=== PATIENT | female | born 1995 | race Caucasian/White ===

== ENCOUNTER → 2019-10-11 07:11 | Outpatient (CLI) | payer MEDICAID, SELFPAY ==
[2019-07-24 06:45] VITALS: BMI 46.3
--- NOTE | 2019-10-12 17:02 | PFTCOMP ---
COMPLETE PULMONARY FUNCTION TEST INTERPRETATION Brief HPI: Patient is a 24 year old female, currently under the care of myself, who presents to [facility] for complete pulmonary function tests secondary to diagnosis of asthma. Respiratory therapist reports good effort and reproducible results. Interpretation: Forced expiration spirometry shows a mild large airways obstructive ventilatory defect with an FEV1 of 118% predicted. There is a significant bronchodilator response in FEV1 by strict ATS criteria. Spirograms are of good quality and plateau normally. The respiratory flow volume loop shows a normal pattern. Lung volumes by body plethysmography show an elevated total lung capacity at 6.89 L, 124% predicted. All other lung volumes are increased symmetrically. Diffusion capacity by carbon monoxide is normal at 86% predicted. The airway resistance is normal. No previous pulmonary function tests were available for review. Impression: Fully reversible mild large airways obstructive ventilatory defect, diagnostic of asthma.
== END ==
PROVIDERS: Family Provider Student in an Organized Health Care Education/Training Program; PCP Student in an Organized Health Care Education/Training Program; Referring Provider Internal Medicine Critical Care Medicine; Visit Provider Internal Medicine Critical Care Medicine
DX: J45.50 Severe persistent asthma, uncomplicated (principal)
CPT/HCPCS: 94060; 94726; 94729

== ENCOUNTER → 2020-07-31 15:54 | Outpatient (CLI) | payer MEDICAID, SELFPAY ==
[2020-07-31 11:12] VITALS: BMI 47.4
--- NOTE | 2020-07-31 15:56 | US_ITS ---
STUDY: ULTRASOUND OF THE FEMALE PELVIS - COMPLETE REASON FOR EXAM: Female, 25 years old. Follow-up right ovarian cyst. LMP: 07/25/2020. TECHNIQUE: Transvaginal TECHNICAL QUALITY: Adequate. COMPARISON: None. FINDINGS: The uterus is anteverted and is in a midline position. The uterus measures 6.9 x 3.9 x 3.2 cm. There is a Nabothian cyst of the cervix. The endometrium measures 5 mm in thickness, and is hyperechoic. There is minimal cystic change with echogenic foci in the lower uterine segment of uncertain etiology. There is no demonstrated endometrial mass. There is no demonstrated myometrial mass. I.U.D. - The patient does not have an I.U.D. The right ovary is visualized. The right ovary measures 4.6 x 2.9 x 2.2 cm. There are multiple follicles of the right ovary with a dominant 2.0 x 1.8 x 1.5 cm septated cyst.. There is no visualized right adnexal mass or complex lesion. There is normal arterial and normal venous vascularity. The left ovary is visualized. The left ovary measures 2.5 x 2.2 x 1.4 cm. There are multiple follicles of the left ovary without a dominant cyst. There is no visualized left adnexal mass or complex lesion. There is normal arterial and normal venous vascularity. There is no fluid in the cul-de-sac. The urinary bladder is nondistended.. Polycystic ovary disease: No. US/Transvaginal Non- IMPRESSION: 1. Small septated cyst in the right ovary. 2. Normal left ovary and uterus. Electronically Signed: Lucio Leavitt DO at 16:45 EDT Tel [phone], Service support ,
== END ==
PROVIDERS: PCP Student in an Organized Health Care Education/Training Program; Referring Provider Obstetrics & Gynecology; Visit Provider Obstetrics & Gynecology
DX: N83.201 Unspecified ovarian cyst, right side (principal)
CPT/HCPCS: 76830

== ENCOUNTER → 2021-01-16 | Outpatient (CLI) | payer MEDICAID, SELFPAY ==
[2021-01-16 09:52] VITALS: BMI 46.0
[2021-01-20 16:44] LABS: HPV Reflexed? NOT INDICATED
== END | disposition home or self-care (01) ==
LOC: LABSPEC 12:34
PROVIDERS: PCP Student in an Organized Health Care Education/Training Program; Visit Provider Obstetrics & Gynecology
DX: Z12.4 Encounter for screening for malignant neoplasm of cervix (principal)
CPT/HCPCS: 88175; G0145

== ENCOUNTER 2021-02-09 16:42 | Emergency (ER) | payer MEDICAID, SELFPAY ==
[2021-01-16 09:52] VITALS: BMI 46.0
[2021-02-09 16:43] VITALS: BP 151/97; PULSE 94; RESP 16; TEMP 36.6; O2SAT 99; BMI 47.7
--- NOTE | 2021-02-09 16:54 | CT_ITS ---
INDICATION: Kidney Stone EXAMINATION: CT Abdomen And Pelvis W/O Contrast Injection TECHNIQUE: Helically acquired images were obtained of the abdomen and pelvis without the use of IV contrast. A radiation dose optimization technique was used for this scan. Oral contrast: None. COMPARISON: None FINDINGS: Evaluation of the solid organs and vascular structures is limited without intravenous contrast. Visualized lung bases: Unremarkable Liver: Unremarkable Gallbladder: Surgically absent. Spleen: Unremarkable Pancreas: Unremarkable Adrenal Glands: Unremarkable Kidneys: Unremarkable Vasculature: Unremarkable GI Tract: Unremarkable Lymphadenopathy: None Peritoneum: No ascites. Bladder: Unremarkable Reproductive organs: Unremarkable Bones/Soft tissues: No suspicious osseous or soft tissue lesions CT/Abdomen/Pelvis without Cont IMPRESSION: No acute abnormalities in the abdomen or pelvis. Specifically, no evidence of renal or ureteral stones. Electronically Signed: Ajay Deng MD at 19:18 EDT Tel , Service support ,
--- NOTE | 2021-02-09 16:58 | EX.ED.DYSGE1 ---
HPI History of Present Illness Chief Complaint: Flank Pain Informant: patient Onset/Context/Timing Onset: Yesterday Context: Gradual Onset Timing: Intermittent Current Severity: Moderate Maximum Severity: Moderate Narrative Narrative: The patient is a 26-year-old female medical history significant for GERD, asthma, and recurrent UTI presents to the emergency department flank pain. The patient states that for the past 3 days, she has had a strong odor to her urine. She states over the past 24 hours, she has begun to have pain in her right flank. She was mildly nauseated. She denies any fevers or chills. She denies history of kidney stone. She denies hematuria. She states that she is otherwise been in her normal state of health. She has not been on antibiotics recently. Prior similar symptoms: Yes Recent Illness/Hospitalization: No [facility], [facility] Medical History Allergic rhinitis Cough Dyspnea Environmental allergies GERD (gastroesophageal reflux disease) Leukocytosis Mild intermittent asthma in adult without complication LUCY (obstructive sleep apnea) SOB (shortness of breath) Home Medications albuterol sulfate 90 mcg/actuation aerosol inhaler 1 puff INHALATION Q6H 07/23/19 [History Last Taken Unknown] fluticasone furoate 200 mcg-vilanterol 25 mcg/dose inhalation powder 1 inh INHALATION DAILY #60 ea 03/20/20 [Rx Last Taken Unknown] labetalol 200 mg tablet 200 mg PO BID 01/16/21 [History Last Taken Unknown] levonorgestrel-ethinyl estradiol 0.1 mg-20 mcg tablet 1 tablet PO DAILY #84 tablet 01/16/21 [Rx Last Taken Unknown] ondansetron 4 mg PO Q8H PRN PRN #10 tab 02/09/21 [Rx Last Taken Unknown] Allergy/AdvReac Type Severity Reaction Status Date / Time Penicillins Allergy rash Verified 02/09/21 16:42 Family History Father CVA (cerebral vascular accident) Mother Intrinsic asthma Grandfather Diabetes COPD (chronic obstructive pulmonary disease) Surgical History History of foot surgery History of tonsillectomy S/P cholecystectomy Social History Smoking Status: Never smoker alcohol intake: never substance use type: does not use caffeine: Yes what type of physical activity do you participate in: none seatbelt use: always do you feel safe at home: Yes ROS ROS ED Constitutional Constitutional ED: Denies chills or fever(s) Eyes Eyes: Denies blurry vision or change in vision ENT ENT ED: Denies ear pain or sore throat Cardiovascular Cardiovascular: Denies chest pain or palpitations Respiratory/Chest Respiratory/Chest: Denies cough, dyspnea or dyspnea on exertion Gastrointestinal Gastrointestinal: Reports nausea; Denies abdominal pain or vomiting Genitourinary Genitourinary ED: Reports dysuria and urinary frequency Musculoskeletal Musculoskeletal: Reports back pain and myalgias; Denies arthralgias Integumentary Denies rash Neurologic Neurologic: Denies headache(s) or paresthesias Psychiatric Psychiatric: Denies anxiety or depression Endocrine Endocrinology: Denies polydipsia or polyuria Allergic/Immunologic Allergic/Immunologic ED: Denies urticaria EXAM Physical Exam Const Vital Signs: 02/09/21 16:43 Temperature 97.9 F Temperature Source Oral Pulse Rate 94 Respiratory Rate 16 Blood Pressure 151/97 H Blood Pressure Mean 115 Pulse Ox 99 Oxygen Delivery Method Room Air Positive well nourished and well developed General Appearance ED: well developed HEENT Reports normocephalic, head/scalp atraumatic and moist mucous membranes Eyes PERRL and EOMs intact bilaterally Neck no lymphadenopathy and supple General: Negative for tenderness Chest Wall inspection of chest normal Resp normal respiratory effort and clear to auscultation bilaterally Cardio regular rate, regular rhythm and no murmurs GI normal to inspection, nondistended, normoactive bowel sounds Palpation: Negative for tender, guarding or rebound tenderness present Back/Spine General Back: CVA tenderness Cervical Spine: Negative for cervical spine tenderness Thoracic Spine / Upper Back: Negative for thoracic spinal tenderness Extremity normal to inspection General Extremety ED: Negative for tenderness Neuro oriented x3 and CN's II-XII intact bilaterally Neuro Narrative: No focal deficits appreciated. Sensorium / Orientation: alert Psych mental status grossly normal Skin no rashes or lesions noted, no wounds and skin turgor normal MDM MDM MDM Narrative Medical decision making narrative: The patient presents with right-sided flank pain. She states that she did have strong odor to her urine. She does have a history of kidney infection. She has mild tenderness in the CVA area. IV was established. The patient was given fluids, Toradol, and Zofran. She was feeling improved. Labs are relatively unremarkable. Her urine does not show evidence of infection. She is not . There was some blood and trace ketones. She does have a bicarb of 19. The patient underwent CT imaging. There is no evidence of obstructing stone. There is no enhancement consistent with James. Again, her urine is normal. At this point, I am unclear of the acute etiology of her pain but I do not suspect a dangerous process. Her skin shows no rash. Patient was counseled on oral hydration. At this point, she will be discharged home. Impression 1. Right flank pain Lab Data Attestation: I reviewed the patient's lab results. Labs: Laboratory Results - last 24 hr 02/09/21 02/09/21 02/09/21 17:01 17:01 17:11 WBC 7.5 RBC 5.08 Hgb 14.1 Hct 43.4 MCV 85.4 MCH 27.8 MCHC 32.5 RDW Std Deviation 38.9 RDW Coeff of Juan Diego 12.7 Plt Count 288 MPV 10.3 Immature Gran % (Auto) 0.100 Neut % (Auto) 69.0 Lymph % (Auto) 21.2 Brewster % (Auto) 7.0 Eos % (Auto) 2.0 Baso % (Auto) 0.7 Absolute Neuts (auto) 5.1 Absolute Lymphs (auto) 1.58 Nucleated RBC % 0 Sodium Potassium Chloride Carbon Dioxide Anion Gap BUN Creatinine Estim Creat Clear Calc Est GFR (MDRD) Af Amer Est GFR (MDRD) Non-Af BUN/Creatinine Ratio Glucose Calcium Urine Color Yellow Urine Clarity Clear Urine pH 7.0 Ur Specific Alpine 1.010 Urine Protein 30 H Urine Glucose (UA) Normal Urine Ketones 5 H Urine Occult Blood 150 H Urine Nitrite Negative Urine Bilirubin Negative Urine Urobilinogen Normal Ur Leukocyte Esterase Negative Urine RBC 0-5 SEEN Urine WBC 0 SEEN Ur Squamous Epith Cells 0-5 SEEN Urine Bacteria 0 SEEN Urine Mucus 1+ Urine Test Negative 02/09/21 17:11 WBC RBC Hgb Hct MCV MCH MCHC RDW Std Deviation RDW Coeff of Juan Diego Plt Count MPV Immature Gran % (Auto) Neut % (Auto) Lymph % (Auto) Brewster % (Auto) Eos % (Auto) Baso % (Auto) Absolute Neuts (auto) Absolute Lymphs (auto) Nucleated RBC % Sodium 136 Potassium 3.7 Chloride 109 H Carbon Dioxide 19.0 L Anion Gap 8 BUN 10 Creatinine 0.80 Estim Creat Clear Calc 98.88 Est GFR (MDRD) Af Amer 111 Est GFR (MDRD) Non-Af 92 BUN/Creatinine Ratio 12.6 Glucose 101 Calcium 8.9 Urine Color Urine Clarity Urine pH Ur Specific Alpine Urine Protein Urine Glucose (UA) Urine Ketones Urine Occult Blood Urine Nitrite Urine Bilirubin Urine Urobilinogen Ur Leukocyte Esterase Urine RBC Urine WBC Ur Squamous Epith Cells Urine Bacteria Urine Mucus Urine Test Radiography Diagnostic Testing: Radiology Impression Abdomen/Pelvis CT 02/09/21 16:54 IMPRESSION: No acute abnormalities in the abdomen or pelvis. Specifically, no evidence of renal or ureteral stones. Electronically Signed: Ajay Deng MD at 19:18 EDT Tel , Service support , Discharge Plan Triage Chief Complaint: Flank Pain ED Provider: Desean Rothman Dx/Rx/DC Orders Instructions: ED Flank Pain, Uncertain Cause Prescriptions: New ondansetron [ondansetron] 4 MG tablet 4 mg PO Q8H PRN PRN (Reason: Nausea) Qty: 10 RF: 0 No Action albuterol sulfate [Ventolin HFA] 90 mcg/actuation HFA aerosol inhaler 1 puff INHALATION Q6H RF: 0 labetalol 200 mg tablet 200 mg PO BID RF: 0 levonorgestrel-ethinyl estrad 0.1-20 mg-mcg tablet 1 tablet PO DAILY Qty: 84 RF: 4 Breo Ellipta 200-25 mcg/dose blister with device 1 inh INHALATION DAILY Qty: 60 RF: 6 Primary Care Provider: Amy Chan Referrals: Amy Chan MD [Primary Care Provider] -
[2021-02-09] MEDS: Ondansetron 4 MG/2 ML Vial IV (17:09)
[2021-02-09] MEDS: 0.9% Normal Saline 1,000 ML 250 ML IV (17:09)
[2021-02-09] MEDS: Ketorolac 15 MG/ML Vial IV (17:09)
[2021-02-09 17:17] LABS: Bacteria 0 SEEN /hpf (None Seen); White Blood Cells 0 SEEN /hpf (0-5)
[2021-02-09 17:33] LABS: Absolute Lymphocyte Count 1.58 X10^3/uL (0.83-4.51); Absolute Neutrophil Count 5.1 X10^3/uL (2.0-7.7); Basophil# 0.05 X10^3/uL; Basophil% 0.7 % (0-1); Eosinophil# 0.15 X10^3/uL; Hematocrit 43.4 % (37-47); Hemoglobin 14.1 g/dL (12.0-15.0); Lymphocyte # 1.58 X10^3/ul (0.83-4.51); Lymphocyte % 21.2 % (19-41); Mean Corp Hgb Conc 32.5 g/dL (32-36); Mean Corpuscular Hgb 27.8 pg (27.0-32.0); Mean Corpuscular Volume 85.4 fL (81-99); Mean Platelet Vol. 10.3 fl (6.2-12.0); Monocyte# 0.52 X10^3/uL; NRBC Flagged by Analyzer 0 % (0-5); Neutrophil # 5.14 X10^3/uL (2.7-7.7); Platelet Count 288 K/mm3 (150-450); RBC Distribution Width CV 12.7 % (11.6-14.6); RBC Distribution Width SD 38.9 fl (35.1-43.9); Red Blood Count 5.08 M/mm3 (4.2-5.4); White Blood Count 7.5 K/mm3 (4.4-11.0)
[2021-02-09 17:36] LABS: Color, Urine Yellow (Yellow); Glucose, Dipstick Normal (Normal); Ketone-Dipstick 5 mg/dl (Negative); Leukocyte Esterase-Dipstick Negative /ul (Negative); Nitrite-Dipstick Negative (Negative); Occult Blood-Urine 150 /ul (Negative); Protein-Dipstick 30 mg/dl (Negative); Urine Bilirubin Dipstick Negative (Negative); Urine Clarity Clear (Clear); Urine Urobilinogen Normal (Normal)
[2021-02-09 17:51] LABS: Internal QC Validated? YES +Cl - CLEAR BKGD; Pregnancy, Urine Negative Negative
[2021-02-09 17:56] LABS: Mucous, Urine 1+ /hpf (<or=2+); Red Blood Cells-Urine 0-5 SEEN /hpf (0-5); Squamous Epithelial Cells - UA 0-5 SEEN /hpf (5-10)
[2021-02-09 18:03] LABS: Anion Gap 8 (5-15); BUN 10 mg/dL (7-18); BUN/Creat Ratio 12.6 RATIO (10-20); Calcium,Total 8.9 mg/dL (8.5-10.1); Chloride 109 mmol/L (98-107); EST Glomerular Filtration Rate 92 mL/min (>60); Est Glom Filt Rate - Afr Amer 111 mL/min (>60); Estimated Creatinine Clearance 98.88 ml/min; Glucose 101 mg/dL (74-106); Potassium 3.7 mmol/L (3.5-5.1); Sodium Level 136 mmol/L (136-145)
[2021-02-09 19:35] VITALS: RESP 16
== END 2021-02-09 19:36 | disposition home or self-care (01) ==
LOC: ED 17:14
PROVIDERS: Emergency Provider Emergency Medicine; PCP Student in an Organized Health Care Education/Training Program
DX: R10.9 Unspecified abdominal pain (principal); J45.20 Mild intermittent asthma, uncomplicated; Z79.3 Long term (current) use of hormonal contraceptives; Z79.51 Long term (current) use of inhaled steroids
CPT/HCPCS: 74176; 80048; 81001; 81025; 85025; 96361; 96374; 96375; 99283; J7030; A4216; J2405

== ENCOUNTER 2021-09-07 17:01 | Emergency (ER) | payer MEDICAID, SELFPAY ==
[2021-09-07 17:01] VITALS: BP 164/119; PULSE 102; RESP 17; TEMP 39; O2SAT 100; BMI 46.5
--- NOTE | 2021-09-07 17:08 | RAD_ITS ---
STUDY: X-RAY CHEST REASON FOR EXAM: Female, 26 years old. Cough. Cold symptoms. Chest congestion with body aches and headache and fever. Symptoms began 4 days ago. TECHNIQUE: Single AP portable view of the chest. COMPARISON: None. FINDINGS: The lungs are clear and expanded. There is no demonstrated pleural abnormality. Normal size heart. Normal mediastinum and erica. Normal visualized pulmonary arteries. Normal visualized aortic arch and descending thoracic aorta. Normal visualized thoracic spine. Normal visualized ribs, clavicles, and shoulders. There is no demonstrated abnormality of the visualized soft tissue structures of the upper abdomen. RAD/Chest 1 View IMPRESSION: Normal x-ray examination of the chest. Electronically Signed: Lucio Leavitt DO at 17:18 EST Tel [phone], Service support ,
[2021-09-07 17:38] VITALS: TEMP 37.3
--- NOTE | 2021-09-07 18:18 | EX.ED.DYSGE1 ---
HPI History of Present Illness Chief Complaint: Fever Informant: patient Narrative Narrative: 26-year-old female presents to the emergency room on day 4 of not feeling well. The patient states that she has body aches headache fever malaise rhinorrhea and cough. No change in her chronic diarrhea. She does have a history of asthma. She is not vaccinated [facility] Medical History Allergic rhinitis Environmental allergies GERD (gastroesophageal reflux disease) Leukocytosis LUCY (obstructive sleep apnea) Home Medications labetalol 200 mg tablet 200 mg PO BID 01/16/21 [History Last Taken Unknown] levonorgestrel-ethinyl estradiol 0.1 mg-20 mcg tablet 1 tablet PO DAILY #84 tablet 01/16/21 [Rx Last Taken Unknown] ondansetron 4 mg PO Q8H PRN PRN #10 tab 02/09/21 [Rx Last Taken Unknown] medroxyprogesterone 150 mg/mL intramuscular suspension 150 mg IM [id number] #1 ml 03/23/21 [Rx Last Taken Unknown] albuterol sulfate 2.5 mg INHALATION Q4H PRN #180 ml 05/27/21 [Rx Last Taken Unknown] albuterol sulfate 90 mcg/actuation aerosol inhaler 1 puff INHALATION Q6H #8.5 g 05/27/21 [Rx Last Taken Unknown] fluticasone furoate 200 mcg-vilanterol 25 mcg/dose inhalation powder 1 inh INHALATION DAILY #60 ea 05/27/21 [Rx Last Taken Unknown] metformin 500 mg tablet 500 mg PO DAILY 05/27/21 [History Last Taken Unknown] dexamethasone 6 mg PO DAILY #7 tab 09/07/21 [Rx Last Taken Unknown] ibuprofen 600 mg PO Q6H PRN PRN #20 tablet 09/07/21 [Rx Last Taken Unknown] Allergy/AdvReac Type Severity Reaction Status Date / Time Penicillins Allergy rash Verified 09/07/21 17:06 Family History Father CVA (cerebral vascular accident) Mother Intrinsic asthma Grandfather Diabetes COPD (chronic obstructive pulmonary disease) Surgical History History of foot surgery History of tonsillectomy S/P cholecystectomy Social History Smoking Status: Never smoker alcohol intake: never substance use type: does not use caffeine: Yes what type of physical activity do you participate in: none seatbelt use: always do you feel safe at home: Yes ROS ROS ED Constitutional Constitutional ED: Reports chills, fever(s) and sweats; Denies weight loss Eyes Eyes: Denies change in vision or diplopia ENT ENT ED: Reports rhinorrhea; Denies ear pain or sore throat Cardiovascular Cardiovascular: Denies chest pain, orthopnea, palpitations or racing heartbeat Respiratory/Chest Respiratory/Chest: Reports cough; Denies dyspnea or orthopnea Gastrointestinal Gastrointestinal: Reports diarrhea and nausea; Denies abdominal pain or vomiting Genitourinary Genitourinary ED: Denies dysuria, hematuria or urinary frequency Musculoskeletal Musculoskeletal: Reports myalgias; Denies arthralgias Integumentary Denies abscess or rash Neurologic Neurologic: Reports headache(s); Denies weakness Psychiatric Psychiatric: Denies anxiety, depression, suicidal ideation or suicidal thoughts Endocrine Endocrinology: Denies polydipsia, polyphagia or polyuria Allergic/Immunologic Allergic/Immunologic ED: Denies mouth swelling, tongue swelling or urticaria EXAM Physical Exam Const Vital Signs: 09/07/21 17:01 09/07/21 17:38 Temperature 102.2 F H 99.1 F Temperature Source Temporal Oral Pulse Rate 102 H Respiratory Rate 17 Respiratory Effort Normal Non-Labored Respiratory Pattern Normal Blood Pressure 164/119 H Blood Pressure Mean 134 Pulse Ox 100 Oxygen Delivery Method Room Air Positive well nourished, well developed and obese General Appearance ED: well developed Nutritional Appearance: obese HEENT Reports normocephalic, head/scalp atraumatic, TM's clear and moist mucous membranes HEENT Narrative: Rhinorrhea Negative for trauma Tympanic Membrane ED: Yes TM's clear Eyes PERRL and EOMs intact bilaterally Neck no lymphadenopathy, supple and no JVD Resp normal respiratory effort and clear to auscultation bilaterally Cardio regular rate, regular rhythm and no murmurs GI normal to inspection, nondistended, normoactive bowel sounds and non-tender Palpation: soft Back/Spine no CVA tenderness and normal ROM Extremity normal to inspection General Extremety ED: Negative for edema General Extremity: Negative for edema Neuro oriented x3 and CN's II-XII intact bilaterally Sensorium / Orientation: alert Motor Exam: strength 5/5 throughout Psych Mood & Affect: tearful; Negative for depressed Skin no rashes or lesions noted and no wounds MDM MDM MDM Narrative Medical decision making narrative: My interpretation of the chest x-ray is no acute process. Patient is Covid positive. Because of her history of asthma ago placed her on dexamethasone and she meets qualifications for monoclonal antibody treatment which she is interested in. Radiography Diagnostic Testing: Clinical Impression(s) from Imaging Studies Chest X-Ray 09/07/21 17:08 IMPRESSION: Normal x-ray examination of the chest. Electronically Signed: Lucio Leavitt DO at 17:18 EST Tel [phone], Service support , Discharge Plan Triage Chief Complaint: Fever ED Provider: Tony Thompson Dx/Rx/DC Orders Clinical Impression: COVID-19 Instructions: Coronavirus Disease 2019 (COVID-19): Caring for Yourself or Others Prescriptions: New dexamethasone 6 MG tablet 6 mg PO DAILY Qty: 7 RF: 0 ibuprofen 600 MG tablet 600 mg PO Q6H PRN PRN (Reason: Pain) Qty: 20 RF: 0 No Action labetalol 200 mg tablet 200 mg PO BID RF: 0 levonorgestrel-ethinyl estrad 0.1-20 mg-mcg tablet 1 tablet PO DAILY Qty: 84 RF: 4 medroxyprogesterone [Depo-Provera] 150 mg/mL suspension 150 mg IM [id number] Qty: 1 RF: 4 metformin 500 mg tablet 500 mg PO DAILY RF: 0 Breo Ellipta 200-25 mcg/dose blister with device 1 inh INHALATION DAILY Qty: 60 RF: 11 albuterol sulfate [Ventolin HFA] 90 mcg/actuation HFA aerosol inhaler 1 puff INHALATION Q6H Qty: 8.5 RF: 1 albuterol sulfate 2.5 mg /3 mL (0.083 %) solution for nebulization 2.5 mg inhalation Q4H PRN (Reason: shortness of breath or wheezing) Qty: 180 RF: 1 ondansetron [ondansetron] 4 MG tablet 4 mg PO Q8H PRN PRN (Reason: Nausea) Qty: 10 RF: 0 Other Ambulatory Orders: COVID Outpatient Monoclonal Antibody Referral (Routine) Timeframe: 1 Day Facility: [facility] - Location: [facility] Ordered By: Dr. Tony Thompson Primary Care Provider: Britni Bell Referrals: Britni Bell DO [Primary Care Provider] - As Needed Disposition Disposition: Home, Self Care
[2021-09-07] MEDS: Ibuprofen 600 MG Tablet PO (18:23)
[2021-09-07] MEDS: dexAMETHasone 4 MG Tablet 6 MG PO (18:23)
== END 2021-09-07 18:29 | disposition home or self-care (01) ==
PROVIDERS: Emergency Provider Emergency Medicine; PCP Family Medicine
DX: U07.1 COVID-19 (principal); J45.909 Unspecified asthma, uncomplicated; G47.33 Obstructive sleep apnea (adult) (pediatric); K21.9 Gastro-esophageal reflux disease without esophagitis; Z79.84 Long term (current) use of oral hypoglycemic drugs; Z79.3 Long term (current) use of hormonal contraceptives; Z79.899 Other long term (current) drug therapy
CPT/HCPCS: 71045; 87426; 99283

== ENCOUNTER 2021-09-10 14:54 | Outpatient (CLI) | payer MEDICAID, SELFPAY ==
[2021-09-10] MEDS: 0.9% Saline Lock 10 ML Syringe IV (15:15)
[2021-09-10 15:17] VITALS: BP 137/93; PULSE 91; RESP 16; TEMP 37.3; O2SAT 98; BMI 45.1
[2021-09-10 15:59] VITALS: BP 130/100; PULSE 79; RESP 16; TEMP 36.9; O2SAT 99
[2021-09-10 16:48] VITALS: BP 142/101; PULSE 70; RESP 16; TEMP 37; O2SAT 100
== END 2021-09-10 17:00 | disposition home or self-care (01) ==
LOC: MS3OUT 14:55 → MS3 14:55
PROVIDERS: PCP Family Medicine; Referring Provider Nurse Practitioner Adult Health; Visit Provider Nurse Practitioner Adult Health
DX: Z23 Encounter for immunization (principal); U07.1 COVID-19; J98.4 Other disorders of lung
CPT/HCPCS: J7050; M0245; Q0245; A4216

== ENCOUNTER 2021-11-26 09:42 | Outpatient (CLI) | payer MEDICAID, SELFPAY | END 2021-11-26 23:59 | disposition home or self-care (01) | LOC: LABSPEC 09:43 | PROVIDERS: PCP Family Medicine; Referring Provider Nurse Practitioner Acute Care; Visit Provider Nurse Practitioner Acute Care | DX: J45.50 Severe persistent asthma, uncomplicated (principal) | CPT/HCPCS: 87070; 87205 ==

== ENCOUNTER 2022-03-22 11:24 | Emergency (ER) | payer MEDICAID, SELFPAY ==
[2022-03-22 11:25] VITALS: BP 169/114; PULSE 80; RESP 14; TEMP 36.6; O2SAT 100; BMI 46.7
[2022-03-22 12:13] VITALS: BP 154/117; PULSE 85; RESP 15; O2SAT 98
--- NOTE | 2022-03-22 12:23 | ED.VIS.BACK ---
HPI History of Present Illness Chief Complaint: Back Narrative Narrative: 27-year-old female here for back pain. Patient has significant history of obesity, asthma, GERD. The patient states she has had acute on chronic right hip and back pain. Patient states pain is worse over the last several days. Also pain is constant, severe, rating down right leg. Denies any trauma, falls, recent heavy lifting. Patient denies any bowel or bladder incontinence, urinary retention IV drug use, recent [place] catheterization, recent spinal surgery. Old chart reviewed: No recent ED visits. No recent advanced imaging of the spine [facility] Medical History (Reviewed 11/26/21 @ 09:20 by Gianna Rob OUT OF TOWN COLLECTION CLERK, OUT OF TOWN COLLECTION CLERK-C) Allergic rhinitis COVID-19 affecting childbirth Environmental allergies GERD (gastroesophageal reflux disease) Leukocytosis LUCY (obstructive sleep apnea) Home Medications albuterol sulfate 2.5 mg (3 mL) inhalation Q4H PRN shortness of breath or wheezing #180 mL 05/27/21 [Rx Last Taken Unknown] albuterol sulfate 90 mcg/actuation aerosol inhaler (Ventolin HFA) 1 puff inhalation Q6H #8.5 grams 05/27/21 [Rx Last Taken Unknown] metformin 500 mg tablet 500 mg PO DAILY 05/27/21 [History Last Taken Unknown] ibuprofen 600 mg tablet 600 mg PO Q6H PRN PRN Pain #20 TABLETS 09/07/21 [Rx Last Taken Unknown] fluticasone furoate 200 mcg-vilanterol 25 mcg/dose inhalation powder (Breo Ellipta) 1 inh inhalation DAILY #60 ea 11/26/21 [Rx Last Taken Unknown] levonorgestrel 20 mcg/24 hours (7 yrs) 52 mg intrauterine device (Mirena) 1 insert intrauterine ONCE 11/26/21 [History Last Taken Unknown] Allergy/AdvReac Type Severity Reaction Status Date / Time Penicillins Allergy rash Verified 03/22/22 11:27 Family History (Reviewed 11/26/21 @ 09:20 by Gianna Rob OUT OF TOWN COLLECTION CLERK, OUT OF TOWN COLLECTION CLERK-C) Father CVA (cerebral vascular accident) Mother Intrinsic asthma Grandfather Diabetes COPD (chronic obstructive pulmonary disease) Surgical History History of foot surgery History of tonsillectomy S/P cholecystectomy Social History (Reviewed 11/26/21 @ 09:20 by Gianna Rob OUT OF TOWN COLLECTION CLERK, OUT OF TOWN COLLECTION CLERK-C) Smoking Status: Never smoker alcohol intake: never substance use type: does not use caffeine: Yes what type of physical activity do you participate in: none seatbelt use: always do you feel safe at home: Yes ROS ROS ED Eyes Eyes: Denies other visual disturbances ENT ENT ED: Denies ear pain Cardiovascular Cardiovascular: Denies chest pain Respiratory/Chest Respiratory/Chest: Denies dyspnea Gastrointestinal Gastrointestinal: Denies abdominal pain Genitourinary Genitourinary ED: Denies dysuria Musculoskeletal Musculoskeletal: Reports arthralgias, back pain, joint pain and other Details: Noted right hip pain Integumentary Denies rash Neurologic Neurologic: Denies dizziness, focal weakness, numbness, syncope or weakness Psychiatric Psychiatric: Denies homicidal ideation or suicidal ideation EXAM Physical Exam Const Vital Signs: 03/22/22 11:25 03/22/22 12:13 Temperature 97.9 F Temperature Source Temporal Pulse Rate 80 85 Respiratory Rate 14 15 Blood Pressure 169/114 H 154/117 H Blood Pressure Mean 132 129 Pulse Ox 100 98 Oxygen Delivery Method Room Air Room Air Negative for alert or oriented x3 General Appearance ED: Negative for comfortable Orientation / Consciousness: Negative for awake HEENT Denies normocephalic Face and Sinus: Negative for face symmetric External Ear: Negative for external ears normal Mouth ED: No moist mucous membranes normal Throat: Negative for posterior oropharynx normal Eyes Negative for PERRL or EOMs intact bilaterally Neck No full ROM Carotids: other Other Details: no carotid bruits Chest Wall Negative for inspection of chest normal Resp No normal respiratory effort, No no retractions, No no use of accessory muscles and No clear to auscultation bilaterally Cardio Negative for no murmurs or peripheral pulses 2+ throughout GI soft to palpation, non-tender and non-distended; Negative for no bruits GI Narrative: no pulsatile abdominal masses Negative for no CVA tenderness Back/Spine Back/Spine Narrative: TTP over the lower lumbar spine, right paraspinal musculature. No step-offs or deformities. General Back: Negative for CVA tenderness Cervical Spine: Negative for cervical ROM normal Lumbar Spine / Lower Back: straight leg raise positive - left Extremity Negative for normal to inspection or full ROM Extremity Narrative: No significant tenderness with logrolling of the leg, intact flexion extension, internal/external rotation of the right hip. Neuro Sensory Exam: other Intact sensation all dermatomes of the right and left lower extremity Motor Exam: strength 5/5 throughout Deep Tendon Reflexes: Rt Patellar (L4): 2+, Lt Patellar (L4): 2+, Rt Ankle (S1): 2+ and Lt Ankle (S1): 2+ Deep Tendon Reflexes Back: Rt Patellar (L4): 2+, Lt Patellar (L4): 2+, Rt Ankle (S1): 2+ and Lt Ankle (S1): 2+ Plantar Reflex: Downgoing: bilateral MDM MDM MDM Narrative Medical decision making narrative: 27-year-old female here with acute on chronic back and right hip pain. No recent trauma. No back pain red flags. Have a low suspicion for space-occupying lesion such as epidural abscess, hematoma, mass at this time given the patient is nonfocal neurologic exam and lack of risk factors. Patient's likely some from musculoskeletal etiology. I obtained an image of the right hip to rule out arthritis, bony abnormality. X-ray was unremarkable. Also obtain urinalysis to rule out UTI. Urine was unremarkable for signs of infection. Gave the patient [place], lidocaine patch, ibuprofen with improvement in symptoms. Lab Data Labs: Laboratory Results - last 24 hr 03/22/22 13:40 Urine Color Yellow Urine Clarity Sl. Cloudy Urine pH 7.0 Ur Specific [place] 1.010 Urine Protein Negative Urine Glucose (UA) Normal Urine Ketones Negative Urine Occult Blood 10 H Urine Nitrite Negative Urine Bilirubin Negative Urine Urobilinogen Normal Ur Leukocyte Esterase Negative Urine RBC 0-5 SEEN Urine WBC 0 SEEN Ur Squamous Epith Cells 0-5 SEEN Urine Bacteria 0 SEEN Urine Mucus 0 SEEN Urine Test Negative Radiography Diagnostic Testing: Clinical Impression(s) from Imaging Studies Hip/Pelvis X-Ray 03/22/22 12:52 IMPRESSION: Normal x-ray examination of the pelvis and hip. Electronically Signed: Tim Ward MD at 13:42 EDT , Treatment and Re-Evaluation Narrative: On reevaluation the patient is able to ambulate. Pain was mildly better. Gave anti-inflammatory pain medicine instructions for home-going. Gave orthopedic follow-up. Discharge Plan Triage Chief Complaint: Back ED Provider: Bao Graec Dx/Rx/DC Orders Clinical Impression: Acute exacerbation of chronic low back pain, Acute lumbar radiculopathy, Acute pain of right hip Instructions: Back Exercises: Lower Back Stretch, ED Sciatica, ED RICE Prescriptions: No Action metformin 500 mg tablet 500 mg PO DAILY albuterol sulfate [Ventolin HFA] 90 mcg/actuation HFA aerosol inhaler 1 puff INHALATION Q6H Qty: 8.5 1RF albuterol sulfate 2.5 mg /3 mL (0.083 %) solution for nebulization 2.5 mg inhalation Q4H PRN (Reason: shortness of breath or wheezing) Qty: 180 1RF Mirena 20 mcg/24 hours (7 yrs) 52 mg intrauterine device 1 insert intrauterine ONCE Rx Instructions: as a single dose Breo Ellipta 200-25 mcg/dose blister with device 1 inh INHALATION DAILY Qty: 60 11RF ibuprofen 600 MG tablet 600 mg PO Q6H PRN PRN (Reason: Pain) Qty: 20 0RF Primary Care Provider: Britni Bell Referrals: Britni Bell DO [Primary Care Provider] - Activity Restrictions/Additional Instructions: Please go to your local pharmacy or drugstore and obtain Tylenol, ibuprofen and lidocaine or Salonpas patches for ongoing [place] for at home. Please return if you develop bowel or bladder incontinence, difficulty urinating, numbness weakness or loss sensation in your extremities, difficulty feeling your private parts. These are signs of an acute spinal emergency. Please follow-up with orthopedic surgery at your already scheduled appointment on Tuesday. Disposition Disposition: Home, Self Care
--- NOTE | 2022-03-22 12:52 | RAD_ITS ---
STUDY: X-RAY - PELVIS AND RIGHT HIP REASON FOR EXAM: Female, 27 years old. Injury/Pain TECHNIQUE: 3 views of the pelvis and hip. COMPARISON: None. FINDINGS: There is a non-specific bowel gas pattern. Normal visualized soft tissue structures. Normal bilateral iliac wings, sacroiliac joints and visualized sacrum. Normal bilateral superior and inferior pubic rami. Normal pubic symphysis. Normal bilateral ischial tuberosities. Normal visualized femoral head. Normal acetabulum. Normal hip joint. RAD/HIP, UNI W/ Pelvis 2-3 Views IMPRESSION: Normal x-ray examination of the pelvis and hip. Electronically Signed: Tim Ward MD at 13:42 EDT ,
[2022-03-22] MEDS: Ibuprofen 200 MG Tablet 400 MG PO (13:32)
[2022-03-22] MEDS: HYDROcodone Bitartrate/Apap 5/325 Tablet PO (13:32)
[2022-03-22 13:47] LABS: Bacteria 0 SEEN /hpf (None Seen); Mucous, Urine 0 SEEN /hpf (<or=2+); White Blood Cells 0 SEEN /hpf (0-5)
[2022-03-22 13:58] LABS: Color, Urine Yellow (Yellow); Glucose, Dipstick Normal (Normal); Ketone-Dipstick Negative (Negative); Leukocyte Esterase-Dipstick Negative /ul (Negative); Nitrite-Dipstick Negative (Negative); Occult Blood-Urine 10 /ul (Negative); Protein-Dipstick Negative (Negative); Urine Bilirubin Dipstick Negative (Negative); Urine Clarity Sl. Cloudy (Clear); Urine Urobilinogen Normal (Normal)
[2022-03-22 14:04] LABS: Red Blood Cells-Urine 0-5 SEEN /hpf (0-5); Squamous Epithelial Cells - UA 0-5 SEEN /hpf (5-10)
[2022-03-22 14:05] LABS: Internal QC Validated? YES +Cl - CLEAR BKGD; Pregnancy, Urine Negative Negative
[2022-03-22] MEDS: Lidocaine 5% Patch 1 PATCH TOPICAL (14:35)
== END 2022-03-22 14:38 | disposition home or self-care (01) ==
PROVIDERS: Emergency Provider Emergency Medicine; PCP Family Medicine; Visit Provider Emergency Medicine
DX: M54.50 Low back pain, unspecified (principal); M25.551 Pain in right hip; G89.29 Other chronic pain; M54.16 Radiculopathy, lumbar region; J45.909 Unspecified asthma, uncomplicated; G47.33 Obstructive sleep apnea (adult) (pediatric); K21.9 Gastro-esophageal reflux disease without esophagitis; E66.9 Obesity, unspecified; Z79.899 Other long term (current) drug therapy
CPT/HCPCS: 73502; 81001; 81025; 99284

== ENCOUNTER 2024-07-30 11:21 | Emergency (ER) | payer MEDICAID, SELFPAY ==
[2024-07-30 11:22] VITALS: BP 167/125; PULSE 77; RESP 19; TEMP 36.5; O2SAT 100; BMI 51.6
[2024-07-30 13:56] VITALS: BP 163/113; PULSE 75; RESP 18; O2SAT 97
--- NOTE | 2024-07-30 13:57 | ED.VIS.FEGU ---
HPI HPI - Female History of Present Illness Chief Complaint: Female C/O Detail of Chief Complaint: Abdominal pain Informant: patient Narrative Narrative: Patient presents to the emergency department with complaint of abdominal pain that started yesterday. Patient has an IUD and also started having some vaginal bleeding yesterday. Patient describes urinary frequency but no dysuria. She is noticing blood in the urine. She describes the pain as center of her abdomen radiating to the right side of the abdomen and into her right back. No history of kidney stones. She has had history of UTIs. She denies fevers or chills or sweats. [facility] Medical History Allergic rhinitis COVID-19 affecting childbirth Environmental allergies GERD (gastroesophageal reflux disease) Leukocytosis Non-smoker LUCY (obstructive sleep apnea) Home Medications ?Medication ?Instructions ?Recorded ?Last Taken ?Type levonorgestrel 21 mcg/24 hr (up to 1 insert intrauterine ONCE 11/26/21 Unknown History 8 years) 52 mg intrauterine device (Mirena) albuterol sulfate 2.5 mg/3 mL 2.5 mg (3 mL) inhalation Q4H PRN 12/21/22 Unknown Rx (0.083 %) solution for nebulization shortness of breath or wheezing #180 mL albuterol sulfate 90 mcg/actuation 1 puff inhalation Q6H #8.5 grams 12/21/22 Unknown Rx aerosol inhaler (Ventolin HFA) benzonatate 200 mg capsule 200 mg PO TID PRN cough #90 caps 12/21/22 Unknown Rx fluticasone furoate 200 1 inh inhalation DAILY #60 ea 12/21/22 Unknown Rx mcg-vilanterol 25 mcg/dose inhalation powder (Breo Ellipta) oxycodone-acetaminophen 5 mg-325 1 tab PO Q4H PRN 12/21/22 Unknown History mg tablet (Percocet) Nebulizer machine #1 ea 06/18/24 Unknown Rx hydrocodone-acetaminophen 5-325mg 1 tab PO Q4H PRN PRN Pain 2 days 07/30/24 Unknown Rx 5mg-325mg #10 TABLETS Allergy/AdvReac Type Severity Reaction Status Date / Time Penicillins Allergy rash Verified 07/30/24 11:24 Family History Father CVA (cerebral vascular accident) Mother Intrinsic asthma Grandfather Diabetes COPD (chronic obstructive pulmonary disease) Surgical History History of foot surgery History of tonsillectomy S/P cholecystectomy Social History Smoking Status: Never smoker alcohol intake: never substance use type: does not use caffeine: Yes what type of physical activity do you participate in: none seatbelt use: always do you feel safe at home: Yes ROS ROS ED Review of Systems ROS Unobtainable: other Constitutional Constitutional ED: Reports lethargy; Denies chills, fever(s), sweats or weight loss Eyes Eyes: Denies blurry vision, change in vision or diplopia ENT ENT ED: Denies rhinorrhea or sore throat Cardiovascular Cardiovascular: Reports chest pain and racing heartbeat; Denies orthopnea Respiratory/Chest Respiratory/Chest: Reports dyspnea and dyspnea on exertion; Denies cough, orthopnea or sputum Gastrointestinal Gastrointestinal: Reports abdominal pain and nausea; Denies diarrhea or vomiting Genitourinary Genitourinary ED: Reports hematuria and urinary frequency; Denies dysuria Musculoskeletal Musculoskeletal: Denies arthralgias, back pain, myalgias or neck pain Integumentary Denies abscess, Abrasions or rash Neurologic Neurologic: Denies headache(s) or weakness Psychiatric Psychiatric: Denies anxiety, depression or suicidal thoughts Endocrine Endocrinology: Denies polydipsia, polyphagia or polyuria Hematologic/Lymphatic Hematologic/Lymphatic: Denies easy bleeding, easy bruising or lymphadenopathy Allergic/Immunologic Allergic/Immunologic ED: Denies mouth swelling, tongue swelling or urticaria EXAM Physical Exam Const Vital Signs: 07/30/24 11:22 07/30/24 13:56 Temperature 97.7 F L Temperature Source Oral Pulse Rate 77 75 Respiratory Rate 19 H 18 Blood Pressure 167/125 H 163/113 H Blood Pressure Mean 139 129 Pulse Ox 100 97 Oxygen Delivery Method Room Air Room Air Positive well nourished and well developed General Appearance ED: well developed and NAD HEENT Reports TM's clear and moist mucous membranes normocephalic and atraumatic; Negative for trauma or tenderness Tympanic Membrane ED: Yes TM's clear Eyes PERRL and EOMs intact bilaterally General Eye ED: Negative for pale conjunctiva or scleral icterus Neck no lymphadenopathy, supple and no JVD General: Negative for tenderness Chest Wall inspection of chest normal and palpation of chest normal Chest: Negative for tenderness Resp normal respiratory effort and clear to auscultation bilaterally Effort and Inspection: Negative for respiratory distress or pain with movement Auscultation: Negative for rhonchi, wheezes or diminished lung sounds Cardio regular rate, regular rhythm, S1 normal heart sound, S2 normal heart sound and no murmurs Peripheral Pulses: pulses 2+ throughout GI normal to inspection, nondistended, normoactive bowel sounds, soft to palpation, non-distended and no masses GI Narrative: Patient with mild diffuse tenderness in the suprapubic region as well as the right lower quadrant with some guarding. There is no rebound, rigidity, or peritoneal signs. Mild CVA tenderness on the right. Back/Spine no CVA tenderness and no thoracic nor lumbar tenderness Extremity normal to inspection General Extremety ED: Negative for edema General Extremity: Negative for edema Neuro oriented x3, CN's II-XII intact bilaterally, no sensory deficits noted and gait normal Sensorium / Orientation: awake, alert, oriented to person, oriented to place and oriented to time Motor Exam: strength 5/5 throughout and strength abnormal Psych mental status grossly normal Skin no rashes or lesions noted and no wounds MDM MDM MDM Narrative Medical decision making narrative: Patient presents with right-sided abdomen and flank pain that started about 24 hours ago. Describes continuous discomfort and rates the pain a 7 out of 10. She has had some nausea and vomited 1 time 2 days ago but none since. She has history of some chronic diarrhea. She denies fevers. In the differential would be UTI versus kidney stone or acute appendicitis or other acute process. IV line established. CBC with differential obtained for white count 10.1 with hemoglobin 15 and platelet count of 255. Chemistries unremarkable. hCG was negative. Urinalysis without evidence of infection. She did have 5-10 RBCs. Patient had a CT scan of the abdomen pelvis that showed a right ovarian cyst measuring 4 x 3.7 cm. Appendix was visualized and was normal. No other acute findings. At this point suspect etiology of her pain may be the ovarian cyst. Low suspicion for torsion. Patient also has an IUD. This appears to be in good position. Patient will be given a prescription for a few Percocet for pain. She has a follow-up appointment in August 24 with her [facility] but she can call and see if she can move it up. She tells me she likely wants to have her IUD removed. Patient advised to return if worsening pain, fever, vomiting, or condition should worsen anyway. Shared decision making. Discussed with patient and her mother in the room. We discussed potentially obtaining a pelvic ultrasound to rule out ovarian torsion. She has had symptoms for more than 24 hours and clinically my suspicion is low for torsion. Patient would like to go on have children as she does not have any children. At this time she would prefer to not have the ultrasound to try to get and then follow-up with her [facility]. Patient has history of ovarian cysts. Lab Data Attestation: I reviewed the patient's lab results. Labs: Laboratory Results - last 24 hr 07/30/24 07/30/24 12:04 14:05 WBC 10.1 RBC 5.08 Hgb 15.1 H Hct 42.6 MCV 83.9 MCH 29.7 MCHC 35.4 RDW Std Deviation 39.1 RDW Coeff of [place] 12.7 Plt Count 255 MPV 10.7 Immature Gran % (Auto) 0.200 Neut % (Auto) 70.7 H Lymph % (Auto) 20.7 [place] % (Auto) 5.7 Eos % (Auto) 1.9 Baso % (Auto) 0.8 Absolute Neuts (auto) 7.2 Absolute Lymphs (auto) 2.09 Nucleated RBC % 0 Sodium 138 Potassium 3.1 L Chloride 108 H Carbon Dioxide 24.0 Anion Gap 6 BUN 9 Creatinine 0.68 Estim Creat Clear Calc 178.76 Est GFR (MDRD) Af Amer 130 Est GFR (MDRD) Non-Af 108 BUN/Creatinine Ratio 13.2 Glucose 104 Calcium 8.8 Serum , Qual NEGATIVE Urine Color Yellow Urine Clarity Sl. Cloudy Urine pH 7.0 Ur Specific [place] 1.010 Urine Protein 30 H Urine Glucose (UA) 50 H Urine Ketones Negative Urine Occult Blood 250 H Urine Nitrite Negative Urine Bilirubin Negative Urine Urobilinogen Normal Ur Leukocyte Esterase Negative Urine RBC 5-10 SEEN Urine WBC 0 SEEN Ur Squamous Epith Cells 0-5 SEEN Urine Bacteria 1+ Urine Mucus 1+ Radiography Diagnostic Testing: Clinical Impression(s) from Imaging Studies Abdomen/Pelvis CT 07/30/24 14:42 IMPRESSION: 3.7 cm x 4 cm cyst in the right ovary. IUD is seen within the endometrium. The patient is status post cholecystectomy. Electronically Signed: Familia Lai MD at 15:07 EDT , Discharge Plan Triage Chief Complaint: Female C/O ED Provider: Laureen Rodriges Dx/Rx/DC Orders Clinical Impression: Ovarian cyst Instructions: Ovarian Cysts Prescriptions: New hydrocodone-acetaminophen 5-325 mg tablet 1 tab PO Q4H PRN PRN (Reason: Pain) 2 Days Qty: 10 0RF No Action Mirena 20 mcg/24 hours (7 yrs) 52 mg intrauterine device 1 insert intrauterine ONCE Rx Instructions: as a single dose oxycodone-acetaminophen [Percocet] 5-325 mg tablet 1 tab PO Q4H PRN albuterol sulfate [Ventolin HFA] 90 mcg/actuation HFA aerosol inhaler 1 puff INHALATION Q6H Qty: 8.5 1RF albuterol sulfate 2.5 mg /3 mL (0.083 %) solution for nebulization 2.5 mg inhalation Q4H PRN (Reason: shortness of breath or wheezing) Qty: 180 1RF Breo Ellipta 200-25 mcg/dose blister with device 1 inh INHALATION DAILY Qty: 60 5RF benzonatate 200 mg capsule 200 mg PO TID PRN (Reason: cough) Qty: 90 0RF (DME) Nebulizer machine See Rx Instructions .ROUTE .MEDSUPPLY Qty: 1 0RF Rx Instructions: As directed Primary Care Provider: Tia Parra Referrals: Britni Bell DO [Non-Staff] - 3-5 Days Print Language: [place] Disposition Disposition: Home, Self Care
[2024-07-30] MEDS: Ketorolac 30 MG/ML Syringe IV (14:11)
[2024-07-30 14:12] LABS: White Blood Cells 0 SEEN /hpf (0-5)
[2024-07-30 14:18] LABS: Absolute Lymphocyte Count 2.09 X10^3/uL (0.83-4.51); Absolute Neutrophil Count 7.2 X10^3/uL (2.0-7.7); Basophil# 0.08 X10^3/uL; Basophil% 0.8 % (0-1); Eosinophil# 0.19 X10^3/uL; Eosinophils% 1.9 % (0-5); Hematocrit 42.6 % (37-47); Hemoglobin 15.1 g/dL (12.0-15.0); Lymphocyte # 2.09 X10^3/ul (0.83-4.51); Lymphocyte % 20.7 % (19-41); Mean Corp Hgb Conc 35.4 g/dL (32-36); Mean Corpuscular Hgb 29.7 pg (27.0-32.0); Mean Corpuscular Volume 83.9 fL (81-99); Mean Platelet Vol. 10.7 fl (6.2-12.0); Monocyte# 0.58 X10^3/uL; Monocyte% 5.7 % (0-10); NRBC Flagged by Analyzer 0 % (0-5); Neutrophil # 7.15 X10^3/uL (2.7-7.7); Neutrophil % 70.7 % (47-70); Platelet Count 255 K/mm3 (150-450); RBC Distribution Width CV 12.7 % (11.6-14.6); RBC Distribution Width SD 39.1 fl (35.1-43.9); Red Blood Count 5.08 M/mm3 (4.2-5.4); White Blood Count 10.1 K/mm3 (4.4-11.0)
[2024-07-30 14:20] LABS: Color, Urine Yellow (Yellow); Glucose, Dipstick 50 mg/dl (Normal); Ketone-Dipstick Negative (Negative); Leukocyte Esterase-Dipstick Negative /ul (Negative); Nitrite-Dipstick Negative (Negative); Occult Blood-Urine 250 /ul (Negative); Protein-Dipstick 30 mg/dl (Negative); Urine Bilirubin Dipstick Negative (Negative); Urine Clarity Sl. Cloudy (Clear); Urine Urobilinogen Normal (Normal)
[2024-07-30 14:28] LABS: Mucous, Urine 1+ /hpf (<or=2+); Squamous Epithelial Cells - UA 0-5 SEEN /hpf (5-10)
[2024-07-30 14:29] LABS: Bacteria 1+ /hpf (None Seen); Red Blood Cells-Urine 5-10 SEEN /hpf (0-5)
[2024-07-30 14:30] LABS: Internal QC Validated? YES +Cl - CLEAR BKGD; Pregnancy, Serum, hCG Quali. NEGATIVE Negative
[2024-07-30 14:32] LABS: Anion Gap 6 (5-15); BUN 9 mg/dL (7-18); BUN/Creat Ratio 13.2 RATIO (10-20); Calcium,Total 8.8 mg/dL (8.5-10.1); Chloride 108 mmol/L (98-107); Creatinine, Serum 0.68 mg/dL (0.55-1.02); EST Glomerular Filtration Rate 108 mL/min (>60); Est Glom Filt Rate - Afr Amer 130 mL/min (>60); Estimated Creatinine Clearance 178.76 ml/min; Glucose 104 mg/dL (74-106); Potassium 3.1 mmol/L (3.5-5.1); Sodium Level 138 mmol/L (136-145)
--- NOTE | 2024-07-30 14:42 | CT_ITS ---
STUDY: CT ABDOMEN AND PELVIS WITHOUT CONTRAST REASON FOR EXAM: Female, 29 years old. Abdominal pain. RADIATION DOSAGE (If Supplied By Facility): CTDIvol = ( 24.18 ) mGy, DLP = ( 1480.07 ) mGycm TECHNIQUE: Transaxial images were obtained from the dome of the diaphragm to the symphysis pubis without oral contrast, and without intravenous contrast. Sagittal and coronal images were reconstructed. Individualized dose optimization techniques were used for this CT. COMPARISON: Comparison is made with prior study dated February 09, 2021. FINDINGS: The visualized lung bases are unremarkable. The visualized portions of the heart are within normal limits. Normal liver. There are surgical clips in the gallbladder fossa consistent with a prior cholecystectomy. Normal spleen. Normal pancreas. Normal bilateral adrenal glands. Normal right kidney. Normal left kidney. There is a small hiatal hernia. Normal small intestine. Normal colon. The appendix is visualized and appears normal. Normal abdominal aorta. Normal inferior vena cava. Normal retroperitoneum. Normal urinary bladder. There is a 3.7 cm by 4 cm cyst in the right ovary. IUD is seen within the endometrium. There is a small umbilical hernia containing fat. Normal osseous structures. CT/Abdomen/Pelvis without Cont IMPRESSION: 3.7 cm x 4 cm cyst in the right ovary. IUD is seen within the endometrium. The patient is status post cholecystectomy. Electronically Signed: Familia Lai MD at 15:07 EDT ,
[2024-07-30] MEDS: Morphine 4 MG/ML Syringe IV (15:33)
[2024-07-30] MEDS: Ondansetron 4 MG/2 ML Vial IV (15:33)
[2024-07-30 15:39] VITALS: BP 153/96; PULSE 88; RESP 18; TEMP 36.8; O2SAT 97
== END 2024-07-30 16:07 | disposition home or self-care (01) ==
PROVIDERS: Emergency Provider Emergency Medicine; PCP Nurse Practitioner Family; Visit Provider Emergency Medicine
DX: N83.201 Unspecified ovarian cyst, right side (principal); R11.2 Nausea with vomiting, unspecified; R31.9 Hematuria, unspecified; K52.9 Noninfective gastroenteritis and colitis, unspecified; K21.9 Gastro-esophageal reflux disease without esophagitis; G47.33 Obstructive sleep apnea (adult) (pediatric); Z97.5 Presence of (intrauterine) contraceptive device
CPT/HCPCS: 74176; 80048; 81001; 84703; 85025; 96374; 96375; 99283; A4216; J2405

== ENCOUNTER 2025-02-26 12:35 | Emergency (ER) | payer MEDICAID, SELFPAY ==
[2025-02-26 12:37] VITALS: BP 140/122; RESP 82; TEMP 36.8; O2SAT 100; BMI 53.1
--- NOTE | 2025-02-26 14:01 | EX.ED.DYSGE1 ---
HPI History of Present Illness Chief Complaint: Abd Pain Narrative Narrative: Patient is a 30-year-old female with past medical history of GERD, LUCY, asthma who presents to the emerged part with chief complaint of abdominal pain diarrhea and vomiting. She states that her symptoms started earlier today. Patient denies recent contacts. She rates her pain a 7 out of 10 in the right lower portion of her abdomen. Patient denies any history kidney stones. Patient states that she has had her gallbladder out and is passing gas. PFSH PFS Medical History Non-smoker COVID-19 affecting childbirth GERD (gastroesophageal reflux disease) Leukocytosis Environmental allergies Allergic rhinitis LUCY (obstructive sleep apnea) Home Medications ?Medication ?Instructions ?Recorded ?Last Taken ?Type levonorgestrel (Mirena) 1 insert intrauterine ONCE 11/26/21 Unknown History albuterol sulfate 2.5 mg/3 mL 2.5 mg (3 mL) inhalation Q4H PRN 12/21/22 Unknown Rx (0.083 %) solution for nebulization shortness of breath or wheezing #180 mL albuterol sulfate 90 mcg/actuation 1 puff inhalation Q6H #8.5 grams 12/21/22 Unknown Rx aerosol inhaler (Ventolin HFA) Nebulizer machine #1 ea 06/18/24 Unknown Rx fluticasone furoate 200 1 inh inhalation DAILY #60 ea 11/28/24 Unknown Rx mcg-vilanterol 25 mcg/dose inhalation powder (Breo Ellipta) dicyclomine 20 mg tablet 20 mg PO TID #30 tabs 02/26/25 Unknown Rx duloxetine 60 mg capsule,delayed 60 mg PO DAILY 02/26/25 Unknown History release losartan 50 mg-hydrochlorothiazide 1 tab PO DAILY 02/26/25 Unknown History 12.5 mg tablet ondansetron 4 mg disintegrating 4 mg PO Q6H PRN nausea and 02/26/25 Unknown Rx tablet vomiting #20 tabs Allergy/AdvReac Type Severity Reaction Status Date / Time Penicillins Allergy rash Verified 02/26/25 12:39 Family History Father CVA (cerebral vascular accident) Mother Intrinsic asthma Grandfather Diabetes COPD (chronic obstructive pulmonary disease) Surgical History S/P cholecystectomy History of tonsillectomy History of foot surgery Social History Smoking Status: Never smoker alcohol intake: never substance use type: does not use caffeine: Yes what type of physical activity do you participate in: none seatbelt use: always do you feel safe at home: Yes ROS ROS ED ROS Narrative Constitutional: Complains of fever at home of 100.1 denies lightheadedness or dizziness Cardiovascular: Denies chest pain Respiratory: Denies coughing denies any sputum production Abdomen: Complains of abdominal pain nausea vomiting diarrhea as noted above : Denies urinary symptoms Neurological: Denies any numbness, weakness, tingling Musculoskeletal: complains of some right flank pain Skin: Denies any rashes or lesions EXAM Physical Exam Narrative Exam Narrative: General: Patient lying in bed rest comfortably did not appear to be acute distress Head: Atraumatic, normocephalic Eyes: PERRL bilaterally, EOMI bilaterally, no conjunctival injection noted Neck: Soft, supple, trachea midline Cardiovascular: Regular rate and rhythm Respiratory: Clear to auscultation bilaterally Abdomen: Soft, nondistended, mild tenderness palpation the right lower quadrant no rebound or guarding on exam Extremities: +5/5 strength noted in the bilateral upper and lower extremities, radial pulses +2/4 in the bilateral extremities Neurological: Patient following commands knew that she was at [facility] year is 2024 Skin: Warm, dry, intact no rashes or lesions noted Const Vital Signs: 02/26/25 12:37 02/26/25 14:42 Temperature 98.3 F Temperature Source Oral Pulse Rate 83 Respiratory Rate 82 H 16 Blood Pressure 140/122 H 147/112 H Blood Pressure Mean 128 123 Pulse Ox 100 100 Oxygen Delivery Method Room Air Room Air MDM MDM MDM Narrative Medical decision making narrative: Patient is a 30-year-old female who presented to the emerged part with chief complaint of abdominal pain. On the differential diagnosis includes but not limited to UTI, pyelonephritis, appendicitis, bowel obstruction, viral gastroenteritis. Once workup is obtained reviewed she will be reevaluated. Patient be given IV fluids and Bentyl. Patient's CBC was reviewed showed no evidence leukocytosis white blood count was noted to be 9.4, hemoglobin 16.1, platelet count was noted to be 286. Patient sodium was notably 136, potassium was noted to be 4, creatinine was 0.67. Patient's AST and ALT were 16 and 21 respectively with a normal total bilirubin of 0.32. Patient lipase normal at 33, test negative. Patient urinalysis reviewed showed negative nitrites negative leukocyte esterase no concern for infection. Patient CT abdomen pelvis with IV contrast was reviewed showed status postcholecystectomy. 4 cm x 4.2 cm right ovarian cyst. IUD seen within the uterus. On reevaluation patient is feeling better would like to go home at this point time. Patient be given Bentyl and Zofran. She likely has viral gastroenteritis that is causing her symptoms. I discussed this with her and encouraged her to continue supportive care with hydration and starting with a bland diet and advance as tolerated. She was encouraged to follow-up with her primary care physician outpatient and return with worsening symptoms or concerns. She is agreeable this plan all question concerns answered she was discharged home in stable condition. Patient significant other at bedside is also agreeable this plan. He Lab Data Labs: Laboratory Results - last 24 hr 02/26/25 02/26/25 14:00 14:02 WBC 9.4 RBC 5.52 H Hgb 16.1 H Hct 46.6 MCV 84.4 MCH 29.2 MCHC 34.5 RDW Std Deviation 37.8 RDW Coeff of [place] 12.3 Plt Count 286 MPV 10.2 Immature Gran % (Auto) 0.200 Neut % (Auto) 71.4 H Lymph % (Auto) 18.8 L [place] % (Auto) 5.7 Eos % (Auto) 3.2 Baso % (Auto) 0.7 Absolute Neuts (auto) 6.7 Absolute Lymphs (auto) 1.76 Nucleated RBC % 0 Sodium 136 Potassium 4.0 Chloride 103 Carbon Dioxide 20.6 L Anion Gap 12 BUN 11 Creatinine 0.67 L Estim Creat Clear Calc 183.19 Est GFR (MDRD) Non-Af 120 BUN/Creatinine Ratio 16.1 Glucose 100 H Calcium 9.3 Total Bilirubin 0.32 AST 16 ALT 21 Alkaline Phosphatase 103 Total Protein 7.5 Albumin 4.3 Globulin 3.2 Albumin/Globulin Ratio 1.3 Lipase 33 Serum , Qual NEGATIVE Urine Color Yellow Urine Clarity Clear Urine pH 6.0 Ur Specific [place] 1.020 Urine Protein 15 H Urine Glucose (UA) Normal Urine Ketones Negative Urine Occult Blood 10 H Urine Nitrite Negative Urine Bilirubin Negative Urine Urobilinogen Normal Ur Leukocyte Esterase Negative Urine RBC 0-5 SEEN Urine WBC 0-5 SEEN Ur Squamous Epith Cells 0 SEEN Urine Bacteria 0 SEEN Urine Mucus 0 SEEN Radiography Diagnostic Testing: Clinical Impression(s) from Imaging Studies Abdomen/Pelvis CT 02/26/25 14:56 IMPRESSION: Status post cholecystectomy. 4 cm x 4.2 cm right ovarian cyst. IUD seen within the uterus. OVERALL FINAL ASSESSMENT: . LI-RADS is not meant to be used in patients <18 years or patients with cirrhosis due to congenital hepatic fibrosis or due to vascular disorders, because these patients have a lower chance of developing HCC. Reading Location: [place] [address] Discharge Plan Triage Chief Complaint: Abd Pain Other Complaint: Flank Pain ED Provider: Nino Sánchez Dx/Rx/DC Orders Clinical Impression: Abdominal pain Prescriptions: New dicyclomine 20 mg tablet 20 mg PO TID Qty: 30 0RF ondansetron 4 mg tablet,disintegrating 4 mg PO Q6H PRN (Reason: nausea and vomiting) Qty: 20 0RF No Action Mirena 20 mcg/24 hours (7 yrs) 52 mg intrauterine device 1 insert intrauterine ONCE Rx Instructions: as a single dose albuterol sulfate [Ventolin HFA] 90 mcg/actuation HFA aerosol inhaler 1 puff INHALATION Q6H Qty: 8.5 1RF albuterol sulfate 2.5 mg /3 mL (0.083 %) solution for nebulization 2.5 mg inhalation Q4H PRN (Reason: shortness of breath or wheezing) Qty: 180 1RF losartan-hydrochlorothiazide 50-12.5 mg tablet 1 tab PO DAILY duloxetine 60 mg capsule,delayed release(DR/EC) 60 mg PO DAILY (DME) Nebulizer machine See Rx Instructions .ROUTE .MEDSUPPLY Qty: 1 0RF Rx Instructions: As directed Breo Ellipta 200-25 mcg/dose blister with device 1 inh INHALATION DAILY Qty: 60 0RF Primary Care Provider: Tia Parra Referrals: Tia Parra, STORE ADMINISTRATOR-C [Primary Care Provider] - Activity Restrictions/Additional Instructions: Your blood work here today did not show any acute findings. Your CT of your abdomen did not show any acute findings. Use prescriptions as prescribed and continue supportive care with oral hydration with water, Gatorade, Pedialyte etc. Start with a bland diet and advance as tolerated. Follow-up with your doctor in the outpatient setting. Return for worsening symptoms or any other concerns Print Language: [place] Disposition Disposition: Home, Self Care
[2025-02-26 14:06] LABS: Bacteria 0 SEEN /hpf (None Seen); Mucous, Urine 0 SEEN /hpf (<or=2+); Squamous Epithelial Cells - UA 0 SEEN /hpf (5-10)
[2025-02-26 14:07] LABS: Absolute Lymphocyte Count 1.76 X10^3/uL (0.83-4.51); Absolute Neutrophil Count 6.7 X10^3/uL (2.0-7.7); Basophil# 0.07 X10^3/uL; Basophil% 0.7 % (0-1); Eosinophils% 3.2 % (0-5); Hematocrit 46.6 % (37-47); Hemoglobin 16.1 g/dL (12.0-15.0); Lymphocyte # 1.76 X10^3/ul (0.83-4.51); Lymphocyte % 18.8 % (19-41); Mean Corp Hgb Conc 34.5 g/dL (32-36); Mean Corpuscular Hgb 29.2 pg (27.0-32.0); Mean Corpuscular Volume 84.4 fL (81-99); Mean Platelet Vol. 10.2 fl (6.2-12.0); Monocyte# 0.53 X10^3/uL; Monocyte% 5.7 % (0-10); NRBC Flagged by Analyzer 0 % (0-5); Neutrophil # 6.68 X10^3/uL (2.7-7.7); Neutrophil % 71.4 % (47-70); Platelet Count 286 K/mm3 (150-450); RBC Distribution Width CV 12.3 % (11.6-14.6); RBC Distribution Width SD 37.8 fl (35.1-43.9); Red Blood Count 5.52 M/mm3 (4.2-5.4); White Blood Count 9.4 K/mm3 (4.4-11.0)
[2025-02-26 14:08] LABS: Color, Urine Yellow (Yellow); Glucose, Dipstick Normal (Normal); Ketone-Dipstick Negative (Negative); Leukocyte Esterase-Dipstick Negative /ul (Negative); Nitrite-Dipstick Negative (Negative); Occult Blood-Urine 10 /ul (Negative); Protein-Dipstick 15 mg/dl (Negative); Urine Bilirubin Dipstick Negative (Negative); Urine Clarity Clear (Clear); Urine Urobilinogen Normal (Normal)
[2025-02-26] MEDS: 0.9% Normal Saline (1000mL) 1,000 ML 999 ML IV (14:11)
[2025-02-26] MEDS: Dicyclomine 10 MG Capsule 20 MG PO (14:11)
[2025-02-26 14:19] LABS: Internal QC Validated? YES +Cl - CLEAR BKGD; Pregnancy, Serum, hCG Quali. NEGATIVE Negative
[2025-02-26 14:20] LABS: Record Kit Lot#, Serum Preg. 947241
[2025-02-26 14:40] LABS: ALB/GLOB Ratio 1.3 RATIO (0.9-2.4); AST(SGOT) 16 U/L (<=31); Alanine Aminotransfer ALT/SGPT 21 U/L (<=34); Albumin, Serum 4.3 g/dL (3.5-5.0); Alkaline Phosphatase 103 U/L (35-104); Anion Gap 12 (5-15); BUN 11 mg/dL (4-19); BUN/Creat Ratio 16.1 RATIO (10-20); Calcium,Total 9.3 mg/dL (7.6-11.0); Carbon Dioxide 20.6 mmol/L (21.0-32.0); Chloride 103 mmol/L (98-108); Creatinine, Serum 0.67 mg/dL (0.70-1.20); EST Glomerular Filtration Rate 120 (>60); Estimated Creatinine Clearance 183.19 ml/min (50-250); Globulin 3.2 g/dL (2.2-4.2); Glucose 100 mg/dL (70-99); Lipase 33 U/L (13-75); Protein, Total 7.5 g/dL (5.9-8.4); Sodium Level 136 mmol/L (133-145); Total Bilirubin 0.32 mg/dL (0.00-1.30)
[2025-02-26 14:42] VITALS: BP 147/112; PULSE 83; RESP 16; O2SAT 100
[2025-02-26 14:50] LABS: Red Blood Cells-Urine 0-5 SEEN /hpf (0-5)
[2025-02-26 14:51] LABS: White Blood Cells 0-5 SEEN /hpf (0-5)
--- NOTE | 2025-02-26 14:56 | CT_ITS ---
PROCEDURE: ABDOMEN/PELVIS W IV CONT ONLY 02/26/2025 REASON FOR EXAM: RLQ ABD PAIN Left lower quadrant and right flank pain. TECHNIQUE: Abdomen and pelvis CT with intravenous contrast. Coronal and Sagittal reconstruction series were provided. PATIENT PREPARATION: Per protocol ORAL CONTRAST TYPE: None. CONTRAST: Isovue-300 VOLUME: 100 mL One or more dose reduction techniques were used (e.g., Automated exposure control, adjustment of the mA and/or kV according to patient size, use of iterative reconstruction technique. RADIATION DOSE SUMMARY: CTDlvol: 19 mGy DLP: 1498.81 mGycm COMPARISON: None FINDINGS: Lung bases: Unremarkable Liver: Normal size. No mass. Gallbladder: Surgically absent. Spleen: Normal size. Pancreas: Normal size without evidence of mass surrounding inflammation or ductal dilation. Adrenals: Unremarkable Kidneys: Normal renal sizes. No hydronephrosis. Bladder: Unremarkable Reproductive Organs: There is a 4 cm x 4.2 cm right ovarian cyst. IUD is seen within the uterus. Small follicles are seen in the left ovary. Bowel: Unremarkable. Appendix: The appendix is not identified. There is no inflammatory process identified in the right lower quadrant to suggest appendicitis. Lymph nodes: Unremarkable. Vasculature: The abdominal aorta and IVC are normal. Peritoneum / Retroperitoneum: Unremarkable Bones: Unremarkable. CT/Abdomen/Pelvis W IV Cont ONLY IMPRESSION: Status post cholecystectomy. 4 cm x 4.2 cm right ovarian cyst. IUD seen within the uterus. OVERALL FINAL ASSESSMENT: . LI-RADS is not meant to be used in patients <18 years or patients with cirrhosi s due to congenital hepatic fibrosis or due to vascular disorders, because these patients have a lower chance of developing HC C. Reading Location: [place] [id number]
[2025-02-26 15:56] VITALS: BP 151/94; PULSE 81; RESP 16; TEMP 36.3; O2SAT 100
== END 2025-02-26 16:01 | disposition home or self-care (01) ==
PROVIDERS: Emergency Provider Emergency Medicine; PCP Nurse Practitioner Family; Visit Provider Emergency Medicine
DX: R10.31 Right lower quadrant pain (principal); K21.9 Gastro-esophageal reflux disease without esophagitis; J45.909 Unspecified asthma, uncomplicated; R19.7 Diarrhea, unspecified; R11.10 Vomiting, unspecified; G47.33 Obstructive sleep apnea (adult) (pediatric); Z97.5 Presence of (intrauterine) contraceptive device; Z79.899 Other long term (current) drug therapy
CPT/HCPCS: 74177; 80053; 81001; 83690; 84703; 85025; 96360; 96361; 99284; Q9967; A4216

== ENCOUNTER → 2025-03-22 | Outpatient (CLI) | payer MEDICAID, SELFPAY ==
--- NOTE | 2025-03-22 15:24 | US_ITS ---
EXAM: US Retroperitoneal Limited, Renal CLINICAL INDICATION: RIGHT FLANK PAIN TECHNIQUE: Real-time limited ultrasound of the retroperitoneum with image documentation. COMPARISON: No relevant prior studies available. FINDINGS: RIGHT KIDNEY: Unremarkable. No stones. No hydronephrosis. The right kidney measures 13.0 x 5.5 x 4.9 cm. LEFT KIDNEY: Unremarkable. No stones. No hydronephrosis. The left kidney measures 12.1 x 5.7 x 5.9 cm. BLADDER: Normal-appearing urinary bladder. Prevoid volume 142 cc. Postvoid volume 8 cc. US/Kidney and Bladder IMPRESSION: No acute findings in the retroperitoneum. Reading Location: [id number]
[2025-03-22 17:23] LABS: CRP 9.05 mg/L (0.0-3.0)
[2025-03-27 09:09] LABS: Anti-Centromere B Ab <0.2 AI (0.0-0.9); Anti-Chromatin <0.2 AI (0.0-0.9); Anti-Jo <0.2 AI (0.0-0.9); Anti-Scleroderma-70 AB <0.2 AI (0.0-0.9); Anti-dsDNA Ab <1 IU/mL (0-9); Beef <0.10 kU/L (Class 0); Chocolate <0.10 kU/L (Class 0); Codfish <0.10 kU/L (Class 0); Corn <0.10 kU/L (Class 0); Egg, Whole 0.11 kU/L (Class 0/I); Milk (Cow) 0.18 kU/L (Class 0/I); Mussels <0.10 kU/L (Class 0); Peanut <0.10 kU/L (Class 0); Pork <0.10 kU/L (Class 0); RNP Ab 0.2 AI (0.0-0.9); SJOGREN'S Anti-SS-A test < 0.2 AI (0.0-0.9); SJOGREN'S Anti-SS-B test < 0.2 AI (0.0-0.9); Salmon <0.10 kU/L (Class 0); Shrimp <0.10 kU/L (Class 0); Smith Ab <0.2 AI (0.0-0.9); Soybean <0.10 kU/L (Class 0); Tuna <0.10 kU/L (Class 0); Wheat <0.10 kU/L (Class 0)
[2025-03-27 11:09] LABS: ACCA 4 units (0-90); ALCA 15 units (0-60); AMCA 8 units (0-100); Endomysial Antibody IgA Negative (Negative); Immunoglobulin A 107 mg/dL (87-352); Immunoglobulin E 40 IU/mL (6-495); Immunoglobulin G 958 mg/dL (586-1602); Immunoglobulin M 153 mg/dL (26-217); gASCA 23 units (0-50); t-Transglutaminase IgA <2 U/mL (0-3)
== END | disposition home or self-care (01) ==
PROVIDERS: PCP Nurse Practitioner Family; Referring Provider Nurse Practitioner Family; Visit Provider Nurse Practitioner Family
DX: R10.9 Unspecified abdominal pain (principal); R31.9 Hematuria, unspecified; R11.0 Nausea; K21.9 Gastro-esophageal reflux disease without esophagitis; R19.7 Diarrhea, unspecified
CPT/HCPCS: 36415; 76770; 82784; 82785; 83516; 86003; 86005; 86036; 86140; 86225; 86235; 86255; 86671

== ENCOUNTER → 2025-03-23 | Outpatient (CLI) | payer MEDICAID, SELFPAY ==
--- NOTE | 2025-03-23 10:17 | US_ITS ---
PROCEDURE: ABDOMEN COMPLETE 03/23/2025 REASON FOR EXAM: RIGHT FLANK PAIN TECHNIQUE: ABDOMEN COMPLETE FINDINGS: Liver: Liver echogenicity is within normal limits. No intrahepatic biliary ductal dilatation. Normal hepatopetal flow in the portal vein. Gallbladder: Status post cholecystectomy Common bile duct: 6 mm. Pancreas: Normal as seen. Tail is not seen well Kidneys: The right kidney measures 13.3 cm L left 5.2 cm AP x 4.4 cm T. normal size, cortical thickness.. No calculi. The left kidney measures 12.2 cm 6.1 cm AP x 5.8 cm normal cortical thickness calculi. Spleen: Normal limits. Spleen length 10.9 cm.. Aorta: Normal caliber IVC: Remarkable. Peritoneal Findings: No peritoneal free fluid other perineal abnormality identified. US/Abdomen Complete IMPRESSION: Unremarkable ultrasound abdomen. Status post cholecystectomy. Reading [facility]
--- OUTSIDE RECORDS SUMMARY | 2025-03-23 10:17 | XMS RPT_ITS | CCD ---
Author Organization [facility] Care Team Providers Care Machine Driller Name Role Phone ALESIA WALKER Unavailable Unavailable Petra Morales Primary Care Provider [phone] Dr. Britni Bell Primary Care Provider [phone] Liane MACHINE HAMPER MAKER, MACHINE HAMPER MAKER-C Gianna Attending Provider Linae MACHINE HAMPER MAKER, MACHINE HAMPER MAKER-C Gianna Referring Provider Petra Morales Primary Care Provider [phone] RAYMOND BRAMBILA Attending Unavailable RAYMOND BRAMBILA Referring Unavailable PETRA MORALES Primary Care Unavailabl e Petra Morales Primary Care Provider Tia Núñez CNP Primary Care Provider [phone] Unavailable Primary Care Provider UnavailTia Richardson MD Primary Care Provider YANET CAROLINA Attending Unavailable YANET CAROLINA Referring Unavailable YANET CAROLINA Attending Unavailable YANET CAROLINA Referring Unavailable YANET CAROLINA Admitting Unavailable UNGERER, TIA Referring Unavailable YANET CAROLINA Attending Unavailable UNGERER, TIA Primary Care Unavailable SELF, SELF Referring Unavailable UNGERER, TIA Primary Care Unavailable SELF, SELF Referring Unavailable MIAH CENTENO Attending Unavailable UNGERER, TIA Primary Care Unavailable YANET CAROLINA Attending Unavailable YANET CAROLINA Referring Unavailable SONU GRIFFIN Attending Unavail able SELF, SELF Referring Unavailable UNGERER, TIA Primary Care Unavailable ELENA XIE Attending Unavailable UNGERER, TIA D Primary Care Unavailable SCHMIDT, TIFFANIE Attending Unavailable UNGERER, TIA D Primary Care Unavailable ROXANA, TIFFANIE Referring Unavailable UNGERER, TIA D Primary Care Unavailable SCHMIDT, TIFFANIE Referring Unavailable ARAM JORDAN MD Primary Care Provider VIET MARIA MD Emergency Provider VANESA SOLANO MD Primary Care Provider [phone] MARY VAZQUEZ MD Emergency Provider Ungerer MACHINE HAMPER MAKER-C, Tia Primary Care Provider Dr. Nino Sánchez DO Emergency Provider MARY VAZQUEZ Attending Unavailable VANESA SOLANO Primary Care Unavailable ARAM JORDAN Primary Care Unavailable VIET MARIA Attending Unavailable SYLVIA WHITTAKER Primary Care Unavailable SYLVIA WHITTAKER Attending Unavailable SYLVIA WHITTAKER Referring Unavailable Dr. Nino Sánchez DO Attending Provider Ungerer MACHINE HAMPER MAKER-C, Tia Attending Provider [phone] Ungerer MACHINE HAMPER MAKER-C, Tia Referring Provider LUIS ANTONIO MCDONNELL Attending Unavailable LUIS ANTONIO MCDONNELL Admitting Unavailable LUIS ANTONIO MCDONNELL Primary Care Unavailable UNGERER, TIA MACHINE HAMPER MAKER Consulting Unavailable UNGERER, TIA MACHINE HAMPER MAKER Referring Unavailable KENDRICK VINESOTHY Attending Unavailable KAMILA VINES DO Admitting Unavailable KAMILA VINES DO Primary Care Unavailable PROVIDER, UNKNOWN Consulting Unavailable MIKO VARMA DO Attending Unavailable MIKO VARMA DO Admitting Unavailable UNGERER, TIA MACHINE HAMPER MAKER Consulting Unavailable UNGERER, TIA MACHINE HAMPER MAKER Referring Unavailable MIKO VARMA DO Primary Care Unavailable PROVIDER, UNKNOWN Consulting Unavailable GREG NOEL MD Attending Unavailable GREG NOEL MD Admitting Unavailable UNGERER, TIA MACHINE HAMPER MAKER Consulting Unavailable GREG NOEL MD Primary Care Unavailable PROVIDER, UNKNOWN Consulting Unavailable NEVA ALAMO DO Primary Care Unavailable NEVA ALAMO DO Attending Unavailable NEVA ALAMO DO Admitting Unavailable LUIS ANTONIO MCDONNELL Attending Unavailable LUIS ANTONIO MCDONNELL Admitting Unavailable LUIS ANTONIO MCDONNELL Primary Care Unavailable NEVA ALAMO DO Primary Care Unavailable NEVA ALAMO DO Attending Unavailable NEVA ALAMO DO Admitting Unavailable UNGERER, TIA MACHINE HAMPER MAKER Referring Unavailable UNGERER, TIA MACHINE HAMPER MAKER Consulting Unavailable PROVIDER, UNKNOWN Consulting Unavailable UNGERER, TIA MACHINE HAMPER MAKER Consulting Unavailable OSEAS, RAYMOND T Attending Unavailable OSEAS, RAYMOND T Admitting Unavailable OSEAS, RAYMOND T Primary Care Unavailable PROVIDER, UNKNOWN Consulting Unavailable OSEAS, RAYMOND T Primary Care Unavailable UNGERER, TIA MACHINE HAMPER MAKER Consulting Unavailable OSEAS, RAYMOND T Attending Unavailable OSEAS, RAYMOND T Admitting Unavailable PROVIDER, UNKNOWN Consulting Unavailable UNGERER, TIA MACHINE HAMPER MAKER Attending Unavailable UNGERER, TIA MACHINE HAMPER MAKER Admitting Unavailable UNGERER, TIA MACHINE HAMPER MAKER Primary Care Unavailable UNGERER, TIA MACHINE HAMPER MAKER Consulting Unavailable PROVIDER, UNKNOWN Consulting Unavailable MOI MADRIGAL MD Attending Unavailable MOI MADRIGAL MD Admitting Unavailable MOI MADRIGAL MD Primary Care Unavailable TIA, UNGERER Consulting Unavailable PROVIDER, UNKNOWN Consulting Unavailable UNGERER, TIA MACHINE HAMPER MAKER Referring Unavailable UNGERER, TIA MACHINE HAMPER MAKER Consulting Unavailable CON TORRES Attending Unavailable MELISSA, CON Saldana Admitting Unavailable CON TORRES Primary Care Unavailable PROVIDER, UNKNOWN Consulting Unavailable NEVA ALAMO DO Attending Unavailable DIDUR, NEVA DO Admitting Unavailable UNGERER, TIA MACHINE HAMPER MAKER Referring Unavailable DIDURNEVA DO Primary Care Unavailable UNGERER, TIA MACHINE HAMPER MAKER Consulting Unavailable PROVIDER, UNKNOWN Consulting Unavailable Ungerer, Tia Primary Care Unavailable Ungerer, Tia Attending Unavailable Ungerer, Tia Referring Unavailable Ungerer, Tia Primary Care Unavailable Ungerer, Tia Attending Unavailable Ungerer, Tia Referring Unavailable Ungerer, Tia Primary Care Unavailable Ungerer, Tia Attending Unavailable Ungerer, Tia Referring Unavailable Ungerer, Tia Primary Care Unavailable Ungerer, Tia Attending Unavailable Ungerer, Tia Referring Unavailable Ungerer, Tia Primary Care Unavailable Ungur, Remus Attending Unavailable Ungerer, Tia Primary Care Unavailable Nino Sánchez Attending Unavailable Jocelyn Tracey Attending Provider Allergies Allergy Classification Reported Allergen(s) Allergy Type Date of Onset Reaction(s) Facility (5 sources) Penicillins; Translations: [PENICILLINS] Drug Allergy 1 [facility] (18 sources) Penicillins Drug Allergy 1 [facility] (11 sources) Penicillins Propensity to adverse reactions to drug 1 Hives, Itching, Rash [facility] Work Phone: (4 sources) Penicillins Allergy to substance 5 rash [facility] (2 sources) Penicillins Drug allergy (disorder) 5 [facility] (1 source) Amoxicillin Drug Allergy [facility] (1 source) Penicillins Drug allergy (disorder) [facility] Medications Current Medications Medication Drug Class(es) Dates Sig (Normalized) Sig (Original) 8 hr acetaminophen 650 mg extended release oral tablet (9 sources) Start: 06-28-2023 take 1 tablet by mouth every eight hours acetaminophen 650 MG Tab CR Indications: Right hip impingement syndrome Take 1 tablet by mouth every 8 hours. 60 tablet 1 06/28/2023 Active Start: 06-28-2023 End: 06-28-2023 Acetaminophen (TYLENOL) tabl et 975 mg albuterol 0.83 mg/ml inhalation solution (20 sources) beta2-Adrenergic Agonist Start: 03-15-2025 Albut kelley Sulfate (Ventolin Hfa) 90 mcg/actuation HFA aerosol inhaler Active 2 NMA INHALATION Q4H as needed for shortness of breath or wheezing 8.March 15, 2025 2:27pm Start: 05-27-2021 End: 03-15-2025 take 2.5 mg by inhalation every four hours as needed for wheezing Albuterol Sulfate 2.5 mg /3 mL (0.083 %) solution for nebulization Active 2.5 mg INHALATION Q4H as needed for shortness of breath or wheezing 180 March 15, 2025 2:28pm Start: 07-23-2019 End: 03-15-2025 Albuterol Sulfate (Ventolin Hfa) 90 mcg/actuation HFA aerosol inhaler Discontinued 1 NMA INHALATION EVERY 6 HOURS 8.5 December 21, 2022 8:05am March 15, 2025 2:33pm Start: 07-23-2019 End: 05-27-2021 take 1 puff(s) by inhalation every six hours Albuterol Sulfate (Ventolin Hfa) 90 mcg/actuation HFA aerosol inhaler Active 1 PUFF INHALATION EVERY 6 HOURS 8.5 May 27, 2021 7:57am albuterol 0.63mg /3mL Neb Soltasia ALBUTEROL INHALA TION Inhale as instructed. 0 Active Comment on above: Inhale as instructed . apixaban 2.5 mg oral tablet (8 sources) Factor Xa Inhibitor Start: 3 take 1 tablet by mouth twice daily apixaban 2.5 MG tablet Indications: Right hip impingement syndrome Take 1 tablet by mouth 2 times daily. 42 tablet 0 06/28/2023 Active cephalexin 500 mg oral capsule (2 sources) Cephalosporin Antibacterial Start: take 1 capsule by mouth twice daily Cephalexin (Keflex 500mg) 500 MG Capsule Active 500 MG PO Two Times A Day February 03, 2025 12:00am Start: 02-03-2025 take 1 capsule by mo ut three times daily Cephalexin (Keflex 500mg) 500 MG Capsule Active 500 MG PO Three Times A Day February 03, 2025 12:00am cholestyramine resin 4000 mg powder for oral suspension (1 source) Bile Acid Sequestrant Start: 12-29-2021 End: 01-28-2022 take 1 dose by mouth three times daily at mealtime cholestyramine (QUESTRAN) 4 gram packet Take 1 Packet by mouth three times daily with meals. 90 Packet 0 12/29/2021 01/28/2022 Active Comment on above: Take 1 Packet by gerber th three times daily with meals. colesevelam hydrochloride 625 mg oral tablet (1 source) Bile Acid Sequestrant Start: 03-22-2025 take 3 tablets by mouth twice daily Colesevelam (Welchol) 625 mg tablet Active 1875 mg PO TWICE A DAY 180 March 22, 2025 12:00am April 20, 2025 12:00am 12 hr dextromethorphan polistirex 6 mg/ml extended release suspension (1 source) Uncompetitive J-osajli-Q-aspartat e Receptor Antagonist, Sigma-1 Agonist Start: 03-15-2025 take 1 mL by mouth every twelve hours as needed for cough Dextromethorphan Polistirex (Delsym 12 Hour) 30 mg/5 mL suspension,extended rel 12 hr Active 10 mL PO Q12H as needed for cough 89 March 15, 2025 12:00am dicyclomine hydrochloride 20 mg oral tablet (6 sources) Anticholinergic Start: 02-26-2025 End: 03-08-2025 take 1 tablet by mouth three times daily as needed Dicyclomine 20 mg tablet Active 20 mg PO THREE TIMES A DAY as needed for abdominal cramping March 08, 2025 3:55pm DISABILITY PLACARD (9 sources) Start: 05-27-2023 End: 09-01-2023 DISABILITY PLACARD Disability placard end date 09/01/23 1 Each 0 05/27/2023 09/01/2023 Active DULoxetine 60 mg delayed release oral capsule (20 sources) Serotonin and Norepinephrine Reuptake Inhibitor Start: 02-26-2025 End: 03-08-2025 take 1 capsule by mouth once daily Duloxetine 60 mg capsule,delayed release(DR/EC) Active 60 mg PO DAILY March 08, 2025 3:52pm Start: 03-29-2023 take 1 capsule by mo [facility] once daily DULoxetine [address] Particles capsule DR Take 1 capsule by mouth daily. 0 03/29/2023 Active Comment on above: Take 60 mg by mouth once daily. famotidine 40 mg oral tablet (1 source) Histamine-2 Receptor Antagonist Start: take 1 tablet by mouth at bedtime Famotidine 40 mg tablet Active 40 mg PO AT BEDTIME March 22, 2025 12:00am Fluticasone Furoate-Vilanterol (20 sources) Corticosteroid, beta2-Adrenergic Agonist Start: Fluticasone Furoate-Vilanterol (Breo Ellipta) 200-25 mcg/dose blister with device Active 1 NMA INHALATION DAILY 60 November 28, 2024 1:07pm Start: 12-21-2022 End: 11-28-2024 Fluticasone Furoate-Vilanter ol (Breo Ellipta) 200-25 mcg/dose blister with device Discontinued 1 NMA INHALATION DAILY December 21, 2022 8:05am November 28, 2024 1:07pm Start: 11-30-2022 End: 12-21-2022 Fluticasone Furoate-Vilanter ol (Breo Ellipta) 200-25 mcg/dose blister with device Discontinued 1 NMA INHALATION DAILY 60 November 30, 2022 3:44pm December 21, 2022 8:06am Start: 11-26-2021 End: 11-30-2022 Fluticasone Furoate-Vilanter ol (Breo Ellipta) 200-25 mcg/dose blister with device Discontinued 1 NMA INHALATION DAILY 60 November 26, 2021 10:34am November 30, 2022 3:45pm Start: 11-26-2021 Fluticasone Fu roate-Vilanterol (Breo Ellipta) 200-25 mcg/dose blister with device Active 1 INH INHALATION DAILY 60 November 26, 2021 10:34am Start: 10-02-2021 take 1 puff(s) by mo uth once daily BREO ELLIPTA 200-25 mcg/dose inhaler INHALE 1 PUFF BY MOUTH ONCE DAILY 0 10/02/2021 Active Start: 05-27-2021 End: 11-26-2021 Fluticasone Furoate-Vilanter ol (Breo Ellipta) 200-25 mcg/dose blister with device Discontinued 1 NMA INHALATION DAILY 60 May 27, 2021 7:57am November 26, 2021 10:34am Start: 05-27-2021 End: 11-26-2021 Fluticasone Furoate-Vilanter ol (Breo Ellipta) 200-25 mcg/dose blister with device Discontinued 1 INH INHALATION DAILY 60 May 27, 2021 7:57am November 26, 2021 10:34am Start: 03-20-2020 End: 05-27-2021 Fluticasone Furoate-Vilanter ol (Breo Ellipta) 200-25 mcg/dose blister with device Discontinued 1 NMA INHALATION DAILY 60 March 20, 2020 1:10pm May 27, 2021 7:58am Start: 03-20-2020 End: 05-27-2021 Fluticasone Furoate-Vilanter ol (Breo Ellipta) 200-25 mcg/dose blister with device Discontinued 1 INH INHALATION DAILY 60 March 20, 2020 1:10pm May 27, 2021 7:58am Start: 07-24-2019 End: 03-20-2020 Fluticasone Furoate-Vilanter ol (Breo Ellipta) 200-25 mcg/dose blister with device Discontinued 1 NMA INHALATION DAILY July 24, 2019 12:00am March 20, 2020 1:10pm Start: 07-24-2019 End: 03-20-2020 Fluticasone Furoate-Vilanter ol (Breo Ellipta) 200-25 mcg/dose blister with device Discontinued 1 INH INHALATION DAILY July 24, 2019 12:00am March 20, 2020 1:10pm Comment on above: INHALE 1 PUFF BY GERBER TH ONCE DAILY hydroCHLOROthiazide 12.5 mg / losartan potassium 50 mg oral tablet (17 sources) Thiazide Diuretic, Angiotensin 2 Receptor Fernie Start: 02-26-2025 End: 03-08-2025 Losartan-Hydrochl orothiazide 50-12.5 mg tablet Active 1 {tbl} PO DAILY 90 March 08, 2025 3:53pm Start: 04-27-2023 take 1 tablet by gerber th once daily losartan-hydrochlorothiazide 50-12.5 MG tablet Take 1 tablet by mouth daily. 0 04/27/2023 Active ketorolac tromethamine 10 mg oral tablet (7 sources) Nonsteroidal Anti-inflammatory Drug, Cyclooxygenase Inhibitor Start: 06-29-2023 End: 07-02-2023 take 1 tablet by mouth every six hours as needed for pain ketorolac 10 MG tablet Indications: S/P hip arthroscopy Take 1 tablet by mouth every 6 hours as needed for Moderate Pain or Severe Pain for up to 3 days. Max of 40mg/day. Max of 5 days. Stop all other NSAIDs at this time. 12 tablet 0 06/29/2023 Active levonorgestrel 0.789071 mg/hr intrauterine system (20 sources) Progestin, Progestin-containing Intrauterine Device Start: 11-26-2021 Levonorgestrel (Mirena) 20 mcg/24 hours (7 yrs) 52 mg intrauterine device Active 1 INSERT INTRA-UTER ONCE November 26, 2021 1:00am as a single dose Start: 11-11-2021 End: 11-09-2028 Levonorgestrel (Mirena) 20 m cg/24 hours (7 yrs) 52 mg intrauterine device Active 1 NMA INTRA-UTER ONCE November 26, 2021 1:00am as a single dose Start: 11-11-2021 End: 11-09-2028 Levonorgestrel 20 MCG/DAY 1 Intra Uterine Device by Intrauterine route. 0 11/11/2021 11/09/2028 Active Comment on above: 1 Each by INTRAUTERI NE route as directed. meloxicam 15 mg oral tablet (20 sources) Nonsteroidal Anti-inflammatory Drug Start: take 1 tablet by mouth once daily Meloxicam 15 MG tablet Indications: Right hip impingement syndrome Take 1 tablet by mouth daily. 30 tablet 2 06/28/2023 Active Start: 03-26-2022 End: 10-28-2022 take 1 tablet by mouth once daily at mealtime meloxicam (MOBIC) 15 mg tablet Take 1 tablet by mouth once daily. With food. 30 tablet 1 03/26/2022 10/28/2022 Discontinued Comment on above: Take 1 tablet by gerber th once daily. With food. naproxen 500 mg oral tablet (3 sources) Nonsteroidal Anti-inflammatory Drug Start: 03-14-2025 take 1 tablet by mouth twice daily at mealtime for pain Naproxen 500 mg tablet Active 500 mg PO TWICE A DAY as needed for pain March 14, 2025 12:00am Take with food Start: 02-03-2025 take 1 tablet by gerber th twice daily as needed for pain Naproxen (Naprosyn) 500 MG Tablet Active 500 MG PO Two Times A Day as needed for pain February 03, 2025 12:00am Nebulizer machine (4 sources) Start: 06-18-2024 Nebulizer machine Active 0 .ROUTE .MEDSUPPLY June 18, 2024 12:00am As directed ondansetron 4 mg disintegrating oral tablet (13 sources) Serotonin-3 Receptor Antagonist Start: 02-26-2025 take 1 tablet by mouth every six hours as needed for nausea and vomiting Ondansetron 4 mg tablet,disintegra ting Active 4 mg PO EVERY 6 HOURS as needed for nausea and vomiting February 26, 2025 12:00am Start: 06-28-2023 take 1 tablet by gerber th every eight hours as needed for nausea Ondansetron 4 MG tablet Indications: Right hip impingement syndrome Take 1 tablet by mouth every 8 hours as needed for Nausea / Vomiting. 30 tablet 1 06/28/2023 Active Start: 06-28-2023 End: 06-28-2023 Ondansetron 4mg/2ml (ZOFRAN) injection 4 mg oxyCODONE hydrochloride 5 mg oral tablet (19 sources) Opioid Agonist Start: 07-11-2023 End: 07-16-2023 take 1-2 tablets by mouth every eight hours as needed for pain oxyCODONE 5 MG tablet Indications: Right hip impingement syndrome Take 1-2 tablets by mouth every 8 hours as needed for Moderate Pain, Severe Pain or Pain (breakthrough) for up to 5 days. 30 tablet 0 07/11/2023 07/16/2023 Active Start: 06-28-2023 End: 07-03-2023 take 1-2 tablets by mouth every six hours as needed oxyCODONE 5 MG tablet Indications: Right hip impingement syndrome Take 1-2 tablets by mouth every 6 hours as needed for up to 5 days. 25 tablet 0 06/28/2023 07/03/2023 Active Start: 08-01-2020 End: 08-01-2020 take 1 capsule by mouth every eight hours as needed for pain Oxycodone 5 mg capsule Discontinued 5 mg PO Q8H as needed for pain August 01, 2020 August 01, 2020 1:08pm Start: 08-01-2020 End: 08-08-2020 take 1 capsule by mouth every eight hours as needed for pain Oxycodone 5 MG capsule Discontinued 5 mg PO EVERY 8 HOURS NEEDED as needed for Pain Score 6-10 5 7 August 01, 2020 August 07, 2020 1:00am August 08, 2020 1:03am Start: 08-01-2020 End: 08-08-2020 take 1 capsule by mouth every eight hours as needed for pain Oxycodone 5 MG capsule Discontinued 5 mg PO EVERY 8 HOURS NEEDED as needed for Pain Score 6-10 5 7 August 01, 2020 August 07, 2020 1:00am August 08, 2020 1:03am pantoprazole 40 mg delayed release oral tablet (14 sources) Proton Pump Inhibitor Start: 03-22-2025 Pantoprazole 40 mg tablet,delayed release (DR/EC) Active 40 mg PO TWICE A DAY 60 March 22, 2025 12:00am take 30minutes before eating breakfast and dinner. Start: 03-29-2023 take 1 tablet by gerber once daily pantoprazole DR (PROTONIX) 40 mg tablet Take 1 tablet by mouth once daily. 0 03/29/2023 Active Comment on above: Take 1 tablet by [facility] once daily. phenazopyridine hydrochloride 200 mg oral tablet (1 source) Start: 2024 take 1 tablet by mouth three times daily as needed for pain Phenazopyridine Hcl (Pyridium) 200 MG Tablet Active 200 MG PO Three Times A Day as needed for Moderate Pain (4-6) 6 February 03, 2025 8:55pm prochlorperazine 5 mg oral tablet (1 source) Phenothiazine Start: 2024 take 1 tablet by mouth three times daily as needed for nausea and vomiting Prochlorperazine Maleate (Compazine) 5 mg tablet Active 5 mg PO THREE TIMES A DAY as needed for nausea and vomiting March 18, 2025 12:00am traZODone hydrochloride 50 mg oral tablet (2 sources) Serotonin Reuptake Inhibitor Start: 2024 take 1 tablet by mouth at bedtime Trazodone 50 mg tablet Active 50 mg PO AT BEDTIME 60 March 08, 2025 12:00am Completed/Discontinued Medications Medication Drug Class(es) Dates Sig (Normalized) Sig (Original) acetaminophen 325 mg / HYDROcodone bitartrate 5 mg oral tablet (4 sources) Opioid Agonist Start: 07-30-2024 End: 02-26-2025 Hydrocodone-Acetami nophen 5-325 mg tablet Discontinued 1 {tbl} PO EVERY 4 HOURS NEEDED as needed for Pain 10 July 30, 2024 February 26, 2025 1:55pm acetaminophen 325 mg / oxyCODONE hydrochloride 5 mg oral tablet (17 sources) Opioid Agonist Start: 12-21-2022 oxyCODONE-acetamino phen (PERCOCET) 5-325 mg tablet TAKE ONE TABLET TWICE DAILY NEEDED FOR SEVERE pain 0 12/21/2022 Active Start: 12-21-2022 End: 02-26-2025 Oxycodone-Acetaminophen (Per cocet) 5-325 mg tablet Discontinued 1 {tbl} PO Q4H as needed December 21, 2022 12:00am February 26, 2025 1:55pm Comment on above: TAKE ONE TABLET TWIC E DAILY NEEDED FOR SEVERE pain azithromycin 250 mg oral tablet (6 sources) Macrolide Antimicrobial Start: 11-30-19 End: 11-30-19 take 2-5 tablets by mouth once daily Azithromycin 250 mg tablet Discontinued 0 PO .COMPLEX November 30, 2019 1:00am November 30, 2019 2:50pm take 500 mg today (day 1), then 250 mg for 4 days (days 2-5) PO benzonatate 200 mg oral capsule (4 sources) Non-narcotic Antitussive Start: 12-22-19 End: 02-27-20 take 1 capsule by mouth three times daily as needed for cough Benzonatate 200 mg capsule Discontinued 200 mg PO THREE TIMES A DAY as needed for cough December 21, 2022 12:00am February 26, 2025 1:55pm calcium chloride 0.0014 meq/ml / potassium chloride 0.004 meq/ml / sodium chloride 0.103 meq/ml / sodium lactate 0.028 meq/ml injectable solution (1 source) Start: 06-28-20 End: 06-28-20 Lactated ringers IV solution cetirizine hydrochloride 10 mg oral capsule (5 sources) Histamine-1 Receptor Antagonist Start: 07-24-20 End: 07-31-20 take 1 capsule by mouth once daily Cetirizine (Zyrtec) 10 mg capsule Discontinued 10 mg PO DAILY July 24, 2019 12:00am July 31, 2020 11:12am 50 ml clindamycin 18 mg/ml injection (1 source) Lincosamide Antibacterial Start: 06-28-20 End: 06-28-20 Clindamycin (CLEOCIN) 900 mg in dextrose 50 ml premix IVPB colestipol hydrochloride 1000 mg oral tablet (12 sources) Bile Acid Sequestrant Start: 03-02-20 End: 10-28-19 take 1 tablet by mouth twice daily colestipol (COLESTID) 1 gram tablet Take 1 tablet by mouth twice daily. 60 tablet 0 03/02/2022 10/28/2022 Discontinued Comment on above: Take 1 tablet by gerber th twice daily. Levonorgestrel-Ethiny l Estrad (5 sources) Progestin, Estrogen, Progestin-containing Intrauterine Device Start: 01-17-20 End: 11-26-19 take 1 tablet by mouth once daily Levonorgestrel-Ethin yl Estrad 0.1-20 mg-mcg tablet Discontinued 1 {tbl} PO DAILY January 16, 2021 12:00am November 26, 2021 10:13am Take active pills only Start: 01-16-2021 End: 11-26-2021 take 1 tablet by mouth once daily Levonorgestrel-Ethinyl Estrad Discontinued 1 TABLET PO DAILY 84 January 16, 2021 12:00am November 26, 2021 10:13am Take active pills only Norgestimate-Ethinyl Estradiol (5 sources) Progestin, Estrogen Start: 08-01-2020 End: 01-16-2021 take 1 tablet by mouth once daily Norgestimate-Ethinyl Estradiol (Sprintec (28)) 0.25-35 mg-mcg tablet Discontinued 1 {tbl} PO DAILY 84 August 01, 2020 12:00am January 16, 2021 10:07am Take only active pills. When complete active pills, discard placebo pills and start new pack. Start: 08-01-2020 End: 01-16-2021 take 1 tablet by mouth once daily Norgestimate-Ethinyl Estradiol (Sprintec (28)) 0.25-35 mg-mcg tablet Discontinued 1 TABLET PO DAILY August 01, 2020 12:00am January 16, 2021 10:07am Take only active pills. When complete active pills, discard placebo pills and start new pack. 2 ml fentaNYL 0.05 mg/ml injection (1 source) Opioid Agonist Start: 06-28-2023 End: 06-28-2023 fentaNYL (SUBLIMAZE) injection 25 mcg 120 actuat formoterol fumarate 0.005 mg/actuat / mometasone furoate 0.1 mg/actuat metered dose inhaler (5 sources) Corticosteroid, beta2-Adrenergic Agonist Start: 07-23-2019 End: 07-24-2019 Mometasone-Formoterol (Dulera) 100-5 mcg/actuation HFA aerosol inhaler Discontinued 2 NMA INHALATION TWICE A DAY July 23, 2019 12:00am July 24, 2019 7:07am Start: 07-23-2019 End: 07-24-2019 take 1 puff(s) by inhalation twice daily Mometasone-Formoterol (Dulera) 100-5 mcg/actuation HFA aerosol inhaler Discontinued 2 PUFF INHALATION TWICE A DAY July 23, 2019 12:00am July 24, 2019 7:07am 1 ml haloperidol 5 mg/ml prefilled syringe (1 source) Typical Antipsychotic Start: 06-28-2023 End: 06-28-2023 Haloperidol lactate (HALDOL) injection 1 mg 1 ml hydrALAZINE hydrochloride 20 mg/ml injection (1 source) Arteriolar Vasodilator Start: 06-28-2023 End: 06-28-2023 hydrALAZINE (APRESOLINE) injection 10 mg ibuprofen 800 mg oral tablet (12 sources) Nonsteroidal Anti-inflammatory Drug Start: 10-29-2021 End: 03-26-2022 take 1 tablet by mouth every eight hours as needed ibuprofen (MOTRIN) 800 mg tablet Take 1 tablet by mouth every 8 hours as needed for pain. FOR PAIN. 30 tablet 1 10/29/2021 03/26/2022 Discontinued Start: 09-07-2021 End: 12-21-2022 take 1 tablet by mouth every six hours as needed for pain Ibuprofen 600 MG tablet Discontinued 600 mg PO EVERY 6 HOURS NEEDED as needed for Pain September 07, 2021 7:16pm December 21, 2022 7:42am Start: 07-31-2020 End: 01-16-2021 take 1 tablet by mouth every eight hours as needed for pain Ibuprofen 800 mg tablet Discontinued 800 mg PO Q8H as needed for pain July 31, 2020 12:00am January 16, 2021 9:52am Comment on above: Take 1 tablet by gerber th every 8 hours as needed for pain. FOR PAIN. labetalol hydrochloride 5 mg/ml injectable solution (15 sources) beta-Adrenergic Fernie Start: 06-28-2023 End: 06-28-2023 Labetalol (NORMODYNE) injection 5 mg Start: 01-16-2021 End: 10-28-2022 labetalol (TRANDATE) 200 mg tablet Take by mouth. 0 01/16/2021 10/28/2022 Discontinued Comment on above: Take by mouth. losartan potassium 25 mg oral tablet (14 sources) Angiotensin 2 Receptor Fernie Start : 12-07 End: 10-28 take 1 tablet by mouth once daily losartan (COZAAR) 25 mg tablet Take 1 tablet by mouth once daily. 0 12/07/2021 10/28/2022 Discontinued Comment on above: Take 1 tablet by gerber th once daily. 1 ml medroxyPROGESTERone acetate 150 mg/ml injection (5 sources) Progestin Start : 03-23 End: 11-26 inject 150 mg by intramuscular injection every three months Medroxyprogesterone (Depo-Provera) 150 mg/mL suspension Discontinued 150 mg IM every 3 months 1 March 23, 2021 12:00am November 26, 2021 10:12am 24 hr metFORMIN hydrochloride 500 mg extended release oral tablet (19 sources) Biguanide Start : 12-07 End: 10-28 metFORMIN ER (GLUCOPHAGE XR) 500 mg 24 hr tablet Start: 05-27-2021 End: 12-21-2022 take 1 tablet by mouth once daily Metformin 500 mg tablet Discontinued 500 mg PO DAILY May 27, 2021 12:00am December 21, 2022 7:42am miSOPROStol 0.2 mg oral tablet (14 sources) Prostaglandin E1 Analog Start: 10-29-2021 End: 10-28-2022 miSOPROStol (CYTOTEC) 200 mcg tablet Indications: Menorrhagia with regular cycle , Pelvic pain in female Insert 2 tablets vaginally night prior to procedure and 2 tablets morning of procedure. Each dose should be in vagina for 6-8 hours. 4 tablet 0 10/29/2021 10/28/2022 Discontinued Comment on above: Insert 2 tablets vag inally night prior to procedure and 2 tablets morning of procedure. Each dose should be in vagina for 6-8 hours. naloxone hydrochloride 40 mg/ml nasal spray (10 sources) Opioid Antagonist Start: 06-28-2023 NARCAN 4 mg/ actuation nasal spray use ONE SPRAY into THE nose DIRECTED FOR a one time DOSE. call 911. if no response in TWO MINUTES use a new nasal SPRAY in other nostril. REPEAT UNTIL help arrives 0 06/28/2023 Active Start: 06-28-2023 End: 06-28-2023 naloxone 4 MG/0.1ML 1 spray by Nasal route once for 1 dose. [place]itt into the nose as directed. Call 911. If no response in 2 minutes use a new nasal spray in other nostril. Repeat until help arrives. 1 Each 0 06/28/2023 Active Comment on above: use ONE SPRAY into T HE nose DIRECTED FOR a one time DOSE. call 911. if no response in TWO MINUTES use a new nasal SPRAY in other nostril. REPEAT UNTIL help arrives omeprazole 20 mg delayed release oral capsule (20 sources) Proton Pump Inhibitor Start: 2 End: 3 take 1 capsule by mouth once daily omeprazole (PRILOSEC) 20 mg capsule Take 1 capsule by mouth once daily. 90 capsule 1 03/02/2022 08/09/2023 Discontinued (Other) Start: 10-30-2019 End: 07-31-2020 take 1 capsule by mouth once daily Omeprazole 20 mg capsule,delayed release(DR/EC) Discontinued 20 mg PO DAILY October 30, 2019 1:00am July 31, 2020 11:13am Comment on above: Take 1 capsule by mo [facility] once daily. predniSONE 20 mg oral tablet (6 sources) Start: 11-30-2019 End: 07-31-2020 take 3 tablets by mouth once daily at mealtime Prednisone 20 mg tablet Discontinued 60 mg PO daily November 30, 2019 1:00am July 31, 2020 11:13am administer with food or milk Start: 11-30-2019 End: 07-31-2020 take 60 mg by mouth once daily at mealtime Prednisone Discontinued 60 MG PO daily November 30, 2019 1:00am July 31, 2020 11:13am administer with food or milk take 1 tablet by [facility] once daily predniSONE 5 MG tablet Take 1 tablet by mouth daily. For 5 days 0 Active raNITIdine 150 mg oral tablet (5 sources) Histamine-2 Receptor Antagonist Start: 07-23-2019 End: 10-30-2019 take 1 capsule by mouth once daily Ranitidine Hcl 150 mg capsule Discontinued 150 mg PO DAILY July 23, 2019 12:00am October 30, 2019 10:48am Start: 07-23-2019 End: 10-30-2019 take 150 mg by mouth once daily Ranitidine Hcl Discontinued 150 MG PO DAILY July 23, 2019 12:00am October 30, 2019 10:48am sulfamethoxazole 800 mg / trimethoprim 160 mg oral tablet (5 sources) Dihydrofolate Reductase Inhibitor Antibacterial, Sulfonamide Antimicrobial Start: 11-30-2019 End: 07-31-2020 Sulfamethoxazole-Trimethopri m (Bactrim Ds) 800-160 mg tablet Discontinued 1 {tbl} PO TWICE A DAY November 30, 2019 1:00am July 31, 2020 11:13am Problems Active Problems Problem Classification Problem Date Documented Da te Episodic/Chronic Abdominal pain (20 sources) Generalized abdominal pain; Translations: [Generalized abdominal pain] Onset: 3 Episodic Allergic reactions (6 sources) Environmental allergy; Translations: [Other allergy status, other than to drugs and biological substances] Onset: 4 10-30-2019 Episodic Anxiety disorders (12 sources) Anxiety; Translations: [Anxiety disorder, unspecified] Onset: 3 Chronic Asthma (17 sources) Asthma; Translations: [Unspecified asthma, uncomplicated] Onset: 3 Chronic Complication of device; implant or graft (1 source) Pain; Translations: [Pain due to genitourinary prosthetic devices, implants and grafts, initial encounter] Episodic Diseases of white blood cells (5 sources) Leukocytosis; Translations: [Elevated white blood cell count, unspecified] 10-30-2019 Chronic Esophageal disorders (15 sources) Gastroesophageal reflux disease; Translations: [Gastro-esophageal reflux disease without esophagitis] Onset: 3 Chronic Essential hypertension (10 sources) Essential hypertension; Translations: [Essential (primary) hypertension] Onset: 3 08-09-2023 Chronic Genitourinary symptoms and ill-defined conditions (3 sources) Hematuria, unspecified; Translations: [Blood in urine] Onset: 5 03-15-2025 Episodic Mood disorders (4 sources) Depressive disorder; Translations: [Depression] 03-08-2025 Chronic Nausea and vomiting (2 sources) Nausea; Translations: [Nausea] 03-18-2025 Episodic Noninfectious gastroenteritis (7 sources) Colitis; Translations: [Noninfective gastroenteritis and colitis, unspecified] Onset: 5 Episodic Other endocrine disorders (4 sources) Polycystic ovary syndrome; Translations: [Polycystic ovarian syndrome] 03-08-2025 Chronic Other female genital disorders (2 sources) Vaginal discharge; Translations: [Other specified noninflammatory disorders of vagina] Episodic Other female genital disorders (1 source) History of gynecological disorder; Translations: [Personal history of other diseases of the female genital tract] 08-09-2023 Episodic Other gastrointestinal disorders (2 sources) History of gastroesophageal reflux disease; Translations: [Personal history of other diseases of the digestive system] Onset: 3 08-29-2023 Episodic Other gastrointestinal disorders (2 sources) Diarrhea; Translations: [Diarrhea, unspecified] 03-22-2025 Episodic Other lower respiratory disease (2 sources) Lower respiratory tract infection; Translations: [Unspecified acute lower respiratory infection] 03-15-2025 Episodic Comment on above: s/p hospitalization Other non-traumatic joint disorders (6 sources) Hip pain; Translations: [Pain in right hip] Episodic Other non-traumatic joint disorders (6 sources) Enthesopathy of hip region; Translations: [Other specified joint disorders, right hip] Episodic Other non-traumatic joint disorders (2 sources) Other specified joint disorders, right hip; Translations: [Other specified joint disorders, right hip] Onset: 3 Episodic Other non-traumatic joint disorders (2 sources) Pain in right hip; Translations: [Pain in right hip] Onset: 3 Episodic Other nutritional; endocrine; and metabolic disorders (7 sources) Morbid obesity; Translations: [Morbid (severe) obesity due to excess calories] Onset: 3 08-29-2023 Chronic Other nutritional; endocrine; and metabolic disorders (1 source) Morbid (severe) obesity due to excess calories; Translations: [Morbid obesity] Chronic Other nutritional; endocrine; and metabolic disorders (2 sources) Severe obesity; Translations: [Morbid (severe) obesity due to excess calories] Chronic Other nutritional; endocrine; and metabolic disorders (7 sources) Obesity; Translations: [Obesity, unspecified] Onset: 3 10-28-2022 Chronic Other nutritional; endocrine; and metabolic disorders (11 sources) Body mass index 40+ - severely obese; Translations: [Morbid (severe) obesity due to excess calories] Onset: 3 05-09-2023 Chronic Other screening for suspected conditions (not mental disorders or infectious disease) (1 source) Cancer cervix screening status; Translations: [Encounter for screening for malignant neoplasm of cervix] 08-09-2023 Episodic Other upper respiratory disease (5 sources) Allergic rhinitis; Translations: [Allergic rhinitis, unspecified] 10-30-2019 Chronic Other upper respiratory disease (1 source) Allergic rhinitis, unspecified; Translations: [Allergic rhinitis, cause unspecified] Chronic Ovarian cyst (16 sources) Cyst of ovary; Translations: [Unspecified ovarian cyst, unspecified side] Onset: 5 Episodic Residual codes; unclassified (5 sources) History of operative procedure on foot; Translations: [Other specified postprocedural states] 10-30-2019 Episodic Residual codes; unclassified (6 sources) History of operative procedure on hip; Translations: [Other specified postprocedural states] 06-29-2023 Episodic Residual codes; unclassified (1 source) Acquired absence of other specified parts of digestive tract; Translations: [Acquired absence of other specified parts of digestive tract] Onset: 5 Episodic Spondylosis; intervertebral disc disorders; other back problems (13 sources) Lumbar radiculopathy; Translations: [Radiculopathy, lumbar region] Onset: 5 03-30-2022 Episodic Unclassified (1 source) Unknown / UNK(Unknown) Onset: 8 Unclassified (2 sources) Post Op Visit; Translations: [Post Op Visit] Onset: 3 Unclassified (2 sources) K52.9 - Noninfective gastroenteritis and colitis, unspecified Urinary tract infections (1 source) Urinary tract infectious disease; Translations: [Urinary tract infection, site not specified] 02-03-2025 Episodic Viral infection (5 sources) Disease caused by 2019-nCoV; Translations: [COVID-19] 09-07-2021 Episodic Past or Other Problems Problem Classification Problem Date Documented Date Episodic/Chronic Contraceptive and procreative management (3 sources) Intrauterine contraceptive device in situ; Translations: [Encounter for routine checking of intrauterine contraceptive device] Onset: 07-18-2023 Episodic Malaise and fatigue (1 source) Other fatigue; Translations: [Other fatigue] Onset: 04-13-2024 Episodic Other connective tissue disease (1 source) Plantar fasciitis Onset: 10-07-2017 Episodic Other lower respiratory disease (2 sources) Shortness of breath; Translations: [Shortness of breath] Onset: 06-20-2024 Episodic Pneumonia (except that caused by tuberculosis or sexually transmitted disease) (1 source) Other pneumonia, unspecified organism; Translations: [Other pneumonia, unspecified organism] Onset: 06-17-2024 Episodic Sprains and strains (6 sources) Acetabular labrum tear; Translations: [Other sprain of right hip, initial encounter] Onset: 06-18-2022 Episodic Results Test Name Value Interpretation Reference Range Facility Internal Medicine Office Vis iton 03-15-2025 Internal Medicine Office Visit [facility] [address] [place] [address] [place] [address] OFFICE VISIT Date of Service: 03/15/25 MR#: [id number] Acct: [id number] Name: JESSICA ACUNA Rep #: [id number] : 1995 Provider: JUDD kemp Age/Sex: 30/F Location: [facility] [place] Status: Signed Intake Vital Signs 03/08/25 15:00 03/15/25 13:49 Height 5 ft 6 in 5 ft 6 in Weight: 327 lb 4 oz BMI 52.8 BP 148/88 H 138/82 H Blood Pressure Location Lt brachial Lt brachial Position Sitting Sitting Respiration 16 18 Pulse 102 H 88 Pulse Source Monitor Monitor Temp 97.1 F L 98.2 F Temp Source Temporal Temporal Pulse Oximetry (%) 100 96 Oxygen Delivery Method room air room air Intake Visit Reasons: [facility] FU Chief Complaint: [place] FU Is patient in pain?: No Allergies Penicillins Allergy (Verified 03/15/25 13:51) rash Medications ???Medication ???Instructions ???Recorded ???Confirmed ???Type levonorgestrel (Mirena) 1 insert intrauterine ONCE 2 03/15/25 History Nebulizer machine #1 ea 06/18/24 03/15/25 Rx fluticasone furoate 200 1 inh inhalation DAILY #60 ea 11/0403/08/25 Rx mcg-vilanterol 25 mcg/dose inhalation powder (Breo Ellipta) ondansetron 4 mg disintegrating 4 mg PO Q6H PRN nausea and 5 03/15/25 Rx tablet vomiting #20 tabs dicyclomine 20 mg tablet 20 mg PO TID PRN abdominal 5 03/15/25 Rx cramping #30 tabs duloxetine 60 mg capsule,delayed 60 mg PO DAILY #90 caps 03/08/25 0 03/15/25 Rx release losartan 50 mg-hydrochlorothiazide 1 tab PO DAILY #90 tabs 03/08/25 03/15/25 Rx 12.5 mg tablet trazodone 50 mg tablet 50 mg PO QHS #60 tabs 03/08/25 Rx naproxen 500 mg tablet 500 mg PO BID PRN pain #30 tabs 03/15/25 Rx albuterol sulfate 2.5 mg/3 mL 2.5 mg (3 mL) inhalation Q4H PRN 0 03/15/25 03/15/25 Rx (0.083 %) solution for nebulization shortness of breath or wheezing #180 mL albuterol sulfate 90 mcg/actuation 2 puff inhalation Q4H PRN 03/15/25 Rx aerosol inhaler (Ventolin HFA) shortness of breath or wheezing #8.5 grams dextromethorphan polistirex 30 10 ml PO Q12H PRN cough #89 mL 03/15/25 Rx mg/5 mL oral susp ext.release 12hr (Delsym 12 hour) Nurse's Note: pt has c/o pain in back with urination. PFSH Medical History Depression PCOS (polycystic ovarian syndrome) Hypertension Anxiety Colitis Non-smoker COVID-19 affecting childbirth GERD (gastroesophageal reflux disease) Leukocytosis Environmental allergies Allergic rhinitis LUCY (obstructive sleep apnea) Surgical History S/P cholecystectomy History of tonsillectomy History of foot surgery Family History Father CVA (cerebral vascular accident) Mother Intrinsic asthma Grandfather Diabetes COPD (chronic obstructive pulmonary disease) Social History Smoking Status: Never smoker alcohol intake: never substance use type: does not use caffeine: Yes what type of physical activity do you participate in: none seatbelt use: always do you feel safe at home: Yes HPI HPI Chief Complaint: [place] FU Details: JESSICA ACUNA, is a 30 F who presents to the office today for follow-up after recent hospital stay. Patient was hospitalized for asthma exacerbation at [facility]. Patient states breathing is better today but does still note wheezing. Patient currently taking albuterol nebulizers routine steroid inhaler and azithromycin and prednisone .patient also complains of right lower quadrant and right flank pain. States while she was in the hospital she noticed her urine was dark also having pain which made her nauseated and vomit while she was in the hospital. She states she did not have her urine checked while she was at the hospital has continued to have this pain states pain is intermittent happens at rest or with activity no causative factors no relieving factors noted states when she does have the pain she also feels sweaty and nauseous. Describes it as a stabbing pain rates as a 8 out of 10 on pain scale when pain occurs ROS Const Constitutional: No body ache, chills, excessive sweating, fatigue, fever(s), frequent falls, headache(s), snoring, weight change, sleep problems, abnormal sleep pattern or change in appetite Eyes Eyes: No blurry vision, change in vision, eye pain or Light sensitivity ENT ENT: No abnormal hearing, ear or mastoid pain, tinnitus, nasal congestion, headache(s), neck pain or sore throat Resp Respiratory: Positive for cough, chest congestion, shortness of breath and wheezing; (more content not included)... Normal [facility] - Chemistry and C hemistry - challengeOrdered By: Tia Núñez on 03-15-2025 Bilirubin Ql (U) Negative [facility] Glucose Ql (U) Negative [facility] pH (U) 5.0 [pH] [facility] Specific gravity (U) [Rel density] 1.025 [facility] Urobilinogen (U) [Mass/Vol] Negative [facility] - Hematology and Cell countsOrdered By: Tia Núñez on 03-15-2025 Hemoglobin Ql (U) Trace [facility] - Specimen inform ationOrdered By: Tia Núñez on 03-15-2025 Clarity (U) Clear [facility] Color (U) Yellow [facility] - UrinalysisOrder ed By: Tia Núñez on 03-15-2025 Nitrite Ql (U) Negative [facility] BMP with eGFR DAILYon 2024 AGE 30 years Normal [facility] Comment on above: Performed By: #### 2 [id number] ####[facility],[address] [place] [address]01 Anion gap [Moles/Vol] 10 mmol/L Normal 10 - 20 [facility] Comment on above: Performed By: #### 2 [id number] ####[facility],[address] [place] [address]196 BMP with eGFR DAILY Normal [facility] Comment on above: Result Comment: BASI C METABOLIC PANEL Performed By: #### 2 84630 ####[facility],[address] [place] [address]606 Calcium [Mass/Vol] 8.9 mg/dL Normal 8.5 - 10.1 [facility] Comment on above: Performed By: #### 2 62422 ####[facility],[address] [place] [address] 40315 Chloride [Moles/Vol] 105 mmol/L Normal 98 - 107 [facility] Comment on above: Performed By: #### 2 90605 ####[facility],[address] [place] [address]6938 CO2 [Moles/Vol] 25.1 mmol/L Normal 21.0 - 32.0 [facility] Comment on above: Performed By: #### 2 55662 ####[facility],[address] [place] [address] 10998 Creatinine [Mass/Vol] 0.78 mg/dL Normal 0.55 - 1.02 [facility] Comment on above: Performed By: #### 2 63025 ####[address] [address] GFR/1.73 sq M.predicted among non-blacks MDRD (S/P/Bld) [Vol rate/Area] mL/min/{1.73_m2} Normal 60 - 999 [facility] Comment on above: Performed By: #### 2 [id number] ####[facility],[address] [place] [address] Result Comment: ACCO RDING TO THE NATIONAL KIDNEY DISEASE EDUCATION PROGRAM(NKDE), A NORMAL eGFRIS A VALUE GREATER THAN OR EQUAL TO 60 ML/MIN/1.73 SQ METERS.CHRONIC KIDNEY DISEASE: <60mL/MIN/1.73 SQ METERSKIDNEY FAILURE: <15mL/MIN/1.73 SQ METERSTHIS TEST SHOULD ONLY BE USED FOR PATIENTS 18 YEARS OF AGE AND OLDER. Glucose [Mass/Vol] 138 mg/dL High 74 - 106 [facility] Comment on above: Performed By: #### 2 33004 ####[place] [address] Potassium [Moles/Vol] 4.5 mmol/L Normal 3.5 - 5.1 [facility] Comment on above: Performed By: #### 2 12670 ####[place] [address] Sodium [Moles/Vol] 136 mmol/L Normal 136 - 145 [facility] Comment on above: Performed By: #### 2 07753 ####[place] [address] Urea nitrogen [Mass/Vol] 17 mg/dL Normal 7 - 18 [facility] Comment on above: Performed By: #### 2 86982 ####[place] [id number] CBC + DIFFon 03-13-2025 Baso # 0.00 x10EE3/UL Normal 0.00 - 0.10 [facility] Comment on above: Performed By: #### 2 21886 ####[place] [id number] Basophils/100 WBC (Bld) 0.0 % Normal 0.0 - 2.0 [facility] Comment on above: Performed By: #### 2 60857 ####[address],[place] [address] CBC + DIFF Normal [facility] Comment on above: Result Comment: CBC- COMPLETE BLOOD COUNT Performed By: #### 2 24170 ####[facility],[address] [place] [address]68 EO # 0.11 x10EE3/UL Normal 0.00 - 0.50 [facility] Comment on above: Performed By: #### 2 35788 ####[facility],[address] [place] [address] Eosinophils/100 WBC (Bld) 0.8 % Normal 0.0 - 7.0 [facility] Comment on above: Performed By: #### 2 50577 ####[facility],[address] [place] [address] Erythrocyte distribution width (RBC) [Ratio] 13.5 % Normal 12.0 - 15.6 [facility] Comment on above: Performed By: #### 2 60425 ####[facility],[address] [place] [address] Hematocrit (Bld) [Volume fraction] 42.8 % Normal 34.0 - 46.0 [facility] Comment on above: Performed By: #### 2 53674 ####[facility],[address] [place], [place] [id number] Hemoglobin (Bld) [Mass/Vol] 14.7 g/dL Normal 12.0 - 16.0 [facility] Comment on above: Performed By: #### 2 10673 ####[facility],[address] [place] [address]2673 Lymph # 0.75 x10EE3/UL Low 0.80 - 2.80 [facility] Comment on above: Performed By: #### 2 77334 ####[facility],[address] [place] [address] 19734 Lymphocytes/100 WBC (Bld) 5.1 % Low 20.0 - 45.0 [facility] Comment on above: Performed By: #### 2 14790 ####[facility],[address] [place] [address] MANUAL DIFF N/A Normal [facility] Comment on above: Performed By: #### 2 95848 ####[facility],[address] [place] [address] MCH (RBC) [Entitic mass] 30 pg Normal 27 - 33 [facility] Comment on above: Performed By: #### 2 72535 ####[facility],[address] [place] [address] MCHC 34 X10 3 Normal 32 - 36 [facility] Comment on above: Performed By: #### 2 21700 ####[facility],[address] [place] [address] MCV (RBC) [Entitic vol] 87 fL Normal 80 - 99 [facility] Comment on above: Performed By: #### 2 98135 ####[facility],[address] [place] [address] [place] # 0.26 x10EE3/UL Normal 0.20 - 1.00 [facility] Comment on above: Performed By: #### 2 34078 ####[facility],[address] [place] [address] MONOS % 1.8 % Normal 0.0 - 10.0 [facility] Comment on above: Performed By: #### 2 33936 ####[facility],[address] [place] [address] Morphology Kamlesh (Bld) [Interp] N/A Normal [facility] Comment on above: Performed By: #### 2 86668 ####[facility],[address] [place] [address] Neut # 13.65 x10EE3/UL High 1.50 - 7.10 [facility] Comment on above: Performed By: #### 2 91833 ####[facility],[address] [place] [address]1103 Neutrophils/100 WBC (Bld) 92.4 % High 46.0 - 76.0 [facility] Comment on above: Performed By: #### 2 10196 ####[facility],[address] [place] [address] 11033 PLATELET 215 x10EE3/UL Normal 150 - 450 [facility] Comment on above: Performed By: #### 2 74105 ####[facility],[address] [place] [address] 43926 Platelet mean volume (Bld) [Entitic vol] 9.1 fL Normal 6.6 - 10.5 [facility] Comment on above: Result Comment: AUTO MATED DIFFERENTIAL Performed By: #### 2 [id number] ####[facility],[address] [place] [address] 28713 RBC 4.92 x 10EE6/UL Normal 4.10 - 5.30 [facility] Comment on above: Performed By: #### 2 33750 ####[facility],[address] [place] [address] 60924 WBC 14.8 x 10EE3/UL High 4.5 - 10.8 [facility] Comment on above: Performed By: #### 2 92696 ####[facility],[address] [place] [address] 83224 MAGNESIUM DAILYon 03-13-2025 Magnesium [Mass/Vol] 2.5 mg/dL High 1.8 - 2.4 [facility] Comment on above: Performed By: #### 2 64778 ####[facility],[address] [place] [address] 49065 BMP with eGFRon 03-12-2025 AGE 30 years Normal [facility] Comment on above: Performed By: #### 2 96023 ####[facility],[address] [place] [address] 60215 Anion gap [Moles/Vol] 11 mmol/L Normal 10 - 20 [facility] Comment on above: Performed By: #### 2 04696 ####[facility],[address] [place] [address] 17236 BMP with eGFR Normal [facility] Comment on above: Result Comment: BASI C METABOLIC PANEL Performed By: #### 2 44177 ####[facility],[address] [place] [address] 89841 Calcium [Mass/Vol] 8.8 mg/dL Normal 8.5 - 10.1 [facility] Comment on above: Performed By: #### 2 58171 ####[facility],[address] [place] [address] 69914 Chloride [Moles/Vol] 104 mmol/L Normal 98 - 107 [facility] Comment on above: Performed By: #### 2 41159 ####[facility],[address] [place] [address] 87235 CO2 [Moles/Vol] 24.3 mmol/L Normal 21.0 - 32.0 [facility] Comment on above: Performed By: #### 2 28974 ####[facility],[address] [place] [address] 90658 Creatinine [Mass/Vol] 0.74 mg/dL Normal 0.55 - 1.02 [facility] Comment on above: Performed By: #### 2 87345 ####[facility],[address] [place] [address] 97825 GFR/1.73 sq M.predicted among non-blacks MDRD (S/P/Bld) [Vol rate/Area] mL/min/{1.73_m2} Normal 60 - 999 [facility] Comment on above: Performed By: #### 2 72743 ####[facility],[address] [place] [address] 37073 Result Comment: ACCO RDING TO THE NATIONAL KIDNEY DISEASE EDUCATION PROGRAM(NKDE), A NORMAL eGFRIS A VALUE GREATER THAN OR EQUAL TO 60 ML/MIN/1.73 SQ METERS.CHRONIC KIDNEY DISEASE: <60mL/MIN/1.73 SQ METERSKIDNEY FAILURE: <15mL/MIN/1.73 SQ METERSTHIS TEST SHOULD ONLY BE USED FOR PATIENTS 18 YEARS OF AGE AND OLDER. Glucose [Mass/Vol] 132 mg/dL High 74 - 106 [facility] Comment on above: Performed By: #### 2 57653 ####[facility],[address] [place] [address] Potassium [Moles/Vol] 4.1 mmol/L Normal 3.5 - 5.1 [facility] Comment on above: Performed By: #### 2 53699 ####[place] [address] Sodium [Moles/Vol] 135 mmol/L Low 136 - 145 [facility] Comment on above: Performed By: #### 2 99650 ####[place] [address] Urea nitrogen [Mass/Vol] 14 mg/dL Normal 7 - 18 [facility] Comment on above: Performed By: #### 2 79833 ####[place] [address] CBC + DIFFon 03-12-2025 Baso # 0.02 x10EE3/UL Normal 0.00 - 0.10 [facility] Comment on above: Performed By: #### 2 30355 ####[facility],[address] [place], [place] [id number] Basophils/100 WBC (Bld) 0.1 % Normal 0.0 - 2.0 [facility] Comment on above: Performed By: #### 2 85144 ####[place] [address] CBC + DIFF Normal [facility] Comment on above: Result Comment: CBC- COMPLETE BLOOD COUNT Performed By: #### 2 82015 ####[place] [address] EO # 0.07 x10EE3/UL Normal 0.00 - 0.50 [facility] Comment on above: Performed By: #### 2 49877 ####[facility],[address] [place], [place] [phone] Eosinophils/100 WBC (Bld) 0.4 % Normal 0.0 - 7.0 [facility] Comment on above: Performed By: #### 2 17059 ####[facility],[address] [place] [address] Erythrocyte distribution width (RBC) [Ratio] 13.2 % Normal 12.0 - 15.6 [facility] Comment on above: Performed By: #### 2 78248 ####[facility],[address] [place] [address] Hematocrit (Bld) [Volume fraction] 43.2 % Normal 34.0 - 46.0 [facility] Comment on above: Performed By: #### 2 11227 ####[facility],[address] [place] [address] Hemoglobin (Bld) [Mass/Vol] 15.2 g/dL Normal 12.0 - 16.0 [facility] Comment on above: Performed By: #### 2 18660 ####[facility],[address] [place] [address] 80320 Lymph # 0.64 x10EE3/UL Low 0.80 - 2.80 [facility] Comment on above: Performed By: #### 2 37708 ####[facility],[address] [place] [address] 85380 Lymphocytes/100 WBC (Bld) 4.1 % Low 20.0 - 45.0 [facility] Comment on above: Performed By: #### 2 91627 ####[facility],[address] [place], [place] [id number] MANUAL DIFF N/A Normal [facility] Comment on above: Performed By: #### 2 81982 ####[facility],[address] [place] [address] MCH (RBC) [Entitic mass] 30 pg Normal 27 - 33 [facility] Comment on above: Performed By: #### 2 80360 ####[facility],[address] [place] [address] MCHC 35 X10 3 Normal 32 - 36 [facility] Comment on above: Performed By: #### 2 31627 ####[facility],[address] [place] [address] MCV (RBC) [Entitic vol] 86 fL Normal 80 - 99 [facility] Comment on above: Performed By: #### 2 02367 ####[facility],[address] [place] [address] [place] # 0.51 x10EE3/UL Normal 0.20 - 1.00 [facility] Comment on above: Performed By: #### 2 19490 ####[facility],[address] [place] [address] MONOS % 3.3 % Normal 0.0 - 10.0 [facility] Comment on above: Performed By: #### 2 28342 ####[facility],[address] [place], [place] [id number] Morphology Kamlesh (Bld) [Interp] N/A Normal [facility] Comment on above: Performed By: #### 2 57055 ####[facility],[address] [place] [address] Neut # 14.38 x10EE3/UL High 1.50 - 7.10 [facility] Comment on above: Performed By: #### 2 20644 ####[facility],[address] [place] [address] Neutrophils/100 WBC (Bld) 92.1 % High 46.0 - 76.0 [facility] Comment on above: Performed By: #### 2 83020 ####[facility],[address] [place] [address] 87349 PLATELET 265 x10EE3/UL Normal 150 - 450 [facility] Comment on above: Performed By: #### 2 81010 ####[facility],[address] [place] [address] 42370 Platelet mean volume (Bld) [Entitic vol] 8.6 fL Normal 6.6 - 10.5 [facility] Comment on above: Result Comment: AUTO MATED DIFFERENTIAL Performed By: #### 2 10086 ####[facility],[address] [place] [address] 17379 RBC 5.00 x 10EE6/UL Normal 4.10 - 5.30 [facility] Comment on above: Performed By: #### 2 73199 ####[facility],[address] [place] [address] 25100 WBC 15.6 x 10EE3/UL High 4.5 - 10.8 [facility] Comment on above: Performed By: #### 2 00216 ####[facility],[address] [place] [address] 89357 MAGNESIUM DAILYon 03-12-2025 Magnesium [Mass/Vol] 2.4 mg/dL Normal 1.8 - 2.4 [facility] Comment on above: Performed By: #### 2 21071 ####[facility],[address] [place] [address] 77605 CBC + DIFFon 03-11-2025 Baso # 0.02 x10EE3/UL Normal 0.00 - 0.10 [facility] Comment on above: Performed By: #### 2 94986 ####[facility],[address] [place] [address] 39198 Basophils/100 WBC (Bld) 0.2 % Normal 0.0 - 2.0 [facility] Comment on above: Performed By: #### 2 91298 ####[facility],[address] [place] [address] 12729 CBC + DIFF Normal [facility] Comment on above: Result Comment: CBC- COMPLETE BLOOD COUNT Performed By: #### 2 22489 ####[facility],[address] [place] [address] 38618 EO # 0.35 x10EE3/UL Normal 0.00 - 0.50 [facility] Comment on above: Performed By: #### 2 97648 ####[facility],[address] [place] [address] Eosinophils/100 WBC (Bld) 4.3 % Normal 0.0 - 7.0 [facility] Comment on above: Performed By: #### 2 03051 ####[place] [address] Erythrocyte distribution width (RBC) [Ratio] 12.9 % Normal 12.0 - 15.6 [facility] Comment on above: Performed By: #### 2 96097 ####[facility],[address] [place] [address] Hematocrit (Bld) [Volume fraction] 42.0 % Normal 34.0 - 46.0 [facility] Comment on above: Performed By: #### 2 89038 ####[facility],[address] [place], [place] [phone] Hemoglobin (Bld) [Mass/Vol] 15.0 g/dL Normal 12.0 - 16.0 [facility] Comment on above: Performed By: #### 2 03766 ####[facility],[address] [place] [address] 82353 Lymph # 1.20 x10EE3/UL Normal 0.80 - 2.80 [facility] Comment on above: Performed By: #### 2 44721 ####[facility],[address] [place], [place] [phone] Lymphocytes/100 WBC (Bld) 14.6 % Low 20.0 - 45.0 [facility] Comment on above: Performed By: #### 2 61771 ####[facility],[address] [place] [address] MANUAL DIFF N/A Normal [facility] Comment on above: Performed By: #### 2 57312 ####[facility],[address] [place] [address] MCH (RBC) [Entitic mass] 30 pg Normal 27 - 33 [facility] Comment on above: Performed By: #### 2 00300 ####[facility],[address] [place] [address] MCHC 36 X10 3 Normal 32 - 36 [facility] Comment on above: Performed By: #### 2 91240 ####[facility],[address] [place] [address] MCV (RBC) [Entitic vol] 85 fL Normal 80 - 99 [facility] Comment on above: Performed By: #### 2 42163 ####[facility],[address] [place] [address] [place] # 0.42 x10EE3/UL Normal 0.20 - 1.00 [facility] Comment on above: Performed By: #### 2 55050 ####[facility],[address] [place] [address] MONOS % 5.2 % Normal 0.0 - 10.0 [facility] Comment on above: Performed By: #### 2 22177 ####[facility],[address] [place] [address] Morphology Kamlesh (Bld) [Interp] N/A Normal [facility] Comment on above: Performed By: #### 2 72629 ####[facility],[address] [place] [address] Neut # 6.24 x10EE3/UL Normal 1.50 - 7.10 [facility] Comment on above: Performed By: #### 2 72633 ####[facility],[address],[place] [address] Neutrophils/100 WBC (Bld) 75.8 % Normal 46.0 - 76.0 [facility] Comment on above: Performed By: #### 2 81356 ####[facility],[address] [place] [address] 80785 PLATELET 246 x10EE3/UL Normal 150 - 450 [facility] Comment on above: Performed By: #### 2 47579 ####[facility],[address] [place] [address] 00874 Platelet mean volume (Bld) [Entitic vol] 7.9 fL Normal 6.6 - 10.5 [facility] Comment on above: Result Comment: AUTO MATED DIFFERENTIAL Performed By: #### 2 80190 ####[facility],[address] [place] [address] 06674 RBC 4.93 x 10EE6/UL Normal 4.10 - 5.30 [facility] Comment on above: Performed By: #### 2 58062 ####[facility],[address] [place] [address] 97988 WBC 8.2 x 10EE3/UL Normal 4.5 - 10.8 [facility] Comment on above: Performed By: #### 2 09988 ####[facility],[address] [place] [address] 57658 CHEST 1 VIEWon 03-11-2025 CHEST 1 VIEW Normal [facility] CMP with eGFRon 03-11-2025 AGE 30 years Normal [facility] Comment on above: Performed By: #### 2 06276 ####[facility],[address] [place] [address] 13347 Albumin [Mass/Vol] 3.3 g/dL Low 3.4 - 5.0 [facility] Comment on above: Performed By: #### 2 57609 ####[facility],[address] [place] [address] 50756 Albumin/Globulin [Mass ratio] 0.9 {ratio} Normal 0.9 - 1.6 [facility] Comment on above: Performed By: #### 2 04422 ####[facility],[address] [place] [address] 55108 ALK PHOS 85 U/L Normal 46 - 116 [facility] Comment on above: Performed By: #### 2 66443 ####[facility],[address] [place] [address] 55464 ALT [Catalytic activity/Vol] 26 U/L Normal 16 - 63 [facility] Comment on above: Performed By: #### 2 50497 ####[facility],[address] [place] [address] 79982 Anion gap [Moles/Vol] 15 mmol/L Normal 10 - 20 [facility] Comment on above: Performed By: #### 2 20012 ####[facility],[address] [place] [address] 64028 AST [Catalytic activity/Vol] 13 U/L Normal 13 - 39 [facility] Comment on above: Performed By: #### 2 09547 ####[facility],[address] [place] [address] 53454 B/C RATIO 17 ratio Normal 0 - 30 [facility] Comment on above: Performed By: #### 2 24278 ####[facility],[address] [place] [address] 67224 Bilirubin [Mass/Vol] 0.3 mg/dL Normal 0.2 - 1.0 [facility] Comment on above: Performed By: #### 2 50477 ####[facility],[address] [place] [address] 78581 Calcium [Mass/Vol] 8.5 mg/dL Normal 8.5 - 10.1 [facility] Comment on above: Performed By: #### 2 07441 ####[facility],[address] [place] [address] 02641 Chloride [Moles/Vol] 103 mmol/L Normal 98 - 107 [facility] Comment on above: Performed By: #### 2 75777 ####[facility],[address] [place] [address] 02902 CMP with eGFR Normal [facility] Comment on above: Result Comment: COMP REHENSIVE METABOLIC PANEL Performed By: #### 2 48673 ####[facility],[address] [place] [address] 79267 CO2 [Moles/Vol] 23.2 mmol/L Normal 21.0 - 32.0 [facility] Comment on above: Performed By: #### 2 98742 ####[facility],[address] [place], [place] [address] Creatinine [Mass/Vol] 0.82 mg/dL Normal 0.55 - 1.02 [facility] Comment on above: Performed By: #### 2 07982 ####[facility],[address] [place], [place] [address] GFR/1.73 sq M.predicted among non-blacks MDRD (S/P/Bld) [Vol rate/Area] mL/min/{1.73_m2} Normal 60 - 999 [facility] Comment on above: Performed By: #### 2 17360 ####[facility],[address] [place], [place] [address] Result Comment: ACCO RDING TO THE NATIONAL KIDNEY DISEASE EDUCATION PROGRAM(NKDE), A NORMAL eGFRIS A VALUE GREATER THAN OR EQUAL TO 60 ML/MIN/1.73 SQ METERS.CHRONIC KIDNEY DISEASE: <60mL/MIN/1.73 SQ METERSKIDNEY FAILURE: <15mL/MIN/1.73 SQ METERSTHIS TEST SHOULD ONLY BE USED FOR PATIENTS 18 YEARS OF AGE AND OLDER. Globulin (S) [Mass/Vol] 3.6 g/dL Normal 1.5 - 3.8 [facility] Comment on above: Performed By: #### 2 64749 ####[facility],[address] [place], [place] [phone] Glucose [Mass/Vol] 123 mg/dL High 74 - 106 [facility] Comment on above: Performed By: #### 2 52263 ####[facility],[address] [place] [address] Potassium [Moles/Vol] 3.5 mmol/L Normal 3.5 - 5.1 [facility] Comment on above: Performed By: #### 2 82844 ####[facility],[address] [place] [address] Protein [Mass/Vol] 6.9 g/dL Normal 6.4 - 8.2 [facility] Comment on above: Performed By: #### 2 98916 ####[facility],[address] [place] [address] Sodium [Moles/Vol] 138 mmol/L Normal 136 - 145 [facility] Comment on above: Performed By: #### 2 21898 ####[facility],[address] [place] [address] Urea nitrogen [Mass/Vol] 14 mg/dL Normal 7 - 18 [facility] Comment on above: Performed By: #### 2 99038 ####[facility],[address] [place] [address] CORONAVIRUS (SARS) ANTIGEN T ESTon 03-11-2025 EXTERNAL QC DONE? YES Normal [facility] Comment on above: Performed By: #### 2 89643 ####[facility],[address] [place] [address] INTERNAL CONTROL PASS Normal [facility] Comment on above: Performed By: #### 2 76293 ####[facility],[address] [place] [address] SARS ANTIGEN Negative Normal NORMAL: NEGATIVE [facility] Comment on above: Performed By: #### 2 58587 ####[facility],[address] [place] [address] SEND TO ? NO Normal [facility] Comment on above: Result Comment: SARS -CoV-2THIS TEST IS BEING USED UNDER THE FDA EUA PROCEDURE. THIS ASSAY HAS BEENVALIDATED AT [facility] FOR USE WITH NASAL AND NASOPHARYNGEAL SWABSPECIMENS.INTERPRETIVE DATATEST RESULTS SHOULD ALWAYS BE CONSIDERED IN THE CONTEXT OF CLINICALOBSERVATIONS AND EPIDEMIOLOGICAL DATA IN MAKING FINAL DIAGNOSIS AND PATIENTMANAGEMENT DECISIONS. PATIENT MANAGEMENT SHOULD FOLLOW CURRENT CDC GUIDELINES.THE NELL SARS ANTIGEN MARJAN DOES NOT DIFFERENTIATE BETWEEN SARS-CoV & SARS-CoV-2.A POSITIVE TEST RESULT INDICATES THE PRESENCE OF SARS-CoV-2 NUCLEOCAPSID PROTEINANTIGEN, AND THE PATIENT IS INFECTED WITH THE VIRUS AND PRESUMED TO BECONTAGIOUS.A NEGATIVE TEST RESULT FOR THIS TEST MEANS THAT SARS-CoV-2 NUCLEOCAPSID PROTEINANTIGEN WAS NOT PRESENT IN THE SPECIMEN ABOVE THE LIMIT OF DETECTION. HOWEVER, ANEGATIVE RESULT DOES NOT RULE OUT COVID-19 AND SHOULD NOT BE USED THE [facility]LE[facility] FOR TREATMENT OR PATIENT MANAGEMENT DECISIONS. A NEGATIVE RESULT DOES NOTEXCLUDE THE POSSIBILITY OF COVID-19. NEGATIVE RESULTS, FROM PATIENTS WITHSYMPTOM ONSET BEYOND FIVE DAYS, SHOULD BE TREATED PRESUMPTIVE ANDCONFIRMATION WITH A MOLECULAR ASSAY, IF NECESSARY, FOR PATIENT MANAGEMENT, MAYBE PERFORMED.WHEN DIAGNOSTIC TESTING IS NEGATIVE, THE POSSIBLILTY OF A FALSE NEGATIVE RESULTSHOULD BE CONSIDERED IN THE CONTEXT OF A PATIENT'S RECENT EXPOSURES AND THEPRESENCE OF CLINICAL SIGNS AND SYMPTOMS CONSISTENT WITH COVID-19. THEPOSSIBILITY OF A FALSE NEGATIVE RESULT SHOULD ESPECIALLY BE CONSIDERED IF THEPATIENT'S RECENT EXPOSURES OR CLINICAL PRESENTATION INDICATE THAT COVID-19 ISLIKELY, AND DIAGNOSTIC TESTS FOR OTHER CAUSES OF ILLNESS (e.g., OTHERRESPIRATORY ILLNESS) ARE NEGATIVE. IF COVID-19 IS STILL SUSPECTED BASED ONEXPOSURE HISTORY TOGETHER WITH OTHER CLINICAL FINDINGS, RE-TESTING SHOULD BECONSIDERED BY HEALTHCARE PROVIDERS IN CONSULTATION WITH PUBLIC [facility]. Performed By: #### 2 31338 ####[facility],[address] [place], [place] [id number] ED MED ADMINISTRATION DETAIL on 03-11-2025 ED MED ADMINISTRATION DETAIL Normal [facility] ED NURSES CLINICAL NOTEon ED NURSES CLINICAL NOTE Normal J l [facility] ED ORDER SHEET ([facility]OE ONLY)on 03-11-2025 ED ORDER SHEET (CPOE ONLY) Normal [facility] ED PHYSICIAN CLINICAL REPORT on 03-11-2025 ED PHYSICIAN CLINICAL REPORT Normal [facility] ED SUPER BILLon 03-11-2025 ED SUPER BILL Normal [facility] ED VISIT SUMMARYon ED VISIT SUMMARY Normal [facility] ED VITALS FLOW SHEETon 03-11 ED VITALS FLOW SHEET Normal [facility] VBGon 03-11-2025 vBE -2 mmol/L Normal -2 - 3 [facility] Comment on above: Performed By: #### 2 42823 ####[facility],[address] [place] [address] 53199 vHCO3 23 mmol/L Normal 23 - 28 [facility] Comment on above: Performed By: #### 2 27538 ####[facility],[address] [place] [address] 77199 vpCO2 37 mmHg Low 41 - 51 [facility] Comment on above: Performed By: #### 2 34066 ####[facility],[address] [place] [address] 85752 vpH 7.40 Normal 7.31 - 7.41 [facility] Comment on above: Performed By: #### 2 25741 ####[facility],[address] [place] [address] [place] [address] vpO2 44 mmHg Normal [facility] Comment on above: Performed By: #### 2 33777 ####[facility],[address] [place] [address] [place] [address] vsO2 80 % Normal [facility] Comment on above: Performed By: #### 2 31772 ####[facility],[address] [place] [address] 45752 Internal Medicine Office Vis iton 03-08-2025 Internal Medicine Office Visit [facility] [address] [place] [address] [address] [place], [place] [address] OFFICE VISIT Date of Service: 03/08/25 MR#: [id number] Acct: [id number] Name: JESSICA ACUNA Rep #: [id number] : 1995 Provider: JUDD kemp Age/Sex: 30/F Location: [facility] [place] [facility] Status: Signed Intake Vital Signs 07/30/24 11:22 02/26/25 12:37 03/08/25 15:00 Height 5 ft 6 in 5 ft 6 in 5 ft 6 in Weight: 327 lb 4 oz BMI 52.8 BP 148/88 H Blood Pressure Location Lt brachial Position Sitting Respiration 16 Pulse 102 H Pulse Source Monitor Temp 97.1 F L Temp Source Temporal Pulse Oximetry (%) 100 Oxygen Delivery Method room air 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 Required: No Accompanied by: Self Is patient in pain?: No Allergies Penicillins Allergy (Verified 03/08/25 14:54) rash Medications ???Medication ???Instructions ???Recorded ???Confirmed ???Type levonorgestrel (Mirena) 1 insert intrauterine ONCE 2 03/08/25 History albuterol sulfate 2.5 mg/3 mL 2.5 mg (3 mL) inhalation Q4H PRN 0 12/21/22 03/08/25 Rx (0.083 %) solution for nebulization shortness of breath or wheezing #180 mL albuterol sulfate 90 mcg/actuation 1 puff inhalation Q6H #8.5 grams 12/21/22 03/08/25 Rx aerosol inhaler (Ventolin HFA) Nebulizer machine #1 ea 06/18/24 03/08/25 Rx fluticasone furoate 200 1 inh inhalation DAILY #60 ea 11/0403/08/25 Rx mcg-vilanterol 25 mcg/dose inhalation powder (Breo Ellipta) ondansetron 4 mg disintegrating 4 mg PO Q6H PRN nausea and 5 03/08/25 Rx tablet vomiting #20 tabs dicyclomine 20 mg tablet 20 mg PO TID PRN abdominal 5 03/08/25 Rx cramping #30 tabs duloxetine 60 mg capsule,delayed 60 mg PO DAILY #90 caps 03/08/25 0 03/08/25 Rx release losartan 50 mg-hydrochlorothiazide 1 tab PO DAILY #90 tabs 03/08/25 03/08/25 Rx 12.5 mg tablet trazodone 50 mg tablet 50 mg PO QHS #60 tabs 03/08/2503/27 Rx Patient : No Have you fallen in the past year?: No Nurse's Note: having stomach issues diagnosed with colitis at [facility] had ct scan and seen in er [facility] Medical History (Updated 03/08/25 @ 15:59 by JUDD Bernard) Depression PCOS (polycystic ovarian syndrome) Hypertension Anxiety Colitis Non-smoker COVID-19 affecting childbirth GERD (gastroesophageal reflux disease) Leukocytosis Environmental allergies Allergic rhinitis LUCY (obstructive sleep apnea) Surgical History S/P cholecystectomy History of tonsillectomy History of foot surgery Family History Father CVA (cerebral vascular accident) Mother Intrinsic asthma Grandfather Diabetes COPD (chronic obstructive pulmonary disease) Social History Smoking Status: Never smoker alcohol intake: never substance use type: does not use caffeine: Yes what type of physical activity do you participate in: none seatbelt use: always do you feel safe at home: Yes HPI HPI Chief Complaint: establishing Details: JESSICA ACUNA, is a 30 F who presents to the office today ---- To establish care with a new provider and address acute and chronic concerns. Recently patient was seen at [facility] in [place] with a CT scan that showed colitis patient also has a right ovarian cyst. Patient complains of recurring abdominal pain frequently needing to move her bowels after eating pain is worse on the right lower quadrant patient states she feels a heaviness in the right lower quadrant of her abdomen. She did talk to her [employer] about the ovarian cysts however the [employer] provider would like her to have her bowels examined first to rule out other possible causes of the pain and discomfort and due to the patient's symptoms after eating and needing to have a bowel movement soon after eating frequently. Patient also has a history of anxiety and depression she is currently taking duloxetine and still feels that she is having more anxiety than usual having difficulty sleeping as well as continuing to worry about small things. Patient has a history of hypertension states she does monitor her blood pressure at home and that usually it is in a good range however she does notice when she is anxious or in pain her blood pressure does increase patient also has a history of asthma and sees pulmonology for follow-up. ROS Const Constitutional: Positive for abnormal sleep pattern; No body ache, excessive sweating, fatigue, fever(s), frequent falls, headache(s) (more content not included)... Normal [facility] Abdomen/Pelvis W IV Cont ONL Yon 02-26-2025 Abdomen/Pelvis W IV Cont ONLY [facility] Imaging Services [address] [place] [address] Abdomen/Pelvis W IV Cont ONLY MR#: [id number] Acct: [id number] Name: JESSICA ACUNA Rep #: [id number] : 1995 F 30 From: Familia krueger MD PCP: JUDD Bernard Status: REG ER Study: Abdomen/Pelvis W IV Cont ONLY Date of Exam: Exam# [id number] Ordering Dr: Nino Sánchez DO PROCEDURE: ABDOMEN/PELVIS W IV CONT ONLY 02/26/2025 REASON FOR EXAM: RLQ ABD PAIN Left lower quadrant and right flank pain. TECHNIQUE: Abdomen and pelvis CT with intravenous contrast. Coronal and Sagittal reconstruction series were provided. PATIENT PREPARATION: Per protocol ORAL CONTRAST TYPE: None. CONTRAST: Isovue-300 VOLUME: 100 mL One or more dose reduction techniques were used (e.g., Automated exposure control, adjustment of the mA and/or kV according to patient size, use of iterative reconstruction technique. RADIATION DOSE SUMMARY: CTDlvol: 19 mGy DLP: 1498.81 mGycm COMPARISON: None FINDINGS: Lung bases: Unremarkable Liver: Normal size. No mass. Gallbladder: Surgically absent. Spleen: Normal size. Pancreas: Normal size without evidence of mass surrounding inflammation or ductal dilation. Adrenals: Unremarkable Kidneys: Normal renal sizes. No hydronephrosis. Bladder: Unremarkable Reproductive Organs: There is a 4 cm x 4.2 cm right ovarian cyst. IUD is seen within the uterus. Small follicles are seen in the left ovary. Bowel: Unremarkable. Appendix: The appendix is not identified. There is no inflammatory process identified in the right lower quadrant to suggest appendicitis. Lymph nodes: Unremarkable. Vasculature: The abdominal aorta and IVC are normal. Peritoneum / Retroperitoneum: Unremarkable Bones: Unremarkable. CT/Abdomen/Pelvis W IV Cont ONLY IMPRESSION: Status post cholecystectomy. 4 cm x 4.2 cm right ovarian cyst. IUD seen within the uterus. OVERALL FINAL ASSESSMENT: . LI-RADS is not meant to be used in patients <18 years or patients with cirrhosis due to congenital hepatic fibrosis or due to vascular disorders, because these patients have a lower chance of developing HCC. Reading Location: [place] [address] CC: JUDD Núñez; Dr. Nino Sánchez DO Cooler Servicer: Signed Normal [facility] Absolute lymphocyte countOrd ered By: Nino Sánchez on 02-26-2025 Lymphocytes Auto (Unsp spec) [#/Vol] 1.76 10*3/uL 0.83-4.51 [facility] Absolute neutrophil countOrd ered By: Nino Sánchez on 02-26-2025 Neutrophils (Bld) [#/Vol] 6.7 10*3/uL 2.0-7.7 [facility] Anion gap in Serum or Plasma Ordered By: Nino Sánchez on 02-26-2025 Anion gap [Moles/Vol] 12 mmol/L - [facility] Automated blood erythrocyte countOrdered By: Nino Sánchez on 02-26-2025 RBC (Bld) [#/Vol] 5.52 10*6/uL High 4.2-5.4 [facility] Comment on above: Performed By: #### L 700.6800, L500.4050, L100.0100, L501.2450 #### [facility] [address] [place], [address] Automated blood hematocrit ( percentage)Ordered By: Nino Sánchez on 02-26-2025 Hematocrit (Bld) [Volume fraction] 46.6 % 37-47 [facility] Comment on above: Performed By: #### L 700.6800, L500.4050, L100.0100, L501.2450 #### [facility] [address] [place], [place], [id number] Automated lymphocyte count a s percentage of total leukocytesOrdered By: Nino Sánchez on 02-26-2025 Lymphocytes/100 WBC Auto (Unsp spec) 18.8 % Low 19-41 [facility] BUN/creatinine ratioOrdered By: Nino Sánchez on 02-26-2025 Urea nitrogen/Creatinine [Mass ratio] 16.1 mg/mg 10-20 [facility] Basophil percentageOrdered B y: Nino Sánchez on 02-26-2025 Basophils/100 WBC (Bld) 0.7 % 0-1 [facility] Comment on above: Performed By: #### L 700.6800, L500.4050, L100.0100, L501.2450 #### [facility] [address] [place], [place], [id number] Bilirubin Test strip Ql (U)O rdered By: Nino Sánchez on 02-26-2025 Bilirubin Ql (U) Negative Negative [facility] Bilirubin, totalOrdered By: Nino Sánchez on 02-26-2025 Bilirubin [Mass/Vol] 0.32 mg/dL 0.00-1.30 [facility] Comment on above: Performed By: #### L 700.6800, L500.4050, L100.0100, L501.2450 #### [facility] [address] [place], [address] CBC W/Diff, Automatedon 05-5 Absolute Lymph 1.76 X10 3/uL Normal 0.83-4.51 [facility] Comment on above: Performed By: #### L 700.6800, L500.4050, L100.0100, L501.2450 #### [facility] [address] [place], [address] Absolute Neut 6.7 X10 3/uL Normal 2.0-7.7 [facility] Comment on above: Performed By: #### L 700.6800, L500.4050, L100.0100, L501.2450 #### [facility] [address] [place], [address] IG% 0.200 Normal 0.0-0.9 [facility] Comment on above: Result Comment: IG% - Immature Granulocytes (promyelocytes, myelocytes and metamyelocytes) > 1% indicates that a LEFT SHIFT is Present. Performed By: #### L 700.6800, L500.4050, L100.0100, L501.2450 #### [facility] [address] [place], [address] Lymphocytes/100 WBC (Bld) 18.8 % Low 19-41 [facility] Comment on above: Performed By: #### L 700.6800, L500.4050, L100.0100, L501.2450 #### [facility] [address] [place], [address] Nucleated RBC (Bld) [#/Vol] 0 10*3/uL Normal 0-5 [facility] Comment on above: Performed By: #### L 700.6800, L500.4050, L100.0100, L501.2450 #### [facility] [address] [place], [address] RDW SD 37.8 fl Normal 35.1-43.9 [facility] Comment on above: Performed By: #### L 700.6800, L500.4050, L100.0100, L501.2450 #### [facility] [address] [place], [address] Carbon dioxide, total [Moles /volume] in Central venous bloodOrdered By: Nino Sánchez on 02-26-2025 CO2 [Moles/Vol] 20.6 mmol/L Low 21.0-32.0 [facility] Comment on above: Performed By: #### L 700.6800, L500.4050, L100.0100, L501.2450 #### [facility] [address] [place], [address] Chloride assayOrdered By: James Sánchez on 02-26-2025 Chloride [Moles/Vol] 103 mmol/L 98-108 [facility] Comment on above: Performed By: #### L 700.6800, L500.4050, L100.0100, L501.2450 #### [facility] [address] [place], [address] Comprehensive Metabolic Prof ilon 02-26-2025 ALK PHOS 103 U/L Normal 35-104 [facility] Comment on above: Performed By: #### L 700.6800, L500.4050, L100.0100, L501.2450 #### [facility] [address] [place], [address] BUN/CRE 16.1 RATIO Normal 10-20 [facility] Comment on above: Performed By: #### L 700.6800, L500.4050, L100.0100, L501.2450 #### [facility] [address] [place], [address] ECRCL 183.19 ml/min Normal 50-250 [facility] Comment on above: Performed By: #### L 700.6800, L500.4050, L100.0100, L501.2450 #### [facility] [address] [place], [address] GAP 12 Normal 5-15 [facility] Comment on above: Performed By: #### L 700.6800, L500.4050, L100.0100, L501.2450 #### [facility] [address] [place], [address] Potassium [Moles/Vol] 4.0 mmol/L Normal 3.3-5.1 [facility] Comment on above: Performed By: #### L 700.6800, L500.4050, L100.0100, L501.2450 #### [facility] [address] [place], [address] T PROT 7.5 g/dL Normal 5.9-8.4 [facility] Comment on above: Performed By: #### L 700.6800, L500.4050, L100.0100, L501.2450 #### [facility] [address] [place], [address] Comprehensive Metabolic Prof ilOrdered By: Nino Sánchez on 02-26-2025 AST [Catalytic activity/Vol] 16 U/L <32 [facility] Comment on above: Performed By: #### L 700.6800, L500.4050, L100.0100, L501.2450 #### [facility] [address] [place], [address] Emergency Department Summary on 02-26-2025 Emergency Department Summary [facility] Medical Records Department [address] [place] [address] Emergency Department Summary 02/26/25 MR#: [id number] Acct: [id number] Name: JESSICA ACUNA Rep #: [id number] : 1995 30 From: Nino Sánchez DO PCP: JUDD Bernard Status:REG ER Location: ED HPI History of Present Illness Chief Complaint: Abd Pain Narrative Narrative: Patient is a 30-year-old female with past medical history of GERD, LUCY, asthma who presents to the emerged part with chief complaint of abdominal pain diarrhea and vomiting. She states that her symptoms started earlier today. Patient denies recent contacts. She rates her pain a 7 out of 10 in the right lower portion of her abdomen. Patient denies any history kidney stones. Patient states that she has had her gallbladder out and is passing gas. [facility] Medical History Non-smoker COVID-19 affecting childbirth GERD (gastroesophageal reflux disease) Leukocytosis Environmental allergies Allergic rhinitis LUCY (obstructive sleep apnea) Home Medications ???Medication ???Instructions ???Recorded ???Last Taken ???Type levonorgestrel (Mirena) 1 insert intrauterine ONCE 2 Unknown History albuterol sulfate 2.5 mg/3 mL 2.5 mg (3 mL) inhalation Q4H PRN 0 12/21/22 Unknown Rx (0.083 %) solution for nebulization shortness of breath or wheezing #180 mL albuterol sulfate 90 mcg/actuation 1 puff inhalation Q6H #8.5 grams 12/21/22 Unknown Rx aerosol inhaler (Ventolin HFA) Nebulizer machine #1 ea 06/18/24 Unknown Rx fluticasone furoate 200 1 inh inhalation DAILY #60 ea 11/04 03/27 Unknown Rx mcg-vilanterol 25 mcg/dose inhalation powder (Breo Ellipta) dicyclomine 20 mg tablet 20 mg PO TID #30 tabs 02/26/25 Unk nown Rx duloxetine 60 mg capsule,delayed 60 mg PO DAILY 02/26/25 Unknown Hi story release losartan 50 mg-hydrochlorothiazide 1 tab PO DAILY 02/26/25 Unknown History 12.5 mg tablet ondansetron 4 mg disintegrating 4 mg PO Q6H PRN nausea and 5 Unknown Rx tablet vomiting #20 tabs Allergy/AdvReac Type Severity Reaction Status Date / Time Penicillins Allergy rash Verified 02/26/25 12:39 Family History Father CVA (cerebral vascular accident) Mother Intrinsic asthma Grandfather Diabetes COPD (chronic obstructive pulmonary disease) Surgical History S/P cholecystectomy History of tonsillectomy History of foot surgery Social History Smoking Status: Never smoker alcohol intake: never substance use type: does not use caffeine: Yes what type of physical activity do you participate in: none seatbelt use: always do you feel safe at home: Yes ROS ROS ED ROS Narrative Constitutional: Complains of fever at home of 100.1 denies lightheadedness or dizziness Cardiovascular: Denies chest pain Respiratory: Denies coughing denies any sputum production Abdomen: Complains of abdominal pain nausea vomiting diarrhea as noted above : Denies urinary symptoms Neurological: Denies any numbness, weakness, tingling Musculoskeletal: complains of some right flank pain Skin: Denies any rashes or lesions EXAM Physical Exam Narrative Exam Narrative: General: Patient lying in bed rest comfortably did not appear to be acute distress Head: Atraumatic, normocephalic Eyes: PERRL bilaterally, EOMI bilaterally, no conjunctival injection noted Neck: Soft, supple, trachea midline Cardiovascular: Regular rate and rhythm Respiratory: Clear to auscultation bilaterally Abdomen: Soft, nondistended, mild tenderness palpation the right lower quadrant no rebound or guarding on exam Extremities: +5/5 strength noted in the bilateral upper and lower extremities, radial pulses +2/4 in the bilateral extremities Neurological: Patient following commands knew that she was at [facility] year is 2024 Skin: Warm, dry, intact no rashes or lesions noted Const Vital Signs: 02/26/25 12:37 02/26/25 14:42 Temperature 98.3 F Temperature Source Oral Pulse Rate 83 Respiratory Rate 82 H 16 Blood Pressure 140/122 H 147/112 H Blood Pressure Mean 128 123 Pulse Ox 100 100 Oxygen Delivery Method Room Air Room Air MDM MDM MDM Narrative Medical decision making narrative: Patient is a 30-year-old female who presented to the emerged part with chief complaint of abdominal pain. On the differential diagnosis includes but not limited to UTI, pyelonephritis, appendicitis, bowel obstruction, viral gastroenteritis. Once workup is obtained reviewed she will be reevaluated. Patient be given IV fluids and Bentyl. Pat (more content not included)... Normal [facility] Eosinophil percentageOrdered By: Nino Sánchez on 02-26-2025 Eosinophils/100 WBC (Bld) 3.2 % 0-5 [facility] Comment on above: Performed By: #### L 700.6800, L500.4050, L100.0100, L501.2450 #### [facility] [address] [place], [place], [id number] Erythrocyte distribution wid th ratioOrdered By: Nino Sánchez on 02-26-2025 Erythrocyte distribution width (RBC) [Ratio] 12.3 % 11.6-14.6 [facility] Comment on above: Performed By: #### L 700.6800, L500.4050, L100.0100, L501.2450 #### [facility] [address] [place], [place], [id number] Erythrocyte distribution wid th standard deviationOrdered By: Nino Sánchez on 02-26-2025 Erythrocyte distribution width (RBC) [Ratio] 37.8 fl 35.1-43.9 [facility] Glomerular filtration rate ( GFR) estimation/1.73 sq m using serum, plasma, or whole bOrdered By: Nino Sánchez on 02-26-2025 GFR/1.73 sq M.predicted among non-blacks MDRD (S/P/Bld) [Vol rate/Area] 120 mL/min/{1.73_m2} >60 [facility] Comment on above: mL/min/1.73m2 CKD-EP I Creatinine Equation (2020) Result Comment: mL/m in/1.73m2 CKD-EPI Creatinine Equation (2020) Performed By: #### L 700.6800, L500.4050, L100.0100, L501.2450 #### [facility] [address] [place], [place], [id number] Hemoglobin measurementOrdere d By: Nino Sánchez on 02-26-2025 Hemoglobin (Bld) [Mass/Vol] 16.1 g/dL High 12.0-15.0 [facility] Comment on above: Performed By: #### L 700.6800, L500.4050, L100.0100, L501.2450 #### [facility] [address] [place], [address] Immature granulocytes/100 WB C Auto (Bld)Ordered By: Nino Sánchez on 02-26-2025 Immature granulocytes/100 WBC (Bld) 0.200 % 0.0-0.9 [facility] Comment on above: IG% - Immature Granu locytes (promyelocytes, myelocytes and metamyelocytes) > 1% indicates that a LEFT SHIFT is Present. Ketones Test strip Ql (U)Ord ered By: Nino Sánchez on 02-26-2025 Ketones Ql (U) Negative Negative [facility] Lipase measurementOrdered By : Nino Sánchez on 02-26-2025 Lipase [Catalytic activity/Vol] 33 U/L 13-75 [facility] Comment on above: Please note:LIPASE r evised reference range effective 23. New Lipase methodology. Expected to produce lower values than the previous assay method. NEW Reference Range: 13 - 75 U/L Result Comment: Plea note: LIPASE revised reference range effective 23. New Lipase methodology. Expected to produce lower values than the previous assay method. NEW Reference Range: 13 - 75 U/L Performed By: #### L 700.6800, L500.4050, L100.0100, L501.2450 ####[facility] [address] [place], [address] MCV (mean corpuscular volume ) determinationOrdered By: Nino Sánchez on 02-26-2025 MCV (RBC) [Entitic vol] 84.4 fL 81-99 [facility] Comment on above: Performed By: #### L 700.6800, L500.4050, L100.0100, L501.2450 #### [facility] [address] [place], [address] Mean corpuscular hemoglobin (MCH) determinationOrdered By: Nino Sánchez on 02-26-2025 MCH (RBC) [Entitic mass] 29.2 pg 27.0-32.0 [facility] Comment on above: Performed By: #### L 700.6800, L500.4050, L100.0100, L501.2450 #### [facility] [address] [place], [place], [id number] Mean corpuscular hemoglobin concentration (MCHC) determinationOrdered By: Nino Sánchez on 02-26-2025 MCHC (RBC) [Mass/Vol] 34.5 g/dL 32-36 [facility] Comment on above: Performed By: #### L 700.6800, L500.4050, L100.0100, L501.2450 #### [facility] [address] [facility] [place], [address] Mean platelet volume determi nationOrdered By: Nino Sánchez on 02-26-2025 Platelet mean volume (Bld) [Entitic vol] 10.2 fL 6.2-12.0 [facility] Comment on above: Performed By: #### L 700.6800, L500.4050, L100.0100, L501.2450 #### [facility] [address] [facility] [place], [place], [id number] Microscopic analysis of urin e for red blood cells (RBC)Ordered By: Nino Sánchez on 02-26-2025 Microscopic analysis of urine for red blood cells (RBC) 0-5 SEEN /hpf 0-5 [facility] Monocyte percentageOrdered B y: Nino Sánchez on 02-26-2025 Monocytes/100 WBC (Bld) 5.7 % 0-10 [facility] Comment on above: Performed By: #### L 700.6800, L500.4050, L100.0100, L501.2450 #### [facility] [address] [place], [place], [id number] Mucus LM Ql (Urine sed)Order ed By: Nino Sánchez on 02-26-2025 Mucus Ql (Urine sed) 0 SEEN /hpf [facility] Neutrophil percentageOrdered By: Nino Sánchez on 02-26-2025 Neutrophils/100 WBC (Bld) 71.4 % High 47-70 [facility] Comment on above: Performed By: #### L 700.6800, L500.4050, L100.0100, L501.2450 #### [facility] [address] [place], [address] Nitrite Test strip Ql (U)Ord ered By: Nino Sánchez on 02-26-2025 Nitrite Ql (U) Negative Negative [facility] Nucleated red blood cell per centageOrdered By: Nino Sánchez on 02-26-2025 Nucleated RBC/100 WBC (Bld) [Ratio] 0 % 0-5 [facility] Platelet countOrdered By: James Sánchez on 02-26-2025 Platelets (Bld) [#/Vol] 286 10*3/uL 150-450 [facility] Comment on above: Performed By: #### L 700.6800, L500.4050, L100.0100, L501.2450 #### [facility] [address] [place], [address] Potassium measurement (mass/ volume)Ordered By: Nino Sánchez on 02-26-2025 Potassium (Unsp spec) [Mass/Vol] 4.0 mmol/L 3.3-5.1 [facility] ,Serum,hCG Quali.on 02-26-2025 HCG, SERUM QUAL Negative Normal [facility] Comment on above: Performed By: #### L 700.6800, L500.4050, L100.0100, L501.2450 #### [facility] [address] [place], [address] Protein Test strip Ql (U)Ord ered By: Nino Sánchez on 02-26-2025 Protein Ql (U) 15 mg/dl High Negative [facility] Serum beta-hCG test, qualita tiveOrdered By: Nino Sánchez on 02-26-2025 Beta HCG ( test) Ql Negative [facility] Serum creatinine measurement (mass/volume)Ordered By: Nino Sánchez on 02-26-2025 Creatinine [Mass/Vol] 0.67 mg/dL Low 0.70-1.20 [facility] Comment on above: Performed By: #### L 700.6800, L500.4050, L100.0100, L501.2450 #### [facility] [address] [place], [address] Serum globulin measurementOr dered By: Nino Sánchez on 02-26-2025 Globulin (S) [Mass/Vol] 3.2 g/dL 2.2-4.2 [facility] Comment on above: Performed By: #### L 700.6800, L500.4050, L100.0100, L501.2450 #### [facility] [address] [place], [address] Serum glucose measurement (m ass/volume)Ordered By: Nino Sánchez on 02-26-2025 Glucose [Mass/Vol] 100 mg/dL High 70-99 [facility] Comment on above: Performed By: #### L 700.6800, L500.4050, L100.0100, L501.2450 #### [facility] [address] [place], [address] Serum or plasma alanine lynch otransferase (ALT) measurementOrdered By: Nino Sánchez on 02-26-2025 ALT [Catalytic activity/Vol] 21 U/L <35 [facility] Comment on above: Performed By: #### L 700.6800, L500.4050, L100.0100, L501.2450 #### [facility] [address] [place], [address] Serum or plasma albumin elizabeth urement (mass/volume)Ordered By: Nino Sánchez on 02-26-2025 Albumin [Mass/Vol] 4.3 g/dL 3.5-5.0 [facility] Comment on above: Performed By: #### L 700.6800, L500.4050, L100.0100, L501.2450 #### [facility] [address] [place], [address] Serum or plasma albumin/glob ulin mass ratioOrdered By: Nino Sánchez on 02-26-2025 Albumin/Globulin [Mass ratio] 1.3 {ratio} 0.9-2.4 [facility] Comment on above: Performed By: #### L 700.6800, L500.4050, L100.0100, L501.2450 #### [facility] [address] [place], [address] Serum or plasma alkaline abilio sphatase measurementOrdered By: Nino Sánchez on 02-26-2025 ALP [Catalytic activity/Vol] 103 U/L 35-104 [facility] Serum or plasma calcium elizabeth urement (mass/volume)Ordered By: Nino Sánchez on 02-26-2025 Calcium [Mass/Vol] 9.3 mg/dL 7.6-11.0 [facility] Comment on above: Performed By: #### L 700.6800, L500.4050, L100.0100, L501.2450 #### [facility] [address] [place], [address] Serum or plasma urea nitroge n measurement (mass/volume)Ordered By: Nino Sánchez on 02-26-2025 Urea nitrogen [Mass/Vol] 11 mg/dL 4-19 [facility] Comment on above: Performed By: #### L 700.6800, L500.4050, L100.0100, L501.2450 #### [facility] [address] [place], [address] Sodium levelOrdered By: Abiola Sánchez on 02-26-2025 Sodium [Moles/Vol] 136 mmol/L 133-145 [facility] Comment on above: Performed By: #### L 700.6800, L500.4050, L100.0100, L501.2450 #### [facility] [address] [place], [address] Squamous epithelial cells de tection in urine sediment by light microscopyOrdered By: Nino Sánchez on 02-26-2025 Epithelial cells.squamous LM Ql (Urine sed) 0 SEEN /hpf 5-10 [facility] Total proteinOrdered By: Samuel Sánchez on 02-26-2025 Protein [Mass/Vol] 7.5 g/dL 5.9-8.4 [facility] Urinalysis, Completeon 02-26 WBC 0-5 SEEN Normal 0-5 [facility] Comment on above: Order Comment: MARVIN CTOR TO SPECIFY Performed By: #### L 400.0001 #### [facility] [address] [place], [address] RBC 0-5 SEEN Normal 0-5 [facility] Comment on above: Order Comment: MARVIN CTOR TO SPECIFY Performed By: #### L 400.0001 #### [facility] [address] [place], [address] BACTERIA 0 SEEN Normal None Seen [facility] Comment on above: Order Comment: MARVIN CTOR TO SPECIFY Performed By: #### L 400.0001 #### [facility] [address] [place], [address] EPI,SQUAMOUS 0 SEEN Normal 5-10 [facility] Comment on above: Order Comment: MARVIN CTOR TO SPECIFY Performed By: #### L 400.0001 #### [facility] [address] [place], [address] Mucus Ql (Urine sed) 0 SEEN Normal [facility] Comment on above: Order Comment: MARVIN CTOR TO SPECIFY Performed By: #### L 400.0001 #### [facility] [address] [place], [address] Urine clarityOrdered By: Samuel Sánchez on 02-26-2025 Clarity (U) Clear Clear [facility] Urine color determinationOrd ered By: Nino Sánchez on 02-26-2025 Color (U) Yellow Yellow [facility] Urine glucose detectionOrder ed By: Nion Sánchez on 02-26-2025 Glucose Ql (U) Normal mg/dl Normal [facility] Urine leukocyte esterase det ection by dipstickOrdered By: Nino Sánchez on 02-26-2025 Leukocyte esterase Test strip Ql (U) Negative Negative [facility] Urine pHOrdered By: Nino ralph on 02-26-2025 pH (U) 6.0 [pH] 5.0 - 8.0 [facility] Urine sediment bacteria coun t by microscopy (number/high power field)Ordered By: Nino Sánchez on 02-26-2025 Bacteria LM.HPF (Urine sed) [#/Area] 0 /[HPF] None Seen [facility] Urine specific gravity measu rementOrdered By: Nino Sánchez on 02-26-2025 Specific gravity (U) [Rel density] 1.020 1.002-1.030 [facility] Urine urobilinogen measureme ntOrdered By: Nino Sánchez on 02-26-2025 Urobilinogen Ql (U) Normal mg/dl Normal [facility] White blood cell (WBC) count Ordered By: Nino Sánchez on 02-26-2025 WBC (Bld) [#/Vol] 9.4 10*3/uL 4.4-11.0 [facility] Comment on above: Performed By: #### L 700.6800, L500.4050, L100.0100, L501.2450 #### [facility] [address] [place] [address]. [place], [address] White blood cell countOrdere d By: Nino Sánchez on 02-26-2025 White blood cell count 0-5 SEEN /hpf 0-5 [facility] EMERGENCY DEPARTMENTon 02-23 EMERGENCY DEPARTMENT [address] [address] HEALTH INFORMATION MANAGEMENT EMERGENCY DEPARTMENT : [phone] Signed with [place] Patient: MARI ACUNALEY Lilibeth Acct:[id number] MR UN: [id number] : 1995 Sex: F Loc: ED ADM Date: Room/Bed: DISC Date: 02/03/25 ____ ADDENDUM------ ---- The CT of the abdomen and pelvis without contrast did display evidence of a 3.5 cm right ovarian cyst. Clinical impression 3. Right ovarian cyst patient encouraged to follow up with Gynecology. Patient discharged hemodynamically stable. Patient did receive Toradol 30 mg IV, and one Percocet 5/325 orally prior to discharge. Addendum: Signed Date/Time: 02/03/252109 Co-Signed: Co-signed Date/Time 02/23/25 0849 History of Present Illness - General Source: Patient - History of Present Illness MD Complaint: abdominal pain -: days(s) Location: periumbilical Radiation: none - General Chief Complaint: Abdominal/GI Complaints Stated Complaint: ABD PAIN Time Seen by Provider: 02/03/25 18:13 - History of Present Illness Initial Comments: 30-year-old female with a history of obesity, hypertension, asthma, history of cholecystectomy presented to the ER with complaints of right-sided abdominal pain and periumbilical abdominal pain for last three days. The patient has been taking ibuprofen for pain control, complaints of nausea. She denies any chills, she has chronic diarrhea. She denies any fever. (SIMBA ABRAHAM) - Related Data Allergies Allergy/AdvReac Type Severity Reaction Status Date / Time Penicillins Allergy Unknown Verified 12/13/24 16:51 Review of System - All Others/Exceptions All Other Systems: Reviewed and Negative Except Where Noted in Documentation ED PMH/Social HX/Family HX - Social History Able to Read: No Able to Write: No Smoking Status: Never Smoked Hx Chewing Tobacco Use: No - Clio/Gender ID What is your current Gender Identity? Choose all that Apply: Female Define your Sexual Orientation?: Straight/Heterosexual General Exam - Head Head exam: Present: atraumatic, normocephalic, normal inspection - Eye Eye exam: Present: normal apperance, normal accomodation, EOMI Pupils: Present: PERRL - ENT ENT exam: Present: normal orophraynx, mucous membranes moist, TMs clear w/ good light reflex, normal external ear exam, No Nasal Discharge, Posterior Pharynx Non-erethemetous - Neck Neck exam: Present: full ROM, Supple. Absent: tenderness, meningismus, Posterior Lymphadenopathy, Anterior Lymphadenopathy - Respiratory Respiratory exam: Present: lungs clear and equal bilaterally. Absent: respiratory distress, wheezes, rales, rhonchi, accessory muscle use - Cardiovascular Cardiovascular Exam: Present: regular rate, normal rhythm, normal heart sounds. Absent: murmur, rubs, gallop, clicks - GI/Abdominal GI/Abdominal exam: Present: soft, tenderness ( Right upper quadrant and periumbilical region. No rebound tenderness.) - Extremities Exam Extremities exam: Present: normal inspection, neurovascularly intact, full ROM, normal/equal pulses - Back Exam Back exam: Present: normal inspection, full ROM. Absent: tenderness - Neurological Exam Neurological exam: Present: alert, oriented X3, CN II-XII intact - Psychiatric Psychiatric exam: Present: normal affect, normal mood - Skin Skin Color: Present: Normal, [place] Skin exam: Present: warm, dry - Vital Signs Vital Signs 02/03/25 18:08 Temperature 98.5 F Pulse Rate [ 77 Pulse Ox] Respiratory 16 Rate Blood Pressure 171/94 H [Left Forearm] O2 Sat by Pulse 98 Oximetry(%) Abdominal pain MDM - Lab Data Result diagrams: 02/03/25 18:30 - Lab Data Result diagrams: 02/03/25 18:30 02/03/25 18:15 - Lab Data Lab Results 02/03/25 02/03/25 02/03/25 Range/Units 18:15 18:15 18:30 WBC (3.6-10.8) K/uL RBC (3.83-5.19) M/uL Hgb (11.1-13.7) g/dL Hct (33.4-46.0) % MCV (81.0-99.0) fL MCH (27.0-31.0) pg MCHC (33.0-37.0) g/dL RDW (11.5-14.5) % Plt Count (148-402) K/uL MPV (7.4-10.4) fL Neut % (Auto) (43.0-65.0) % Lymph % (Auto) (17.0-45.5) % [place] % (Auto) (5.5-11.7) % Eos % (Auto) (0.9-2.9) % Baso % (Auto) (0.2-1.0) % Abs Immat Gran (man) (0.00-0.10) K/uL Absolute Neuts (auto) (2.20-4.80) K/uL Absolute Lymphs (auto) (1.30-2.90) K/uL Absolute Monos (auto) (0.30-0.80) K/uL Absolute Eos (auto) (0.00-0.20) K/uL Absolute Basos (auto) (0.00-0.10) K/uL Immature Gran % (0.00-1.00) % Sodium 140 (132-145) mmol/L Potassium 3.6 (3.3-5.1) mmol/L Chloride 106 (94-110) mmol/L Total Carbon Dioxide 28 (21-34) mmol/L (more content not included)... Normal [facility] CBC + DIFFon 02-17-2025 Baso # 0.01 x10EE3/UL Normal 0.00 - 0.10 [facility] Comment on above: Performed By: #### 2 [address]02 ####[place] [address] Basophils/100 WBC (Bld) 0.2 % Normal 0.0 - 2.0 [facility] Comment on above: Performed By: #### 2 96832 ####[place] [address] CBC + DIFF Normal [facility] Comment on above: Result Comment: CBC- COMPLETE BLOOD COUNT Performed By: #### 2 71563 ####[place] [address] EO # 0.34 x10EE3/UL Normal 0.00 - 0.50 [facility] Comment on above: Performed By: #### 2 89429 ####[facility],[address] [place] [address] Eosinophils/100 WBC (Bld) 4.9 % Normal 0.0 - 7.0 [facility] Comment on above: Performed By: #### 2 92892 ####[facility],[address] [place] [address] Erythrocyte distribution width (RBC) [Ratio] 13.2 % Normal 12.0 - 15.6 [facility] Comment on above: Performed By: #### 2 65812 ####[facility],[address] [place] [address] Hematocrit (Bld) [Volume fraction] 42.0 % Normal 34.0 - 46.0 [facility] Comment on above: Performed By: #### 2 57655 ####[facility],[address] [place] [address] Hemoglobin (Bld) [Mass/Vol] 15.0 g/dL Normal 12.0 - 16.0 [facility] Comment on above: Performed By: #### 2 96430 ####[facility],[address] [place] [address]476 Lymph # 1.57 x10EE3/UL Normal 0.80 - 2.80 [facility] Comment on above: Performed By: #### 2 58054 ####[facility],[address] [place] [address]48 Lymphocytes/100 WBC (Bld) 23.0 % Normal 20.0 - 45.0 [facility] Comment on above: Performed By: #### 2 13839 ####[facility],[address] [place] [address]702 MANUAL DIFF N/A Normal [facility] Comment on above: Performed By: #### 2 53135 ####[facility],[address] [place] [address] MCH (RBC) [Entitic mass] 31 pg Normal 27 - 33 [facility] Comment on above: Performed By: #### 2 60450 ####[facility],[address] [place] [address] MCHC 36 X10 3 Normal 32 - 36 [facility] Comment on above: Performed By: #### 2 96414 ####[facility],[address] [place] [address] MCV (RBC) [Entitic vol] 86 fL Normal 80 - 99 [facility] Comment on above: Performed By: #### 2 54166 ####[facility],[address] [place] [address] [place] # 0.25 x10EE3/UL Normal 0.20 - 1.00 [facility] Comment on above: Performed By: #### 2 41887 ####[facility],[address] [place] [address] MONOS % 3.7 % Normal 0.0 - 10.0 [facility] Comment on above: Performed By: #### 2 62281 ####[facility],[address] [place] [address] Morphology Kamlesh (Bld) [Interp] N/A Normal [facility] Comment on above: Performed By: #### 2 61989 ####[facility],[address] [place] [address] Neut # 4.67 x10EE3/UL Normal 1.50 - 7.10 [facility] Comment on above: Performed By: #### 2 94478 ####[facility],[address] [place] [address] Neutrophils/100 WBC (Bld) 68.3 % Normal 46.0 - 76.0 [facility] Comment on above: Performed By: #### 2 58323 ####[facility],[address] [place] [address] PLATELET 260 x10EE3/UL Normal 150 - 450 [facility] Comment on above: Performed By: #### 2 25441 ####[facility],[address] [place] [address] 15742 Platelet mean volume (Bld) [Entitic vol] 8.6 fL Normal 6.6 - 10.5 [facility] Comment on above: Result Comment: AUTO MATED DIFFERENTIAL Performed By: #### 2 81916 ####[facility],[address] [place] [address] 35338 RBC 4.89 x 10EE6/UL Normal 4.10 - 5.30 [facility] Comment on above: Performed By: #### 2 12456 ####[facility],[address] [place] [address] 52735 WBC 6.8 x 10EE3/UL Normal 4.5 - 10.8 [facility] Comment on above: Performed By: #### 2 00187 ####[facility],[address] [place], [place] [address] CMP with eGFRon 02-17-2025 AGE 30 years Normal [facility] Comment on above: Performed By: #### 2 31733 ####[facility],[address] [place] [address]49 Albumin [Mass/Vol] 3.2 g/dL Low 3.4 - 5.0 [facility] Comment on above: Performed By: #### 2 26166 ####[facility],[address] [place] [address]2007 Albumin/Globulin [Mass ratio] 0.9 {ratio} Normal 0.9 - 1.6 [facility] Comment on above: Performed By: #### 2 14488 ####[facility],[address] [place] [address] 87774 ALK PHOS 88 U/L Normal 46 - 116 [facility] Comment on above: Performed By: #### 2 73788 ####[facility],[address] [place] [address] 67079 ALT [Catalytic activity/Vol] 39 U/L Normal 16 - 63 [facility] Comment on above: Performed By: #### 2 13180 ####[facility],[address] [place] [address] 38319 Anion gap [Moles/Vol] 11 mmol/L Normal 10 - 20 [facility] Comment on above: Performed By: #### 2 55209 ####[facility],[address] [place] [address] 00457 AST [Catalytic activity/Vol] 15 U/L Normal 13 - 39 [facility] Comment on above: Performed By: #### 2 49313 ####[facility],[address] [place] [address] 41994 B/C RATIO 16 ratio Normal 0 - 30 [facility] Comment on above: Performed By: #### 2 06535 ####[facility],[address] [place] [address] 63098 Bilirubin [Mass/Vol] 0.3 mg/dL Normal 0.2 - 1.0 [facility] Comment on above: Performed By: #### 2 02145 ####[facility],[address] [place] [address] 03212 Calcium [Mass/Vol] 8.8 mg/dL Normal 8.5 - 10.1 [facility] Comment on above: Performed By: #### 2 74324 ####[facility],[address] [place] [address] 44329 Chloride [Moles/Vol] 105 mmol/L Normal 98 - 107 [facility] Comment on above: Performed By: #### 2 80554 ####[facility],[address] [place] [address] 06646 CMP with eGFR Normal [facility] Comment on above: Result Comment: COMP REHENSIVE METABOLIC PANEL Performed By: #### 2 01488 ####[facility],[address] [place] [address] 88662 CO2 [Moles/Vol] 25.7 mmol/L Normal 21.0 - 32.0 [facility] Comment on above: Performed By: #### 2 54943 ####[facility],[address] [place] [address] 57275 Creatinine [Mass/Vol] 0.75 mg/dL Normal 0.55 - 1.02 [facility] Comment on above: Performed By: #### 2 89809 ####[facility],[address] [place] [address] 77215 GFR/1.73 sq M.predicted among non-blacks MDRD (S/P/Bld) [Vol rate/Area] mL/min/{1.73_m2} Normal 60 - 999 [facility] Comment on above: Performed By: #### 2 83594 ####[facility],[address] [place] [address] 37204 Result Comment: ACCO RDING TO THE NATIONAL KIDNEY DISEASE EDUCATION PROGRAM(NKDE), A NORMAL eGFRIS A VALUE GREATER THAN OR EQUAL TO 60 ML/MIN/1.73 SQ METERS.CHRONIC KIDNEY DISEASE: <60mL/MIN/1.73 SQ METERSKIDNEY FAILURE: <15mL/MIN/1.73 SQ METERSTHIS TEST SHOULD ONLY BE USED FOR PATIENTS 18 YEARS OF AGE AND OLDER. Globulin (S) [Mass/Vol] 3.6 g/dL Normal 1.5 - 3.8 [facility] Comment on above: Performed By: #### 2 49996 ####[facility],[address] [place] [address] 94249 Glucose [Mass/Vol] 100 mg/dL Normal 74 - 106 [facility] Comment on above: Performed By: #### 2 79408 ####[facility],[address] [place] [address] 62442 Potassium [Moles/Vol] 3.4 mmol/L Low 3.5 - 5.1 [facility] Comment on above: Performed By: #### 2 24494 ####[facility],[address] [place], [place] [address] Protein [Mass/Vol] 6.8 g/dL Normal 6.4 - 8.2 [facility] Comment on above: Performed By: #### 2 00359 ####[facility],[address] [place], [place] [address] Sodium [Moles/Vol] 138 mmol/L Normal 136 - 145 [facility] Comment on above: Performed By: #### 2 85505 ####[facility],[address] [place], [place] [address] Urea nitrogen [Mass/Vol] 12 mg/dL Normal - [facility] Comment on above: Performed By: #### 2 53146 ####[facility],[address] [place], [place] [address] CT ABDOMEN/PELVIS Won 2024 CT ABDOMEN/PELVIS W Normal [facility] ED MED ADMINISTRATION DETAIL on 02-17-2025 ED MED ADMINISTRATION DETAIL Normal [facility] ED NURSES CLINICAL NOTEon ED NURSES CLINICAL NOTE Normal [facility] ED ORDER SHEET (CPOE ONLY)on 02-17-2025 ED ORDER SHEET (CPOE ONLY) Normal [facility] ED PHYSICIAN CLINICAL REPORT on 02-17-2025 ED PHYSICIAN CLINICAL REPORT Normal [facility] ED SUPER BILLon 02-17-2025 ED SUPER BILL Normal [facility] ED VISIT SUMMARYon ED VISIT SUMMARY Normal [facility] ED VITALS FLOW SHEETon 02-17 ED VITALS FLOW SHEET Normal [facility] LIPASEon 02-17-2025 Lipase [Catalytic activity/Vol] 39.0 U/L Normal 15.0 - 78.0 [facility] Comment on above: Result Comment: *PLE ASE NOTE THAT RANGES FOR LIPASE HAVE CHANGED OF 09/30/23 DUE TO AN ASSAYUPDATE BY THE [employer] SUPPORT SPECIALIST.THE NEW ASSAY RANGE IS 6-250 U/L, WITH A REFERENCERANGE OF 16-77 U/L. Performed By: #### 2 55960 ####[facility],[address] [place] [address] 25424 URINALYSISon 02-17-2025 Amorphous NONE Normal [facility] Comment on above: Performed By: #### 2 80320 ####[facility],[address] [place] [address] Bacteria NONE Normal [facility] Comment on above: Performed By: #### 2 52639 ####[facility],[address] [place] [address] Bilirubin Ql (U) Negative Normal NORMAL: NEGATIVE [facility] Comment on above: Performed By: #### 2 88544 ####[facility],[address] [place] [address] Casts NONE Normal [facility] Comment on above: Performed By: #### 2 04522 ####[facility],[address] [place], [place] [id number] Clarity (U) clear Normal NORMAL: CLEAR [facility] Comment on above: Performed By: #### 2 84760 ####[facility],[address] [place] [address] 39410 Color (U) p.yel Normal NORMAL: YELLOW [facility] Comment on above: Performed By: #### 2 75555 ####[facility],[address] [place] [address] 87601 Crystals LM Nom (Urine sed) NONE Normal [facility] Comment on above: Performed By: #### 2 21902 ####[facility],[address] [place] [address] 05234 Epi Cells MODERATE Normal [facility] Comment on above: Performed By: #### 2 60666 ####[facility],[address] [place], [place] [id number] Glucose Ql (U) NORM Normal NORMAL: NORMAL [facility] Comment on above: Performed By: #### 2 20183 ####[facility],[address] [place] [address] 06854 Hemoglobin Ql (U) 10 Abnormal NORMAL: NEGATIVE [facility] Comment on above: Performed By: #### 2 70921 ####[facility],[address] [place] [address] 78860 Ketone Negative Normal NORMAL: NEGATIVE [facility] Comment on above: Performed By: #### 2 57747 ####[facility],[address] [place] [address] 10873 Leukocytes Negative Normal NORMAL: NEGATIVE [facility] Comment on above: Performed By: #### 2 99677 ####[facility],[address] [place] [address] Mucous NONE Normal [facility] Comment on above: Performed By: #### 2 81118 ####[facility],[address] [place], [place] [id number] Nitrite Ql (U) Negative Normal NORMAL: NEGATIVE [facility] Comment on above: Performed By: #### 2 92645 ####[facility],[address] [place], [place] [id number] pH (U) 7 [pH] Normal NORMAL: 5.0-8.0 [facility] Comment on above: Performed By: #### 2 42185 ####[facility],[address] [place] [address] 32576 Protein Ql (U) 15 Abnormal NORMAL: NEGATIVE [facility] Comment on above: Performed By: #### 2 29690 ####[facility],[address] [place] [address] 03781 Rbc NONE Normal 0-3/hpf [facility] Comment on above: Performed By: #### 2 78415 ####[facility],[address] [place] [address] 91050 Sp [place] 1.010 Normal NORMAL: 1.010-1.030 [facility] Comment on above: Performed By: #### 2 79145 ####[facility],[address] [place] [address] Specimen Type R Normal [facility] Comment on above: Performed By: #### 2 69150 ####[facility],[address] [place] [address] Urinalysis dipstick W Reflex Microscopic panel (U) SEE BELOW Normal [facility] Comment on above: Result Comment: MICR OSCOPIC Performed By: #### 2 59352 ####[facility],[address] [place] [address] Urobilinog NORM Normal NORMAL: NORMAL [facility] Comment on above: Performed By: #### 2 93044 ####[facility],[address] [place] [address] Wbc NONE Normal 0-5/hpf [facility] Comment on above: Performed By: #### 2 [id number] ####[facility],[address] [place] [address] Yeast NONE Normal [facility] Comment on above: Performed By: #### 2 [id number] ####[facility],[address] [place], [place] [id number] Absolute immature granulocyt e countOrdered By: SIMBA ABRAHAM on 02-03-2025 Immature granulocytes (Bld) [#/Vol] Absolute immature granulocyte count 0.00-1.00 [facility] Absolute lymphocyte countOrd ered By: SIMBA ABRAHAM on 02-03-2025 Lymphocytes Auto (Unsp spec) [#/Vol] Absolute lymphocyte count 1.30-2.90 [facility] Bacteria detection in urine sediment by light microscopyOrdered By: SIMBA ABRAHAM on 02-03-2025 Bacteria LM Ql (Urine sed) Bacteria detection in urine sediment by light microscopy 0 - 1+ [facility] Basic Metabolic Panelon 05-0 Anion gap [Moles/Vol] 9.6 mmol/L Normal 8.0-16.0 [facility] Comment on above: Performed By: #### B MP #### [facility] [address] [place] [address] Calcium [Mass/Vol] 8.9 mg/dL Normal 8.2-10.0 [facility] Comment on above: Performed By: #### B MP #### [address] [place] [address] Chloride [Moles/Vol] 106 mmol/L Normal 94-110 [facility] Comment on above: Performed By: #### B MP #### [address] [place] [address] CO2 [Moles/Vol] 28 mmol/L Normal 21-34 [facility] Comment on above: Performed By: #### B MP #### [address] [place] [address] Creatinine [Mass/Vol] 0.80 mg/dL Normal 0.51-0.95 [facility] Comment on above: Performed By: #### B MP #### [address] [place] [address] EGFR Other Races >60 Normal >60 [facility] Comment on above: Performed By: #### B MP #### [address] [place] [address] GFR/1.73 sq M.predicted among blacks MDRD (S/P/Bld) [Vol rate/Area] mL/min/{1.73_m2} Normal >60 [facility] Comment on above: Result Comment: [employer] paula Kidney Disease less than 60 mL/min/1.73 m2 Kidney Failure less than 15 mL/min/1.73 m2 Average estimated GFR by age: 30-39 years 107 mL/min/1.73 m2 Performed By: #### B MP #### [facility] [address] [place] [address] Glucose [Mass/Vol] 74 mg/dL Normal 65-100 [facility] Comment on above: Performed By: #### B MP #### [facility] [address] [place] [address] Potassium [Moles/Vol] 3.6 mmol/L Normal 3.3-5.1 [facility] Comment on above: Performed By: #### B MP #### [facility] [address] [place] [address] Sodium [Moles/Vol] 140 mmol/L Normal 132-145 [facility] Comment on above: Performed By: #### B MP #### [facility] [address] [place] [address] Urea nitrogen [Mass/Vol] 12.6 mg/dL Normal 3.2-26.9 [facility] Comment on above: Performed By: #### B MP #### [facility] [address] [place] [address] Urea nitrogen/Creatinine [Mass ratio] 16 mg/mg Normal 6-20 [facility] Comment on above: Performed By: #### B MP #### [facility] [address] [place] [address] Basophils Auto (Bld) [#/Vol] Ordered By: SIMBA ABRAHAM on 02-03-2025 Basophils (Bld) [#/Vol] Automated blood basophil count (number/volume) 0.00-0.10 [facility] Blood absolute eosinophil co untOrdered By: SIMBA ABRAHAM on 02-03-2025 Eosinophils (Bld) [#/Vol] Blood absolute eosinophil count High 0.00-0.20 [facility] Blood basophils/100 leukocyt esOrdered By: SIMBA ABRAHAM on 02-03-2025 Basophils/100 WBC (Bld) Blood basophils/ 100 leukocytes 0.2-1.0 [facility] Blood erythrocytes count (nu mber/volume)Ordered By: SIMBA ABRAHAM on 02-03-2025 RBC (Bld) [#/Vol] Blood erythrocyte count 3.83- 5.19 [facility] Blood hematocrit (volume fra ction)Ordered By: SIMBA ABRAHAM on 02-03-2025 Hematocrit (Bld) [Volume fraction] Blood hematocrit (volume fraction) 33.4-46.0 [facility] Blood leukocytes count (numb er/volume)Ordered By: SIMBA ABRAHAM on 02-03-2025 WBC (Bld) [#/Vol] Blood leukocytes cou nt (number/volume) 3.6-10.8 [facility] Blood platelet mean volumeOr dered By: SIMBA ABRAHAM on 02-03-2025 Platelet mean volume (Bld) [Entitic vol] Blood platelet mean volume 7.4-10.4 [facility] CBC w/Auto Differentialon Basophils Abs. # 0.06 K/uL Normal 0.00-0.10 [facility] Comment on above: Performed By: #### U [facility] #### [address] [place] [address] Basophils/100 WBC (Bld) 0.7 % Normal 0.2-1.0 [facility] Comment on above: Performed By: #### U AMR #### [address] [place] [address] Eosinophils (Bld) [#/Vol] 0.40 10*3/uL High 0.00-0.20 [facility] Comment on above: Performed By: #### U AMR #### [address] [place] [address] Eosinophils/100 WBC (Bld) 4.3 % High 0.9-2.9 [facility] Comment on above: Performed By: #### U [facility]RC #### [address] [place] [address] Erythrocyte distribution width (RBC) [Ratio] 12.5 % Normal 11.5-14.5 [facility] Comment on above: Performed By: #### U [facility] #### [address] [address] Hematocrit (Bld) [Volume fraction] 43.2 % Normal 33.4-46.0 [facility] Comment on above: Performed By: #### U [facility] #### [address] [address] Hemoglobin (Bld) [Mass/Vol] 14.7 g/dL High 11.1-13.7 [facility] Comment on above: Performed By: #### U [facility] #### [address] [place] [address] Imm Grans % 0.10 % Normal 0.00-1.00 [facility] Comment on above: Performed By: #### U [facility] #### [address] [place] [address] Imm Grans Absolute # 0.01 K/uL Normal 0.00-0.10 [facility] Comment on above: Performed By: #### U [facility]RC #### [address] [place] [address] Lymphocytes (Bld) [#/Vol] 2.40 10*3/uL Normal 1.30-2.90 [facility] Comment on above: Performed By: #### U [facility] #### [address] [address] Lymphocytes/100 WBC (Bld) 27.7 % Normal 17.0-45.5 [facility] Comment on above: Performed By: #### U [facility] #### [address] [place] [address] MCH (RBC) [Entitic mass] 29.7 pg Normal 27.0-31.0 [facility] Comment on above: Performed By: #### U [facility] #### [address] [place] [address] MCHC (RBC) [Mass/Vol] 34.0 g/dL Normal 33.0-37.0 [facility] Comment on above: Performed By: #### U [facility] #### [address] [address] MCV (RBC) [Entitic vol] 87.3 fL Normal 81.0-99.0 [facility] Comment on above: Performed By: #### U AMRC #### [address] [place] [address] Monocytes (Bld) [#/Vol] 0.70 10*3/uL Normal 0.30-0.80 [facility] Comment on above: Performed By: #### U AMRC #### [address] [place] [address] Monocytes/100 WBC (Bld) 7.6 % Normal 5.5-11.7 [facility] Comment on above: Performed By: #### U AMRC #### [address] [place] [address] Neutrophils Abs. # 5.15 K/uL High 2.20-4.80 [facility] Comment on above: Performed By: #### U [facility] #### [address] [place] [address] Neutrophils/100 WBC (Bld) 59.6 % Normal 43.0-65.0 [facility] Comment on above: Performed By: #### U [facility] #### [address] [place] [address] Platelet mean volume (Bld) [Entitic vol] 10.0 fL Normal 7.4-10.4 [facility] Comment on above: Performed By: #### U [facility] #### [address] [place] [address] Platelets (Bld) [#/Vol] 258 10*3/uL Normal 148-402 [facility] Comment on above: Performed By: #### U [facility] #### [address] [address] RBC (Bld) [#/Vol] 4.95 10*6/uL Normal 3.83-5.19 [facility] Comment on above: Performed By: #### U [facility] #### [address] [place] [address] WBC (Bld) [#/Vol] 8.6 10*3/uL Normal 3.6-10.8 [facility] Comment on above: Performed By: #### U [facility] #### [address] [address] [address] ABD/PELVIS Won 02-03-2025 CT ABD/PELVIS W EXAMINATION: CT OF THE ABDOMEN AND PELVIS WITH CONTRAST 02/03/2025 7:45 pm TECHNIQUE: CT of the abdomen and pelvis was performed with the administration of intravenous contrast. Multiplanar reformatted images are provided for review. Automated exposure control, iterative reconstruction, and/or weight based adjustment of the mA/kV was utilized to reduce the radiation dose to as low as reasonably achievable. COMPARISON: None. HISTORY: ORDERING SYSTEM PROVIDED HISTORY: abdominal pain FINDINGS: The liver has normal size. There is no pattern of portal venous phase contrast enhancement for the liver. The portal venous system is patent. There is no focal lesions in the liver. Patient had previous cholecystectomy. The biliary tree is dilated. The pancreas has uniform size and contrast enhancement. Peripancreatic fat planes preserved. Pancreatic duct system is not dilated. The spleen appear unremarkable. The adrenal glands are not enlarged. Kidneys have preserved size, cortical thickness and parenchymal enhancement. There is no renal calculus obstruction. Aorta and IVC appear unremarkable. There is no midline retro peritoneal adenopathy. The bladder is mild distended, it appears unremarkable. The uterus appears unremarkable, it has a centrally located IUD device. There is normal appearance for the left ovary. There is a follicular cyst of 3.5 cm in the right ovary. There are no acute inflammatory changes in the omental/mesenteric fat planes, there are no signs for pericolonic inflammatory process, colitis or diverticulitis. The appendix seen and has unremarkable appearance. Lower lung bases demonstrate no significant findings. Visualized bone structures appear unremarkable. Mild degenerative changes are seen for the facet joints of the L5-S1 in the lumbar spine on the left side. There is a well corticated old avulsion of the tip of the inferior articular facet L4 in left side L5-S1 facet joint this is now an incidental finding IMPRESSION: No indication for acute intraperitoneal retroperitoneal process in the abdomen or in Normal [facility] 02-03-2025 TERENCE Patient: HORACE ACUNA MRUN [id number] Location: [facility] Aount: [id number] : 1995 Age: 30 Sex F Lab NumbEr [id number] Requested by: SIMBA ABRAHAM Admitdate: 02/03/25 Source: UR Collected: 02/03/25 18:15 Site: Received : 02/03/25 18:56 Culture, Urine FINAL 02/05/25 07:50 02/04/25 Performing Lab: [address] [address] Director: Marcellus Hardwick MD -- AEROBIC CULTURE RESULTS: NO BACTERIAL GROWTH Normal [facility] Comment on above: Performed By: #### U [facility] #### [facility] [address] [place] [address] Calcium measurement (mass fr action)Ordered By: SIMBA ABRAHAM on 02-03-2025 Calcium (Unsp spec) [Mass fraction] Calcium measurement (mass fraction) 8.2-10.0 [facility] Determination of erythrocyte mean corpuscular volume (MCV)Ordered By: SIMBA ABRAHAM on 02-03-2025 MCV (RBC) [Entitic vol] Determination of erythrocyte mean corpuscular volume (MCV) 81.0-99.0 [facility] Eosinophil count as percenta ge of total leukocytesOrdered By: SIMBA ABRAHAM on 02-03-2025 Eosinophils/100 WBC (Unsp spec) Eosinophil count as percentage of total leukocytes High 0.9-2.9 [facility] Erythrocyte distribution wid th standard deviationOrdered By: SIMBA ABRAHAM on 02-03-2025 Erythrocyte distribution width (RBC) [Ratio] Erythrocyte distribution width standard deviation 11.5-14.5 [facility] Glomerular filtration rate ( GFR) estimation/1.73 sq m using serum, plasma, or whole bOrdered By: SIMBA ABRAHAM on 02-03-2025 GFR/1.73 sq M.predicted among blacks CKD-EPI (S/P/Bld) [Vol rate/Area] Glomerular filtration rate (GFR) estimation/1.73 sq m using serum, plasma, or whole b >60 [facility] Comment on above: Chronic Kidney Disea se less than 60 mL/min/1.73 [id number] Failure less than 15 mL/min/1.73 [id number] estimated GFR by age:30-39 years 107 mL/min/1.73 m2 GFR/1.73 sq M.predicted among non-blacks CKD-EPI (S/P/Bld) [Vol rate/Area] Glomerular filtration rate (GFR) estimation/1.73 sq m using serum, plasma, or whole b >60 [facility] HCG Quanton 02-03-2025 HCG Quant <1 Normal [facility] Comment on above: Result Comment: Expe cted values for Quantitative HCG Assay: Years Range Male 19-83 0-2 mIU/mL Non- female 22-87 0-6 mIU/mL Maxium level of 5,000 to 200,000 mIU/mL is reached at 10-12wks. Levels decline slowly to 1,000-50,000 during 3rd trimester.wks. Please note reference range change Effective: 10-18-03 Performed By: #### H CGQ #### [place] [address] Ketones Test strip Ql (U)Ord ered By: SIMBA ABRAHAM on 02-03-2025 Ketones Ql (U) Urine ketones detect ion by test strip Negative [facility] Leukocyte esterase ur dipsti ckOrdered By: SIMBA ABRAHAM on 02-03-2025 Leukocyte esterase Test strip Ql (U) Urine leukocyte esterase detection by dipstick Abnormal Negative [facility] Lymphocytes/100 WBC Auto (Bl d)Ordered By: SIMBA ABRAHAM on 02-03-2025 Lymphocytes/100 WBC (Bld) Automated blood lymphocyte count as percentage of total leukocytes 17.0-45.5 [facility] MCH Auto (RBC) [Entitic mass ]Ordered By: SIMBA ABRAHAM on 02-03-2025 MCH (RBC) [Entitic mass] Automated erythrocyte mean corpuscular hemoglobin (MCH) measurement (mass/erythrocyte 27.0-31.0 [facility] MCHC Auto (RBC) [Mass/Vol]Or dered By: SIMBA ABRAHAM on 02-03-2025 MCHC (RBC) [Mass/Vol] Automated erythroc yte mean corpuscular hemoglobin concentration (MCHC) measurement (m 33.0-37.0 [facility] Monocytes Auto (Bld) [#/Vol] Ordered By: SIMBA ABRAHAM on 02-03-2025 Monocytes (Bld) [#/Vol] Automated blood monocyte count (number/volume) 0.30-0.80 [facility] Monocytes/100 WBC Auto (Bld) Ordered By: SIMBA ABRAHAM on 02-03-2025 Monocytes/100 WBC (Bld) Automated blood monocyte count as percentage of total leukocytes 5.5-11.7 [facility] Mucus LM Ql (Urine sed)Order ed By: SIMBA ABRAHAM on 02-03-2025 Mucus Ql (Urine sed) Mucus detection in urine sediment by light microscopy [facility] Neutrophils Auto (Bld) [#/Vo l]Ordered By: SIMBA ABRAHAM on 02-03-2025 Neutrophils (Bld) [#/Vol] Automated blood neutrophil count (number/volume) High 2.20-4.80 [facility] Neutrophils seg % bldOrdered By: SIMBA ABRAHAM on 02-03-2025 Segmented neutrophils/100 WBC (Bld) Neutrophils seg % bld 43.0-65.0 [facility] Nitrite Test strip Ql (U)Ord ered By: SIMBA ABRAHAM on 02-03-2025 Nitrite Ql (U) Nitrite ur dipstick Negative [facility] Platelets Auto (Bld) [#/Vol] Ordered By: SIMBA ABRAHAM on 02-03-2025 Platelets (Bld) [#/Vol] Automated blood platelet count (number/volume) 148-402 [facility] Potassium (Bld) [Moles/Vol]O rdered By: SIMBA ABRAHAM on 02-03-2025 Potassium [Moles/Vol] Potassium [Moles/v olume] in Blood 3.3-5.1 [facility] Protein ur QLOrdered By: AUDREY ABRAHAM on 02-03-2025 Protein Ql (U) Protein ur QL Abnormal Negative [facility] RBC LM Ql (Urine sed)Ordered By: SIMBA ABRAHAM on 02-03-2025 RBC Ql (U) Erythrocytes detecti on in urine sediment by light microscopy 0 - 2 [facility] RBC Test strip (U) [#/Vol]Or dered By: SIMBA ABRAHAM on 02-03-2025 RBC (U) [#/Vol] Urine erythrocytes c ount by test strip (number/volume) Abnormal Negative [facility] Serum or plasma anion gapOrd ered By: SIMBA ABRAHAM on 02-03-2025 Anion gap [Moles/Vol] Serum or plasma an ion gap 8.0-16.0 [facility] Serum or plasma carbon dioxi de measurement (moles/volume)Ordered By: SIMBA ABRAHAM on 02-03-2025 CO2 [Moles/Vol] Serum or plasma carb on dioxide measurement (moles/volume) 21-34 [facility] Serum or plasma chloride ginger surement (moles/volume)Ordered By: SIMBA ABRAHAM on 02-03-2025 Chloride [Moles/Vol] Serum or plasma chl oride measurement (moles/volume) 94-110 [facility] Serum or plasma creatinine m easurement (mass/volume)Ordered By: SIMBA ABRAHAM on 02-03-2025 Creatinine [Mass/Vol] Serum or plasma creatinine measurement (mass/volume) 0.51-0.95 [facility] Serum or plasma glucose elizabeth urement (mass/volume)Ordered By: SIMBA ABRAHAM on 02-03-2025 Glucose [Mass/Vol] Serum or plasma gluc ose measurement (mass/volume) 65-100 [facility] Serum or plasma human chorio paula gonadotropin (hCG) measurement (units/volume)Ordered By: SIMBA ABRAHAM on 02-03-2025 HCG Qn Serum or plasma silke n chorionic gonadotropin (hCG) measurement (units/volume) [facility] Comment on above: Expected values for Quantitative HCG Assay: Years Range Male 19-83 0-2 mIU/mL Non- female 22-87 0-6 mIU/mLMaxium level of 5,000 to 200,000 mIU/mL is reached at 10-12wks.Levels decline slowly to 1,000-50,000 during 3rd trimester.wks. Please note reference range change Effective: 10-18-03 Serum or plasma sodium measu rement (moles/volume)Ordered By: SIMBA ABRAHAM on 02-03-2025 Sodium [Moles/Vol] Serum or plasma sodi um measurement (moles/volume) 132-145 [facility] Serum or plasma urea nitroge n measurement (mass/volume)Ordered By: SIMBA ABRAHAM on 02-03-2025 Urea nitrogen [Mass/Vol] Serum or plasma urea nitrogen measurement (mass/volume) 3.2-26.9 [facility] Serum or plasma urea nitroge n/creatinine mass ratioOrdered By: SIMBA ABRAHAM on 02-03-2025 Urea nitrogen/Creatinine [Mass ratio] Serum or plasma urea nitrogen/creatinine mass ratio 6-20 [facility] Specific gravity Test strip (U) [Rel density]Ordered By: SIMBA ABRAHAM on 02-03-2025 Specific gravity (U) [Rel density] Specific gravity ur dipstick 1.015-1.025 [facility] UA w/Micrscopic-reflex cultu reon 02-03-2025 Appearance (U) sl.cloudy Normal Clear [facility] Comment on above: Performed By: #### U [facility]RC #### [facility] [address] [place], [place] [id number] Bacteria 3+ /hpf Normal 0 - 1+ [facility] Comment on above: Performed By: #### U [facility] #### [facility] [address] [place], [place] [id number] Bilirubin Ql (U) Negative Normal Negative [facility] Comment on above: Performed By: #### U [facility] #### [facility] [address] [place], [place] [id number] Casts [employer] Normal [facility] Comment on above: Performed By: #### U [facility] #### [facility] [address] [place], [place] [id number] Casts. [employer]ACH[employer] Normal [facility] Comment on above: Performed By: #### U [facility]RC #### [facility] [address] [place], [place] [id number] Color (U) yellow Normal Yellow [facility] Comment on above: Performed By: #### U [facility] #### [facility] [address] [place] [address] Crystals LM Nom (Urine sed) [employer]ACH[employer] Normal [facility] Comment on above: Performed By: #### U [facility]RC #### [facility] [address] [place] [address] Crystals. [employer]ACH[employer] Normal [facility] Comment on above: Performed By: #### U [facility] #### [facility] [address] [place] [address] Epithelial cells LM Ql (Urine sed) 7-15 Normal 0 - 6 [facility] Comment on above: Performed By: #### U [facility] #### [address] [place] [address] Glucose Ql (U) NORMAL Normal Negative [facility] Comment on above: Performed By: #### U [facility] #### [facility] [address] [place] [address] Hemoglobin Ql (U) 150 Abnormal Negative [facility] Comment on above: Performed By: #### U AMRC #### [facility] [address] [place] [address] Ketones Ql (U) Negative Normal Negative [facility] Comment on above: Performed By: #### U [facility]RC #### [facility] [address] [place] [address] Leukocytes Esterase 1+ Abnormal Negative [facility] Comment on above: Performed By: #### U AMRC #### [facility] [address] [place] [address] Mucus Ql (Urine sed) 4+ /lpf Normal [facility] Comment on above: Performed By: #### U AMRC #### [facility] [address] [place] [address] Nitrite Ql (U) Negative Normal Negative [facility] Comment on above: Performed By: #### U [facility] #### [address] [place] [address] pH (U) 6 [pH] Normal [facility] Comment on above: Performed By: #### U [facility] #### [address] [place] [address] Protein Ql (U) 15 Abnormal Negative [facility] Comment on above: Performed By: #### U [facility] #### [address] [address] RBC 2-5 Normal 0 - 2 [facility] Comment on above: Performed By: #### U [facility] #### [address] [place] [address] Specific gravity (U) [Rel density] 1.020 Normal 1.015-1.025 [facility] Comment on above: Performed By: #### U [facility] #### [address] [place] [address] Trichomonas [employer] Normal [facility] Comment on above: Performed By: #### U [facility] #### [address] [place] [address] Urobilinogen NORMAL Normal Normal-1.0 [facility] Comment on above: Performed By: #### U [facility] #### [address] [place] [address] WBC 5-10 Normal 0 - 6 [facility] Comment on above: Performed By: #### U [facility] #### [facility] [address] [place] [address] Yeast [employer] Normal [facility] Comment on above: Performed By: #### U [facility] #### [facility] [address] [place] [address] Other [employer]ACH[employer] Normal [facility] Comment on above: Performed By: #### U [facility] #### [facility] [address] [place] [address] Urine appearance determinati onOrdered By: SIMBA ABRAHAM on 02-03-2025 Appearance (U) Appearance ur Clear [facility] Urine color determinationOrd ered By: SIMBA ABRAHAM on 02-03-2025 Color (U) Color ur Yellow [facility] Urine epithelial cells detec tionOrdered By: SIMBA ABRAHAM on 02-03-2025 Epithelial cells Ql (U) Urine epithelial cells detection 0 - 6 [facility] Urine glucose measurement by test strip (mass/volume)Ordered By: SIMBA ABRAHAM on 02-03-2025 Glucose Test strip (U) [Mass/Vol] Urine glucose measurement by test strip (mass/volume) Negative [facility] Urine leukocytes count (numb er/volume)Ordered By: SIMBA ABRAHAM on 02-03-2025 WBC (U) [#/Vol] Urine leukocytes cou nt (number/volume) 0 - 6 [facility] Urine total bilirubin detect ionOrdered By: SIMBA ABRAHAM on 02-03-2025 Bilirubin Ql (U) Urine total bilirubi n detection Negative [facility] Urine urobilinogen measureme ntOrdered By: SIMBA ABRAHAM on 02-03-2025 Urobilinogen Ql (U) Urine urobilinogen measurement Normal-1.0 [facility] Whole blood hemoglobin measu rement (mass/volume)Ordered By: SIMBA ABRAHAM on 02-03-2025 Hemoglobin (Bld) [Mass/Vol] Whole blood hemoglobin measurement (mass/volume) High 11.1-13.7 [facility] pH Test strip (U)Ordered By: SIMBA ABRAHAM on 02-03-2025 pH (U) Urine pH measurement by dipstick [facility] CBC + DIFFon 01-01-2025 Baso # 0.03 x10EE3/UL Normal 0.00 - 0.10 [facility] Comment on above: Performed By: #### 2 [id number] ####[facility],[address] [place] [address] Basophils/100 WBC (Bld) 0.5 % Normal 0.0 - 2.0 [facility] Comment on above: Performed By: #### 2 [address] ####[place] [address] CBC + DIFF Normal [facility] Comment on above: Result Comment: CBC- COMPLETE BLOOD COUNT Performed By: #### 2 10113 ####[place] [address] EO # 0.39 x10EE3/UL Normal 0.00 - 0.50 [facility] Comment on above: Performed By: #### 2 [address] ####[address] [address] Eosinophils/100 WBC (Bld) 6.4 % Normal 0.0 - 7.0 [facility] Comment on above: Performed By: #### 2 39399 ####[place] [address] Erythrocyte distribution width (RBC) [Ratio] 13.8 % Normal 12.0 - 15.6 [facility] Comment on above: Performed By: #### 2 [address]90 ####[place] [address] Hematocrit (Bld) [Volume fraction] 44.4 % Normal 34.0 - 46.0 [facility] Comment on above: Performed By: #### 2 [address]251 ####[facility],[address] [place] [address] Hemoglobin (Bld) [Mass/Vol] 15.3 g/dL Normal 12.0 - 16.0 [facility] Comment on above: Performed By: #### 2 [address] ####[facility],[address] [place] [address] Lymph # 0.93 x10EE3/UL Normal 0.80 - 2.80 [facility] Comment on above: Performed By: #### 2 34430 ####[facility],[address] [place] [address] Lymphocytes/100 WBC (Bld) 15.3 % Low 20.0 - 45.0 [facility] Comment on above: Performed By: #### 2 12672 ####[facility],[address] [place] [address] MANUAL DIFF N/A Normal [facility] Comment on above: Performed By: #### 2 [address]65[address] ####[facility],[address] [place] [address] MCH (RBC) [Entitic mass] 29 pg Normal 27 - 33 [facility] Comment on above: Performed By: #### 2 [id number] ####[facility],[address] [place] [address] MCHC 34 X10 3 Normal 32 - 36 [facility] Comment on above: Performed By: #### 2 67547 ####[facility],[address] [place], [place] [id number] MCV (RBC) [Entitic vol] 85 fL Normal 80 - 99 [facility] Comment on above: Performed By: #### 2 72411 ####[facility],[address] [place] [address] [place] # 0.43 x10EE3/UL Normal 0.20 - 1.00 [facility] Comment on above: Performed By: #### 2 66674 ####[facility],[address] [place], [place] [address] MONOS % 7.0 % Normal 0.0 - 10.0 [facility] Comment on above: Performed By: #### 2 94386 ####[facility],[address] [place] [address] 49129 Morphology Kamlesh (Bld) [Interp] N/A Normal [facility] Comment on above: Performed By: #### 2 03811 ####[facility],[address] [place] [address] Neut # 4.33 x10EE3/UL Normal 1.50 - 7.10 [facility] Comment on above: Performed By: #### 2 78446 ####[facility],[address] [place] [address] Neutrophils/100 WBC (Bld) 70.9 % Normal 46.0 - 76.0 [facility] Comment on above: Performed By: #### 2 19715 ####[facility],[address] [place], [place] [id number] PLATELET 271 x10EE3/UL Normal 150 - 450 [facility] Comment on above: Performed By: #### 2 95954 ####[facility],[address] [place] [address] Platelet mean volume (Bld) [Entitic vol] 8.5 fL Normal 6.6 - 10.5 [facility] Comment on above: Result Comment: AUTO MATED DIFFERENTIAL Performed By: #### 2 27767 ####[facility],[address] [place], [place] [id number] RBC 5.21 x 10EE6/UL Normal 4.10 - 5.30 [facility] Comment on above: Performed By: #### 2 02045 ####[facility],[address] [place], [place] [id number] WBC 6.1 x 10EE3/UL Normal 4.5 - 10.8 [facility] Comment on above: Performed By: #### 2 05009 ####[facility],[address] [place] [address] 15555 CHEST 1 VIEWon 01-01-2025 CHEST 1 VIEW Normal [facility] CMP with eGFRon 01-01-2025 AGE 29 years Normal [facility] Comment on above: Performed By: #### 2 53808 ####[facility],[address] [place] [address] 58981 Albumin [Mass/Vol] 3.3 g/dL Low 3.4 - 5.0 [facility] Comment on above: Performed By: #### 2 14970 ####[facility],[address] [place] [address] 51261 Albumin/Globulin [Mass ratio] 0.9 {ratio} Normal 0.9 - 1.6 [facility] Comment on above: Performed By: #### 2 52369 ####[facility],[address] [place] [address] 57254 ALK PHOS 138 U/L High 46 - 116 [facility] Comment on above: Performed By: #### 2 87591 ####[facility],[address] [place] [address] 15193 ALT [Catalytic activity/Vol] 80 U/L High 16 - 63 [facility] Comment on above: Performed By: #### 2 30326 ####[facility],[address] [place] [address] 21911 Anion gap [Moles/Vol] 12 mmol/L Normal 10 - 20 [facility] Comment on above: Performed By: #### 2 30103 ####[facility],[address] [place] [address] 46938 AST [Catalytic activity/Vol] 31 U/L Normal 13 - 39 [facility] Comment on above: Performed By: #### 2 61452 ####[facility],[address] [place] [address] 41265 B/C RATIO 15 ratio Normal 0 - 30 [facility] Comment on above: Performed By: #### 2 84761 ####[facility],[address] [place] [address] 84876 Bilirubin [Mass/Vol] 0.4 mg/dL Normal 0.2 - 1.0 [facility] Comment on above: Performed By: #### 2 97636 ####[facility],[address] [place] [address] 11380 Calcium [Mass/Vol] 8.7 mg/dL Normal 8.5 - 10.1 [facility] Comment on above: Performed By: #### 2 78778 ####[facility],[address] [place] [address] 64525 Chloride [Moles/Vol] 105 mmol/L Normal 98 - 107 [facility] Comment on above: Performed By: #### 2 83738 ####[facility],[address] [place] [address] 67810 CMP with eGFR Normal [facility] Comment on above: Result Comment: COMP REHENSIVE METABOLIC PANEL Performed By: #### 2 26805 ####[facility],[address] [place] [address] 95736 CO2 [Moles/Vol] 24.6 mmol/L Normal 21.0 - 32.0 [facility] Comment on above: Performed By: #### 2 06979 ####[facility],[address] [place] [address] 60482 Creatinine [Mass/Vol] 0.72 mg/dL Normal 0.55 - 1.02 [facility] Comment on above: Performed By: #### 2 65702 ####[facility],[address] [place] [address] 97649 GFR/1.73 sq M.predicted among non-blacks MDRD (S/P/Bld) [Vol rate/Area] mL/min/{1.73_m2} Normal 60 - 999 [facility] Comment on above: Performed By: #### 2 11275 ####[place] [id number] Result Comment: ACCO RDING TO THE NATIONAL KIDNEY DISEASE EDUCATION PROGRAM(NKDE), A NORMAL eGFRIS A VALUE GREATER THAN OR EQUAL TO 60 ML/MIN/1.73 SQ METERS.CHRONIC KIDNEY DISEASE: <60mL/MIN/1.73 SQ METERSKIDNEY FAILURE: <15mL/MIN/1.73 SQ METERSTHIS TEST SHOULD ONLY BE USED FOR PATIENTS 18 YEARS OF AGE AND OLDER. Globulin (S) [Mass/Vol] 3.7 g/dL Normal 1.5 - 3.8 [facility] Comment on above: Performed By: #### 2 46981 ####[place] [address] Glucose [Mass/Vol] 122 mg/dL High 74 - 106 [facility] Comment on above: Performed By: #### 2 63808 ####[place] [id number] Potassium [Moles/Vol] 3.4 mmol/L Low 3.5 - 5.1 [facility] Comment on above: Performed By: #### 2 94876 ####[address] [address] Protein [Mass/Vol] 7.0 g/dL Normal 6.4 - 8.2 [facility] Comment on above: Performed By: #### 2 86868 ####[address] [address] Sodium [Moles/Vol] 138 mmol/L Normal 136 - 145 [facility] Comment on above: Performed By: #### 2 81344 ####[address] [address] Urea nitrogen [Mass/Vol] 11 mg/dL Normal 7 - 18 [facility] Comment on above: Performed By: #### 2 12275 ####[address] [address] CORONAVIRUS (SARS) ANTIGEN T ESTon 01-01-2025 EXTERNAL QC DONE? YES Normal [facility] Comment on above: Performed By: #### 2 89065 ####[facility],[address] [place] [address] INTERNAL CONTROL PASS Normal [facility] Comment on above: Performed By: #### 2 31142 ####[facility],[address] [place] [address] 14626 SARS ANTIGEN Negative Normal NORMAL: NEGATIVE [facility] Comment on above: Performed By: #### 2 52670 ####[facility],[address] [place] [address] 54056 SEND TO ? NO Normal [facility] Comment on above: Result Comment: SARS -CoV-2THIS TEST IS BEING USED UNDER THE FDA EUA PROCEDURE. THIS ASSAY HAS BEENVALIDATED AT [facility] FOR USE WITH NASAL AND NASOPHARYNGEAL SWABSPECIMENS.INTERPRETIVE DATATEST RESULTS SHOULD ALWAYS BE CONSIDERED IN THE CONTEXT OF CLINICALOBSERVATIONS AND EPIDEMIOLOGICAL DATA IN MAKING FINAL DIAGNOSIS AND PATIENTMANAGEMENT DECISIONS. PATIENT MANAGEMENT SHOULD FOLLOW CURRENT CDC GUIDELINES.THE NELL SARS ANTIGEN MARJAN DOES NOT DIFFERENTIATE BETWEEN SARS-CoV & SARS-CoV-2.A POSITIVE TEST RESULT INDICATES THE PRESENCE OF SARS-CoV-2 NUCLEOCAPSID PROTEINANTIGEN, AND THE PATIENT IS INFECTED WITH THE VIRUS AND PRESUMED TO BECONTAGIOUS.A NEGATIVE TEST RESULT FOR THIS TEST MEANS THAT SARS-CoV-2 NUCLEOCAPSID PROTEINANTIGEN WAS NOT PRESENT IN THE SPECIMEN ABOVE THE LIMIT OF DETECTION. HOWEVER, ANEGATIVE RESULT DOES NOT RULE OUT COVID-19 AND SHOULD NOT BE USED THE [facility]LE[place] FOR TREATMENT OR PATIENT MANAGEMENT DECISIONS. A NEGATIVE RESULT DOES NOTEXCLUDE THE POSSIBILITY OF COVID-19. NEGATIVE RESULTS, FROM PATIENTS WITHSYMPTOM ONSET BEYOND FIVE DAYS, SHOULD BE TREATED PRESUMPTIVE ANDCONFIRMATION WITH A MOLECULAR ASSAY, IF NECESSARY, FOR PATIENT MANAGEMENT, MAYBE PERFORMED.WHEN DIAGNOSTIC TESTING IS NEGATIVE, THE POSSIBLILTY OF A FALSE NEGATIVE RESULTSHOULD BE CONSIDERED IN THE CONTEXT OF A PATIENT'S RECENT EXPOSURES AND THEPRESENCE OF CLINICAL SIGNS AND SYMPTOMS CONSISTENT WITH COVID-19. THEPOSSIBILITY OF A FALSE NEGATIVE RESULT SHOULD ESPECIALLY BE CONSIDERED IF THEPATIENT'S RECENT EXPOSURES OR CLINICAL PRESENTATION INDICATE THAT COVID-19 ISLIKELY, AND DIAGNOSTIC TESTS FOR OTHER CAUSES OF ILLNESS (e.g., OTHERRESPIRATORY ILLNESS) ARE NEGATIVE. IF COVID-19 IS STILL SUSPECTED BASED ONEXPOSURE HISTORY TOGETHER WITH OTHER CLINICAL FINDINGS, RE-TESTING SHOULD BECONSIDERED BY HEALTHCARE PROVIDERS IN CONSULTATION WITH [facility]. Performed By: #### 2 82044 ####[facility],[address] [place] [address] CT CHEST (PE PROTOCOL)on CT CHEST (PE PROTOCOL) Normal [facility] D-DIMER, QUANTITATIVEon 04-0 D-DIMER QUANT 253 ng/ml High 0 - 230 [facility] Comment on above: Performed By: #### 2 62697 ####[facility],[address] [place] [address] D-DIMER, QUANTITATIVE Normal [facility] Comment on above: Result Comment: TREMAYNE T D-DIMER Performed By: #### 2 59008 ####[facility],[address] [place] [address] ED MED ADMINISTRATION DETAIL on 01-01-2025 ED MED ADMINISTRATION DETAIL Normal [facility] ED NURSES CLINICAL NOTEon ED NURSES CLINICAL NOTE Normal [facility] ED ORDER SHEET (CPOE ONLY)on 01-01-2025 ED ORDER SHEET (CPOE ONLY) Normal [facility] ED PHYSICIAN CLINICAL REPORT on 01-01-2025 ED PHYSICIAN CLINICAL REPORT Normal [facility] ED PHYSICIAN DISCHARGE REPOR Ton 01-01-2025 ED PHYSICIAN DISCHARGE REPORT Normal [facility] ED SUPER BILLon 01-01-2025 ED SUPER BILL Normal [facility] ED VISIT SUMMARYon ED VISIT SUMMARY Normal [facility] ED VITALS FLOW SHEETon 01-01 ED VITALS FLOW SHEET Normal [facility] INFLUENZA VIRUS RAPID A/Bon 01-01-2025 INFLUENZA VIRUS RAPID A/B Normal [facility] Comment on above: Performed By: #### 2 23316 ####[facility],[address] [place] [address] NT-proBNPon 01-01-2025 Natriuretic peptide B (Bld) [Mass/Vol] 86 pg/mL Normal 0 - 125 [facility] Comment on above: Performed By: #### 2 01695 ####[facility],[address] [place] [address] SERUM QUALon 01-01 EXTERNAL QC DONE? YES Normal [facility] Comment on above: Performed By: #### 2 66114 ####[facility],[address] [place] [address] INTERNAL QC PASS Normal [facility] Comment on above: Performed By: #### 2 85884 ####[facility],[address] [place] [address] SER Negative Normal NEGATIVE [facility] Comment on above: Performed By: #### 2 22446 ####[facility],[address] [place], [place] [id number] TROPONINon 01-01-2025 HS TROPONIN 14.2 pg/mL Normal 0.0 - 51.4 [facility] Comment on above: Performed By: #### 2 83475 ####[facility],[address] [place] [address] HS TROPONIN 13.8 pg/mL Normal 0.0 - 51.4 [facility] Comment on above: Performed By: #### 2 49180 ####[facility],[address] [place] [address] ED MED ADMINISTRATION DETAIL on 12-31-2024 ED MED ADMINISTRATION DETAIL Normal [facility] ED NURSES CLINICAL NOTEon ED NURSES CLINICAL NOTE Normal [facility] ED ORDER SHEET (CPOE ONLY)on 12-31-2024 ED ORDER SHEET (CPOE ONLY) Normal [facility] ED PHYSICIAN CLINICAL REPORT on 12-31-2024 ED PHYSICIAN CLINICAL REPORT Normal [facility] ED PHYSICIAN DISCHARGE REPOR Ton 12-31-2024 ED PHYSICIAN DISCHARGE REPORT Normal [facility] ED SUPER BILLon 12-31-2024 ED SUPER BILL Normal [facility] ED VISIT SUMMARYon ED VISIT SUMMARY Normal [facility] ED VITALS FLOW SHEETon 12-31 ED VITALS FLOW SHEET Normal [facility] CBC + DIFFon 12-20-2024 Baso # 0.03 x10EE3/UL Normal 0.00 - 0.10 [facility] Comment on above: Performed By: #### 2 74148 ####[facility],[address] [place] [address] Basophils/100 WBC (Bld) 0.3 % Normal 0.0 - 2.0 [facility] Comment on above: Performed By: #### 2 87217 ####[facility],[address] [place] [address] CBC + DIFF Normal [facility] Comment on above: Result Comment: CBC- COMPLETE BLOOD COUNT Performed By: #### 2 00736 ####[facility],[address] [place] [address] EO # 0.42 x10EE3/UL Normal 0.00 - 0.50 [facility] Comment on above: Performed By: #### 2 78463 ####[facility],[address] [place] [address] Eosinophils/100 WBC (Bld) 3.7 % Normal 0.0 - 7.0 [facility] Comment on above: Performed By: #### 2 14176 ####[facility],[address] [place] [address] Erythrocyte distribution width (RBC) [Ratio] 13.4 % Normal 12.0 - 15.6 [facility] Comment on above: Performed By: #### 2 99120 ####[facility],[address] [place] [address] Hematocrit (Bld) [Volume fraction] 41.7 % Normal 34.0 - 46.0 [facility] Comment on above: Performed By: #### 2 21188 ####[facility],[address] [place] [address] Hemoglobin (Bld) [Mass/Vol] 14.5 g/dL Normal 12.0 - 16.0 [facility] Comment on above: Performed By: #### 2 91354 ####[facility],[address] [place] [address] Lymph # 3.09 x10EE3/UL High 0.80 - 2.80 [facility] Comment on above: Performed By: #### 2 27541 ####[facility],[address] [place] [address] Lymphocytes/100 WBC (Bld) 27.3 % Normal 20.0 - 45.0 [facility] Comment on above: Performed By: #### 2 84707 ####[facility],[address] [place] [address] MANUAL DIFF N/A Normal [facility] Comment on above: Performed By: #### 2 98802 ####[facility],[address] [place] [address] MCH (RBC) [Entitic mass] 30 pg Normal 27 - 33 [facility] Comment on above: Performed By: #### 2 81175 ####[facility],[address] [place], [place] [id number] MCHC 35 X10 3 Normal 32 - 36 [facility] Comment on above: Performed By: #### 2 97204 ####[facility],[address] [place] [address] MCV (RBC) [Entitic vol] 86 fL Normal 80 - 99 [facility] Comment on above: Performed By: #### 2 23426 ####[facility],[address] [place], [place] [id number] [place] # 0.63 x10EE3/UL Normal 0.20 - 1.00 [facility] Comment on above: Performed By: #### 2 99768 ####[facility],[address] [place] [address]130 MONOS % 5.6 % Normal 0.0 - 10.0 [facility] Comment on above: Performed By: #### 2 79578 ####[facility],[address] [place] [address] Morphology Kamlesh (Bld) [Interp] N/A Normal [facility] Comment on above: Performed By: #### 2 56504 ####[facility],[address] [place] [address] Neut # 7.13 x10EE3/UL High 1.50 - 7.10 [facility] Comment on above: Performed By: #### 2 05849 ####[facility],[address] [place] [address] Neutrophils/100 WBC (Bld) 63.1 % Normal 46.0 - 76.0 [facility] Comment on above: Performed By: #### 2 77173 ####[facility],[address] [place] [address] PLATELET 350 x10EE3/UL Normal 150 - 450 [facility] Comment on above: Performed By: #### 2 10713 ####[facility],[address] [place] [address] Platelet mean volume (Bld) [Entitic vol] 8.0 fL Normal 6.6 - 10.5 [facility] Comment on above: Result Comment: AUTO MATED DIFFERENTIAL Performed By: #### 2 41180 ####[facility],[address] [place], [place] [id number] RBC 4.86 x 10EE6/UL Normal 4.10 - 5.30 [facility] Comment on above: Performed By: #### 2 89748 ####[facility],[address] [place] [address] 47821 WBC 11.3 x 10EE3/UL High 4.5 - 10.8 [facility] Comment on above: Performed By: #### 2 84072 ####[facility],[address] [place] [address] 96500 CHEST 2 VIEWSon 12-20-2024 CHEST 2 VIEWS Normal [facility] CMP with eGFRon 12-20-2024 AGE 29 years Normal [facility] Comment on above: Performed By: #### 2 62952 ####[facility],[address] [place] [address] 48869 Albumin [Mass/Vol] 3.5 g/dL Normal 3.4 - 5.0 [facility] Comment on above: Performed By: #### 2 94223 ####[facility],[address] [place] [address] 49461 Albumin/Globulin [Mass ratio] 0.9 {ratio} Normal 0.9 - 1.6 [facility] Comment on above: Performed By: #### 2 84901 ####[facility],[address] [place] [address] 97256 ALK PHOS 122 U/L High 46 - 116 [facility] Comment on above: Performed By: #### 2 29997 ####[facility],[address] [place] [address] 92126 ALT [Catalytic activity/Vol] 47 U/L Normal 16 - 63 [facility] Comment on above: Performed By: #### 2 66189 ####[facility],[address] [place] [address] 60966 Anion gap [Moles/Vol] 9 mmol/L Low 10 - 20 [facility] Comment on above: Performed By: #### 2 25073 ####[facility],[address] [place] [address] 04663 AST [Catalytic activity/Vol] 16 U/L Normal 13 - 39 [facility] Comment on above: Performed By: #### 2 75680 ####[facility],[address] [place] [address] 36060 B/C RATIO 16 ratio Normal 0 - 30 [facility] Comment on above: Performed By: #### 2 46040 ####[facility],[address] [place] [address] 48910 Bilirubin [Mass/Vol] 0.1 mg/dL Low 0.2 - 1.0 [facility] Comment on above: Performed By: #### 2 93722 ####[facility],[address] [place] [address] 25460 Calcium [Mass/Vol] 8.7 mg/dL Normal 8.5 - 10.1 [facility] Comment on above: Performed By: #### 2 78217 ####[facility],[address] [place] [address] 33504 Chloride [Moles/Vol] 104 mmol/L Normal 98 - 107 [facility] Comment on above: Performed By: #### 2 26319 ####[facility],[address] [place] [address] 14506 CMP with eGFR Normal [facility] Comment on above: Result Comment: COMP REHENSIVE METABOLIC PANEL Performed By: #### 2 73858 ####[facility],[address] [place] [address] 69611 CO2 [Moles/Vol] 29.6 mmol/L Normal 21.0 - 32.0 [facility] Comment on above: Performed By: #### 2 54454 ####[facility],[address] [place] [address] 65774 Creatinine [Mass/Vol] 0.86 mg/dL Normal 0.55 - 1.02 [facility] Comment on above: Performed By: #### 2 47314 ####[facility],[address] [place] [address] 14956 GFR/1.73 sq M.predicted among non-blacks MDRD (S/P/Bld) [Vol rate/Area] mL/min/{1.73_m2} Normal 60 - 999 [facility] Comment on above: Performed By: #### 2 41887 ####[facility],[address] [place] [address] Result Comment: ACCO RDING TO THE NATIONAL KIDNEY DISEASE EDUCATION PROGRAM(NKDE), A NORMAL eGFRIS A VALUE GREATER THAN OR EQUAL TO 60 ML/MIN/1.73 SQ METERS.CHRONIC KIDNEY DISEASE: <60mL/MIN/1.73 SQ METERSKIDNEY FAILURE: <15mL/MIN/1.73 SQ METERSTHIS TEST SHOULD ONLY BE USED FOR PATIENTS 18 YEARS OF AGE AND OLDER. Globulin (S) [Mass/Vol] 3.7 g/dL Normal 1.5 - 3.8 [facility] Comment on above: Performed By: #### 2 29032 ####[place] [address] Glucose [Mass/Vol] 92 mg/dL Normal 74 - 106 [facility] Comment on above: Performed By: #### 2 50300 ####[address] [address] Potassium [Moles/Vol] 3.3 mmol/L Low 3.5 - 5.1 [facility] Comment on above: Performed By: #### 2 88243 ####[address] [address] Protein [Mass/Vol] 7.2 g/dL Normal 6.4 - 8.2 [facility] Comment on above: Performed By: #### 2 93086 ####[address] [address] Sodium [Moles/Vol] 139 mmol/L Normal 136 - 145 [facility] Comment on above: Performed By: #### 2 88553 ####[address] [address] Urea nitrogen [Mass/Vol] 14 mg/dL Normal 7 - 18 [facility] Comment on above: Performed By: #### 2 68608 ####[facility],[address] [place] [address] CORONAVIRUS (SARS) ANTIGEN T ESTon 12-20-2024 EXTERNAL QC DONE? YES Normal [facility] Comment on above: Performed By: #### 2 06499 ####[facility],[address] [place] [address] INTERNAL CONTROL PASS Normal [facility] Comment on above: Performed By: #### 2 54442 ####[facility],[address] [place] [address] SARS ANTIGEN Negative Normal NORMAL: NEGATIVE [facility] Comment on above: Performed By: #### 2 47485 ####[facility],[address] [place] [address] SEND TO ? NO Normal [facility] Comment on above: Result Comment: SARS -CoV-2THIS TEST IS BEING USED UNDER THE FDA EUA PROCEDURE. THIS ASSAY HAS BEENVALIDATED AT [facility] FOR USE WITH NASAL AND NASOPHARYNGEAL SWABSPECIMENS.INTERPRETIVE DATATEST RESULTS SHOULD ALWAYS BE CONSIDERED IN THE CONTEXT OF CLINICALOBSERVATIONS AND EPIDEMIOLOGICAL DATA IN MAKING FINAL DIAGNOSIS AND PATIENTMANAGEMENT DECISIONS. PATIENT MANAGEMENT SHOULD FOLLOW CURRENT CDC GUIDELINES.THE NELL SARS ANTIGEN MARJAN DOES NOT DIFFERENTIATE BETWEEN SARS-CoV & SARS-CoV-2.A POSITIVE TEST RESULT INDICATES THE PRESENCE OF SARS-CoV-2 NUCLEOCAPSID PROTEINANTIGEN, AND THE PATIENT IS INFECTED WITH THE VIRUS AND PRESUMED TO BECONTAGIOUS.A NEGATIVE TEST RESULT FOR THIS TEST MEANS THAT SARS-CoV-2 NUCLEOCAPSID PROTEINANTIGEN WAS NOT PRESENT IN THE SPECIMEN ABOVE THE LIMIT OF DETECTION. HOWEVER, ANEGATIVE RESULT DOES NOT RULE OUT COVID-19 AND SHOULD NOT BE USED THE SOLEBASIS FOR TREATMENT OR PATIENT MANAGEMENT DECISIONS. A NEGATIVE RESULT DOES NOTEXCLUDE THE POSSIBILITY OF COVID-19. NEGATIVE RESULTS, FROM PATIENTS WITHSYMPTOM ONSET BEYOND FIVE DAYS, SHOULD BE TREATED PRESUMPTIVE ANDCONFIRMATION WITH A MOLECULAR ASSAY, IF NECESSARY, FOR PATIENT MANAGEMENT, MAYBE PERFORMED.WHEN DIAGNOSTIC TESTING IS NEGATIVE, THE POSSIBLILTY OF A FALSE NEGATIVE RESULTSHOULD BE CONSIDERED IN THE CONTEXT OF A PATIENT'S RECENT EXPOSURES AND THEPRESENCE OF CLINICAL SIGNS AND SYMPTOMS CONSISTENT WITH COVID-19. THEPOSSIBILITY OF A FALSE NEGATIVE RESULT SHOULD ESPECIALLY BE CONSIDERED IF THEPATIENT'S RECENT EXPOSURES OR CLINICAL PRESENTATION INDICATE THAT COVID-19 ISLIKELY, AND DIAGNOSTIC TESTS FOR OTHER CAUSES OF ILLNESS (e.g., OTHERRESPIRATORY ILLNESS) ARE NEGATIVE. IF COVID-19 IS STILL SUSPECTED BASED ONEXPOSURE HISTORY TOGETHER WITH OTHER CLINICAL FINDINGS, RE-TESTING SHOULD BECONSIDERED BY HEALTHCARE PROVIDERS IN CONSULTATION WITH [facility]. Performed By: #### 2 [id number] ####[facility],[address] [place], [place] [id number] CT ABDOMEN/PELVIS WOon 12-20 CT ABDOMEN/PELVIS WO Normal [facility] D-DIMER, QUANTITATIVEon 12-02 D-DIMER QUANT <200 Normal 0 - 230 [facility] Comment on above: Performed By: #### 2 [id number] ####[address] [address] D-DIMER, QUANTITATIVE Normal [facility] Comment on above: Result Comment: TREMAYNE T D-DIMER Performed By: #### 2 46770 ####[address] [address] INFLUENZA VIRUS RAPID A/Bon 12-20-2024 INFLUENZA VIRUS RAPID A/B Normal [facility] Comment on above: Performed By: #### 2 51049 ####[address] [address] LIPASEon 12-20-2024 Lipase [Catalytic activity/Vol] 48.0 U/L Normal 15.0 - 78.0 [facility] Comment on above: Result Comment: *PLE ASE NOTE THAT RANGES FOR LIPASE HAVE CHANGED OF 09/30/23 DUE TO AN ASSAYUPDATE BY THE [employer] SUPPORT SPECIALIST.THE NEW ASSAY RANGE IS 6-250 U/L, WITH A REFERENCERANGE OF 16-77 U/L. Performed By: #### 2 [id number] ####[facility],[address] [place] [address] URINEon 12-20-2024 Beta HCG ( test) Ql (U) Negative Normal NEGATIVE [facility] Comment on above: Performed By: #### 2 54381 ####[facility],[address] [place] [address] EXTERNAL QC DONE? YES Normal [facility] Comment on above: Result Comment: Very dilute urine specimens, as indicated by a low specific gravity, may notcontain signs and displays sales representative levels of hCG. If is still suspected, a firstmorning urine specimen should be collected 48 hours later and tested. Performed By: #### 2 29580 ####[facility],[address] [place] [address] INTERNAL QC PASS Normal [facility] Comment on above: Performed By: #### 2 57747 ####[facility],[address] [place] [address] TROPONINon 12-20-2024 HS TROPONIN 15.0 pg/mL Normal 0.0 - 51.4 [facility] Comment on above: Performed By: #### 2 27923 ####[facility],[address] [place] [address] URINALYSISon 12-20-2024 Amorphous 1+ Normal [facility] Comment on above: Performed By: #### 2 02431 ####[facility],[address] [place] [address] Bacteria TRACE Normal [facility] Comment on above: Performed By: #### 2 78987 ####[facility],[address] [place] [address] Bilirubin Ql (U) Negative Normal NORMAL: NEGATIVE [facility] Comment on above: Performed By: #### 2 40829 ####[facility],[address] [place] [address] Casts NONE Normal [facility] Comment on above: Performed By: #### 2 75379 ####[facility],[address] [place] [address] Clarity (U) sl.cloudy Normal NORMAL: CLEAR [facility] Comment on above: Performed By: #### 2 22254 ####[facility],[address] [place] [address] Color (U) yellow Normal NORMAL: YELLOW [facility] Comment on above: Performed By: #### 2 94458 ####[facility],[address] [place] [address] Crystals LM Nom (Urine sed) NONE Normal [facility] Comment on above: Performed By: #### 2 15593 ####[facility],[address] [place] [address] Epi Cells MODERATE Normal [facility] Comment on above: Performed By: #### 2 72763 ####[facility],[address] [place] [address] Glucose Ql (U) NORM Normal NORMAL: NORMAL [facility] Comment on above: Performed By: #### 2 09278 ####[facility],[address] [place] [address] Hemoglobin Ql (U) 150 Abnormal NORMAL: NEGATIVE [facility] Comment on above: Performed By: #### 2 18594 ####[facility],[address] [place] [address] Ketone Negative Normal NORMAL: NEGATIVE [facility] Comment on above: Performed By: #### 2 75590 ####[facility],[address] [place] [address] Leukocytes Negative Normal NORMAL: NEGATIVE [facility] Comment on above: Performed By: #### 2 23301 ####[facility],[address] [place] [address] Mucous 3+ Normal [facility] Comment on above: Performed By: #### 2 41109 ####[facility],[address] [place] [address] Nitrite Ql (U) Negative Normal NORMAL: NEGATIVE [facility] Comment on above: Performed By: #### 2 48889 ####[facility],[address] [place] [address] pH (U) 6 [pH] Normal NORMAL: 5.0-8.0 [facility] Comment on above: Performed By: #### 2 08619 ####[facility],[address] [place] [address] Protein Ql (U) 30 Abnormal NORMAL: NEGATIVE [facility] Comment on above: Performed By: #### 2 04963 ####[facility],[address] [place] [address] Rbc 0-5 Normal 0-3/hpf [facility] Comment on above: Performed By: #### 2 99414 ####[facility],[address] [place] [address] Sp [place] 1.020 Normal NORMAL: 1.010-1.030 [facility] Comment on above: Performed By: #### 2 53420 ####[facility],[address] [place] [address] Specimen Type R Normal [facility] Comment on above: Performed By: #### 2 64237 ####[facility],[address] [place] [address] Urinalysis dipstick W Reflex Microscopic panel (U) SEE BELOW Normal [facility] Comment on above: Result Comment: MICR OSCOPIC Performed By: #### 2 76076 ####[facility],[address] [place] [address] Urobilinog NORM Normal NORMAL: NORMAL [facility] Comment on above: Performed By: #### 2 19832 ####[facility],[address] [place] [address] Wbc 1-5 Normal 0-5/hpf [facility] Comment on above: Performed By: #### 2 01847 ####[facility],[address] [place] [address] Yeast NONE Normal [facility] Comment on above: Performed By: #### 2 81867 ####[facility],[address] [place] [address] EMERGENCY DEPARTMENTon 12-14 [place] [address] HEALTH INFORMATION MANAGEMENT EMERGENCY DEPARTMENT : [id number] Signed Patient: JESSICA ACUNA Acct:[id number] MRUN : [id number] : 1995 Sex: F Loc: ED ADM Date: Room/Bed: DISC Date: 12/13/24 ____ History of Present Illness - General Symptom onset: 12/13 HPI: 29-year-old female with left flank and lower abdominal pain that started today. reports she was having some urinary frequency for the last few days. Has prior history of kidney infections. Denies any fever or chills. Denies any travelling history/sick contacts/recent use of antibiotics/Covid exposure. No cough/congestion/fever/c hills/rash. No blood in stool/vomitus or urine. NO LOC/Dizziness/Syncope. No headache/neck pain/dyspnea/chest pain. No speech or vision problems. No numbness/tingling or paresthesia. No unilateral weakness in face or extremities Mode of Transport: Ambulatory - General Chief Complaint: Abdominal/GI Complaints Stated Complaint: ABD PAIN BACK PAIN Time Seen by Provider: 12/13/24 16:14 - Related Data Allergies Allergy/AdvReac Type Severity Reaction Status Date / Time Penicillins Allergy Unknown Verified 12/13/24 16:51 Review of System - Constitutional Constitutional: Present: see HPI, Well developed, Well nourished, Non-toxic. Absent: diaphoresis, fever, Lethargic - Nose,Throat,Mouth Nose (ROS): Present: no symptoms reported. Absent: pain Throat: Present: no symptoms reported. Absent: pain, swelling, discharge Mouth: Present: no symptoms reported. Absent: pain, swelling - Respiratory Respiratory: Present: no symptoms reported. Absent: cough, short of breath, wheezing - CV Cardiology: Present: no symptoms reported. Absent: chest pain, edema - GI Gastrointestinal/Abdomin al: Present: see HPI, abdominal pain. Absent: diarrhea, nausea, vomiting - Genitourinary Symptoms: Present: see HPI, burning, frequency, flank pain (left). Absent: dysuria, pain, vaginal bleeding - Neuro Neurological: Present: no symptoms reported. Absent: headache, weakness, saddle anesthesia - Muskuloskeletal Musculoskeletal: Present: no symptoms reported. Absent: back pain, joint pain, joint swelling, neck pain - Integumentary Skin: Absent: lesions, rash - Allergic/Immunologic Immunological/Allergic: Present: no symptoms reported - Hematologic Hematologic/Lymphatic: Absent: easy bleeding, easy bruising, swollen glands - Endocrine Endocrine: Present: no symptoms reported - Psychiatric Psychiatric: Present: Normal Affect, Normal Mood. Absent: Depressed - All Others/Exceptions All Other Systems: Reviewed and Negative Except Where Noted in Documentation ED PMH/Social HX/Family HX - Social History Able to Read: No Able to Write: No Smoking Status: Never Smoked Hx Chewing Tobacco Use: No Alcohol Use: Never Any recreational drug use reported?: No Feels Threatened In Home Environment: No Feels Threatened In a Relationship: No - Clio/Gender ID What is your current Gender Identity? Choose all that Apply: Female Define your Sexual Orientation?: Straight/Heterosexual General Exam - General Limitations: Complains of: no limitations Constitutional: Present: see HPI, Well developed, Well nourished, well hydrated, Non-toxic. Absent: diaphoresis, fever, Lethargic - Head Head exam: Present: atraumatic, normocephalic, normal inspection - Eye Eye exam: Present: normal apperance, normal accomodation, EOMI Pupils: Present: PERRL - ENT ENT exam: Present: normal orophraynx, mucous membranes moist, TMs clear w/ good light reflex, normal external ear exam, No Nasal Discharge, Posterior Pharynx Non-erethemetous - Expanded ENT Exam Ear exam: Present: normal external inspection Mouth exam: Present: normal external inspection Teeth exam: Present: normal inspection Throat exam: normal inspection - Neck Neck exam: Present: full ROM, Supple. Absent: tenderness, meningismus, Posterior Lymphadenopathy, Anterior Lymphadenopathy, anterior neck swelling - Respiratory Respiratory exam: Present: lungs clear and equal bilaterally. Absent: respiratory distress, wheezes, rales, rhonchi, stridor, accessory muscle use, Nasal Flaring - Cardiovascular Cardiovascular Exam: Present: regular rate, normal rhythm, normal heart sounds. Absent: murmur, rubs, gallop, clicks - GI/Abdominal GI/Abdominal exam: Present: soft, non tender, normal bowel sounds, tenderness. Absent: guarding, rebound, rigid, mass, bruit, pulsatile mass, hernia - Extremities Exam Extremities exam: Present: normal inspection, neurovascularly intact, full ROM, normal muscle strength, normal/equal pulses. Absent: calf tenderness, pedal edema, tenderness (more content not included)... Normal [facility] Absolute immature granulocyt e countOrdered By: VIET MARIA on 12-13-2024 Immature granulocytes (Bld) [#/Vol] Absolute immature granulocyte count 0.00-1.00 [facility] Absolute lymphocyte countOrd ered By: VIET MARIA on 12-13-2024 Lymphocytes Auto (Unsp spec) [#/Vol] Absolute lymphocyte count 1.30-2.90 [facility] Bacteria detection in urine sediment by light microscopyOrdered By: VIET MARIA on 12-13-2024 Bacteria LM Ql (Urine sed) Bacteria detection in urine sediment by light microscopy 0 - 1+ [facility] Basophils Auto (Bld) [#/Vol] Ordered By: VIET MARIA on 12-13-2024 Basophils (Bld) [#/Vol] Automated blood basophil count (number/volume) 0.00-0.10 [facility] Blood absolute eosinophil co untOrdered By: VIET MARIA on 12-13-2024 Eosinophils (Bld) [#/Vol] Blood absolute eosinophil count High 0.00-0.20 [facility] Blood basophils/100 leukocyt esOrdered By: VIET MARIA on 12-13-2024 Basophils/100 WBC (Bld) Blood basophils/ 100 leukocytes 0.2-1.0 [facility] Blood erythrocytes count (nu mber/volume)Ordered By: VIET MARIA on 12-13-2024 RBC (Bld) [#/Vol] Blood erythrocyte count High 3.83- 5.19 [facility] Blood hematocrit (volume fra ction)Ordered By: VIET MARIA on 12-13-2024 Hematocrit (Bld) [Volume fraction] Blood hematocrit (volume fraction) 33.4-46.0 [facility] Blood leukocytes count (numb er/volume)Ordered By: VIET MARIA on 12-13-2024 WBC (Bld) [#/Vol] Blood leukocytes cou nt (number/volume) 3.6-10.8 [facility] Blood platelet mean volumeOr dered By: VIET MARIA on 12-13-2024 Platelet mean volume (Bld) [Entitic vol] Blood platelet mean volume 7.4-10.4 [facility] CBC w/Auto Differentialon Basophils Abs. # 0.06 K/uL Normal 0.00-0.10 [facility] Comment on above: Performed By: #### C BCS #### [place] [id number] [phone]) Basophils/100 WBC (Bld) 0.6 % Normal 0.2-1.0 [facility] Comment on above: Performed By: #### C BCS #### [address] [id number] [phone] Eosinophils (Bld) [#/Vol] 0.30 10*3/uL High 0.00-0.20 [facility] Comment on above: Performed By: #### C BCS #### [place] [address] Eosinophils/100 WBC (Bld) 2.6 % Normal 0.9-2.9 [facility] Comment on above: Performed By: #### C BCS #### [address] [address] Erythrocyte distribution width (RBC) [Ratio] 12.8 % Normal 11.5-14.5 [facility] Comment on above: Performed By: #### C BCS #### [address] [address] Hematocrit (Bld) [Volume fraction] 45.4 % Normal 33.4-46.0 [facility] Comment on above: Performed By: #### C BCS #### [place] [address] Hemoglobin (Bld) [Mass/Vol] 15.4 g/dL High 11.1-13.7 [facility] Comment on above: Performed By: #### C BCS #### [address] [address] Imm Grans % 0.10 % Normal 0.00-1.00 [facility] Comment on above: Performed By: #### C BCS #### [address] [address] Imm Grans Absolute # 0.01 K/uL Normal 0.00-0.10 [facility] Comment on above: Performed By: #### C BCS #### [address] [address] Lymphocytes (Bld) [#/Vol] 2.60 10*3/uL Normal 1.30-2.90 [facility] Comment on above: Performed By: #### C BCS #### [place] [address] [place] [address] Lymphocytes/100 WBC (Bld) 24.4 % Normal 17.0-45.5 [facility] Comment on above: Performed By: #### C BCS #### [place] [address] [place] [address] MCH (RBC) [Entitic mass] 29.6 pg Normal 27.0-31.0 [facility] Comment on above: Performed By: #### C BCS #### [place] [address] [place] [address] MCHC (RBC) [Mass/Vol] 33.9 g/dL Normal 33.0-37.0 [facility] Comment on above: Performed By: #### C BCS #### [address] [address] MCV (RBC) [Entitic vol] 87.3 fL Normal 81.0-99.0 [facility] Comment on above: Performed By: #### C BCS #### [place] [address] [place] [address] Monocytes (Bld) [#/Vol] 0.70 10*3/uL Normal 0.30-0.80 [facility] Comment on above: Performed By: #### C BCS #### [place] [address] [place] [address] Monocytes/100 WBC (Bld) 6.4 % Normal 5.5-11.7 [facility] Comment on above: Performed By: #### C BCS #### [place] [address] [place] [address] Neutrophils Abs. # 7.12 K/uL High 2.20-4.80 [facility] Comment on above: Performed By: #### C BCS #### [place] [address] [place] [address] Neutrophils/100 WBC (Bld) 65.9 % High 43.0-65.0 [facility] Comment on above: Performed By: #### C BCS #### [place] [address] [place] [address] Platelet mean volume (Bld) [Entitic vol] 10.2 fL Normal 7.4-10.4 [facility] Comment on above: Performed By: #### C BCS #### [place] [address] [place] [address] Platelets (Bld) [#/Vol] 278 10*3/uL Normal 148-402 [facility] Comment on above: Performed By: #### C BCS #### [place] [address] [place] [address] RBC (Bld) [#/Vol] 5.20 10*6/uL High 3.83-5.19 [facility] Comment on above: Performed By: #### C BCS #### [place] [address] [place] [address] WBC (Bld) [#/Vol] 10.8 10*3/uL Normal 3.6-10.8 [facility] Comment on above: Performed By: #### C BCS #### [place] [address] [place] [address] CT ABD/PELVIS W/Oon 12-14-[address] ABD/PELVIS W/O EXAMINATION: CT OF THE ABDOMEN AND PELVIS WITHOUT CONTRAST 12/13/2024 5:38 pm TECHNIQUE: CT of the abdomen and pelvis was performed without the administration of intravenous contrast. Multiplanar reformatted images are provided for review. Automated exposure control, iterative reconstruction, and/or weight based adjustment of the mA/kV was utilized to reduce the radiation dose to as low as reasonably achievable. COMPARISON: None. HISTORY: ORDERING SYSTEM PROVIDED HISTORY: Left flank / lower abdominal pain FINDINGS: Lower Chest: Visualized portion of the lower chest demonstrates no acute abnormality. Organs: Liver and spleen appear normal in size without focal lesion. Clips are noted in the gallbladder fossa. Normal appearance of the pancreas. Normal adrenal glands and kidneys. No evidence of nephrolithiasis. No evidence of ureteral obstruction. GI/Bowel: There is no evidence of bowel obstruction. No evidence of abnormal bowel wall thickening or distension. Normal appendix. Normal TI. Prominent but nonenlarged lymph nodes in the central small bowel mesentery is a nonspecific finding. No suspicious mesenteric mass or bulky adenopathy. The transverse and left colon are decompressed. No abnormal fecal retention or inflammatory change. Pelvis: No free pelvic fluid. Urinary bladder appears normal. There is an IUD within the uterus with appropriate orientation. There is a simple appearing physiologic cyst involving the right ovary measuring up to 3.5 cm. No follow-up imaging is recommended. No free pelvic fluid. No pelvic or inguinal adenopathy. Peritoneum/Retroperitone um: No retroperitoneal mass or adenopathy. Aorta is nonaneurysmal. Bones/Soft Tissues: No acute abnormality of the visualized osseous structures. IMPRESSION: 1. No acute intra-abdominal or pelvic process. 2. No evidence of nephrolithiasis or ureteral obstruction. 3. Normal appendix. 4. IUD within the uterus with appropriate orientation. 5. Simple appearing physiologic cyst involving the right ovary measuring up to 3.5 cm. No follow-up imaging recommended. Normal [facility] Calcium measurement (mass fr action)Ordered By: VIET MARIA on 12-13-2024 Calcium (Unsp spec) [Mass fraction] Calcium measurement (mass fraction) 8.2-10.0 [facility] Comprehensive Metabolic Pane ronen 12-13-2024 Albumin [Mass/Vol] 3.5 g/dL Normal 3.4-5.0 [facility] Comment on above: Performed By: #### C MP #### [place] [address] [place] [address] Albumin/Globulin [Mass ratio] 0.9 {ratio} Low 1.1-2.5 [facility] Comment on above: Performed By: #### C MP #### [facility] [address] [place] [address] ALP [Catalytic activity/Vol] 110 U/L Normal 54-112 [facility] Comment on above: Performed By: #### C MP #### [place] [address] [place] [address] ALT [Catalytic activity/Vol] 36 U/L Normal 13-66 [facility] Comment on above: Performed By: #### C MP #### [place] [address] [place] [address] Anion gap [Moles/Vol] 9.6 mmol/L Normal 8.0-16.0 [facility] Comment on above: Performed By: #### C MP #### [place] [address] [place] [address] AST [Catalytic activity/Vol] 15 U/L Normal 3-39 [facility] Comment on above: Performed By: #### C MP #### [place] [address] [place] [address] Bilirubin [Mass/Vol] 0.30 mg/dL Normal 0.00-0.99 [facility] Comment on above: Performed By: #### C MP #### [place] [address] [place] [address] Calcium [Mass/Vol] 8.9 mg/dL Normal 8.2-10.0 [facility] Comment on above: Performed By: #### C MP #### [facility] [address] [place] [address] Chloride [Moles/Vol] 99 mmol/L Normal 94-110 [facility] Comment on above: Performed By: #### C MP #### [facility] [address] [place] [address] CO2 [Moles/Vol] 31 mmol/L Normal 21-34 [facility] Comment on above: Performed By: #### C MP #### [facility] [address] [place] [address] Creatinine [Mass/Vol] 0.85 mg/dL Normal 0.51-0.95 [facility] Comment on above: Performed By: #### C MP #### [facility] [address] [place] [address] EGFR Other Races >60 Normal >60 [facility] Comment on above: Performed By: #### C MP #### [facility] [address] [place] [address] GFR/1.73 sq M.predicted among blacks MDRD (S/P/Bld) [Vol rate/Area] mL/min/{1.73_m2} Normal >60 [facility] Comment on above: Result Comment: [employer] paula Kidney Disease less than 60 mL/min/1.73 m2 Kidney Failure less than 15 mL/min/1.73 m2 Average estimated GFR by age: 30-39 years 107 mL/min/1.73 m2 Performed By: #### C MP #### [facility] [address] [place] [address] Globulin (S) [Mass/Vol] 3.9 g/dL Normal 1.5-4.5 [facility] Comment on above: Performed By: #### C MP #### [facility] [address] [place] [address] Glucose [Mass/Vol] 89 mg/dL Normal 65-100 [facility] Comment on above: Performed By: #### C MP #### [facility] [address] [place] [address] Potassium [Moles/Vol] 3.6 mmol/L Normal 3.3-5.1 [facility] Comment on above: Performed By: #### C MP #### [facility] [address] [place] [address] Protein [Mass/Vol] 7.4 g/dL Normal 6.1-8.2 [facility] Comment on above: Performed By: #### C MP #### [place] [address] [place] [address] Sodium [Moles/Vol] 136 mmol/L Normal 132-145 [facility] Comment on above: Performed By: #### C MP #### [address] [address] Urea nitrogen [Mass/Vol] 16.3 mg/dL Normal 3.2-26.9 [facility] Comment on above: Performed By: #### C MP #### [place] [address] [place] [address] Urea nitrogen/Creatinine [Mass ratio] 19 mg/mg Normal 6-20 [facility] Comment on above: Performed By: #### C MP #### [address] [address] Determination of erythrocyte mean corpuscular volume (MCV)Ordered By: VIET MARIA on 12-13-2024 MCV (RBC) [Entitic vol] Determination of erythrocyte mean corpuscular volume (MCV) 81.0-99.0 [facility] Eosinophil count as percenta ge of total leukocytesOrdered By: VIET MARIA on 12-13-2024 Eosinophils/100 WBC (Unsp spec) Eosinophil count as percentage of total leukocytes 0.9-2.9 [facility] Erythrocyte distribution wid th standard deviationOrdered By: VIET MARIA on 12-13-2024 Erythrocyte distribution width (RBC) [Entitic vol] Erythrocyte distribution width standard deviation 11.5-14.5 [facility] Glomerular filtration rate ( GFR) estimation/1.73 sq m using serum, plasma, or whole bOrdered By: VIET MARIA on 12-13-2024 GFR/1.73 sq M.predicted among blacks CKD-EPI (S/P/Bld) [Vol rate/Area] Glomerular filtration rate (GFR) estimation/1.73 sq m using serum, plasma, or whole b >60 [facility] Comment on above: Chronic Kidney Disea se less than 60 mL/min/1.73 [id number] Failure less than 15 mL/min/1.73 [id number] estimated GFR by age:30-39 years 107 mL/min/1.73 m2 GFR/1.73 sq M.predicted among non-blacks CKD-EPI (S/P/Bld) [Vol rate/Area] Glomerular filtration rate (GFR) estimation/1.73 sq m using serum, plasma, or whole b >60 [facility] HCG Quanton 12-13-2024 HCG Quant 1 mIU/mL Normal [facility] Comment on above: Result Comment: Expe cted values for Quantitative HCG Assay: Years Range Male 19-83 0-2 mIU/mL Non- female 22-87 0-6 mIU/mL Maxium level of 5,000 to 200,000 mIU/mL is reached at 10-12wks. Levels decline slowly to 1,000-50,000 during 3rd trimester.wks. Please note reference range change Effective: 10-18-03 Performed By: #### H CGQ #### [facility] [address] [place] [address] High Sensitivity TNIon 12-13 Abs Change hsTnI 2 ng/L Normal [facility] Comment on above: Performed By: #### H STNI #### [facility] [address] [place] [address] Delta % hsTnI 15 % Normal [facility] Comment on above: Performed By: #### H STNI #### [facility] [address], [place] [id number] High Sensitivity TNI 13 ng/L Normal 0-51 [facility] Comment on above: Result Comment: Inte rpretation comment: High-sensitivity troponin I (hsTnI) assay can reliably detect low troponin concentrations relative to conventional troponin assays. It is the preferred marker of myocardial necrosis as recommended by the Fourth [place] Definition of Myocardial Infarction Guidelines. The diagnosis of acute myocardial infarction (AMI) is made based on a rise or fall of troponin with at least one measurement exceeding the laboratory's upper limit of normal (indicating myocardial injury), in the context of reasonable suspicion for coronary ischemia (e.g. typical symptoms, changes on ECG, evidence for loss of myocardial infarction or demonstration of obstructive coronary artery disease). Note: Although abnormal hsTnI values reflect injury to myocardial cells, an elevated hsTnI does not indicate the cause of injury (i.e. ischemia versus non-ischemic disease). In some cases, myocardial injury is chronic and relatively stable such that hsTnI values remain elevated but do not change substantially over hours to days (examples include chronic kidney disease, heart failure or advanced patient age). When determining whether there has been a significant rise or fall of troponin on serial sampling, absolute change in troponin concentration has greater diagnostic accuracy for AMI then relative change criteria. A change of >7 ng/L over a 2-hour interval or a change of >10 ng/L over a 3-hour interval is suggested as a significant change. If the initial hsTnI is below or at the 99th percentile upper reference limit, a 50% change from the baseline is considered significant. If the initial hsTnI is above the 99th percentile upper reference limit, a 20% change from the baseline value is considered significant. Performed By: #### H STNI #### [facility] [address] [place] [address] High Sensitivity TNI 15 ng/L Normal 0-51 [facility] Comment on above: Result Comment: Inte rpretation comment: High-sensitivity troponin I (hsTnI) assay can reliably detect low troponin concentrations relative to conventional troponin assays. It is the preferred marker of myocardial necrosis as recommended by the Fourth [place] Definition of Myocardial Infarction Guidelines. The diagnosis of acute myocardial infarction (AMI) is made based on a rise or fall of troponin with at least one measurement exceeding the laboratory's upper limit of normal (indicating myocardial injury), in the context of reasonable suspicion for coronary ischemia (e.g. typical symptoms, changes on ECG, evidence for loss of myocardial infarction or demonstration of obstructive coronary artery disease). Note: Although abnormal hsTnI values reflect injury to myocardial cells, an elevated hsTnI does not indicate the cause of injury (i.e. ischemia versus non-ischemic disease). In some cases, myocardial injury is chronic and relatively stable such that hsTnI values remain elevated but do not change substantially over hours to days (examples include chronic kidney disease, heart failure or advanced patient age). When determining whether there has been a significant rise or fall of troponin on serial sampling, absolute change in troponin concentration has greater diagnostic accuracy for AMI then relative change criteria. A change of >7 ng/L over a 2-hour interval or a change of >10 ng/L over a 3-hour interval is suggested as a significant change. If the initial hsTnI is below or at the 99th percentile upper reference limit, a 50% change from the baseline is considered significant. If the initial hsTnI is above the 99th percentile upper reference limit, a 20% change from the baseline value is considered significant. Performed By: #### H STNI #### [place] [address] Interpretation of serum or p lasma cardiac troponin I measurement by high sensitivityOrdered By: VIET MARIA on 12-13-2024 Troponin I.cardiac High sensitivity method Ql [Interp] Interpretation of serum or plasma cardiac troponin I measurement by high sensitivity 0-51 [facility] Comment on above: Interpretation comme nt:High-sensitivity troponin I (hsTnI) assay can reliably detect low troponinconcentrations relative to conventional troponin assays. It is thepreferred marker of myocardial necrosis as recommended by the Fourth[place] Definition of Myocardial Infarction Guidelines.The diagnosis of acute myocardial infarction (AMI) is made based on a riseor fall of troponin with at least one measurement exceeding the laboratory'supper limit of normal (indicating myocardial injury), in the context ofreasonable suspicion for coronary ischemia (e.g. typical symptoms, changeson ECG, evidence for loss of myocardial infarction or demonstration ofobstructive coronary artery disease).Note: Although abnormal hsTnI values reflect injury to myocardial cells, anelevated hsTnI does not indicate the cause of injury (i.e. ischemia versusnon-ischemic disease).In some cases, myocardial injury is chronic and relatively stable such thathsTnI values remain elevated but do not change substantially over hours todays (examples include chronic kidney disease, heart failure or advancedpatient age).When determining whether there has been a significant rise or fall oftroponin on serial sampling, absolute change in troponin concentration hasgreater diagnostic accuracy for AMI then relative change criteria. A changeof >7 ng/L over a 2-hour interval or a change of >10 ng/L over a 3-hourinterval is suggested as a significant change. If the initial hsTnI isbelow or at the 99th percentile upper reference limit, a 50% change from thebaseline is considered significant. If the initial hsTnI is above the 99thpercentile upper reference limit, a 20% change from the baseline value isconsidered significant. Ketones Test strip Ql (U)Ord ered By: VIET MARIA on 12-13-2024 Ketones Ql (U) Urine ketones detect ion by test strip Negative [facility] Leukocyte esterase ur dipsti ckOrdered By: VIET MARIA on 12-13-2024 Leukocyte esterase Test strip Ql (U) Urine leukocyte esterase detection by dipstick Negative [facility] Lipaseon 12-13-2024 Lipase [Catalytic activity/Vol] 55 U/L Low 65-230 [facility] Comment on above: Performed By: #### L IPAS #### [id number] [place] [address] Lipase ser/plasOrdered By: Subha MARIA on 12-13-2024 Lipase [Catalytic activity/Vol] Lipase ser/plas Low 65-230 [facility] Lymphocytes/100 WBC Auto (Bl d)Ordered By: VIET MARIA on 12-13-2024 Lymphocytes/100 WBC (Bld) Automated blood lymphocyte count as percentage of total leukocytes 17.0-45.5 [facility] MCH Auto (RBC) [Entitic mass ]Ordered By: VIET MARIA on 12-13-2024 MCH (RBC) [Entitic mass] Automated erythrocyte mean corpuscular hemoglobin (MCH) measurement (mass/erythrocyte 27.0-31.0 [facility] MCHC Auto (RBC) [Mass/Vol]Or dered By: VIET MARIA on 12-13-2024 MCHC (RBC) [Mass/Vol] Automated erythroc yte mean corpuscular hemoglobin concentration (MCHC) measurement (m 33.0-37.0 [facility] Monocytes Auto (Bld) [#/Vol] Ordered By: VIET MARIA on 12-13-2024 Monocytes (Bld) [#/Vol] Automated blood monocyte count (number/volume) 0.30-0.80 [facility] Monocytes/100 WBC Auto (Bld) Ordered By: VIET MARIA on 12-13-2024 Monocytes/100 WBC (Bld) Automated blood monocyte count as percentage of total leukocytes 5.5-11.7 [facility] Neutrophils Auto (Bld) [#/Vo l]Ordered By: VIET MARIA on 12-13-2024 Neutrophils (Bld) [#/Vol] Automated blood neutrophil count (number/volume) High 2.20-4.80 [facility] Neutrophils seg % bldOrdered By: VIET MARIA on 12-13-2024 Segmented neutrophils/100 WBC (Bld) Neutrophils seg % bld High 43.0-65.0 [facility] Nitrite Test strip Ql (U)Ord ered By: VIET MARIA on 12-13-2024 Nitrite Ql (U) Nitrite ur dipstick Negative [facility] Platelets Auto (Bld) [#/Vol] Ordered By: VIET MARIA on 12-13-2024 Platelets (Bld) [#/Vol] Automated blood platelet count (number/volume) 148-402 [facility] Potassium (Bld) [Moles/Vol]O rdered By: VIET MARIA on 12-13-2024 Potassium [Moles/Vol] Potassium [Moles/v olume] in Blood 3.3-5.1 [facility] Protein total ser/plasOrdere d By: VIET MARIA on 12-13-2024 Protein [Mass/Vol] Blood total protein measurement 6.1-8.2 [facility] Protein ur QLOrdered By: OKSANA MARIA on 12-13-2024 Protein Ql (U) Protein ur QL Abnormal Negative [facility] RBC LM Ql (Urine sed)Ordered By: VIET MARIA on 12-13-2024 RBC Ql (U) Erythrocytes detecti on in urine sediment by light microscopy 0 - 2 [facility] RBC Test strip (U) [#/Vol]Or dered By: VIET MARIA on 12-13-2024 RBC (U) [#/Vol] Urine erythrocytes c ount by test strip (number/volume) Abnormal Negative [facility] Serum globulin measurement ( mass/volume)Ordered By: VIET MARIA on 12-13-2024 Globulin (S) [Mass/Vol] Serum globulin measurement (mass/volume) 1.5-4.5 [facility] Serum or plasma alanine lynch otransferase (ALT) measurementOrdered By: VIET MARIA on 12-13-2024 ALT [Catalytic activity/Vol] ALT (SGPT) ser/plas 13-66 [facility] Serum or plasma albumin elizabeth urement by bromocresol purple (BCP) dye binding method (mOrdered By: VIET MARIA on 12-13-2024 Albumin BCP dye [Mass/Vol] Serum or plasma albumin measurement by bromocresol purple (BCP) dye binding method (m 3.4-5.0 [facility] Serum or plasma albumin/glob ulin mass ratioOrdered By: VIET MARIA on 12-13-2024 Albumin/Globulin [Mass ratio] Serum or plasma albumin/globulin mass ratio Low 1.1-2.5 [facility] Serum or plasma alkaline abilio sphatase measurement (enzymatic activity/volume)Ordered By: VIET MARIA on 12-13-2024 ALP [Catalytic activity/Vol] Serum or plasma alkaline phosphatase measurement (enzymatic activity/volume) 54-112 [facility] Serum or plasma anion gapOrd ered By: VIET MARIA on 12-13-2024 Anion gap [Moles/Vol] Serum or plasma an ion gap 8.0-16.0 [facility] Serum or plasma aspartate am inotransferase measurement with P-5'-P (enzymatic activitOrdered By: VIET MARIA on 12-13-2024 AST With P-5'-P [Catalytic activity/Vol] Serum or plasma aspartate aminotransferase measurement with P-5'-P (enzymatic activit 3-39 [facility] Serum or plasma bilirubin me asurement (mass/volume)Ordered By: VIET MARIA on 12-13-2024 Bilirubin [Mass/Vol] Serum or plasma bilirubin measurement (mass/volume) 0.00-0.99 [facility] Serum or plasma carbon dioxi de measurement (moles/volume)Ordered By: VIET MARIA on 12-13-2024 CO2 [Moles/Vol] Serum or plasma carb on dioxide measurement (moles/volume) 21-34 [facility] Serum or plasma chloride ginger surement (moles/volume)Ordered By: VIET MARIA on 12-13-2024 Chloride [Moles/Vol] Serum or plasma chl oride measurement (moles/volume) 94-110 [facility] Serum or plasma creatinine m easurement (mass/volume)Ordered By: VIET MARIA on 12-13-2024 Creatinine [Mass/Vol] Serum or plasma creatinine measurement (mass/volume) 0.51-0.95 [facility] Serum or plasma glucose elizabeth urement (mass/volume)Ordered By: VIET MARIA on 12-13-2024 Glucose [Mass/Vol] Serum or plasma gluc ose measurement (mass/volume) 65-100 [facility] Serum or plasma human chorio paula gonadotropin (hCG) measurement (units/volume)Ordered By: VIET MARIA on 12-13-2024 HCG Qn Serum or plasma silke n chorionic gonadotropin (hCG) measurement (units/volume) [facility] Comment on above: Expected values for Quantitative HCG Assay: Years Range Male 19-83 0-2 mIU/mL Non- female 22-87 0-6 mIU/mLMaxium level of 5,000 to 200,000 mIU/mL is reached at 10-12wks.Levels decline slowly to 1,000-50,000 during 3rd trimester.wks. Please note reference range change Effective: 10-18-03 Serum or plasma sodium measu rement (moles/volume)Ordered By: VIET MARIA on 12-13-2024 Sodium [Moles/Vol] Serum or plasma sodi um measurement (moles/volume) 132-145 [facility] Serum or plasma urea nitroge n measurement (mass/volume)Ordered By: VIET MARIA on 12-13-2024 Urea nitrogen [Mass/Vol] Serum or plasma urea nitrogen measurement (mass/volume) 3.2-26.9 [facility] Serum or plasma urea nitroge n/creatinine mass ratioOrdered By: VIET MARIA on 12-13-2024 Urea nitrogen/Creatinine [Mass ratio] Serum or plasma urea nitrogen/creatinine mass ratio 6-20 [facility] Specific gravity Test strip (U) [Rel density]Ordered By: VIET MARIA on 12-13-2024 Specific gravity (U) [Rel density] Specific gravity ur dipstick 1.015-1.025 [facility] Troponin I measurement by nh ghly sensitive enzyme immunoassayOrdered By: VIET MARIA on 12-13-2024 Troponin I.cardiac High sensitivity method [Mass/Vol] Troponin I measurement by highly sensitive enzyme immunoassay [facility] UA w/Micrscopic-reflex cultu reon 12-13-2024 Appearance (U) CLEAR Normal Clear [facility] Comment on above: Performed By: #### U AMRC #### [facility] [address] [place] [address] Bacteria 1+ /hpf Normal 0 - 1+ [facility] Comment on above: Performed By: #### U AMRC #### [facility] [address] [place] [address] Bilirubin Ql (U) Negative Normal Negative [facility] Comment on above: Performed By: #### U AMRC #### [facility] [address] [place] [address] Casts [employer] [facility] Comment on above: Performed By: #### U AMRC #### [facility] [address] [place] [address] Casts. [employer] Normal [facility] Comment on above: Performed By: #### U AMRC #### [facility] [address] [place] [address] Color (U) leif Normal Yellow [facility] Comment on above: Performed By: #### U AMRC #### [facility] [address] [place] [address] Crystals LM Nom (Urine sed) [employer] Normal [facility] Comment on above: Performed By: #### U AMRC #### [facility] [address] [place] [address] Crystals. [employer] Normal [facility] Comment on above: Performed By: #### U AMRC #### [facility] [address] [place] [address] Epithelial cells LM Ql (Urine sed) >15 Normal 0 - 6 [facility] Comment on above: Performed By: #### U AMRC #### [facility] [address] [place] [address] Glucose Ql (U) NORMAL Normal Negative [facility] Comment on above: Performed By: #### U AMRC #### [facility] [address] [place] [address] Hemoglobin Ql (U) 10 Abnormal Negative [facility] Comment on above: Performed By: #### U AMRC #### [facility] [address] [place] [address] Ketones Ql (U) Negative Normal Negative [facility] Comment on above: Performed By: #### U AMRC #### [facility] [address] [place] [address] Leukocytes Esterase Negative Normal Negative [facility] Comment on above: Performed By: #### U AMRC #### [facility] [address] [place] [address] Mucus Ql (Urine sed) [employer] Normal [facility] Comment on above: Performed By: #### U AMRC #### [facility] [address] [place] [address] Nitrite Ql (U) Negative Normal Negative [facility] Comment on above: Performed By: #### U AMRC #### [facility] [address] [place] [address] pH (U) 5 [pH] Normal [facility] Comment on above: Performed By: #### U AMRC #### [facility] [address] [place] [address] Protein Ql (U) 15 Abnormal Negative [facility] Comment on above: Performed By: #### U AMRC #### [facility] [address] [place] [address] RBC None Seen Normal 0 - 2 [facility] Comment on above: Performed By: #### U AMRC #### [facility] [address] [place] [address] Specific gravity (U) [Rel density] 1.020 Normal 1.015-1.025 [facility] Comment on above: Performed By: #### U AMRC #### [facility] [address] [place] [address] Trichomonas [employer] Normal [facility] Comment on above: Performed By: #### U AMRC #### [id number] [place] [address] Urobilinogen NORMAL Normal Normal-1.0 [facility] Comment on above: Performed By: #### U AMRC #### [facility] [address] [place] [address] WBC 0-2 Normal 0 - 6 [facility] Comment on above: Performed By: #### U AMRC #### [facility] [address] [place] [address] Yeast [employer] Normal [facility] Comment on above: Performed By: #### U AMRC #### [facility] [address] [place] [address] Other [employer]ACH[employer] Normal [facility] Comment on above: Performed By: #### U AMRC #### [facility] [address] [place] [address] Urine appearance determinati onOrdered By: VIET MARIA on 12-13-2024 Appearance (U) Appearance ur Clear [facility] Urine color determinationOrd ered By: VIET MARIA on 12-13-2024 Color (U) Color ur Yellow [facility] Urine epithelial cells detec tionOrdered By: VIET MARIA on 12-13-2024 Epithelial cells Ql (U) Urine epithelial cells detection 0 - 6 [facility] Urine glucose measurement by test strip (mass/volume)Ordered By: VIET MARIA on 12-13-2024 Glucose Test strip (U) [Mass/Vol] Urine glucose measurement by test strip (mass/volume) Negative [facility] Urine leukocytes count (numb er/volume)Ordered By: VIET MARIA on 12-13-2024 WBC (U) [#/Vol] Urine leukocytes cou nt (number/volume) 0 - 6 [facility] Urine total bilirubin detect ionOrdered By: VIET MARIA on 12-13-2024 Bilirubin Ql (U) Urine total bilirubi n detection Negative [facility] Urine urobilinogen measureme ntOrdered By: VIET MARIA on 12-13-2024 Urobilinogen Ql (U) Urine urobilinogen measurement Normal-1.0 [facility] Whole blood hemoglobin measu rement (mass/volume)Ordered By: VIET MARIA on 12-13-2024 Hemoglobin (Bld) [Mass/Vol] Whole blood hemoglobin measurement (mass/volume) High 11.1-13.7 [facility] pH Test strip (U)Ordered By: VIET MARIA on 12-13-2024 pH (U) Urine pH measurement by dipstick [facility] ED MED ADMINISTRATION DETAIL on 12-01-2024 ED MED ADMINISTRATION DETAIL Normal [facility] ED NURSES CLINICAL NOTEon ED NURSES CLINICAL NOTE Normal [facility] ED ORDER SHEET (CPOE ONLY)on 12-01-2024 ED ORDER SHEET (CPOE ONLY) Normal [facility] ED PHYSICIAN CLINICAL REPORT on 12-01-2024 ED PHYSICIAN CLINICAL REPORT Normal [facility] ED PHYSICIAN DISCHARGE REPOR Ton 12-01-2024 ED PHYSICIAN DISCHARGE REPORT Normal [facility] ED SUPER BILLon 12-01-2024 ED SUPER BILL Normal [facility] ED VISIT SUMMARYon 5 ED VISIT SUMMARY Normal [facility] ED VITALS FLOW SHEETon 12-01 ED VITALS FLOW SHEET Normal [facility] ED MED ADMINISTRATION DETAIL on 11-28-2024 ED MED ADMINISTRATION DETAIL Normal [facility] ED NURSES CLINICAL NOTEon ED NURSES CLINICAL NOTE Normal [facility] ED ORDER SHEET (CPOE ONLY)on 11-28-2024 ED ORDER SHEET (CPOE ONLY) Normal [facility] ED PHYSICIAN CLINICAL REPORT on 11-28-2024 ED PHYSICIAN CLINICAL REPORT Normal [facility] ED PHYSICIAN DISCHARGE REPOR Ton 11-28-2024 ED PHYSICIAN DISCHARGE REPORT Normal [facility] ED SUPER BILLon 11-28-2024 ED SUPER BILL Normal [facility] ED VISIT SUMMARYon ED VISIT SUMMARY Normal [facility] ED VITALS FLOW SHEETon 11-28 ED VITALS FLOW SHEET Normal [facility] BMP with eGFRon 11-27-2024 AGE 29 years Normal [facility] Comment on above: Performed By: #### 2 [id number] ####[facility],[address] [place] [address] Anion gap [Moles/Vol] 12 mmol/L Normal 10 - 20 [facility] Comment on above: Performed By: #### 2 [id number] ####[facility],[address] [place] [address] BMP with eGFR Normal [facility] Comment on above: Result Comment: BASI C METABOLIC PANEL Performed By: #### 2 [id number] ####[facility],[address] [place], [place] [id number] Calcium [Mass/Vol] 8.0 mg/dL Low 8.5 - 10.1 [facility] Comment on above: Performed By: #### 2 [id number] ####[facility],[address] [place] [address] Chloride [Moles/Vol] 102 mmol/L Normal 98 - 107 [facility] Comment on above: Performed By: #### 2 [id number] ####[facility],[address] [place], [place] [id number] CO2 [Moles/Vol] 27.4 mmol/L Normal 21.0 - 32.0 [facility] Comment on above: Performed By: #### 2 30508 ####[facility],[address] [place] [address] Creatinine [Mass/Vol] 0.78 mg/dL Normal 0.55 - 1.02 [facility] Comment on above: Performed By: #### 2 78908 ####[facility],[address] [place] [address] GFR/1.73 sq M.predicted among non-blacks MDRD (S/P/Bld) [Vol rate/Area] mL/min/{1.73_m2} Normal 60 - 999 [facility] Comment on above: Performed By: #### 2 [id number] ####[facility],[address] [place] [address] Result Comment: ACCO RDING TO THE NATIONAL KIDNEY DISEASE EDUCATION PROGRAM(NKDE), A NORMAL eGFRIS A VALUE GREATER THAN OR EQUAL TO 60 ML/MIN/1.73 SQ METERS.CHRONIC KIDNEY DISEASE: <60mL/MIN/1.73 SQ METERSKIDNEY FAILURE: <15mL/MIN/1.73 SQ METERSTHIS TEST SHOULD ONLY BE USED FOR PATIENTS 18 YEARS OF AGE AND OLDER. Glucose [Mass/Vol] 117 mg/dL High 74 - 106 [facility] Comment on above: Performed By: #### 2 [id number] ####[facility],[address] [place], [place] [id number] Potassium [Moles/Vol] 2.9 mmol/L Critically low 3.5 - 5.1 [facility] Comment on above: Result Comment: { CA LLED TO JOSEPH BHAT BY TR @ 0585{ READ BACK BY JOSEPH BHAT RA @ 0594 Performed By: #### 2 [id number] ####[facility],[address] [place] [address] Sodium [Moles/Vol] 138 mmol/L Normal 136 - 145 [facility] Comment on above: Performed By: #### 2 [id number] ####[facility],[address] [place] [address] Urea nitrogen [Mass/Vol] 13 mg/dL Normal 7 - 18 [facility] Comment on above: Performed By: #### 2 [id number] ####[facility],[address] [place] [address] CBC + DIFFon 11-27-2024 Baso # 0.04 [id number]/UL Normal 0.00 - 0.10 [facility] Comment on above: Performed By: #### 2 90119 ####[facility],[address] [place] [address] Basophils/100 WBC (Bld) 0.4 % Normal 0.0 - 2.0 [facility] Comment on above: Performed By: #### 2 34761 ####[address] [address] CBC + DIFF Normal [facility] Comment on above: Result Comment: CBC- COMPLETE BLOOD COUNT Performed By: #### 2 00941 ####[facility],[address] [place] [address] 74765 EO # 0.64 x10EE3/UL High 0.00 - 0.50 [facility] Comment on above: Performed By: #### 2 73870 ####[address] [address] Eosinophils/100 WBC (Bld) 6.3 % Normal 0.0 - 7.0 [facility] Comment on above: Performed By: #### 2 25118 ####[facility],[address] [place], [place] [id number] Erythrocyte distribution width (RBC) [Ratio] 13.2 % Normal 12.0 - 15.6 [facility] Comment on above: Performed By: #### 2 53708 ####[facility],[address] [place] [address] 76503 Hematocrit (Bld) [Volume fraction] 44.2 % Normal 34.0 - 46.0 [facility] Comment on above: Performed By: #### 2 24328 ####[facility],[address] [place] [address] Hemoglobin (Bld) [Mass/Vol] 15.5 g/dL Normal 12.0 - 16.0 [facility] Comment on above: Performed By: #### 2 86036 ####[facility],[address] [place] [address] Lymph # 2.50 x10EE3/UL Normal 0.80 - 2.80 [facility] Comment on above: Performed By: #### 2 14594 ####[facility],[address] [place] [address] 75954 Lymphocytes/100 WBC (Bld) 24.5 % Normal 20.0 - 45.0 [facility] Comment on above: Performed By: #### 2 30772 ####[facility],[address] [place] [address] 73618 MANUAL DIFF N/A Normal [facility] Comment on above: Performed By: #### 2 56333 ####[facility],[address] [place] [address] 40481 MCH (RBC) [Entitic mass] 31 pg Normal 27 - 33 [facility] Comment on above: Performed By: #### 2 21521 ####[facility],[address] [place] [address] 47276 MCHC 35 X10 3 Normal 32 - 36 [facility] Comment on above: Performed By: #### 2 61218 ####[facility],[address] [place] [address] 02980 MCV (RBC) [Entitic vol] 87 fL Normal 80 - 99 [facility] Comment on above: Performed By: #### 2 59369 ####[facility],[address] [place] [address] 08937 [place] # 0.64 x10EE3/UL Normal 0.20 - 1.00 [facility] Comment on above: Performed By: #### 2 37584 ####[facility],[address] [place] [address] 35730 MONOS % 6.3 % Normal 0.0 - 10.0 [facility] Comment on above: Performed By: #### 2 95950 ####[facility],[address] [place] [address] 11741 Morphology Kamlesh (Bld) [Interp] N/A Normal [facility] Comment on above: Performed By: #### 2 14988 ####[facility],[address] [place] [address] 96204 Neut # 6.40 x10EE3/UL Normal 1.50 - 7.10 [facility] Comment on above: Performed By: #### 2 58035 ####[facility],[address] [place] [address] 76249 Neutrophils/100 WBC (Bld) 62.6 % Normal 46.0 - 76.0 [facility] Comment on above: Performed By: #### 2 28882 ####[facility],[address] [place] [address] 01941 PLATELET 272 x10EE3/UL Normal 150 - 450 [facility] Comment on above: Performed By: #### 2 45785 ####[facility],[address] [place] [address] 08005 Platelet mean volume (Bld) [Entitic vol] 7.6 fL Normal 6.6 - 10.5 [facility] Comment on above: Result Comment: AUTO MATED DIFFERENTIAL Performed By: #### 2 93893 ####[facility],[address] [place] [address] 26802 RBC 5.06 x 10EE6/UL Normal 4.10 - 5.30 [facility] Comment on above: Performed By: #### 2 69637 ####[facility],[address] [place] [address] 68775 WBC 10.2 x 10EE3/UL Normal 4.5 - 10.8 [facility] Comment on above: Performed By: #### 2 28463 ####[facility],[address] [place] [address] CHEST 1 VIEWon 11-27-2024 CHEST 1 VIEW Normal [facility] D-DIMER, QUANTITATIVEon 11-04 D-DIMER QUANT <200 Normal 0 - 230 [facility] Comment on above: Performed By: #### 2 08630 ####[facility],[address] [place] [address] D-DIMER, QUANTITATIVE Normal [facility] Comment on above: Result Comment: TREMAYNE T D-DIMER Performed By: #### 2 36523 ####[facility],[address] [place], [place] [id number] TROPONINon 11-27-2024 HS TROPONIN 30.2 pg/mL Normal 0.0 - 51.4 [facility] Comment on above: Performed By: #### 2 92103 ####[facility],[address] [place], [place] [id number] ED MED ADMINISTRATION DETAIL on 11-20-2024 ED MED ADMINISTRATION DETAIL Normal [facility] ED NURSES CLINICAL NOTEon ED NURSES CLINICAL NOTE Normal [facility] ED ORDER SHEET (CP[facility] ONLY)on 11-20-2024 ED ORDER SHEET (CPOE ONLY) Normal [facility] ED PHYSICIAN CLINICAL REPORT on 11-20-2024 ED PHYSICIAN CLINICAL REPORT Normal [facility] ED PHYSICIAN DISCHARGE REPOR Ton 11-20-2024 ED PHYSICIAN DISCHARGE REPORT Normal [facility] ED SUPER BILLon 11-20-2024 ED SUPER BILL Normal [facility] ED VISIT SUMMARYon ED VISIT SUMMARY Normal [facility] ED VITALS FLOW SHEETon 11-20 ED VITALS FLOW SHEET Normal [facility] TROPONINon 11-20-2024 HS TROPONIN 19.1 pg/mL Normal 0.0 - 51.4 [facility] Comment on above: Performed By: #### 2 12348 ####[facility],[address] [place] [address] 72182 BMP with eGFRon 11-19-2024 AGE 29 years Normal [facility] Comment on above: Performed By: #### 2 33506 ####[facility],[address] [place] [address] 56557 Anion gap [Moles/Vol] 16 mmol/L Normal 10 - 20 [facility] Comment on above: Performed By: #### 2 10473 ####[facility],[address] [place] [address] 84326 BMP with eGFR Normal [facility] Comment on above: Result Comment: BASI C METABOLIC PANEL Performed By: #### 2 52749 ####[facility],[address] [place] [address] 09969 Calcium [Mass/Vol] 8.2 mg/dL Low 8.5 - 10.1 [facility] Comment on above: Performed By: #### 2 78420 ####[facility],[address] [place] [address] 60257 Chloride [Moles/Vol] 103 mmol/L Normal 98 - 107 [facility] Comment on above: Performed By: #### 2 35261 ####[facility],[address] [place] [address] 53979 CO2 [Moles/Vol] 26.4 mmol/L Normal 21.0 - 32.0 [facility] Comment on above: Performed By: #### 2 12605 ####[facility],[address] [place] [address] 37065 Creatinine [Mass/Vol] 1.01 mg/dL Normal 0.55 - 1.02 [facility] Comment on above: Performed By: #### 2 93194 ####[facility],[address] [place] [address] 50218 GFR/1.73 sq M.predicted among non-blacks MDRD (S/P/Bld) [Vol rate/Area] mL/min/{1.73_m2} Normal 60 - 999 [facility] Comment on above: Performed By: #### 2 56753 ####[facility],[address] [place], [place] [address] Result Comment: ACCO RDING TO THE NATIONAL KIDNEY DISEASE EDUCATION PROGRAM(NKDE), A NORMAL eGFRIS A VALUE GREATER THAN OR EQUAL TO 60 ML/MIN/1.73 SQ METERS.CHRONIC KIDNEY DISEASE: <60mL/MIN/1.73 SQ METERSKIDNEY FAILURE: <15mL/MIN/1.73 SQ METERSTHIS TEST SHOULD ONLY BE USED FOR PATIENTS 18 YEARS OF AGE AND OLDER. Glucose [Mass/Vol] 111 mg/dL High 74 - 106 [facility] Comment on above: Performed By: #### 2 99179 ####[facility],[address] [place] [address] 89772 Potassium [Moles/Vol] 3.2 mmol/L Low 3.5 - 5.1 [facility] Comment on above: Performed By: #### 2 48751 ####[facility],[address] [place] [address] 81201 Sodium [Moles/Vol] 142 mmol/L Normal 136 - 145 [facility] Comment on above: Performed By: #### 2 20484 ####[facility],[address] [place] [address] 03158 Urea nitrogen [Mass/Vol] 14 mg/dL Normal 7 - 18 [facility] Comment on above: Performed By: #### 2 51063 ####[facility],[address] [place] [address] 30597 CBC + DIFFon 11-19-2024 Baso # 0.03 x10EE3/UL Normal 0.00 - 0.10 [facility] Comment on above: Performed By: #### 2 14242 ####[facility],[address] [place] [address] 60935 Basophils/100 WBC (Bld) 0.2 % Normal 0.0 - 2.0 [facility] Comment on above: Performed By: #### 2 26721 ####[facility],[address] [place] [address] 40625 CBC + DIFF Normal [facility] Comment on above: Result Comment: CBC- COMPLETE BLOOD COUNT Performed By: #### 2 29899 ####[facility],[address] [place] [address] 05724 EO # 1.23 x10EE3/UL High 0.00 - 0.50 [facility] Comment on above: Performed By: #### 2 20044 ####[facility],[address] [place] [address] 28696 Eosinophils/100 WBC (Bld) 8.8 % High 0.0 - 7.0 [facility] Comment on above: Performed By: #### 2 00313 ####[facility],[address] [place] [address] 42135 Erythrocyte distribution width (RBC) [Ratio] 14.0 % Normal 12.0 - 15.6 [facility] Comment on above: Performed By: #### 2 65610 ####[facility],[address] [place] [address] 97995 Hematocrit (Bld) [Volume fraction] 46.6 % High 34.0 - 46.0 [facility] Comment on above: Performed By: #### 2 15129 ####[facility],[address] [place] [address] 62097 Hemoglobin (Bld) [Mass/Vol] 16.1 g/dL High 12.0 - 16.0 [facility] Comment on above: Performed By: #### 2 65355 ####[facility],[address] [place] [address] Lymph # 3.53 x10EE3/UL High 0.80 - 2.80 [facility] Comment on above: Performed By: #### 2 01849 ####[facility],[address] [place] [address] Lymphocytes/100 WBC (Bld) 25.2 % Normal 20.0 - 45.0 [facility] Comment on above: Performed By: #### 2 47249 ####[facility],[address] [place] [address] MANUAL DIFF N/A Normal [facility] Comment on above: Performed By: #### 2 32428 ####[facility],[address] [place] [address] MCH (RBC) [Entitic mass] 30 pg Normal 27 - 33 [facility] Comment on above: Performed By: #### 2 41823 ####[place] [address] MCHC 35 X10 3 Normal 32 - 36 [facility] Comment on above: Performed By: #### 2 31862 ####[facility],[address] [place] [address] MCV (RBC) [Entitic vol] 87 fL Normal 80 - 99 [facility] Comment on above: Performed By: #### 2 29849 ####[facility],[address] [place] [address] [place] # 0.60 x10EE3/UL Normal 0.20 - 1.00 [facility] Comment on above: Performed By: #### 2 79007 ####[place] [address] MONOS % 4.3 % Normal 0.0 - 10.0 [facility] Comment on above: Performed By: #### 2 80209 ####[facility],[address] [place] [address] 80829 Morphology Kamlesh (Bld) [Interp] N/A Normal [facility] Comment on above: Performed By: #### 2 15435 ####[facility],[address] [place] [address] 18262 Neut # 8.60 x10EE3/UL High 1.50 - 7.10 [facility] Comment on above: Performed By: #### 2 04411 ####[place] [address] Neutrophils/100 WBC (Bld) 61.4 % Normal 46.0 - 76.0 [facility] Comment on above: Performed By: #### 2 72881 ####[place] [address] PLATELET 330 x10EE3/UL Normal 150 - 450 [facility] Comment on above: Performed By: #### 2 29660 ####[place] [address] Platelet mean volume (Bld) [Entitic vol] 7.7 fL Normal 6.6 - 10.5 [facility] Comment on above: Result Comment: AUTO MATED DIFFERENTIAL Performed By: #### 2 40317 ####[address] [address] RBC 5.36 x 10EE6/UL High 4.10 - 5.30 [facility] Comment on above: Performed By: #### 2 01131 ####[address] [address] WBC 14.0 x 10EE3/UL High 4.5 - 10.8 [facility] Comment on above: Performed By: #### 2 35327 ####[facility],[address] [place], [place] [id number] CHEST 1 VIEWon 11-19-2024 CHEST 1 VIEW Normal [facility] TROPONINon 11-19-2024 HS TROPONIN 21.9 pg/mL Normal 0.0 - 51.4 [facility] Comment on above: Performed By: #### 2 52553 ####[facility],[address] [place] [address] 48055 CBC + DIFFon 11-06-2024 Baso # 0.02 x10EE3/UL Normal 0.00 - 0.10 [facility] Comment on above: Performed By: #### 2 13695 ####[facility],[address] [place] [address] 44656 Basophils/100 WBC (Bld) 0.2 % Normal 0.0 - 2.0 [facility] Comment on above: Performed By: #### 2 83599 ####[facility],[address] [place] [address] CBC + DIFF Normal [facility] Comment on above: Result Comment: CBC- COMPLETE BLOOD COUNT Performed By: #### 2 07854 ####[facility],[address] [place] [address] 10115 EO # 0.26 x10EE3/UL Normal 0.00 - 0.50 [facility] Comment on above: Performed By: #### 2 00689 ####[facility],[address] [place] [address] 34670 Eosinophils/100 WBC (Bld) 2.8 % Normal 0.0 - 7.0 [facility] Comment on above: Performed By: #### 2 31895 ####[facility],[address] [place] [address] 36346 Erythrocyte distribution width (RBC) [Ratio] 13.8 % Normal 12.0 - 15.6 [facility] Comment on above: Performed By: #### 2 03437 ####[facility],[address] [place] [address] 74612 Hematocrit (Bld) [Volume fraction] 45.2 % Normal 34.0 - 46.0 [facility] Comment on above: Performed By: #### 2 91676 ####[facility],[address] [place] [address] Hemoglobin (Bld) [Mass/Vol] 15.6 g/dL Normal 12.0 - 16.0 [facility] Comment on above: Performed By: #### 2 09013 ####[facility],[address] [place] [address] Lymph # 1.79 x10EE3/UL Normal 0.80 - 2.80 [facility] Comment on above: Performed By: #### 2 65549 ####[facility],[address] [place] [address] Lymphocytes/100 WBC (Bld) 19.1 % Low 20.0 - 45.0 [facility] Comment on above: Performed By: #### 2 12705 ####[facility],[address] [place] [address] MANUAL DIFF N/A Normal [facility] Comment on above: Performed By: #### 2 28897 ####[facility],[address] [place] [address] MCH (RBC) [Entitic mass] 30 pg Normal 27 - 33 [facility] Comment on above: Performed By: #### 2 34404 ####[facility],[address] [place] [address] MCHC 34 X10 3 Normal 32 - 36 [facility] Comment on above: Performed By: #### 2 74508 ####[facility],[address] [place], [place] [address] MCV (RBC) [Entitic vol] 86 fL Normal 80 - 99 [facility] Comment on above: Performed By: #### 2 50313 ####[facility],[address] [place] [address] [place] # 0.43 x10EE3/UL Normal 0.20 - 1.00 [facility] Comment on above: Performed By: #### 2 36224 ####[facility],[address] [place] [address] 00314 MONOS % 4.6 % Normal 0.0 - 10.0 [facility] Comment on above: Performed By: #### 2 94927 ####[facility],[address] [place] [address] Morphology Kamlesh (Bld) [Interp] N/A Normal [facility] Comment on above: Performed By: #### 2 06025 ####[facility],[address] [place] [address] Neut # 6.87 x10EE3/UL Normal 1.50 - 7.10 [facility] Comment on above: Performed By: #### 2 76688 ####[place] [address] Neutrophils/100 WBC (Bld) 73.4 % Normal 46.0 - 76.0 [facility] Comment on above: Performed By: #### 2 55358 ####[place] [address] PLATELET 288 x10EE3/UL Normal 150 - 450 [facility] Comment on above: Performed By: #### 2 27398 ####[facility],[address] [place] [address] Platelet mean volume (Bld) [Entitic vol] 8.0 fL Normal 6.6 - 10.5 [facility] Comment on above: Result Comment: AUTO MATED DIFFERENTIAL Performed By: #### 2 22447 ####[place] [id number] RBC 5.26 x 10EE6/UL Normal 4.10 - 5.30 [facility] Comment on above: Performed By: #### 2 85148 ####[facility],[address],[place] [address] WBC 9.4 x 10EE3/UL Normal 4.5 - 10.8 [facility] Comment on above: Performed By: #### 2 36195 ####[facility],[address] [place] [address] 69391 CHEST 2 VIEWSon 11-06-2024 CHEST 2 VIEWS Normal [facility] CMP with eGFRon 11-06-2024 AGE 29 years Normal [facility] Comment on above: Performed By: #### 2 31423 ####[facility],[address] [place] [address] 92159 Albumin [Mass/Vol] 3.5 g/dL Normal 3.4 - 5.0 [facility] Comment on above: Performed By: #### 2 19815 ####[facility],[address] [place] [address] 29127 Albumin/Globulin [Mass ratio] 0.9 {ratio} Normal 0.9 - 1.6 [facility] Comment on above: Performed By: #### 2 89264 ####[facility],[address] [place] [address] 27813 ALK PHOS 95 U/L Normal 46 - 116 [facility] Comment on above: Performed By: #### 2 07945 ####[facility],[address] [place] [address] 38756 ALT [Catalytic activity/Vol] 37 U/L Normal 16 - 63 [facility] Comment on above: Performed By: #### 2 07911 ####[facility],[address] [place] [address] 33736 Anion gap [Moles/Vol] 12 mmol/L Normal 10 - 20 [facility] Comment on above: Performed By: #### 2 08233 ####[facility],[address] [place] [address] 83040 AST [Catalytic activity/Vol] 19 U/L Normal 13 - 39 [facility] Comment on above: Performed By: #### 2 10556 ####[facility],[address] [place] [address] 40612 B/C RATIO 15 ratio Normal 0 - 30 [facility] Comment on above: Performed By: #### 2 24796 ####[facility],[address] [place] [address] 81744 Bilirubin [Mass/Vol] 0.3 mg/dL Normal 0.2 - 1.0 [facility] Comment on above: Performed By: #### 2 77299 ####[facility],[address] [place] [address] 21775 Calcium [Mass/Vol] 8.9 mg/dL Normal 8.5 - 10.1 [facility] Comment on above: Performed By: #### 2 35764 ####[facility],[address] [place] [address] 56121 Chloride [Moles/Vol] 103 mmol/L Normal 98 - 107 [facility] Comment on above: Performed By: #### 2 11849 ####[facility],[address] [place] [address] 93227 CMP with eGFR Normal [facility] Comment on above: Result Comment: COMP REHENSIVE METABOLIC PANEL Performed By: #### 2 74407 ####[facility],[address] [place] [address] 56054 CO2 [Moles/Vol] 27.0 mmol/L Normal 21.0 - 32.0 [facility] Comment on above: Performed By: #### 2 33506 ####[facility],[address] [place] [address] 27536 Creatinine [Mass/Vol] 0.62 mg/dL Normal 0.55 - 1.02 [facility] Comment on above: Performed By: #### 2 69571 ####[facility],[address] [place] [address] 24818 GFR/1.73 sq M.predicted among non-blacks MDRD (S/P/Bld) [Vol rate/Area] mL/min/{1.73_m2} Normal 60 - 999 [facility] Comment on above: Performed By: #### 2 92532 ####[facility],[address] [place] [address] 93804 Result Comment: ACCO RDING TO THE NATIONAL KIDNEY DISEASE EDUCATION PROGRAM(NKDE), A NORMAL eGFRIS A VALUE GREATER THAN OR EQUAL TO 60 ML/MIN/1.73 SQ METERS.CHRONIC KIDNEY DISEASE: <60mL/MIN/1.73 SQ METERSKIDNEY FAILURE: <15mL/MIN/1.73 SQ METERSTHIS TEST SHOULD ONLY BE USED FOR PATIENTS 18 YEARS OF AGE AND OLDER. Globulin (S) [Mass/Vol] 3.7 g/dL Normal 1.5 - 3.8 [facility] Comment on above: Performed By: #### 2 06466 ####[address] [address] Glucose [Mass/Vol] 112 mg/dL High 74 - 106 [facility] Comment on above: Performed By: #### 2 52109 ####[address] [address] Potassium [Moles/Vol] 3.4 mmol/L Low 3.5 - 5.1 [facility] Comment on above: Performed By: #### 2 62186 ####[facility],[address] [place] [address] 27716 Protein [Mass/Vol] 7.2 g/dL Normal 6.4 - 8.2 [facility] Comment on above: Performed By: #### 2 23603 ####[address] [address] Sodium [Moles/Vol] 139 mmol/L Normal 136 - 145 [facility] Comment on above: Performed By: #### 2 79896 ####[address] [address] Urea nitrogen [Mass/Vol] 9 mg/dL Normal 7 - 18 [facility] Comment on above: Performed By: #### 2 39922 ####[facility],[address] [place] [address] 83282 CORONAVIRUS (SARS) ANTIGEN T ESTon 11-06-2024 EXTERNAL QC DONE? YES Normal [facility] Comment on above: Performed By: #### 2 79467 ####[facility],[address] [place] [address] 97733 INTERNAL CONTROL PASS Normal [facility] Comment on above: Performed By: #### 2 82375 ####[facility],[address] [place] [address] 44333 SARS ANTIGEN Negative Normal NORMAL: NEGATIVE [facility] Comment on above: Performed By: #### 2 67156 ####[facility],[address] [place] [address] 14213 SEND TO ? YES Normal [facility] Comment on above: Result Comment: SARS -CoV-2THIS TEST IS BEING USED UNDER THE FDA EUA PROCEDURE. THIS ASSAY HAS BEENVALIDATED AT [facility] FOR USE WITH NASAL AND NASOPHARYNGEAL SWABSPECIMENS.INTERPRETIVE DATATEST RESULTS SHOULD ALWAYS BE CONSIDERED IN THE CONTEXT OF CLINICALOBSERVATIONS AND EPIDEMIOLOGICAL DATA IN MAKING FINAL DIAGNOSIS AND PATIENTMANAGEMENT DECISIONS. PATIENT MANAGEMENT SHOULD FOLLOW CURRENT CDC GUIDELINES.THE NELL SARS ANTIGEN MARJAN DOES NOT DIFFERENTIATE BETWEEN SARS-CoV & SARS-CoV-2.A POSITIVE TEST RESULT INDICATES THE PRESENCE OF SARS-CoV-2 NUCLEOCAPSID PROTEINANTIGEN, AND THE PATIENT IS INFECTED WITH THE VIRUS AND PRESUMED TO BECONTAGIOUS.A NEGATIVE TEST RESULT FOR THIS TEST MEANS THAT SARS-CoV-2 NUCLEOCAPSID PROTEINANTIGEN WAS NOT PRESENT IN THE SPECIMEN ABOVE THE LIMIT OF DETECTION. HOWEVER, ANEGATIVE RESULT DOES NOT RULE OUT COVID-19 AND SHOULD NOT BE USED THE SOLEBASIS FOR TREATMENT OR PATIENT MANAGEMENT DECISIONS. A NEGATIVE RESULT DOES NOTEXCLUDE THE POSSIBILITY OF COVID-19. NEGATIVE RESULTS, FROM PATIENTS WITHSYMPTOM ONSET BEYOND FIVE DAYS, SHOULD BE TREATED PRESUMPTIVE ANDCONFIRMATION WITH A MOLECULAR ASSAY, IF NECESSARY, FOR PATIENT MANAGEMENT, MAYBE PERFORMED.WHEN DIAGNOSTIC TESTING IS NEGATIVE, THE POSSIBLILTY OF A FALSE NEGATIVE RESULTSHOULD BE CONSIDERED IN THE CONTEXT OF A PATIENT'S RECENT EXPOSURES AND THEPRESENCE OF CLINICAL SIGNS AND SYMPTOMS CONSISTENT WITH COVID-19. THEPOSSIBILITY OF A FALSE NEGATIVE RESULT SHOULD ESPECIALLY BE CONSIDERED IF THEPATIENT'S RECENT EXPOSURES OR CLINICAL PRESENTATION INDICATE THAT COVID-19 ISLIKELY, AND DIAGNOSTIC TESTS FOR OTHER CAUSES OF ILLNESS (e.g., OTHERRESPIRATORY ILLNESS) ARE NEGATIVE. IF COVID-19 IS STILL SUSPECTED BASED ONEXPOSURE HISTORY TOGETHER WITH OTHER CLINICAL FINDINGS, RE-TESTING SHOULD BECONSIDERED BY HEALTHCARE PROVIDERS IN CONSULTATION WITH [facility]. Performed By: #### 2 [id number] ####[facility],[address] [place], [place] [id number] CT CHEST (PE PROTOCOL)on CT CHEST (PE PROTOCOL) Normal [facility] INFLUENZA VIRUS RAPID A/Bon 11-06-2024 INFLUENZA VIRUS RAPID A/B Normal [facility] Comment on above: Performed By: #### 2 26015 ####[facility],[address] [place] [address]13 LACTATEon 11-06-2024 Lactate [Moles/Vol] 1.1 mmol/L Normal 0.4 - 2.0 [facility] Comment on above: Performed By: #### 2 36767 ####[facility],[address] [place] [address]69 Abdomen/Pelvis without Conto n 07-30-2024 Abdomen/Pelvis without Cont 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 Abdominal pain. RADIATION DOSAGE (If Supplied By Facility): CTDIvol = ( 24.18 ) mGy, DLP = ( 1480.07 ) mGycm TECHNIQUE: Transaxial images were obtained from the dome of the diaphragm to the symphysis pubis without oral contrast, and without intravenous contrast. Sagittal and coronal images were reconstructed. Individualized dose optimization techniques were used for this CT. COMPARISON: Comparison is made with prior study dated February 09, 2021. FINDINGS: The visualized lung bases are unremarkable. The visualized portions of the heart are within normal limits. Normal liver. There are surgical clips in the gallbladder fossa consistent with a prior cholecystectomy. Normal spleen. Normal pancreas. Normal bilateral adrenal glands. Normal right kidney. Normal left kidney. There is a small hiatal hernia. Normal small intestine. Normal colon. The appendix is visualized and appears normal. Normal abdominal aorta. Normal inferior vena cava. Normal retroperitoneum. Normal urinary bladder. There is a 3.7 cm by 4 cm cyst in the right ovary. IUD is seen within the endometrium. There is a small umbilical hernia containing fat. Normal osseous structures. CT/Abdomen/Pelvis without Cont IMPRESSION: 3.7 cm x 4 cm cyst in the right ovary. IUD is seen within the endometrium. The patient is status post cholecystectomy. Electronically Signed: Familia Lai MD at 15:07 EDT , CC: JUDD SPEAR. Tia Núñez; Dr. Laureen Rodriges DO Cooler Servicer: Signed Normal [facility] Basic Metabolic Profile (BMP )on 07-30-2024 BUN/CRE 13.2 RATIO Normal 10-20 [facility] Comment on above: Performed By: #### L 100.0100, L700.6800, L500.2500 ####[facility] [address] [place], [address] CA,Total 8.8 mg/dL Normal 8.5-10.1 [facility] Comment on above: Performed By: #### L 100.0100, L700.6800, L500.2500 ####[facility] [address] [place], [address] Chloride [Moles/Vol] 108 mmol/L High 98-107 [facility] Comment on above: Performed By: #### L 100.0100, L700.6800, L500.2500 ####[facility] [address] [place], [address] CO2 [Moles/Vol] 24.0 mmol/L Normal 21.0-32.0 [facility] Comment on above: Performed By: #### L 100.0100, L700.6800, L500.2500 ####[facility] [address] [place], [address] Creatinine [Mass/Vol] 0.68 mg/dL Normal 0.55-1.02 [facility] Comment on above: Result Comment: The validity of the calculated GFR GFRAA in patients over 70 years has not been determined. Clinical correlation is essential. Performed By: #### L 100.0100, L700.6800, L500.2500 ####[facility] [address] [place], [address] ECRCL 178.76 ml/min Normal [facility] Comment on above: Performed By: #### L 100.0100, L700.6800, L500.2500 ####[facility] [address] [place], [address] EST GFR - AA 130 mL/min Normal >60 [facility] Comment on above: Result Comment: Afri can Filipino GFR Calc Performed By: #### L 100.0100, L700.6800, L500.2500 ####[facility] [address] [place], [address] GAP 6 Normal 5-15 [facility] Comment on above: Performed By: #### L 100.0100, L700.6800, L500.2500 ####[facility] [address] [place], [address] GFR/1.73 sq M.predicted among non-blacks MDRD (S/P/Bld) [Vol rate/Area] 108 mL/min/{1.73_m2} Normal >60 [facility] Comment on above: Result Comment: Non- GFR Calc Performed By: #### L 100.0100, L700.6800, L500.2500 ####[facility] [address] [place], [address] Glucose [Mass/Vol] 104 mg/dL Normal 74-106 [facility] Comment on above: Result Comment: Fast ing Glucose result from 100 to 125 mg/dL suggests IMPAIRED HOMEOSTASIS per A.D.A. criteria. Performed By: #### L 100.0100, L700.6800, L500.2500 ####[facility] [address] [place], [address] Potassium [Moles/Vol] 3.1 mmol/L Low 3.5-5.1 [facility] Comment on above: Performed By: #### L 100.0100, L700.6800, L500.2500 ####[facility] [address] [place], [address] Sodium [Moles/Vol] 138 mmol/L Normal 136-145 [facility] Comment on above: Performed By: #### L 100.0100, L700.6800, L500.2500 ####[facility] [address] [place], [address] Urea nitrogen [Mass/Vol] 9 mg/dL Normal 7-18 [facility] Comment on above: Performed By: #### L 100.0100, L700.6800, L500.2500 ####[facility] [address] [place], [address] CBC W/Diff, Automatedon 10-2 Absolute Lymph 2.09 X10 3/uL Normal 0.83-4.51 [facility] Comment on above: Performed By: #### L 100.0100, L700.6800, L500.2500 ####[facility] [address] [place], [address] Absolute Neut 7.2 X10 3/uL Normal 2.0-7.7 [facility] Comment on above: Performed By: #### L 100.0100, L700.6800, L500.2500 ####[facility] [address] [place], [address] Basophils/100 WBC (Bld) 0.8 % Normal 0-1 [facility] Comment on above: Performed By: #### L 100.0100, L700.6800, L500.2500 ####[facility] [address] [place], [address] Eosinophils/100 WBC (Bld) 1.9 % Normal 0-5 [facility] Comment on above: Performed By: #### L 100.0100, L700.6800, L500.2500 ####[facility] [address] [place], [address] Erythrocyte distribution width (RBC) [Ratio] 12.7 % Normal 11.6-14.6 [facility] Comment on above: Performed By: #### L 100.0100, L700.6800, L500.2500 ####[facility] [address] [place], [address] Hematocrit (Bld) [Volume fraction] 42.6 % Normal 37-47 [facility] Comment on above: Performed By: #### L 100.0100, L700.6800, L500.2500 ####[facility] [address] [place], [address] Hemoglobin (Bld) [Mass/Vol] 15.1 g/dL High 12.0-15.0 [facility] Comment on above: Performed By: #### L 100.0100, L700.6800, L500.2500 ####[facility] [address] [place], [address] IG% 0.200 Normal 0.0-0.9 [facility] Comment on above: Result Comment: IG% - Immature Granulocytes (promyelocytes, myelocytes and metamyelocytes) > 1% indicates that a LEFT SHIFT is Present. Performed By: #### L 100.0100, L700.6800, L500.2500 ####[facility] [address] [place], [address] Lymphocytes/100 WBC (Bld) 20.7 % Normal 19-41 [facility] Comment on above: Performed By: #### L 100.0100, L700.6800, L500.2500 ####[facility] [address] [place], [address] MCH (RBC) [Entitic mass] 29.7 pg Normal 27.0-32.0 [facility] Comment on above: Performed By: #### L 100.0100, L700.6800, L500.2500 ####[facility] [address] [place], [address] MCHC (RBC) [Mass/Vol] 35.4 g/dL Normal 32-36 [facility] Comment on above: Performed By: #### L 100.0100, L700.6800, L500.2500 ####[facility] [address] [place], [address] MCV (RBC) [Entitic vol] 83.9 fL Normal 81-99 [facility] Comment on above: Performed By: #### L 100.0100, L700.6800, L500.2500 ####[facility] [address] [place], [address] Monocytes/100 WBC (Bld) 5.7 % Normal 0-[address] [facility] Comment on above: Performed By: #### L 100.0100, L700.6800, L500.2500 ####[facility] [address] [place], [address] Neutrophils/100 WBC (Bld) 70.7 % High 47-70 [facility] Comment on above: Performed By: #### L 100.0100, L700.6800, L500.2500 ####[facility] [address] [place], [address] Nucleated RBC (Bld) [#/Vol] 0 10*3/uL Normal 0-5 [facility] Comment on above: Performed By: #### L 100.0100, L700.6800, L500.2500 ####[facility] [address] [place], [address] Platelet mean volume (Bld) [Entitic vol] 10.7 fL Normal 6.2-12.0 [facility] Comment on above: Performed By: #### L 100.0100, L700.6800, L500.2500 ####[facility] [address] [place], [address] Platelets (Bld) [#/Vol] 255 10*3/uL Normal 150-450 [facility] Comment on above: Performed By: #### L 100.0100, L700.6800, L500.2500 ####[facility] [address] [place], [address] RBC (Bld) [#/Vol] 5.08 10*6/uL Normal 4.2-5.4 [facility] Comment on above: Performed By: #### L 100.0100, L700.6800, L500.2500 ####[facility] [address] [place], [address] RDW SD 39.1 fl Normal 35.1-43.9 [facility] Comment on above: Performed By: #### L 100.0100, L700.6800, L500.2500 ####[facility] [address] [place], [address] WBC (Bld) [#/Vol] 10.1 10*3/uL Normal 4.4-11.0 [facility] Comment on above: Performed By: #### L 100.0100, L700.6800, L500.2500 ####[facility] [address] [place], [address] Emergency Department Summary on 07-30-2024 Emergency Department Summary [facility] Medical Records Department [address] [place] [address] Emergency Department Summary 07/30/24 MR#: [id number] Acct: [id number] Name: JESSICA ACUNA Rep #: [id number] : 1995 29 From: Laureen Rodriges DO PCP: JUDD Parham Status:DEP ER Location: ED HPI HPI - Female History of Present Illness Chief Complaint: Female C/O Detail of Chief Complaint: Abdominal pain Informant: patient Narrative Narrative: Patient presents to the emergency department with complaint of abdominal pain that started yesterday. Patient has an IUD and also started having some vaginal bleeding yesterday. Patient describes urinary frequency but no dysuria. She is noticing blood in the urine. She describes the pain as center of her abdomen radiating to the right side of the abdomen and into her right back. No history of kidney stones. She has had history of UTIs. She denies fevers or chills or sweats. [facility] Medical History Allergic rhinitis COVID-19 affecting childbirth Environmental allergies GERD (gastroesophageal reflux disease) Leukocytosis Non-smoker LUCY (obstructive sleep apnea) Home Medications ???Medication ???Instructions ???Recorded ???Last Taken ???Type levonorgestrel 21 mcg/24 hr (up to 1 insert intrauterine ONCE 11/26/21 Unknown History 8 years) 52 mg intrauterine device (Mirena) albuterol sulfate 2.5 mg/3 mL 2.5 mg (3 mL) inhalation Q4H PRN 12/21/22 Unknown Rx (0.083 %) solution for nebulization shortness of breath or wheezing #180 mL albuterol sulfate 90 mcg/actuation 1 puff inhalation Q6H #8.5 grams 12/21/22 Unknown Rx aerosol inhaler (Ventolin HFA) benzonatate 200 mg capsule 200 mg PO TID PRN cough #90 caps 12/21/22 Unknown Rx fluticasone furoate 200 1 inh inhalation DAILY #60 ea 12/21/22 Unknown Rx mcg-vilanterol 25 mcg/dose inhalation powder (Breo Ellipta) oxycodone-acetaminophen 5 mg-325 1 tab PO Q4H PRN 12/21/22 Unknown History mg tablet (Percocet) Nebulizer machine #1 ea 06/18/24 Unknown Rx hydrocodone-acetaminophe n 5-325mg 1 tab PO Q4H PRN PRN Pain 2 days 07/30/24 Unknown Rx 5mg-325mg #10 TABLETS Allergy/AdvReac Type Severity Reaction Status Date / Time Penicillins Allergy rash Verified 07/30/24 11:24 Family History Father CVA (cerebral vascular accident) Mother Intrinsic asthma Grandfather Diabetes COPD (chronic obstructive pulmonary disease) Surgical History History of foot surgery History of tonsillectomy S/P cholecystectomy Social History Smoking Status: Never smoker alcohol intake: never substance use type: does not use caffeine: Yes what type of physical activity do you participate in: none seatbelt use: always do you feel safe at home: Yes ROS ROS ED Review of Systems ROS Unobtainable: other Constitutional Constitutional ED: Reports lethargy; Denies chills, fever(s), sweats or weight loss Eyes Eyes: Denies blurry vision, change in vision or diplopia ENT ENT ED: Denies rhinorrhea or sore throat Cardiovascular Cardiovascular: Reports chest pain and racing heartbeat; Denies orthopnea Respiratory/Chest Respiratory/Chest: Reports dyspnea and dyspnea on exertion; Denies cough, orthopnea or sputum Gastrointestinal Gastrointestinal: Reports abdominal pain and nausea; Denies diarrhea or vomiting Genitourinary Genitourinary ED: Reports hematuria and urinary frequency; Denies dysuria Musculoskeletal Musculoskeletal: Denies arthralgias, back pain, myalgias or neck pain Integumentary Denies abscess, Abrasions or rash Neurologic Neurologic: Denies headache(s) or weakness Psychiatric Psychiatric: Denies anxiety, depression or suicidal thoughts Endocrine Endocrinology: Denies polydipsia, polyphagia or polyuria Hematologic/Lymphatic Hematologic/Lymphatic: Denies easy bleeding, easy bruising or lymphadenopathy Allergic/Immunologic Allergic/Immunologic ED: Denies mouth swelling, tongue swelling or urticaria EXAM Physical Exam Const Vital Signs: 07/30/24 11:22 07/30/24 13:56 Temperature 97.7 F L Temperature Source Oral Pulse Rate 77 75 Respiratory Rate 19 H 18 Blood Pressure 167/125 H 163/113 H Blood Pressure Mean 139 129 Pulse Ox 100 97 Oxygen Delivery Method Room Air Room Air Positive well nourished and well developed General Appearance ED: well developed and NAD HEENT Reports TM's clear and moist mucous membranes normocephalic and atraumatic; Negative for trauma or tenderness Tympanic Membrane ED: Yes TM's clear Eyes PERRL and EOMs intact b (more content not included)... Normal [facility] ,Serum,hCG Quali.on 07-30-2024 HCG, SERUM QUAL Negative Normal [facility] Comment on above: Performed By: #### L 100.0100, L700.6800, L500.2500 ####[facility] [address] [place], [address] Urinalysis, Completeon 07-30 BACTERIA 1+ /hpf Normal None Seen [facility] Comment on above: Order Comment: CLEAN CATCH Performed By: #### L 400.0001 #### [facility] [address] [place], [address] RBC 5-10 SEEN Normal 0-5 [facility] Comment on above: Order Comment: CLEAN CATCH Performed By: #### L 400.0001 #### [facility] [address] [place], [address] EPI,SQUAMOUS 0-5 SEEN Normal 5-10 [facility] Comment on above: Order Comment: CLEAN CATCH Performed By: #### L 400.0001 #### [facility] [address] [place], [address] Mucus Ql (Urine sed) 1+ /hpf Normal [facility] Comment on above: Order Comment: CLEAN CATCH Performed By: #### L 400.0001 #### [facility] [address] [place], [address] WBC 0 SEEN Normal 0-5 [facility] Comment on above: Order Comment: CLEAN CATCH Performed By: #### L 400.0001 #### [facility] [address] [place], [address] T4-FREE (FREE THYROXINE)on 0 06-28-2024 Free T4 [Mass/Vol] 0.87 ng/dL Normal 0.76 - 1.46 [facility] Comment on above: Result Comment: P otential of falsely elevated results when biotin concentrations are > 10ng/mL. Performed By: #### 2 35999 ####[facility],[address] [place] [address] TSHon 06-28-2024 TSH Qn 0.86 m[IU]/L Normal 0.35 - 3.74 [facility] Comment on above: Performed By: #### 2 54926 ####[facility],[address] [place] [address] CBC + DIFFon 06-17-2024 Baso # 0.03 x10EE3/UL Normal 0.00 - 0.10 [facility] Comment on above: Performed By: #### 2 29586 ####[facility],[address] [place] [address] Basophils/100 WBC (Bld) 0.4 % Normal 0.0 - 2.0 [facility] Comment on above: Performed By: #### 2 36460 ####[facility],[address] [place] [address] CBC + DIFF Normal [facility] Comment on above: Result Comment: CBC- COMPLETE BLOOD COUNT Performed By: #### 2 40932 ####[facility],[address] [place] [address] EO # 0.33 x10EE3/UL Normal 0.00 - 0.50 [facility] Comment on above: Performed By: #### 2 93245 ####[facility],[address] [place], [place] [address] Eosinophils/100 WBC (Bld) 4.1 % Normal 0.0 - 7.0 [facility] Comment on above: Performed By: #### 2 44386 ####[facility],[address] [place], [place] [address] Erythrocyte distribution width (RBC) [Ratio] 12.9 % Normal 12.0 - 15.6 [facility] Comment on above: Performed By: #### 2 78711 ####[facility],[address] [place], [place] [address] Hematocrit (Bld) [Volume fraction] 41.1 % Normal 34.0 - 46.0 [facility] Comment on above: Performed By: #### 2 14232 ####[facility],[address] [place], [place] [address] Hemoglobin (Bld) [Mass/Vol] 14.6 g/dL Normal 12.0 - 16.0 [facility] Comment on above: Performed By: #### 2 79970 ####[facility],[address] [place] [address] Lymph # 1.82 x10EE3/UL Normal 0.80 - 2.80 [facility] Comment on above: Performed By: #### 2 50913 ####[facility],[address] [place] [address] Lymphocytes/100 WBC (Bld) 22.5 % Normal 20.0 - 45.0 [facility] Comment on above: Performed By: #### 2 16562 ####[facility],[address] [place] [address] MANUAL DIFF N/A Normal [facility] Comment on above: Performed By: #### 2 09137 ####[facility],[address] [place] [address] MCH (RBC) [Entitic mass] 30 pg Normal 27 - 33 [facility] Comment on above: Performed By: #### 2 60351 ####[facility],[address] [place] [address] MCHC 35 X10 3 Normal 32 - 36 [facility] Comment on above: Performed By: #### 2 91366 ####[facility],[address] [place] [address]89 MCV (RBC) [Entitic vol] 84 fL Normal 80 - 99 [facility] Comment on above: Performed By: #### 2 16554 ####[facility],[address] [place] [address] [place] # 0.40 x10EE3/UL Normal 0.20 - 1.00 [facility] Comment on above: Performed By: #### 2 63120 ####[facility],[address] [place] [address] MONOS % 5.0 % Normal 0.0 - 10.0 [facility] Comment on above: Performed By: #### 2 53096 ####[facility],[address] [place] [address] 35583 Morphology Kamlesh (Bld) [Interp] N/A Normal [facility] Comment on above: Performed By: #### 2 79418 ####[facility],[address] [place] [address]235 Neut # 5.51 x10EE3/UL Normal 1.50 - 7.10 [facility] Comment on above: Performed By: #### 2 26624 ####[facility],[address] [place] [address] Neutrophils/100 WBC (Bld) 68.1 % Normal 46.0 - 76.0 [facility] Comment on above: Performed By: #### 2 77982 ####[facility],[address] [place] [address]64 PLATELET 257 x10EE3/UL Normal 150 - 450 [facility] Comment on above: Performed By: #### 2 79937 ####[facility],[address] [place] [address]102 Platelet mean volume (Bld) [Entitic vol] 7.9 fL Normal 6.6 - 10.5 [facility] Comment on above: Result Comment: AUTO MATED DIFFERENTIAL Performed By: #### 2 19530 ####[facility],[address] [place] [address] RBC 4.88 x 10EE6/UL Normal 4.10 - 5.30 [facility] Comment on above: Performed By: #### 2 52706 ####[facility],[address] [place] [address]151 WBC 8.1 x 10EE3/UL Normal 4.5 - 10.8 [facility] Comment on above: Performed By: #### 2 79173 ####[facility],[address] [place] [address]0005 CHEST 2 VIEWSon 06-17-2024 CHEST 2 VIEWS Normal [facility] [facility] CMP with eGFRon 06-17-2024 AGE 29 years Normal [facility] Comment on above: Performed By: #### 2 37828 ####[facility],[address] [place] [address] 45441 Albumin [Mass/Vol] 3.0 g/dL Low 3.4 - 5.0 [facility] Comment on above: Performed By: #### 2 49651 ####[facility],[address] [place] [address] 17511 Albumin/Globulin [Mass ratio] 0.8 {ratio} Low 0.9 - 1.6 [facility] Comment on above: Performed By: #### 2 09314 ####[facility],[address] [place] [address] 29381 ALK PHOS 85 U/L Normal 46 - 116 [facility] Comment on above: Performed By: #### 2 97547 ####[facility],[address] [place] [address] 71418 ALT [Catalytic activity/Vol] 24 U/L Normal 16 - 63 [facility] Comment on above: Performed By: #### 2 23645 ####[facility],[address] [place] [address] 64721 Anion gap [Moles/Vol] 12 mmol/L Normal 10 - 20 [facility] Comment on above: Performed By: #### 2 91122 ####[facility],[address] [place] [address] 23844 AST [Catalytic activity/Vol] 11 U/L Low 13 - 39 [facility] Comment on above: Performed By: #### 2 95268 ####[facility],[address] [place] [address] 42183 B/C RATIO 17 ratio Normal 0 - 30 [facility] Comment on above: Performed By: #### 2 58023 ####[facility],[address] [place] [address] 80205 Bilirubin [Mass/Vol] 0.2 mg/dL Normal 0.2 - 1.0 [facility] Comment on above: Performed By: #### 2 94107 ####[facility],[address] [place], [place] [id number] Calcium [Mass/Vol] 8.1 mg/dL Low 8.5 - 10.1 [facility] Comment on above: Performed By: #### 2 52431 ####[place] [address] Chloride [Moles/Vol] 103 mmol/L Normal 98 - 107 [facility] Comment on above: Performed By: #### 2 47101 ####[place] [address] CMP with eGFR Normal [facility] Comment on above: Result Comment: COMP REHENSIVE METABOLIC PANEL Performed By: #### 2 37471 ####[address] [address] CO2 [Moles/Vol] 24.8 mmol/L Normal 21.0 - 32.0 [facility] Comment on above: Performed By: #### 2 78137 ####[place] [id number] Creatinine [Mass/Vol] 0.78 mg/dL Normal 0.55 - 1.02 [facility] Comment on above: Performed By: #### 2 82204 ####[address] [address] GFR/1.73 sq M.predicted among non-blacks MDRD (S/P/Bld) [Vol rate/Area] mL/min/{1.73_m2} Normal 60 - 999 [facility] Comment on above: Performed By: #### 2 71157 ####[facility],[address] [place] [address] 02175 Result Comment: ACCO RDING TO THE NATIONAL KIDNEY DISEASE EDUCATION PROGRAM(NKDE), A NORMAL eGFRIS A VALUE GREATER THAN OR EQUAL TO 60 ML/MIN/1.73 SQ METERS.CHRONIC KIDNEY DISEASE: <60mL/MIN/1.73 SQ METERSKIDNEY FAILURE: <15mL/MIN/1.73 SQ METERSTHIS TEST SHOULD ONLY BE USED FOR PATIENTS 18 YEARS OF AGE AND OLDER. Globulin (S) [Mass/Vol] 3.8 g/dL Normal 1.5 - 3.8 [facility] Comment on above: Performed By: #### 2 81253 ####[facility],[address] [place] [address] 68003 Glucose [Mass/Vol] 107 mg/dL High 74 - 106 [facility] Comment on above: Performed By: #### 2 03039 ####[facility],[address] [place] [address] 04691 Potassium [Moles/Vol] 3.2 mmol/L Low 3.5 - 5.1 [facility] Comment on above: Performed By: #### 2 68655 ####[facility],[address] [place] [address] 56066 Protein [Mass/Vol] 6.8 g/dL Normal 6.4 - 8.2 [facility] Comment on above: Performed By: #### 2 30373 ####[facility],[address] [place] [address] 63407 Sodium [Moles/Vol] 137 mmol/L Normal 136 - 145 [facility] Comment on above: Performed By: #### 2 52195 ####[facility],[address] [place] [address] 79257 Urea nitrogen [Mass/Vol] 13 mg/dL Normal 7 - 18 [facility] Comment on above: Performed By: #### 2 08061 ####[facility],[address] [place] [address] 57039 C-REACTIVE PROTEINon 024 CRP 2.01 mg/dl High 0.00 - 0.90 [facility] Comment on above: Performed By: #### 2 14895 ####[facility],[address] [place] [address] 33149 CBC + DIFFon 05-16-2024 Baso # 0.02 x10EE3/UL Normal 0.00 - 0.10 [facility] Comment on above: Performed By: #### 2 52072 ####[facility],[address] [place] [address] 09729 Basophils/100 WBC (Bld) 0.3 % Normal 0.0 - 2.0 [facility] Comment on above: Performed By: #### 2 79361 ####[facility],[address] [place] [address] CBC + DIFF Normal [facility] Comment on above: Result Comment: CBC- COMPLETE BLOOD COUNT Performed By: #### 2 05691 ####[facility],[address] [place] [address] 52285 EO # 0.19 x10EE3/UL Normal 0.00 - 0.50 [facility] Comment on above: Performed By: #### 2 20534 ####[facility],[address] [place] [address] 95638 Eosinophils/100 WBC (Bld) 2.9 % Normal 0.0 - 7.0 [facility] Comment on above: Performed By: #### 2 25962 ####[address] [address] Erythrocyte distribution width (RBC) [Ratio] 13.2 % Normal 12.0 - 15.6 [facility] Comment on above: Performed By: #### 2 47457 ####[address] [address] Hematocrit (Bld) [Volume fraction] 43.0 % Normal 34.0 - 46.0 [facility] Comment on above: Performed By: #### 2 88159 ####[facility],[address] [place] [address] Hemoglobin (Bld) [Mass/Vol] 15.0 g/dL Normal 12.0 - 16.0 [facility] Comment on above: Performed By: #### 2 45456 ####[facility],[address] [place] [address] Lymph # 1.04 x10EE3/UL Normal 0.80 - 2.80 [facility] Comment on above: Performed By: #### 2 60245 ####[place] [address] Lymphocytes/100 WBC (Bld) 16.0 % Low 20.0 - 45.0 [facility] Comment on above: Performed By: #### 2 25859 ####[facility],[address] [place] [address] MANUAL DIFF N/A Normal [facility] Comment on above: Performed By: #### 2 46263 ####[facility],[address] [place] [address] MCH (RBC) [Entitic mass] 30 pg Normal 27 - 33 [facility] Comment on above: Performed By: #### 2 06232 ####[place] [address] MCHC 35 X10 3 Normal 32 - 36 [facility] Comment on above: Performed By: #### 2 05488 ####[facility],[address] [place] [address] MCV (RBC) [Entitic vol] 85 fL Normal 80 - 99 [facility] Comment on above: Performed By: #### 2 08960 ####[place] [address] [place] # 0.27 x10EE3/UL Normal 0.20 - 1.00 [facility] Comment on above: Performed By: #### 2 02970 ####[facility],[address] [place] [address] 95474 MONOS % 4.1 % Normal 0.0 - 10.0 [facility] Comment on above: Performed By: #### 2 48308 ####[facility],[address] [place] [address] 23874 Morphology Kamlesh (Bld) [Interp] N/A Normal [facility] Comment on above: Performed By: #### 2 17086 ####[facility],[address] [place] [address] 80978 Neut # 5.00 x10EE3/UL Normal 1.50 - 7.10 [facility] Comment on above: Performed By: #### 2 21499 ####[facility],[address] [place] [address] 60055 Neutrophils/100 WBC (Bld) 76.7 % High 46.0 - 76.0 [facility] Comment on above: Performed By: #### 2 19015 ####[facility],[address] [place] [address] 61320 PLATELET 241 x10EE3/UL Normal 150 - 450 [facility] Comment on above: Performed By: #### 2 57234 ####[facility],[address] [place] [address] 99231 Platelet mean volume (Bld) [Entitic vol] 8.0 fL Normal 6.6 - 10.5 [facility] Comment on above: Result Comment: AUTO MATED DIFFERENTIAL Performed By: #### 2 26160 ####[address] [address] RBC 5.06 x 10EE6/UL Normal 4.10 - 5.30 [facility] Comment on above: Performed By: #### 2 61292 ####[facility],[address] [place], [place] [address] WBC 6.5 x 10EE3/UL Normal 4.5 - 10.8 [facility] Comment on above: Performed By: #### 2 49172 ####[facility],[address] [place] [address] 54188 CHEST 1 VIEWon 05-16-2024 CHEST 1 VIEW Normal [facility] CMP with eGFRon 05-16-2024 AGE 29 years Normal [facility] Comment on above: Performed By: #### 2 98947 ####[facility],[address] [place] [address] 82239 Albumin [Mass/Vol] 3.2 g/dL Low 3.4 - 5.0 [facility] Comment on above: Performed By: #### 2 32341 ####[facility],[address] [place] [address] 90925 Albumin/Globulin [Mass ratio] 0.9 {ratio} Normal 0.9 - 1.6 [facility] Comment on above: Performed By: #### 2 08564 ####[facility],[address] [place] [address] 45025 ALK PHOS 113 U/L Normal 46 - 116 [facility] Comment on above: Performed By: #### 2 69952 ####[facility],[address] [place] [address] 14380 ALT [Catalytic activity/Vol] 83 U/L High 16 - 63 [facility] Comment on above: Performed By: #### 2 60279 ####[facility],[address] [place] [address] 78491 Anion gap [Moles/Vol] 12 mmol/L Normal 10 - 20 [facility] Comment on above: Performed By: #### 2 04756 ####[facility],[address] [place] [address] 97992 AST [Catalytic activity/Vol] 37 U/L Normal 13 - 39 [facility] Comment on above: Performed By: #### 2 46077 ####[facility],[address] [place] [address] 77827 B/C RATIO 8 ratio Normal 0 - 30 [facility] Comment on above: Performed By: #### 2 95053 ####[facility],[address] [place] [address] 01309 Bilirubin [Mass/Vol] 0.4 mg/dL Normal 0.2 - 1.0 [facility] Comment on above: Performed By: #### 2 17067 ####[facility],[address] [place] [address] 69961 Calcium [Mass/Vol] 8.7 mg/dL Normal 8.5 - 10.1 [facility] Comment on above: Performed By: #### 2 47508 ####[facility],[address] [place] [address] 83714 Chloride [Moles/Vol] 102 mmol/L Normal 98 - 107 [facility] Comment on above: Performed By: #### 2 56129 ####[facility],[address] [place] [address] 59022 CMP with eGFR Normal [facility] Comment on above: Result Comment: COMP REHENSIVE METABOLIC PANEL Performed By: #### 2 85726 ####[facility],[address] [place] [address] 67588 CO2 [Moles/Vol] 25.9 mmol/L Normal 21.0 - 32.0 [facility] Comment on above: Performed By: #### 2 52460 ####[facility],[address] [place] [address] 48901 Creatinine [Mass/Vol] 0.76 mg/dL Normal 0.55 - 1.02 [facility] Comment on above: Performed By: #### 2 46087 ####[facility],[address] [place] [address] 90325 GFR/1.73 sq M.predicted among non-blacks MDRD (S/P/Bld) [Vol rate/Area] mL/min/{1.73_m2} Normal 60 - 999 [facility] Comment on above: Performed By: #### 2 59404 ####[facility],[address] [place] [address] 52650 Result Comment: ACCO RDING TO THE NATIONAL KIDNEY DISEASE EDUCATION PROGRAM(NKDE), A NORMAL eGFRIS A VALUE GREATER THAN OR EQUAL TO 60 ML/MIN/1.73 SQ METERS.CHRONIC KIDNEY DISEASE: <60mL/MIN/1.73 SQ METERSKIDNEY FAILURE: <15mL/MIN/1.73 SQ METERSTHIS TEST SHOULD ONLY BE USED FOR PATIENTS 18 YEARS OF AGE AND OLDER. Globulin (S) [Mass/Vol] 3.7 g/dL Normal 1.5 - 3.8 [facility] Comment on above: Performed By: #### 2 59650 ####[address] [address] Glucose [Mass/Vol] 130 mg/dL High 74 - 106 [facility] Comment on above: Performed By: #### 2 56135 ####[address] [address] Potassium [Moles/Vol] 3.1 mmol/L Low 3.5 - 5.1 [facility] Comment on above: Performed By: #### 2 25117 ####[facility],[address] [place] [address] 33912 Protein [Mass/Vol] 6.9 g/dL Normal 6.4 - 8.2 [facility] Comment on above: Performed By: #### 2 23069 ####[address] [address] Sodium [Moles/Vol] 137 mmol/L Normal 136 - 145 [facility] Comment on above: Performed By: #### 2 27965 ####[facility],[address] [place] [address] 75189 Urea nitrogen [Mass/Vol] 6 mg/dL Low 7 - 18 [facility] Comment on above: Performed By: #### 2 73851 ####[facility],[address] [place] [address] 51169 CORONAVIRUS (SARS) ANTIGEN T ESTon 05-16-2024 EXTERNAL QC DONE? YES Normal [facility] Comment on above: Performed By: #### 2 53636 ####[facility],[address] [place] [address] 78774 INTERNAL CONTROL PASS Normal [facility] Comment on above: Performed By: #### 2 79996 ####[facility],[address] [place] [address] 38952 SARS ANTIGEN Negative Normal NORMAL: NEGATIVE [facility] Comment on above: Performed By: #### 2 28410 ####[facility],[address] [place] [address] 01096 SEND TO ? YES Normal [facility] Comment on above: Result Comment: SARS -CoV-2THIS TEST IS BEING USED UNDER THE FDA EUA PROCEDURE. THIS ASSAY HAS BEENVALIDATED AT [facility] FOR USE WITH NASAL AND NASOPHARYNGEAL SWABSPECIMENS.INTERPRETIVE DATATEST RESULTS SHOULD ALWAYS BE CONSIDERED IN THE CONTEXT OF CLINICALOBSERVATIONS AND EPIDEMIOLOGICAL DATA IN MAKING FINAL DIAGNOSIS AND PATIENTMANAGEMENT DECISIONS. PATIENT MANAGEMENT SHOULD FOLLOW CURRENT CDC GUIDELINES.THE NELL SARS ANTIGEN MARJAN DOES NOT DIFFERENTIATE BETWEEN SARS-CoV & SARS-CoV-2.A POSITIVE TEST RESULT INDICATES THE PRESENCE OF SARS-CoV-2 NUCLEOCAPSID PROTEINANTIGEN, AND THE PATIENT IS INFECTED WITH THE VIRUS AND PRESUMED TO BECONTAGIOUS.A NEGATIVE TEST RESULT FOR THIS TEST MEANS THAT SARS-CoV-2 NUCLEOCAPSID PROTEINANTIGEN WAS NOT PRESENT IN THE SPECIMEN ABOVE THE LIMIT OF DETECTION. HOWEVER, ANEGATIVE RESULT DOES NOT RULE OUT COVID-19 AND SHOULD NOT BE USED THE SOLEBASIS FOR TREATMENT OR PATIENT MANAGEMENT DECISIONS. A NEGATIVE RESULT DOES NOTEXCLUDE THE POSSIBILITY OF COVID-19. NEGATIVE RESULTS, FROM PATIENTS WITHSYMPTOM ONSET BEYOND FIVE DAYS, SHOULD BE TREATED PRESUMPTIVE ANDCONFIRMATION WITH A MOLECULAR ASSAY, IF NECESSARY, FOR PATIENT MANAGEMENT, MAYBE PERFORMED.WHEN DIAGNOSTIC TESTING IS NEGATIVE, THE POSSIBLILTY OF A FALSE NEGATIVE RESULTSHOULD BE CONSIDERED IN THE CONTEXT OF A PATIENT'S RECENT EXPOSURES AND THEPRESENCE OF CLINICAL SIGNS AND SYMPTOMS CONSISTENT WITH COVID-19. THEPOSSIBILITY OF A FALSE NEGATIVE RESULT SHOULD ESPECIALLY BE CONSIDERED IF THEPATIENT'S RECENT EXPOSURES OR CLINICAL PRESENTATION INDICATE THAT COVID-19 ISLIKELY, AND DIAGNOSTIC TESTS FOR OTHER CAUSES OF ILLNESS (e.g., OTHERRESPIRATORY ILLNESS) ARE NEGATIVE. IF COVID-19 IS STILL SUSPECTED BASED ONEXPOSURE HISTORY TOGETHER WITH OTHER CLINICAL FINDINGS, RE-TESTING SHOULD BECONSIDERED BY HEALTHCARE PROVIDERS IN CONSULTATION WITH [facility]. Performed By: #### 2 47750 ####[place] [address] CT ABDOMEN/PELVIS Won 2023 CT ABDOMEN/PELVIS W Normal [facility] INFLUENZA VIRUS RAPID A/Bon 05-16-2024 INFLUENZA VIRUS RAPID A/B Normal [facility] Comment on above: Performed By: #### 2 80413 ####[place] [address] LIPASEon 05-16-2024 Lipase [Catalytic activity/Vol] 33.0 U/L Normal 15.0 - 78.0 [facility] Comment on above: Result Comment: *PLE ASE NOTE THAT RANGES FOR LIPASE HAVE CHANGED OF 09/30/23 DUE TO AN ASSAYUPDATE BY THE [employer] SUPPORT SPECIALIST.THE NEW ASSAY RANGE IS 6-250 U/L, WITH A REFERENCERANGE OF 16-77 U/L. Performed By: #### 2 28001 ####[place] [address] SERUM QUALon 05-16 EXTERNAL QC DONE? YES Normal [facility] Comment on above: Performed By: #### 2 74330 ####[place] [address] INTERNAL QC PASS Normal [facility] Comment on above: Performed By: #### 2 60663 ####[place] [address] SER Negative Normal NEGATIVE [facility] Comment on above: Performed By: #### 2 63716 ####[facility],[address] [place] [address] 28342 URINALYSISon 05-16-2024 Amorphous NONE Normal [facility] Comment on above: Performed By: #### 2 87864 ####[facility],[address] [place] [address] 19738 Bacteria TRACE Normal [facility] Comment on above: Performed By: #### 2 56088 ####[facility],[address] [place] [address] 27593 Bilirubin Ql (U) Negative Normal NORMAL: NEGATIVE [facility] Comment on above: Performed By: #### 2 63200 ####[facility],[address] [place], [place] [id number] Casts NONE Normal [facility] Comment on above: Performed By: #### 2 06372 ####[facility],[address] [place], [place] [address] Clarity (U) sl.cloudy Normal NORMAL: CLEAR [facility] Comment on above: Performed By: #### 2 70357 ####[facility],[address] [place] [address] 58598 Color (U) yellow Normal NORMAL: YELLOW [facility] Comment on above: Performed By: #### 2 29341 ####[facility],[address] [place] [address] 10610 Crystals LM Nom (Urine sed) NONE Normal [facility] Comment on above: Performed By: #### 2 66164 ####[facility],[address] [place] [address] 08820 Epi Cells MODERATE Normal [facility] Comment on above: Performed By: #### 2 57460 ####[facility],[address] [place] [address] 04018 Glucose Ql (U) NORM Normal NORMAL: NORMAL [facility] Comment on above: Performed By: #### 2 53245 ####[facility],[address] [place] [address] 58977 Hemoglobin Ql (U) 25 Abnormal NORMAL: NEGATIVE [facility] Comment on above: Performed By: #### 2 21813 ####[facility],[address] [place] [address] 33825 Ketone 50 Abnormal NORMAL: NEGATIVE [facility] Comment on above: Performed By: #### 2 70153 ####[facility],[address] [place] [address] 67657 Leukocytes 25 Abnormal NORMAL: NEGATIVE [facility] Comment on above: Performed By: #### 2 25666 ####[facility],[address] [place] [address] 83830 Mucous NONE Normal [facility] Comment on above: Performed By: #### 2 05965 ####[facility],[address] [place] [address] 71515 Nitrite Ql (U) Negative Normal NORMAL: NEGATIVE [facility] Comment on above: Performed By: #### 2 51892 ####[facility],[address] [place] [address] 59701 pH (U) 8 [pH] Normal NORMAL: 5.0-8.0 [facility] Comment on above: Performed By: #### 2 50080 ####[facility],[address] [place] [address] 33900 Protein Ql (U) 15 Abnormal NORMAL: NEGATIVE [facility] Comment on above: Performed By: #### 2 67713 ####[facility],[address] [place] [address] 89272 Rbc 0-5 Normal 0-3/hpf [facility] Comment on above: Performed By: #### 2 97569 ####[facility],[address] [place] [address] 09524 Sp [place] 1.015 Normal NORMAL: 1.010-1.030 [facility] Comment on above: Performed By: #### 2 03152 ####[facility],[address] [place] [address] Specimen Type Clean catch Normal [facility] Comment on above: Performed By: #### 2 52510 ####[facility],[address] [place] [address] Urinalysis dipstick W Reflex Microscopic panel (U) SEE BELOW Normal [facility] Comment on above: Result Comment: MICR OSCOPIC Performed By: #### 2 96313 ####[facility],[address] [place] [address] Urobilinog NORM Normal NORMAL: NORMAL [facility] Comment on above: Performed By: #### 2 86744 ####[facility],[address] [place] [address] Wbc 1-5 Normal 0-5/hpf [facility] Comment on above: Performed By: #### 2 23729 ####[facility],[address] [place] [address] Yeast NONE Normal [facility] Comment on above: Performed By: #### 2 41410 ####[facility],[address] [place], [place] [id number] LYME EARLY (SIGNS/SYMP <=30 DAYS) [CCL]on 04-16-2024 REFLEX LYMEWB? NO Normal [facility] Comment on above: Performed By: #### 2 60285 ####[facility],[address] [place] [address] Lyme IgG IgM Ab Negative Normal Negative [facility] Comment on above: Result Comment: Rece nt infection with B. burgdorferi sensu lato cannot be excluded ifthe specimen collected within four weeks after the onset of signs andsymptoms or within six weeks after a known tick exposure. Clinical andepidemiological correlation is required.[facility] [place], [place] [address]OinpblJohnson Quinteros III, M.D.[id number] Performed By: #### 2 21937 ####[facility],[address] [place] [address] 52758 B. burgdorferi IgG and IgM p fredy (S)on 04-13-2024 B. burgdorferi IgG+IgM Qn (S) Negative Normal Negative [facility] Comment on above: Order Comment: Speci men Type: BLOOD SPECIMEN Ordering Facility: [facility] Address: [address] [place], [place] [id number] Result Comment: Rece nt infection with B. burgdorferi sensu lato cannot be excluded if the specimen collected within four weeks after the onset of signs and symptoms or within six weeks after a known tick exposure. Clinical and epidemiological correlation is required. Performed By: #### 3 4942-3 #### [facility] CLIA [id number] ALLEN [place] [address] [place] CBC + DIFFon 04-13-2024 Baso # 0.03 x10EE3/UL Normal 0.00 - 0.10 [facility] Comment on above: Performed By: #### 2 64919 ####[facility],[address] [place] [address] 98562 Basophils/100 WBC (Bld) 0.4 % Normal 0.0 - 2.0 J [facility] Comment on above: Performed By: #### 2 16288 ####[facility],[address] [place] [address] 94599 CBC + DIFF Normal [facility] Comment on above: Result Comment: CBC- COMPLETE BLOOD COUNT Performed By: #### 2 73501 ####[facility],[address] [place] [address] 29116 EO # 0.29 x10EE3/UL Normal 0.00 - 0.50 [facility] Comment on above: Performed By: #### 2 57475 ####[facility],[address] [place] [address] 83612 Eosinophils/100 WBC (Bld) 4.1 % Normal 0.0 - 7.0 [facility] Comment on above: Performed By: #### 2 26029 ####[facility],[address] [place] [address] Erythrocyte distribution width (RBC) [Ratio] 13.3 % Normal 12.0 - 15.6 [facility] Comment on above: Performed By: #### 2 28535 ####[facility],[address] [place] [address] Hematocrit (Bld) [Volume fraction] 40.3 % Normal 34.0 - 46.0 [facility] Comment on above: Performed By: #### 2 22992 ####[facility],[address] [place] [address] Hemoglobin (Bld) [Mass/Vol] 13.6 g/dL Normal 12.0 - 16.0 [facility] Comment on above: Performed By: #### 2 08529 ####[facility],[address] [place] [address] Lymph # 1.64 x10EE3/UL Normal 0.80 - 2.80 [facility] Comment on above: Performed By: #### 2 38864 ####[facility],[address] [place] [address] Lymphocytes/100 WBC (Bld) 23.3 % Normal 20.0 - 45.0 [facility] Comment on above: Performed By: #### 2 52296 ####[facility],[address] [place], [place] [id number] MANUAL DIFF N/A Normal [facility] Comment on above: Performed By: #### 2 67196 ####[facility],[address] [place], [place] [id number] MCH (RBC) [Entitic mass] 29 pg Normal 27 - 33 [facility] Comment on above: Performed By: #### 2 44184 ####[facility],[address] [place] [address] MCHC 34 X10 3 Normal 32 - 36 [facility] Comment on above: Performed By: #### 2 12663 ####[facility],[address] [place] [address] MCV (RBC) [Entitic vol] 86 fL Normal 80 - 99 J [facility] Comment on above: Performed By: #### 2 19990 ####[facility],[address] [place] [address] [place] # 0.48 x10EE3/UL Normal 0.20 - 1.00 [facility] Comment on above: Performed By: #### 2 48547 ####[facility],[address] [place] [address] MONOS % 6.8 % Normal 0.0 - 10.0 [facility] Comment on above: Performed By: #### 2 09762 ####[facility],[address] [place] [address] Morphology Kamlesh (Bld) [Interp] N/A Normal [facility] Comment on above: Performed By: #### 2 05479 ####[facility],[address] [place] [address] Neut # 4.60 x10EE3/UL Normal 1.50 - 7.10 [facility] Comment on above: Performed By: #### 2 33501 ####[facility],[address] [place] [address] Neutrophils/100 WBC (Bld) 65.4 % Normal 46.0 - 76.0 [facility] Comment on above: Performed By: #### 2 21997 ####[place] [address] PLATELET 261 x10EE3/UL Normal 150 - 450 [facility] Comment on above: Performed By: #### 2 40840 ####[facility],[address] [place] [address] Platelet mean volume (Bld) [Entitic vol] 8.9 fL Normal 6.6 - 10.5 [facility] Comment on above: Result Comment: AUTO MATED DIFFERENTIAL Performed By: #### 2 27274 ####[facility],[address] [place] [address] 55518 RBC 4.70 x 10EE6/UL Normal 4.10 - 5.30 [facility] Comment on above: Performed By: #### 2 96010 ####[facility],[address] [place] [address] 93403 WBC 7.0 x 10EE3/UL Normal 4.5 - 10.8 [facility] Comment on above: Performed By: #### 2 48557 ####[facility],[address] [place] [address] 36763 CMP with eGFRon 04-13-2024 AGE 29 years Normal [facility] Comment on above: Performed By: #### 2 66048 ####[facility],[address] [place] [address] 33487 Albumin [Mass/Vol] 3.1 g/dL Low 3.4 - 5.0 [facility] Comment on above: Performed By: #### 2 26160 ####[facility],[address] [place] [address] 36680 Albumin/Globulin [Mass ratio] 0.9 {ratio} Normal 0.9 - 1.6 [facility] Comment on above: Performed By: #### 2 27799 ####[facility],[address] [place] [address] 68102 ALK PHOS 96 U/L Normal 46 - 116 [facility] Comment on above: Performed By: #### 2 42243 ####[facility],[address] [place] [address] 26140 ALT [Catalytic activity/Vol] 57 U/L Normal 16 - 63 [facility] Comment on above: Performed By: #### 2 27800 ####[facility],[address] [place] [address] 03117 Anion gap [Moles/Vol] 11 mmol/L Normal 10 - 20 [facility] Comment on above: Performed By: #### 2 80245 ####[facility],[address] [place] [address] 43730 AST [Catalytic activity/Vol] 19 U/L Normal 13 - 39 [facility] Comment on above: Performed By: #### 2 92481 ####[facility],[address] [place] [address] 06120 B/C RATIO 19 ratio Normal 0 - 30 [facility] Comment on above: Performed By: #### 2 44190 ####[facility],[address] [place] [address] 12369 Bilirubin [Mass/Vol] 0.2 mg/dL Normal 0.2 - 1.0 [facility] Comment on above: Performed By: #### 2 72547 ####[facility],[address] [place] [address] 14878 Calcium [Mass/Vol] 8.5 mg/dL Normal 8.5 - 10.1 [facility] Comment on above: Performed By: #### 2 12103 ####[facility],[address] [place] [address] 12904 Chloride [Moles/Vol] 103 mmol/L Normal 98 - 107 [facility] Comment on above: Performed By: #### 2 87336 ####[facility],[address] [place] [address] 91640 CMP with eGFR Normal [facility] Comment on above: Result Comment: COMP REHENSIVE METABOLIC PANEL Performed By: #### 2 30115 ####[facility],[address] [place] [address] 09407 CO2 [Moles/Vol] 26.9 mmol/L Normal 21.0 - 32.0 [facility] Comment on above: Performed By: #### 2 04732 ####[facility],[address] [place] [address] 39603 Creatinine [Mass/Vol] 0.68 mg/dL Normal 0.55 - 1.02 [facility] Comment on above: Performed By: #### 2 73418 ####[facility],[address] [place] [address] 98539 GFR/1.73 sq M.predicted among non-blacks MDRD (S/P/Bld) [Vol rate/Area] mL/min/{1.73_m2} Normal 60 - 999 [facility] Comment on above: Performed By: #### 2 70633 ####[facility],[address] [place], [place] [address] Result Comment: ACCO RDING TO THE NATIONAL KIDNEY DISEASE EDUCATION PROGRAM(NKDE), A NORMAL eGFRIS A VALUE GREATER THAN OR EQUAL TO 60 ML/MIN/1.73 SQ METERS.CHRONIC KIDNEY DISEASE: <60mL/MIN/1.73 SQ METERSKIDNEY FAILURE: <15mL/MIN/1.73 SQ METERSTHIS TEST SHOULD ONLY BE USED FOR PATIENTS 18 YEARS OF AGE AND OLDER. Globulin (S) [Mass/Vol] 3.5 g/dL Normal 1.5 - 3.8 [facility] Comment on above: Performed By: #### 2 78945 ####[facility],[address] [place] [address] 60547 Glucose [Mass/Vol] 97 mg/dL Normal 74 - 106 [facility] Comment on above: Performed By: #### 2 98660 ####[facility],[address] [place] [address] 61283 Potassium [Moles/Vol] 3.1 mmol/L Low 3.5 - 5.1 [facility] Comment on above: Performed By: #### 2 12876 ####[facility],[address] [place] [address] 28746 Protein [Mass/Vol] 6.6 g/dL Normal 6.4 - 8.2 [facility] Comment on above: Performed By: #### 2 82368 ####[facility],[address] [place] [address] 19913 Sodium [Moles/Vol] 138 mmol/L Normal 136 - 145 [facility] Comment on above: Performed By: #### 2 62892 ####[facility],[address] [place] [address] 85370 Urea nitrogen [Mass/Vol] 13 mg/dL Normal 7 - 18 [facility] Comment on above: Performed By: #### 2 81711 ####[facility],[address] [place] [address] 84380 FERRITINon 04-13-2024 Ferritin [Mass/Vol] 52 ng/mL Normal 8 - 388 [facility] Comment on above: Performed By: #### 2 36149 ####[facility],[address] [place] [address] 67216 T4-FREE (FREE THYROXINE)on 0 04-13-2024 Free T4 [Mass/Vol] 0.89 ng/dL Normal 0.76 - 1.46 [facility] Comment on above: Result Comment: P otential of falsely elevated results when biotin concentrations are > 10ng/mL. Performed By: #### 2 30796 ####[facility],[address] [place] [address] 03742 TSHon 04-13-2024 TSH Qn 0.43 m[IU]/L Normal 0.35 - 3.74 [facility] Comment on above: Performed By: #### 2 76568 ####[facility],[address] [place] [address] 54008 VITAMIN D, 25 HYDROXYon 04-02 VitD 16.20 ng/mL Low 30.00 - 100 [facility] Comment on above: Result Comment: 25-O HD3 indicates both endogenous production and supplementation. 25-OHD2 is anindicator of exogenous sources, such as diet or supplementation. Therapy isbased on measurement of Total 25-OHD, with levels <20 ng/mL indicative ofVitamin D deficiency, while levels between 20 ng/mL and 30 ng/mL suggestinsufficiency. Optimal levels are >=30ng/mL.Vitamin D, 25-OH D3 Not EstablishedVitamin D, 25-OH D2 Not Established Performed By: #### 2 80610 ####[facility],[address] [place] [address] 01703 BLOOD TB SCREEN, INCUBATEDon 08-31-2023 M. tuberculosis tuberculin stim IFN-g Ql (Bld) Negative Normal [facility] Comment on above: Order Comment: Tonya tan Type: BLOOD SPECIMEN Ordering Facility: [facility] Address: [address] [place] [address] Performed By: #### I NTPGP #### [facility] CLIA [id number] [address] [place] [address] [place] MITOGEN MINUS NIL >9.97 Normal >=0.50 [facility] Comment on above: Order Comment: Tonya tan Type: BLOOD SPECIMEN Ordering Facility: [facility] Address: [address] [place] [address] Performed By: #### I NTPGP #### [facility] CLIA [id number] [address] [place] [address] [place] TB GAMMA INTERPRETATION Infection with M . tuberculosis complex is unlikely. If latent tuberculosis infection is highly suspected, a negative result does not rule out the infection. Specimens from immunocompromised patients and those <5 years of age may show false negative results. In case of a contact investigation, please repeat 8-12 weeks after a known exposure. Normal [facility] Comment on above: Order Comment: Tonya tan Type: BLOOD SPECIMEN Ordering Facility: [facility] Address: [address] [place] [address] Performed By: #### I NTPGP #### [facility] CLIA [id number] [address] [place] [address] [place] [address] [facility] TB NIL 0.03 IU/mL Normal <=8.00 [facility] Comment on above: Order Comment: Tonya tan Type: BLOOD SPECIMEN Ordering Facility: [facility] Address: [address] [place] [address] Performed By: #### I NTPGP #### [facility] CLIA [id number] [address] [place] [address] [place] TB1 AG MINUS NIL 0.00 IU/mL Normal <0.35 [facility] Comment on above: Order Comment: Speci men Type: BLOOD SPECIMEN Ordering Facility: [facility] Address: [address] [place] [address] Performed By: #### I NTPGP #### [facility] CLIA [id number] [address] [place] [address] [place] TB2 AG MINUS NIL 0.00 IU/mL Normal <0.35 [facility] Comment on above: Order Comment: Speci men Type: BLOOD SPECIMEN Ordering Facility: [facility] Address: [address] [place] [address] Performed By: #### I NTPGP #### [facility] CLIA [id number] [address] [place] [address] [place] HBV surface Ab Ql (S)on 08-04 HBV surface Ab Qn (S) <8.00 Normal [facility] Comment on above: Order Comment: Speci men Type: BLOOD SPECIMEN Ordering Facility: [facility] Address: [address] [place] [address] Result Comment: <8 m IU/mL: No serological evidence of immunity to Hepatitis B Virus. >/= 8 to <12 mIU/mL: No serological evidence of immunity to Hepatitis B Virus. >/= 12 mIU/mL: Consistent with serological evidence of immunity to Hepatitis B Virus. Performed By: #### M [facility], [address]-5 #### [facility] CLIA [id number] [address] [place] [address] [place] HBV surface Ab Ser Qlon 08-04 HBV surface Ab Ql (S) Negative Normal [facility] Comment on above: Order Comment: Specchandana dominick Type: BLOOD SPECIMEN Ordering Facility: [facility] Address: [address] [place] [address] Result Comment: No s erological evidence of immunity to Hepatitis B Virus. Performed By: #### M UMPSG, 88818-3 #### [facility] CLIA [id number] [address] [place] [address] [place] MUMPS IGG ABon 08-31-2023 MuV IgG Ql (S) Positive Normal Positive [facility] Comment on above: Order Comment: Specchandana tan Type: BLOOD SPECIMEN Ordering Facility: [facility] Address: [address] [place] [address] Result Comment: The result suggests recent or past exposure to Mumps virus or Mumps vaccination. The current test does not detect neutralizing antibodies. Positive result may also be seen due to presence of passively-transferred antibodies. Please correlate with patient's history. Performed By: #### M UMPSG, 39682-4 #### [facility] CLIA [id number] [address] [place] [address] [place] RUBELLA IGG ABon 08-31-2023 RUBELLA IGG AB, QUAL Positive Normal Positive [facility] Comment on above: Order Comment: Tonya dominick Type: BLOOD SPECIMEN Ordering Facility: [facility] Address: [address] [place] [address] Result Comment: The result suggests recent or past exposure to Rubella virus or history of Rubella vaccination. Positive result may also be seen due to presence of passively-transferred antibodies. Please correlate with patient's history. Performed By: #### R UBIGG #### [facility] CLIA [id number] [address] [place] [address] [place] RUBEOLA (MEASLES)IGGon 08-31 MEASLES IGG AB, QUAL Positive Normal Positive [facility] Comment on above: Order Comment: Tonya tan Type: BLOOD SPECIMEN Ordering Facility: [facility] Address: [address], [place] [address] Result Comment: The result suggests recent or past exposure to Measles virus or Measles vaccination. The current test does not detect neutralizing antibodies. Positive result may also be seen due to presence of passively-transferred antibodies. Please correlate with patient's history. Performed By: #### M EASLG #### [facility] CLIA [id number] [address] [place] CNOVon 08-09-2023 CNOV Office Visit (OBGYWM ) -------- JESSICA ACUNA ([id number]) 1995 F Date Time Provider Department 08/09/23 11:00 AM TIFFANIE SCHMIDT OBVIANEY During your visit today, we recorded the following information about you: Blood pressure Weight Height 128/98 143.3 kg 1.676 m Tiffanie Schmidt, GLASS TUBE BENDER.WOOD INSPECTOR 08/09/2023 11:46 AM Signed Supervisor Shipping Room offered: Patient declines. Accompanied by mother. Jessica is a 28 year old who presents for an annual gynecologic exam with complaints, recurrent ovarian cyst pain . 06/15/2023 CT pre-op hip surgery with incidental finding of prominent right ovarian follicles. She was told to follow-up with gynecology. Vaginal discharge - noticed after wiping. Menses: no menses IUD. Thick clear mucous, sometimes dark brown like old blood. Denies odor, irritation or itching. Contraception: MIrena IUD 11/11/2021 HPV vaccine: No Last Pap: normal unsure of year HPV: N/A History of abnormal pap: No Last mammogram: never Sexually active: Yes History of STDS: None Patient concerns for STD exposure: No. Time with current partner: 3 years History of ovarian cyst: Yes, Pain with intercourse: No Postcoital bleeding: No OB History T0 L0 SAB0 IAB0 Ectopic0 Multiple0 Live Births0 Staff Nurse Midwife History LMP: 09/26/2021, IUD Age at Menarche: Age at First : Age at Menopause: Staff Nurse Midwife History Comments: Sexual Activity: Yes; Male Contraception: I.U.D. PAST MEDICAL HISTORY Diagnosis Date Acid reflux Asthma Environmental allergies receives weekly allergy shots Essential hypertension PAST SURGICAL HISTORY Procedure Laterality Date L'SCOPE CHOLECYSTECTOMY 2020 PAST SURGICAL HISTORY OF Right 2019 release plantar fasciitis PAST SURGICAL HISTORY OF Left 2021 release plantar fasciitis TONSILLECTOMY HX 10/03/2006 FAMILY HISTORY Problem Relation Age of Onset Arthritis Mother Diabetes Mother Hypertension Mother Colon Cancer Father 60 Hypertension Father Hypertension Brother Hypertension Brother Colon Polyps Maternal Grandmother other (atrial fib) Maternal Grandmother Heart Failure Maternal Grandfather SOCIAL HISTORY Social History Tobacco Use Smoking status: Never Smokeless tobacco: Never Vaping Use Vaping Use: Never used Substance Use Topics Alcohol use: Not Currently Drug use: Never REVIEW OF SYSTEMS Abdomen: No abdominal pain, nausea, vomiting, diarrhea, or constipation. No bloating, early satiety, indigestion, or increased flatulence. Bladder: No dysuria, gross hematuria, urinary frequency, urinary urgency, or incontinence. Breast: No breast lumps, nipple d/c, overlying skin changes, redness or skin retraction. Allergies and current medication updated:Yes EXAM: BP 128/98 Ht 5' 6 (1.68m) Wt 316 lb (143.3kg) LMP 09/26/2021 BMI 51.03 kg/(m2). History of hypertension but does not take prescribed medication. GENERAL: pleasant, female in no apparent distress HEENT: Normocephalic, atraumatic, mucus membranes moist, and no lesions NECK: Supple, full range of motion, no adenopathy, and thyroid normal DERMATOLOGY: Normal, without lesions, non-icteric, and hirsutism to chin BREAST: soft, non-tender, symmetric, no dominant mass, normal nipple-areolar complex, no lymphadenopathy, and no nipple discharge CHEST: Normal inspiratory effort ABDOMEN: soft and non-tender PELVIC: external genitalia normal, normal Bartholin's glands, urethra, Lecompte's glands, no vulvar lesions, no cervical lesions, good vaginal support, physiologic discharge present, normal appearing perineal body and perianal region, IUD strings visible BIMANUAL: uterus normal size, shape and consistency, no adnexal masses, and non-tender RECTOVAGINAL: deferred. NEURO: alert and oriented x3,exam grossly non-focal EXTREMITIES: normal ASSESSMENT/PLAN: 1) Health maintenance: Pap done with reflex HPV. Nutrition, exercise and routine health maintenance exams reviewed. History of ovarian cysts - CT 06/2023 prominent follicles. Reviewed ovarian cysts and that Mirena IUD can make cysts more prominent. 2. Class 3 severe obesity with serious comorbidity and body mass index (BMI) of 50.0 to 59.9 in adult, unspecified obesity type (HCC) - ICD9: 278.01, V85.43, ICD10: E66.01, Z68.43 Weight increasing Lengthy discussion regarding weight with pt permission. She is interested in metabolic surgery - consult placed. - [facility] 3) Contraception: IUD. Contraceptive options reviewed and information provided. 4) STD screening: Declined STD check. 5) Follow up one year or sooner as needed MARCELLA Beach Amy, APRN.CNP 08/09/2023 11:11 AM Signed See PCP - Elevated BP Cymbalta - bupropion will help you control cravings but your BP has to be well-controlled. Fluoxetine and sertraline can be weight variable in some people. (more content not included)... Normal [facility] PAP TESTon 08-09-2023 ADEQUACY Satisfactory for interpretation Normal [facility] Comment on above: Order Comment: Speci men Type: FLUID SPECIMEN Ordering Facility: [facility] Address: [address] [place] [address] Performed By: #### L [id number] #### [facility] CLIA [id number] [address] [place], [place] [address] [place] [address] [place] CASE REPORT Normal [facility] Comment on above: Order Comment: Speci men Type: FLUID SPECIMEN Ordering Facility: [facility] Address: [address] [place] [address] Result Comment: Yuriye cologic Cytology Report Case: [id number] Authorizing Provider: Tiffanie Schmidt APRN.CNP Collected: 08/09/2023 11:53 AM Ordering Location: OB/Gynecology Received: 08/09/2023 12:53 PM First Screen: Halima Flores, CT, ASCP Specimen: Pap Test, ThinPrep, Cervix Performed By: #### L [id number] #### [facility] CLIA [id number] [address] [place] [id number] [place] CLINICAL HISTORY, CYTOLOGY, ASSEMBLY MECHANIC Routine Exam Normal [facility] Comment on above: Order Comment: Speci men Type: FLUID SPECIMEN Ordering Facility: [facility] Address: [address] [place] [address] Performed By: #### L [id number] #### [facility] CLIA [id number] [address] [place] [id number] [place] FINAL PERFORMING LAB Normal [facility] Comment on above: Order Comment: Speci men Type: FLUID SPECIMEN Ordering Facility: [facility] Address: [address] [place] [address] Result Comment: Tech nical component, grinder lap screening performed at [facility], [address] [place], [place] [id number] CLIA# [id number] Diagnostic interpretation performed at [facility], [address] [facility] [place] [address] CLIA# [id number] Stereotyper Helper: Johnson Quinteros M.D. Performed By: #### L [id number] #### [facility] CLIA [id number] [address] [place] [id number] [place] HPV REFLEX HPV if Atypical Normal [facility] Comment on above: Order Comment: Speci men Type: FLUID SPECIMEN Ordering Facility: [facility] Address: [address] [place] [address] Performed By: #### L [id number] #### [facility] CLIA [id number] [address] [place] [id number] [place] INTERPRETATION, CYTOLOGY, ASSEMBLY MECHANIC Normal [facility] Comment on above: Order Comment: Speci men Type: FLUID SPECIMEN Ordering Facility: [facility] Address: [address] [place] [address] Result Comment: Nega tive for intraepithelial lesion or malignancy. Performed By: #### L [id number] #### [facility] CLIA [id number] [address] [place] [address] [place] LMP 09/26/2021 Normal [facility] Comment on above: Order Comment: Speci men Type: FLUID SPECIMEN Ordering Facility: [facility] Address: [address] [place] [address] Performed By: #### L [id number] #### [facility] CLIA [id number] [facility] [place] [address] [place] PAP DISCLAIMER COMMENT The Pap Smear is a screening test for cervical cancer. False negative results occur with all screening tests, emphasizing the need for rescreening at recommended intervals, and clinical correlation. Normal [facility] Comment on above: Order Comment: Speci men Type: FLUID SPECIMEN Ordering Facility: [facility] Address: [address] [place] [address] Performed By: #### L [id number] #### [facility] CLIA [id number] [address] [place] [address] [place] PAP ORTHOPEDIC CAST SPECIALIST COMMENT This specimen has be en analyzed by the ThinPrep Imaging System, an automated imaging and review system, which assists the laboratory in evaluating cells on ThinPrep Pap tests. Following automated imaging, selected anderson from every slide are reviewed by a grinder lap. Normal [facility] Comment on above: Order Comment: Speci men Type: FLUID SPECIMEN Ordering Facility: [facility] Address: [address] [place] [address] Performed By: #### L [id number] #### [facility] CLIA [id number] [address] [place] [address] [place] US FEMALE PELVIS TRANSVAGon 07-18-2023 US FEMALE PELVIS TRANSVAG * * *Final Report* * * DATE OF EXAM: Jul 18 2023 10:42AM WRU 1060 - US FEMALE PELVIS TRANSVAG / PROCEDURE REASON: multiple diagnoses * * * * Physician Interpretation * * * * EXAMINATION: TRANSVAGINAL AND LIMITED TRANSABDOMINAL FEMALE PELVIC ULTRASOUND CLINICAL HISTORY: Left lower quadrant pain. IUD. Abnormal bleeding TECHNIQUE: Sonography of the pelvis was performed by transvaginal and transabdominal (limited) techniques. Images were obtained and stored in a permanent archive. MQ: [id number] COMPARISON: 11/02/2021 RESULT: Exam limited due to patient inability to optimally empty her urinary bladder. Also limited by patient build Uterus: -Size: 6.9 x 3.5 x 3.7 cm -Orientation: Anteverted -Endometrial echo complex: Evaluation of the endometrium was suboptimal. No endometrial abnormality. The endometrial echo complex measured 0.8 cm. Partially visualized IUD in the endometrium -Cervix: Nabothian cysts present, otherwise unremarkable. -Adenomyosis assessment: There are no sonographic findings of adenomyosis. -Fibroids: There are no fibroids. Right Ovary: 3.9 x 3.8 x 3.8 cm. Simple 3.6 cm cyst within it Left Ovary: 2.7 x 1.9 x 2.1 cm. Simple 1.6 cm cyst within it Free Fluid: No abnormal free fluid is present. IMPRESSION: Suboptimal visualization as described above. Partially visualized IUD. Simple follicular cysts bilaterally Cooler Servicer: ROBERTS CHAPELTheresa Transcribe Date/Time: Jul 18 2023 3:31P Dictated by : HUEY LAWLER MD This examination was interpreted and the report reviewed and electronically signed by: HUEY LAWLER MD on Jul 18 2023 3:35PM EST [id number] Normal [facility] HCG ( test) Ql (U)O rdered By: Mary Kate Brody on 06-28-2023 Beta HCG ( test) Ql Negative Negative [facility] Interpretation and review of laboratory results Normal [facility] HCG QUALITATIVE, URINEon Beta HCG ( test) Ql (U) Negative Normal Negative [facility] Comment on above: Performed By: #### U HCG #### U [facility] (DEFAULT) [address] [place] [address] [place] Unspecified body region d uring surgeryOrdered By: Unassigned Pacs on 06-28-2023 [facility] Work Phone: [place] Unspecified body region d uring surgeryon 06-28-2023 Radiology Study observation (narrative) [facility] CT HIP RIGHT WITHOUT CONTRAS T WITH 3D FOR SURGICAL PLANNINGon 06-16-2023 CT HIP RIGHT WITHOUT CONTRAST WITH 3D FOR SURGICAL PLANNING EXAM: CT HIP RIGHT WITHOUT CONTRAST WITH 3D FOR SURGICAL PLANNING, 06/15/2023 09:23 AM COMPARISON: Right hip radiographs May 09, 2023 CLINICAL INDICATIONS: preop planning; RELEVANT CLINICAL HISTORY: M25.851:Right hip impingement syndrome Please follow low dose hip protocol, 3d reconstructions with acetabular and femoral version measurements.; TECHNIQUE: Contiguous 0.625 x 0.3125 mm transaxial images were performed through the hip joint. The images were then reconstructed in the coronal, sagittal, and axial planes at 1.25-2.5 mm intervals. TECHNIQUE IV CONTRAST: No intravenous contrast was administered. TECHNIQUE 3D IMAGES: Multiplanar 3-dimensional reconstructed images of the hip were also obtained at an independent workstation. FINDINGS: Soft Tissue: No focal soft tissue swelling. No pathologically enlarged lymph nodes within the [id number]. Intrauterine device is in place within the pelvis. Prominent right ovarian follicles. Bone: No acute osseous abnormality. Sacroiliac joints and symphysis pubis appear anatomically aligned. Mild facet arthrosis of the lower lumbar spine. Hip: Femoral head is seated in the acetabulum. Minimal osteophytosis along the lateral margin of the acetabulum. Fibrocystic changes are evident at the femoral head/neck junction anteriorly. The alpha angle measures 52 degrees. Femoral version measures +15.5 degrees. Acetabular version on standardized axial images at 12:00, 1:00, and 3:00 measures 12 degrees, 24 degrees, 29 degrees. 3D reconstruction was performed on an independent workstation based on specific patient condition and were reviewed and approved by Júnior Castillo MD. The post-processed images contributed with the following findings: Precise assessment of osseous anatomy for purposes of preoperative planning. IMPRESSION: No acute abnormality or significant cam lesion. Femoral and acetabular version measurements given above. Normal [facility] 06-14-2023 MERRY Telephone (OBGYWM) -------- JESSICA ACUNA ([id number]) 1995 F Date Time Provider Department 06/14/23 TIFFANIE SCHMIDT OBJAZWSuki During your visit today, we recorded the following information about you: Danna Rosado RN 06/14/2023 3:04 PM Signed Patient states she went to the bathroom and when she wiped she could feel her IUD strings. Having spotting and left sided pelvic pain. Pain rate of 7 out of 10. Patient does not live in [place] and plans to go to local ER. She has hip surgery coming up on 06/28/23. If this IUD needs removed, patient is wanting to replace it before her surgery. Patient to call the office with an update. Lluvia Garcia RN, LPN 06/14/2023 4:04 PM Signed . Tiffanie Schmidt APRN.LAURIE 06/15/2023 5:32 PM Signed Please call pt for patient update. Tiffanie Schmidt APRN.Danna Muse RN 06/16/2023 8:26 AM Signed Left message for patient to call office. Myla Engel RN, RN 06/17/2023 3:28 PM Signed In care everywhere it shows patient went to [facility] on 06/14/23, but can only see lab results. Requested records from [place]. Myla Sawyer RN, RN 06/17/2023 3:55 PM Signed Records received from [place] and spoke to patient. She did not have IUD removed in ER. Physician only did pelvic exam and she did not have u/s done. She is still having LLQ pain constantly. Movement seems to make it worse. Rates 8/10 on pain scale when she is on her feet all day at work. She has oxycodone from her doctor who is doing her hip surgery, so she takes that at bedtime anyway and she is at least able to sleep. Concerned with pain because her hip surgery is on 06/28/23. ER records to to review. Tiffanie Gonzalez RN, APRN.CNP 06/17/2023 4:09 PM Signed ED note reviewed. IUD strings were visualized extruding from cervical os. Pelvic ultrasound ordered for pain and IUD localization. MARCELLA Beach Jennifer RN 06/17/2023 4:41 PM Signed Soonest appointment is 06/27 in Radiology. Scheduled. Tiffanie Klein RN, APRN.CNP 06/17/2023 4:48 PM Signed Noted. Tiffanie Schmidt APRN.CNP Allergies As of Date: 06/14/2023 Noted Allergy Reaction PENICILLINS 02/22/2011 4 - Hives Date Reviewed: 10/28/2022 Reviewed by: Kelly Leal PA-C - Fully Assessed Reason for Visit: Pelvic Pain [282] Primary Visit Diagnosis:LLQ pain [R10.32] Other Visit Diagnosis:IUD (intrauterine device) in place [Z97.5] Order(s):US FEMALE PELVIS TRANSVAG [[id number]] Order #: [id number] FUTURE Prescriptions as of 06/17/2023 - DULoxetine (CYMBALTA) 60 mg capsule Take 60 mg by mouth once daily. - ALBUTEROL INHALATION Inhale as instructed. - omeprazole (PRILOSEC) 20 mg capsule Take 1 capsule by mouth once daily. - levonorgestrel (MIRENA) 20 mcg/24 hours (7 yrs) 52 mg IUD 1 Each by INTRAUTERINE route as directed. - BREO ELLIPTA 200-25 mcg/dose inhaler INHALE 1 PUFF BY MOUTH ONCE DAILY Problem List As Of Date 06/14/2023 Noted Resolved Obesity [E66.9] 10/28/2022 Asthma [J45.909] 10/28/2022 Anxiety [F41.9] 10/28/2022 GERD (gastroesophageal reflux disease) [K21.9] 10/28/2022 Encounter Status:Closed by DANNA ROSADO RN on 06/17/23 Normal [facility] XR HIP RIGHT 4 VIEWSon 05-09 XR HIP RIGHT 4 VIEWS EXAM: XR HIP RIGHT 4 VIEWS VIEWS, 05/09/2023 13:03 PM COMPARISON: No prior studies available for comparison. CLINICAL INDICATIONS: R hip pain RELEVANT CLINICAL HISTORY: M25.551:Right hip pain AP Pelvis (Standing)/ AP and 45 degree Soliman View Right side and False profile view (all views with 30 MM calibration marker. Please place close to affected hip at the level of the bone but without obscuring bone detail); FINDINGS: 5 images obtained. Soft Tissue: There is no obvious soft tissue swelling. Intrauterine device in place. Bone: No acute osseous abnormality is identified. Hip: The hip joint is anatomically aligned. IMPRESSION: No specific osseous abnormality in the right hip. Normal [facility] Basic metabolic 2000 panelon 10-28-2022 Anion gap [Moles/Vol] 10 mmol/L 9 - 18 mmol/L [facility] Calcium [Mass/Vol] 9.0 mg/dL 8.5 - 10. 2 mg/dL [facility] Chloride [Moles/Vol] 103 mmol/L 97 - 10 5 mmol/L [facility] CO2 [Moles/Vol] 23 mmol/L 22 - 30 mmol/L [facility] Creatinine [Mass/Vol] 0.87 mg/dL 0.58 - 0.96 mg/dL [facility] Estimated Glomerular Filtration Rate 93 mL/min/1.73m >=60 mL/min/1.73 m [facility] Glucose [Mass/Vol] 108 mg/dL High 74 - 99 mg/dL [facility] Potassium [Moles/Vol] 3.8 mmol/L 3.7 - 5.1 mmol/L [facility] Sodium [Moles/Vol] 136 mmol/L 136 - 144 mmol/L [facility] Urea nitrogen [Mass/Vol] 15 mg/dL 7 - 21 mg/dL [facility] CBC W Auto Differential pane l (Bld)on 10-28-2022 Basophils (Bld) [#/Vol] 0.10 10*3/uL <0.11 k/uL [facility] Basophils/100 WBC (Bld) 1.0 % C [facility] Differential cell count method Nom (Bld) Auto [facility] Eosinophils (Bld) [#/Vol] 0.30 10*3/uL <0.46 k/uL [facility] Eosinophils/100 WBC (Bld) 3.1 % [facility] Erythrocyte distribution width (RBC) [Ratio] 12.7 % 11.5 - 15.0 % [facility] Hematocrit (Bld) [Volume fraction] 42.9 % 36.0 - 46.0 % [facility] Hemoglobin (Bld) [Mass/Vol] 15.1 g/dL 11.5 - 15.5 g/dL [facility] Immature granulocytes (Bld) [#/Vol] 0.03 10*3/uL <0.10 k/uL [facility] Immature granulocytes/100 WBC (Bld) 0.3 % [facility] Lymphocytes (Bld) [#/Vol] 2.03 10*3/uL 1.00 - 4.00 k/uL [facility] Lymphocytes/100 WBC (Bld) 21.1 % [facility] MCH (RBC) [Entitic mass] 29.2 pg 26.0 - 34.0 pg [facility] MCHC (RBC) [Mass/Vol] 35.2 g/dL 30.5 - 36.0 g/dL [facility] MCV (RBC) [Entitic vol] 82.8 fL 80.0 - 100.0 fL [facility] Monocytes (Bld) [#/Vol] 0.60 10*3/uL <0.87 k/uL [facility] Monocytes/100 WBC (Bld) 6.2 % C [facility] Neutrophils (Bld) [#/Vol] 6.57 10*3/uL 1.45 - 7.50 k/uL [facility] Neutrophils/100 WBC (Bld) 68.3 % [facility] Nucleated RBC (Bld) [#/Vol] <0.01 k/uL [facility] Nucleated RBC/100 WBC (Bld) [Ratio] 0.0 /100 WBC [facility] Platelet mean volume (Bld) [Entitic vol] 10.3 fL 9.0 - 12.7 fL [facility] Platelets (Bld) [#/Vol] 272 10*3/uL 150 - 400 k/uL [facility] RBC (Bld) [#/Vol] 5.18 10*6/uL 3.90 - 5.2 0 m/uL [facility] WBC (Bld) [#/Vol] 9.63 10*3/uL 3.70 - 11.00 k/uL [facility] CNPNon 07-05-2022 CNPN Telephone (AGSPINE3) -------- JESSICA ACUNA ([id number]) 1995 F Date Time Provider Department 07/05/22 MARKOS OVERTON AGSPINE3 During your visit today, we recorded the following information about you: Angélica London 07/05/2022 3:08 PM Signed ----- Message from Daylin Ramos sent at 07/05/2022 2:30 PM EDT ----- Regarding: Spine/Violeta Overton)/Ref erral Question Subject Line Format: Medicine / [Provider Name] / [Issue] Patient has been identified by name and Date of (Y/N): Y Patient: Jessica Acuna Date of : 1995 Provider for this encounter: Markos Overton MD Reason for the call/escalation: Patient [facility] Stated PCP has referred patient to Dr. Fatoumata Overton. Patient would like to know if the [facility] is the correct place where she should be scheduling or if she needs to go to the [facility]. Was Patient Referred to [facility]/Seek Emergency Treatment (Y/N): N Did Patient Agree (Y/N): na Was An Attempt Made To Transfer The Patient To The Office (Y/N): N Were You Able To Reach Someone At The Office (Y/N): na If Yes - Patient Was Transferred To (Caregivers Name): na If No - Which [facility] Leadership Machine Driller Did You Speak With Regarding This Patient: na Was an appointment scheduled (Y/N): N Reason patient was requesting visit (RFV/signs and symptoms/diagnosis) : Referral Question Person calling if other than patient: Patient Return call to if other than patient: na Best contact number: [phone] Thank you, Daylin Ramos July 05, 2022 2:30 PM Angélica Vega 07/05/2022 3:09 PM Signed Patient would like to schedule with Dr Overton in [place] Business Area Director [facility] [address] [place] [address] P: [phone] F: [phone] [email or web address] Allergies As of Date: 07/05/2022 Noted Allergy Reaction PENICILLINS 02/22/2011 4 - Hives Date Reviewed: 06/18/2022 Reviewed by: Becka Tena Ma - Fully Assessed Reason for Visit: New Patient [172] Prescriptions as of 07/05/2022 - meloxicam (MOBIC) 15 mg tablet Take 1 tablet by mouth once daily. With food. - colestipol (COLESTID) 1 gram tablet Take 1 tablet by mouth twice daily. - omeprazole (PRILOSEC) 20 mg capsule Take 1 capsule by mouth once daily. - losartan (COZAAR) 25 mg tablet Take 1 tablet by mouth once daily. - labetalol (TRANDATE) 200 mg tablet Take by mouth. - metFORMIN ER (GLUCOPHAGE XR) 500 mg 24 hr tablet - levonorgestrel (MIRENA) 20 mcg/24 hours (7 yrs) 52 mg IUD 1 Each by INTRAUTERINE route as directed. - BREO ELLIPTA 200-25 mcg/dose inhaler INHALE 1 PUFF BY MOUTH ONCE DAILY - miSOPROStol (CYTOTEC) 200 mcg tablet Insert 2 tablets vaginally night prior to procedure and 2 tablets morning of procedure. Each dose should be in vagina for 6-8 hours. Problem List As Of Date: 07/05/2022 (None) Encounter Status:Closed by ANGÉLICA VEGA on 07/05/22 [facility] CNChristelle 06-18-2022 CNOV Office Visit (ORFWHP ) -------- JESSICA ACUNA ([id number]) 1995 F Date Time Provider Department 06/18/22 3:00 PM RAYMOND BRAMBILA ORFWHP During your visit today, we recorded the following information about you: Raymond Brambila MD 06/18/2022 3:29 PM Signed NEW ENCOUNTER This patient is being seen at the request of PCM and the progress note from this visit will be communicated via shared medical record Chief Complaint: right Hip pain PAIN INTAKE: PAIN EVALUATION No data found in the last 1 encounters. History: Patient is a 27 year old female presenting for evaluation of right hip pain. She denies an acute injury event.. Date of injury/duration of pain: years, worse the last 6 months Location: Groin Intensity: Moderate Quality: Aching Job Related: No Symptoms with the following activities: Increased activity and work The following things help the symptoms: Rest, IBU, heat, PT, stretching RIGHT Hip MRI 06/03/2022: IMPRESSION: Tearing of the anterior and superolateral right acetabular labrum. 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 With food. (Patient not taking: No sig reported) colestipol (COLESTID) 1 gram tablet Take 1 tablet by mouth twice daily. omeprazole (PRILOSEC) 20 mg capsule Take 1 capsule by mouth once daily. losartan (COZAAR) 25 mg tablet Take 1 tablet by mouth once daily. labetalol (TRANDATE) 200 mg tablet Take by mouth. (Patient not taking: No sig reported) metFORMIN ER (GLUCOPHAGE XR) 500 mg 24 hr tablet (Patient not taking: Reported on 06/04/2022) levonorgestrel (MIRENA) 20 mcg/24 hours (7 yrs) 52 mg IUD 1 Each by INTRAUTERINE route as directed. BREO ELLIPTA 200-25 mcg/dose inhaler INHALE 1 PUFF BY MOUTH ONCE DAILY miSOPROStol (CYTOTEC) 200 mcg tablet Insert 2 tablets vaginally night prior to procedure and 2 tablets morning of procedure. Each dose should be in vagina for 6-8 hours. (Patient not taking: No sig reported) Allergies: ALLERGIES Allergen Reactions Penicillins Hives REVIEW OF SYSTEMS: Patient reports no change in past medical AND surgical history, medications, allergies, social history, family history and review of systems Allergies, medications, past surgical history and past medical history were reviewed per this encounter. Physical Examination: Region: Hip General Appearance: Appears healthy, well-nourished, no deformities. BMI 51 Neck/Spine/Station/Gait: Normal gait Left Exam: AROM: 0-1 100/15/65 PROM: Normal Point Tenderness location: none Swelling/Effusion: none Stability: normal Muscle Strength: normal Sensation:normal Reflexes:normal Skin: normal Pulses: normal Special Tests: XIOMY ER is to level 1 Right Exam: AROM: 0 to 90/0/45 PROM: Same as active Point Tenderness location:none Swelling/Effusion: none Stability: normal Muscle Strength: normal Sensation:normal Reflexes:normal Skin: normal Pulses: normal Special Tests: Positive FADIR, XIOMY ER is to level 2 Images have been personally reviewed by me and discussed with patient. Abnormal, anterior superior labrum tear Last MRI Hip/Pelvis - Impression Only MRI HIP WO IVCON RT Exam End: 06/03/2022 9:32 AM (Final result) Impression: IMPRESSION: Tearing of the anterior and superolateral right acetabular labrum. Cooler Servicer: ALEX Transcribe Date/Time: Jun 03 2022 9:50A ... Assessment and Plan: Right hip anterior labrum tear Discussed options including continued physical therapy and cortisone injection. Discussed the prevalence of asymptomatic labrum tears in the general population. Patient is very tearful and frustrated with progress. Interested in surgery. I discussed hip arthroscopy with labrum repair. I discussed the risk, benefits, postoperative debilitation, convalescence and appropriate outcome expectations. More specifically I discussed risk factors associated with potential poor outcome for persistent pain after hip surgery. These are BMI, mental health, and preoperative pain score. She has at least 2 out of these 3. I reiterated the importance of this point and made sure that she understands that surgery can have complications and risk for less than satisfactory outcome. She verbalized understanding of this discussion. Specifically for her we will need a [place] table and this will need to be done at the hospital. We will need Darinel AND Rowdy extended (more content not included)... Normal [facility] MRI HIP WO IVCON RTon 2021 [facility] Basophil percentageon 2021 Basophil percentage 0 SEEN /hpf 0-5 [facility] Work Phone: Bilirubin Test strip Ql (U)o n 03-22-2022 Bilirubin Ql (U) Negative Negative [facility] Work Phone: Ketones Test strip Ql (U)on 03-22-2022 Ketones Ql (U) Negative Negative [facility] Work Phone: Laboratory - Chemistry and C hemistry - challengeon 03-22-2022 HCG ( test) Ql (U) Negative [facility] Work Phone: Comment on above: Very dilute urine sp ecimens, as indicated by a low specificgravity, may not contain signs and displays sales representative levels of hCG. If is still suspected, a first morning urinespecimen should be collected 48 hours later and tested. Mucus LM Ql (Urine sed)on Mucus Ql (Urine sed) 0 SEEN /hpf [facility] Work Phone: Nitrite Test strip Ql (U)on 03-22-2022 Nitrite Ql (U) Negative Negative [facility] Work Phone: Protein Test strip Ql (U)on 03-22-2022 Protein Ql (U) Negative Negative [facility] Work Phone: Squamous epithelial cells de tection in urine sediment by light microscopyon 03-22-2022 Epithelial cells.squamous LM Ql (Urine sed) 0-5 SEEN /hpf 5-10 [facility] Work Phone: Urine blood detectionon - RBC Ql (U) 10 /ul Negative [facility] Work Phone: RBC Ql (U) 0-5 SEEN /hpf 0-5 [facility] Work Phone: Urine clarityon 03-22-2022 Clarity (U) Sl. Cloudy Clear [facility] Work Phone: Urine color determinationon 03-22-2022 Color (U) Yellow Yellow [facility] Work Phone: Urine glucose detectionon Glucose Ql (U) Normal mg/dl Normal [facility] Work Phone: [phone] Urine leukocyte esterase det ection by dipstickon 03-22-2022 Leukocyte esterase Test strip Ql (U) Negative Negative [facility] Work Phone: Urine pHon 03-22-2022 pH (U) 7.0 [pH] 5.0 - 8.0 [facility] Work Phone: Urine sediment bacteria coun t by microscopy (number/high power field)on 03-22-2022 Bacteria LM.HPF (Urine sed) [#/Area] 0 /[HPF] None Seen [facility] Work Phone: Urine specific gravity measu rementon 03-22-2022 Specific gravity (U) [Rel density] 1.010 1.002-1.030 [facility] Work Phone: Urobilinogen Auto test strip Ql (U)on 03-22-2022 Urobilinogen Ql (U) Normal mg/dl Normal [facility] Work Phone: B TestoSHBG,fem,chilon 04-15 Sex Hormon Bind Glb 69 nmol/L Normal 30-135 [facility] Comment on above: Performed By: #### P ROL #### [facility] Routine Lab [address] [place], [place] [address] #### [id number] #### [facility] Chemistry [address] [place], [place] [address] Testos Bioavail 9.4 ng/dL Normal 2.2-20.6 [facility] Reference Lab Comment on above: Performed By: #### P ROL #### [facility] Routine Lab [address] [place] [phone] #### [id number] #### [facility] Chemistry [address] [place] [phone] Testosterone [Mass/Vol] 34 ng/dL Normal 9-55 [facility] Reference Lab Comment on above: Performed By: #### P ROL #### [facility] Routine Lab [address] [place] [phone] #### 125VTD #### [facility] Chemistry [address] [place] [phone] Testosterone Free 3.6 pg/mL Normal 0.8-7.4 [facility] Reference Lab Comment on above: Performed By: #### P ROL #### [facility] Routine Lab [address] [place] [phone] #### 125VTD #### [facility] Chemistry [address] [place] [phone] VitD, 1,25 Dihydroxyon 04-14 1,25 Dihydroxy VitD2 <4.0 Normal [facility] Reference Lab Comment on above: Performed By: #### P ROL #### [facility] Routine Lab [address] [place] [phone] #### 125VTD #### [facility] Chemistry [address] [place] [phone] 1,25 Dihydroxy VitD3 60.9 pg/mL Normal [facility] Reference Lab Comment on above: Performed By: #### P ROL #### [facility] Routine Lab [address] [place] [phone] #### 125VTD #### [facility] Chemistry [address] [place] [phone] Vit D,1,25 DiOH High 15.0-60.0 [facility] Reference Lab Comment on above: Result Comment: 60.9 This test was developed and its performance characteristics determined by [facility]'s [facility] [place] ([facility]). It has not been cleared or approved by the FDA. [facility] is regulated under CLIA as qualified to perform high complexity testing. This test is used for clinical purposes. It should not be regarded as investigational or for research. Performed By: #### P ROL #### [facility] Routine Lab [address] [phone] #### 125VTD #### [facility] Chemistry [address] [place] [phone] HydroxyProgesteroneon 2020 HydroxyProgesterone 16.70 ng/dL Normal <=206.00 [facility] Reference Lab Comment on above: Performed By: #### P ROL #### [facility] Routine Lab [address] [place] [phone] #### 125VTD #### [facility] Chemistry [address] [place] [phone] Androstenedioneon 04-10-2021 Androstenedione 1.6 ng/mL Normal 0.3-3.3 [facility] Reference Lab Comment on above: Performed By: #### A NDROS #### [facility] Immuno Assay [address] [place] [address] DHEA-Son 04-09-2021 DHEA-S 242.4 ug/dL Normal 98.8-340.0 [facility] Reference Lab Comment on above: Performed By: #### D HEAS #### [facility] Routine Lab [address] [place] [phone] Hemoglobin A1con 04-09-2021 Glucose [Mass/Vol] 111 mg/dL Normal [facility] Reference Lab Comment on above: Performed By: #### H BA1C #### [facility] Routine Lab [address] [place] [phone] HbA1c (Bld) [Mass fraction] 5.5 % Normal 4.3-5.6 [facility] Reference Lab Comment on above: Performed By: #### H BA1C #### [facility] Routine Lab [address] [address] Prolactinon 04-09-2021 Prolactin 16.0 ng/mL Normal 4.5-26.8 [facility] Reference Lab Comment on above: Performed By: #### P ROL #### [facility] Routine Lab [address] [address] #### 125VTD #### [facility] Chemistry [address] [id number] Final Surgical Pathology Rep [facility] 11-07-2020 Final Surgical Pathology Report . Pathology Reports Accession: Collected Date/Time: Received Date/Time: Pathologist: [id number] 11/05/2020 12:05 EST 11/06/2020 09:08 TONY SHEA MD Final Surgical Pathology Report DIAGNOSIS: GALLBLADDER, CHOLECYSTECTOMY SPECIMEN: MILD CHRONIC CHOLECYSTITIS. COMMENT: JP - [id number] CLINICAL INFORMATION: BILIARY DYSKINESIA SPECIMEN: A GALLBLADDER GROSS DESCRIPTION: A. Received in formalin, labeled with the patients name, Case #[id number], and gallbladder Dimensions-6.3 x 3 x 1.6 cm Cystic duct/pericystic duct lymph node-patent, no lymph node Serosal msgxell-tedpmxu-tafahm, smooth with a hepatic bed defect measuring 1.5 x 1.2 cm Luminal contents-green liquid bile and no calculi Mucosal surface-hector -green, velvety with yellow specks throughout Wall thickness-0.3 cm RS- 1 Dictated by NIKKY DEAN MICROSCOPIC DESCRIPTION: Slides reviewed. Electronically Signed by Pathology Report verified by [facility] Electronically signed by TONY HOWARD Sign out Date: 11/07/2020 15:22 Performing Lab: [facility], [address] [place] [address] ([place]) Comment on above: Performed By: #### S PFR #### [address] [place] [address] BHCG (URINE)on 10-07-2017 HCG.beta subunit ( test) Ql (U) Negative Normal NEGATIVE [facility] Comment on above: Result Comment: Seru m Test is more Sensitive than a UrinePregnancy Test. Please Note Threshold Values: SERUM - 10mlU/mL URINE - 20mlU/mL Performed By: #### L 200.4105 ####ML - [facility] [id number] [place] [address] OPERATIVE NOon 10-07-2017 OPERATIVE NO HNO ID: [id number]: Alesia Ross: (none)Author Type: PhysicianType: Operative ReportFiled: 08/03/2018 1:29 PMNote Text:[place], [place] [address]FDCFDS INFORMATION MANAGEMENTOPERATIVE REPORTPatient: SOHAIL ACUNA AND REW W D.P.M.[id number] FStatus: [facility] AMBDATE OF [id number]/07/2017HISTORY OF PRESENT ILLNESSA 22-year-old female had been a patient in the office as well as seenmultiple podiatrists for chronic plantar fasciitis. The right foot isworse than the left. I have reviewed and obtained signed consent for aninstep plantar fasciotomy of the right foot. The patient had anessentially normal CBC recently drawn, and I had her get x-rays [facility] preoperatively which showed that there is just aplantar heel spur. The patient understands there is no guarantees tooutcome for the procedure. I have discussed risks and benefits. Thepatient wishes to proceed.PREOPERATIVE DIAGNOSISPlantar fasciitis of the right foot.POSTOPERATIVE DIAGNOSISPlantar fasciitis of the right foot.PROCEDURE PERFORMEDInstep plantar fasciotomy of the right foot.SURGEONDr. Alesia Garcia D.P.M., postgraduate year 1.ANESTHESIAIV General with local.HEMOSTASISRight ankle tourniquet.ESTIMATED BLOOD LOSSMinimal.COMPLICATION SNone.SPECIMENNone.DESCR IPTION OF OPERATIONUnder mild sedation the patient was brought to the operating room, placedon the operating table in supine position. Right ankle tourniquet wasplaced. The right foot after the patient was given IV general anestheticwas locally anesthetized with a total of 10 mL of 1% lidocaine plainabout the operative site. The right foot was then scrubbed, prepped anddraped in the usual aseptic manner. Esmarch was used to exsanguinate theright foot. Tourniquet was inflated to 250 mm of pressure. Attention wasdirected to the plantar medial instep where a transverse linear incisionwas made with relaxed skin tension lines just distal to the calcaneal fatpad and the medial one half of the foot. Incision was deepened throughsubcutaneous tissue using sharp and blunt dissection down to the level ofthe plantar fascial ligament. The ligament was identified and was sharplycut with a 15 blade. This was cut jail across. It was quite thick.Once we released the ligament there was bright red muscle belly notedunderneath the ligament. The surgical site was flushed with copiousamounts of saline once we had adequate release. A 4-0 Vicryl suture wasused for the subcutaneous tissue for closure and 4-0 Prolene was used in ahorizontal mattress fashion to reapproximate the skin edges. The patienttolerated the procedure and anesthesia well and was transported from theOR to recovery with vital signs stable and vascular status intact to [facility] lower extremity. The patient will be discharged per anesthesia andgiven home going instructions. 10/20/17 0638 STACIA WALKER D.P.M.cc: SHADI WHITLOCK III, M.D.; ALESIA WALKER D.P.M. << Signature on File>> Reported By: ALESIA WALKER D.P.M. Signed By: ALESIA WALKER D.P.M.Tests performed at:[address] [phone] [facility] OPERATIVE REPORTon 8 OPERATIVE REPORT [place], [place] [address]FLOVCJ INFORMATION MANAGEMENTOPERATIVE REPORTPatient: SOHAIL ACUNA AND REW W D.P.M.[id number] FStatus: [facility] AMBDATE OF [id number]/07/2017HISTORY OF PRESENT ILLNESSA 22-year-old female had been a patient in the office as well as seen multiple podiatristsfor chronic plantar fasciitis. The right foot is worse than the left. I have reviewed andobtained signed consent for an instep plantar fasciotomy of the right foot. The patienthad an essentially normal CBC recently drawn, and [facility] there is just a plantar heel spur. The patientunderstands there is no guarantees to outcome for the procedure. I have discussed risksand benefits. The patient wishes to proceed.PREOPERATIVE DIAGNOSISPlantar fasciitis of the right foot.POSTOPERATIVE DIAGNOSISPlantar fasciitis of the right foot.PROCEDURE PERFORMEDInstep plantar fasciotomy of the right foot.SURGEONDr. Alesia Garcia D.P.M., postgraduate year 1.ANESTHESIAIV General with local.HEMOSTASISRight ankle tourniquet.ESTIMATED BLOOD LOSSMinimal.COMPLICATION SNone.SPECIMENNone.DESCR IPTION OF OPERATIONUnder mild sedation the patient was brought to the operating room, placed on the operatingtable in supine position. Right ankle tourniquet was placed. The right foot after thepatient was given IV general anesthetic was locally anesthetized with a total of 10 mL of1% lidocaine plain about the operative site. The right foot was then scrubbed, prepped anddraped in the usual aseptic manner. Esmarch was used to exsanguinate the right foot.Tourniquet was inflated to 250 mm of pressure. Attention was directed to the plantarmedial instep where a transverse linear incision was made with relaxed skin tension linesjust distal to the calcaneal fat pad and the medial one half of the foot. Incision wasdeepened through subcutaneous tissue using sharp and blunt dissection down to the level ofthe plantar fascial ligament. The ligament was identified and was sharply cut with a 15blade. This was cut jail across. It was quite thick. Once we released the ligamentthere was bright red muscle belly noted underneath the ligament. The surgical site wasflushed with copious amounts of saline once we had adequate release. A 4-0 Vicryl suturewas used for the subcutaneous tissue for closure and 4-0 Prolene was used in a horizontalmattress fashion to reapproximate the skin edges. The patient tolerated the procedure andanesthesia well and was transported from the OR to recovery with vital signs stable andvascular status intact to the right lower extremity. The patient will be discharged peranesthesia and given home going instructions. 10/20/17 0638 STACIA WALKER D.P.M.cc: SHADI WHITLOCK III, M.D.; ALESIA WALKER D.P.M. << Signature on File>> Reported By: ALESIA WALKER D.P.M. Signed By: ALESIA WALKER D.P.M.Tests performed at:[address] [phone] Normal [facility] HISTORY PHYSICALon HISTORY PHYSICAL HNO ID: [id number]: Alesia WalkerService: (none)Author Type: PhysicianType: HANDPFiled: 08/03/2018 1:22 PMNote Text:[place], [place] [address]VXJOBV INFORMATION MANAGEMENTSURGICAL HISTORY AND PHYSICALPatient: SOHAIL SNELL ANDR EW W D.P.M.[id number] FStatus: PRE SDC AMBDATE OF [id number]/05/2018HISTO RY OF PRESENT ILLNESSThis 22 year-old female had presented to the office back in July 2015with plantar fasciitis bilaterally. The patient over the past severalyears has been treated by myself and other podiatrists for the plantarfasciitis. She has had custom made orthotics, stretching, icing,antiinflammatory medications as well as steroid injections. Theseattempts to treat her pain have failed. The patient wishes to forego anyfurther conservative treatment at this time and would like to proceedwith surgery for the plantar fasciitis, particularly on the right foot.This foot is worse than the left foot. I have discussed with the patientan instep plantar fasciotomy procedure to release the plantar fascialigament to the right foot. The patient understands and would like toproceed.PAST MEDICAL HISTORYPast medical history is remarkable for foot problems, asthma, irritablebowel syndrome, chronic bronchitis.MEDICATIONSCu rrent medications consist of Sprintec 28, this is 0.25/35 mg/mcg daily,Symbicort 160-4.5 mcg per inhaled two puffs twice daily.ALLERGIESAmoxicill in which caused hives, and pollens which are seasonal allergiesfor her.PAST SURGICAL HISTORYShe had tonsillectomy previously.FAMILY HISTORYRemarkable for CVA which her grandpa has had, diabetes her grandpa had.Her grandpa had hypertension, hypercholesterolemia and previous [place].Mother has asthma. Mother and grandma have arthritis.SOCIAL HISTORYThe patient is single. 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 Thepatient denies tobacco, alcohol, illicit drug use. Has three caffeinatedbeverages per day.REVIEW OF SYSTEMSThe patient is in general good health. She complains of chronic cough,shortness of breath, wheezing at times with respiratory system. She alsocomplains of occasional heartburn with gastrointestinal system.Complains of cold intolerance with endocrine system. Denies any othercomplaints.PHYSICAL EXAMINATIONVital signs: Most recent vitals are from 05/11/2017. She had a pulse of99, blood pressure is 131/86. She is 225 pounds, 68 inches tall with aBMI of 34.21 kg/m2. General: Patient is alert and oriented x3.Vascular: DP, PT pulses are palpable to the lower extremitiesbilaterally. Capillary fill time is less than 3 seconds to digits onethrough five bilaterally. There is no edema noted.Derm: Skin turgor is good, within normal limits. She has no rashes orsuspicious lesions noted to bilateral lower extremities. Skin color isnormal. Skin moisture is normal bilaterally. Skin temperature is warmto warm from tibial tuberosity to distal toes bilaterally. Texture isnormal, thickness is normal and hair growth is present.Neurologically, epicritic sensations are intact bilaterally. No clonusnoted. Patient has negative Babinski exam.Musculoskeletal system: The patient has no pain with palpation of thetibia/fibula. No pain with palpation of the ankle joint bilaterally.Her muscle strengths are 5/5 for the gastrocnemius, tibialis anterior,tibialis posterior and peroneal muscle groups bilaterally. The patienthas normal subtalar joint range of motion b/l. The patient has painat the plantar fascial insertion. This is described as moderate, sharp,stabbing pain. Her pain is with palpation of the medial plantar fascialinsertion bilaterally. Again, the right foot is worse than the left.There is also pain with palpation on the medial band of the plantarfascia ligament bilaterally, and mild pain with lateral compression of the right calcaneus was noted. There is no erythema, edema or increasedwarmth noted. The toes are unremarkable. The patient has fairly higharch foot type bilaterally. The patient had been ambulating with weightmore to the outside of the foot to offload the plantar fascia ligament.In reviewing back through the chart, [place] Pt. has recently [facility] showing plantarspur without any fractures, bony tumors, or lytic lesions.ASSESSMENT1. Plantar fasciitis, right greater than left, causing pain.PLAN1. I will review and obtain signed consent for the procedure of the rightfoot the day of surygerfor right foot plantar instep fasciotomy.procedure.2. The patient understands there is no guarantee as to outcome.3. Discussed risks of surgery including, but not limited to, infection,over lengthening of the ligament, under lengthening of the ligament,painful scar formation, numbness along the incision line, swelling, painand complications from anesthesia. The patient understands, wishes toproceed.4. Patient is to be n.p.o. midnight before surgery.5. For preoperative clearance she is going to see her family doctor and Ihave ordered just a CBC. She has not had any pulmonary issues lately soNo chest x-ray ordered. Pt. to get the CBC at [facility].6. All questions of the patient have been answered satisfactorily. Sheunderstands the risks and benefits of the procedure.7. Patient was dispensed pre and postoperative instructions. She is tocleanse her foot with Hibiclens the night before surgery and the morningof surgery to reduce the risk of postoperative infection.8. I have ordered IV general with local for anesthesia. However, thiswill be given at the discretion of the anesthesiologist.9. We will be awaiting the results of the CBC prior toproceeding with surgery, however, at this time she is scheduled for aninstep plantar fasciotomy of the right foot at [facility] on10/07/2017. ALESIA WALKER D.P.M.cc: SHADI WHITLOCK III, M.D.; ALESIA WALKER D.P.M. << Signature on File>> Reported By: ALESIA WALKER D.P.M. Signed By: ALESIA WALKER D.P.M.Tests performed at:[address] [phone] Normal [facility] SURGICAL HISTORY AND PHYSICA Ronen 10-05-2017 SURGICAL HISTORY AND PHYSICAL [place], [place] [address]JBAZRO INFORMATION MANAGEMENTSURGICAL HISTORY AND PHYSICALPatient: SOHAIL SNELL ANDR EW W D.P.M.[id number] FStatus: PRE SDC AMBDATE OF [id number]/05/2018HISTO RY OF PRESENT ILLNESSThis 22 year-old female had presented to the office back in July 2015 with plantarfasciitis bilaterally. The patient over the past several years has been treated by myselfand other podiatrists for the plantar fasciitis. She has had custom made orthotics,stretching, icing, antiinflammatory medications as well as steroid injections. Theseattempts to treat her pain have failed. The patient wishes to forego any furtherconservative treatment at this time and would like to proceed with surgery for the plantarfasciitis, particularly on the right foot. This foot is worse than the left foot. I havediscussed with the patient an instep plantar fasciotomy procedure to release the plantarfascia ligament to the right foot. The patient understands and would like to proceed.PAST MEDICAL HISTORYPast medical history is remarkable for foot problems, asthma, irritable bowel syndrome,chronic bronchitis.MEDICATIONSCu rrent medications consist of Sprintec 28, this is 0.25/35 mg/mcg daily, Symbicort 160-4.5mcg per inhaled two puffs twice daily.ALLERGIESAmoxicill in which caused hives, and pollens which are seasonal allergies for her.PAST SURGICAL HISTORYShe had tonsillectomy previously.FAMILY HISTORYRemarkable for CVA which her grandpa has had, diabetes her grandpa had. Her grandpa hadhypertension, hypercholesterolemia and previous [place]. Mother has asthma. Mother and grandmahave arthritis.SOCIAL HISTORYThe patient is single. 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 The patient deniestobacco, alcohol, illicit drug use. Has three caffeinated beverages per day.REVIEW OF SYSTEMSThe patient is in general good health. She complains of chronic cough, shortness ofbreath, wheezing at times with respiratory system. She also complains of occasionalheartburn with gastrointestinal system. Complains of cold intolerance with endocrinesystem. Denies any other complaints.PHYSICAL EXAMINATIONVital signs: Most recent vitals are from 05/11/2017. She had a pulse of 99, bloodpressure is 131/86. She is 225 pounds, 68 inches tall with a BMI of 34.21 kg/m2. General:Patient is alert and oriented x3.Vascular: DP, PT pulses are palpable to the lower extremities bilaterally. Capillary filltime is less than 3 seconds to digits one through five bilaterally. There is no edemanoted.Derm: Skin turgor is good, within normal limits. She has no rashes or suspicious lesionsnoted to bilateral lower extremities. Skin color is normal. Skin moisture is normalbilaterally. Skin temperature is warm to warm from tibial tuberosity to distal toesbilaterally. Texture is normal, thickness is normal and hair growth is present.Neurologically, epicritic sensations are intact bilaterally. No clonus noted. Patient hasnegative Babinski exam.Musculoskeletal system: The patient has no pain with palpation of the tibia/fibula. Nopain with palpation of the ankle joint bilaterally. Her muscle strengths are 5/5 for thegastrocnemius, tibialis anterior, tibialis posterior and peroneal muscle groupsbilaterally. The patient has normal subtalar joint range of motion b/l. The patient haspainat the plantar fascial insertion. This is described as moderate, sharp, stabbing pain.Her pain is with palpation of the medial plantar fascial insertion bilaterally. Again, theright foot is worse than the left. There is also pain with palpation on the medial band ofthe plantar fascia ligament bilaterally, and mild pain with lateral compression of theright calcaneus was noted. There is no erythema, edema or increased warmth noted. Thetoes are unremarkable. The patient has fairly high arch foot type bilaterally. Thepatient had been ambulating with weight more to the outside of the foot to offload theplantar fascia ligament.In reviewing back through the chart, because the patient is a [place] patient I do [place]have x-rays out in [place]. Pt. has recently had x-rays at [facility] showingplantarspur without any fractures, bony tumors, or lytic lesions.ASSESSMENT1. Plantar fasciitis, right greater than left, causing pain.PLAN1. I will review and obtain signed consent for the procedure of the right foot the day ofsurygerfor right foot plantar instep fasciotomy.procedure.2. The patient understands there is no guarantee as to outcome.3. Discussed risks of surgery including, but not limited to, infection, over lengtheningof the ligament, under lengthening of the ligament, painful scar formation, numbness alongthe incision line, swelling, pain and complications from anesthesia. The patientunderstands, wishes to proceed.4. Patient is to be n.p.o. midnight before surgery.5. For preoperative clearance she is going to see her family doctor and I have orderedjust a CBC. She has not had any pulmonary issues lately so No chest x-ray ordered. Pt. toget the CBC at [facility].6. All questions of the patient have been answered satisfactorily. She understands therisks and benefits of the procedure.7. Patient was dispensed pre and postoperative instructions. She is to cleanse her footwith Hibiclens the night before surgery and the morning of surgery to reduce the risk ofpostoperative infection.8. I have ordered IV general with local for anesthesia. However, this will be given atthe discretion of the anesthesiologist.9. We will be awaiting the results of the CBC prior toproceeding with surgery, however, at this time she is scheduled for aninstep plantar fasciotomy of the right foot at [facility] on 10/07/2017. ALESIA WALKER D.P.M.cc: WHITLOCKSHADI CAIN III, M.D.; ALESIA WALKER D.P.M. << Signature on File>> Reported By: ALESIA WALKER D.P.M. Signed By: ALESIA WALKER D.P.M.Tests performed at:[address] [phone] Normal [facility] Bronchoalveolar lavage cultu re with Gram stain Respiratory microbial culture or Staphylococcus aureus isolated. [facility] Work Phone: Gram stain for investigation of transfusion reaction Microscopic observation Gram stain Nom (Unsp spec) [facility] Work Phone: Vital Signs Date Time Vital Sign Value Performing Clinician Facility 03-15-2025 13:49-0400 Body height 167.64 cm Tia Ungerer [employer] Work Phone: [facility] 03-15-2025 13:49-0400 Body temperature 98.2 [degF] Tia Ungerer MACHINE HAMPER MAKER-C Work Phone: [facility] 03-15-2025 13:49-0400 Diastolic blood pressure 82 mm[Hg] Tia Ungerer MACHINE HAMPER MAKER-C Work Phone: [facility] 03-15-2025 13:49-0400 Heart rate 88 /min Tia Ungerer MACHINE HAMPER MAKER-C Work Phone: [facility] 03-15-2025 13:49-0400 Respiratory rate 18 /min Tia Ungerer MACHINE HAMPER MAKER-C Work Phone: [facility] 03-15-2025 13:49-0400 SaO2% (BldA) [Mass fraction] 96 % Tia Ungerer MACHINE HAMPER MAKER-C Work Phone: [facility] 03-15-2025 13:49-0400 Systolic blood pressure 138 mm[Hg] Tia Ungerer MACHINE HAMPER MAKER-C Work Phone: [facility] 03-08-2025 15:00-0400 Body height 167.64 cm Tia Ungerer MACHINE HAMPER MAKER-C Work Phone: [facility] 03-08-2025 15:00-0400 Body mass index (BMI) [Ratio] 52.8 kg/m2 Tia Ungerer MACHINE HAMPER MAKER-C Work Phone: [facility] 03-08-2025 15:00-0400 Body temperature 97.1 [degF] Tia Ungerer MACHINE HAMPER MAKER-C Work Phone: [facility] 03-08-2025 15:00-0400 Body weight 148.43 kg Tia Ungerer MACHINE HAMPER MAKER-C Work Phone: [facility] 03-08-2025 15:00-0400 Diastolic blood pressure 88 mm[Hg] Tia Ungerer MACHINE HAMPER MAKER-C Work Phone: [facility] 03-08-2025 15:00-0400 Heart rate 102 /min Tia Ungerer MACHINE HAMPER MAKER-C Work Phone: [facility] 03-08-2025 15:00-0400 Respiratory rate 16 /min Tia Ungerer MACHINE HAMPER MAKER-C Work Phone: [facility] 03-08-2025 15:00-0400 SaO2% (BldA) [Mass fraction] 100 % Tia Ungerer MACHINE HAMPER MAKER-C Work Phone: [facility] 03-08-2025 15:00-0400 Systolic blood pressure 148 mm[Hg] Tia Ungerer MACHINE HAMPER MAKER-C Work Phone: [facility] 02-26-2025 15:56-0400 Body temperature 97.4 [degF] Tia Ungerer MACHINE HAMPER MAKER-C Work Phone: [facility] 02-26-2025 15:56-0400 Diastolic blood pressure 94 mm[Hg] Tia Ungerer MACHINE HAMPER MAKER-C Work Phone: [facility] 02-26-2025 15:56-0400 Heart rate 81 /min Tia Ungerer MACHINE HAMPER MAKER-C Work Phone: [facility] 02-26-2025 15:56-0400 Respiratory rate 16 /min Tia Osorioerer MACHINE HAMPER MAKER-C Work Phone: [facility] 02-26-2025 15:56-0400 SaO2% (BldA) [Mass fraction] 100 % Tia Ungerer MACHINE HAMPER MAKER-C Work Phone: [facility] 02-26-2025 15:56-0400 Systolic blood pressure 151 mm[Hg] Tia Osorioerer MACHINE HAMPER MAKER-C Work Phone: [facility] 02-26-2025 12:37-0400 Body height 167.64 cm Tia Joerer MACHINE HAMPER MAKER-C Work Phone: [facility] 02-26-2025 12:37-0400 Body mass index (BMI) [Ratio] 53.1 kg/m2 Tia Osorioerer MACHINE HAMPER MAKER-C Work Phone: [facility] 02-26-2025 12:37-0400 Body weight 149.5 kg Tia Osorioerer MACHINE HAMPER MAKER-C Work Phone: [facility] 02-03-2025 18:08-0400 Body temperature 98.5 [degF] VANESA SOLANO MD Work Phone: [facility] 02-03-2025 18:08-0400 Body weight 147.42 kg VANESA SOLANO MD Work Phone: [facility] 02-03-2025 18:08-0400 Diastolic blood pressure 94 mm[Hg] VANESA SOLANO MD Work Phone: [facility] 02-03-2025 18:08-0400 Heart rate 77 /min VANESA SOLANO MD Work Phone: [facility] 02-03-2025 18:08-0400 Respiratory rate 16 /min VANESA SOLANO MD Work Phone: [facility] 02-03-2025 18:08-0400 SaO2% (BldA) [Mass fraction] 98 % VANESA SOLANO MD Work Phone: [facility] 02-03-2025 18:08-0400 Systolic blood pressure 171 mm[Hg] VANESA SOLANO MD Work Phone: [facility] 12-13-2024 20:00-0400 Heart rate 98 /min ARAM JORDAN MD Work Phone: [facility] 12-13-2024 20:00-0400 SaO2% (BldA) [Mass fraction] 97 % ARAM JORDAN MD Work Phone: [facility] 12-13-2024 19:56-0400 Diastolic blood pressure 87 mm[Hg] ARAM JORDAN MD Work Phone: [facility] 12-13-2024 19:56-0400 Systolic blood pressure 135 mm[Hg] ARAM JORDAN MD Work Phone: [facility] 12-13-2024 16:16-0400 Body temperature 98.9 [degF] ARAM JORDAN MD Work Phone: [facility] 12-13-2024 16:16-0400 Body weight 144.24 kg ARAM JORDAN MD Work Phone: [facility] 12-13-2024 16:16-0400 Respiratory rate 16 /min ARAM JORDAN MD Work Phone: [facility] 08-29-2023 15:35-0500 Body height 167.6 cm Elena Xie MD Work Phone: [facility] 08-29-2023 15:35-0500 Body weight 143.34 kg Elena Xie MD Work Phone: [facility] 08-09-2023 10:27-0500 Body height 167.6 cm Tiffanie Schmidt APRN.CNP Work Phone: [facility] 08-09-2023 10:27-0500 Body weight 143.34 kg Tiffanie Schmidt APRN.WOOD INSPECTOR Work Phone: [facility] 08-09-2023 10:27-0500 Diastolic blood pressure 98 mm[Hg] Tiffanie Schmidt APRN.WOOD INSPECTOR Work Phone: [facility] 08-09-2023 10:27-0500 Systolic blood pressure 128 mm[Hg] Tiffanie Schmidt APRN.WOOD INSPECTOR Work Phone: [facility] 06-28-2023 12:30-0400 Body temperature 97.81 [degF] Yanet Carolina MD Work Phone: [facility] 06-28-2023 12:30-0400 Diastolic blood pressure 60 mm[Hg] Yanet Carolina MD Work Phone: [facility] 06-28-2023 12:30-0400 Heart rate 97 /min Yanet Carolina MD Work Phone: [facility] 06-28-2023 12:30-0400 Respiratory rate 15 /min Yanet Carolina MD Work Phone: [facility] 06-28-2023 12:30-0400 SaO2% (BldA) [Mass fraction] 97 % Yanet Carolina MD Work Phone: [facility] 06-28-2023 12:30-0400 Systolic blood pressure 135 mm[Hg] Yanet Carolina MD Work Phone: [facility] 06-28-2023 07:14-0400 Body height 167.6 cm Yanet Carolina MD Work Phone: [facility] 06-28-2023 07:14-0400 Body mass index (BMI) [Ratio] 50.36 kg/m2 Yanet Carolina MD Work Phone: [facility] 06-28-2023 07:14-0400 Body weight 141.52 kg Yanet Carolina MD Work Phone: 8(325)271-625860 [place] [address] 05-27-2023 11:32-0400 Body height 171.5 cm Miah Gamas PAC Work Phone: 3(813)513-919300 [place] [address] 05-27-2023 11:32-0400 Body mass index (BMI) [Ratio] 48.39 kg/m2 Miah Octoshapes PAC Work Phone: 9(243)169-384900 [place] [address] 05-27-2023 11:32-0400 Body weight 142.25 kg Miah Octoshapes PAC Work Phone: 1(440)624-214300 [place] [address] 05-27-2023 11:32-0400 Diastolic blood pressure 107 mm[Hg] Miah Octoshapes PAC Work Phone: 5(920)[phone] [place] [address] Comment on above: forgot BP meds/had caffine 05-27-2023 11:32-0400 Heart rate 75 /min Miah Octoshapes PAC Work Phone: 0(912)032-543100 [place] [address] 05-27-2023 11:32-0400 SaO2% (BldA) [Mass fraction] 98 % Miah Octoshapes PAC Work Phone: 4(418)[phone] [place] [address] 05-27-2023 11:32-0400 Systolic blood pressure 143 mm[Hg] Miah Octoshapes PAC Work Phone: 3(509)795-568200 [place] [address] Comment on above: forgot BP meds/had caffine 05-09-2023 13:13-0400 Body height 167.6 cm Yanet Carolina MD Work Phone: 4(353)[phone] [place] [address] 05-09-2023 13:13-0400 Body mass index (BMI) [Ratio] 47.29 kg/m2 Yanet Carolina MD Work Phone: 4(122)066-500000 [place] [address] 05-09-2023 13:13-0400 Body weight 132.9 kg Yanet Carolina MD Work Phone: 5(465)495-60[address] [place] [address] 10-28-2022 11:15-0500 Body height 167.6 cm [facility] 10-28-2022 11:15-0500 Body weight 136.08 kg [facility] 03-22-2022 12:13-0400 Diastolic blood pressure 117 mm[Hg] Dr. Britni Bell Work Phone: [facility] Work Phone: 03-22-2022 12:13-0400 Heart rate 85 /min Dr. Britni Bell Work Phone: [facility] Work Phone: 03-22-2022 12:13-0400 Respiratory rate 15 /min Dr. Britni Bell Work Phone: [facility] Work Phone: 03-22-2022 12:13-0400 SaO2% (BldA) [Mass fraction] 98 % Dr. Britni Bell Work Phone: [facility] Work Phone: 03-22-2022 12:13-0400 Systolic blood pressure 154 mm[Hg] Dr. Britni Bell Work Phone: [facility] Work Phone: 03-22-2022 11:25-0400 Body height 167.[address] Britni Bell Work Phone: [facility] Work Phone: 03-22-2022 11:25-0400 Body mass index (BMI) [Ratio] 46.7 kg/m2 Dr. Britni Bell Work Phone: [facility] Work Phone: 03-22-2022 11:25-0400 Body temperature 97.9 [degF] Dr. Britni Bell Work Phone: [facility] Work Phone: 03-22-2022 11:25-0400 Body weight 131.[address] Britni Bell Work Phone: [facility] Work Phone: 12-29-2021 14:01-0400 Body height 165.1 cm Helen Ferrer GLASS TUBE BENDER.WOOD INSPECTOR Work Phone: [facility] 12-29-2021 14:01-0400 Body weight 139.25 kg Helen Ferrer GLASS TUBE BENDER.WOOD INSPECTOR Work Phone: [facility] 12-29-2021 14:01-0400 Diastolic blood pressure 84 mm[Hg] Helen Ferrer GLASS TUBE BENDER.WOOD INSPECTOR Work Phone: [facility] 12-29-2021 14:01-0400 Heart rate 94 /min Helen Ferrer GLASS TUBE BENDER.WOOD INSPECTOR Work Phone: [facility] 12-29-2021 14:01-0400 SaO2% (BldA) [Mass fraction] 98 % Helen Ferrer GLASS TUBE BENDER.WOOD INSPECTOR Work Phone: [facility] 12-29-2021 14:01-0400 Systolic blood pressure 128 mm[Hg] Helen Ferrer GLASS TUBE BENDER.WOOD INSPECTOR Work Phone: [facility] 11-26-2021 09:05-0500 Body mass index (BMI) [Ratio] 48.9 kg/m2 Dr. Britni Bell Work Phone: [facility] Work Phone: 11-26-2021 09:05-0500 Body temperature 101.3 [degF] Dr. Britni Bell Work Phone: [facility] Work Phone: 11-26-2021 09:05-0500 Body weight 137.[address] Britni Bell Work Phone: [facility] Work Phone: 11-26-2021 09:05-0500 Diastolic blood pressure 92 mm[Hg] Dr. Britni Bell Work Phone: [facility] Work Phone: 11-26-2021 09:05-0500 Heart rate 73 /min Dr. Britni Bell Work Phone: [facility] Work Phone: 11-26-2021 09:05-0500 Respiratory rate 16 /min Dr. Britni Bell Work Phone: [facility] Work Phone: 11-26-2021 09:05-0500 SaO2% (BldA) [Mass fraction] 98 % Dr. Britni Bell Work Phone: [facility] Work Phone: 11-26-2021 09:05-0500 Systolic blood pressure 132 mm[Hg] Dr. Britni Bell Work Phone: [facility] Work Phone: Encounters Encounter Date Encounter Type Care Provider Facility Start: 03-23-2025 ambulatory Tia Joerer Facilit y:[facility] Start: 03-22-2025 End: 03-22-2025 ambulatory Tia Ungerer Facility:[facility] Start: 03-22-2025 End: 03-22-2025 Patient encounter procedure Jocelyn Gunn MACHINE HAMPER MAKER-C -[facility] Work Phone: Start: 03-15-2025 End: 03-15-2025 Patient encounter procedure Tia Núñez MACHINE HAMPER MAKER-C -[facility] Work Phone: Start: 03-15-2025 End: 03-15-2025 ambulatory Tia Joerer MACHINE HAMPER MAKER-C Work Phone: [facility] Work Phone: Start: 03-11-2025 ambulatory TIA HEREDIAR [facility] Start: 03-11-2025 End: 03-13-2025 ambulatory MOI SKY [facility] Start: 03-08-2025 End: 03-08-2025 Patient encounter procedure Tia Núñez MACHINE HAMPER MAKER-C -[facility] Work Phone: Start: 03-08-2025 End: 03-08-2025 ambulatory Tia Fidel MACHINE HAMPER MAKER-C Work Phone: [facility] Work Phone: Start: 02-26-2025 End: 02-26-2025 Emergency department patient visit Tia Núñez MACHINE HAMPER MAKER-C Work Phone: -Emergency Department Work Phone: Start: 02-17-2025 End: 02-17-2025 Emergency department patient visit LUIS ANTONIO [facility] Start: 02-15-2025 End: 02-15-2025 ambulatory SYLVIA WHITTAKER Facility: Start: 02-03-2025 End: 02-03-2025 ambulatory MARY VAZQUEZ Facility: Start: 02-03-2025 End: 02-03-2025 Emergency department patient visit VANESA SOLANO MD Work Phone: [place] [facility] Start: 01-01-2025 End: 01-01-2025 [facility] Start: 12-20-2024 End: 12-20-2024 Emergency department patient visit LUIS ANTONIO [facility] Start: 12-13-2024 End: 12-13-2024 Emergency department patient visit ARAM JORDAN MD Work Phone: [facility] Start: 11-27-2024 End: 11-27-2024 [facility] Start: 11-19-2024 End: 11-20-2024 Emergency department patient visit MIKO PERERA [facility] Start: 11-06-2024 End: 11-06-2024 Emergency department patient [facility] Start: 07-30-2024 End: 07-30-2024 Emergency department patient visit Tia Núñez Facility:[facility] Start: 06-28-2024 End: 06-28-2024 ambulatory RAYMOND FAROOQ [facility] Start: 06-20-2024 End: 06-20-2024 Emergency department patient visit [facility] Start: 06-17-2024 End: 06-17-2024 Emergency department patient visit TIA SPEAR [facility] Start: 05-16-2024 End: 05-16-2024 Emergency department patient visit NEVA [facility] Start: 04-13-2024 End: 04-13-2024 ambulatory TIA SPEAR [facility] Start: 08-29-2023 End: 08-29-2023 ambulatory Elena Xie MD Work Phone: General Surgery Comment on above: Morbid obesity (HCC) (Primary Dx); Primary hypertension; History of gastroesophageal reflux (GERD) Start: 08-29-2023 End: 08-29-2023 Telemedicine consultation with patient Elena Xie MD Work Phone: [facility] Start: 08-09-2023 End: 08-09-2023 ambulatory TIFFANIE SCHMIDT Facility:[facility] Start: 08-09-2023 End: 08-09-2023 Patient encounter procedure Tiffanie Schmidt APRN.WOOD INSPECTOR Work Phone: OB/Gynecology Comment on above: Encounter for gyneco logical examination (general) (routine) without abnormal findings (Primary Dx); History of ovarian cyst; Class 3 severe obesity with serious comorbidity and body mass index (BMI) of 50.0 to 59.9 in adult, unspecified obesity type (HCC); Screening for cervical cancer; Essential hypertension Start: 08-09-2023 End: 08-09-2023 Patient encounter status Tiffanie Schmidt APRN.WOOD INSPECTOR Work Phone: [facility] Work Phone: Start: 07-18-2023 End: 07-18-2023 ambulatory TIA NÚÑEZ Facility:[facility] Start: 07-13-2023 ambulatory SONU GRIFFIN Facility:[facility] Start: 07-13-2023 End: 07-13-2023 Postop follow up visit related to original px Sonu Bingham Cecilekathyrene PAC Work Phone: [facility] Comment on above: Right hip impingemen t syndrome (Primary Dx); S/P hip arthroscopy Start: 06-30-2023 Telephone encounter Yanet dozier MD Work Phone: [facility] Comment on above: Surgical Follow-up ( /) Start: 06-29-2023 Telephone encounter Yanet dozier MD Work Phone: Central Scheduling Comment on above: Advice Only Start: 06-28-2023 End: 06-28-2023 ambulatory YANET CAROLINA Facility:[facility] Start: 06-28-2023 End: 06-28-2023 Subsequent hospital visit by physician Yanet Carolina MD Work Phone: [facility] Comment on above: Right hip impingemen t syndrome Start: 06-15-2023 ambulatory TIA UNGERER Facilit y:[facility] Start: 06-15-2023 End: 06-15-2023 Subsequent hospital visit by physician Yanet Carolina MD Work Phone: [facility] Comment on above: Arrived Start: 06-14-2023 Telephone encounter Tiffanie saldana APRN.WOOD INSPECTOR Work Phone: OB/Gynecology Comment on above: Pelvic Pain Start: 05-27-2023 ambulatory TIA UNGERER Facilit y:[facility] Start: 05-27-2023 End: 05-27-2023 Patient encounter procedure Miah Centeno PAC Work Phone: [facility] Comment on above: Right hip impingemen t syndrome (Primary Dx) Start: 05-16-2023 ambulatory TIA UNGERER Facilit y:[facility] Start: 05-16-2023 Encounter for other preprocedural examination TIA UNGERER Facility:[facility] Start: 05-09-2023 ambulatory TIA UNGERER Facilit y:[facility] Start: 05-09-2023 End: 08-07-2023 Office outpatient new 45 minutes Yanet Carolina MD Work Phone: [facility] Comment on above: Right hip impingemen t syndrome (Primary Dx) Start: 03-31-2023 ambulatory YANET CAROLINA Facility:[facility] Start: 12-01-2022 Telephone encounter Tony manzano RN Work Phone: [facility] Comment on above: Preparations For Surinder arely Chief Deputy - O ther Start: 11-03-2022 Telephone encounter Tony manzano RN Work Phone: [facility] Comment on above: Chief Deputy - O ther; Schedule Surgery Start: 10-28-2022 End: 10-28-2022 Admission to [facility] Start: 10-28-2022 End: 10-28-2022 [facility]est[facility] Comment on above: Pre-op evaluation (P rimary Dx); Class 3 severe obesity with body mass index (BMI) of 45.0 to 49.9 in adult, unspecified obesity type, unspecified whether serious comorbidity present (HCC); Asthma, unspecified asthma severity, unspecified whether complicated, unspecified whether persistent; Anxiety; Gastroesophageal reflux disease, unspecified whether esophagitis present Start: 10-28-2022 End: 10-28-2022 Preprocedural examination done [facility] Pre Anesthesia Start: 10-18-2022 ambulatory Raymond bailey MD Work Phone: [facility] Comment on above: Paperwork Start: 10-14-2022 ambulatory Tony johnston RN Work Phone: Orthopaedics Start: 10-14-2022 Telephone encounter Tony manzano RN Work Phone: Orthopaedics Comment on above: Chief Deputy - O ther; Schedule Surgery; Preparations For Surgery Start: 07-05-2022 Telephone encounter Markos Overton MD Work Phone: [facility] Comment on above: New Patient Start: 06-25-2022 Orders Only Salbador Demarco O Work Phone: [facility] Comment on above: Acetabular labrum te ar, right, subsequent encounter (Primary Dx) Start: 06-23-2022 Telephone encounter Tony Ron RN [facility] Comment on above: Chief Deputy - O ther; Schedule Surgery Start: 06-18-2022 End: 06-18-2022 ambulatory RAYMOND BRAMBILA Facility:[facility] Start: 06-18-2022 End: 06-18-2022 Patient encounter procedure Raymond Brambila MD Work Phone: [facility] Comment on above: Tear of right acetab ular labrum, initial encounter (Primary Dx) Start: 06-04-2022 End: 06-04-2022 Patient encounter procedure Tiffanie Schmidt APRN.CNP Work Phone: OB/Gynecology Comment on above: IUD check up (Primar y Dx); Vaginal discharge Start: 06-04-2022 Telephone encounter Salbador rosas DO Work Phone: Orthopaedics Comment on above: Results Start: 06-03-2022 End: 06-03-2022 Subsequent hospital visit by physician Mri [facility] (I-Stat/1.5t) Work Phone: Radiology Comment on above: Pain in hip [M25.559 ] Start: 04-15-2022 End: 04-15-2022 ambulatory Tiffanie Schmidt APRN.CNP Work Phone: OB/Gynecology Comment on above: Cyst of right ovary (Primary Dx); Pain due to intrauterine contraceptive device (IUD), initial encounter (HCC); Vaginal discharge Start: 04-15-2022 End: 04-15-2022 Telemedicine consultation with patient Tiffanie Schmidt APRN.CNP Work Phone: [facility] Start: 03-26-2022 End: 03-26-2022 Patient encounter procedure Salbador Cohen DO Work Phone: [facility] [place] Comment on above: Hip impingement synd viry, right (Primary Dx) Start: 03-22-2022 End: 03-22-2022 Emergency department patient visit Dr. Britni Bell Work Phone: [facility]-Emergency Department Start: 12-29-2021 End: 12-29-2021 Patient encounter procedure Helen Ferrer APRN.CNP Work Phone: Gastroenterology Comment on above: Generalized abdomina l pain Start: 11-26-2021 End: 11-26-[address] Britni Bell Work Phone: [facility]-Laboratory, Specimen Start: 10-07-2017 End: 10-07-2017 Ambulatory ALESIA WALKER Facility:[facility] Procedures Date Procedure Procedure Detail Performing Clinician Start: 02-26-2025 Computed tomography of abdomen and pelvis with intravenous contrast Tia Glori Energyrojelio MACHINE HAMPER MAKER-C Work Phone: Start: 02-26-2025 Urnls dip stick/tabl et reagent auto microscopy Tia Glori Energyerer MACHINE HAMPER MAKER-C Work Phone: Start: 02-26-2025 Estimated creatinine clearance We Tributegavinr MACHINE HAMPER MAKER-C Work Phone: Start: 02-17-2025 Urinalysis LUIS ANTONIO REEVES Comment on above: Result Comment: URIN ALYSIS Performed By: [id number] ####[facility],[address] [place] [address] Start: 02-03-2025 Computed tomography of abdomen and pelvis with contrast VANESA SOLANO MD Work Phone: Start: 12-20-2024 Urinalysis LUIS ANTONIO REEVES Comment on above: Result Comment: URIN ALYSIS Performed By: [id number] ####[facility],[address] [place] [address] Start: 12-13-2024 CT of abdomen and pe lvis without contrast ARAM JORDAN MD Work Phone: Start: 05-16-2024 Urinalysis LUIS ANTONIO REEVES Comment on above: Result Comment: URIN ALYSIS Performed By: [id number] ####[facility],[address] [place] [address] Start: 06-28-2023 US Unspecified body region during surgery Raymond Archer MD Work Phone: Start: 06-28-2023 Urine test visual color cmprsn meths Miah J Valus PAC Work Phone: Start: 06-03-2022 Mri any jt lower ext rem w/o contrast matrl Salbador Cohen DO Work Phone: Start: 03-22-2022 Plain x-ray of pelvi s and lower extremity Dr. Britni Bell Work Phone: History of tonsillectomy History of tonsillectomy Dr. Britni Bell Work Phone: Investigation of transfusion reaction Dr. Britni Bell Work Phone: Respiratory microbia l culture Dr. Britni Bell Work Phone: Plan of Treatment Date Care Activity Detail Author Start: 08-09-2026 Pap Testing Pap Testing [facility] Start: 03-08-[address] [facility] Work Phone: Start: 02-26-2025 [facility] Start: 02-03-2025 Urine culture [facility] Start: 12-13-2024 Troponin I.cardiac panel - Serum or Plasma by High sensitivity method [facility] Start: 08-08-2023 End: 08-08-2023 Patient encounter procedure 08/08/2023 1:45 PM EST Office Visit [facility] [address] [place] [address] Yanet Carolina MD [address] [place] [address] [facility] Start: 07-13-2023 End: 07-13-2023 Patient encounter procedure [facility] Start: 06-28-2023 End: 06-28-2023 Admission to same day surgery center 06/28/2023 9:10 AM EDT - 06/28/2023 12:00 PM EDT [facility] [address] [place] [address] Yanet Carolina MD [address] [place] [phone] ARTHROSCOPY HIP W/ FEMOROPLASTY [facility] Comment on above: ARTHROSCOPY HIP W/ FEMOROPLASTY Start: 06-28-2023 End: 06-28-2023 Arthroscopy hip w/femoroplasty [facility] Start: 06-28-2023 End: 06-28-2023 Arthroscopy hip w/labral repair [facility] Start: 06-28-2023 Subsequent hospital visit by physician 06/28/2023 7:15 AM EDT Hospital Encounter [facility] [address] [place] [phone] Yanet Carolina MD [address] [place] [id number] Right hip impingement syndrome [facility] Comment on above: Right hip impingement syndrome Start: 06-15-2023 End: 06-15-2023 Patient encounter procedure 06/15/2023 9:00 AM EDT Appointment [facility] [address] [place] [address] Yanet Carolina MD [address] [place] [id number] [facility] Start: 06-03-2023 Influenza vaccination INFLUENZA VACCINE (#1) [facility] Start: 05-09-2023 End: 05-09-2024 CT Hip - right WO contrast CT HIP RIGHT WITHOUT CONTRAST WITH 3D FOR SURGICAL PLANNING Imaging Routine Right hip impingement syndrome Expected: 05/09/2023, Expires: 05/09/2024 [facility] Comment on above: Expected: 05/09/2023, Expires: Start: 10-03-2022 DEPRESSION ASSESSMENT DEPRESSION ASSESSMENT [facility] Start: 06-03-2022 Influenza vaccination [facility] Start: 10-03-2021 DEPRESSION ASSESSMENT DEPRESSION ASSESSMENT [facility] Start: 2015 PAP TESTING PAP TESTING [facility] Start: 2015 Screening for malignant neoplasm of cervix CERVICAL CANCER SCREENING DISCUSSION [facility] Start: 2013 Third diphtheria, tetanus and acellular pertussis (DTaP) vaccination TDAP (ADULT) [facility] Start: 2013 Urine microalbumin profile [facility] Start: 01-07-2012 ANNUAL PCP TEAM CHRONIC DISEASE VISIT ANNUAL PCP TEAM CHRONIC DISEASE VISIT [facility] Start: 01-07-2012 BP Controlled (<130/80) BP Controlled (<130/80) [facility] Start: 01-07-2012 HEPATITIS C SCREENING HEPATITIS C SCREENING [facility] Start: 01-07-2012 HIV SCREENING HIV SCREENING [facility] Start: 01-07-2012 SPIROMETRY SPIROMETRY [facility] Start: 2009 HIV screening HIV SCREENING DISCUSSION [facility] Start: 2006 Adult depression screening assessment DEPRESSION SCREENING [facility] Start: 01-07-2000 PNEUMOCOCCAL (1 - PCV) PNEUMOCOCCAL (1 - PCV) [facility] Start: 01-07-2000 Pneumococcal vaccination Pneumococcal Vaccine (1 - PCV) [facility] Start: 1999 COVID-19 VACCINE (#1) COVID-19 VACCINE (#1) [facility] Start: 1999 COVID-19 VACCINE (1) COVID-19 VACCINE (1) [facility] Start: 1994 COVID-19 VACCINE (#1) COVID-19 VACCINE (#1) [facility] Start: 1994 HEPATITIS B (1 of 3 - 3-dose series) HEPATITIS B (1 of 3 - 3-dose series) [facility] Start: 1994 Hepatitis B Vaccine (1 of 3 - 3-dose series) Hepatitis B Vaccine (1 of 3 - 3-dose series) [facility] Start: 1994 Hepatitis C screening HEPATITIS C VIRUS SCREENING [facility] Start: 1994 Tetanus vaccination TETANUS [facility] Arthroscopy hip w/femoroplasty ARTHROSCOPY HIP W/ FEMOROPLASTY Right hip impingement syndrome [facility] Arthroscopy hip w/labral repair ARTHROSCOPY HIP W/ LABRAL REPAIR Right hip impingement syndrome [facility] C reactive protein [Mass/volume] in Serum or Plasma [facility] Celiac disease screen [facility] CT Abdomen [facility] End: 06-15-2023 CT Hip - right WO contrast [facility] Comment on above: 1 Occurrences starting 06/15/2023 until 06/15/2023 Elastase.pancreatic [Presence] in Stool [facility] Immunoglobulin measurement [facility] Microscopic observat ion [Identifier] in Vaginal fluid by Gram stain BACT/PIA VAG GRAM STAIN Microbiology Routine Vaginal discharge 06/04/2022 2:47 PM EDT [facility] Work Phone: PAP TEST PAP TEST Lab [facility] giovanna Encounter for gynecological examination (general) (routine) without abnormal findings Screening for cervical cancer 08/09/2023 11:53 AM EST [facility] Work Phone: Patient Education [facility] Work Phone: Patient referral [facility] Work Phone: Protein measurement [facility] End: 06-28-2023 RF Greater than 1 hour [facility] Comment on above: One Time for 1 Occurrences starting 06/04 until 06/28/2023 US Kidney - bilatera l and Urinary bladder [facility] End: 07-16-2024 Us transvaginal US FEMALE PELVIS TRANSVAG Radiology Routine LLQ pain IUD (intrauterine device) in place 1 Occurrences starting 06/17/2023 until 07/16/2024 [facility] Work Phone: Comment on above: 1 Occurrences starting 06/17/2023 until 07/16/2024 End: 07-18-2023 XR HIP GENERAL 3V PELV/AP/LAT RIGHT XR HIP GENERAL 3V PELV/AP/LAT RIGHT Radiology Routine Tear of right acetabular labrum, initial encounter 1 Occurrences starting 06/18/2022 until 07/18/2023 [facility] Work Phone: Comment on above: 1 Occurrences starting 06/18/2022 until 07/18/2023 [facility] Payers Date Payer Category Payer Self-pay [id number] 2023 Unknown [employer] OUR [id number] 2023-Present [address] [place] [address] [id number] 2022 Unknown [id number] 2015 Medicaid [employer] [id number] 2015-Present [phone] [address] [place] [address] Medicaid [id number]. [id number] 2015 Medicaid [id number]. 1.13.159.2.7.3. [id number] 2015 Unknown [id number] 1994 Unknown [id number] 2.1.494345.3.579.2.594 1994 Unknown [id number] 2.1.805164.3.579.2.594 1994 Unknown [id number] 2.840.1.051432.3.579.2.594 1994 Unknown [id number] 2.0.1.948932.3.579.2.594 1994 Unknown [id number] 20.1.261299.3.579.2.594 1994 Unknown [id number] 2840.1.004105.3.579.2.594 1994 Unknown [id number] 2.16.840.1.315392.3.579.2.594 1994 Unknown [id number] 2.16.840.1.270577.3.579.2.594 1994 Unknown [id number] 2.16.840.1.685382.3.579.2.651 1994 Unknown [id number] 2.16.840.1.825683.3.579.2.651 1994 Unknown [id number] 2.16.840.1.788574.3.579.2.651 1994 Unknown [id number] 2.16.840.1.193901.3.579.2.651 1994 Unknown [id number] 2.16840.1.028446.3.579.2.651 1994 Unknown [id number] 2.16840.1.424038.3.579.2.651 1994 Unknown [id number] 2.16.840.1.774220.3.579.2.651 1994 Unknown [id number] 2.16.840.1.968742.3.579.2.651 1994 Unknown [id number] 2.16.840.1.785575.3.579.2.651 1994 Unknown [id number] 2.16840.1.701613.3.579.2.651 1994 Unknown [id number] 2.16.840.1.119840.3.579.2.651 Medicaid SELF PAY INSURANCE [id number] Unknown [id number] Unknown [id number] 2.16.840.1.490674.3.579.2.528 Unknown [id number] 2.16840.1.068225.3.579.2.528 Unknown [id number] 2.16.840.1.618991.3.579.2.528 Unknown [id number] 2.16.840.1.264574.3.579.2.462 Unknown [id number] 2.16.840.1.381566.3.579.2.462 Unknown [id number] 2.16.840.1.844470.3.579.2.462 Unknown [id number] 2.16.840.1.804154.3.579.2.462 Unknown [id number] 2.16.840.1.754169.3.579.2.462 Unknown [id number] 2.16.840.1.354833.3.579.2.462 Social History Date Type Detail Facility Start: 05-25-2011 End: 03-22-2025 Tobacco smoking status NHIS Never smoked tobacco [facility] Work Phone: Start: 12-29-2021 End: 06-18-2022 Alcohol intake Lifetime non-drinker (finding) [facility] Start: 10-29-2021 History SDOH Alcohol Frequency 1 [facility] Start: 1995 Sex Assigned At Not on file [facility] Start: 12-13-2021 End: 06-18-2022 Exposure to SARS-CoV-2 (event) Not sure [facility] Start: 03-22-2022 Tobacco smoking stat us MOIS Unknown if ever smoked [facility] Work Phone: Start: 02-09-2021 Non-smoker [facility] Start: 1995 Sex Assigned At Female C [facility] Start: 05-25-2011 End: 06-18-2022 Tobacco use and exposure Smokeless tobacco non-user [facility] Start: 10-28-2022 End: 08-09-2023 Alcohol intake Ex-drinker (finding) [facility] Start: 05-27-2023 End: 08-09-2023 Gender identity Not on file [facility] Start: 05-27-2023 End: 08-09-2023 History of Social function [facility] National Score (1-10 0), lower number is lower risk 86 [facility] Start: 12-13-2024 Never Never [facility] Start: 12-13-2024 No No [facility] Start: 12-13-2024 End: 02-03-2025 Sex Female (finding) [facility] Sexual Orientation Heterosexual (finding) [facility] Work Phone: Medical Equipment Procedure Code Equipment Code Equipment Origin al Text Equipment Identifier Dates Suture [place] 1.4mm Buckle Wire Inserter [place] - [id number] Start: 06-28-2023 Mental Status Date Assessment Result Facility 02-03-2025 Cognitive function Level Of Cons ciousness Awake;Alert;Appropriate;Follow s Commands [facility] Work Phone: 12-13-2024 Cognitive function Level Of Cons ciousness Awake;Alert;Appropriate;Follow s Commands [facility] Work Phone: Clinical Notes 12-29-2021 to 03-08-2025 Note Date & Type Note Facility 03-08-2025 Evaluation note Diagnosis Onset Date Resolution Anxiety acute March 08, 2025 2:45pm Colitis acute March 08, 2025 2:45pm Depression acute March 08, 2025 2:45pm Ovarian cyst acute March 08 2:45pm PCOS (polycystic ovarian syndrome) acute March 08, 2025 2:45pm Asthma chronic March 08, 2025 2:45pm Hypertension chronic March 08 2:45pm [facility] Work Phone: 1(957) 792-237406-06-2025 Evaluation note* Diagnosis Onset Date Resolution Status Admit Date Anxiety acute March 08, 2025 2:45pm Colitis acute March 08, 2025 2:45pm Depression acute March 08, 2025 2:45pm Ovarian cyst acute March 08 2:45pm PCOS (polycystic ovarian syndrome) acute March 08, 2025 2 :45pm Asthma chronic March 08, 2025 2:45pm Hypertension chronic March 08 2:45pm Acute right flank pain acute Ju ne 2024 1:44pm Hematuria acute March 15 1:44pm Lower respiratory infection acute March 15, 2025 1:44pm Abdominal pain acute March 22, 2025 2:34pm Diarrhea acute March 22 2:34pm Nausea acute March 22 2:34pm GERD (gastroesophageal reflu x disease) chronic March 22, 2025 2:34pm [facility] Work Phone: 1(787) 739-248105-27-2025 Discharge summary [facility] Medical Records Department [address] [place] [address] Emergency Department Summary 02/26/25 MR#: [id number] Acct: [id number] Name: JESSICA ACUNA Rep #:[id number] : 1995 30 From: Nino Sánchez DO PCP: JUDD Bernard Status:REG ER Location: ED HPI History of Present Illness Chief Complaint: Abd Pain Narrative Narrative: Patient is a 30-year-old female with past medical history of GERD, LUCY, asthma who presents to the emerged part with chief complaint of abdominal pain diarrheaand vomiting. She states that her symptoms started earlier today. Patient denies recent contacts. She rates her pain a 7 out of 10 in the right lower portion of her abdomen. Patient denies any history kidney stones. Patient states that she has had her gallbladder out and is passing gas. [facility] Medical History Non-smoker COVID-19 affecting childbirth GERD (gastroesophageal reflux disease) Leukocytosis Environmental allergies Allergic rhinitis LUCY (obstructive sleep apnea) Home Medications ?Medication ?Instructions ?Recorded ?Last Taken ?Type levonorgestrel (Mirena) 1 insert intrauterine ONCE 0 11/26/21 Unknown History albuterol sulfate 2.5 mg/3 mL 2.5 mg (3 mL) inhalation Q4H PRN 12/21/22 Unknown Rx (0.083 %) solution for nebulization shortness of breat h or wheezing #180 mL albuterol sulfate 90 mcg/actuation 1 puff inhalation Q 6H #8.5 grams 12/21/22 Unknown Rx aerosol inhaler (Ventolin HFA) Nebulizer machine #1 ea 06/18/24 Unknown Rx fluticasone furoate 200 1 inh inhalation DAILY #60 e a 11/28/24 Unknown Rx mcg-vilanterol 25 mcg/dose inhalation powder (Breo Ellipta) dicyclomine 20 mg tablet 20 mg PO TID #30 tabs Unknown Rx duloxetine 60 mg capsule,delayed 60 mg PO DAILY Unknown History release losartan 50 mg-hydrochlorothiazide 1 tab PO DAILY 02/01 04/26 Unknown History 12.5 mg tablet ondansetron 4 mg disintegrating 4 mg PO Q6H PRN nausea and 02/26/25 Unknown Rx tablet vomiting #20 tabs Allergy/AdvReac Type Severity Reaction Status Date / Time Penicillins Allergy rash Verified 02/26/25 12:39 Family History Father CVA (cerebral vascular accident) Mother Intrinsic asthma Grandfather Diabetes COPD (chronic obstructive pulmonary disease) Surgical History S/P cholecystectomy History of tonsillectomy History of foot surgery Social History Smoking Status: Never smoker alcohol intake: never substance use type: does not use caffeine: Yes what type of physical activity do you participate in: none seatbelt use: always do you feel safe at home: Yes ROS ROS ED ROS Narrative Constitutional: Complains of fever at home of 100.1 denies lightheadedness or dizziness Cardiovascular: Denies chest pain Respiratory: Denies coughing denies any sputum production Abdomen: Complains of abdominal pain nausea vomiting diarrhea as noted above : Denies urinary symptoms Neurological: Denies any numbness, weakness, tingling Musculoskeletal: complains of some right flank pain Skin: Denies any rashes or lesions EXAM Physical Exam Narrative Exam Narrative: General: Patient lying in bed rest comfortably did not appear to be acute distress Head: Atraumatic, normocephalic Eyes: PERRL bilaterally, EOMI bilaterally, no conjunctival injection noted Neck: Soft, supple, trachea midline Cardiovascular: Regular rate and rhythm Respiratory: Clear to auscultation bilaterally Abdomen: Soft, nondistended, mild tenderness palpation the right lower quadrant no rebound or guarding on exam Extremities: +5/5 strength noted in the bilateral upper and lower extremities, radial pulses +2/4 in the bilateral extremities Neurological: Patient following commands knew that she was at [facility] year is 2024 Skin: Warm, dry, intact no rashes or lesions noted Const Vital Signs: 02/26/25 12:37 02/26/25 14:42 Temperature 98.3 F Temperature Source Oral Pulse Rate 83 Respiratory Rate 82 H 16 Blood Pressure 140/122 H 147/112 H Blood Pressure Mean 128 123 Pulse Ox 100 100 Oxygen Delivery Method Room Air Room Air MDM MDM MDM Narrative Medical decision making narrative: Patient is a 30-year-old female who presented to the emerged part with chief complaint of abdominalpain. On the differential diagnosis includes but not limited to UTI, pyelonephritis, appendicitis, bowel obstruction, viral gastroenteritis. Once workup is obtained reviewed she will be reevaluated. P atient be given IV fluids and Bentyl. Patient's CBC was reviewed showed no evidence leukocytosis white blood count wasnoted to be 9.4, hemoglobin 16.1, platelet count was noted to be 286. Patient sodium was notably 136, potassium was noted to be 4, creatinine was 0.67. Patient's AST and ALT were 16 and 21 respectively with a normal total bilirubin of 0.32. Patient lipase normal at 33, test negative. Patient urinalysis reviewed showed negative nitrites negative leukocyte esterase no concern for infection. Patient CT abdomen pelvis with IV contrast was reviewed showed status postcholecystectomy. 4 cm x 4.2 cm right ovarian cyst. IUD seen within the uterus. On reevaluation patient is feeling better would like to go home at this point time. Patient be given Bentyl and Zofran. She likely has viral gastroenteritisthat is causing her symptoms. I discussed this with her and encouraged her to continue supportive care with hydration and starting with a blanddiet and advance as tolerated. She was encouraged to follow-up with her primary care physician outpatient and return with worsening symptoms or concerns. She is agreeable this plan all question concerns answered she was discharged home in stable condition. Patient significant other at bedside is als o agreeable this plan. He Lab Data Labs: Laboratory Results - last 24 hr 02/26/25 02/26/25 14:00 14:02 WBC 9.4 RBC 5.52 H Hgb 16.1 H Hct 46.6 MCV 84.4 MCH 29.2 MCHC 34.5 RDW Std Deviation 37.8 RDW Coeff of [place] 12.3 Plt Count 286 MPV 10.2 Immature Gran % (Auto) 0.200 Neut % (Auto) 71.4 H Lymph % (Auto) 18.8 L [place] % (Auto) 5.7 Eos % (Auto) 3.2 Baso % (Auto) 0.7 Absolute Neuts (auto) 6.7 Absolute Lymphs (auto) 1.76 Nucleated RBC % 0 Sodium 136 Potassium 4.0 Chloride 103 Carbon Dioxide 20.6 L Anion Gap 12 BUN 11 Creatinine 0.67 L Estim Creat Clear Calc 183.19 Est GFR (MDRD) Non-Af 120 BUN/Creatinine Ratio 16.1 Glucose 100 H Calcium 9.3 Total Bilirubin 0.32 AST 16 ALT 21 Alkaline Phosphatase 103 Total Protein 7.5 Albumin 4.3 Globulin 3.2 Albumin/Globulin Ratio 1.3 Lipase 33 Serum , Qual NEGATIVE Urine Color Yellow Urine Clarity Clear Urine pH 6.0 Ur Specific [place] 1.020 Urine Protein 15 H Urine Glucose (UA) Normal Urine Ketones Negative Urine Occult Blood 10 H Urine Nitrite Negative Urine Bilirubin Negative Urine Urobilinogen Normal Ur Leukocyte Esterase Negative Urine RBC 0-5 SEEN Urine WBC 0-5 SEEN Ur Squamous Epith Cells 0 SEEN Urine Bacteria 0 SEEN Urine Mucus 0 SEEN Radiography Diagnostic Testing: Clinical Impression(s) from Imaging Studies Abdomen/Pelvis CT 02/26/25 14:56 IMPRESSION: Status post cholecystectomy. 4 cm x 4.2 cm right ovarian cyst. IUD seen within the uterus. OVERALL FINAL ASSESSMENT: . LI-RADS is not meant to be used in patients <18 years or patients with cirrhosisdue to congenital hepatic fibrosis or due to vascular disorders, because these patients have a lower chance of developing HCC. Reading Location: [facility] Discharge Plan Triage Chief Complaint: Abd Pain Other Complaint: Flank Pain ED Provider: Nino Sánchez Dx/Rx/DC Orders Clinical Impression: Abdominal pain Prescriptions: New dicyclomine 20 mg tablet 20 mg PO TID Qty: 30 0RF ondansetron 4 mg tablet,disintegrating 4 mg PO Q6H PRN (Reason: nausea and vomiting) Qty: 20 0RF No Action Mirena 20 mcg/24 hours (7 yrs) 52 mg intrauterine device 1 insert intrauterine ONCE Rx Instructions: as a single dose albuterol sulfate [Ventolin HFA] 90 mcg/actuation HFA aerosol inhaler 1 puff INHALATION Q6H Qty: 8.5 1RF albuterol sulfate 2.5 mg /3 mL (0.083 %) solution for nebulization 2.5 mg inhalation Q4H PRN (Reason: shortness of breath or wheezing) Qty: 180 1RF losartan-hydrochlorothiazide 50-12.5 mg tablet 1 tab PO DAILY duloxetine 60 mg capsule,delayed release(DR/EC) 60 mg PO DAILY (DME) Nebulizer machine See Rx Instructions .ROUTE .MEDSUPPLY Qty: 1 0RF Rx Instructions: As directed Breo Ellipta 200-25 mcg/dose blister with device 1 inh INHALATION DAILY Qty: 60 0RF Primary Care Provider: Tia Núñez Referrals: Tia Núñez, JUDD [Primary Care Provider] - Activity Restrictions/Additional Instructions: Your blood work here today did not show any acute findings. Your CT of your abdomen did not show any acute findings. Use prescriptions as prescribed and continue supportive care with oral hydration with water, Gatorade, Pedialyte etc. Start with a bland diet and advance as tolerated. Follow-up withyour doctor in the outpatient setting. Return for worsening symptoms or any other concerns Print Language: Jordanian Disposition Disposition: Home, Self Care What to do if you have Problems For any increased pain, shortness of breath, bleeding, nausea or vomiting, chestpain, or any unexpected problems, contact your Primary Care Provider. Call [facility] ([phone]) or report tothe closest Emergency Room. Call 911 if necessary. 02/26/25 [id number] Cosigner Signature (if applicable): CC: JUDD Núñez ~ Signed [facility]05-27-2025 Radiology Diagnostic study note [facility] Imaging Services [address] [place] [address] Abdomen/Pelvis W IV Cont ONLY MR#: [id number] Acct: [id number] Name: JESSICA ACUNA Rep #: [id number] : 1995 F 30 From: Charlie Lai MD PCP: JUDD Bernard Status: REG ER Study:Abdomen/Pelvis W IV Cont ONLY Date of E xam: 02/26/25 Exam# [id number] Ordering Dr: Hung Sánchez DO PROCEDURE: ABDOMEN/PELVIS W IV CONT ONLY 02/26/2025 REASON FOR EXAM: RLQ ABD PAIN Left lower quadrant and right flank pain. TECHNIQUE: Abdomen and pelvis CT with intravenous contrast. Coronal and Sagittal reconstruction series were provided. PATIENT PREPARATION: Per protocol ORAL CONTRAST TYPE: None. CONTRAST: Isovue-300 VOLUME: 100 mL One or more dose reduction techniques were used (e.g., Automated exposure control, adjustment of the mA and/or kV according to patient size, use of iterative reconstruction technique. RADIATION DOSE SUMMARY: CTDlvol: 19 mGy DLP: 1498.81 mGycm COMPARISON: None FINDINGS: Lung bases: Unremarkable Liver: Normal size. No mass. Gallbladder: Surgically absent. Spleen: Normal size. Pancreas: Normal size without evidence of mass surrounding inflammation or ductal dilation. Adrenals: Unremarkable Kidneys: Normal renal sizes. No hydronephrosis. Bladder: Unremarkable Reproductive Organs: There is a 4 cm x 4.2 cm right ovarian cyst. IUD is seen within the uterus. Small follicles are seen in the left ovary. Bowel: Unremarkable. Appendix: The appendix is not identified. There is no inflammatory process identified in the right lower quadrant to suggest appendicitis. Lymph nodes: Unremarkable. Vasculature: The abdominal aorta and IVC are normal. Peritoneum / Retroperitoneum: Unremarkable Bones: Unremarkable. CT/Abdomen/Pelvis W IV Cont ONLY IMPRESSION: Status post cholecystectomy. 4 cm x 4.2 cm right ovarian cyst. IUD seen within the uterus. OVERALL FINAL ASSESSMENT: . LI-RADS is not meant to be used in patients <18 years or patients with cirrhosisdue to congenital hepatic fibrosis or due to vascular disorders, because these patients have a lower chance of developing HCC. Reading Location: [facility] CC: MACHINE HAMPER MAKERJose Núñez; Dr. Nino Sánchez DO ~ Cooler Servicer: Signed [facility]05-27-2025 Discharge summary Author Nino Sánchez [facility] Note Date/Time February 26, 2025 3:43p m [facility] Medical Records Department [address] [place] [address] Emergency Department Summary 02/26/25 MR#: [id number] Acct: [id number] Name: JESSICA ACUNA Rep #:[id number] : 1995 30 From: Nino Sánchez DO PCP: Tia Núñez MACHINE HAMPER MAKER-C Status:REG ER Location: ED HPI History of Present Illness Chief Complaint: Abd Pain Narrative Narrative: Patient is a 30-year-old female with past medical history of GERD, LUCY, asthma who presents to the emerged part with chief complaint of abdominal pain diarrheaand vomiting. She states that her symptoms started earlier today. Patient denies recent contacts. She rates her pain a 7 out of 10 in the right lower portion of her abdomen. Patient denies any history kidney stones. Patient states that she has had her gallbladder out and is passing gas. [facility] Medical History Non-smoker COVID-19 affecting childbirth GERD (gastroesophageal reflux disease) Leukocytosis Environmental allergies Allergic rhinitis LUCY (obstructive sleep apnea) Home Medications ?Medication ?Instructions ?Recorded ?Last Taken ?Type levonorgestrel (Mirena) 1 insert intrauterine ONCE 0 11/26/21 Unknown History albuterol sulfate 2.5 mg/3 mL 2.5 mg (3 mL) inhalation Q4H PRN 12/21/22 Unknown Rx (0.083 %) solution for nebulization shortness of breat h or wheezing #180 mL albuterol sulfate 90 mcg/actuation 1 puff inhalation Q 6H #8.5 grams 12/21/22 Unknown Rx aerosol inhaler (Ventolin HFA) Nebulizer machine #1 ea 06/18/24 Unknown Rx fluticasone furoate 200 1 inh inhalation DAILY #60 e a 11/28/24 Unknown Rx mcg-vilanterol 25 mcg/dose inhalation powder (Breo Ellipta) dicyclomine 20 mg tablet 20 mg PO TID #30 tabs Unknown Rx duloxetine 60 mg capsule,delayed 60 mg PO DAILY Unknown History release losartan 50 mg-hydrochlorothiazide 1 tab PO DAILY 02/01 04/26 Unknown History 12.5 mg tablet ondansetron 4 mg disintegrating 4 mg PO Q6H PRN nausea and 02/26/25 Unknown Rx tablet vomiting #20 tabs Allergy/AdvReac Type Severity Reaction Status Date / Time Penicillins Allergy rash Verified 02/26/25 12:39 Family History Father CVA (cerebral vascular accident) Mother Intrinsic asthma Grandfather Diabetes COPD (chronic obstructive pulmonary disease) Surgical History S/P cholecystectomy History of tonsillectomy History of foot surgery Social History Smoking Status: Never smoker alcohol intake: never substance use type: does not use caffeine: Yes what type of physical activity do you participate in: none seatbelt use: always do you feel safe at home: Yes ROS ROS ED ROS Narrative Constitutional: Complains of fever at home of 100.1 denies lightheadedness or dizziness Cardiovascular: Denies chest pain Respiratory: Denies coughing denies any sputum production Abdomen: Complains of abdominal pain nausea vomiting diarrhea as noted above : Denies urinary symptoms Neurological: Denies any numbness, weakness, tingling Musculoskeletal: complains of some right flank pain Skin: Denies any rashes or lesions EXAM Physical Exam Narrative Exam Narrative: General: Patient lying in bed rest comfortably did not appear to be acute distress Head: Atraumatic, normocephalic Eyes: PERRL bilaterally, EOMI bilaterally, no conjunctival injection noted Neck: Soft, supple, trachea midline Cardiovascular: Regular rate and rhythm Respiratory: Clear to auscultation bilaterally Abdomen: Soft, nondistended, mild tenderness palpation the right lower quadrant no rebound or guarding on exam Extremities: +5/5 strength noted in the bilateral upper and lower extremities, radial pulses +2/4 in the bilateral extremities Neurological: Patient following commands knew that she was at [facility] year is 2024 Skin: Warm, dry, intact no rashes or lesions noted Const Vital Signs: 02/26/25 12:37 02/26/25 14:42 Temperature 98.3 F Temperature Source Oral Pulse Rate 83 Respiratory Rate 82 H 16 Blood Pressure 140/122 H 147/112 H Blood Pressure Mean 128 123 Pulse Ox 100 100 Oxygen Delivery Method Room Air Room Air MDM MDM MDM Narrative Medical decision making narrative: Patient is a 30-year-old female who presented to the emerged part with chief complaint of abdominal pain. On the differential diagnosis includes but not limited to UTI, pyelonephritis, appendicitis, bowel obstruction, viral gastroenteritis. Once workup is obtained reviewed she will be reevaluated. Patient be given IV fluids and Bentyl. Patient's CBC was reviewed showed no evidence leukocytosis white blood count wasnoted to be 9.4, hemoglobin 16.1, platelet count was noted to be 286. Patient sodium was notably 136, potassium was noted to be 4, creatinine was 0.67. Patient's AST and ALT were 16 and 21 respectively with a normal total bilirubin of 0.32. Patient lipase normal at 33, test negative. Patient urinalysis reviewed showed negative nitrites negative leukocyte esterase no concern for infection. Patient CT abdomen pelvis with IV contrast was reviewed showed status postcholecystectomy. 4 cm x 4.2 cm right ovarian cyst. IUD seen within the uterus. On reevaluation patient is feeling better would like to go home at this point time. Patient be given Bentyl and Zofran. She likely has viral gastroenteritisthat is causing her symptoms. I discussed this with her and encouraged her to continue supportive care with hydration and starting with a bland diet and advance as tolerated. She was encouraged to follow-up with her primary care physician outpatient and return with worsening symptoms or concerns. She is agreeable this plan all question concerns answered she was discharged home in stable condition. Patient significant other at bedside is also agreeable this plan. He Lab Data Labs: Laboratory Results - last 24 hr 02/26/25 02/26/25 14:00 14:02 WBC 9.4 RBC 5.52 H Hgb 16.1 H Hct 46.6 MCV 84.4 MCH 29.2 MCHC 34.5 RDW Std Deviation 37.8 RDW Coeff of Juan Diego 12.3 Plt Count 286 MPV 10.2 Immature Gran % (Auto) 0.200 Neut % (Auto) 71.4 H Lymph % (Auto) 18.8 L [place] % (Auto) 5.7 Eos % (Auto) 3.2 Baso % (Auto) 0.7 Absolute Neuts (auto) 6.7 Absolute Lymphs (auto) 1.76 Nucleated RBC % 0 Sodium 136 Potassium 4.0 Chloride 103 Carbon Dioxide 20.6 L Anion Gap 12 BUN 11 Creatinine 0.67 L Estim Creat Clear Calc 183.19 Est GFR (MDRD) Non-Af 120 BUN/Creatinine Ratio 16.1 Glucose 100 H Calcium 9.3 Total Bilirubin 0.32 AST 16 ALT 21 Alkaline Phosphatase 103 Total Protein 7.5 Albumin 4.3 Globulin 3.2 Albumin/Globulin Ratio 1.3 Lipase 33 Serum , Qual NEGATIVE Urine Color Yellow Urine Clarity Clear Urine pH 6.0 Ur Specific [place] 1.020 Urine Protein 15 H Urine Glucose (UA) Normal Urine Ketones Negative Urine Occult Blood 10 H Urine Nitrite Negative Urine Bilirubin Negative Urine Urobilinogen Normal Ur Leukocyte Esterase Negative Urine RBC 0-5 SEEN Urine WBC 0-5 SEEN Ur Squamous Epith Cells 0 SEEN Urine Bacteria 0 SEEN Urine Mucus 0 SEEN Radiography Diagnostic Testing: Clinical Impression(s) from Imaging Studies Abdomen/Pelvis CT 02/26/25 14:56 IMPRESSION: Status post cholecystectomy. 4 cm x 4.2 cm right ovarian cyst. IUD seen within the uterus. OVERALL FINAL ASSESSMENT: . LI-RADS is not meant to be used in patients <18 years or patients with cirrhosisdue to congenital hepatic fibrosis or due to vascular disorders, because these patients have a lower chance of developing HCC. Reading Location: [place] [address] Discharge Plan Triage Chief Complaint: Abd Pain Other Complaint: Flank Pain ED Provider: Nino Sánchez Dx/Rx/DC Orders Clinical Impression: Abdominal pain Prescriptions: New dicyclomine 20 mg tablet 20 mg PO TID Qty: 30 0RF ondansetron 4 mg tablet,disintegrating 4 mg PO Q6H PRN (Reason: nausea and vomiting) Qty: 20 0RF No Action Mirena 20 mcg/24 hours (7 yrs) 52 mg intrauterine device 1 insert intrauterine ONCE Rx Instructions: as a single dose albuterol sulfate [Ventolin HFA] 90 mcg/actuation HFA aerosol inhaler 1 puff INHALATION Q6H Qty: 8.5 1RF albuterol sulfate 2.5 mg /3 mL (0.083 %) solution for nebulization 2.5 mg inhalation Q4H PRN (Reason: shortness of breath or wheezing) Qty: 180 1RF losartan-hydrochlorothiazide 50-12.5 mg tablet 1 tab PO DAILY duloxetine 60 mg capsule,delayed release(DR/EC) 60 mg PO DAILY (DME) Nebulizer machine See Rx Instructions .ROUTE .MEDSUPPLY Qty: 1 0RF Rx Instructions: As directed Breo Ellipta 200-25 mcg/dose blister with device 1 inh INHALATION DAILY Qty: 60 0RF Primary Care Provider: Tia Núñez Referrals: Tia Núñez NP-C [Primary Care Provider] - Activity Restrictions/Additional Instructions: Your blood work here today did not show any acute findings. Your CT of your abdomen did not show any acute findings. Use prescriptions as prescribed and continue supportive care with oral hydration with water, Gatorade, Pedialyte etc. Start with a bland diet and advance as tolerated. Follow-up with your doctor in the outpatient setting. Return for worsening symptoms or any other concerns Print Language: Jordanian Disposition Disposition: Home, Self Care What to do if you have Problems For any increased pain, shortness of breath, bleeding, nausea or vomiting, chestpain, or any unexpected problems, contact your Primary Care Provider. Call [facility] ([phone]) or report to the closest Emergency Room. Call 911 if necessary. 02/26/25 [id number] <Electronically signed by Nino Sánchez DO> Kyleigh Signature (if applicable): CC: JUDD Núñez ~ Signed [facility] Work Phone: [phone] Radiology Diagnostic study note [facility] [address] [place] [address] CT SCAN REPORT : [id number], Signed. Patient: JESSICA ACUNA : 1995 MR#: [id number] Acct:[id number] - EXAMINATION: CT OF THE ABDOMEN AND PELVIS WITH CONTRAST 02/03/2025 7:45 pm TECHNIQUE: CT of the abdomen and pelvis was performed with the administration of intravenous contrast. Multiplanar reformatted images are provided for review. Automated exposure control, iterative reconstruction, and/or weight based adjustment of the mA/kV was utilized to reduce the radiation dose to as low as reasonably achievable. COMPARISON: None. HISTORY: ORDERING SYSTEM PROVIDED HISTORY: abdominal pain FINDINGS: The liver has normal size. There is no pattern of portal venous phase contrast enhancement for the liver. The portal venous system is patent. There is no focal lesions in the liver. Patient had previous cholecystectomy. The biliary tree is dilated. The pancreas has uniform size and contrast enhancement. Peripancreatic fat planes preserved. Pancreatic duct system is not dilated. The spleen appear unremarkable. The adrenal glands are not enlarged. Kidneys have preserved size, cortical thickness and parenchymal enhancement. There is no renal calculus obstruction. Aorta and IVC appear unremarkable. There is no midline retro peritoneal adenopathy. The bladder is mild distended, it appears unremarkable. The uterus appears unremarkable, it has a centrally located IUD device. There is normal appearance for the left ovary. There is a follicular cyst of 3.5 cm in the right ovary. There are no acute inflammatory changes in the omental/mesenteric fat planes, there are no signs for pericolonic inflammatory process, colitis or diverticulitis. The appendix seen and has unremarkable appearance. Lower lung bases demonstrate no significant findings. Visualized bone structures appear unremarkable. Mild degenerative changes are seen for the facet joints of the L5-S1 in the lumbar spine on the left side. There is a well corticated old avulsion of the tip of the inferior articular facet L4 in left side L5-S1 facet joint this is now an incidental finding CT/CT ABD/PELVIS W IMPRESSION: No indication for acute intraperitoneal retroperitoneal process in the abdomen or in All CT scans at this facility use dose modulation, iterative reconstruction, and/or weight based dosing when appropriate to reduce radiation dose to as low as reasonably achievable. Electronically Signed by: LAZARO GIFFORD MD Signed date/time: 02/03/252021 CC: ISMBA ABRAHAM MD; VANESA SOLANO MD [facility]03-13-2025 Discharge summary Author VIET MARIA [facility] Note Date/Time December 13, 2024 8:2 8pm [facility] [address] [place] [id number] HEALTH INFORMATION MANAGEMENT EMERGENCY DEPARTMENT : [id number] Signed Patient: JESSICA ACUNA Acct:[id number] MRUN: [id number] : 1995 Sex: F Loc: ED AD M Date: 12/13/24 Room/Bed: DISC Date: 12/13 History of Present Illness <NBA CAMPOS - Last Filed: 12/13/24 20:17> - General Symptom onset: 12/13 HPI: 29-year-old female with left flank and lower abdominal pain that started today. reports she was having some urinary frequency for the last few days. Has prior history of kidney infections. Denies any fever or chills. Denies anytravelling history/sick contacts/recent use of antibiotics/Covid exposure. No cough/congestion/fever/chills/rash. No blood in stool/vomitus or urine. NO LOC/Dizziness/Syncope. No headache/neck pain/dyspnea/chest pain. No speech or vision problems. No numbness/tingling or paresthesia. No unilateral weakness in face or extremities Mode of Transport: Ambulatory <VIET MARIA - Last Filed: 12/14/24 15:22> - General Chief Complaint: Abdominal/GI Complaints Stated Complaint: ABD PAIN BACK PAIN Time Seen by Provider: 12/13/24 16:14 - Related Data Allergies Allergy/AdvReac Type Severity Reaction Status Date / Time Penicillins Allergy Unknown Verified 12/13/24 16:51 Review of System - Constitutional Constitutional: Present: see HPI, Well developed, Well nourished, Non-toxic. Absent: diaphoresis, fever, Lethargic - Nose,Throat,Mouth Nose (ROS): Present: no symptoms reported. Absent: pain Throat: Present: no symptoms reported. Absent: pain, swelling, discharge Mouth: Present: no symptoms reported. Absent: pain, swelling - Respiratory Respiratory: Present: no symptoms reported. Absent: cough, short of breath, wheezing - CV Cardiology: Present: no symptoms reported. Absent: chest pain, edema - GI Gastrointestinal/Abdominal: Present: see HPI, abdominal pain. Absent: diarrhea,nausea, vomiting - Genitourinary Symptoms: Present: see HPI, burning, frequency, flank pain (left). Absent: dysuria, pain, vaginal bleeding - Neuro Neurological: Present: no symptoms reported. Absent: headache, weakness, saddleanesthesia - Muskuloskeletal Musculoskeletal: Present: no symptoms reported. Absent: back pain, joint pain, joint swelling, neck pain - Integumentary Skin: Absent: lesions, rash - Allergic/Immunologic Immunological/Allergic: Present: no symptoms reported - Hematologic Hematologic/Lymphatic: Absent: easy bleeding, easy bruising, swollen glands - Endocrine Endocrine: Present: no symptoms reported - Psychiatric Psychiatric: Present: Normal Affect, Normal Mood. Absent: Depressed - All Others/Exceptions All Other Systems: Reviewed and Negative Except Where Noted in Documentation <VIET AMRIA M - Last Filed: 12/14/24 15:22> ED PMH/Social HX/Family HX - Social History Able to Read: No Able to Write: No Smoking Status: Never Smoked Hx Chewing Tobacco Use: No Alcohol Use: Never Any recreational drug use reported?: No Feels Threatened In Home Environment: No Feels Threatened In a Relationship: No - Clio/Gender ID What is your current Gender Identity? Choose all that Apply: Female Define your Sexual Orientation?: Straight/Heterosexual <VIET MARIA - Last Filed: 12/14/24 15:22> General Exam - General Limitations: Complains of: no limitations Constitutional: Present: see HPI, Well developed, Well nourished, well hydrated,Non-toxic. Absent: diaphoresis, fever, Lethargic - Head Head exam: Present: atraumatic, normocephalic, normal inspection - Eye Eye exam: Present: normal apperance, normal accomodation, EOMI Pupils: Present: PERRL - ENT ENT exam: Present: normal orophraynx, mucous membranes moist, TMs clear w/ good light reflex, normal external ear exam, No Nasal Discharge, Posterior Pharynx Non-erethemetous - Expanded ENT Exam Ear exam: Present: normal external inspection Mouth exam: Present: normal external inspection Teeth exam: Present: normal inspection Throat exam: normal inspection - Neck Neck exam: Present: full ROM, Supple. Absent: tenderness, meningismus, Posterior Lymphadenopathy, Anterior Lymphadenopathy, anterior neck swelling - Respiratory Respiratory exam: Present: lungs clear and equal bilaterally. Absent: respiratory distress, wheezes, rales, rhonchi, stridor, accessory muscle use, Nasal Flaring - Cardiovascular Cardiovascular Exam: Present: regular rate, normal rhythm, normal heart sounds. Absent: murmur, rubs, gallop, clicks - GI/Abdominal GI/Abdominal exam: Present: soft, non tender, normal bowel sounds, tenderness. Absent: guarding, rebound, rigid, mass, bruit, pulsatile mass, hernia - Extremities Exam Extremities exam: Present: normal inspection, neurovascularly intact, full ROM, normal muscle strength, normal/equal pulses. Absent: calf tenderness, pedal edema, tenderness - Back Exam Back exam: Present: normal inspection, full ROM, CVA tenderness (L). Absent: tenderness, CVA tenderness (R), vertebral tenderness, cervical tenderness, thoracic tenderness, lumbar tenderness - Neurological Exam Neurological exam: Present: alert, oriented X3, CN II-XII intact, normal gait. Absent: motor sensory deficit - Expanded Neurological Exam Patient oriented to: Present: person, place, time Speech: Present: fluid speech - Psychiatric Psychiatric exam: Present: normal affect, normal mood - Skin Skin Color: Present: Normal, [place] Skin exam: Present: warm, dry - Expanded Skin Exam Type of lesion: Absent: rash <VIET MARIA M - Last Filed: 12/14/24 15:22> - Vital Signs Vital Signs 12/13/24 12/13/24 12/13/24 16:12 16:16 19:15 Temperature 98.9 F 98.9 F Pulse Rate 91 Pulse Rate [VS 89 88 Machine] Respiratory 16 16 Rate Blood Pressure Blood Pressure 156/105 H 156/108 H [Left Arm] O2 Sat by Pulse 98 98 99 Oximetry(%) 12/13/24 12/13/24 12/13/24 19:30 19:56 20:00 Temperature Pulse Rate 89 98 98 Pulse Rate [VS Machine] Respiratory Rate Blood Pressure 135/87 Blood Pressure [Left Arm] O2 Sat by Pulse 97 95 97 Oximetry(%) Abdominal pain MDM - Lab Data Result diagrams: 12/13/24 16:24 12/13/24 16:24 <NBA CAMPOS - Last Filed: 12/13/24 20:17> - Lab Data Result diagrams: 12/13/24 16:24 12/13/24 16:24 - Radiology Data Radiology Report: Radiology report reviewed,negative per Radiologist - Differential Diagnosis Differential DX Abdominal pain: Considered: AAA, Appendicitis, Constipation, Gastroenteritis, hepatitis, Inflammatory bowel disease, Intussusception, Ischemic bowel, Neoplasm, PUD, Renal/ureteral calculi, Gonadal torsion, Diverticulitis, UTI, Volvulus, AMI, Pancreatitis, Perforated peptic ulcer, Perforated viscus, Early appendicitis, Bowel obstruction, Cholecystitis <VIET MARIA - Last Filed: 12/14/24 15:22> - Lab Data Lab Results 12/13/24 12/13/24 12/13/24 Range/Units 16:15 16:24 16:24 WBC 10.8 (3.6-10.8) K/uL RBC 5.20 H (3.83-5.19) M/uL Hgb 15.4 H (11.1-13.7) g/dL Hct 45.4 (33.4-46.0) % MCV 87.3 (81.0-99.0) fL MCH 29.6 (27.0-31.0) pg MCHC 33.9 (33.0-37.0) g/dL RDW 12.8 (11.5-14.5) % Plt Count 278 (148-402) K/uL MPV 10.2 (7.4-10.4) fL Neut % (Auto) 65.9 H (43.0-65.0) % Lymph % (Auto) 24.4 (17.0-45.5) % [place] % (Auto) 6.4 (5.5-11.7) % Eos % (Auto) 2.6 (0.9-2.9) % Baso % (Auto) 0.6 (0.2-1.0) % Abs Immat Gran (man) 0.01 (0.00-0.10) K/uL Absolute Neuts (auto) 7.12 H (2.20-4.80) K/uL Absolute Lymphs (auto) 2.60 (1.30-2.90) K/uL Absolute Monos (auto) 0.70 (0.30-0.80) K/uL Absolute Eos (auto) 0.30 H (0.00-0.20) K/uL Absolute Basos (auto) 0.06 (0.00-0.10) K/uL Immature Gran % 0.10 (0.00-1.00) % Sodium 136 (132-145) mmol/L Potassium 3.6 (3.3-5.1) mmol/L Chloride 99 (94-110) mmol/L Total Carbon Dioxide 31 (21-34) mmol/L Anion Gap 9.6 (8.0-16.0) mmol/L BUN 16.3 (3.2-26.9) mg/dL Creatinine 0.85 (0.51-0.95) mg/dL Est GFR (MDRD) Af Amer > 60 (>60) Est GFR (MDRD) Non-Af > 60 (>60) BUN/Creatinine Ratio 19 (6-20) Glucose 89 (65-100) mg/dL Calcium 8.9 (8.2-10.0) mg/dL Total Bilirubin 0.30 (0.00-0.99) mg/dL AST 15 (3-39) U/L ALT 36 (13-66) U/L Alkaline Phosphatase 110 (54-112) U/L Troponin I High Sens 15 (0-51) ng/L Troponin I Hi Sens Del % Troponin I Hi Sens Abs Chng ng/L Total Protein 7.4 (6.1-8.2) g/dL Albumin 3.5 (3.4-5.0) g/dL Globulin 3.9 (1.5-4.5) g/dL Albumin/Globulin Ratio 0.9 L (1.1-2.5) Lipase 55 L (65-230) U/L Beta HCG, Quant 1 mIU/mL Urine Color leif (Yellow) Urine Appearance Clear (Clear) Urine pH 5 Ur Specific [place] 1.020 (1.015-1.025) Urine Protein 15 A (Negative) Urine Ketones Negative (Negative) Urine Blood 10 A (Negative) Urine Nitrite Negative (Negative) Urine Bilirubin Negative (Negative) Urine Urobilinogen Normal (Normal-1.0) mg/dL Ur Leukocyte Esterase Negative (Negative) Urine RBC None seen (0 - 2) /hpf Urine WBC 0-2 (0 - 6) /hpf Ur Epithelial Cells >15 (0 - 6) /lpf Urine Bacteria 1+ (0 - 1+) /hpf Urine Glucose Normal (Negative) 12/13/24 Range/Units 18:26 WBC (3.6-10.8) K/uL RBC (3.83-5.19) M/uL Hgb (11.1-13.7) g/dL Hct (33.4-46.0) % MCV (81.0-99.0) fL MCH (27.0-31.0) pg MCHC (33.0-37.0) g/dL RDW (11.5-14.5) % Plt Count (148-402) K/uL MPV (7.4-10.4) fL Neut % (Auto) (43.0-65.0) % Lymph % (Auto) (17.0-45.5) % [place] % (Auto) (5.5-11.7) % Eos % (Auto) (0.9-2.9) % Baso % (Auto) (0.2-1.0) % Abs Immat Gran (man) (0.00-0.10) K/uL Absolute Neuts (auto) (2.20-4.80) K/uL Absolute Lymphs (auto) (1.30-2.90) K/uL Absolute Monos (auto) (0.30-0.80) K/uL Absolute Eos (auto) (0.00-0.20) K/uL Absolute Basos (auto) (0.00-0.10) K/uL Immature Gran % (0.00-1.00) % Sodium (132-145) mmol/L Potassium (3.3-5.1) mmol/L Chloride (94-110) mmol/L Total Carbon Dioxide (21-34) mmol/L Anion Gap (8.0-16.0) mmol/L BUN (3.2-26.9) mg/dL Creatinine (0.51-0.95) mg/dL Est GFR (MDRD) Af Amer (>60) Est GFR (MDRD) Non-Af (>60) BUN/Creatinine Ratio (6-20) Glucose (65-100) mg/dL Calcium (8.2-10.0) mg/dL Total Bilirubin (0.00-0.99) mg/dL AST (3-39) U/L ALT (13-66) U/L Alkaline Phosphatase (54-112) U/L Troponin I High Sens 13 (0-51) ng/L Troponin I Hi Sens Del 15 % Troponin I Hi Sens Abs Chng 2 ng/L Total Protein (6.1-8.2) g/dL Albumin (3.4-5.0) g/dL Globulin (1.5-4.5) g/dL Albumin/Globulin Ratio (1.1-2.5) Lipase (65-230) U/L Beta HCG, Quant mIU/mL Urine Color (Yellow) Urine Appearance (Clear) Urine pH Ur Specific [place] (1.015-1.025) Urine Protein (Negative) Urine Ketones (Negative) Urine Blood (Negative) Urine Nitrite (Negative) Urine Bilirubin (Negative) Urine Urobilinogen (Normal-1.0) mg/dL Ur Leukocyte Esterase (Negative) Urine RBC (0 - 2) /hpf Urine WBC (0 - 6) /hpf Ur Epithelial Cells (0 - 6) /lpf Urine Bacteria (0 - 1+) /hpf Urine Glucose (Negative) Orders: Medications Discontinued Medications Hydromorphone HCl (Hydromorphone Hcl 1 Mg/Ml Injection) 0.5 mg IVP ONE ONE Stop: 12/13/24 20:14 Last Admin: 12/13/24 20:18 Dose: 0.5 mg Documented by: [email or web address] Ketorolac Tromethamine (Ketorolac Tromethamine 30 Mg/Ml Injection) 30 mg IVP STAT STA Stop: 12/13/24 18:19 Last Admin: 12/13/24 18:42 Dose: 30 mg Documented by: [email or web address] Morphine Sulfate (Morphine Sulfate 4 Mg/Ml Injection) 4 mg IVP STAT STA Stop: 12/13/24 16:40 Last Admin: 12/13/24 16:54 Dose: 4 mg Documented by: [email or web address] Ondansetron HCl (Ondansetron Hcl/Pf 4 Mg/2 Ml Injection) 4 mg IVP STAT STA Stop: 12/13/24 16:40 Last Admin: 12/13/24 16:52 Dose: 4 mg Documented by: [email or web address] - Radiology Data IMPRESSIONS Abdomen/Pelvis CT 12/13/24 17:15 IMPRESSION: 1. No acute intra-abdominal or pelvic process. 2. No evidence of nephrolithiasis or ureteral obstruction. 3. Normal appendix. 4. IUD within the uterus with appropriate orientation. 5. Simple appearing physiologic cyst involving the right ovary measuring up to 3.5 cm. No follow-up imaging recommended. - Medical Decision Making this patient was seen evaluated and treated by Dr. Perez, please refer to complete history and physical examination workup plan and treatment as well as disposition. He signed out with a CT scan of the abdomen and pelvis without contrast for me. CT showed no acute intra-abdominal pelvic abnormality he was ovarian cyst radiologist recommended no need for follow up. I reviewed her labsand urinalysis she was complaining of pain again her urinalysis negative for UTIlabs were unremarkable. She was given Dilaudid 0.5 mg IV and discharged home with a close follow up with her primary care physician. The exact cause of the abdominal pain and flank pain is undetermined CT negative labs were unremarkableurinalysis negative. She does not have ovarian cyst 3.5 cm right adnexal area. No follow up additional testing was as recommended by radiologist as described above. Patient was being discharged home with close follow up with primary carephysician (NBA CAMPOS) ED Course: [ we will check labs. Patient will be given IV Zofran, IV morphine, we will check urinalysis, CT abdomen pelvis for further evaluation of patient's symptoms and patient to be re-evaluated once all her test results are back ] [ Patient does not smoke Prior external records reviewed: Outpatient records The patient has received a medical screening examination: within reasonable clinical confidence has been stabilized in the ED. Imaging and EKG: Interpretation by radiology and independently interpreted by me. [ cba and electrolytes unremarkble, ua shows 10 blood and 15 [address] Ct abd pelvis pending Presenting clinical condition necessitates admission or observation consideration: [ No ] Independent Hx provided by: [ Patient/RN ] Med Rx considered but ultimately not given: [ Steroids/Antibiotics/Lasix ] Dx tests considered but ultimately not ordered: [ xray kub Although not an exhaustive list of Differential Diagnosis (though considered), patient?s HPI, PE, and other findings are not suggestive of: [ see chart ] Condition: Stable Disposition: 7 pm case signed out to Dr. Campos to f/up on pending tests and for patient reevaluation/appropriate disposition THIS DOCUMENT HAS BEEN CREATED USING VOICE RECOGNITION SOFTWARE AND MAY CONTAIN GRAMMATICAL, SYNTAX, AND TYPOGRAPHICAL ERRORS. (VIET MARIA) ED Discharge Summary <NBA CAMPOS - Last Filed: 12/13/24 20:17> <VIET MARIA - Last Filed: 12/14/24 15:22> - Discharge Data Clinical Impression: Abdominal pain, Flank pain, Right ovarian cyst Condition: Good Disposition: 01 HOME / SELF CARE Referrals: ARAM JORDAN MD [Primary Care Provider] - Additional Instructions: As discussed exact cause of your abdominal pain and flank pain is undetermined urine showed no definitive evidence of infection if she was taking antibiotics may mask infection and may not show up infection if he was taking antibiotics. CT scan showed no evidence of kidney stone or any obstruction of the urinary tract or any inflammation of the kidney. It was noncontrast study. Which is limited for evaluation kidneys. however there was no evidence of UTI on urinalysis. You do have ovarian cyst that could be causing abdominal pain. You need to follow up with your primary care physician for re-evaluation and to ensure complete resolution if any problems concerns return to ER. Time Seen by Provider: 12/13/24 16:14 Electronically Generated By:VIET MARIA MD Generated Date/Time: 12/13/24 1702 Electronically Signed By: <Electronically signed by VIET MARIA MD> 12/14/24 1522 <Electronically signed by NBA CAMPOS MD> 12/13/242 Co Signed Electronically By: Co Signed Date/Time: CC: ARAM JORDAN MD [facility] Work Phone: 1(125) 796-524903-13-[address] [address] HEALTH INFORMATION MANAGEMENT EMERGENCY DEPARTMENT : [id number] Signed Patient: JESSICA ACUNA Acct:[id number] MRUN: [id number] : 1995 Sex: F Loc: ED AD M Date: 12/13/24 Room/Bed: DISC Date: 12/13 History of Present Illness - General Symptom onset: 12/13 HPI: 29-year-old female with left flank and lower abdominal pain that started today. reports she was having some urinary frequency for the last few days. Has prior history of kidney infections. Denies any fever or chills. Denies anytravelling history/sick contacts/recent use of antibiotics/Covid exposure. No cough/congestion/fever/chills/rash. No blood in stool/vomitus or urine. NO LOC/Dizziness/Syncope. No headache/neck pain/dyspnea/chest pain. No speech or vision problems. No numbness/tingling or paresthesia. No unilateral weakness in face or extremities Mode of Transport: Ambulatory - General Chief Complaint: Abdominal/GI Complaints Stated Complaint: ABD PAIN BACK PAIN Time Seen by Provider: 12/13/24 16:14 - Related Data Allergies Allergy/AdvReac Type Severity Reaction Status Date / Time Penicillins Allergy Unknown Verified 12/13/24 16:51 Review of System - Constitutional Constitutional: Present: see HPI, Well developed, Well nourished, Non-toxic. Absent: diaphoresis, fever, Lethargic - Nose,Throat,Mouth Nose (ROS): Present: no symptoms reported. Absent: pain Throat: Present: no symptoms reported. Absent: pain, swelling, discharge Mouth: Present: no symptoms reported. Absent: pain, swelling - Respiratory Respiratory: Present: no symptoms reported. Absent: cough, short of breath, wheezing - CV Cardiology: Present: no symptoms reported. Absent: chest pain, edema - GI Gastrointestinal/Abdominal: Present: see HPI, abdominal pain. Absent: diarrhea,nausea, vomiting - Genitourinary Symptoms: Present: see HPI, burning, frequency, flank pain (left). Absent: dysuria, pain, vaginal bleeding - Neuro Neurological: Present: no symptoms reported. Absent: headache, weakness, saddleanesthesia - Muskuloskeletal Musculoskeletal: Present: no symptoms reported. Absent: back pain, joint pain, joint swelling, neckpain - Integumentary Skin: Absent: lesions, rash - Allergic/Immunologic Immunological/Allergic: Present: no symptoms reported - Hematologic Hematologic/Lymphatic: Absent: easy bleeding, easy bruising, swollen glands - Endocrine Endocrine: Present: no symptoms reported - Psychiatric Psychiatric: Present: Normal Affect, Normal Mood. Absent: Depressed - All Others/Exceptions All Other Systems: Reviewed and Negative Except Where Noted in Documentation ED PMH/Social HX/Family HX - Social History Able to Read: No Able to Write: No Smoking Status: Never Smoked Hx Chewing Tobacco Use: No Alcohol Use: Never Any recreational drug use reported?: No Feels Threatened In Home Environment: No Feels Threatened In a Relationship: No - Clio/Gender ID What is your current Gender Identity? Choose all that Apply: Female Define your Sexual Orientation?: Straight/Heterosexual General Exam - General Limitations: Complains of: no limitations Constitutional: Present: see HPI, Well developed, Well nourished, well hydrated,Non-toxic. Absent: diaphoresis, fever, Lethargic - Head Head exam: Present: atraumatic, normocephalic, normal inspection - Eye Eye exam: Present: normal apperance, normal accomodation, EOMI Pupils: Present: PERRL - ENT ENT exam: Present: normal orophraynx, mucous membranes moist, TMs clear w/ good light reflex, normal external ear exam, No Nasal Discharge, Posterior Pharynx Non-erethemetous - Expanded ENT Exam Ear exam: Present: normal external inspection Mouth exam: Present: normal external inspection Teeth exam: Present: normal inspection Throat exam: normal inspection - Neck Neck exam: Present: full ROM, Supple. Absent: tenderness, meningismus, Posterior Lymphadenopathy, Anterior Lymphadenopathy, anterior neck swelling - Respiratory Respiratory exam: Present: lungs clear and equal bilaterally. Absent: respiratory distress, wheezes, rales, rhonchi, stridor, accessory muscle use, Nasal Flaring - Cardiovascular Cardiovascular Exam: Present: regular rate, normal rhythm, normal heart sounds. Absent: murmur, rubs, gallop, clicks - GI/Abdominal GI/Abdominal exam: Present: soft, non tender, normal bowel sounds, tenderness. Absent: guarding, rebound, rigid, mass, bruit, pulsatile mass, hernia - Extremities Exam Extremities exam: Present: normal inspection, neurovascularly intact, full ROM, normal muscle strength, normal/equal pulses. Absent: calf tenderness, pedal edema, tenderness - Back Exam Back exam: Present: normal inspection, full ROM, CVA tenderness (L). Absent: tenderness, CVA tenderness (R), vertebral tenderness, cervical tenderness, thoracic tenderness, lumbar tenderness - Neurological Exam Neurological exam: Present: alert, oriented X3, CN II-XII intact, normal gait. Absent: motor sensory deficit - Expanded Neurological Exam Patient oriented to: Present: person, place, time Speech: Present: fluid speech - Psychiatric Psychiatric exam: Present: normal affect, normal mood - Skin Skin Color: Present: Normal, [place] Skin exam: Present: warm, dry - Expanded Skin Exam Type of lesion: Absent: rash - Vital Signs Vital Signs 12/13/24 12/13/24 12/13/24 16:12 16:16 19:15 Temperature 98.9 F 98.9 F Pulse Rate 91 Pulse Rate [VS 89 88 Machine] Respiratory 16 16 Rate Blood Pressure Blood Pressure 156/105 H 156/108 H [Left Arm] O2 Sat by Pulse 98 98 99 Oximetry(%) 12/13/24 12/13/24 12/13/24 19:30 19:56 20:00 Temperature Pulse Rate 89 98 98 Pulse Rate [VS Machine] Respiratory Rate Blood Pressure 135/87 Blood Pressure [Left Arm] O2 Sat by Pulse 97 95 97 Oximetry(%) Abdominal pain MDM - Lab Data Result diagrams: 12/13/24 16:24 12/13/24 16:24 - Lab Data Result diagrams: 12/13/24 16:24 12/13/24 16:24 - Radiology Data Radiology Report: Radiology report reviewed,negative per Radiologist - Differential Diagnosis Differential DX Abdominal pain: Considered: AAA, Appendicitis, Constipation, Gastroenteritis, hepatitis, Inflammatory bowel disease, Intussusception, Ischemic bowel, Neoplasm, PUD, Renal/ureteral calculi, Gonadal torsion, Diverticulitis, UTI, Volvulus, AMI, Pancreatitis, Perforated peptic ulcer, Per forated viscus, Early appendicitis, Bowel obstruction, Cholecystitis - Lab Data Lab Results 12/13/24 12/13/24 12/13/24 Range/Units 16:15 16:24 16:24 WBC 10.8 (3.6-10.8) K/uL RBC 5.20 H (3.83-5.19) M/uL Hgb 15.4 H (11.1-13.7) g/dL Hct 45.4 (33.4-46.0) % MCV 87.3 (81.0-99.0) fL MCH 29.6 (27.0-31.0) pg MCHC 33.9 (33.0-37.0) g/dL RDW 12.8 (11.5-14.5) % Plt Count 278 (148-402) K/uL MPV 10.2 (7.4-10.4) fL Neut % (Auto) 65.9 H (43.0-65.0) % Lymph % (Auto) 24.4 (17.0-45.5) % [place] % (Auto) 6.4 (5.5-11.7) % Eos % (Auto) 2.6 (0.9-2.9) % Baso % (Auto) 0.6 (0.2-1.0) % Abs Immat Gran (man) 0.01 (0.00-0.10) K/uL Absolute Neuts (auto) 7.12 H (2.20-4.80) K/uL Absolute Lymphs (auto) 2.60 (1.30-2.90) K/uL Absolute Monos (auto) 0.70 (0.30-0.80) K/uL Absolute Eos (auto) 0.30 H (0.00-0.20) K/uL Absolute Basos (auto) 0.06 (0.00-0.10) K/uL Immature Gran % 0.10 (0.00-1.00) % Sodium 136 (132-145) mmol/L Potassium 3.6 (3.3-5.1) mmol/L Chloride 99 (94-110) mmol/L Total Carbon Dioxide 31 (21-34) mmol/L Anion Gap 9.6 (8.0-16.0) mmol/L BUN 16.3 (3.2-26.9) mg/dL Creatinine 0.85 (0.51-0.95) mg/dL Est GFR (MDRD) Af Amer > 60 (>60) Est GFR (MDRD) Non-Af > 60 (>60) BUN/Creatinine Ratio 19 (6-20) Glucose 89 (65-100) mg/dL Calcium 8.9 (8.2-10.0) mg/dL Total Bilirubin 0.30 (0.00-0.99) mg/dL AST 15 (3-39) U/L ALT 36 (13-66) U/L Alkaline Phosphatase 110 (54-112) U/L Troponin I High Sens 15 (0-51) ng/L Troponin I Hi Sens Del % Troponin I Hi Sens Abs Chng ng/L Total Protein 7.4 (6.1-8.2) g/dL Albumin 3.5 (3.4-5.0) g/dL Globulin 3.9 (1.5-4.5) g/dL Albumin/Globulin Ratio 0.9 L (1.1-2.5) Lipase 55 L (65-230) U/L Beta HCG, Quant 1 mIU/mL Urine Color leif (Yellow) Urine Appearance Clear (Clear) Urine pH 5 Ur Specific [place] 1.020 (1.015-1.025) Urine Protein 15 A (Negative) Urine Ketones Negative (Negative) Urine Blood 10 A (Negative) Urine Nitrite Negative (Negative) Urine Bilirubin Negative (Negative) Urine Urobilinogen Normal (Normal-1.0) mg/dL Ur Leukocyte Esterase Negative (Negative) Urine RBC None seen (0 - 2) /hpf Urine WBC 0-2 (0 - 6) /hpf Ur Epithelial Cells >15 (0 - 6) /lpf Urine Bacteria 1+ (0 - 1+) /hpf Urine Glucose Normal (Negative) 12/13/24 Range/Units 18:26 WBC (3.6-10.8) K/uL RBC (3.83-5.19) M/uL Hgb (11.1-13.7) g/dL Hct (33.4-46.0) % MCV (81.0-99.0) fL MCH (27.0-31.0) pg MCHC (33.0-37.0) g/dL RDW (11.5-14.5) % Plt Count (148-402) K/uL MPV (7.4-10.4) fL Neut % (Auto) (43.0-65.0) % Lymph % (Auto) (17.0-45.5) % [place] % (Auto) (5.5-11.7) % Eos % (Auto) (0.9-2.9) % Baso % (Auto) (0.2-1.0) % Abs Immat Gran (man) (0.00-0.10) K/uL Absolute Neuts (auto) (2.20-4.80) K/uL Absolute Lymphs (auto) (1.30-2.90) K/uL Absolute Monos (auto) (0.30-0.80) K/uL Absolute Eos (auto) (0.00-0.20) K/uL Absolute Basos (auto) (0.00-0.10) K/uL Immature Gran % (0.00-1.00) % Sodium (132-145) mmol/L Potassium (3.3-5.1) mmol/L Chloride (94-110) mmol/L Total Carbon Dioxide (21-34) mmol/L Anion Gap (8.0-16.0) mmol/L BUN (3.2-26.9) mg/dL Creatinine (0.51-0.95) mg/dL Est GFR (MDRD) Af Amer (>60) Est GFR (MDRD) Non-Af (>60) BUN/Creatinine Ratio (6-20) Glucose (65-100) mg/dL Calcium (8.2-10.0) mg/dL Total Bilirubin (0.00-0.99) mg/dL AST (3-39) U/L ALT (13-66) U/L Alkaline Phosphatase (54-112) U/L Troponin I High Sens 13 (0-51) ng/L Troponin I Hi Sens Del 15 % Troponin I Hi Sens Abs Chng 2 ng/L Total Protein (6.1-8.2) g/dL Albumin (3.4-5.0) g/dL Globulin (1.5-4.5) g/dL Albumin/Globulin Ratio (1.1-2.5) Lipase (65-230) U/L Beta HCG, Quant mIU/mL Urine Color (Yellow) Urine Appearance (Clear) Urine pH Ur Specific [place] (1.015-1.025) Urine Protein (Negative) Urine Ketones (Negative) Urine Blood (Negative) Urine Nitrite (Negative) Urine Bilirubin (Negative) Urine Urobilinogen (Normal-1.0) mg/dL Ur Leukocyte Esterase (Negative) Urine RBC (0 - 2) /hpf Urine WBC (0 - 6) /hpf Ur Epithelial Cells (0 - 6) /lpf Urine Bacteria (0 - 1+) /hpf Urine Glucose (Negative) Orders: Medications Discontinued Medications Hydromorphone HCl (Hydromorphone Hcl 1 Mg/Ml Injection) 0.5 mg IVP ONE ONE Stop: 12/13/24 20:14 Last Admin: 12/13/24 20:18 Dose: 0.5 mg Documented by: [email or web address] Ketorolac Tromethamine (Ketorolac Tromethamine 30 Mg/Ml Injection) 30 mg IVP STAT STA Stop: 12/13/24 18:19 Last Admin: 12/13/24 18:42 Dose: 30 mg Documented by: [email or web address] Morphine Sulfate (Morphine Sulfate 4 Mg/Ml Injection) 4 mg IVP STAT STA Stop: 12/13/24 16:40 Last Admin: 12/13/24 16:54 Dose: 4 mg Documented by: [email or web address] Ondansetron HCl (Ondansetron Hcl/Pf 4 Mg/2 Ml Injection) 4 mg IVP STAT STA Stop: 12/13/24 16:40 Last Admin: 12/13/24 16:52 Dose: 4 mg Documented by: [email or web address] - Radiology Data IMPRESSIONS Abdomen/Pelvis CT 12/13/24 17:15 IMPRESSION: 1. No acute intra-abdominal or pelvic process. 2. No evidence of nephrolithiasis or ureteral obstruction. 3. Normal appendix. 4. IUD within the uterus with appropriate orientation. 5. Simple appearing physiologic cyst involving the right ovary measuring up to 3.5 cm. No follow-up imaging recommended. - Medical Decision Making this patient was seen evaluated and treated by Dr. Perez, please refer to complete history and physical examination workup plan and treatment as well as disposition. He signed out with a CT scan ofthe abdomen and pelvis without contrast for me. CT showed no acute intra-abdominal pelvic abnormality he was ovarian cyst radiologist recommended no need for follow up. I reviewed her labsand urinalysis she was complaining of pain again her urinalysis negative for UTIlabs were unremarkable. She wasgiven Dilaudid 0.5 mg IV and discharged home with a close follow up with her primary care physician. The exact cause of the abdominal pain and flank pain is undetermined CT negative labs were unremark ableurinalysis negative. She does not have ovarian cyst 3.5 cm right adnexal area. No follow up additional testing was as recommended by radiologist as described above. Patient was being discharged home with close follow up with primary carephysician (NBA CAMPOS) ED Course: [ we will check labs. Patient will be given IV Zofran, IV morphine, we will check urinalysis, CT abdomen pelvis for further evaluation of patient's symptoms and patient to be re-evaluated once all her test results are back ] [ Patient does not smoke Prior external records reviewed: Outpatient records The patient has received a medical screening examination: within reasonable clinical confidence hasbeen stabilized in the ED. Imaging and EKG: Interpretation by radiology and independently interpreted by me. [ cba and electrolytes unremarkble, ua shows 10 blood and 15 proteins.] Ct abd pelvis pending Presenting clinical condition necessitates admission or observation consideration: [ No ] Independent Hx provided by: [ Patient/RN ] Med Rx considered but ultimately not given: [ Steroids/Antibiotics/Lasix ] Dx tests considered but ultimately not ordered: [ xray kub Although not an exhaustive list of Differential Diagnosis (though considered), patient?s HPI, PE, and other findings are not suggestive of: [ see chart ] Condition: Stable Disposition: 7 pm case signed out to Dr. Campos to f/up on pending tests and for patient reevaluation/appropriate disposition THIS DOCUMENT HAS BEEN CREATED USING VOICE RECOGNITION SOFTWARE AND MAY CONTAIN GRAMMATICAL, SYNTAX, AND TYPOGRAPHICAL ERRORS. (VIET MARIA) ED Discharge Summary - Discharge Data Clinical Impression: Abdominal pain, Flank pain, Right ovarian cyst Condition: Good Disposition: 01 HOME / SELF CARE Referrals: ARAM JORDAN MD [Primary Care Provider] - Additional Instructions: As discussed exact cause of your abdominal pain and flank pain is undetermined urine showed no definitive evidence of infection if she was taking antibiotics may mask infection and may not show up infection if he was taking antibiotics. CT scan showed no evidence of kidney stone or any obstruction of the urinary tract or any inflammation of the kidney. It was noncontrast study. Which is limited for evaluation kidneys. however there was no evidence of UTI on urinalysis. You do have ovarian cyst that could be causing abdominal pain. You need to follow up with your primary care physician for re-evaluation and to ensure complete resolution if any problems concerns return to ER. Time Seen by Provider: 12/13/24 16:14 Electronically Generated By:VIET MARIA MD Generated Date/Time: 12/13/24 1702 Electronically Signed By: 12/14/24 1522 12/13/242021 Co Signed Electronically By: Co Signed Date/Time: CC: ARAM JORDAN MD [facility]03-13-2025 Radiology Diagnostic study note [facility] RADIOLOGY [facility] [place] [address] [address] SCAN REPORT : [id number], Signed. Patient: JESSICA ACUNA : 1995 MR#: [id number] Acct:[id number] - EXAMINATION: CT OF THE ABDOMEN AND PELVIS WITHOUT CONTRAST 12/13/2024 5:38 pm TECHNIQUE: CT of the abdomen and pelvis was performed without the administration of intravenous contrast. Multiplanar reformatted images are provided for review. Automated exposure control, iterative reconstruction, and/or weight based adjustment of the mA/kV was utilized to reduce the radiation dose to as low as reasonably achievable. COMPARISON: None. HISTORY: ORDERING SYSTEM PROVIDED HISTORY: Left flank / lower abdominal pain FINDINGS: Lower Chest: Visualized portion of the lower chest demonstrates no acute abnormality. Organs: Liver and spleen appear normal in size without focal lesion. Clips are noted in the gallbladder fossa. Normal appearance of the pancreas. Normal adrenal glands and kidneys. No evidence of nephrolithiasis. No evidence of ureteral obstruction. GI/Bowel: There is no evidence of bowel obstruction. No evidence of abnormal bowel wall thickening or distension. Normal appendix. Normal TI. Prominent but nonenlarged lymph nodes in the central small bowel mesentery is a nonspecific finding. No suspicious mesenteric mass or bulky adenopathy. The transverse and left colon are decompressed. No abnormal fecal retention or inflammatory change. Pelvis: No free pelvic fluid. Urinary bladder appears normal. There is an IUD within the uterus with appropriate orientation. There is a simple appearing physiologic cyst involving the right ovary measuring up to 3.5 cm. No follow-up imaging is recommended. No free pelvic fluid. No pelvic or inguinal adenopathy. Peritoneum/Retroperitoneum: No retroperitoneal mass or adenopathy. Aorta is nonaneurysmal. Bones/Soft Tissues: No acute abnormality of the visualized osseous structures. CT/CT ABD/PELVIS W/O IMPRESSION: 1. No acute intra-abdominal or pelvic process. 2. No evidence of nephrolithiasis or ureteral obstruction. 3. Normal appendix. 4. IUD within the uterus with appropriate orientation. 5. Simple appearing physiologic cyst involving the right ovary measuring up to 3.5 cm. No follow-up imaging recommended. All CT scans at this facility use dose modulation, iterative reconstruction, and/or weight based dosing when appropriate to reduce radiation dose to as low as reasonably achievable. Electronically Signed by: YANET SIMMS MD Signed date/time: 12/13/24 0591 CC: VIET MARIA MD; ARAM JORDAN MD [facility] Work Phone: 1(739) 181-484711-27-2023 NoteHNO ID: [id number] Author: Elena Xie MD Service: ? Author Type: Physician Type: Progress Notes Filed: 08/29/2023 4:47 PM Note Text: BARIATRIC SURGERY NEW PATIENT CONSULTATION HISTORY AND PHYSICAL Date: August 29, 2023 Time: 4:44 PM Name: Jessica Acuna This visit was performed virtually. I have communicated my name and active licensure. The patient?s identity and physical location were verified at the time of this visit. Either the patient or their legal signs and displays sales representative has been informed of the risks and benefits of -- and alternatives to -- treatment through a remote evaluation and consents to proceed with the evaluation remotely. BMI Surgical Pathway Visit type: Bariatric Surgeon Visit This is a 28 year old female with morbid obesity (Body mass index is 51 kg/m?.) who presents to clinic for consideration of bariatric surgery. GERD, on PPI PRN PAST MEDICAL HISTORY: PAST MEDICAL HISTORY Diagnosis Date Acid reflux Asthma Environmental allergies receives weekly allergy shots Essential hypertension Obesity PAST SURGICAL HISTORY: PAST SURGICAL HISTORY Procedure Laterality Date L'SCOPE CHOLECYSTECTOMY 2020 PAST SURGICAL HISTORY OF Right 2019 release plantar fasciitis PAST SURGICAL HISTORY OF Left 2021 release plantar fasciitis PAST SURGICAL HISTORY OF Right 06/28/2023 Laproscopic labrum repair and impingement repair TONSILLECTOMY HX 10/03/2006 FAMILY HISTORY: FAMILY HISTORY Problem Relation Age of Onset Arthritis Mother Diabetes Mother Hypertension Mother Colon Cancer Father 60 Hypertension Father Hypertension Brother Hypertension Brother Colon Polyps Maternal Grandmother other (atrial fib) Maternal Grandmother Heart Failure Maternal Grandfather SOCIAL HISTORY: Social History Tobacco Use Smoking status: Never Smokeless tobacco: Never Vaping Use Vaping Use: Never used Substance Use Topics Alcohol use: Not Currently Drug use: Never MEDICATIONS: Prior to Admission Medications: pantoprazole DR (PROTONIX) 40 mg tablet Take 1 tablet by mouth once daily. oxyCODONE-acetaminophen (PERCOCET) 5-325 mg tablet TAKE ONE TABLET TWICE DAILY NEEDED FOR SEVERE pain NARCAN 4 mg/actuation nasal spray use ONE SPRAY into THE nose DIRECTED FOR a one time DOSE. call 911. if no response in TWO MINUTES use a new nasal SPRAY in other nostril. REPEAT UNTIL help arrives DULoxetine (CYMBALTA) 60 mg capsule Take 60 mg by mouth once daily. ALBUTEROL INHALATION Inhale as instructed. levonorgestrel (MIRENA) 20 mcg/24 hours (7 yrs) 52 mg IUD 1 Each by INTRAUTERINE route as directed. BREO ELLIPTA 200-25 mcg/dose inhaler INHALE 1 PUFF BY MOUTH ONCE DAILY ALLERGIES: ALLERGIES Allergen Reactions Penicillins Hives REVIEW OF SYSTEMS: GENERAL: Negative for malaise, significant weight loss and fever NECK: Negative for lumps, goiter, pain and significant neck swelling RESPIRATORY: Negative for cough, wheezing or shortness of breath. CARDIOVASCULAR: Negative for chest pain, leg swelling or palpitations. GI: Negative for abdominal discomfort, blood in stools or black stools or change in bowel habits : No history of dysuria, frequency or incontinence MUSCULOSKELETAL: Negative for joint pain or swelling, back pain or muscle pain. SKIN: Negative for lesions, rash, and itching. PSYCH: Negative for sleep disturbance, mood disorder and recent psychosocial stressors. ENDOCRINE: Negative for cold or heat intolerance, polyuria, polydipsia and goiter. PHYSICAL EXAM: Patient reported Ht 167.6 cm (5' 6) Wt (!) 143.3 kg (316 lb) LMP 09/26/2021 BMI 51.00 kg/m? General - Normal, healthy, cooperative, in no acute distress Able to interact verbally by video conference Psych - Orientation: normal to time place, person and situation Mood/Affect: Normal Head/Neuro - Normal size and shape, Facial appearance normal Pulmonary - respiratory effort normal Cardiovascular - patient describes extremities normal, warm, no cyanosis,no clubbing, and no edema Abdominal - Visible protrusions or hernias: No Skin - abnormal lesions not visualized Motor - patient seen sitting with normal appearing strength and coordination Assessment IMPRESSION: Jessica Acuna is a 28 year old female with the following diagnosis and co-morbidities: Body mass index is 51 kg/m?. Diagnosis noted as above, no additional diagnosis at this time. This patient does meet the criteria for a surgical weight loss procedure according to NIH guidelines. PLAN: The plan of treatment for Jessica Acuna is to continue with the consultations and tests ordered today in hopes of qualifying for pre-operative clearance for bariatric surgery. I have reviewed with this patient needed nutritional changes, post-operative recovery, and the potential for excess skin following surgery and subsequent weight loss. Risks of nicotine before and after bariat (more content not included)...[facility]11-27-2023 History of Present illness Narrative* Elena Xie MD - 08/29/2023 4:44 PM EST BARIATRIC SURGERY NEW PATIENT CONSULTATION HISTORY AND PHYSICAL Date: August 29, 2023 Time: 4:44 PM Name: Jessica Acuna This visit was performed virtually. I have communicated my name and active licensure. The patient sidentity and physical location were verified at the time of this visit. Either the patient or theirlegal signs and displays sales representative has been informed of the risks and benefits of -- and alternatives to -- treatment through a remote evaluation and consents to proceed with the evaluation remotely. BMI Surgical Pathway Visit type: Bariatric Surgeon Visit This is a 28 year old female with morbid obesity (Body mass index is 51 kg/m .) who presents to clinic for consideration of bariatric surgery. GERD, on PPI PRN PAST MEDICAL HISTORY: PAST MEDICAL HISTORY Diagnosis Date Acid reflux Asthma Environmental allergies receives weekly allergy shots Essential hypertension Obesity PAST SURGICAL HISTORY: PAST SURGICAL HISTORY Procedure Laterality Date L'SCOPE CHOLECYSTECTOMY 2020 PAST SURGICAL HISTORY OF Right 2018 release plantar fasciitis PAST SURGICAL HISTORY OF Left 2021 release plantar fasciitis PAST SURGICAL HISTORY OF Right 06/28/2023 Laproscopic labrum repair and impingement repair TONSILLECTOMY HX 10/03/2006 FAMILY HISTORY: FAMILY HISTORY Problem Relation Age of Onset Arthritis Mother Diabetes Mother Hypertension Mother Colon Cancer Father 60 Hypertension Father Hypertension Brother Hypertension Brother Colon Polyps Maternal Grandmother other (atrial fib) Maternal Grandmother Heart Failure Maternal Grandfather SOCIAL HISTORY: Social History Tobacco Use Smoking status: Never Smokeless tobacco: Never Vaping Use Vaping Use: Never used Substance Use Topics Alcohol use: Not Currently Drug use: Never MEDICATIONS: Prior to Admission Medications: pantoprazole DR (PROTONIX) 40 mg tablet Take 1 tablet by mouth once daily. oxyCODONE-acetaminophen (PERCOCET) 5-325 mg tablet TAKE ONE TABLET TWICE DAILY NEEDED FOR SEVEREpain NARCAN 4 mg/actuation nasal spray use ONE SPRAY into THE nose DIRECTED FOR a one time DOSE. [id number]. if no response in TWO MINUTES use a new nasal SPRAY in other nostril. REPEAT UNTIL help arrives DULoxetine (CYMBALTA) 60 mg capsule Take 60 mg by mouth once daily. ALBUTEROL INHALATION Inhale as instructed. levonorgestrel (MIRENA) 20 mcg/24 hours (7 yrs) 52 mg IUD 1 Each by INTRAUTERINE route as directed. BREO ELLIPTA 200-25 mcg/dose inhaler INHALE 1 PUFF BY MOUTH ONCE DAILY ALLERGIES: ALLERGIES Allergen Reactions Penicillins Hives REVIEW OF SYSTEMS: GENERAL: Negative for malaise, significant weight loss and fever NECK: Negative for lumps, goiter, pain and significant neck swelling RESPIRATORY: Negative for cough, wheezing or shortness of breath. CARDIOVASCULAR: Negative for chest pain, leg swelling or palpitations. GI: Negative for abdominal discomfort, blood in stools or black stools or change in bowel habits : No history of dysuria, frequency or incontinence MUSCULOSKELETAL: Negative for joint pain or swelling, back pain or muscle pain. SKIN: Negative for lesions, rash, and itching. PSYCH: Negative for sleep disturbance, mood disorder and recent psychosocial stressors. ENDOCRINE: Negative for cold or heat intolerance, polyuria, polydipsia and goiter. PHYSICAL EXAM: Patient reported Ht 167.6 cm (5' 6) Wt (!) 143.3 kg (316 lb) LMP 09/26/2021 BMI 51.00 kg/m General - Normal, healthy, cooperative, in no acute distress Able to interact verbally by video conference Psych - Orientation: normal to time place, person and situation Mood/Affect: Normal Head/Neuro - Normal size and shape, Facial appearance normal Pulmonary - respiratory effort normal Cardiovascular - patient describes extremities normal, warm, no cyanosis,no clubbing, and no edema Abdominal - Visible protrusions or hernias: No Skin - abnormal lesions not visualized Motor - patient seen sitting with normal appearing strength and coordination Assessment IMPRESSION: Jessica Acuna is a 28 year old female with the following diagnosis and co-morbidities: Body mass index is 51 kg/m . Diagnosis noted as above, no additional diagnosis at this time. This patient does meet the criteria for a surgical weight loss procedure according to NIH guidelines. PLAN: The plan of treatment for Jessica Acuna is to continue with the consultations and tests ordered today in hopes of qualifying for pre-operative clearance for bariatric surgery. I have reviewed with this patient needed nutritional changes, post-operative recovery, and the potential for excess skin following surgery and subsequent weight loss. Risks of nicotine before and after bariatric surgery and risks of postoperative adverse events (post-operative and beyond) were alsodiscussed with patient. Furthermore, information regarding probable and potential postoperative complications, dietary and medical postoperative limitations, and potential cosmetic sequelae has been given to patient. Health risks associated with obesity, alternatives to surgery, alternative forms of surgery, pre-surgical strategies to reduce risks, potential psychological adjustment issues, post-s urgical commitment (aftercare program) were also explained. All questions were answered. Patient understood the risks and benefits and agreed to proceed with surgery. Patient is interested in: Faheem-En-Y Gastric Bypass I spent a total of 60 minutes on the date of the service which included preparing to see the patient, [id number] patient care, completing clinical documentation, obtaining and/or reviewing separately obtained history, and counseling and educating the patient/family/caregiver. Elena Xie MD Advanced Laparoscopic and Bariatric Surgery documented in this encounter[facility]11-[facility] Instructions* Patient Instructions* Tiffanie Schmidt APRN.LAURIE - 08/09/2023 11:11 AM EST See PCP - Elevated BP Cymbalta - bupropion will help you control cravings but your BP has to be well- controlled. Fluoxetine and sertraline can be weight variable in some people. documented in this encounterGreen Cross Hospital11-07-2023 NoteHNO ID: [id number] Author: Tiffanie Schmidt APRN.CNP Service: ? Author Type: Nurse Practitioner Type: Progress Notes Filed: 08/09/2023 11:46 AM Note Text: Supervisor Shipping Room offered: Patient declines. Accompanied by mother. Jessica is a 28 year old who presents for an annual gynecologic exam with complaints, recurrent ovarian cyst pain . 06/15/2023 CT pre-op hip surgery with incidental finding of prominent right ovarian follicles. She was told to follow-up with gynecology. Vaginal discharge - noticed after wiping. Menses: no menses IUD. Thick clear mucous, sometimes dark brown like old blood. Denies odor, irritation or itching. Contraception: MIrena IUD 11/11/2021 HPV vaccine: No Last Pap: normal unsure of year HPV: N/A History of abnormal pap: No Last mammogram: never Sexually active: Yes History of STDS: None Patient concerns for STD exposure: No. Time with current partner: 3 years History of ovarian cyst: Yes, Pain with intercourse: No Postcoital bleeding: No OB History T0 L0 SAB0 IAB0 Ectopic0 Multiple0 Live Births0 Staff Nurse Midwife History LMP: 09/26/2021, IUD Age at Menarche: Age at First : Age at Menopause: Staff Nurse Midwife History Comments: Sexual Activity: Yes; Male Contraception: I.U.D. PAST MEDICAL HISTORY Diagnosis Date Acid reflux Asthma Environmental allergies receives weekly allergy shots Essential hypertension PAST SURGICAL HISTORY Procedure Laterality Date L'SCOPE CHOLECYSTECTOMY 2020 PAST SURGICAL HISTORY OF Right 2019 release plantar fasciitis PAST SURGICAL HISTORY OF Left 2021 release plantar fasciitis TONSILLECTOMY HX 10/03/2006 FAMILY HISTORY Problem Relation Age of Onset Arthritis Mother Diabetes Mother Hypertension Mother Colon Cancer Father 60 Hypertension Father Hypertension Brother Hypertension Brother Colon Polyps Maternal Grandmother other (atrial fib) Maternal Grandmother Heart Failure Maternal Grandfather SOCIAL HISTORY Social History Tobacco Use Smoking status: Never Smokeless tobacco: Never Vaping Use Vaping Use: Never used Substance Use Topics Alcohol use: Not Currently Drug use: Never REVIEW OF SYSTEMS Abdomen: No abdominal pain, nausea, vomiting, diarrhea, or constipation. No bloating, early satiety, indigestion, or increased flatulence. Bladder: No dysuria, gross hematuria, urinary frequency, urinary urgency, or incontinence. Breast: No breast lumps, nipple d/c, overlying skin changes, redness or skin retraction. Allergies and current medication updated:Yes EXAM: BP 128/98 Ht 5' 6 (1.68m) Wt 316 lb (143.3kg) LMP 09/26/2021 BMI 51.03 kg/(m2). History of hypertension but does not take prescribed medication. GENERAL: pleasant, female in no apparent distress HEENT: Normocephalic, atraumatic, mucus membranes moist, and no lesions NECK: Supple, full range of motion, no adenopathy, and thyroid normal DERMATOLOGY: Normal, without lesions, non-icteric, and hirsutism to chin BREAST: soft, non-tender, symmetric, no dominant mass, normal nipple-areolar complex, no lymphadenopathy, and no nipple discharge CHEST: Normal inspiratory effort ABDOMEN: soft and non-tender PELVIC: external genitalia normal, normal Bartholin's glands, urethra, Lecompte's glands, no vulvar lesions, no cervical lesions, good vaginal support, physiologic discharge present, normal appearing perineal body and perianal region, IUD strings visible BIMANUAL: uterus normal size, shape and consistency, no adnexal masses, and non-tender RECTOVAGINAL: deferred. NEURO: alert and oriented x3,exam grossly non-focal EXTREMITIES: normal ASSESSMENT/PLAN: 1) Health maintenance: Pap done with reflex HPV. Nutrition, exercise and routine health maintenance exams reviewed. History of ovarian cysts - CT 06/2023 prominent follicles. Reviewed ovarian cysts and that Mirena IUD can make cysts more prominent. 2. Class 3 severe obesity with serious comorbidity and body mass index (BMI) of 50.0 to 59.9 in adult, unspecified obesity type (HCC) - ICD9: 278.01, V85.43, ICD10: E66.01, Z68.43 Weight increasing Lengthy discussion regarding weight with pt permission. She is interested in metabolic surgery - consult placed. - [facility] 3) Contraception: IUD. Contraceptive options reviewed and information provided. 4) STD screening: Declined STD check. 5) Follow up one year or sooner as needed Tiffanie Schmidt APRN.[facility]11-07-2023 History of Present illness Narrative* Tiffanie Schmidt APRN.WOOD INSPECTOR - 08/09/2023 10:18 AM EST Supervisor Shipping Room offered: Patient declines. Accompanied by mother. Jessica is a 28 year old who presents for an annual gynecologic exam with complaints, recurrent ovarian cyst pain . 06/15/2023 CT pre-op hip surgery with incidental finding of prominent right ovarian follicles. She was told to follow-up with gynecology. Vaginal discharge - noticed after wiping. Menses: no menses IUD. Thick clear mucous, sometimes dark brown like old blood. Denies odor, irritation or itching. Contraception: MIrena IUD 11/11/2021 HPV vaccine: No Last Pap: normal unsure of year HPV: N/A History of abnormal pap: No Last mammogram: never Sexually active: Yes History of STDS: None Patient concerns for STD exposure: No. Time with current partner: 3 years History of ovarian cyst: Yes, Pain with intercourse: No Postcoital bleeding: No OB History T0 L0 SAB0 IAB0 Ectopic0 Multiple0 Live Births0 Staff Nurse Midwife History LMP: 09/26/2021, IUD Age at Menarche: Age at First : Age at Menopause: Staff Nurse Midwife History Comments: Sexual Activity: Yes; Male Contraception: I.U.D. PAST MEDICAL HISTORY Diagnosis Date Acid reflux Asthma Environmental allergies receives weekly allergy shots Essential hypertension PAST SURGICAL HISTORY Procedure Laterality Date L'SCOPE CHOLECYSTECTOMY 2020 PAST SURGICAL HISTORY OF Right 2018 release plantar fasciitis PAST SURGICAL HISTORY OF Left 2021 release plantar fasciitis TONSILLECTOMY HX 10/03/2006 FAMILY HISTORY Problem Relation Age of Onset Arthritis Mother Diabetes Mother Hypertension Mother Colon Cancer Father 60 Hypertension Father Hypertension Brother Hypertension Brother Colon Polyps Maternal Grandmother other (atrial fib) Maternal Grandmother Heart Failure Maternal Grandfather SOCIAL HISTORY Social History Tobacco Use Smoking status: Never Smokeless tobacco: Never Vaping Use Vaping Use: Never used Substance Use Topics Alcohol use: Not Currently Drug use: Never REVIEW OF SYSTEMS Abdomen: No abdominal pain, nausea, vomiting, diarrhea, or constipation. No bloating, early satiety, indigestion, or increased flatulence. Bladder: No dysuria, gross hematuria, urinary frequency, urinary urgency, or incontinence. Breast: No breast lumps, nipple d/c, overlying skin changes, redness or skin retraction. Allergies and current medication updated:Yes EXAM: BP 128/98 Ht 5' 6 (1.68m) Wt 316 lb (143.3kg) LMP 09/26/2021 BMI 51.03 kg/(m^2). History of hypertension but does not take prescribed medication. GENERAL: pleasant, female in no apparent distress HEENT: Normocephalic, atraumatic, mucus membranes moist, and no lesions NECK: Supple, full range of motion, no adenopathy, and thyroid normal DERMATOLOGY: Normal, without lesions, non-icteric, and hirsutism to chin BREAST: soft, non-tender, symmetric, no dominant mass, normal nipple-areolar complex, no lymphadenopathy, and no nipple discharge CHEST: Normal inspiratory effort ABDOMEN: soft and non-tender PELVIC: external genitalia normal, normal Bartholin's glands, urethra, Lecompte's glands, no vulvar lesions, no cervical lesions, good vaginal support, physiologic discharge present, normal appearing perineal body and perianal region, IUD strings visible BIMANUAL: uterus normal size, shape and consistency, no adnexal masses, and non-tender RECTOVAGINAL: deferred. NEURO: alert and oriented x3,exam grossly non-focal EXTREMITIES: normal ASSESSMENT/PLAN: 1) Health maintenance: Pap done with reflex HPV. Nutrition, exercise and routine health maintenance exams reviewed. History of ovarian cysts - CT 06/2023 prominent follicles. Reviewed ovarian cysts and that Mirena IUD can make cysts more prominent. 2. Class 3 severe obesity with serious comorbidity and body mass index (BMI) of 50.0 to 59.9 in adult, unspecified obesity type (HCC) - ICD9: 278.01, V85.43, ICD10: E66.01, Z68.43 Weight increasing Lengthy discussion regarding weight with pt permission. She is interested in metabolic surgery - consult placed. - [facility] 3) Contraception: IUD. Contraceptive options reviewed and information provided. 4) STD screening: Declined STD check. 5) Follow up one year or sooner as needed Tiffanie Schmidt APRN.WOOD INSPECTOR documented in this encounterGreen [facility]10-16-2023 NoteHNO ID: [id number] Author: Tia Silver RDMS Service: ? Author Type: Emotionally Impaired Teacher Type: Progress Notes Filed: 07/18/2023 1:35 PM Note Text: Radiology Service Progress Note PATIENT NAME: Jessica Acuna DATE OF SERVICE: July 18, 2023 TIME: 1:35 PM PATIENT IDENTITY VERIFICATION COMPLETED USING TWO (2) IDENTIFIERS: Name and Date of confirmed by patient verbally. FALL SCREENING: Has the patient had 2 falls in the last year or 1 fall with injury or currently using an Ambulatory Assistive Device (Walker, Cane, Wheelchair, Crutches, etc.)? No PATIENT GENDER DATA: Female. status: : No status: NO. PATIENT RELEVANT IMPLANT DATA REVIEWED: Not Applicable RADIOLOGY DEPARTMENT: Ultrasound PERIPHERAL IV DATA: Not applicable SIGNED BY: Tia Silver RDMS RVT July 18, 2023 1:35 [facility]10-11-2023 History of Present illness Narrative* Sonu Griffin, PAC - 07/13/2023 11:00 AM EDT Chief Complaint Patient presents with Right Hip - Post Op Visit 2w 1d PO R hip scope w/ labral repair (DOS: 06/28/23). Pt states that she feels pretty good. Her moms dog jumped on her leg a week ago and was sore for a couple days, but feels okay now. PT 1x/wk. No new injuries to the area. Had a touch of pneumonia and is on an antibiotic and prednisone. CC: S/P right hip arthroscopy Subjective: Pt presents for 2 week follow up of right hip arthroscopy. Pt states she is doing well.They are taking oxycodone, apap for pain medication at this time. she continues eliquis and Meloxicam as prescribed. she reports using crutches for ambulation. Pt has started Physical therapy and is doing well. They deny any fever, chills, chest pain, shortness of breath, change in bowel or bladderhabits. Objective: Pt is alert and oriented x 3. she is well nourished, well developed in no apparent distress. she has three small incisions on the lateral aspect of the right hip. The incisions are healingnicely. There is no evidence of erythema or edema around the incisions. There is no drainage from the incisions. Pt is ambulating around the room using crutches. They have no calf tenderness in she lower extremities, Negative Homans sign. Images: No images were taken at this visit. He/She will have XOA at his/her six week follow up appointment. Assessment/Plan: S/P right hip arthroscopy 2 weeks. she will continue PT per the labral repair protocol. Cautioned careful activity progression to protect the healing hip. Continue ice and compression. Continue Eliquis for 3 weeks post operatively and Meloxicam for 6 weeks post operatively with GI precautions. Continues with acetaminophen as prescribed. Jessica Acuna had sutures removed today. Iinstructed pt on not submerging the incisions in water until they are 4 weeks post op. Pt should also not use any lotions or creams until that point. she should continue to monitor the incisions for signs of infection such as increasing redness, swelling or drainage around the incision, increasing pain, fever, chills, loss of function of the leg or worse. Should any of these symptoms begin pt is instructed to call the office. Reviewed signs of blood clots including CP, SOB and calf pain and to contact us or seek medical attention should these symptoms occur. Pt voices understanding and agreement with the above plan. Continued weaning of narcotics discussed. We will see Jessica Acuna back for she six week follow up. As always, the pt may call the office with any further questions or concerns. Sonu Griffin PA-C documented in this encounterOSMer[facility]09-28[facility] Telephone encounter Note* Telephone Encounter - Kendra Pfeiffer LPN - 06/30/2023 3:43 PM EDT Pia pt. She has been using oxycodone and Toradol but only using one of these medications every 5 hours, alternating. Discussed alternating each medication every 3 hours. At 430 she is due for he next dose. She will use Toradol at that time. At 730 she will dose with Oxycodone. She will continue rotating these medications every 3 hours through the night to give her better coverage with the pain control. Also discussed increasing the times that she is icing each day. Discussed using ice for 20 minutes at a time. Pt verbalized understanding and is pleased with this plan. She will contact us tomorrow if this regimen is not helpful. [facility]09-28-2023 Miscellaneous Notes* Telephone Encounter - Kendra Pfeiffer LPN - 06/30/2023 3:43 PM EDT Pia pt. She has been using oxycodone and Toradol but only using one of these medications every 5 hours, alternating. Discussed alternating each medication every 3 hours. At 430 she is due for he next dose. She will use Toradol at that time. At 730 she will dose with Oxycodone. She will continue rotating these medications every 3 hours through the night to give her better coverage with the pain control. Also discussed increasing the times that she is icing each day. Discussed using ice for 20 minutes at a time. Pt verbalized understanding and is pleased with this plan. She will contact us tomorrow if this regimen is not helpful. * Telephone Encounter - Chelsie Tena - 06/30/2023 11:52 AM EDT Patient had hip surgery on 06/[address] Yanet Carolina. Patient has been on the same pain medicine for a couple years and she says it is not working. Patient says she cannot sleep due to pain and throbbing. Please call her to advise at [phone]. * Telephone Encounter - Yanet Carolina MD - 06/30/2023 11:44 AM EDT Called patient for postop checkup, no one was available so I left a generic voice mail for them to call the office back when convenient, if they have any questions or concerns. Yanet Carolina MD documented in this encounterWVUMedicine [facility]09-28-2023 Telephone encounter Note* Telephone Encounter - Chelsie Tena - 06/30/2023 11:52 AM EDT Patient had hip surgery on 06/[address] Yanet Carolina. Patient has been on the same pain medicine for a couple years and she says it is not working. Patient says she cannot sleep due to pain and throbbing. Please call her to advise at [phone]. [facility]09-28-2023 Telephone encounter Note* Telephone Encounter - Yanet Carolina MD - 06/30/2023 11:44 AM EDT Called patient for postop checkup, no one was available so I left a generic voice mail for them to call the office back when convenient, if they have any questions or concerns. Yanet Carolina MD [facility]09-27-2023 Note* Addendum Note - Sonu Griffin [facility] - 06/29/2023 11:14 AM EDTAddended by: SONU GRIFFIN on: 06/29/2023 11:14 AM Modules accepted: Orders, Level of Service [facility]09-27-2023 Note* Addendum Note - Sonu Griffin [facility] - 06/29/2023 11:14 AM EDTAddended by: SONU GRIFFIN on: 06/29/2023 11:14 AM Modules accepted: Orders, Level of Service [facility]09-27-2023 Note* Addendum Note - Sonu Griffin [facility] - 06/29/2023 11:14 AM EDTAddended by: SONU GRIFFIN on: 06/29/2023 11:14 AM Modules accepted: Orders, Level of Service [facility]09-27-2023 Note* Addendum Note - Sonu Griffin [facility] - 06/29/2023 11:14 AM EDTAddended by: SONU GRIFFIN on: 06/29/2023 11:14 AM Modules accepted: Orders, Level of Service [facility]09-27-2023 Note* Addendum Note - Sonu Griffin [facility] - 06/29/2023 11:14 AM EDTAddended by: SONU GRIFFIN on: 06/29/2023 11:14 AM Modules accepted: Orders, Level of Service [facility]09-27-2023 Miscellaneous Notes* Addendum Note - NELLA Thorpe - 06/29/2023 11:14 AM EDTAddended by: SONU GRIFFIN on: 06/29/2023 11:14 AM Modules accepted: Orders, Level of Service * Telephone Encounter - NELLA Thorpe - 06/29/2023 11:12 AM EDT Discussed pain control being an issue. Advised stopping mobic, using toradol for 3 days as prescribed with food and water. Continued APAP as prescribed and continued use of oxycodone 1-2 tabs every 4-6 hours as needed. RICE. All questions answered and script sent to pharmacy Sonu Griffin PA-C * Telephone Encounter - Mattie Dias - 06/29/2023 10:26 AM EDT Patient of Dr. Carolina is calling in regards to being in a lot pain from her surgery yesterday. Patient is wanting a nurse to give her a call back. She said the pain medication she is currently taking isn't helping and would like some advise on what she should do. Please advise. [facility] this [facility]OS[facility] Telephone encounter Note* Telephone Encounter - NELLA Thorpe - 06/29/2023 11:12 AM EDT Discussed pain control being an issue. Advised stopping mobic, using toradol for 3 days as prescribed with food and water. Continued APAP as prescribed and continued use of oxycodone 1-2 tabs every 4-6 hours as needed. RICE. All questions answered and script sent to pharmacy Sonu Griffin PA-C [facility]09-27-2023 Telephone encounter Note* Telephone Encounter - Mattie Dias - 06/29/2023 10:26 AM EDT Patient of Dr. Carolina is calling in regards to being in a lot pain from her surgery yesterday. Patient is wanting a nurse to give her a call back. She said the pain medication she is currently taking isn't helping and would like some advise on what she should do. Please advise. [facility]09-26-2023 Miscellaneous Notes* Nursing Notes - Júnior Dickinson RN - 06/28/2023 12:35 PM EDT AVS reviewed with pt and family. Questions answered. * Nursing Notes - Júnior Dickinson RN - 06/28/2023 11:30 AM EDT Oral and nasal airway removed. Pt alert follows commands. * Op Note - Yanet Carolina MD - 06/28/2023 11:05 AM EDT OP NOTE - RIGHT HIP ARTHROSCOPY Preop Diagnosis: 1. Right hip Femoroacetabular impingement, cam 2. Right hip Labral tear Postop Diagnosis: 1. Right hip Femoroacetabular impingement, cam anterior lateral neck 2. Right hip chondrolabral delamination and delaminating tear of labral base Procedure: 1. Right hip Arthroscopic osteoplasty femoral neck 43120 2. Right hip Arthroscopic labral repair 19213 3. Right hip Arthroscopic capsular closure 4. Right hip Flouroscopy [id number] Surgeon: Yanet Carolina MD Javascript Engineer: NELLA Brady served as first cook, the assistance was necessary to perform safe manipulation of the operative extremity and positioning of the leg for anchor insertion. No qualified residents were available to assist with the procedure. Anesthesia: GETA Surgical Indication: The patient is an active 28-year-old female, with right hip pain increasing over the past 4 years or more. The patient had findings on history, exam, and imaging consistent with femoroacetabular impingment, anterior lateral cam area noted on preop 3d CT scan -- with possible labral pathology - as noted on preop MRI and no advanced degenerative changes noted. The patient's symptoms were not controlled with conservative measures including trials of PT / rehab modalities, restand activity modification, and medications. The patient was limited in their ability to be physically active due to the hip pain. The patient was therefore interested in and deemed to be an appropriate candidate for operative intervention with hip arthroscopy. After discussing the pros and cons of treatment options and risks and benefits of surgical intervention with the patient, the patient elected to proceed with surgery with the understanding of the risks of infection, stiff joint, injury tonerve or blood vessel, numbness over operative foot or groin or thigh, blood clot, heart/lung or anesthesia complications, and continued hip pain or future hip arthritis. Findings: anterior lateral neck cam lesion, reduced offset consistent with OLIVIA, reduced offset along anterior lateral neck, with a high grade delaminating type labral tear from 12 to 2 on the clock with adjacent 0.5 x 2 cm chondral softening and fraying ICRS 1 to 2 - no significant chondral damage on remainder femoral head or remainder of acetabulum, no loose body, there was notable anterior superior hip joint and supra-labral synovitis and labral bruising / erythema and mild synovitis in acetabular fossa. The ligamentum teres was intact. EBL: Minimal Postop Plan: Discharge home today. Partial WB RLE, for first 2 weeks. Begin passive ROM starting tonight and formal outpatient physical therapy per protocol in next 5 days. Follow the standard labralrepair protocol. Follow-up in clinic in 2 weeks for wound check and in 6 weeks with x-rays. Special Considerations: Flouroscopy was necessary for the procedure to confirm portal positions as well as to confirm the adequacy of the osteoplasty. Procedure: The operative site was marked in preop holding by the attending surgeon with the full participation of the patient. The patient was taken to the operating room. On entering the OR a sign in was held with the anesthesia, nursing and surgical teams all present and participating and confirming the operative site and plan. The patient underwent a GETA by the [facility] Anesthesia service. The patient was placed supine on a Tena and Nephew traction table and both feet were placed in well-paddedtraction boots. A [employer] Guardian Postless system was utilized. A traction check was performed to confirm adequate traction for the procedure using a fluoroscopic unit. Traction was then released. The surgical leg was prepped and draped in standard sterile fashion. Antibiotics consisting of clindamycin 900 mg IV - were given within 60 minutes of incision. A surgical timeout was performed prior to incision - and nursing, anesthesia and surgical teams were all present and all parties agreed on the planned operative site and procedure. The hip was distracted approximately one centimeter. Using fluoroscopic guidance, the hip capsule, TFL, and portal sites were injected with 15 mg Toradol, 10 mg morphine and 30 ml of 0.5% Ropivacainefor postop pain control. The bony landmarks including greater trochanter and ASIS were palpated easily. Standard anterolateral and mid-anterior hip arthroscopic portals were made using a spinal needle, nitinol wire and arthroscopic hip cannulas. Flouroscopy was used throughout the process to confirm appropriate and safe portal placement. 5.0 mm hip cannulas were placed in both portals. The camerawas moved from the AL portal to MA portal. We used a switching stick and slotted cannula to introduce an arthroscopic grayling blade knife into the AL portal. An interportal capsulotomy was then created with the arthroscopic knife. We then switched the camera to the AL portal and with a identical technique brought the arthroscopic knife into the MA portal and completed the interportal cut. A diagnostic scope was then performed using a probe to gently probe all chondrolabral surfaces. Findings were as noted above. We carefully probed the labrum and it displaced into the joint at the 12 to 2 on the clock consistent with a medium to higher grade labral delamination of the labral base in this area. The labral tissue overall looked healthy to attempt repair. Shaver and cautery were used to perfor m a limited synovectomy focusing on inflamed, hypertrophic areas of synovium above the labrum on the rim to improve visualization. Shaver was used to clean up frayed portions of labrum. The bone at the anchor insertion site was then freshened with bone sivlana. We used the DALA portal to drill holes for the anchors at the 1230 and 130 clock positions respectively. An arthroscopic cannula was placed in the mid anterior portal to aid in suture management. Each drill hole was probed with a nitinol wire to confirm that no perforation of the extra- articular cortex occurred - prior to insertion of theanchor. The labrum was sutured with 1230 and 130 on the clock with 2 Pivot Nanotack 1.4 mm hip suture anchors (passed under the labral tissue and pulled back over the labrum with Pivot Nanopass suture passing device) to recreate an labral-cartilage seal on the femoral head. After placing the anchors and passing and tying the suture with an arthroscopic sliding knot (SMC) locked with 2 half hitches, we then probed the labrum and it was now found to be solidly attached to the rim and did not displace into the joint. Traction was released. Total traction time was for the entire case less than 40minutes. After release of traction, the labrum sat anatomically on the femoral head and created a suction seal. At this point, the hip was taken off of traction, and the femoral head reduced into the acetabulum.The anterior head/neck junction and femoral neck was identified. We visualized the lateral vessels which appeared fully intact and the medial ligament of Weibrecht (with flexion and external rotation). We next created an accessory distal anterolateral portal -- about 2 cm distal and slightly anterior to the AL portal. From the DALA and MA portals we used an arthroscopic knife and electrocautery to create a longitudinal capsulotomy approximately 2 cm down the femoral neck at the mid anterior aspect - connecting with the prior interportal cut, creating a T shaped capsulotomy which when combined with internal and external rotation and flexion, allowed for excellent visualization of the femoral neck from medial to lateral positions. Using a Merlene Slingshot device, a traction suture was placed in the medial leaflet of the capsular cut to allow traction to be applied to the medial capsuleand thereby improve visualization for the osteoplasty. The CAM lesion was exposed and an osteoplasty of the femoral neck was performed from the anterior lateral portion of the neck, stopping short ofascending vessels in the lateral retinacular fold. Flouroscopy was used to confirm adequate bony debridement, with particular attention paid to the Soliman lateral view. Soliman views were made prior to resection and were compared with views after resection to ensure that the cam was adequately resected. Finally, the T-shaped capsulotomy was repaired with 5 # 2 Vicryl simple stitches that were passed through medial/lateral and proximal / distal limbs of the capsulotomy with a [employer] Slingshot device. The slingshot device was first passed through one leaflet of capsule and then punctured through the opposing leaflet to retrieve the suture and pull it through. #2 Vicryl suture through both leaflets of capsule. Each suture was tied with sliding (SMC) arthroscopic knot and cut with suture cutter. The suture passing was performed 5 times (2 sutures in medial/lateral and 3 in the proximal / distallimbs of the capsulotomy) to ensure tight, anatomic capsule closure. The wounds were closed with inverted 2-0 Vicryl and simple nylon sutures. Final sponge and needle counts were correct. A dressing consisting of 4x4, ABD, tegaderm were applied. A cryocuff will be used postop. Sign out was held. Patient was extubated and taken to PACU in stable condition. Yanet Carolina MD * Brief Op Note - Yanet Carolina MD - 06/28/2023 11:04 AM EDT Jessica Samira ([id number]) PRE OPERATIVE DIAGNOSIS Right hip impingement syndrome [M25.851] POST OPERATIVE DIAGNOSIS Post-Op Diagnosis Codes: * Right hip impingement syndrome [M25.851] PROCEDURE PERFORMED Procedure(s) (LRB): Right hip arthroscopy (Right) ARTHROSCOPY HIP W/ LABRAL REPAIR (Right) PRIMARY CLOSURE Yes INTRAOPERATIVE FINDINGS cam lesion, labral tear SURGEON Surgeon(s) and Role: * Yanet Carolina MD - Primary ANESTHESIOLOGIST Anesthesiologist: Raymond Archer MD DENTAL SECRETARY: Crissy Moraes APRN-DENTAL SECRETARY SURGICAL STAFF Pickling Solution Maker: Barbara Aguirre; Rosalia Hagen RN Physician Javascript Engineer: Sonu Griffin, PAC Scrub Person: Raul Riley Press Worker Helper: Donnie Lan COMPLICATIONS None ESTIMATED BLOOD LOSS Minimal SPECIMENS No specimen sent * No specimens in log * Yanet Carolina MD June 28, 2023 11:04 AM [facility]* Nursing Notes - Júnior Dickinson RN - 06/28/2023 12:35 PM EDT AVS reviewed with pt and family. Questions answered. [facility]09-26-2023 Nurse Note* Nursing Notes - Júnior Dickinson RN - 06/28/2023 11:30 AM EDT Oral and nasal airway removed. Pt alert follows commands. [facility]09-26-2023 Hospital Discharge instructions* Discharge Instructions* NELLA Thorpe - 06/28/2023 11:25 AM EDT Images from the original note were not included. Home Care After Ambulatory Surgery The following instructions will help you care for yourself, or be cared for upon your return home today. These are guidelines for your care right after surgery only. Diet: Advance as tolerated. Activity: Please follow weight bearing directions from the hospital. You should remain partial weight bearingwith crutches until seen at your first follow up visit in the office. Wound Care and Hygiene: Please keep your incisions clean and dry. You may change your dressing daily or more frequently if needed beginning tomorrow. Please do not use any alcohol, lotions or creams on the incisions including neosporin. Once your incisions have stopped draining you do not need to keep them covered. You may shower the day after surgery. You may shower without them covered but do not use soaps directly onthe incisions until after your sutures have been removed at your two week follow up appointment. Please do not submerge your incisions in water including in a bathtub, swimming pool or hot tub. Anesthesia Precautions & Expectations: After anesthesia, rest for [address], drink alcoholic beverages or make any important decisions during this time. General anesthesia may cause a sore throat, jaw discomfort or muscle aches. These symptoms can last for one or two days. What to Expect after surgery: Mild to moderate discomfort Call your Doctor for: Signs of infection such as fever, chills, increasing pain, green or yellow discharge from your wound, foul smell from your wound, increasing redness or swelling around the incisions, loss of functionof your leg or worse. Signs of blood clot such as calf pain that does not go away, shortness of breath or chest pain. Your first and second follow up appointments with Dr. Carolina should already be scheduled. If not, please call the office. Other Instructions: Medications: (All of your medications were sent electronically to your pharmacy) Local anesthetics were put into your incision after surgery. It is not uncommon for patients to encounter more pain on the first or second day after surgery. This is the time when swelling peaks. Taking pain medications before bedtime will assist in sleeping. It is important not to drink or drive while taking narcotic pain medication. You should resume your normal medications (excluding Oral Contraceptives, Estrogen or Testosterone products) the day after surgery. Please take the following medications regardless of your pain level: Anti-Inflammatory: Meloxicam 15mg, Please take 1 tablet of Mobic daily for 6 weeks unless it causes upset stomach. If you are unable to take Mobic due to stomach upset, please call the office and we can prescribe a different anti-inflammatory medication. If you are taking Mobic, please do not take any additional NSAIDS such as Ibuprofen (Advil) or Naproxen (Aleve). DVT Prophylaxis: This medication is used to minimize the risk of blood clots. Eliquis 2.5 mg 1 tablet by mouth 2 times daily Take 1st dose on the evening of surgery If you are asked to pay a large sum of money and are unable to purchase this medication, please contact our office as we may be able to provide an alternative or help obtain this medication. Pain Medication: Acetaminophen 650 mg. Please take 1 tablet every 6-8 hours to aid in alleviation of pain. Please take these medications as needed: Pain Medication: Please do not drink alcohol, drive a car or operate machinery while taking narcotic pain medications. Oxycodone 5 mg 1-2 tablets by mouth every 6 hours as needed for moderate to severe pain If you should develop constipation you may use Senokot, two tablets twice daily until you have a bowel movement. If you are still unable to have a bowel movement while taking Senokot, please call ouroffice. Physical Therapy: You should begin Physical therapy 3-5 days after surgery. Other: You should be doing your pendulum exercises lying down at home regularly to avoid a stiff hip. You have been given an iceman to apply to your hip for added swelling benefits. Please apply this to your hip regularly, twenty minutes on twenty minutes off, throughout the day. You should have a barrier, such as compression shorts, between your skin and the iceman. This unit is yours to keep. You have been given an [employer]KO Bandage to apply to the hip. This will help decrease swelling after surgery. Sexual Activity: Many people have concerns about having sex after having hip surgery and wanting to protect the hip.Men are often able to return to sexual activity 2 weeks after surgery and women about 4 weeks aftersurgery, but it will depend on your surgery and symptoms. These timelines are approximate, so it isimportant for you to talk to your doctor and/or physical therapist to be sure when it is safe for you. If you have any questions or concerns please do not hesitate to call our office at [phone]. Hip Arthroscopy Your Rehabilitation after surgery is just as important as the surgery itself! It is helpful to havean understanding of major precautions and goals of your rehab before going into surgery. Knowing what to expect during your post-operative rehabilitation will best prepare you for success. Precautions/Things to avoid: Do NOT sit for greater than 2 hours at a time; lean back so you do not feel a pinch Do NOT extend your hip behind you more than you would when you are walking. Do NOT twist or pivot on the surgery leg Do NOT lift your surgical leg without assistance Do NOT lift or carry more than 10 pounds How to safely walk with crutches and put weight on your operative leg: Crutch Fitting: Walking/Weight-bearing: Stair Negotiation: Use BOTH crutches to support your weight when standing/walking. Amount of weight allowed on leg: Dr. Carolina: You should remain partial weight bearing on your surgical leg at all times. Dr. Brady: You should remain partial weight bearing on your surgical leg at all times. Walk with a FLAT foot on your surgical leg instead of putting weight only on your toes or keeping foot elevated off the ground Up with the Good, Down with the Bad Your crutches will always move with your surgical leg. General Rehabilitation Timeframe: This progression can vary greatly from patient to patient and criteria to begin these activities isbased on pain level, strength, range of motion, and quality of movement - NOT time from surgery. Beginning an activity before you have been cleared to do so by your surgeon or physical therapist may lead to increased pain and prolonged rehabilitation. Exercises to begin prior to formal Physical therapy: Perform each exercise 2-3x per day Ankle Pumps: Move your foot up and down as if pushing down or letting up on a gas pedal in a car. Quad Sets: Lie on your back with your legs straight and toes pointed toward the ceiling. Tighten your thigh muscles and push your knee down to the bed. Hold for 3 seconds and release. Glute sets: Squeeze your buttocks together. Hold for 3 seconds and release Short Arc Quad: Place a large can or rolled towel under your knee. Straighten your knee and leg. Hold 3 seconds. Passive Circumduction: You need to have someone help you with this exercise. Lie on your back. Do not lift the leg yourself but have someone lift your leg slightly. Rotate it clockwise for 2 minutes. Then rotate it counter clockwise for 2 minutes. Next, have your helper raisethe leg to 30 degrees and repeat the motions. Go clockwise for 2 minutes and then counter clockwisefor another 2 minutes. VIDEO available online: [email or web address] Ice/compression: Use ice packs or cold compresses. Apply ice or compress to the area for 20 to 30 minutes. Take ice/compress off the area 20 to 30 minutes before using it again. documented in this [facility]09-26-2023 Surgery Postoperative evaluation and management note* Op Note - Yanet Carolina MD - 06/28/2023 11:05 AM EDT OP NOTE - RIGHT HIP ARTHROSCOPY Preop Diagnosis: 1. Right hip Femoroacetabular impingement, cam 2. Right hip Labral tear Postop Diagnosis: 1. Right hip Femoroacetabular impingement, cam anterior lateral neck 2. Right hip chondrolabral delamination and delaminating tear of labral base Procedure: 1. Right hip Arthroscopic osteoplasty femoral neck 69656 2. Right hip Arthroscopic labral repair 32819 3. Right hip Arthroscopic capsular closure 4. Right hip Flouroscopy 40449 Surgeon: Yanet Carolina MD Javascript Engineer: NELLA Brady served as first cook, the assistance was necessary to perform safe manipulation of the operative extremity and positioning of the leg for anchor insertion. No qualified residents were available to assist with the procedure. Anesthesia: GETA Surgical Indication: The patient is an active 28-year-old female, with right hip pain increasing over the past 4 years or more. The patient had findings on history, exam, and imaging consistent with femoroacetabular impingment, anterior lateral cam area noted on preop 3d CT scan -- with possible labral pathology - as noted on preop MRI and no advanced degenerative changes noted. The patient's symptoms were not controlled with conservative measures including trials of PT / rehab modalities, restand activity modification, and medications. The patient was limited in their ability to be physically active due to the hip pain. The patient was therefore interested in and deemed to be an appropriate candidate for operative intervention with hip arthroscopy. After discussing the pros and cons of treatment options and risks and benefits of surgical intervention with the patient, the patient elected to proceed with surgery with the understanding of the risks of infection, stiff joint, injury tonerve or blood vessel, numbness over operative foot or groin or thigh, blood clot, heart/lung or anesthesia complications, and continued hip pain or future hip arthritis. Findings: anterior lateral neck cam lesion, reduced offset consistent with OLIVIA, reduced offset along anterior lateral neck, with a high grade delaminating type labral tear from 12 to 2 on the clock with adjacent 0.5 x 2 cm chondral softening and fraying ICRS 1 to 2 - no significant chondral damage on remainder femoral head or remainder of acetabulum, no loose body, there was notable anterior superior hip joint and supra-labral synovitis and labral bruising / erythema and mild synovitis in acetabular fossa. The ligamentum teres was intact. EBL: Minimal Postop Plan: Discharge home today. Partial WB RLE, for first 2 weeks. Begin passive ROM starting tonight and formal outpatient physical therapy per protocol in next 5 days. Follow the standard labralrepair protocol. Follow-up in clinic in 2 weeks for wound check and in 6 weeks with x-rays. Special Considerations: Flouroscopy was necessary for the procedure to confirm portal positions as well as to confirm the adequacy of the osteoplasty. Procedure: The operative site was marked in preop holding by the attending surgeon with the full participation of the patient. The patient was taken to the operating room. On entering the OR a sign in was held with the anesthesia, nursing and surgical teams all present and participating and confirming the operative site and plan. The patient underwent a GETA by the [facility] Anesthesia service. The patient was placed supine on a Tena and Nephew traction table and both feet were placed in well-paddedtraction boots. A [employer] Postless system was utilized. A traction check was performed to confirm adequate traction for the procedure using a fluoroscopic unit. Traction was then released. The surgical leg was prepped and draped in standard sterile fashion. Antibiotics consisting of clindamycin 900 mg IV - were given within 60 minutes of incision. A surgical timeout was performed prior to incision - and nursing, anesthesia and surgical teams were all present and all parties agreed on the planned operative site and procedure. The hip was distracted approximately one centimeter. Using fluoroscopic guidance, the hip capsule, TFL, and portal sites were injected with 15 mg Toradol, 10 mg morphine and 30 ml of 0.5% Ropivacainefor postop pain control. The bony landmarks including greater trochanter and ASIS were palpated easily. Standard anterolateral and mid-anterior hip arthroscopic portals were made using a spinal needle, nitinol wire and arthroscopic hip cannulas. Flouroscopy was used throughout the process to confirm appropriate and safe portal placement. 5.0 mm hip cannulas were placed in both portals. The camerawas moved from the AL portal to MA portal. We used a switching stick and slotted cannula to introduce an arthroscopic grayling blade knife into the AL portal. An interportal capsulotomy was then created with the arthroscopic knife. We then switched the camera to the AL portal and with a identical technique brought the arthroscopic knife into the MA portal and completed the interportal cut. A diagnostic scope was then performed using a probe to gently probe all chondrolabral surfaces. Findings were as noted above. We carefully probed the labrum and it displaced into the joint at the 12 to 2 on the clock consistent with a medium to higher grade labral delamination of the labral base in this area. The labral tissue overall looked healthy to attempt repair. Shaver and cautery were used to perfor m a limited synovectomy focusing on inflamed, hypertrophic areas of synovium above the labrum on the rim to improve visualization. Shaver was used to clean up frayed portions of labrum. The bone at the anchor insertion site was then freshened with bone silvana. We used the DALA portal to drill holes for the anchors at the 1230 and 130 clock positions respectively. An arthroscopic cannula was placed in the mid anterior portal to aid in suture management. Each drill hole was probed with a nitinol wire to confirm that no perforation of the extra- articular cortex occurred - prior to insertion of theanchor. The labrum was sutured with 1230 and 130 on the clock with 2 Pivot Nanotack 1.4 mm hip suture anchors (passed under the labral tissue and pulled back over the labrum with Pivot Nanopass suture passing device) to recreate an labral-cartilage seal on the femoral head. After placing the anchors and passing and tying the suture with an arthroscopic sliding knot (SMC) locked with 2 half hitches, we then probed the labrum and it was now found to be solidly attached to the rim and did not displace into the joint. Traction was released. Total traction time was for the entire case less than 40minutes. After release of traction, the labrum sat anatomically on the femoral head and created a suction seal. At this point, the hip was taken off of traction, and the femoral head reduced into the acetabulum.The anterior head/neck junction and femoral neck was identified. We visualized the lateral vessels which appeared fully intact and the medial ligament of Weibrecht (with flexion and external rotation). We next created an accessory distal anterolateral portal -- about 2 cm distal and slightly anterior to the AL portal. From the DALA and MA portals we used an arthroscopic knife and electrocautery to create a longitudinal capsulotomy approximately 2 cm down the femoral neck at the mid anterior aspect - connecting with the prior interportal cut, creating a T shaped capsulotomy which when combined with internal and external rotation and flexion, allowed for excellent visualization of the femoral neck from medial to lateral positions. Using a [employer] Slingshot device, a traction suture was placed in the medial leaflet of the capsular cut to allow traction to be applied to the medial capsuleand thereby improve visualization for the osteoplasty. The CAM lesion was exposed and an osteoplasty of the femoral neck was performed from the anterior lateral portion of the neck, stopping short ofascending vessels in the lateral retinacular fold. Flouroscopy was used to confirm adequate bony debridement, with particular attention paid to the Soliman lateral view. Soliman views were made prior to resection and were compared with views after resection to ensure that the cam was adequately resected. Finally, the T-shaped capsulotomy was repaired with 5 # 2 Vicryl simple stitches that were passed through medial/lateral and proximal / distal limbs of the capsulotomy with a [employer] Slingshot device. The slingshot device was first passed through one leaflet of capsule and then punctured through the opposing leaflet to retrieve the suture and pull it through. #2 Vicryl suture through both leaflets of capsule. Each suture was tied with sliding (SMC) arthroscopic knot and cut with suture cutter. The suture passing was performed 5 times (2 sutures in medial/lateral and 3 in the proximal / distallimbs of the capsulotomy) to ensure tight, anatomic capsule closure. The wounds were closed with inverted 2-0 Vicryl and simple nylon sutures. Final sponge and needle counts were correct. A dressing consisting of 4x4, ABD, tegaderm were applied. A cryocuff will be used postop. Sign out was held. Patient was extubated and taken to PACU in stable condition. Yanet Carolina MD [facility]09-26-2023 Surgery Postoperative evaluation and management note* Brief Op Note - Yanet Carolina MD - 06/28/2023 11:04 AM EDT Jessica Acuna ([id number]) PRE OPERATIVE DIAGNOSIS Right hip impingement syndrome [M25.851] POST OPERATIVE DIAGNOSIS Post-Op Diagnosis Codes: * Right hip impingement syndrome [M25.851] PROCEDURE PERFORMED Procedure(s) (LRB): Right hip arthroscopy (Right) ARTHROSCOPY HIP W/ LABRAL REPAIR (Right) PRIMARY CLOSURE Yes INTRAOPERATIVE FINDINGS cam lesion, labral tear SURGEON Surgeon(s) and Role: * Yanet Carolina MD - Primary ANESTHESIOLOGIST Anesthesiologist: Raymond Archer MD DENTAL SECRETARY: Crissy Moraes APRN-DENTAL SECRETARY SURGICAL STAFF Pickling Solution Maker: Barbara Aguirre; Rosalia Hagen RN Physician Javascript Engineer: Sonu Griffin, PAC Scrub Person: Raul Riley Press Worker Helper: Donnie Lan COMPLICATIONS None ESTIMATED BLOOD LOSS Minimal SPECIMENS No specimen sent * No specimens in log * Yanet Carolina MD June 28, 2023 11:04 AM [facility]09-26-2023 Nurse Surgical operation note* Barbara Aguirre - 06/28/2023 11:00 AM EDT ISBAR given to MACHINE I CUTTER All questions answered [facility]09-26-2023 Nurse Note* Barbara Aguirre - 06/28/2023 11:00 AM EDT ISBAR given to MACHINE I CUTTER All questions answered * Lluvia Sam RN - 06/28/2023 9:03 AM EDT OR team at bedside, report given to JOSEPH Jimenez * Lluvia Sam RN - 06/28/2023 8:[address] Archer at bedside, timeout completed for block to the right hip * Lluvia Sam RN - 06/28/2023 8:54 AM EDT Patient placed on 2 liters per nasal cannula for block procedure [facility] Surgical operation note* Lluvia Sam RN - 06/28/2023 9:03 AM EDT OR team at bedside, report given to JOSEPH Jimenez [facility]09-26-2023 Nurse Surgical operation note* Lluvia Sam RN - 06/28/2023 8:[address] Archer at bedside, timeout completed for block to the right hip [facility]09-26-2023 Nurse Surgical operation note* Lluvia Sam RN - 06/28/2023 8:54 AM EDT Patient placed on 2 liters per nasal cannula for block procedure [facility]09-26-2023 Surgery Preoperative evaluation and management note* OR PreOp - NELLA Thorpe - 06/28/2023 8:49 AM EDT In compliance with the laws of the [facility], the following conditions have been met for extending the dose or duration of opioid pain medication for the treatment of acute pain. Diagnosis: 1. Right Hip OLIVIA (M25.851) 2. Pain following surgery or procedure (ICD10 G89.18) 7 day limit exceeded due to pain that is expected to persist longer than 7 days. Pathology of pain: Surgery 30 MED average exceeded due to: Major Orthopedic Surgery - S/P Right/ Left Hip Arthroscopy Reason for exceeding the 30 MED average: Pain after orthopedic surgery not acceptably controlled bynon-opioid medication. This is the lowest dose need for his medical condition. Patient will be on multi-modal pain control post op including NSAIDs and muscle relaxants. The patient's account was reviewed on the [place] Automated Rx Reporting System: OARRS. Their controlled substance medication history was found to be aligned with health and medication history. Patient has had no adverse outcomes with this medication. Sonu Griffin PA-C [facility]09-26-2023 Attending History and physical note* NELLA Thorpe - 06/28/2023 8:49 AM EDT I have examined the patient and reviewed the H&P, and there are no changes since the last H&P was completed. Sonu Griffin PA-C Source Note - Yanet Carolina MD - 06/28/2023 8:46 AM EDT HPI: Jessica Acuna is a 28 y.o. y.o. female who presents for pre-operative H&P and surgical consent for Right hip scope 06/28 No past medical history on file. Patient denies CAD, WA, stents, CHF, arrhythmias, chest pain/palpitations with exertion, exercise intolerance. Can climb 2 flights of stairs without dizziness/ LOC, SOB, CP/palpitations. Denies any previous evaluation by PCP or Cardiology for cardiac conditions. Denies asthma, COPD, LUCY. Denies cancer history. Denies stoke/TIA or previous seizure. Denies DM or thyroid disorders. Denies CKD or dialysis. Denies any bleeding disorders or hx of anemia No past surgical history on file. Medications: Patient currently has no medications in their medication list. Allergies: Patient has no allergy information on record. Social History: Patient reports that he has never smoked. He has never used smokeless tobacco. No history on file for alcohol use and drug use. Review of systems: Constitutional: Negative for fever and chills. Skin: Negative for rash and skin lesions. HENT: Negative for hearing loss. Eyes: Negative for blurred vision. Cardiovascular: Negative for chest pain, or palpitations. Respiratory: Is not experiencing shortness of breath, dyspnea, or wheezing. Gastrointestinal: Negative for nausea and vomiting. Neurological: Negative for dizziness, tingling, sensory change and headaches. Physical Exam General: Pt is seated comfortably in the examination room. Alert and oriented to time and place. Inno acute distress. Gait: Limp no Hip ROM: Right Hip ROM: IR = 20 ER = 45 Extension = 10 Flexion = 110 SARAH = 15 cm Adduction = 25 Abduction = 45 Left Hip ROM: IR = 30 ER = 55 Extension = 10 Flexion = 110 SARAH = 20 cm Adduction = 25 Abduction = 55 Right Hip PAIN: Flexion no Flexion/IR yes Britton yes Psoas no Dial no Posterior Impingement no Trochanter no Piriformis no Hernia pain no Adductor no CMS Intact yes Left Hip PAIN: Flexion no Flexion/IR no Britton no Psoas no Dial no Posterior Impingement no Trochanter no Piriformis pain no Hernia pain no Adductor no CMS intact yes X-rays: ap pelvis, ap / lat / FP right hip, [facility] 05-09-23 Joint Space intact yes Tonnis Grade: 1 Pincer no CAM No protuberant cam, some reduced offset CEA 32 Alpha angle 53 MRI: right hip [facility] 06-03-22 images and report reviewed AVN no Other abnormality no Labral Tear yes Articular damage no IMPRESSION: RIGHT hip pain, FAIS / labral tear / cam Plan: consent Right hip scope 06/28/23 Miah Centeno PA-C I have seen and examined patient today and no changes have occurred, agree with above note. In addition reviewed incidental finding of right ovarian cyst on CT of hip. She reports that she has been known to have ovarian cysts and we recommended routine fu with obygn for this. Yanet Carolina MD [facility]09-26-2023 History and physical note* NELLA Thorpe - 06/28/2023 8:49 AM EDT I have examined the patient and reviewed the H&P, and there are no changes since the last H&P was completed. Sonu Griffin PA-C Source Note - Yanet Carolina MD - 06/28/2023 8:46 AM EDT HPI: Jessica Acuna is a 28 y.o. y.o. female who presents for pre-operative H&P and surgical consent for Right hip scope 06/28 No past medical history on file. Patient denies CAD, WA, stents, CHF, arrhythmias, chest pain/palpitations with exertion, exercise intolerance. Can climb 2 flights of stairs without dizziness/ LOC, SOB, CP/palpitations. Denies any previous evaluation by PCP or Cardiology for cardiac conditions. Denies asthma, COPD, LUCY. Denies cancer history. Denies stoke/TIA or previous seizure. Denies DM or thyroid disorders. Denies CKD or dialysis. Denies any bleeding disorders or hx of anemia No past surgical history on file. Medications: Patient currently has no medications in their medication list. Allergies: Patient has no allergy information on record. Social History: Patient reports that he has never smoked. He has never used smokeless tobacco. No history on file for alcohol use and drug use. Review of systems: Constitutional: Negative for fever and chills. Skin: Negative for rash and skin lesions. HENT: Negative for hearing loss. Eyes: Negative for blurred vision. Cardiovascular: Negative for chest pain, or palpitations. Respiratory: Is not experiencing shortness of breath, dyspnea, or wheezing. Gastrointestinal: Negative for nausea and vomiting. Neurological: Negative for dizziness, tingling, sensory change and headaches. Physical Exam General: Pt is seated comfortably in the examination room. Alert and oriented to time and place. Inno acute distress. Gait: Limp no Hip ROM: Right Hip ROM: IR = 20 ER = 45 Extension = 10 Flexion = 110 SARAH = 15 cm Adduction = 25 Abduction = 45 Left Hip ROM: IR = 30 ER = 55 Extension = 10 Flexion = 110 SARAH = 20 cm Adduction = 25 Abduction = 55 Right Hip PAIN: Flexion no Flexion/IR yes Britton yes Psoas no Dial no Posterior Impingement no Trochanter no Piriformis no Hernia pain no Adductor no CMS Intact yes Left Hip PAIN: Flexion no Flexion/IR no Britton no Psoas no Dial no Posterior Impingement no Trochanter no Piriformis pain no Hernia pain no Adductor no CMS intact yes X-rays: ap pelvis, ap / lat / FP right hip, [facility] 05-09-23 Joint Space intact yes Tonnis Grade: 1 Pincer no CAM No protuberant cam, some reduced offset CEA 32 Alpha angle 53 MRI: right hip [facility] 06-03-22 images and report reviewed AVN no Other abnormality no Labral Tear yes Articular damage no IMPRESSION: RIGHT hip pain, FAIS / labral tear / cam Plan: consent Right hip scope 06/28/23 Miah Centeno PA-C I have seen and examined patient today and no changes have occurred, agree with above note. In addition reviewed incidental finding of right ovarian cyst on CT of hip. She reports that she has been known to have ovarian cysts and we recommended routine fu with obygn for this. Yanet Carolina MD * Yanet Carolina MD - 06/28/2023 8:46 AM EDT HPI: Jessica Acuna is a 28 y.o. y.o. female who presents for pre-operative H&P and surgical consent for Right hip scope 06/28 No past medical history on file. Patient denies CAD, WA, stents, CHF, arrhythmias, chest pain/palpitations with exertion, exercise intolerance. Can climb 2 flights of stairs without dizziness/ LOC, SOB, CP/palpitations. Denies any previous evaluation by PCP or Cardiology for cardiac conditions. Denies asthma, COPD, LUCY. Denies cancer history. Denies stoke/TIA or previous seizure. Denies DM or thyroid disorders. Denies CKD or dialysis. Denies any bleeding disorders or hx of anemia No past surgical history on file. Medications: Patient currently has no medications in their medication list. Allergies: Patient has no allergy information on record. Social History: Patient reports that he has never smoked. He has never used smokeless tobacco. No history on file for alcohol use and drug use. Review of systems: Constitutional: Negative for fever and chills. Skin: Negative for rash and skin lesions. HENT: Negative for hearing loss. Eyes: Negative for blurred vision. Cardiovascular: Negative for chest pain, or palpitations. Respiratory: Is not experiencing shortness of breath, dyspnea, or wheezing. Gastrointestinal: Negative for nausea and vomiting. Neurological: Negative for dizziness, tingling, sensory change and headaches. Physical Exam General: Pt is seated comfortably in the examination room. Alert and oriented to time and place. Inno acute distress. Gait: Limp no Hip ROM: Right Hip ROM: IR = 20 ER = 45 Extension = 10 Flexion = 110 SARAH = 15 cm Adduction = 25 Abduction = 45 Left Hip ROM: IR = 30 ER = 55 Extension = 10 Flexion = 110 SARAH = 20 cm Adduction = 25 Abduction = 55 Right Hip PAIN: Flexion no Flexion/IR yes Britton yes Psoas no Dial no Posterior Impingement no Trochanter no Piriformis no Hernia pain no Adductor no CMS Intact yes Left Hip PAIN: Flexion no Flexion/IR no Britton no Psoas no Dial no Posterior Impingement no Trochanter no Piriformis pain no Hernia pain no Adductor no CMS intact yes X-rays: ap pelvis, ap / lat / FP right hip, [facility] 05-09-23 Joint Space intact yes Tonnis Grade: 1 Pincer no CAM No protuberant cam, some reduced offset CEA 32 Alpha angle 53 MRI: right hip [facility] 06-03-22 images and report reviewed AVN no Other abnormality no Labral Tear yes Articular damage no IMPRESSION: RIGHT hip pain, FAIS / labral tear / cam Plan: consent Right hip scope 06/28/23 Miah Centeno PA-C I have seen and examined patient today and no changes have occurred, agree with above note. In addition reviewed incidental finding of right ovarian cyst on CT of hip. She reports that she has been known to have ovarian cysts and we recommended routine fu with obygn for this. Yanet Carolina MD [facility] operation note* OR PreOp - NELLA Thorpe - 06/28/2023 8:49 AM EDT In compliance with the laws of the [facility], the following conditions have been met for extending the dose or duration of opioid pain medication for the treatment of acute pain. Diagnosis: 1. Right Hip OLIVIA (M25.851) 2. Pain following surgery or procedure (ICD10 G89.18) 7 day limit exceeded due to pain that is expected to persist longer than 7 days. Pathology of pain: Surgery 30 MED average exceeded due to: Major Orthopedic Surgery - S/P Right/ Left Hip Arthroscopy Reason for exceeding the 30 MED average: Pain after orthopedic surgery not acceptably controlled bynon-opioid medication. This is the lowest dose need for his medical condition. Patient will be on multi-modal pain control post op including NSAIDs and muscle relaxants. The patient's account was reviewed on the [place] [employer] Rx Reporting System: [employer]. Their controlled substance medication history was found to be aligned with health and medication history. Patient has had no adverse outcomes with this medication. Sonu Griffin PA-C [facility] History and physical note* Yanet Carolina MD - 06/28/2023 8:46 AM EDT HPI: Jessica Acuna is a 28 y.o. y.o. female who presents for pre-operative H&P and surgical consent for Right hip scope 06/28 No past medical history on file. Patient denies CAD, WA, stents, CHF, arrhythmias, chest pain/palpitations with exertion, exercise intolerance. Can climb 2 flights of stairs without dizziness/ LOC, SOB, CP/palpitations. Denies any previous evaluation by PCP or Cardiology for cardiac conditions. Denies asthma, COPD, LUCY. Denies cancer history. Denies stoke/TIA or previous seizure. Denies DM or thyroid disorders. Denies CKD or dialysis. Denies any bleeding disorders or hx of anemia No past surgical history on file. Medications: Patient currently has no medications in their medication list. Allergies: Patient has no allergy information on record. Social History: Patient reports that he has never smoked. He has never used smokeless tobacco. No history on file for alcohol use and drug use. Review of systems: Constitutional: Negative for fever and chills. Skin: Negative for rash and skin lesions. HENT: Negative for hearing loss. Eyes: Negative for blurred vision. Cardiovascular: Negative for chest pain, or palpitations. Respiratory: Is not experiencing shortness of breath, dyspnea, or wheezing. Gastrointestinal: Negative for nausea and vomiting. Neurological: Negative for dizziness, tingling, sensory change and headaches. Physical Exam General: Pt is seated comfortably in the examination room. Alert and oriented to time and place. Inno acute distress. Gait: Limp no Hip ROM: Right Hip ROM: IR = 20 ER = 45 Extension = 10 Flexion = 110 SARAH = 15 cm Adduction = 25 Abduction = 45 Left Hip ROM: IR = 30 ER = 55 Extension = 10 Flexion = 110 SARAH = 20 cm Adduction = 25 Abduction = 55 Right Hip PAIN: Flexion no Flexion/IR yes Britton yes Psoas no Dial no Posterior Impingement no Trochanter no Piriformis no Hernia pain no Adductor no CMS Intact yes Left Hip PAIN: Flexion no Flexion/IR no Britton no Psoas no Dial no Posterior Impingement no Trochanter no Piriformis pain no Hernia pain no Adductor no CMS intact yes X-rays: ap pelvis, ap / lat / FP right hip, [facility] 05-09-23 Joint Space intact yes Tonnis Grade: 1 Pincer no CAM No protuberant cam, some reduced offset CEA 32 Alpha angle 53 MRI: right hip [facility] 06-03-22 images and report reviewed AVN no Other abnormality no Labral Tear yes Articular damage no IMPRESSION: RIGHT hip pain, FAIS / labral tear / cam Plan: consent Right hip scope 06/28/23 Miah Centeno PA-C I have seen and examined patient today and no changes have occurred, agree with above note. In addition reviewed incidental finding of right ovarian cyst on CT of hip. She reports that she has been known to have ovarian cysts and we recommended routine fu with obygn for this. Yanet Carolina [facility] Miscellaneous Notes* Telephone Encounter - Tiffanie Schmidt APRN.CNP - 06/17/2023 4:48 PM EDT Noted. Tiffanie Schmidt APRN.CNP * Telephone Encounter - Danna Rosado RN - 06/17/2023 4:33 PM EDT Soonest appointment is 06/27 in Radiology. Scheduled. Danna Rosado RN * Telephone Encounter - Tiffanie Schmidt APRN.LAURIE - 06/17/2023 4:06 PM EDT ED note reviewed. IUD strings were visualized extruding from cervical os. Pelvic ultrasound orderedfor pain and IUD localization. Tiffanie Schmidt APRN.WOOD INSPECTOR * Telephone Encounter - Myla Rich RN - 06/17/2023 3:51 PM EDT Records received from [place] and spoke to patient. She did not have IUD removed in ER. Physician only did pelvic exam and she did not have u/s done. She is still having LLQ pain constantly. Movement seems to make it worse. Rates 8/10 on pain scale when she is on her feet all day at work. She has oxycodone from her doctor who is doing her hip surgery, so she takes that at bedtime anyway and she is at least able to sleep. Concerned with pain because her hip surgery is on 06/28/23. ER records to to review. Myla Rich RN * Telephone Encounter - Myla Rich RN - 06/17/2023 3:26 PM EDT In care everywhere it shows patient went to [facility], but can only see lab results. Requested records from [place]. Myla Rich RN * Telephone Encounter - Danna Rosado RN - 06/16/2023 8:26 AM EDT Left message for patient to call office. Danna Rosado RN * Telephone Encounter - Tiffanie Schmidt APRN.CNP - 06/15/2023 5:31 PM EDT Please call pt for patient update. Tiffanie Schmidt APRN.CNP * Telephone Encounter - Lluvia Trujillo LPN - 06/14/2023 4:03 PM EDT . * Telephone Encounter - Danna Rosado RN - 06/14/2023 3:02 PM EDT Patient states she went to the bathroom and when she wiped she could feel her IUD strings. Having spotting and left sided pelvic pain. Pain rate of 7 out of 10. Patient does not live in [place] and plans to go to local ER. She has hip surgery coming up on 06/28/23. If this IUD needs removed, patientis wanting to replace it before her surgery. Patient to call the office with an update. Danna Rosado RN [facility] History and physical note * Miah Centeno, PAC - 05/27/2023 12:00 PM EDT Chief Complaint Patient presents with Right Hip - Pre-operative Evaluation Pre-op R hip scope (DOS: 06/28/23). Pt states that pain is worse at night and when driving. HPI: Jessica Acuna is a 28 y.o. y.o. female who presents for pre-operative H&P and surgical consent for Right hip scope 06/28 No past medical history on file. Patient denies CAD, WA, stents, CHF, arrhythmias, chest pain/palpitations with exertion, exercise intolerance. Can climb 2 flights of stairs without dizziness/ LOC, SOB, CP/palpitations. Denies any previous evaluation by PCP or Cardiology for cardiac conditions. Denies asthma, COPD, LUCY. Denies cancer history. Denies stoke/TIA or previous seizure. Denies DM or thyroid disorders. Denies CKD or dialysis. Denies any bleeding disorders or hx of anemia No past surgical history on file. Medications: Patient currently has no medications in their medication list. Allergies: Patient has no allergy information on record. Social History: Patient reports that he has never smoked. He has never used smokeless tobacco. No history on file for alcohol use and drug use. Review of systems: Constitutional: Negative for fever and chills. Skin: Negative for rash and skin lesions. HENT: Negative for hearing loss. Eyes: Negative for blurred vision. Cardiovascular: Negative for chest pain, or palpitations. Respiratory: Is not experiencing shortness of breath, dyspnea, or wheezing. Gastrointestinal: Negative for nausea and vomiting. Neurological: Negative for dizziness, tingling, sensory change and headaches. Physical Exam General: Pt is seated comfortably in the examination room. Alert and oriented to time and place. Inno acute distress. Gait: Limp no Hip ROM: Right Hip ROM: IR = 20 ER = 45 Extension = 10 Flexion = 110 SARAH = 15 cm Adduction = 25 Abduction = 45 Left Hip ROM: IR = 30 ER = 55 Extension = 10 Flexion = 110 SARAH = 20 cm Adduction = 25 Abduction = 55 Right Hip PAIN: Flexion no Flexion/IR yes Britton yes Psoas no Dial no Posterior Impingement no Trochanter no Piriformis no Hernia pain no Adductor no CMS Intact yes Left Hip PAIN: Flexion no Flexion/IR no Britton no Psoas no Dial no Posterior Impingement no Trochanter no Piriformis pain no Hernia pain no Adductor no CMS intact yes X-rays: ap pelvis, ap / lat / FP right hip, [facility] 05-09-23 Joint Space intact yes Tonnis Grade: 1 Pincer no CAM No protuberant cam, some reduced offset CEA 32 Alpha angle 53 MRI: right hip [facility] 06-03-22 images and report reviewed AVN no Other abnormality no Labral Tear yes Articular damage no IMPRESSION: RIGHT hip pain, FAIS / labral tear / cam Plan: consent Right hip scope 06/28/23 Miah Centeno PA-C [facility]08-25-2023 History and physical note* NELLA Leblanc - 05/27/2023 12:00 PM EDT Chief Complaint Patient presents with Right Hip - Pre-operative Evaluation Pre-op R hip scope (DOS: 06/28/23). Pt states that pain is worse at night and when driving. HPI: Jessica Acuna is a 28 y.o. y.o. female who presents for pre-operative H&P and surgical consent for Right hip scope 06/28 No past medical history on file. Patient denies CAD, WA, stents, CHF, arrhythmias, chest pain/palpitations with exertion, exercise intolerance. Can climb 2 flights of stairs without dizziness/ LOC, SOB, CP/palpitations. Denies any previous evaluation by PCP or Cardiology for cardiac conditions. Denies asthma, COPD, LUCY. Denies cancer history. Denies stoke/TIA or previous seizure. Denies DM or thyroid disorders. Denies CKD or dialysis. Denies any bleeding disorders or hx of anemia No past surgical history on file. Medications: Patient currently has no medications in their medication list. Allergies: Patient has no allergy information on record. Social History: Patient reports that he has never smoked. He has never used smokeless tobacco. No history on file for alcohol use and drug use. Review of systems: Constitutional: Negative for fever and chills. Skin: Negative for rash and skin lesions. HENT: Negative for hearing loss. Eyes: Negative for blurred vision. Cardiovascular: Negative for chest pain, or palpitations. Respiratory: Is not experiencing shortness of breath, dyspnea, or wheezing. Gastrointestinal: Negative for nausea and vomiting. Neurological: Negative for dizziness, tingling, sensory change and headaches. Physical Exam General: Pt is seated comfortably in the examination room. Alert and oriented to time and place. Inno acute distress. Gait: Limp no Hip ROM: Right Hip ROM: IR = 20 ER = 45 Extension = 10 Flexion = 110 SARAH = 15 cm Adduction = 25 Abduction = 45 Left Hip ROM: IR = 30 ER = 55 Extension = 10 Flexion = 110 SARAH = 20 cm Adduction = 25 Abduction = 55 Right Hip PAIN: Flexion no Flexion/IR yes Britton yes Psoas no Dial no Posterior Impingement no Trochanter no Piriformis no Hernia pain no Adductor no CMS Intact yes Left Hip PAIN: Flexion no Flexion/IR no Britton no Psoas no Dial no Posterior Impingement no Trochanter no Piriformis pain no Hernia pain no Adductor no CMS intact yes X-rays: ap pelvis, ap / lat / FP right hip, [facility] 05-09-23 Joint Space intact yes Tonnis Grade: 1 Pincer no CAM No protuberant cam, some reduced offset CEA 32 Alpha angle 53 MRI: right hip [facility] 06-03-22 images and report reviewed AVN no Other abnormality no Labral Tear yes Articular damage no IMPRESSION: RIGHT hip pain, FAIS / labral tear / cam Plan: consent Right hip scope 06/28/23 Miah Centeno PA-C documented in this [facility]08-25-2023 History of Present illness Narrative* NELLA Leblanc - 05/27/2023 12:00 PM EDT Chief Complaint Patient presents with Right Hip - Pre-operative Evaluation Pre-op R hip scope (DOS: 06/28/23). Pt states that pain is worse at night and when driving. There were no vitals filed for this visit. CC: Preoperative assessment and consent for consent Right hip scope 06/28/23 Do you have a clotting problem? no Have you ever had a blood clot in your legs or lungs? no Do you have an immediate family member who has ever had a blood clot in the legs or lungs? Yes Dad. Do you have a heart arrhythmia called atrial fibrillation or AFib? no Do you smoke or use other products with nicotine? no Are you using estrogen control pills? no Are you using estrogen pills due to menopause? no Have you ever been diagnosed with cancer? no Have you ever had a stroke?no Do you have problems with swelling in the legs or varicose veins?no Do you have a bleeding problem that has been diagnosed by your doctor? no Have you ever had bleeding that occurred in your stomach, bowels or brain? no Do you drink more than 2 alcoholic drinks per week? no Has a doctor ever had a difficult time controlling your bleeding in the past? no Do you currently take any of the following medications? Coumadin no Plavix no Aspirin no Heparin no Xarelto no Pradaxa no Eliquis no Lovenox no Are you allergic to any of the following medications? Coumadin no Plavix no Aspirin no Heparin no Xarelto no Pradaxa no Eliquis no Lovenox no After discussing the pros and cons of treatment options and risks and benefits of surgical intervention, The Pt has elected to proceed with surgery at this time. They understand there's no guarantee of results with surgery and there are always risks of infection, stiff joint, injury to nerve, muscle or blood vessel, blood clot, anesthesia complications, loss of life, numbness over operative foot/groin/thigh, pudendal nerve palsy with possible numbness over the genitals and/or sexual dysfunction, continued hip pain, future arthritis, etc. The procedure and recovery were discussed and all questions answered. The Pt understands that this is an elective procedure and should they have any further questions they may give me a call. Assessment/Plan: Preoperative assessment and consent for Right hip scope 06/28. Okay for Darlene. Eliquis will be used post operatively. Pt has no known personal cardiac history. He/She will follow the instruction of the [facility] nurses for efren-operative medication management. Pt signed a copy of the controlled substance agreement while in the office today. Pt was verbally notified that we will only provide pain medication for 6 weeks post operatively. After 6 weeks, if pt still needs pain medication, they will be required to contact their PCP or pain management physician. OARRS report was verified. A prescription for physical therapy and a disability placard were provided at today's visit. H&P completed in the office today. As always, the pt may call the office with any further questions or concerns. [facility] HIP PRESERVATION POST OP PAIN PLAN Meloxicam 15 mg tab, 1 tab every day, up to 30 days, #30 Oxycodone 5 mg tab, 1-2 tabs PO q6 hrs PRN 2nd-line breakthrough pain, QUALITY:20 Acetaminophen 650 mg tab, 1 tab PO q8 hrs, up to 14 days, #56 Anti-nausea Eliquis BMI 48.39 Darlene Horne morning of Miah Centeno PA-C [facility] History of Present illness Narrative* Yanet Carolina MD - 05/09/2023 1:15 PM EDT CHIEF COMPLAINT Chief Complaint Patient presents with Right Hip - Pain 28 y.o. female c/o R hip pain. NKI. Pain located: anterior hip, groin, some lateral hip. Duration: 3-4 yrs. Pain 6/10, described as sharp/dull/achy/throbbing. Aggravated with prolonged sitting/standing/walking, stairs up>down, in/out of car, laying on R side (+) n/t-B/L legs into feet R>L, mechanical sx-clicking, popping, locking. Pain relief with nothing. Phx of [place] in 2021, no inj. Tx: Percocet 5-325 mg 1 tab 2x/day for pain PRN, stretching, HEP HISTORY OF PRESENT ILLNESS Jessica is a pleasant 28 y.o. female who presents today for evaluation of right hip. She is complaining of pain. The symptoms have been present for 4 year(s). The problem was a(n) insidious onset. Thepatient did not have a specific injury. There is numbness/tingling in the lower extremities. The pain is right hip anterior / lateral constant, moderate, severe. The patient describes the painas aching, sharp / stabbing, throbbing and locking / clicking / popping. The patient has had physical therapy. The patient has not had injections in the hip. The patient has not had prior hip surgery. The following worsen the problem: Stairs / in/out of car, walking / laying on hip. The following improve the problem: rest. 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 PHYSICAL EXAMINATION: Well developed, well nourished patient in no acute distress. Alert and oriented times three, affect appropriate. Gait: Limp no Hip ROM: Right Hip ROM: IR = 20 ER = 45 Extension = 10 Flexion = 110 SARAH = 15 cm Adduction = 25 Abduction = 45 Left Hip ROM: IR = 30 ER = 55 Extension = 10 Flexion = 110 SARAH = 20 cm Adduction = 25 Abduction = 55 Right Hip PAIN: Flexion no Flexion/IR yes Britton yes Psoas no Dial no Posterior Impingement no Trochanter no Piriformis no Hernia pain no Adductor no CMS Intact yes Left Hip PAIN: Flexion no Flexion/IR no Britton no Psoas no Dial no Posterior Impingement no Trochanter no Piriformis pain no Hernia pain no Adductor no CMS intact yes Imaging independently reviewed and interpreted by myself: X-rays: ap pelvis, ap / lat / FP right hip, [facility] 05-09-23 Joint Space intact yes Tonnis Grade: 1 Pincer no CAM No protuberant cam, some reduced offset CEA 32 Alpha angle 53 MRI: right hip [facility] 06-03-22 images and report reviewed AVN no Other abnormality no Labral Tear yes Articular damage no IMPRESSION: RIGHT hip pain, FAIS / labral tear / cam PLAN: We reviewed with Jessica today, her diagnosis. The diagnosis and treatment options were discussed with her in detail today. Jessica is interested in surgical treatment at this time and I do think she is a good candidate for surgery with good potential for rehab and recovery of function. We discussed the outcomes of hip scope surgery as reported in the literature and that hip arthroscopy provides a good chance to improve pain and functional level but not likely provide a completely normal feeling hip. We discussed time off of school or work and time need for rehab and time frame for recovery -- including up to 9 to 12 months for return to some higher level sports activities. After discussing the pros and cons of treatment options and risks and benefits of surgical intervention, Jessica has elected to proceed with surgery at this time - with a RIGHT hip arthroscopy with trimming of bone osteoplasty and treatment or cartilage and labrum (repair or debridement) as needed. The patient understands there's no guarantee of results with hip arthroscopic surgery there are described complications that can occur including risk of infection, arthrofibrosis or stiff joint, injury to nerve or blood vessel, blood clot, anesthesia complications, bleeding, numbness over operative foot, groin, or thigh (from lateral femoral cutaneous nerve injury) which can be permanent, pudendalnerve injury with groin numbness from traction, future hip arthritis, or continued hip pain. The procedure and recovery were discussed in detail and all questions answered. The patient understands that this is an elective procedure and if further questions arise, to contact my office. Needs east, 3d CT and preop consent visit. If there are any questions prior to this, the patient was instructed to contact the office. Yanet Carolina MD Orthopaedic Surgery Hip Preservation documented [facility] this [facility] Miscellaneous Notes* Telephone Encounter - Tony Ron RN - 12/01/2022 1:44 PM EST Pt Id By Name & . Pt consented to conversing via phone. Spoke with pt for 5 mins. Informed pt - [facility], pt's BMI > 40 (48.42), unable to submit Surgery Case Request. I stated pt's most recent documented Ht/ Wt, pt confirmed that it was correct. Pt acknowledged surg case can not proceed. Encouraged pt to continue PT, HEP, Dietary consultation, and Pt to f/up PRN / when BMI < 40. All Qs answered. Very Respectfully, Edison Ron RN, D.M. Raymond Brambila M.D. Ariadne Blanco PA-C Sports Medicine Surgeon and Orthopedic Surgeon Appt: [phone] / [id number] [place], [place] [address] documented in this encounterGreen [facility]01-26-2023 History and physical note * Kelly Leal PA-C - 10/28/2022 11:00 AM EST PREANESTHESIA CONSULT CLINIC TELEHEALTH VISIT Patient has been identified by name and date of : Yes This is a virtual visit using [employer] video visit. It require patient-provider interaction for the medical decision making as documented below. Reason for contact: [facility] visit Accompanied by: Self Scheduled Surgery: Procedure: ARTHROSCOPY HIP SURGICAL W/ ACETABULOPLASTY TENA AND NEPHEW Subjective CHIEF COMPLAINT: Patient presents with: Pre-Op Visit HPI: This is a 27 year old female with right hip pain for a couple years. No known injury or trauma. Pain worse after on feet all day. Some relief with ice. Pain radiates down leg. MRI showed Tearing of the anterior and superolateral right acetabular labrum ACTIVE PROBLEM LIST Obesity Asthma Anxiety Gerd (Gastroesophageal Reflux Disease) PAST MEDICAL HISTORY Diagnosis Date Environmental allergies receives weekly allergy shots PAST SURGICAL HISTORY Procedure Laterality Date L'SCOPE CHOLECYSTECTOMY 2020 PAST SURGICAL HISTORY OF Right 2018 release plantar fasciitis PAST SURGICAL HISTORY OF Left 2021 release plantar fasciitis TONSILLECTOMY HX 10/03/2006 FAMILY HISTORY Problem Relation Age of Onset None Mother Colon Cancer Father Hypertension Father None Brother None Brother Colon Polyps Maternal Grandmother Social History Tobacco Use Smoking status: Never Smokeless tobacco: Never Vaping Use Vaping Use: Never used Substance Use Topics Alcohol use: Not Currently Drug use: Never ALLERGIES Allergen Reactions Penicillins Hives MEDICATIONS: Current Outpatient Medications Medication Sig DULoxetine (CYMBALTA) 60 mg capsule Take 60 mg by mouth once daily. ALBUTEROL INHALATION Inhale as instructed. omeprazole (PRILOSEC) 20 mg capsule Take 1 capsule by mouth once daily. levonorgestrel (MIRENA) 20 mcg/24 hours (7 yrs) 52 mg IUD 1 Each by INTRAUTERINE route as directed. BREO ELLIPTA 200-25 mcg/dose inhaler INHALE 1 PUFF BY MOUTH ONCE DAILY No current facility-administered medications for this visit. COVID VACCINATION STATUS: Not vaccinated, prior infection Positive 1.5 years ago and 6 months ago REVIEW OF SYSTEMS: Pain Assessment: General: No weight loss, malaise or fevers. Neuro: No history of TIA's, stroke, SALES AGENT TRADING STAMPS tumor, impaired sensorium, hemiplegia, paraplegia or quadraplegia. No neurological symptoms or problems. Respiratory: Positive for Asthma, Negative for Current cough, Dyspnea, Home O2, Pneumonia within 6 weeks (date), Tobacco Use, URI < 2 weeks, Wheezing Cardiovascular: No history of HTN requiring medication, no history of angina, CHF, WA, cardiac surgery or stents. Denies rest pain, gangrene or revascularization/amputation for PVD. No history of cardiovascular symptoms or problems. 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 : Denies, No LMP recorded. (Menstrual status: IUD). Endocrine: No history of diabetes. Has not taken steroids within the past 30 days. No history of endocrinological symptoms or problems. +PCOS Hematology: No history of bleeding or clotting disorder. Pt is not taking anti- coagulation or platelet medications. No history of hematological symptoms or problems. Oncology: No history of CA metastasis, chemo within 30 days, or radiotherapy within 90 days. Has not lost 10% of body wt in 6 months. No history of oncological symptoms or problems. Psych: Anxiety Musculoskeletal: See HPI Skin: Negative for lesions, rash and itching. Objective PHYSICAL EXAM: Ht 5' 6[pt reported[ (1.68m) Wt 300 lb (136.1kg) BMI 48.44 kg/(m^2). VIDEO EXAM: (if completed, performed via video enabled technology) GENERAL: alert and appropriate, in no distress, well-hydrated, well nourished, and happy, smiling, interactive SKIN: no rash noted HEAD: normocephalic, no abnormality or lesion noted EYES: no injection NOSE: external nose normal without rhinorrhea NECK: full ROM, no cervical LNs noted when palpated by pt RESPIRATORY: breathing non-labored and no grunting/flaring/retractions HEART: carotid HR palpated by patient, described as regular rhythm ABDOMEN: soft and non-tender when palpated by pt NEUROLOGIC: no obvious deficit Diagnostic tests reviewed for today's visit: Lab Value Units Date High Low HB No results within date range. HCT No results within date range. WBC No results within date range. PLT No results within date range. NA No results within date range. K No results within date range. GLUC No results within date range. BUN No results within date range. CREAT No results within date range. PTSEC No results within date range. INR No results within date range. APTT No results within date range. ALT No results within date range. AST No results within date range. TBILI No results within date range. TSH No results within date range. Lab Value Units Date High Low HCGQT No results within date range. UHCG No results within date range. HCG, BODY* No results within date range. Lab Value Units Date High Low ABORHD No results within date range. ABSCREEN No results within date range. No results found for: HBA1C Most recent labs Impression/Recommendations ASSESSMENT: Obesity Assessment: Body mass index is 48.42 kg/m . Asthma Assessment: stable on breo and albuterol PRN (has not used in months). No SOB currently Anxiety Assessment: stable on Cymbalta GERD (gastroesophageal reflux disease) Assessment: stable on omeprazole METS: Climb a flight of stairs or walk up a hill (5.50 METs) Patient denies any chest pain or undue shortness of breath with the above physical activity. ASA Class: 3 ANESTHESIA FINDINGS: Intubation History: No history of difficult intubation Significant Anesthesia Considerations: Difficult IV/Vein Access: if use hand usually no issues. Airway Exam: General: Morbid obesity Mallampati Score is CLASS II ULBT: Class I - Lower incisors can bite the upper lip above the asad line Neck: Short and thick neck Mouth: Normal tongue size and Mouth opening greater than 2 finger breaths Dentition: Intact Airway History: No abnormal airway history STOP BANG Score: Criteria: BMI > 35 Neck circumference > 15.75 inches Score = 2 PLAN: This patient is optimally prepared for surgery. Pending labs CONSULTS: Patient does not require consults for optimization at this time. The Following Tests/Procedures Have Been Initiated: Labs not indicated per [facility] protocol Planned Anesthetic: Per anesthesia choice Instructions Given to Patient: Patient given verbal instructions and voices comprehension and compliance. Copy sent electronically via My Chart, email, or mobile device. This is a virtual visit. It required patient-provider interaction for the medical decision making as documented above. SIGNATURE: Kelly Leal PA-C PATIENT NAME: Jessica Acuna DATE: October 28, 2022 TIME: 11:22 AM PAGER/CONTACT #: documented in this encounterGreen [facility]01-23-2023 Instructions* Patient Instructions* Kelly Lael PA-C - 10/25/2022 2:05 PM EST PATIENT PREOPERATIVE INSTRUCTIONS Raymond Brambila MD has scheduled you for your procedure at this surgery center: [facility]: [phone] --[id number] [facility] [place] [place] [address]. Please enter through the entrance closest to [facility]. Please read below carefully for your personalized instructions. Dietary Restrictions: - No solid food after midnight. - You may have 12 ounces of clear liquids (water, clear juices such as apple juice or gatorade, carbonated beverages, clear tea, black coffee, jello) until 2 hours before scheduled arrival at facility. Medications: Unless instructed differently below, stay on all of your medications until your surgery. Approved medications to take the morning of surgery with a sip of water: prilosec (omeprazole), breo inhaler, albuterol inhaler if needed, cymbalta (duloxetine) If you start any new medications after today's visit, please contact the surgeon's office. Blood Thinning Medications: - Stop NSAIDS (Ibuprofen, Advil, Aleve, Motrin, Celebrex, Mobic, etc.) 7 days before surgery, as directed by your surgeon. - Stop Aspirin 7 days before surgery, as directed by your surgeon. - Stop Vitamin E, ALL multi-vitamins, herbals and dietary supplements 7 days before surgery. - You may take Tylenol (Acetaminophen) or any of your pain medications that do not contain aspirin or NSAIDS as needed. Important Reminders: - Candy, mints, and tobacco products are NOT permitted the morning of surgery. - Hearing aids, dentures and glasses may be worn the morning of surgery. - NO jewelry, body piercings, makeup, hairpins or contacts are to be worn the day of surgery. If you develop symptoms such as a fever, cold, or flu, or have other changes to your health within TWO DAYS of scheduled surgery or the morning of surgery, please contact the surgery center above. Personal Belongings: -Please have photo ID and insurance cards. -If you do not have a copy of advance directives on file with us, please bring a copy with you on the day of surgery. - Leave ALL valuables and money at home or with family members. For Outpatient Procedures: - YOU MUST HAVE A RESPONSIBLE ENZYME CHEMIST TAKE YOU HOME. A HEMSTITCHING MACHINE OPERATOR OR CLIPPER MACHINE OPERATOR CANNOT BE MADE A RESPONSIBLE ENZYME CHEMIST. - We recommend that a responsible person stays with you overnight to take care of you. - You cannot stay in a hotel alone after outpatient surgery. You will not be permitted to have yoursurgery, if you do not have someone to take care of you. Arrival Time for Surgery: - The Surgery Center or hospital where you are having surgery will call the afternoon before surgery (or Tuesday for Tuesday surgery) with a scheduled arrival time. - If you have not heard by 4 pm, please contact the surgery center above. Please be aware that emergency situations arise, which may delay or change your surgical time. If this happens, we will notify you as soon as possible and regret any inconvenience. If you already have an Advance Directive, please fax a copy to [phone] or email to for it to be added to your chart. If you do not have an Advance Directive, you can find the appropriate form and more information at [email or web address]. We recommend that youcomplete the Advance Directive form found on the website and bring it with you the day of your surgery. It can be witnessed and scanned into your chart that day. Marychuy Leal PA-C [phone] documented in this encounterGreen Cross Hospital01-12-2023 Miscellaneous Notes* Telephone Encounter - Tony Ron RN - 10/14/2022 9:31 AM EST Pt Id By Name & . Pt consented to conversing via phone. Pt agreed to surgery date with Dr. Raymond Brambila on Oct 28 at [facility]. Pt confirmed surgery will be for Right hip Scope. Surgery checklist and perioperative planning HX OF VTE Venous thromboembolism: No FHX family history OF VTE : No Currently on anticoagulation: No Patient confirmed home assistance post op: Yes Crutches / Walker : YES Pt confirmed - will bring on Day of Surgery PT location for post op: Pt to sched outside [facility] HX OF MRSA: No HX OF ANEMIA: No HX OF DM: No A1C: n/a ALLERGY TO ASPIRIN: no ALLERGY TO NSAIDS: no ALLERGY TO PCN: YES ALLERGY TO METAL: No CHG wipes or CHG soap - patient received these today with instructions. Surgery booklet with information to contact [facility] if they do not hear from them in 14 days prior to surgery. The patient was offered a surgery/procedure at a [facility] facility. The surgeon/proceduralist and patient have discussed in detail the risk of exposure to and/or potential harm posed by the COVID-19 virus with having a surgery/procedure at this time versus the risk of delaying the surgery/pr ocedure. It is not possible to know either the risk of delaying the surgery or procedure or chance of getting an infection with perfect accuracy, but a joint decision was made between the patient andthe surgeon to proceed at this time with the scheduled surgery/procedure as indicated on the consent form. As a result of the September 2021 [facility] decision to cancel non- essential surgeries at [facility] facilities, unless special criteria are met, I have reviewed the clinical record for this patient and have determined that the scheduled procedure meets the criteria to go forward and should be scheduled because of the presence of severe symptoms and/or risk of rapid disease progression. Spoke with pt for 15 mins. documented in this encounterGreen Cross Hospital10-03-2022 Miscellaneous Notes* Telephone Encounter - Angélica Vega - 07/05/2022 3:09 PM EDT Patient would like to schedule with Dr Overton in [place] Business Area Director [facility] [address] [place] [address] P: [phone] F: [phone] [email or web address] * Telephone Encounter - Angélica Vega - 07/05/2022 3:08 PM EDT ----- Message from Daylin Ramos sent at 07/05/2022 2:30 PM EDT ----- Regarding: Spine/Violeta Overton)/Referral Question Subject Line Format: Medicine / [Provider Name] / [Issue] Patient has been identified by name and Date of (Y/N): Y Patient: Jessica Acuna Date of : 1995 Provider for this encounter: Markos Overton MD Reason for the call/escalation: Patient has [facility]. Stated PCP has referred patient to Dr. Fatoumata Overton. Patient would like to know if the [facility] is the correct place where she should be scheduling or if she needs to go to the [facility] Was Patient Referred to [facility]/Seek Emergency Treatment (Y/N): N Did Patient Agree (Y/N): na Was An Attempt Made To Transfer The Patient To The Office (Y/N): N Were You Able To Reach Someone At The Office (Y/N): na If Yes - Patient Was Transferred To (Caregivers Name): na If No - Which [facility] Leadership Machine Driller Did You Speak With Regarding This Patient: na Was an appointment scheduled (Y/N): N Reason patient was requesting visit (RFV/signs and symptoms/diagnosis) : Referral Question Person calling if other than patient: Patient Return call to if other than patient: na Best contact number: [phone] Thank you, Daylin Ramos July 05, 2022 2:30 PM documented in this encounterGreen Cross Hospital09-16-2022 NoteHNO ID: [id number] Author: Raymond Brambila MD Service: ? Author Type: Physician Type: Progress Notes Filed: 06/18/2022 3:29 PM Note Text: NEW ENCOUNTER This patient is being seen at the request of PCM and the progress note from this visit will be communicated via shared medical record Chief Complaint: right Hip pain PAIN INTAKE: PAIN EVALUATION No data found in the last 1 encounters. History: Patient is a 27 year old female presenting for evaluation of right hip pain. She denies an acute injury event.. Date of injury/duration of pain: years, worse the last 6 months Location: Groin Intensity: Moderate Quality: Aching Job Related: No Symptoms with the following activities: Increased activity and work The following things help the symptoms: Rest, IBU, heat, PT, stretching RIGHT Hip MRI 06/03/2022: IMPRESSION: Tearing of the anterior and superolateral right acetabular labrum. 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 With food. (Patient not taking: No sig reported) colestipol (COLESTID) 1 gram tablet Take 1 tablet by mouth twice daily. omeprazole (PRILOSEC) 20 mg capsule Take 1 capsule by mouth once daily. losartan (COZAAR) 25 mg tablet Take 1 tablet by mouth once daily. labetalol (TRANDATE) 200 mg tablet Take by mouth. (Patient not taking: No sig reported) metFORMIN ER (GLUCOPHAGE XR) 500 mg 24 hr tablet (Patient not taking: Reported on 06/04/2022) levonorgestrel (MIRENA) 20 mcg/24 hours (7 yrs) 52 mg IUD 1 Each by INTRAUTERINE route as directed. BREO ELLIPTA 200-25 mcg/dose inhaler INHALE 1 PUFF BY MOUTH ONCE DAILY miSOPROStol (CYTOTEC) 200 mcg tablet Insert 2 tablets vaginally night prior to procedure and 2 tablets morning of procedure. Each dose should be in vagina for 6-8 hours. (Patient not taking: No sig reported) Allergies: ALLERGIES Allergen Reactions Penicillins Hives REVIEW OF SYSTEMS: Patient reports no change in past medical AND surgical history, medications, allergies, social history, family history and review of systems Allergies, medications, past surgical history and past medical history were reviewed per this encounter. Physical Examination: Region: Hip General Appearance: Appears healthy, well-nourished, no deformities. BMI 51 Neck/Spine/Station/Gait: Normal gait Left Exam: AROM: 0-1 100/15/65 PROM: Normal Point Tenderness location: none Swelling/Effusion: none Stability: normal Muscle Strength: normal Sensation:normal Reflexes:normal Skin: normal Pulses: normal Special Tests: XIOMY ER is to level 1 Right Exam: AROM: 0 to 90/0/45 PROM: Same as active Point Tenderness location:none Swelling/Effusion: none Stability: normal Muscle Strength: normal Sensation:normal Reflexes:normal Skin: normal Pulses: normal Special Tests: Positive XIOMY SCHULTZ ER is to level 2 Images have been personally reviewed by me and discussed with patient. Abnormal, anterior superior labrum tear Last MRI Hip/Pelvis - Impression Only MRI HIP WO IVCON RT Exam End: 06/03/2022 9:32 AM (Final result) Impression: IMPRESSION: Tearing of the anterior and superolateral right acetabular labrum. Cooler Servicer: ALEX Transcribe Date/Time: Jun 03 2022 9:50A ... Assessment and Plan: Right hip anterior labrum tear Discussed options including continued physical therapy and cortisone injection. Discussed the prevalence of asymptomatic labrum tears in the general population. Patient is very tearful and frustrated with progress. Interested in surgery. I discussed hip arthroscopy with labrum repair. I discussed the risk, benefits, postoperative debilitation, convalescence and appropriate outcome expectations. More specifically I discussed risk factors associated with potential poor outcome for persistent pain after hip surgery. These are BMI, mental health, and preoperative pain score. She has at least 2 out of these 3. I reiterated the importance of this point and made sure that she understands that surgery can have complications and risk for less than satisfactory outcome. She verbalized understanding of this discussion. Specifically for her we will need a Wausa table and this will need to be done at the hospital. We will need Tena AND Nephew extended cannulas and instruments. We will also need the Arthrex standard arthroscopy instruments. We will potentially need an extended camera to go with all of these instruments. We will need m (more content not included)...[id number] History of Present illness Narrative* Raymond Brambila MD - 06/18/2022 3:00 PM EDT NEW ENCOUNTER This patient is being seen at the request of PCM and the progress note from this visit will be communicated via shared medical record Chief Complaint: right Hip pain PAIN INTAKE: PAIN EVALUATION No data found in the last 1 encounters. History: Patient is a 27 year old female presenting for evaluation of right hip pain. She denies anacute injury event.. Date of injury/duration of pain: years, worse the last 6 months Location: Groin Intensity: Moderate Quality: Aching Job Related: No Symptoms with the following activities: Increased activity and work The following things help the symptoms: Rest, IBU, heat, PT, stretching RIGHT Hip MRI 06/03/2022: IMPRESSION: Tearing of the anterior and superolateral right acetabular labrum. 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 With food. (Patient not taking: No sig reported) colestipol (COLESTID) 1 gram tablet Take 1 tablet by mouth twice daily. omeprazole (PRILOSEC) 20 mg capsule Take 1 capsule by mouth once daily. losartan (COZAAR) 25 mg tablet Take 1 tablet by mouth once daily. labetalol (TRANDATE) 200 mg tablet Take by mouth. (Patient not taking: No sig reported) metFORMIN ER (GLUCOPHAGE XR) 500 mg 24 hr tablet (Patient not taking: Reported on 06/04/2022) levonorgestrel (MIRENA) 20 mcg/24 hours (7 yrs) 52 mg IUD 1 Each by INTRAUTERINE route as directed. BREO ELLIPTA 200-25 mcg/dose inhaler INHALE 1 PUFF BY MOUTH ONCE DAILY miSOPROStol (CYTOTEC) 200 mcg tablet Insert 2 tablets vaginally night prior to procedure and 2 tablets morning of procedure. Each dose should be in vagina for 6-8 hours. (Patient not taking: No sig reported) Allergies: ALLERGIES Allergen Reactions Penicillins Hives REVIEW OF SYSTEMS: Patient reports no change in past medical & surgical history, medications, allergies, social history, family history and review of systems Allergies, medications, past surgical history and past medical history were reviewed per this encounter. Physical Examination: Region: Hip General Appearance: Appears healthy, well-nourished, no deformities. BMI 51 Neck/Spine/Station/Gait: Normal gait Left Exam: AROM: 0-1 100/15/65 PROM: Normal Point Tenderness location: none Swelling/Effusion: none Stability: normal Muscle Strength: normal Sensation:normal Reflexes:normal Skin: normal Pulses: normal Special Tests: XIOMY ER is to level 1 Right Exam: AROM: 0 to 90/0/45 PROM: Same as active Point Tenderness location:none Swelling/Effusion: none Stability: normal Muscle Strength: normal Sensation:normal Reflexes:normal Skin: normal Pulses: normal Special Tests: Positive FADIR, XIOMY ER is to level 2 Images have been personally reviewed by me and discussed with patient. Abnormal, anterior superior labrum tear Last MRI Hip/Pelvis - Impression Only MRI HIP WO IVCON RT Exam End: 06/03/2022 9:32 AM (Final result) Impression: IMPRESSION: Tearing of the anterior and superolateral right acetabular labrum. Cooler Servicer: ALEX Transcribe Date/Time: Jun 03 2022 9:50A ... Assessment and Plan: Right hip anterior labrum tear Discussed options including continued physical therapy and cortisone injection. Discussed the prevalence of asymptomatic labrum tears in the general population. Patient is very tearful and frustratedwith progress. Interested in surgery. I discussed hip arthroscopy with labrum repair. I discussed the risk, benefits, postoperative debilitation, convalescence and appropriate outcome expectations. More specifically I discussed risk factors associated with potential poor outcome for persistent painafter hip surgery. These are BMI, mental health, and preoperative pain score. She has at least 2 out of these 3. I reiterated the importance of this point and made sure that she understands that surgery can have complications and risk for less than satisfactory outcome. She verbalized understandingof this discussion. Specifically for her we will need a Wausa table and this will need to be done at the hospital. We will need Tena & Nephew extended cannulas and instruments. We will also need the Arthrex standardarthroscopy instruments. We will potentially need an extended camera to go with all of these instruments. We will need multiple treatment cannulas on standby. No hip brace will be needed for this as it is unlikely to provide satisfactory support. She will need preoperative Soliman and false profile x-rays which I have ordered. Surgery should be booked for 2-1/2 hours given the difficulties there will be with positioning and hip access. Would also give consideration to preoperative TXA to help with visualization within the hip joint. Arthrex knotless FiberTak anchor Arthrex hip arthroscopy scope and cannula set Arthrex hip arthroscopy instrumentation Wausa Table or Tena and Nephew Hip arthroscopy Advanced Supine Hip positioning system with secure heel boots Post (pink pad pending) Large C-arm Supine Closure: 2-0 Vicryl, 3-0 Prolene, Xeroform, 4x4, ABDs, MediPore Tape. Knee High RYANNE PT within 3-7 days Corina protocol (if outside hospital will supply copy) Follow-up: 2 weeks, 6 weeks, 3 months. (XR at 6 weeks) Raymond Brambila MD Sports Medicine/Orthopaedic Surgery documented in this encounterGreen Cross Hospital09-02-2022 Miscellaneous Notes* Telephone Encounter - Tiffanie Patel Ma - 06/04/2022 4:02 PM EDT Patient has been notified of message from Dr. Cohen. She verbalized understanding. Gave her the names of all the physicians listed below. Patient transferred to scheduling to set up appointment. * Telephone Encounter - Tiffanie Patel Ma - 06/04/2022 4:00 PM EDT ----- Message from Salbador Cohen V, DO sent at 06/04/2022 10:19 AM EDT ----- MRI of hips shows a tear of the labrum. Since patient has done PT, medication management with no improvement, I recommend surgical consultation. Dr. Jaskaran Brambila, Dr. Jocelyn Martini ([facility]) or Dr. Will Arriaga. thank you DD documented in this encounterGreen Cross Hospital09-02-2022 History of Present illness Narrative* Tiffanie Schmidt APRN.WOOD INSPECTOR - 06/04/2022 1:48 PM EDT Jessica Acuna presents today for IUD check. She had a Mirena placed on 11/11/2021. She has had some cramping and sharp pains last weekend. Cramping usually occurs with spotting. Unable to feel strings. Recent antibiotic. Has been under a lot of stress - grandmother 2 weeks ago. MRI of right hip yesterday - will need to have surgery. REVIEW OF SYSTEMS: No fever or chills. PHYSICAL EXAMINATION: LMP 09/26/2021 ABDOMEN:soft, non-tender, no masses, no hepatosplenomegaly, and no lymphadenopathy EXTERNAL GENITALIA: Normal genitalia and Bartholins, Urethra, Sken'e normal CERVIX: smooth, no lesions, IUD strings visualized, and + pale yellow vaginal discharge . IMPRESSION/PLAN: IUD correctly positioned. Discharge - BVC. Discussed cramping and spotting probably menstrual symptoms and reassured. Jessica would like to leave IUD in place for now. Follow up for annual exam or sooner if needed. Tiffanie Schmidt CNP I spent a total of 20 minutes on the date of the service which included preparing to see the patient, [id number] patient care, completing clinical documentation, obtaining and/or reviewing separately obtained history, performing a medically appropriate examination, counseling and educating the pat ient/family/caregiver, and ordering medications, tests, or procedures. documented in this encounterGreen Cross Hospital09-01-2022 History of Present illness Narrative* RT Rom(R) - 06/03/2022 8:40 AM EDT Radiology Service Progress Note PATIENT NAME: Jessica Acuna DATE OF SERVICE: June 03, 2022 TIME: 8:59 AM PATIENT IDENTITY VERIFICATION COMPLETED USING TWO (2) IDENTIFIERS: Name and Date of confirmedby patient verbally. FALL SCREENING: Has the patient had 2 falls in the last year or 1 fall with injury or currently using an Ambulatory Assistive Device (Walker, Cane, Wheelchair, Crutches, etc.)? No PATIENT GENDER DATA: Female. status: : No status: NO. PATIENT RELEVANT IMPLANT DATA REVIEWED: Yes RADIOLOGY DEPARTMENT: MR; Exam(s) Completed: Lower MSK: Hip, right PERIPHERAL IV DATA: Not applicable SIGNED BY: RT Rom(R) June 03, 2022 8:59 AM documented in this encounterGreen Cross Hospital07-14-2022 History of Present illness Narrative* Tiffanie Schmidt APRN.WOOD INSPECTOR - 04/15/2022 9:07 AM EDT Virtual Visit: This is a virtual visit using [employer] video visit. It required patient-provider interaction for themedical decision making as documented below. HPI: Has been having cramping and pain in uterus. Mirena IUD inserted 11/11/2021. Monthly menses lasting 3-4 days light bleeding, which is a big improvement but thinks cramping is a litle more with theIUD. Feels more emotional with the IUD also. Noticed increased vaginal discharge last week. No vaginal itching or odor. Has right hip impingement and is starting therapy. Not sure if hip problems are related to her uterine pain. 04/13/2022 UTERUS: Size is 7.8 x 4.6 x 4.7 cm with unremarkable appearance. The endometrium is thin. There is an IUD in the endometrial canal ADNEXAE: There is a cyst in the right ovary measuring 1.2 x 1.6 x 1.7 cm. The right ovary measures 3.0 x 2.6 x 2.6 cm. The left ovary measures 1 point 8 by 1.6 x 2.4 cm. CUL-DE-SAC: Normal. No fluid or mass. US 01/22/2022 ADNEXAE: There is an anechoic structure, consistent with a cyst in the right ovary measuring 2.5 x 2.2 x 2.3 cm. There is a thin internal septation. There is flow in the surrounding ovarian parenchyma. The right ovary measures 2.8 x 2.5 x 2.9 cm. The left ovary measures 1.0 x 1.2 x 2.1 cm. . ASSESSMENT/PLAN: 1. Cyst of right ovary - ICD9: 620.2, ICD10: N83.201 (primary diagnosis) - small right ovarian cyst on US 04/13/2020 - has decreased in size from 2.5 cm to 1.7 cm. - Reassured 2. Pain due to intrauterine contraceptive device (IUD), initial encounter (HCC) - ICD9: 996.76, 338.18, ICD10: T83.84XA - Increased uterine cramping and feels emotional -Improvement in HMB 3. Vaginal discharge - ICD9: 623.5, ICD10: N89.8 - Increased amount Recommend OV for further evaluation. Pt to schedule. Tiffanie Schmidt APRN.CNP Signature: Tiffanie Schmidt APRN.CNP Date: April 15, 2022 Time: 9:08 AM I spent a total of 20 minutes on the date of the service which included preparing to see the patient, [id number] patient care, completing clinical documentation, obtaining and/or reviewing separately obtained history, performing a medically appropriate examination and counseling and educating the patient/family/caregiver. documented in this encounterGreen Cross Hospital06-24-2022 Instructions* Patient Instructions* Salbador Cohen V, DO - 03/26/2022 3:32 PM EDT Thank you for choosing the [facility] for your acute care needs. [facility] treats minor infections, rashes and injuries. It is our mission for our patients to be healthy. A primary care relationship with the physician allows for continuity of care, counseling, and maintenance of preventive health care needs. [facility] does not replace the relationship or need for a primary care physician. For information about establishing with a primary care physician or booking an appointment, please call [phone] or speak with any Patient Telephone Switchboard Operator. Hours: Tuesday through Tuesday 7:30 am to 7:00 pm. Tuesday and Tuesday: 8:00 am to 2:30 pm. documented in this encounterGreen Cross Hospital06-24-2022 History of Present illness Narrative* Salbador Cohen V, DO - 03/26/2022 3:28 PM EDT [facility] [id number] Ms. Acuna is a 27 year old female that presents today complaining of hip problems on the right side for the last several years. She claims that there is no specific incident that brought on this pain. The pain is described as chronic and intermittent located in the groin. Patient states that her pain level is a number 7 on a scale of 1-10. She describes the pain as sharp/pinching with certain movements. She states that the pain affects her everyday function. 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 ALLERGIES: Penicillins MEDICATIONS: Current Outpatient Medications Medication Sig colestipol (COLESTID) 1 gram tablet Take 1 tablet by mouth twice daily. omeprazole (PRILOSEC) 20 mg capsule Take 1 capsule by mouth once daily. losartan (COZAAR) 25 mg tablet Take 1 tablet by mouth once daily. metFORMIN ER (GLUCOPHAGE XR) 500 mg 24 hr tablet levonorgestrel (MIRENA) 20 mcg/24 hours (7 yrs) 52 mg IUD 1 Each by INTRAUTERINE route as directed. BREO ELLIPTA 200-25 mcg/dose inhaler INHALE 1 PUFF BY MOUTH ONCE DAILY meloxicam (MOBIC) 15 mg tablet Take 1 tablet by mouth once daily. With food. labetalol (TRANDATE) 200 mg tablet Take by mouth. (Patient not taking: Reported on 12/29/2021 ) miSOPROStol (CYTOTEC) 200 mcg tablet Insert 2 tablets vaginally night prior to procedure and 2 tablets morning of procedure. Each dose should be in vagina for 6-8 hours. (Patient not taking: Reportedon 12/29/2021 ) No current facility-administered medications for this visit. MEDICAL HISTORY: PAST MEDICAL HISTORY Diagnosis Date Environmental allergies receives weekly allergy shots SURGICAL HISTORY: PAST SURGICAL HISTORY Procedure Laterality Date L'SCOPE CHOLECYSTECTOMY 2020 PAST SURGICAL HISTORY OF Right 2019 release plantar fasciitis PAST SURGICAL HISTORY OF Left 2021 release plantar fasciitis TONSILLECTOMY HX 10/03/2006 FAMILY HISTORY: FAMILY HISTORY Problem Relation Age of Onset None Mother Colon Cancer Father Hypertension Father None Brother None Brother Colon Polyps Maternal Grandmother SOCIAL HISTORY: Social History Tobacco Use Smoking status: Never Smoker Smokeless tobacco: Never Used Vaping Use Vaping Use: Never used Substance Use Topics Alcohol use: Never Drug use: Never PHYSICAL ASSESSMENT: The Pt walks with a normal gait B/l LE have valgus, recurvatum alignment The Left hip reveals no hip flexion contracture, 0-100 degrees of flexion, Internal Rotation to 20 degrees in flexion and external rotation to 45 degrees in flexion. Abduction to 45 degrees and adduction to 20 degrees. There is no pain with palpation over the ischial tuberosity or the greater trochanter. The Right hip reveals no hip flexion contracture, 0-100 degrees of flexion, Internal Rotation to 10degrees with positive impingement sign. and external rotation to 45 degrees in flexion. Abduction to 45 degrees and adduction to 20 degrees. There is no pain with palpation over the ischial tuberosity or the greater trochanter. EHL 5/5 DF 5/5 PF 5/5 RADIOGRAPH: Mild vacuum phenomenon noted in the right SI joint, hip images without acute abnormality ASSESSMENT: Right anterior hip pain, symptoms and exam findings indicate hip impingement syndrome PLAN: Recommend meloxicam as ordered Physical therapy to evaluate and treat with order written. Recheck in 4 to 6 weeks Salbador Cohen DO * Tiffanie Patel Ma - 03/26/2022 3:09 PM EDT AMB ROOMING INTAKE FLOWSHEET DATA Risk Screening Do you have concerns about personal safety or safety in the home?: No Pain Pain Level: 7 Pain Location: Hip-Right Description: Throbbing Duration Amount of Time: (years) Frequency: Continuous Intervention/Comfort measure: Medication, Heat documented in this encounterGreen Cross Hospital03-29-2022 Instructions* Patient Instructions* Helen Ferrer APRN.CNP - 12/29/2021 2:41 PM EDT F/u in 2 months this can be VV. documented in this encounterGreen Cross Hospital03-29-2022 History of Present illness Narrative* Helen Ferrer APRN.CNP - 12/29/2021 1:53 PM EDT CHIEF COMPLAINT: Patient presents with: Diarrhea: after each meal with 2-3 times on toilet Abdominal Pain: right lower quad with cramping GERD: with heartburn omprazole 20 mg as needed This consult was requested by Tiffanie Schmidt APRN.CNP for an opinion regarding diarrhea and abdominal pain with GERD symptoms. My final recommendations will be communicated to the requesting health care provider by way of the shared medical record for internal providers or letter via the [employer] for external providers. Jessica Acuna is a 26 year old female who presents for abdominal pain. Patient reports family history of father diagnosed colon cancer at the age of 59 years. HPI: Patient reports she has a history of diarrhea over many years over the last 2 years she started having RUQ pain - she reports right after eating she will have watery BM. She reports at time mucus. Denies black or blood in stool. She reports after eating will get RUQ sharp pain and will need to have a BM and the pain will be relieved after a BM. She will also have intermittent quick stabbing pains in her RUQ. Patient reports gall bladder was taken out 2020 in [place]. Patient reports she takes omeprazole as needed and she will take this if she eats spicy foods. Patient states couple times a week 2-3 times. PAtient reports coughing at night. Patient denies taking NSAIDs Record Review: [facility] / Outside records reviewed. ndication menorrhagia Impression Normal appearing anteverted uterus that measures 62 mm x 28 mm x 37 mm. The central endometrium complex measures 7.3 mm in combined thickness. No abnormal blood flow to suggest a polyp or focal endometrial pathology is observed within the endometrial complex. The contour of the endometrial cavity was normal on 3-D imaging. Both ovaries are visualized and appear normal. No adnexal masses were observed. There is no free fluid visualized in the peritoneal cavity. PAST MEDICAL HISTORY Diagnosis Date Environmental allergies receives weekly allergy shots PAST SURGICAL HISTORY Procedure Laterality Date TONSILLECTOMY HX 2006 Allergies: ALLERGIES Allergen Reactions Penicillins Hives Medications: metFORMIN ER (GLUCOPHAGE XR) 500 mg 24 hr tablet levonorgestrel (MIRENA) 20 mcg/24 hours (7 yrs) 52 mg IUD 1 Each by INTRAUTERINE route as directed. BREO ELLIPTA 200-25 mcg/dose inhaler INHALE 1 PUFF BY MOUTH ONCE DAILY ibuprofen (MOTRIN) 800 mg tablet Take 1 tablet by mouth every 8 hours as needed for pain. FOR PAIN. losartan (COZAAR) 25 mg tablet Take 1 tablet by mouth once daily. cholestyramine (QUESTRAN) 4 gram packet Take 1 Packet by mouth three times daily with meals. labetalol (TRANDATE) 200 mg tablet Take by mouth. miSOPROStol (CYTOTEC) 200 mcg tablet Insert 2 tablets vaginally night prior to procedure and 2 tablets morning of procedure. Each dose should be in vagina for 6-8 hours. FAMILY HISTORY Problem Relation Age of Onset None Mother Colon Cancer Father Hypertension Father None Brother None Brother Colon Polyps Maternal Grandmother Employer And Job Title: None on file Years Of Education Completed: Not specified Marital Status: Single Social History Tobacco Use Smoking status: Never Smoker Smokeless tobacco: Never Used Vaping Use Vaping Use: Never used Substance Use Topics Alcohol use: Never Drug use: Never Review of Systems: Review of Systems Gastrointestinal: Positive for abdominal pain and diarrhea. All other systems reviewed and are negative. Are you taking any blood thinners? No Physical Examination: BP 128/84 Pulse 94 Ht 5' 5 (1.65m) Wt 307 lb (139.3kg) SpO2 98% LMP 09/26/2021 BMI 51.09 kg/(m^2). Physical Exam Constitutional: Appearance: Normal appearance. She is normal weight. HENT: Head: Normocephalic and atraumatic. Eyes: Extraocular Movements: Extraocular movements intact. Pupils: Pupils are equal, round, and reactive to light. Cardiovascular: Rate and Rhythm: Normal rate and regular rhythm. Pulses: Normal pulses. Heart sounds: Normal heart sounds. Pulmonary: Effort: Pulmonary effort is normal. Breath sounds: Normal breath sounds. Abdominal: General: Abdomen is flat. Bowel sounds are normal. Palpations: Abdomen is soft. Tenderness: There is abdominal tenderness in the right upper quadrant and epigastric area. Musculoskeletal: General: Normal range of motion. Cervical back: Normal range of motion and neck supple. Skin: General: Skin is warm and dry. Neurological: General: No focal deficit present. Mental Status: She is alert and oriented to person, place, and time. Psychiatric: Mood and Affect: Mood normal. Behavior: Behavior normal. ASSESSMENT: Generalized abdominal pain PLAN: Assessment/Plan (R10.84) Generalized abdominal pain 1. Generalized abdominal pain -Patient reports symptoms occurred after her gallbladder was taken out in 2020. Symptoms of intermittent right upper quadrant pain after eating, diarrhea. She reports the pain as sharp shooting pain that last a few seconds and then goes away. She also has noticed if she has right upper quadrant pain after bowel movement this will be relieved. Recommend starting cholestyramine, follow-up in 2 months this can be done VV. Consider colonoscopy due to family history of colon cancer - CONSULT TO GASTROENTEROLOGY Follow up in office 3 months/PRN. Recommended to please call office/go to ER if fever, chills, chest pain, SOB, diarrhea, nausea, emesis, worsening abdominal pain, dehydration occurs I spent 30 minutes in the visit, with more than 50% of the total [id number] time of the visit in counseling / coordination of care. I have confirmed and edited as necessary, the PFSH and ROS obtained by others. Helen Ferrer APRN.LAURIE January 04, 2022 1:14 PM [facility] Diagnosis Generalized abdominal pain Abdominal pain, generalized documented in this encounter [facility] note* Diagnosis Onset Date Resolution Status Allergic rhinitis acute Asthma chronic Morbid obesity due to excess calories [facility] Work Phone: Evaluation note* Diagnosis Hip impingement syndrome, right- Primary documented in this encounter [facility]* Diagnosis Cyst of right ovary- Primary Other and unspecified ovarian cyst Pain due to intrauterine contraceptive device (IUD), initial encounter ([facility]) Vaginal discharge Leukorrhea, not specified as infective documented in this encounter [facility] note* Diagnosis Pain in hip Pain in joint, pelvic region and thigh [facility] [place]* Diagnosis IUD check up- Primary Surveillance of previously prescribed intrauterine contraceptive device Vaginal discharge Leukorrhea, not specified as infective documented in this encounter [facility] note* Diagnosis Tear of right acetabular labrum, initial encounter- Primary documented in this encounter [facility] note* Diagnosis Acetabular labrum tear, right, subsequent encounter- Primary documented in this encounter [facility] note* Diagnosis Tear of right acetabular labrum, initial encounter- Primary documented in this encounter [facility] note* Diagnosis Pre-op evaluation- Primary Preoperative examination, unspecified Class 3 severe obesity with body mass index (BMI) of 45.0 to 49.9 in adult, unspecified obesity type, unspecified whether serious comorbidity present (HCC) Asthma, unspecified asthma severity, unspecified whether complicated, unspecified whether persistent Anxiety Anxiety state, unspecified Gastroesophageal reflux disease, unspecified whether esophagitis present Tear of right acetabular labrum, initial encounter documented in this encounter [facility] [place] [facility]* Diagnosis Right hip impingement syndrome- Primary [facility] [place] [facility] Diagnosis Right hip impingement syndrome- Primary Right hip impingement syndrome [facility] [place] [facility] Diagnosis Right hip impingement syndrome Right hip impingement syndrome [facility] [place] [facility]* Diagnosis LLQ pain- Primary Abdominal pain, left lower quadrant IUD (intrauterine device) in place Presence of intrauterine contraceptive device documented in this encounter [facility]* Diagnosis Right hip impingement syndrome [facility] [place] [facility]* Diagnosis S/P hip arthroscopy- Primary documented [facility] this [facility] [place] [facility]* Diagnosis Right hip impingement syndrome- Primary S/P hip arthroscopy [facility] Diagnosis Encounter for gynecological examination (general) (routine) without abnormal findings- Primary History of ovarian cyst Personal history of other genital system and obstetric disorders Class 3 severe obesity with serious comorbidity and body mass index (BMI) of 50.0 to 59.9 in adult, unspecified obesity type (HCC) Screening for cervical cancer Screening for malignant neoplasm of the cervix Essential hypertension Unspecified essential hypertension documented in this encounter [facility] note* Diagnosis Morbid obesity (HCC)- Primary Morbid obesity Primary hypertension Unspecified essential hypertension History of gastroesophageal reflux (GERD) Personal history of other diseases of digestive system documented in this encounter [facility] noteNo assessment information [facility]CoK[facility] Work Phone: Hospital Discharge instructions Additional Instructions As discussed exact cause of your abdominal pain and flank pain is undetermined urine showed no definitive evidence of infection if she was taking antibiotics may mask infection and may not show up infection if he was taking antibiotics. CT scan showed no evidence of kidney stone or any obstruction of the urinary tract or any inflammation of the kidney. It was noncontrast study. Which is limited for evaluation kidneys. however there was no evidence of UTI on urinalysis. You do have ovarian cyst that could be causing abdominal pain. You need to follow up with your primary care physician for re- evaluation and to ensure complete resolution if any problems concerns return to ER.[facility] Work Phone: Hospital Discharge instructions Additional Instructions Your blood work here today did not show any acute findings. Your CT of your abdomen did not show any acute findings. Use prescriptions as prescribed and continue supportive care with oral hydration with water, Gatorade, Pedialyte etc. Start with a bland diet and advance as tolerated. Follow-up with your doctor in the outpatient setting. Return for worsening symptoms or any other [facility]WCrystal [facility] Work Phone: Reason for referral (narrative)* Diagnostic Procedure Only (Routine) - Pending Review Specialty Diagnoses / Procedures Referred By Dayana shearer Referred To Contact XR IMAGING Diagnoses Tear of right acetabular labrum, initial encounter Procedures XR HIP GENERAL 3V PELV/AP/LAT RIGHT RADEX HIP UNILATERAL WITH PELVIS 2-[place] [address] [place] [address] Xr Imaging Referral ID Status Reason Start Date Expiration Date Visits Requested Visits Authorized [id number] Pending Review Auto-Generat ed Referral 06/18/2022 07/18/2023 1 1 [facility] for referral (narrative)* Diagnostic Procedure Only (Routine) - Authorized Specialty Diagnoses / Procedures Referred By Contac t Referred To Contact US IMAGING Diagnoses LLQ pain IUD (intrauterine device) in place Procedures US FEMALE PELVIS TRANSVAG US TRANSVAGINAL Tiffanie Schmidt APRN.WOOD INSPECTOR [address] [place] [address] [place] [address] Referral ID Status Reason Start Date Expiration Date Visits Requested Visits Authorized [id number] Authorized Auto-Generat ed Referral 06/17/2023 07/16/2024 1 [facility]No reason for referral information availableWCrystal Clinic [facility] Work Phone: Summary Purpose Family History Relationship Condition Age at Onset Recorded Date/T bryan father Cerebrovascular accident (CVA) Unknown mother Intrinsic asthma Unknown grandfather Diabetes mellitus Unknown Chronic obstructive pulmonary disease Unk nown Advance Directives Advance Directive Response Recorded Date/ Time Living Will No March 22, 2022 12:08pm Power of Team Manager No March 22 12:08pm Advance Directive Response Recorded Date/ Time Do you have a Healthcare Power of Team Manager? 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 [facility] March 08, 2025 2:45pm [facility] FU March 15, 2025 1:44 pm COLITIS DIARRHEA BLOOD IN STOOL March 2:34pm Reason for Visit Admit Date Anxiety March 08, 2025 2:45p m Colitis March 08, 2025 2:45p m Depression March 08, 2025 2:45p m Ovarian cyst March 08, 2025 2:45p m PCOS (polycystic ovarian syndrome) March 08, 2025 2:45pm Asthma March 08, 2025 2:45p m Hypertension March 08, 2025 2:45p m Acute right flank pain March 15, 2025 1 :44pm Hematuria March 15, 2025 1:44 pm Lower respiratory infection March 15, 2 025 1:44pm Abdominal pain March 22, 2025 2:34 pm Diarrhea March 22, 2025 2:34 pm Nausea March 22, 2025 2:34 pm GERD (gastroesophageal reflux disease) J une 2024 2:34pm Reason for Referral Specialty Diagnoses / Procedures Referred By Dayana shearer Referred To Contact [facility] Diagnoses Hip impingement syndrome, right Procedures CONSULT TO PHYSICAL THERAPY PHYSICAL THERAPY EVALUATION HIGH COMPLEX 45 MINS Salbador Cohen V, DO [address] [place] [address] [facility] [address] [place] [address] Referral ID Status Reason Start Date Expiration Date Visits Requested Visits Authorized [id number] Pending Review Auto-Generat ed Referral 03/26/2022 03/26/2023 1 1 Specialty Diagnoses / Procedures Referred By Dayana shearer Referred To Contact MR IMAGING Diagnoses Pain in hip Procedures MRI HIP WO IVCON RT MRI ANY JT LOWER EXTREM W/O CONTRAST MATRL Salbador Cohen V, DO [address] [place] [address] Mr Imaging Referral ID Status Reason Start Date Expiration Date V isits Requested Visits Authorized [id number] Closed Auto-Generate d Referral 05/14/2022 07/16/2022 1 1 Specialty Diagnoses / Procedures Referred By Dayana shearer Referred To Contact [facility] Diagnoses Acetabular labrum tear, right, subsequent encounter Procedures CONSULT TO [facility] ([facility]) OFFICE/OUTPATIENT [facility] MDM 60-74 MINUTES Salbador Cohen V, DO [address] [place] [address] Referral ID Status Reason Start Date Expiration Date Visits Requested Visits Authorized [id number] Pending Review PCP Requested Referral 06/25/2022 06/25/2023 1 1 Specialty Diagnoses / Procedures Referred By Dayana t Referred To Contact [facility] Diagnoses Tear of right acetabular labrum, initial encounter Procedures CONSULT TO PHYSICAL THERAPY PHYSICAL THERAPY EVALUATION HIGH COMPLEX [address] [place] [address] [place] [address] [facility] [address] [place] [address] Referral ID Status Reason Start Date Expiration Date Visits Requested Visits Authorized [id number] Pending Review Auto-Generat ed Referral 10/14/2022 10/14/2023 1 1 Specialty Diagnoses / Procedures Referred By Dayana t Referred To Contact Diagnoses Right hip impingement syndrome Procedures CT HIP RIGHT WITHOUT CONTRAST WITH 3D FOR SURGICAL PLANNING ID CT SCAN,LOWER EXTREMITY,W/O CONTRAST Yanet Carolina MD [address] [place] [address] Referral ID Status Reason Start Date Expiration Date V isits Requested Visits Authorized [id number] New Request 05/09/2023 06/02/2024 1 1 Specialty Diagnoses / Procedures Referred By Dayana t Referred To Contact [facility] Diagnoses Right hip impingement syndrome Miah Centeno, NELLA [address] [place] [address] Referral ID Status Reason Start Date Expiration Date V isits Requested Visits Authorized [id number] New Request 05/27/2023 06/20/2024 1 1 Scheduling Instructions [facility] [address] Room: [address] [place] [address] [phone] FAX [facility] [address] [facility] [address] [place] [address] FAX [facility] [address] [place], [place] [address] FAX [facility] [place] [address] [place], [place] [address] FAX [facility] [address] [facility], [address] [place] [address] FAX Outpatient Rehabilitation [facility] [place] [address], [address] [place] [address] [phone] FAX [facility] [address] [place] [address] [phone] FAX Continued on next page [facility] [place] [address] [facility], [place] [address] [phone] FAX [facility] [address] [place] [address] [phone] FAX Outpatient Rehabilitation Outpatient Care [address] [place] [address] [phone] FAX [facility] at [address] [address] [phone] FAX Outpatient Care [address] [address] FAX [facility], Room [address] [place] [address] FAX Referral ID Status Reason Start Date Expiration Date Visits Re quested Visits Authorized [id number] Closed 05/09/2023 06/02/2024 1 1 Specialty Diagnoses / Procedures Referred By Dayana t Referred To Contact Procedures US IMAGING OR Raymond Archer MD [address] [place] [address] Referral ID Status Reason Start Date Expiration Date V isits Requested Visits Authorized [id number] New Request 06/28/2023 07/22/2024 1 1 Specialty Diagnoses / Procedures Referred By Dayana shearer Referred To Contact Diagnoses Class 3 severe obesity with serious comorbidity and body mass index (BMI) of 50.0 to 59.9 in adult, unspecified obesity type (HCC) Procedures CONSULT [facility] OFFICE/OUTPATIENT NEW HIGH MDM 60-74 MINUTES Tiffanie Schmidt, GLASS TUBE BENDER.WOOD INSPECTOR [address] [place] [address] Referral ID Status Reason Start Date Expiration Date Visits Requested Visits Authorized [id number] Authorized PCP Requested Referral 08/09/2023 08/08/2024 1 1 Additional Source Comments INFORMATION SOURCE (unrecogn ized section and content) DATE CREATED AUTHOR 03/28/2018 [facility] DATE CREATED AUTHOR AUTHOR'S ORGANIZ ATION 09/10/2018 [facility] DATE CREATED AUTHOR AUTHOR'S ORGANIZ ATION 11/08/2020 [facility] DATE CREATED AUTHOR AUTHOR'S ORGANIZ ATION 04/16/2021 [facility] DATE CREATED AUTHOR AUTHOR'S ORGANIZ ATION 07/03/2022 [facility] DATE CREATED AUTHOR AUTHOR'S ORGANIZ ATION 07/07/2022 [facility] DATE CREATED AUTHOR AUTHOR'S ORGANIZ ATION 07/15/2023 [facility] DATE CREATED AUTHOR AUTHOR'S ORGANIZ ATION 04/20/2024 [facility] DATE CREATED AUTHOR AUTHOR'S ORGANIZ ATION 03/01/2025 [facility] DATE CREATED AUTHOR AUTHOR'S ORGANIZ ATION 03/19/2025 [facility] DATE CREATED AUTHOR AUTHOR'S ORGANIZ ATION 03/20/2025 [facility] Source Comments (unrecognize d section and content) In the event this informatio n is protected by the Federal Confidentiality of Alcohol and Drug Abuse Patient Records regulations: The Federal rules restrict any use of the information to criminally investigate or prosecute any alcohol or drug abuse patient.[facility] Hospital[facility] the event this information is protected by the Federal Confidentiality of Alcohol and Drug Abuse Patient Records regulations: The Federal rules restrict any use of the information to criminally investigate or prosecute any alcohol or drug abuse patient.[facility] Hospital[facility] the event this information is protected by the Federal Confidentiality of Alcohol and Drug Abuse Patient Records regulations: The Federal rules restrict any use of the information to criminally investigate or prosecute any alcohol or drug abuse patient.[facility] Hospital[facility] the event this information is protected by the Federal Confidentiality of Alcohol and Drug Abuse Patient Records regulations: The Federal rules restrict any use of the information to criminally investigate or prosecute any alcohol or drug abuse patient.[facility] Hospital[facility] the event this information is protected by the Federal Confidentiality of Alcohol and Drug Abuse Patient Records regulations: The Federal rules restrict any use of the information to criminally investigate or prosecute any alcohol or drug abuse patient.[facility] Hospital[facility] the event this information is protected by the Federal Confidentiality of Alcohol and Drug Abuse Patient Records regulations: The Federal rules restrict any use of the information to criminally investigate or prosecute any alcohol or drug abuse patient.[facility] Hospital[facility] the event this information is protected by the Federal Confidentiality of Alcohol and Drug Abuse Patient Records regulations: The Federal rules restrict any use of the information to criminally investigate or prosecute any alcohol or drug abuse patient.[facility] Hospital[facility] the event this information is protected by the Federal Confidentiality of Alcohol and Drug Abuse Patient Records regulations: The Federal rules restrict any use of the information to criminally investigate or prosecute any alcohol or drug abuse patient.[facility] Hospital[facility] the event this information is protected by the Federal Confidentiality of Alcohol and Drug Abuse Patient Records regulations: The Federal rules restrict any use of the information to criminally investigate or prosecute any alcohol or drug abuse patient.[facility] Hospital[facility] the event this information is protected by the Federal Confidentiality of Alcohol and Drug Abuse Patient Records regulations: The Federal rules restrict any use of the information to criminally investigate or prosecute any alcohol or drug abuse patient.[facility] Hospital[facility] the event this information is protected by the Federal Confidentiality of Alcohol and Drug Abuse Patient Records regulations: The Federal rules restrict any use of the information to criminally investigate or prosecute any alcohol or drug abuse patient.[facility] HospitalIn the event this information is protected by the Federal Confidentiality of Alcohol and Drug Abuse Patient Records regulations: The Federal rules restrict any use of the information to criminally investigate or prosecute any alcohol or drug abuse patient.[facility] the event this information is protected by the Federal Confidentiality of Alcohol and Drug Abuse Patient Records regulations: The Federal rules restrict any use of the information to criminally investigate or prosecute any alcohol or drug abuse patient.[facility] HospitalIn the event this information is protected by the Federal Confidentiality of Alcohol and Drug Abuse Patient Records regulations: The Federal rules restrict any use of the information to criminally investigate or prosecute any alcohol or drug abuse patient.[facility] Hospital[facility] the event this information is protected by the Federal Confidentiality of Alcohol and Drug Abuse Patient Records regulations: The Federal rules restrict any use of the information to criminally investigate or prosecute any alcohol or drug abuse patient.[facility] HospitalIn the event this information is protected by the Federal Confidentiality of Alcohol and Drug Abuse Patient Records regulations: The Federal rules restrict any use of the information to criminally investigate or prosecute any alcohol or drug abuse patient.[facility] HospitalIn the event this information is protected by the Federal Confidentiality of Alcohol and Drug Abuse Patient Records regulations: The Federal rules restrict any use of the information to criminally investigate or prosecute any alcohol or drug abuse patient.[facility] HospitalIn the event this information is protected by the Federal Confidentiality of Alcohol and Drug Abuse Patient Records regulations: The Federal rules restrict any use of the information to criminally investigate or prosecute any alcohol or drug abuse patient.[facility] HospitalIn the event this information is protected by the Federal Confidentiality of Alcohol and Drug Abuse Patient Records regulations: The Federal rules restrict any use of the information to criminally investigate or prosecute any alcohol or drug abuse patient.[facility] HospitalIn the event this information is protected by the Federal Confidentiality of Alcohol and Drug Abuse Patient Records regulations: The Federal rules restrict any use of the information to criminally investigate or prosecute any alcohol or drug abuse patient.[facility] Reason for Visit (unrecogniz ed section and content) Reason Comments Diarrhea after each meal with 2-3 times on toilet Abdominal Pain right lower quad wit h cramping GERD with heartburn ompra zole 20 mg as needed Specialty Diagnoses / Procedures Referred By Dayana shearer Referred To Contact Gastroenterology Diagnoses Generalized abdominal pain Procedures CONSULT TO GASTROENTEROLOGY OFFICE/OUTPATIENT NEW HIGH MDM 60-74 MINUTES Tiffanie Schmidt, FABIAN.WOOD INSPECTOR [address] [place] [address] Referral ID Status Reason Start Date Expiration Date V isits Requested Visits Authorized [id number] Closed PCP Requested Referral 11/13/2021 11/13/2022 1 1 Reason Comments New Patient Right hip pain Reason Comments Ovarian Cyst Specialty Diagnoses / Procedures Referred By Dayana shearer Referred To Contact MR IMAGING Diagnoses Pain in hip Procedures MRI HIP WO IVCON RT MRI ANY JT LOWER EXTREM W/O CONTRAST MATRL Salbador Cohen V, DO [address] [place] [address] Mr Imaging Referral ID Status Reason Start Date Expiration Date V isits Requested Visits Authorized [id number] Closed Auto-Generate d Referral 05/14/2022 07/16/2022 1 1 Reason Comments Results Reason Comments Pain Reason Comments 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 female c/o R hip pain. NKI. Pain located: anterior hip, groin, some lateral hip. Duration: 3-4 yrs. Pain 6/10, described as sharp/dull/achy/throbbing. Aggravated with prolonged sitting/standing/walking, stairs up>down, in/out of car, laying on R side (+) n/t-B/L legs into feet R>L, mechanical sx-clicking, popping, locking. Pain relief with nothing. [place], [place] inj. Tx: Percocet 5-325 mg 1 tab 2x/day for pain PRN, stretching, HEP Specialty Diagnoses / Procedures Referred By Dayana t Referred To Contact Orthopaedics Diagnoses Tear of right acetabular labrum, initial encounter Tia Núñez MD [address] [place] [address] [facility] [address] [place] [address] Referral ID Status Reason Start Date Expiration Date V isits Requested Visits Authorized [id number] New Request 03/31/2023 04/24/2024 1 1 Reason Comments Pre-operative Evaluation Pre-op R hip sc ope (DOS: 06/28/23). Pt states that pain is worse at night and when driving. Specialty Diagnoses / Procedures Referred By Dayana t Referred To Contact Diagnoses Right hip impingement syndrome Procedures CT HIP RIGHT WITHOUT CONTRAST WITH 3D FOR SURGICAL PLANNING ID CT SCAN,LOWER EXTREMITY,W/O CONTRAST Yanet Carolina MD [address] [place] [address] Referral ID Status Reason Start Date Expiration Date Visits Re quested Visits Authorized [id number] Closed 05/09/2023 06/02/2024 1 1 Reason Comments Pelvic Pain Specialty Diagnoses / Procedures Referred By Dayana shearer Referred To Contact Diagnoses Right hip impingement syndrome Right hip impingement syndrome [M25.851] Procedures ID ARTHROSCOPY HIP W/FEMOROPLASTY ID ARTHROSCOPY HIP W/LABRAL REPAIR ARTHROSCOPY HIP W/ FEMOROPLASTY ARTHROSCOPY HIP W/ LABRAL REPAIR Yanet Carolina MD [address] [place] [address] [facility] [address] [place] [address] Referral ID Status Reason Start Date Expiration Date Visits Re quested Visits Authorized [id number] 1 1 Reason Onset Date Comments Advice Only 06/29/2023 Reason Onset Date Comments Surgical Follow-up 06/30/2023 Reason Comments Post Op Visit 2w 1d PO R hip scope w/ labral repair (DOS: 06/28/23). Pt states that she feels pretty good. Her moms dog jumped on her leg a week ago and was sore for a couple days, but feels okay now. PT 1x/wk. No new injuries to the area. Had a touch of pneumonia and is on an antibiotic and prednisone. 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 Reason Comments Obesity Care Teams (unrecognized sec tion and content) Machine Driller Relationship Specialty Start Date End Date Petra Morales [address] [facility] [address] [place] [address] PCP - General Pediatrics 01/28/11 Machine Driller Relationship Specialty Start Date End Date Petra Morales [address] [facility] [address] [place] [address] PCP - General Pediatrics 01/28/11 Machine Driller Relationship Specialty Start Date End Date Petra Morales [address] [facility] [address] [place] [address] PCP - General Pediatrics 01/28/11 Machine Driller Relationship Specialty Start Date End Date Petra Morales [address] [facility] [address] [place] [address] PCP - General Pediatrics 01/28/11 Machine Driller Relationship Specialty Start Date End Date Petra Morales [address] [facility] [address] [place] [address] PCP - General Pediatrics 01/28/11 Machine Driller Relationship Specialty Start Date End Date Petra Morales [address] [facility] [address] [place] [address] PCP - General Pediatrics 01/28/11 Machine Driller Relationship Specialty Start Date End Date Petra Morales [address] [facility] [address] [place] [address] PCP - General Pediatrics 01/28/11 Machine Driller Relationship Specialty Start Date End Date Petra Morales Perla [address] [facility] [address] [place] [address] PCP - General Pediatrics 01/28/11 Machine Driller Relationship Specialty Start Date End Date Petra Morales Perla [address] [facility] [address] [place] [address] PCP - General Pediatrics 01/28/11 Machine Driller Relationship Specialty Start Date End Date Petra Morales Perla [address] [facility] [address] [place] [address] PCP - General Pediatrics 01/28/11 Machine Driller Relationship Specialty Start Date End Date Petra Morales Perla [address] [facility] [address] [place] [address] PCP - General Pediatrics 01/28/11 Machine Driller Relationship Specialty Start Date End Date Tia Núñez, WOOD INSPECTOR [address] [place] [address] PCP - General Family Medicine 10/28/22 Machine Driller Relationship Specialty Start Date End Date Tia Núñez, WOOD INSPECTOR [address] [place] [address] PCP - General Family Medicine 10/28/22 Machine Driller Relationship Specialty Start Date End Date Tia Núñez, WOOD INSPECTOR [address] [place] [address] PCP - General Family Medicine 10/28/22 Machine Driller Relationship Specialty Start Date End Date Tia Núñez, WOOD INSPECTOR [address] [place] [address] PCP - General Family Medicine 10/28/22 Machine Driller Relationship Specialty Start Date End Date Tia Núñez MD [address] [place] [phone] PCP - General Nurse Practitioner - [facility] 05/16/23 Machine Driller Relationship Specialty Start Date End Date Tia Núñez MD [address] [place] [phone] PCP - General Nurse Practitioner - [facility] 05/16/23 Machine Driller Relationship Specialty Start Date End Date Tia Núñez, WOOD INSPECTOR [address] [place] [address] PCP - General Family Medicine 10/28/22 Machine Driller Relationship Specialty Start Date End Date Tia Núñez MD [address] [place] [address] PCP - General Nurse Practitioner - [facility] 05/16/23 Machine Driller Relationship Specialty Start Date End Date Tia Núñez MD [address] [place] [address] PCP - General Nurse Practitioner - [facility] 05/16/23 Machine Driller Relationship Specialty Start Date End Date Tia Núñez MD [address] [place] [address] PCP - General Nurse Practitioner - [facility] 05/16/23 Machine Driller Relationship Specialty Start Date End Date Tia Núñez MD [address] [place] [phone] PCP - General Nurse Practitioner - [facility] 05/16/23 Machine Driller Relationship Specialty Start Date End Date Tia Núñez WOOD INSPECTOR [address] [place] [address] PCP - General Family Medicine 10/28/22 Machine Driller Relationship Specialty Start Date End Date JoTia serratoLAURIE [address] [place] [address] PCP - General Family Medicine 10/28/22 Team Status: Active Member Role Status Dates ARAM JORDAN MD Primary Care Provider Active Start: December 13, 2024 VIET MARIA MD Emergency Provider Active Start: December 13, 2024 DOMO MASTERS next of kin Active JESSICA ACUNA Guarantor Active Team Status: Active Member Role Status Dates VANESA SOLANO MD Primary Care Provider Active Start: February 03, 2025 MARY VAZQUEZ MD Emergency Provider Active Star t: February 03, 2025 DOMO SHIELDSS next of kin Active Lilibeth RESENDEZ Guarantor Active Team Status: Active Member Role Status Dates Tia Núñez , MACHINE HAMPER MAKER-C Primary Care Provider Active Team Status: Inactive Member Role Status Dates Tia Núñez , MACHINE HAMPER MAKER-C Primary Care Provider Active Start: February 26, 2025 End: February 26, 2025 Dr. Nino Sánchez DO Emergency Provider Active Start: February 26, 2025 End: February 26, 2025 Team Status: Inactive Member Role Status Dates Tia Núñez , MACHINE HAMPER MAKER-C Primary Care Provider Active Start: February 26, 2025 End: February 26, 2025 Dr. Nino Sánchez DO Attending Provider Active Start: February 26, 2025 End: February 26, 2025 Dr. Nino Sánchez DO Emergency Provider Active Start: February 26, 2025 End: February 26, 2025 Team Status: Inactive Member Role Status Dates Tia Núñez , MACHINE HAMPER MAKER-C Primary Care Provider Active Start: March 08, 2025 End: March 08, 2025 Tia Núñez , MACHINE HAMPER MAKER-C Attending Provider Active Start: March 08, 2025 End: March 08, 2025 Tia Núñez , MACHINE HAMPER MAKER-C Referring Provider Active Start: March 08, 2025 End: March 08, 2025 Team Status: Inactive Member Role Status Dates Tia Núñez , MACHINE HAMPER MAKER-C Primary Care Provider Active Start: March 15, 2025 End: March 15, 2025 JUDD Bernard Attending Provider Active Start: March 15, 2025 End: March 15, 2025 JUDD Bernard Referring Provider Active Start: March 15, 2025 End: March 15, 2025 Team Status: Inactive Member Role Status Dates JUDD Stack Attending Provider Active S tart: March 22, 2025 End: March 22, 2025 JUDD Bernard Primary Care Provider Active Start: March 22, 2025 End: March 22, 2025 JUDD Bernard Referring Provider Active Start: March 22, 2025 End: March 22, 2025 Goals (unrecognized section and content) Goals may be documented in a n alternate sectionGoals may be documented in an alternate sectionGoals may be documented in an alternate sectionGoals may be documented in an alternate sectionGoals may be documented in an alternate sectionGoals may be documented in an alternate sectionGoals may be documented in an alternate sectionGoals may be documented in an alternate section Scheduled Active and Recently Administ ered Medications (unrecognized section and content) Medication Order 06/26/2023 06/27/2023 06/28/2023 Acetaminophen (TYLENOL) tablet 975 mg (COMPLETED) 975 mg, Oral, ONCE, 1 dose, On Tue06/28/23 at 0800, Pre-op/Pre-Proc 0751 (Given - Provid er: Lluvia Sam RN) Continuous Medication Order 06/26/2023 06/27/2023 06/28/2023 Lactated ringers IV solution Intravenous, at 50 mL/hr, CONTINUOUS, Starting on Tue06/28/23 at 0700, Until Tue06/28/23 at 1445, Pre-op/Pre-Proc 0725 ($$New Bag$$ - Provider: Lluvia Sam RN)1019 (Paused - Provider: JEANIE Greco - Comment: Switch to gravity)1020 ($$New Bag$$ - Provider: JEANIE Greco)1126 (Anesthesia Volume Adjustment - Provider: JEANIE Greco)1230 (Stopped - Provider: Júnior Dickinson RN) PRN Medication Order 06/26/2023 06/27/2023 06/28/2023 Clindamycin (CLEOCIN) 900 mg in dextrose 50 ml premix IVPB 900 mg, Intravenous, Administer over 30 Minutes, ADMINISTER DIRECTED, Starting on Tue06/28/23 at 0648, Until Tue06/28/23 at 1445, ., Pre-op/Pre-Proc 0920 (Given - Provid er: Crissy Moraes APRN-DENTAL SECRETARY) EPINEPHrine PF (ADRENALIN) 1 MG/ML injection (CANCELED) NEEDED, Starting on Tue06/28/23 at 1059, Until Tue06/28/23 at 1119, Intra-op/Intra-Proc 1059 (Given - Provid er: Yanet Carolina MD - Comment: 1mg epi mixed with 5000ml Lactated Ringer irrigation) fentaNYL (SUBLIMAZE) injection 25 mcg 25 mcg, Intravenous, Administer over 2 Minutes, EVERY 5 MINUTES NEEDED, Starting on Tue06/28/23 at 1107, Until Tue06/28/23 at 1445, pain, Recovery Haloperidol lactate (HALDOL) injection 1 mg (COMPLETED) 1 mg, Intravenous, ONCE NEEDED, 1 dose, Starting on Tue06/28/23 at 1107, Until Tue06/28/23 at 2359, Refractory Nausea/vomiting, Use if patient still experiencing nausea/vomiting after 1st and 2nd line medications. Do not administer within 6 hours of intra-operative dose., Recovery 1135 (Given - Provid er: Júnior Dickinson RN) hydrALAZINE (APRESOLINE) injection 10 mg 10 mg, Intravenous, EVERY 30 MINUTES NEEDED, Starting on Tue06/28/23 at 1107, Until Tue06/28/23 at 1445, SBP > 180 SECOND line HTN, use if HR < 60., Administer over 2 minutes. Use if HR < 60. May give a total of 20 mg while in PACU. Notify MD if BP still uncontrolled after 2 mg and no other antihypertensive agents are ordered., Recovery Ketorolac (TORADOL) injection (CANCELED) NEEDED, Starting on Tue06/28/23 at 1058, Until Tue06/28/23 at 1119, Intra-op/Intra-Proc 1058 (Given - Provid er: Yanet Carolina MD - Comment: in local) Labetalol (NORMODYNE) injection 5 mg 5 mg, Intravenous, EVERY 15 MINUTES NEEDED, Starting on Tue06/28/23 at 1107, Until Tue06/28/23 at 1445, SBP > 180 FIRST line HTN. Hold if HR < 60 and give SECOND line agent., May give a total of 20 mg while in PACU. If blood pressure uncontrolled after 20mg of labetalol administered, use second line agent or notify MD. For vials: labetalol should be treated as a SINGLE USE VIAL. Discard remaining contents after one use., Recovery Morphine injection (CANCELED) NEEDED, Starting on Tue06/28/23 at 1058, Until Tue06/28/23 at 1119, Intra-op/Intra-Proc 1058 (Given - Provid er: Yanet Carolina MD - Comment: in local) Ondansetron 4mg/2ml (ZOFRAN) injection 4 mg 4 mg, Intravenous, ONCE NEEDED, 1 dose, Starting on Tue06/28/23 at 1107, Until Tue06/28/23 at 1445, Nausea / Vomiting, FIRST line antiemetic, Do not administer within 6 hours of intra-operative dose., Recovery oxyCODONE (ROXICODONE) tablet 5 mg 5 mg, Oral, EVERY 4 HOURS NEEDED, Starting on Tue06/28/23 at 1107, Until 06/28/23 at 1445, Moderate Pain, Recovery 1159 (Given - Provid er: Júnior Dickinson RN) ROPivacaine (NAROPIN) 0.5% injection (CANCELED) NEEDED, Starting on Tue06/28/23 at 1058, Until Tue06/28/23 at 1119, Intra-op/Intra-Proc 1058 (Given - Provid er: Yanet Carolina MD) FOR RECORDS PERTAINING TO PATIENTS WHO ARE OR HAVE BEEN ENROLLED IN A CHEMICAL DEPENDENCY/SUBSTANCEABUSE PROGRAM, SOME INFORMATION MAY BE OMITTED. This clinical summary was aggregated from multiple sources. Caution should be exercised in using it in the provision of clinical care. This summary normalizes information from multiple sources, and as a consequence, information in this document may materially change the coding, format and clinical context of patient data. In addition, data may be omitted in some cases. CLINICAL DECISIONS SHOULD BE BASED ON THE PRIMARY CLINICAL RECORDS. [facility] [employer] [facility]. provides no warranty or guarantee of the accuracy or completeness of information in this document.
== END | disposition home or self-care (01) ==
LOC: US 10:13
PROVIDERS: PCP Nurse Practitioner Family; Referring Provider Nurse Practitioner Family; Visit Provider Nurse Practitioner Family
DX: R10.9 Unspecified abdominal pain (principal); K59.1 Functional diarrhea
CPT/HCPCS: 76700; 82653; 83993

== ENCOUNTER 2025-05-20 05:09 | Day surgery (SDC) | payer MEDICAID, SELFPAY ==
[2025-05-20] VITALS (8 sets, daily range): BP systolic 113–141; BP diastolic 71–101; PULSE 68–87; RESP 12–16; TEMP 36.4–36.7; O2SAT 99–100; BMI 52.9
--- OUTSIDE RECORDS SUMMARY | 2025-05-20 05:12 | XMS RPT_ITS | CCD ---
Author Organization [facility] Inform ion Partnership [facility] Care Team Providers Care Business Division Chair Name Role Phone ALESIA WALKER Unavailable Unavailable Petra Morales Primary Care Provider Dr. Britni Bell Primary Care Provider [phone] Liane LEARNING SUPPORT TEACHER, LEARNING SUPPORT TEACHER-C Gianna Attending Provider Liane LEARNING SUPPORT TEACHER, LEARNING SUPPORT TEACHER-C Gianna Referring Provider Petra Morales Primary Care Provider RAYMOND BRAMBILA Attending Unavailable RAYMOND BRAMBILA Referring Unavailable PETRA MORALES Primary Care Unavailhui e Petra Morales Primary Care Provider Tia Núñez CNP Primary Care Provider [phone] Unavailable Primary Care Provider UnavailTia Richardson MD [...] Unavailable UNGERER, TIA D Primary Care Unavailable TIFFANIE SCHMIDT Attending Unavailable UNGERER, TIA D Primary Care Unavailable SCHMIDT, TIFFANIE Referring Unavailable UNGERER, TIA D Primary Care Unavailable SCHMIDT, TIFFANIE Referring Unavailable ARAM JORDAN MD Primary Care Provider VIET MARIA MD Emergency Provider VANESA SOLANO MD Primary Care Provider MARY VAZQUEZ MD Emergency Provider [phone] Ungerer LEARNING SUPPORT TEACHER-C, Tia Primary Care Provider Dr. Nino Sánchez DO Emergency Provider MARY VAZQUEZ Attending Unavailable VANESA SOLANO Primary Care Unavailable ARAM JORDAN Primary Care Unavailable VIET MARIA Attending Unavailable REMEDIOS, SYLVIA Primary Care Unavailable SYLVIA WHITTAKER Attending Unavailable SYLVIA WHITTAKER Referring Unavailable Dr. Nino Sánchez DO Attending Provider Ungerer LEARNING SUPPORT TEACHER-C, Tia Attending Provider Ungerer LEARNING SUPPORT TEACHER-C, Tia Referring Provider Luis A LEARNING SUPPORT TEACHER-CJocelyn Attending Provider [phone] LUIS ANTONIO MCDONNELL Admitting Unavailable LEMLUIS ANTONIO VALENTIN Primary Care Unavailable LUIS ANTONIO MCDONNELL Attending Unavailable TIA, UNGERER Referring Unavailable LEMLUIS ANTONIO VALENTIN Admitting Unavailable LEMLUIS ANTONIO VALENTIN Primary Care Unavailable LUIS ANTONIO MCDONNELL Attending Unavailable TIA, UNGERER Consulting Unavailable PROVIDER, UNKNOWN Consulting Unavailable NEVA ALAMO DO Primary Care Unavailable NEVA ALAMO DO Attending Unavailable NEVA ALAMO DO Admitting Unavailable UNGERER, TIA LEARNING SUPPORT TEACHER Referring Unavailable UNGERER, TIA LEARNING SUPPORT TEACHER Consulting Unavailable PROVIDER, UNKNOWN Consulting Unavailable JOERER, TAI LEARNING SUPPORT TEACHER Referring Unavailable CON TORRES Attending Unavailable CON TORRES Admitting Unavailable CON TORRES Primary Care Unavailable UNGERER, TIA LEARNING SUPPORT TEACHER Consulting Unavailable PROVIDER, UNKNOWN Consulting Unavailable YANR, TIA LEARNING SUPPORT TEACHER Consulting Unavailable NEVA ALAMO DO Attending Unavailable NEVA ALAMO DO Admitting Unavailable UNGERER, TIA LEARNING SUPPORT TEACHER Referring Unavailable NEVA ALAMO DO Primary Care Unavailable PROVIDER, UNKNOWN Consulting Unavailable NEVA ALAMO DO Primary Care Unavailable NEVA ALAMO DO Attending Unavailable NEVA ALAMO DO Admitting Unavailable LUIS ANTONIO MCDONNELL Primary Care Unavailable LUIS ANTONIO MCDONNELL Attending Unavailable LEMLUIS ANTONIO VALENTIN D Admitting Unavailable UNGERER, TIA LEARNING SUPPORT TEACHER Consulting Unavailable OSEAS, RAYMOND T Attending Unavailable OSEAS, RAYMOND T Admitting Unavailable OSEAS, RAYMOND T Primary Care Unavailable PROVIDER, UNKNOWN Consulting Unavailable OSEAS, RAYMOND T Primary Care Unavailable UNGERER, TIA LEARNING SUPPORT TEACHER Consulting Unavailable OSEAS, RAYMOND T Attending Unavailable OSEAS, RAYMOND T Admitting Unavailable PROVIDER, UNKNOWN Consulting Unavailable UNGERER, TIA LEARNING SUPPORT TEACHER Attending Unavailable UNGERER, TIA LEARNING SUPPORT TEACHER Admitting Unavailable UNGERER, TIA LEARNING SUPPORT TEACHER Primary Care Unavailable UNGERER, TIA LEARNING SUPPORT TEACHER Consulting Unavailable PROVIDER, UNKNOWN Consulting Unavailable TIA, YANR Consulting Unavailable MOI MADRIGAL MD Attending Unavailable MOI MADRIGAL MD Admitting Unavailable MOI MADRIGAL MD Primary Care Unavailable PROVIDER, UNKNOWN Consulting Unavailable MIKO VARMA DO Attending Unavailable MIKO VARMA DO Admitting Unavailable UNGERER, TIA LEARNING SUPPORT TEACHER Consulting Unavailable UNGERER, TIA LEARNING SUPPORT TEACHER Referring Unavailable MIKO VARMA DO Primary Care Unavailable PROVIDER, UNKNOWN Consulting Unavailable UNGERER, TIA LEARNING SUPPORT TEACHER Consulting Unavailable UNGERER, TIA LEARNING SUPPORT TEACHER Referring Unavailable KAMILA VINES DO Attending Unavailable KAMILA VINES DO Admitting Unavailable KAMILA VINES DO Primary Care Unavailable PROVIDER, UNKNOWN Consulting Unavailable GREG NOEL MD Attending Unavailable GREG NOEL MD Admitting Unavailable UNGERER, TIA LEARNING SUPPORT TEACHER Consulting Unavailable GREG NOEL MD Primary Care Unavailable PROVIDER, UNKNOWN Consulting Unavailable Jocelyn Tracey Other Provider UNGERER MAST MAKER-INSEAM LEVELER, TIA Primary Care Physician UNGERER MAST MAKER-INSEAM LEVELER, TIA Primary Care STEPHANIE Stewart DO Attending Unavailable Ungerer, Tia Primary Care Unavailable Jocelyn Gunn Attending Unavailable UngererTia Referring Unavailable Ungerer, Tia Referring Unavailable Ungerer, Tia Primary Care Unavailable Ungerer, Tia Attending Unavailable Ungerer, Ita Referring Unavailable Jocelyn Gunn Attending Unavailable Ungerer, Tia Attending Unavailable Ungerer, Tia Referring Unavailable Ungerer, Tia Primary Care Unavailable Ungerer, Tia Attending Unavailable Ungerer, Tia Referring Unavailable Ungerer, Tia Primary Care Unavailable Ungur, Remus Attending Unavailable Ungerer, Tia Primary Care Unavailable Ungerer, Tia Primary Care Unavailable Sánchez, Nino Attending Unavailable Ungerer, Tia Primary Care Unavailable Friend, Carlos Attending Unavailable Ungerer, Tia Referring Unavailable Ungerer, Tia Referring Unavailable Ungerer, Tia Attending Unavailable Ungerer, Tia Primary Care Unavailable Gunn, Jocelyn Consulting Unavailable Ungerer, Tia Referring Unavailable Ungerer, Tia Primary Care Unavailable Ungerer, Tia Attending Unavailable Gunn, Jocelyn Consulting Unavailable Allergies Allergy Classification Reported Allergen(s) Allergy Type Date of Onset Reaction(s) Facility (5 sources) Penicillins; Translations: [PENICILLINS] Drug Allergy 1 [facility] (18 sources) Penicillins Drug Allergy 1 [facility] (12 sources) Penicillins; Translations: [penicillins] Propensity to adverse reactions to drug 1 Hives, Itching, Rash [facility] Work Phone: (7 sources) Penicillins Allergy to substance 5 [facility] (2 sources) Penicillins Drug allergy (disorder) 5 [facility] (1 source) Amoxicillin Drug Allergy [facility] (1 source) Penicillins Drug allergy (disorder) [facility] (1 source) Amoxicillin; Translations: [amoxicillin] Drug Allergy [facility] Medications Current Medications Medication Drug Class(es) Dates [...] 06-28-2023 Acetaminophen (TYLENOL) tabl et 975 mg acetaminophen 325 mg / HYDROcodone bitartrate 5 mg oral tablet (8 sources) Opioid Agonist Start: 04-22-2025 End: 04-23-2025 Finley 325- 5 mg oral tablet Dose = 1 tab(s), Oral, q6h, PRN for pain, May take 1-2 tablets / dose, X 1 day(s), # 2 tab(s), 0 Refill(s), Acute bilateral back pain, 136.4 Start Date: 04/22/25 Stop Date: 04/23/25 Status: Ordered Quantity: 2.0 Unit: tab(s) Repeat number: 1 Indications: Dorsalgia, unspecified; Start: 07-30-2024 End: 02-26-2025 Hydrocodone-Acetaminophen 5- 325 mg tablet Discontinued 1 {tbl} PO EVERY 4 HOURS NEEDED as needed for Pain 10 2 0 July 30, 2024 February 26, 2025 1:55pm Cyst of ovary Unspecified ovarian cyst, unspecified side albuterol 0.83 mg/ml inhalation solution (20 sources) beta2-Adrenergic Agonist Start: 03-15-2025 Albut kelley Sulfate (Ventolin Hfa) 90 mcg/actuation HFA aerosol inhaler Active 2 NMA INHALATION Q4H as needed for shortness of breath or wheezing 8.5 5 March 15, 2025 2:27pm Asthma Severe persistent asthma, uncomplicated Start: 05-27-2021 End: 03-15-2025 take 2.5 mg by inhalation every four hours as needed for wheezing Albuterol Sulfate 2.5 mg /3 mL (0.083 %) solution for nebulization Discontinued 2.5 mg INHALATION Q4H as needed for shortness of breath or wheezing 180 1 December 21, 2022 8:05am March 15, 2025 2:33pm Asthma Severe persistent asthma, uncomplicated Start: 07-23-2019 End: 03-15-2025 Albuterol Sulfate (Ventolin Hfa) 90 mcg/actuation HFA aerosol inhaler Discontinued 1 NMA INHALATION EVERY 6 HOURS 8.5 1 December 21, 2022 8:05am March 15, 2025 2:33pm Asthma Severe persistent asthma, uncomplicated Start: 07-23-2019 End: 05-27-2021 take 1 puff(s) by inhalation every six hours Albuterol Sulfate (Ventolin Hfa) 90 mcg/actuation HFA aerosol inhaler Active 1 PUFF INHALATION EVERY 6 HOURS 8.5 May 27, 2021 7:57am albuterol 0.63mg /3mL Nebu Soln ALBUTEROL INHALA TION Inhale as instructed. 0 Active Comment on above: Inhale as instructed . apixaban 2.5 mg oral tablet (8 sources) Factor Xa Inhibitor Start: 06-28-20 23 take 1 tablet by mouth twice daily apixaban 2.5 MG tablet Indications: Right hip impingement syndrome Take 1 tablet by mouth 2 times daily. 42 tablet 0 06/28/2023 Active azithromycin 250 mg oral tablet (10 sources) Macrolide Antimicrobial Start: 05-13-20 25 Azithromycin (Zithromax) 250 mg tablet Active 0 PO .COMPLEX 6 0 May 13, 2025 12:00am For 250 mg dose pack: take 500 mg today (day 1), then 250 mg for 4 days (days 2-5) PO Start: 11-30-2019 End: 11-30-2019 take 2-5 tablets by mouth once daily Azithromycin 250 mg tablet Discontinued 0 PO .COMPLEX November 30, 2019 1:00am November 30, 2019 2:50pm take 500 mg today (day 1), then 250 mg for 4 days (days 2-5) PO cephalexin 500 mg oral capsule (2 sources) Cephalosporin Antibacterial Start: 02-03-2025 take 1 capsule by mouth twice daily Cephalexin (Keflex 500mg) 500 MG Capsule Active 500 MG PO Two Times A Day February 03, 2025 12:00am Start: 02-03-2025 take 1 capsule by mo [facility] three times daily Cephalexin (Keflex 500mg) 500 [...] Comment on above: [facility] with [facility]. 12 hr dextromethorphan polistirex 6 mg/ml extended release suspension (4 sources) Uncompetitive P-lpcrdu-A-asparta te Receptor Antagonist, Sigma-1 Agonist Start: 03-15-2025 take 1 mL by mouth every twelve hours as needed for cough Dextromethorphan Polistirex (Delsym 12 Hour) 30 mg/5 mL suspension,extended rel 12 hr Active 10 mL PO Q12H as needed for cough 89 0 March 15, 2025 12:00am Lower respiratory tract infection Unspecified acute lower respiratory infection DISABILITY PLACARD (9 sources) Start: 05-27-2023 End: 09-01-2023 DISABILITY PLACARD Disability placard end date 09/01/23 1 Each 0 05/27/2023 09/01/2023 Active DULoxetine 60 mg delayed release oral capsule (20 sources) Serotonin and Norepinephrine Reuptake Inhibitor Start: 02-26-2025 End: 03-08-2025 take 1 capsule by mouth once daily Duloxetine 60 mg capsule,delayed release(DR/EC) Active 60 mg PO DAILY 90 1 March 08, 2025 3:52pm Anxiety Anxiety disorder, unspecified Start: 03-29-2023 take 1 capsule by mo [facility] once daily DULoxetine [address] Particles capsule DR Take 1 capsule by mouth daily. 0 03/29/2023 Active Comment on above: Take 60 mg by mouth once daily. famotidine 40 mg oral tablet (4 sources) Histamine-2 Receptor Antagonist Start: 03-22-20 take 1 tablet by mouth at bedtime Famotidine 40 mg tablet Active 40 mg PO AT BEDTIME 30 3 March 22, 2025 12:00am fluticasone / salmeterol (1 source) Corticosteroid, beta2-Adrenergic Agonist Start: 12-17-19 take 1 dose by inhalation twice daily Advair Diskus 100 mcg-50 mcg inhalation powder Dose = 1 puff(s), Inhalation, BID, # 28 EA, 4 Refill(s) Start Date: 12/16/14 Status: Ordered Quantity: 28.0 Unit: EA Repeat number: 5 Fluticasone Furoate-Vilanterol (20 sources) Corticosteroid, beta2-Adrenergic Agonist Start: 11-28-19 Fluticasone Furoate-Vilanterol (Breo Ellipta) 200-25 mcg/dose blister with device Active 1 NMA INHALATION DAILY 60 0 November 28, 2024 1:07pm Asthma Severe persistent asthma, uncomplicated Start: 11-28-2024 Fluticasone Fu roate-Vilanterol (Breo Ellipta) 200-25 mcg/dose blister with device Active 1 NMA INHALATION DAILY 60 November 28, 2024 1:07pm Start: 12-21-2022 End: 11-28-2024 Fluticasone Furoate-Vilanter ol (Breo Ellipta) 200-25 mcg/dose blister with device Discontinued 1 NMA INHALATION DAILY 60 5 December 21, 2022 8:05am November 28, 2024 1:07pm Asthma Severe persistent asthma, uncomplicated Start: 12-21-2022 End: 11-28-2024 Fluticasone Furoate-Vilanter ol (Breo Ellipta) 200-25 mcg/dose blister with device Discontinued 1 NMA INHALATION DAILY 60 December 21, 2022 8:05am November 28, 2024 1:07pm Start: 11-30-2022 End: 12-21-2022 Fluticasone Furoate-Vilanter ol (Breo Ellipta) 200-25 mcg/dose blister with device Discontinued 1 NMA INHALATION DAILY 60 1 November 30, 2022 3:44pm December 21, 2022 8:06am Asthma Severe persistent asthma, uncomplicated Start: 11-30-2022 End: 12-21-2022 Fluticasone Furoate-Vilanter ol (Breo Ellipta) 200-25 mcg/dose blister with device Discontinued 1 NMA INHALATION DAILY 60 November 30, 2022 3:44pm December 21, 2022 8:06am Start: 11-26-2021 End: 11-30-2022 Fluticasone Furoate-Vilanter ol (Breo Ellipta) 200-25 mcg/dose blister with device Discontinued 1 NMA INHALATION DAILY 60 11 November 26, 2021 10:34am November 30, 2022 3:45pm Asthma Severe persistent asthma, uncomplicated Start: 11-26-2021 End: 11-30-2022 Fluticasone Furoate-Vilanter ol [...] device Discontinued 1 NMA INHALATION DAILY 60 11 May 27, 2021 7:57am November 26, 2021 [...] device Discontinued 1 NMA INHALATION DAILY 60 6 March 20, 2020 1:10pm May 27, 2021 [...] / losartan potassium 50 mg oral tablet (20 sources) Thiazide Diuretic, Angiotensin 2 Receptor Fernie Start: 02-26-2025 End: 03-08-2025 Losartan-Hydrochloroth iazide 50-12.5 mg tablet Active 1 {tbl} PO DAILY 90 1 March 08, 2025 3:53pm Hypertension Essential (primary) hypertension Start: 04-27-2023 take 1 tablet by gerber [...] time. 12 tablet 0 06/29/2023 Active levonorgestrel 0.379411 mg/hr intrauterine system (20 sources) Progestin, Progestin-containing [...] tablet (20 sources) Nonsteroidal Anti-inflammatory Drug Start: 3 take 1 tablet by mouth once daily [...] With food. naproxen 500 mg oral tablet (6 sources) Nonsteroidal Anti-inflammatory Drug Start: take 1 tablet by mouth twice daily at mealtime for pain Naproxen 500 mg tablet Active 500 mg PO TWICE A DAY as needed for pain March 14, 2025 12:00am Back pain Dorsalgia, unspecified Take with food Start: 02-03-2025 take 1 tablet by gerber th twice daily as needed for pain Naproxen (Naprosyn) 500 MG Tablet Active 500 MG PO Two Times A Day as needed for pain February 03, 2025 12:00am Nebulizer machine (7 sources) Start: 06-18-2024 Nebulizer mach ine Active 0 .ROUTE .MEDSUPPLY 1 June 18, 2024 12:00am Asthma Severe persistent asthma, uncomplicated As directed Start: 06-18-2024 Nebulizer mach ine Active 0 .ROUTE .MEDSUPPLY June 18, 2024 12:00am As directed ondansetron 4 mg disintegrating oral tablet (16 sources) Serotonin-3 Receptor Antagonist Start: 02-26-2025 take 1 tablet by mouth every six hours as needed for nausea and vomiting Ondansetron 4 mg tablet,disintegrating Active 4 mg PO EVERY 6 HOURS as needed for nausea and vomiting 20 0 February 26, 2025 12:00am Start: 06-28-2023 take 1 tablet by gerber th every eight hours as needed for nausea Ondansetron 4 MG tablet Indications: Right hip impingement syndrome Take 1 tablet by mouth every 8 hours as needed for Nausea / Vomiting. 30 tablet 1 06/28/2023 Active Start: 06-28-2023 End: 06-28-2023 Ondansetron 4mg/2ml (ZOFRAN) injection 4 mg oxyCODONE hydrochloride 5 mg oral tablet (20 sources) Opioid Agonist Start: 07-11-2023 End: 07-16-2023 [...] mg PO Q8H as needed for pain 5 0 August 01, 2020 August 01, 2020 1:08pm Start: 08-01-2020 End: 08-08-2020 take 1 capsule by mouth every eight hours as needed for pain Oxycodone 5 MG capsule Discontinued 5 mg PO EVERY 8 HOURS NEEDED as needed for Pain Score 6-10 5 7 0 August 01, 2020 August 07, 2020 1:00am August 08, 2020 1:03am Ruptured ovarian cyst Unspecified ovarian cyst, unspecified side Start: 08-01-2020 End: 08-08-2020 take 1 capsule by mouth every eight hours as needed for pain Oxycodone 5 MG capsule Discontinued 5 mg PO EVERY 8 HOURS NEEDED as needed for Pain Score 6-10 5 7 0 August 01, 2020 August 07, 2020 1:00am August 08, 2020 1:03am Ruptured ovarian cyst Unspecified ovarian cyst, unspecified side pantoprazole 40 mg delayed release oral tablet (17 sources) Proton Pump Inhibitor Start: 03-22-2025 Pantoprazole 40 mg tablet,delayed release (DR/EC) Active 40 mg PO TWICE A DAY 60 March 22, 2025 12:00am take 30minutes before eating breakfast and dinner. Start: 03-29-2023 take 1 tablet by gerber th once daily pantoprazole DR (PROTONIX) 40 mg tablet Take 1 tablet by mouth once daily. 0 03/29/2023 Active Comment on above: Take 1 tablet by gerber th once daily. phenazopyridine hydrochloride 200 mg oral tablet (1 source) Start: 02-04-20 take 1 tablet by mouth three times daily as needed for pain Phenazopyridine Hcl (Pyridium) 200 MG Tablet Active 200 MG PO Three Times A Day as needed for Moderate Pain (4-6) 6 February 03, 2025 8:55pm predniSONE 20 mg oral tablet (11 sources) Start: 05-13-20 25 take 2 tablets by mouth once daily Prednisone 20 mg tablet Active 40 mg PO daily 10 5 0 May 13, 2025 12:00am May 17, 2025 12:00am Start: 11-30-2019 End: 07-31-2020 take 3 tablets by mouth once daily at mealtime Prednisone 20 mg tablet Discontinued 60 mg PO daily 15 November 30, 2019 1:00am July 31, 2020 11:13am administer with food or milk Start: 11-30-2019 End: 07-31-2020 take 60 mg by mouth once daily at mealtime Prednisone Discontinued 60 MG PO daily November 30, 2019 1:00am July 31, 2020 11:13am administer with food or milk Start: 12-17-2014 take 2 tablets by mo [facility] once daily, then take 1 tablet by mouth once daily, then take 0.5 tablet by mouth once daily predniSONE 20 mg oral tablet See Instructions, 2 tab(s) Oral qDay for 3 days. Then Take 1 tablet qDay for 3 days. Then take 1/2 tablet qDay for 4 days., # 11 tab(s), 0 Refill(s) Start Date: 12/17/14 Status: Ordered Quantity: 11.0 Unit: tab(s) Repeat number: 1 take 1 tablet by gerber th once daily predniSONE 5 MG tablet Take 1 tablet by mouth daily. For 5 days 0 Active prochlorperazine 5 mg oral tablet (4 sources) Phenothiazine Start: 03-18-2025 take 1 tablet by mouth three times daily as needed for nausea and vomiting Prochlorperazine Maleate (Compazine) 5 mg tablet Active 5 mg PO THREE TIMES A DAY as needed for nausea and vomiting 14 0 March 18, 2025 12:00am Nausea Nausea traZODone hydrochloride 50 mg oral tablet (5 sources) Serotonin Reuptake Inhibitor Start: 03-08-2025 take 1 tablet by mouth at bedtime Trazodone 50 mg tablet Active 50 mg PO AT BEDTIME 60 March 08, 2025 12:00am Depression Depression, unspecified Completed/Discontinued Medications Medication Drug Class(es) Dates Sig (Normalized) Sig (Original) acetaminophen 325 mg / oxyCODONE hydrochloride 5 mg oral tablet (20 sources) Opioid Agonist Start: 12-21-2022 oxyCODONE-acetamin ophen (PERCOCET) 5-325 mg tablet TAKE ONE TABLET TWICE DAILY NEEDED FOR SEVERE pain 0 12/21/2022 Active Start: 12-21-2022 End: 02-26-2025 Oxycodone-Acetaminophen (Per cocet) 5-325 mg tablet Discontinued 1 {tbl} PO Q4H as needed 0 December 21, 2022 12:00am February 26, 2025 1:55pm Comment on above: TAKE ONE TABLET TWIC E DAILY NEEDED FOR SEVERE pain benzonatate 200 mg oral capsule (7 sources) Non-narcotic Antitussive Start: End: take 1 capsule by mouth three times daily as needed for cough Benzonatate 200 mg capsule Discontinued 200 mg PO THREE TIMES A DAY as needed for cough 90 0 December 21, 2022 12:00am February 26, 2025 1:55pm Asthma Severe persistent asthma, uncomplicated calcium chloride 0.0014 meq/ml / potassium chloride 0.004 meq/ml / sodium chloride 0.103 meq/ml / sodium lactate 0.028 meq/ml injectable solution (1 source) Start: End: Lactated ringers IV solution cetirizine hydrochloride 10 mg oral capsule (8 sources) Histamine-1 Receptor Antagonist Start: End: take 1 capsule by mouth once daily Cetirizine (Zyrtec) 10 mg capsule Discontinued 10 mg PO DAILY 30 July 24, 2019 12:00am July 31, 2020 11:12am 50 ml clindamycin 18 mg/ml injection (1 source) Lincosamide Antibacterial Start: End: Clindamycin (CLEOCIN) 900 mg in dextrose 50 ml premix IVPB colesevelam hydrochloride 625 mg oral tablet (4 sources) Bile Acid Sequestrant Start: End: take 3 tablets by mouth twice daily Colesevelam (Welchol) 625 mg tablet Discontinued 1875 mg PO TWICE A DAY 180 30 March 22, 2025 12:00am April 20, 2025 12:00am April 21, 2025 12:08am colestipol hydrochloride 1000 mg oral tablet (12 sources) Bile Acid Sequestrant Start: End: take 1 tablet by mouth twice daily colestipol (COLESTID) 1 gram tablet Take 1 tablet by mouth twice daily. 60 tablet 0 03/02/2022 10/28/2022 Discontinued Comment on above: Take 1 tablet by gerber twice daily. dicyclomine hydrochloride 20 mg oral tablet (12 sources) Anticholinergic Start: End: take 1 tablet by mouth three times daily as needed Dicyclomine 20 mg tablet Discontinued 20 mg PO THREE TIMES A DAY as needed for abdominal cramping 30 March 08, 2025 3:55pm May 13, 2025 10:55am Colitis Noninfective gastroenteritis and colitis, unspecified Levonorgestrel-Ethin yl Estrad (8 sources) Progestin, Estrogen, Progestin-containing Intrauterine Device Start: End: take 1 tablet by mouth once daily Levonorgestrel-Ethinyl Estrad 0.1-20 mg-mcg tablet Discontinued 1 {tbl} PO DAILY 84 4 January 16, 2021 12:00am November 26, 2021 10:13am Take active pills only Start: 01-16-2021 End: 11-26-2021 take 1 tablet by mouth once daily Levonorgestrel-Ethinyl Estrad 0.1-20 mg-mcg tablet Discontinued 1 {tbl} PO DAILY 84 January 16, 2021 12:00am November 26, 2021 10:13am Take active pills only Start: 01-16-2021 End: 11-26-2021 take 1 tablet by mouth once daily Levonorgestrel-Ethinyl Estrad Discontinued 1 TABLET PO DAILY January 16, 2021 12:00am November 26, 2021 10:13am Take active pills only Norgestimate-Ethinyl Estradiol (9 sources) Progestin, Estrogen Start: 08-01-2020 End: 01-16-2021 [...] mg-mcg tablet Discontinued 1 {tbl} PO DAILY August 01, 2020 12:00am January [...] placebo pills and start new pack. Start: 12-14-2014 take 1 tablet by gerber th once daily Sprintec 0.25 mg-35 mcg oral tablet Dose = 1 tab(s), Oral, Daily, # 28 tab(s), 0 Refill(s) Start Date: 12/14/14 Status: Ordered Quantity: 28.0 Unit: tab(s) Repeat number: 1 2 ml fentaNYL 0.05 mg/ml injection (1 source) Opioid Agonist Start: 06-28-2023 End: 06-28-2023 fentaNYL (SUBLIMAZE) injection 25 mcg 120 actuat formoterol fumarate 0.005 mg/actuat / mometasone furoate 0.1 mg/actuat metered dose inhaler (8 sources) Corticosteroid, beta2-Adrenergic Agonist Start: 07-23-2019 End: [...] 10 mg ibuprofen 800 mg oral tablet (18 sources) Nonsteroidal Anti-inflammatory Drug Start: 10-29-2021 End: [...] 6 HOURS NEEDED as needed for Pain 20 0 September 07, 2021 7:16pm December 21, 2022 7:42am Start: 07-31-2020 End: 01-16-2021 take 1 tablet by mouth every eight hours as needed for pain Ibuprofen 800 mg tablet Discontinued 800 mg PO Q8H as needed for pain 30 July 31, 2020 12:00am January 16, 2021 [...] on above: Take 1 tablet by gerber once daily. 1 ml medroxyPROGESTERone acetate 150 mg/ml injection (8 sources) Progestin Start : 03-23 End: 11-26 inject 150 mg by intramuscular injection every three months Medroxyprogesterone (Depo-Provera) 150 mg/mL suspension Discontinued 150 mg IM every 3 months 10 06March 23, 2021 12:00am November 26, 2021 10:12am 24 hr metFORMIN hydrochloride 500 mg extended release oral tablet (20 sources) Biguanide Start : 12-07 End: 10-28 [...] by Nasal route once for 1 dose. [place] into the nose as directed. Call 911. [...] capsule,delayed release(DR/EC) Discontinued 20 mg PO DAILY 30 October 30, 2019 1:00am July 31, 2020 11:13am Comment on above: Take 1 capsule by [facility] once daily. raNITIdine 150 mg oral tablet (8 sources) Histamine-2 Receptor Antagonist Start: 9 End: 0 take 1 capsule by mouth once daily Ranitidine Hcl 150 mg capsule Discontinued 150 mg PO DAILY July 23, 2019 12:00am October 30, 2019 10:48am Start: 07-23-2019 End: 10-30-2019 take 150 mg by mouth once daily Ranitidine Hcl Discontinued 150 MG PO DAILY July 23, 2019 12:00am October 30, 2019 10:48am sulfamethoxazole 800 mg / trimethoprim 160 mg oral tablet (8 sources) Dihydrofolate Reductase Inhibitor Antibacterial, Sulfonamide Antimicrobial Start: 11-30-2019 End: 07-31-2020 Sulfamethoxazole-Trimethopri m (Bactrim Ds) 800-160 mg tablet Discontinued 1 {tbl} PO TWICE A DAY 20 November 30, 2019 1:00am July 31, 2020 11:13am Problems Active Problems Problem Classification Problem Date Documented Da te Episodic/Chronic Abdominal pain (20 sources) Generalized abdominal pain; Translations: [Generalized abdominal pain] Onset: 3 Episodic Allergic reactions (9 sources) Environmental allergy; Translations: [Other allergy status, other than to drugs and biological substances] Onset: 4 10-30-2019 Episodic Anxiety disorders (18 sources) Anxiety; Translations: [Anxiety disorder, unspecified] Onset: 3 Chronic Asthma (20 sources) Asthma; Translations: [Unspecified asthma, uncomplicated] Onset: 5 Chronic Complication of device; implant or graft (1 source) Pain; Translations: [Pain due to genitourinary prosthetic devices, implants and grafts, initial encounter] Episodic Diseases of white blood cells (8 sources) Leukocytosis; Translations: [Elevated white blood cell count, unspecified] 10-30-2019 Chronic Esophageal disorders (20 sources) Gastroesophageal reflux disease; Translations: [Gastro-esophageal reflux disease without esophagitis] Onset: 3 Chronic Essential hypertension (16 sources) Essential hypertension; Translations: [Essential (primary) hypertension] Onset: 3 08-09-2023 Chronic Genitourinary symptoms and ill-defined conditions (8 sources) Blood in urine; Translations: [Hematuria, unspecified] 03-15-2025 Episodic Mood disorders (10 sources) Depressive disorder; Translations: [Depression] 03-08-2025 Chronic Nausea and vomiting (9 sources) Nausea; Translations: [Nausea] Onset: 5 03-18-2025 Episodic Noninfectious gastroenteritis (16 sources) Colitis; Translations: [Noninfective gastroenteritis and colitis, unspecified] Onset: 5 Episodic Other endocrine disorders (10 sources) Polycystic ovary syndrome; Translations: [Polycystic ovarian [...] Onset: 3 08-29-2023 Episodic Other gastrointestinal disorders (8 sources) Diarrhea; Translations: [Diarrhea, unspecified] 03-22-2025 Episodic Other gastrointestinal disorders (1 source) Diarrhea, unspecified; Translations: [Diarrhea, unspecified] Onset: 5 Episodic Other lower respiratory disease (8 sources) Lower respiratory tract infection; Translations: [Unspecified acute lower respiratory infection] 03-15-2025 Episodic Comment on above: s/p hospitalization Other non-traumatic joint disorders (9 sources) Hip pain; Translations: [Pain in right [...] Episodic Other nutritional; endocrine; and metabolic disorders (10 sources) Morbid obesity; Translations: [Morbid (severe) obesity [...] cervix] 08-09-2023 Episodic Other upper respiratory disease (8 sources) Allergic rhinitis; Translations: [Allergic rhinitis, unspecified] 10-30-2019 Chronic Other upper respiratory disease (1 source) Allergic rhinitis, unspecified; Translations: [Allergic rhinitis, cause unspecified] Chronic Other upper respiratory infections (1 source) Chronic sinusitis, unspecified; Translations: [Chronic sinusitis, unspecified] Onset: 5 Chronic Ovarian cyst (20 sources) Cyst of ovary; Translations: [Unspecified ovarian cyst, unspecified side] Onset: 5 Episodic Residual codes; unclassified (8 sources) History of operative procedure on foot; [...] Spondylosis; intervertebral disc disorders; other back problems (20 sources) Lumbar radiculopathy; Translations: [Radiculopathy, lumbar region] Onset: 5 03-30-2022 Episodic Unclassified (1 source) Unknown / UNK(Unknown) Onset: 8 Unclassified (2 sources) Post Op Visit; Translations: [Post Op Visit] Onset: 3 Unclassified (7 sources) K52.9 - Noninfective gastroenteritis and colitis, unspecified Unclassified (1 source) Eye glasses, device (physical object) 12-14-2014 Urinary tract infections (1 source) Urinary tract infectious disease; Translations: [Urinary tract infection, site not specified] 02-03-2025 Episodic Viral infection (8 sources) Disease caused by 2019-nCoV; Translations: [COVID-19] [...] Reference Range Facility Internal Medicine Office Vis keith 05-13-2025 Internal Medicine Office Visit [facility] [address] [place] [address] OFFICE VISIT Date of Service: 05/13/25 MR#: [id number] Acct: [id number] Name: JESSICA ACUNA Rep #: [id number] : 1995 Provider: JUDD kemp Age/Sex: 30/F Location: [facility] Status: Signed Intake Vital Signs 03/15/25 13:49 05/13/25 10:56 Height 5 ft 6 in 5 ft 6 in Weight: 327 lb BMI 52.7 BP 130/80 H Blood Pressure Location Lt brachial Position Sitting Respiration 16 Pulse 103 H Pulse Source Monitor Temp 98.0 F Temp Source Temporal Pulse Oximetry (%) 99 Oxygen Delivery Method room air Intake Visit Reasons: Not feeling well. Headache. Wheezing Chief Complaint: wheezing, cough, sinus congestion Creative Engagement Director Required: No Accompanied by: Self Is patient in pain?: Yes Allergies Penicillins Allergy (Verified 05/13/25 10:51) rash Medications ???Medication ???Instructions ???Recorded ???Confirmed ???Type levonorgestrel (Mirena) 1 insert intrauterine ONCE 2 05/13/25 History Nebulizer machine #1 ea 06/18/24 05/13/25 Rx fluticasone furoate 200 1 inh inhalation DAILY #60 ea 11/0405/13/25 Rx mcg-vilanterol 25 mcg/dose inhalation powder (Breo Ellipta) ondansetron 4 mg disintegrating 4 mg PO Q6H PRN nausea and 5 05/13/25 Rx tablet vomiting #20 tabs duloxetine 60 mg capsule,delayed 60 mg PO DAILY #90 caps 03/08/25 0 05/13/25 Rx release losartan 50 mg-hydrochlorothiazide 1 tab PO DAILY #90 tabs 03/08/25 05/13/25 Rx 12.5 mg tablet trazodone 50 mg tablet 50 mg PO QHS #60 tabs 03/08/2508/27 Rx naproxen 500 mg tablet 500 mg PO BID PRN pain #30 tabs 05/13/25 Rx albuterol sulfate 2.5 mg/3 mL 2.5 mg (3 mL) inhalation Q4H PRN 0 03/15/25 05/13/25 Rx (0.083 %) solution for nebulization shortness of breath or wheezing #180 mL albuterol sulfate 90 mcg/actuation 2 puff inhalation Q4H PRN 05/13/25 Rx aerosol inhaler (Ventolin HFA) shortness of breath or wheezing #8.5 grams dextromethorphan polistirex 30 10 ml PO Q12H PRN cough #89 mL 05/13/25 Rx mg/5 mL oral susp ext.release 12hr (Delsym 12 hour) prochlorperazine maleate 5 mg 5 mg PO TID PRN nausea and 5 05/13/25 Rx tablet (Compazine) vomiting #14 tabs famotidine 40 mg tablet 40 mg PO QHS #30 tabs 03/22/2508/27 Rx pantoprazole 40 mg tablet,delayed 40 mg PO BID #60 tabs 03/22/25 Rx release azithromycin 250 mg tablet See Rx Instructions PO .COMPLEX #6 08/11/25 08/11/25 Rx (Zithromax) tabs prednisone 20 mg tablet 40 mg (2 x 20 mg) PO QDAY 5 days 0 05/13/25 05/13/25 Rx #10 tabs PFSH Medical History Depression PCOS (polycystic ovarian [...] at home: Yes HPI HPI Chief Complaint: wheezing, cough, sinus congestion Details: JESSICA ACUNA, is a 30 F who presents to the office today for cough sinus pressure sore throat and headache. Onset: Symptoms began approximately 1 week ago, initially mild but have gradually worsened. Location: Symptoms are primarily respiratory, with the cough originating from the chest and wheezing, along with sinus pain pressure. Duration: Symptoms have been continuous for 1 week. Character/Quality: The cough is productive of yellow to green sputum, accompanied by a sensation of tightness in the chest and wheezing. Also sinus pressure Severity: Severity rated at 6/10, impacting sleep and daily activities. Modifying Factors: Symptoms slightly improve with rest and xbzo-[id number]-[id number] cough syrup, but worsen with physical exertion. Associated Symptoms: Sinus headaches and mild fatigue, no fever or chills. Context: History of allergies and asthma does get weekly allergy shots. No known exposure to infections. Risk Factors: History of asthma, allergies, smoker. Impact on Daily Life: Difficulty performing routine tasks and reduced exercise tolerance. (more content not included)... Normal [facility] LABORATORYOrdered By: Jonathon greer on 04-22-2025 Appearance (U) Slightly Cloudy *ABN* (04/22/25 4:26 PM) Invalid Interpretation Code Clear AO Auto Urine SS Bilirubin Ql (U) Negative (04/22/25 4:26 PM) Normal Negative AO Auto Urine SS Color (U) Yellow (04/22/25 4:26 PM) Normal AO Auto Urine SS Glucose Test strip (U) [Mass/Vol] Negative Normal Negative AO Auto Urine SS HCG ( test) Ql Negative (04/22/25 4:26 PM) Normal AO Manual Urine SS Hemoglobin Auto test strip (U) [Mass/Vol] Negative (04/22/25 4:26 PM) Normal Negative AO Auto Urine SS Ketones Ql (U) Negative Normal Negative AO Auto Urine SS test (u) int Not detected Invalid Interpretation Code AO Manual Urine SS UA Leuk Est Negative (04/22/25 4:26 PM) Normal Negative AO Auto Urine SS UA Nitrite Negative (04/22/25 4:26 PM) Normal Negative AO Auto Urine SS UA pH 6.0 (04/22/25 4:26 PM) Normal 5.0 - 8.0 AO Auto Urine SS UA Protein Trace mg/dL Normal Negative AO Auto Urine SS UA Spec Grav 1.025 (04/22/25 4:26 PM) Normal 1.015-1.025 AO Auto Urine SS UA Specimen Type Clean Catch (04/22/25 4:26 PM) Normal AO Auto Urine SS UA Urobilinogen 0.2 E.U./dL Normal 0.2-1.0 AO Auto Urine SS LABORATORYOrdered By: Carlos Pfeiffer on 04-22-2025 Bacteria LM.HPF (Urine sed) [#/Area] 1 /[HPF] Invalid Interpretation Code Negative AO Auto Urine SS UA Mucous 2+ /HPF Normal AO Auto Urine SS UA RBC Negative Normal 0-2 AO Auto Urine SS UA Squam Epithelial 3-5 /HPF Normal 0-20 AO Au to Urine SS WBC LM.HPF (Urine sed) [#/Area] 0-2 /HPF Normal 0-5 AO Auto Urine SS PREGUon 04-22-2025 HCG ( test) Ql (U) Negative Normal [facility] Comment on above: Performed By: #### U AMIC, UA, PREGU #### [address] [address] test (u) int Not detected Invalid Interpretation Code [facility] Comment on above: Performed By: #### U AMIC, UA, PREGU #### [place] [address] UAon 04-22-2025 Color (U) Yellow Normal [facility] Comment on above: Performed By: #### U AMIC, UA, PREGU #### [place] [address] Glucose (U) [Mass/Vol] Negative Normal Negative [facility] Comment on above: Performed By: #### U AMIC, UA, PREGU #### [place] [address] Ketones Ql (U) Negative Normal Negative [facility] Comment on above: Performed By: #### U AMIC, UA, PREGU #### [place] [address] UA Appear Slightly Cloudy Abnormal Clear [facility] Comment on above: Performed By: #### U AMIC, UA, PREGU #### [address] [address] UA Blood Negative Normal Negative [facility] Comment on above: Performed By: #### U AMIC, UA, PREGU #### [address] [address] UA Leuk Est Negative Normal Negative [facility] Comment on above: Performed By: #### U AMIC, UA, PREGU #### [place] [address] UA Nitrite Negative Normal Negative [facility] Comment on above: Performed By: #### U AMIC, UA, PREGU #### [place] [address] UA pH 6.0 Normal 5.0 - 8.0 [facility] Comment on above: Performed By: #### U AMIC, UA, PREGU #### [place] [address] UA Protein Trace Normal Negative [facility] Comment on above: Performed By: #### U AMIC, UA, PREGU #### [address] [address] UA Spec Grav 1.025 Normal 1.015-1.025 [facility] Comment on above: Performed By: #### U AMIC, UA, PREGU #### [address] [address] UA Urobilinogen 0.2 E.U./dL Normal 0.2-1.0 [facility] Comment on above: Performed By: #### U AMIC, UA, PREGU #### [place] [address] Urobilinogen (U) [Mass/Vol] Negative Normal Negative [facility] Comment on above: Performed By: #### U AMIC, UA, PREGU #### [place] [address] UA Specimen Type Clean Catch Normal [facility] Comment on above: Performed By: #### U AMIC, UA, PREGU #### [address] [address] UAMICon 04-22-2025 UA Bacteria 1+ /hpf Abnormal Negative [facility] Comment on above: Performed By: #### U AMIC, UA, PREGU #### [place] [address] UA Mucous 2+ /hpf Normal [facility] Comment on above: Performed By: #### U AMIC, UA, PREGU #### [address] [address] UA RBC Negative Normal 0-2 [facility] Comment on above: Performed By: #### U AMIC, UA, PREGU #### [place] [address] UA Squam Epithelial 3-5 Normal 0-20 [facility] Comment on above: Performed By: #### U AMIC, UA, PREGU #### [address], [place] [address] UA WBC 0-2 Normal 0-5 [facility] Comment on above: Performed By: #### U AMIC, UA, PREGU #### [place] [address] [place], [place] [address] Calprotectin, Stoolon [address] Normal [facility] Comment on above: Result Comment: TEST RESULTS LIMITS Calprotectin, Fecal 11 ug/g 0-120 Concentration Interpretation Follow-Up < 5 - 50 ug/g Normal None >50 -120 ug/g Borderline Re-evaluate in 4-6 weeks >120 ug/g Abnormal Repeat as clinically indicated TESTING PERFORMED AT [facility]. ORIGINAL REPORT ON FILE IN LAB CONTAINS ADDITIONAL TEST SITE INFORMATION. Performed By: #### L 7000.0750, L7000.0700 ####[facility] [address] [place], [address] L7000.0750on 03-30-2025 P ELASTASE,FECA > 800 Normal [facility] Comment on above: Result Comment: PEMA RE PANCREATIC INSUFFICIENCY <100 MODERATE PANCREATIC INSUFFICIENCY 100-200 NORMAL >200 Performed By: #### L 7000.0750, L7000.0700 ####[facility] [address] [place], [address] IVN Comprehensive Panelon ANTI-DNA (DS)AB <1 Normal 0-9 [facility] Comment on above: Result Comment: Nega tive <5 Equivocal 5 - 9 Positive >9 Performed By: #### L 3410.2400, L2100.0000, L3200.1100, L5500.0550, L501.6710, L3100.5440 #### [facility] [address] [place], [place], [id number] ANTI-SS-A < 0.2 Normal 0.0-0.9 [facility] Comment on above: Performed By: #### L 3410.2400, L2100.0000, L3200.1100, L5500.0550, L501.6710, L3100.5440 #### [facility] [address] [place], [address] ANTI-SS-B < 0.2 Normal 0.0-0.9 [facility] Comment on above: Performed By: #### L 3410.2400, L2100.0000, L3200.1100, L5500.0550, L501.6710, L3100.5440 #### [facility] [address] [place], [place], [id number] Celiac Disease Profileon ENDOMYSIAL IGA Negative Normal Negative [facility] Comment on above: Performed By: #### L 3410.2400, L2100.0000, L3200.1100, L5500.0550, L501.6710, L3100.5440 ####[facility] [address] [place], [place], [id number] tTG IGA <2 Normal 0-3 [facility] Comment on above: Result Comment: Nega tive 0 - 3 Weak Positive 4 - 10 Positive >10 Tissue Transglutaminase (tTG) has been identified as the endomysial antigen. Studies have demonstr- ated that endomysial IgA antibodies have over 99% specificity for gluten sensitive enteropathy. Performed By: #### L 3410.2400, L2100.0000, L3200.1100, L5500.0550, L501.6710, L3100.5440 ####[facility] [address] [place], [address] ED MED ADMINISTRATION DETAIL on 03-27-2025 ED MED ADMINISTRATION DETAIL Normal [facility] ED NURSES CLINICAL NOTEon ED NURSES CLINICAL NOTE Normal [facility] ED ORDER SHEET (CPOE ONLY)on 03-27-2025 ED ORDER SHEET (CPOE ONLY) Normal [facility] ED PHYSICIAN CLINICAL REPORT on 03-27-2025 ED PHYSICIAN CLINICAL REPORT Normal [facility] ED SUPER BILLon 03-27-2025 ED SUPER BILL Normal [facility] ED VISIT SUMMARYon ED VISIT SUMMARY Normal [facility] ED VITALS FLOW SHEETon 03-27 ED VITALS FLOW SHEET Normal [facility] Immunoglobulins G/A/M/Floyd IMMUNOGLOB A QN 107 mg/dL Normal 87-352 [facility] Comment on above: Order Comment: N Performed By: #### L 3410.2400, L2100.0000, L3200.1100, L5500.0550, L501.6710, L3100.5440 ####[facility] [address] [place], [place], [id number] IMMUNOGLOB E QN 40 IU/mL Normal 6-495 [facility] Comment on above: Order Comment: N Result Comment: Perf ormed at: [facility] [address] [id number] Director Of Content Marketing: Fritz Sol PhD, Phone: [phone] Performed at: [facility] [id number] Director Of Content Marketing: Meng Lu MD, Phone: [phone] Performed By: #### L 3410.2400, L2100.0000, L3200.1100, L5500.0550, L501.6710, L3100.5440 ####[facility] [address] [place], [place], [id number] IMMUNOGLOB G QN 958 mg/dL Normal 586-1602 [facility] Comment on above: Order Comment: N Performed By: #### L 3410.2400, L2100.0000, L3200.1100, L5500.0550, L501.6710, L3100.5440 ####[facility] [address] [place], [address] IMMUNOGLOB M QN 153 mg/dL Normal 26-217 [facility] Comment on above: Order Comment: N Performed By: #### L 3410.2400, L2100.0000, L3200.1100, L5500.0550, L501.6710, L3100.5440 ####[facility] [address] [place], [address] L2100.0000on 03-27-2025 ACCA 4 units Normal 0-90 [facility] Comment on above: Result Comment: Nega tive: <80 Equivocal: 80-90 Positive: >90 Performed By: #### L 3410.2400, L2100.0000, L3200.1100, L5500.0550, L501.6710, L3100.5440 #### [facility] [address] [place], [address] ALCA 15 units Normal 0-60 [facility] Comment on above: Result Comment: Nega tive:<55 Equivocal: 55-60 Positive: >60 Performed By: #### L 3410.2400, L2100.0000, L3200.1100, L5500.0550, L501.6710, L3100.5440 #### [facility] [address] [place], [address] AMCA 8 units Normal 0-100 [facility] Comment on above: Result Comment: Nega tive: <90 Equivocal: 90-100 Positive: >100 This test was developed and its performance characteristics determined by [employer]. It has not been cleared or approved by the Food and Drug Administration. The FDA has determined that such clearance or approval is not necessary. Performed By: #### L 3410.2400, L2100.0000, L3200.1100, L5500.0550, L501.6710, L3100.5440 #### [facility] [address] [place], [address] Atypical pANCA Negative Normal Negative [facility] Comment on above: Performed By: #### L 3410.2400, L2100.0000, L3200.1100, L5500.0550, L501.6710, L3100.5440 #### [facility] [address] [place], [address] COMMENT Comment Normal . [facility] Comment on above: Result Comment: Ilsa carlos a is not suggestive of Inflammatory Bowel Disease Performed By: #### L 3410.2400, L2100.0000, L3200.1100, L5500.0550, L501.6710, L3100.5440 #### [facility] [address] [place], [address] Penny 23 units Normal 0-50 [facility] Comment on above: Result Comment: Nega tive: <45 Equivocal: 45-50 Positive: >50 Performed By: #### L 3410.2400, L2100.0000, L3200.1100, L5500.0550, L501.6710, L3100.5440 #### [facility] [address] [place], [address] L5500.0550on 03-27-2025 BEEF <0.10 Normal Class 0 [facility] Comment on above: Performed By: #### L 3410.2400, L2100.0000, L3200.1100, L5500.0550, L501.6710, L3100.5440 #### [facility] [address] [place], [address] CHOCOLATE <0.10 Normal Class 0 [facility] Comment on above: Performed By: #### L 3410.2400, L2100.0000, L3200.1100, L5500.0550, L501.6710, L3100.5440 #### [facility] [address] [place], [address] CODFISH <0.10 Normal Class 0 [facility] Comment on above: Performed By: #### L 3410.2400, L2100.0000, L3200.1100, L5500.0550, L501.6710, L3100.5440 #### [facility] [address] [place], [place], [id number] COMMENT Comment Normal . [facility] Comment on above: Result Comment: Jono gonzalez of Specific IgE Class Description of Class ----- < 0.10 0 Negative 0.10 - 0.31 0/I Equivocal/Low 0.32 - 0.55 I Low 0.56 - 1.40 II Moderate 1.41 - 3.90 III High 3.91 - 19.00 IV Very High 19.01 - 100.00 V Very High >100.00 Very High Performed By: #### L 3410.2400, L2100.0000, L3200.1100, L5500.0550, L501.6710, L3100.5440 #### [facility] [address] [place], [place], [id number] CORN <0.10 Normal Class 0 [facility] Comment on above: Performed By: #### L 3410.2400, L2100.0000, L3200.1100, L5500.0550, L501.6710, L3100.5440 #### [facility] [address] [place], [place], [id number] EGG, WHOLE 0.11 kU/L Abnormal Class 0/I [facility] Comment on above: Result Comment: Perf ormed at: [facility] [address] [id number] Director Of Content Marketing: Fritz Sol PhD, Phone: [phone] Performed at: [facility] [address] [id number] Director Of Content Marketing: Meng Lu MD, Phone: [phone] Performed By: #### L 3410.2400, L2100.0000, L3200.1100, L5500.0550, L501.6710, L3100.5440 #### [facility] [address] [place], [address] MILK (COW) 0.18 kU/L Abnormal Class 0/I [facility] Comment on above: Performed By: #### L 3410.2400, L2100.0000, L3200.1100, L5500.0550, L501.6710, L3100.5440 #### [facility] [address] [place], [address] MUSSELS <0.10 Normal Class 0 [facility] Comment on above: Performed By: #### L 3410.2400, L2100.0000, L3200.1100, L5500.0550, L501.6710, L3100.5440 #### [facility] [address] [place], [address] PEANUT <0.10 Normal Class 0 [facility] Comment on above: Performed By: #### L 3410.2400, L2100.0000, L3200.1100, L5500.0550, L501.6710, L3100.5440 #### [facility] [address] [place], [address] PORK <0.10 Normal Class 0 [facility] Comment on above: Performed By: #### L 3410.2400, L2100.0000, L3200.1100, L5500.0550, L501.6710, L3100.5440 #### [facility] [address] [place], [address] SALMON <0.10 Normal Class 0 [facility] Comment on above: Performed By: #### L 3410.2400, L2100.0000, L3200.1100, L5500.0550, L501.6710, L3100.5440 #### [facility] [address] [place], [address] SHRIMP <0.10 Normal Class 0 [facility] Comment on above: Performed By: #### L 3410.2400, L2100.0000, L3200.1100, L5500.0550, L501.6710, L3100.5440 #### [facility] [address] [place], [address] SOYBEAN <0.10 Normal Class 0 [facility] Comment on above: Performed By: #### L 3410.2400, L2100.0000, L3200.1100, L5500.0550, L501.6710, L3100.5440 #### [facility] [address] [place], [address] TUNA <0.10 Normal Class 0 [facility] Comment on above: Performed By: #### L 3410.2400, L2100.0000, L3200.1100, L5500.0550, L501.6710, L3100.5440 #### [facility] [address] [place], [address] WHEAT <0.10 Normal Class 0 [facility] Comment on above: Performed By: #### L 3410.2400, L2100.0000, L3200.1100, L5500.0550, L501.6710, L3100.5440 #### [facility] [address] [place], [address] Abdomen Completeon 5 Abdomen Complete [facility] Services [address] [place] [address] Abdomen Complete MR#: [id number] Acct: [id number] Name: JESSICA ACUNA Rep #: [id number] : 1995 F 30 From: Lior Morgan DO PCP: JUDD Bernard Status: REG CLI Study: Abdomen Complete Date of Exam: 03/23/25 Exam# [id number] Ordering Dr: Tia Núñez PROCEDURE: ABDOMEN COMPLETE 03/23/2025 REASON FOR EXAM: RIGHT FLANK PAIN TECHNIQUE: ABDOMEN COMPLETE FINDINGS: Liver: Liver echogenicity is within normal limits. No intrahepatic biliary ductal dilatation. Normal hepatopetal flow in the portal vein. Gallbladder: Status post cholecystectomy Common bile duct: 6 mm. Pancreas: Normal as seen. Tail is not seen well Kidneys: The right kidney measures 13.3 cm L left 5.2 cm AP x 4.4 cm T. normal size, cortical thickness.. No calculi. The left kidney measures 12.2 cm 6.1 cm AP x 5.8 cm normal cortical thickness calculi. Spleen: Normal limits. Spleen length 10.9 cm.. Aorta: Normal caliber IVC: Remarkable. Peritoneal Findings: No peritoneal free fluid other perineal abnormality identified. US/Abdomen Complete IMPRESSION: Unremarkable ultrasound abdomen. Status post cholecystectomy. Reading [facility] CC: JUDD Núñez Resident Engineer: Signed Normal [facility] Stool pancreatic elastase me asurement (mass/mass)Ordered By: Jocelyn Gunn on 03-23-2025 Elastase.pancreatic (Stl) [Mass/Mass] > 800 [facility] Comment on above: SEVERE PANCREATIC IN SUFFICIENCY <100MODERATE PANCREATIC INSUFFICIENCY 100-200NORMAL >200 Atypical P-ANCA titerOrdered By: Jocelyn Gunn on 03-22-2025 Neutrophil cytoplasmic Ab.perinuclear.atypical IF (S) [Titer] Negative Negative [facility] CRPon 03-22-2025 C-REACTIVE PROT 9.05 mg/L High 0.0-3.0 [facility] Comment on above: Performed By: #### L 3410.2400, L2100.0000, L3200.1100, L5500.0550, L501.6710, L3100.5440 #### [facility] [address] [place], [address] Chitobioside IgA antibody as sayOrdered By: Jocelyn Gunn on 03-22-2025 Chitobioside IgA IA Qn 4 units 0-90 [facility] Comment on above: Negative: <80 Equivo margot: 80-90 Positive: >90 Gastroenterology Visit Repor ton 03-22-2025 Gastroenterology Visit Report [facility] Gastroenterology [address] [place] [address] OFFICE VISIT Date of Service: 03/22/25 MR#: [id number] Acct: [id number] Name: JESSICA ACUNA Rep #: [id number] : 1995 Provider: JUDD styles Age/Sex: 30/F Location: [facility] Status: Signed Intake Vital Signs 03/15/25 13:49 Height 5 ft 6 in BP 138/82 H Blood Pressure Location Lt brachial Position Sitting Respiration 18 Pulse 88 Pulse Source Monitor Temp 98.2 F Temp Source Temporal Pulse Oximetry (%) 96 Oxygen Delivery Method room air Intake Visit Reasons: COLITIS DIARRHEA BLOOD IN STOOL Allergies Penicillins Allergy (Verified 03/22/25 14:38) rash Medications ???Medication ???Instructions ???Recorded ???Confirmed ???Type levonorgestrel (Mirena) 1 insert intrauterine ONCE 2 03/22/25 History Nebulizer machine #1 ea 06/18/24 03/22/25 Rx fluticasone furoate 200 1 inh inhalation DAILY #60 ea 11/0403/22/25 Rx mcg-vilanterol 25 mcg/dose inhalation powder (Breo Ellipta) ondansetron 4 mg disintegrating 4 mg PO Q6H PRN nausea and 5 03/22/25 Rx tablet vomiting #20 tabs dicyclomine 20 mg tablet 20 mg PO TID PRN abdominal 5 03/22/25 Rx cramping #30 tabs duloxetine 60 mg capsule,delayed 60 mg PO DAILY #90 caps 03/08/25 0 03/22/25 Rx release losartan 50 mg-hydrochlorothiazide 1 tab PO DAILY #90 tabs 03/08/25 03/22/25 Rx 12.5 mg tablet trazodone 50 mg tablet 50 mg PO QHS #60 tabs 03/08/25 Rx naproxen 500 mg tablet 500 mg PO BID PRN pain #30 tabs 03/22/25 Rx albuterol sulfate 2.5 mg/3 mL 2.5 mg (3 mL) inhalation Q4H PRN 0 03/15/25 03/22/25 Rx (0.083 %) solution for nebulization shortness of breath or wheezing #180 mL albuterol sulfate 90 mcg/actuation 2 puff inhalation Q4H PRN 03/22/25 Rx aerosol inhaler (Ventolin HFA) shortness of breath or wheezing #8.5 grams dextromethorphan polistirex 30 10 ml PO Q12H PRN cough #89 mL 03/22/25 Rx mg/5 mL oral susp ext.release 12hr (Delsym 12 hour) prochlorperazine maleate 5 mg 5 mg PO TID PRN nausea and 5 03/22/25 Rx tablet (Compazine) vomiting #14 tabs colesevelam 625 mg tablet (WelChol) 1,875 mg (3 x 625 mg) PO BID 1 03/22/25 03/22/25 Rx month #180 tabs famotidine 40 mg tablet 40 mg PO QHS #30 tabs 03/22/25 Rx pantoprazole 40 mg tablet,delayed 40 mg PO BID #60 tabs 03/22/25 Rx release PFSH Medical History Depression PCOS (polycystic ovarian [...] feel safe at home: Yes HPI HPI Details: JESSICA ACUNA, is a 30 F who presents to the office today for establishment with [facility] regarding frequent loose stools with urgency, heartburn, and abdominal pain. She reports daily heartburn that can get so severe it causes her to become nauseous. She states that eating may help the heartburn briefly, but then it returns. She has urgent diarrhea within 15minutes of eating. She has had her gallbladder removed due to poor ejection fraction about 5 years ago. She had been on an orange powder, that was horrible and a pill that was to help with the diarrhea but she stopped due to job and insurance changes. She had been scheduled for bidirectional endoscopies as well until she changed jobs. She denies recent stool testing. She is taking pantoprazole 40mg daily and PRN ondansetron. She reports seeing blood while wiping after BM but not in toilet water, and has excess belching. She states that her stools can be mucus-looking to watery. She states that her dad and a first cousin are dealing with colon cancer right now. She denies difficulty chewing and swallowing, constipation, and melena. 5.18.25 CT abd/pelvis w/IV con Pomerene: gallbladder absent, mucosal thickening vs under filling of the colon, nonspecific colitis cannot be excluded, 3.7 right adnexal cyst, trace free f (more content not included)... Normal [facility] IgEOrdered By: Jocelyn Gunn on 03-22-2025 IgE 40 IU/mL 6-495 [facility] Comment on above: Performed at: - [address] [id number] Director: Fritz Sol PhD, Phone: [phone] at: - [facility] [address] [id number] Director: Meng Lu MD, Phone: [phone] Kidney and Bladderon 025 Kidney and Bladder [facility] Imaging Services [address] [place] [address] Kidney and Bladder MR#: [id number] Acct: [id number] Name: JESSICA ACUNA ENRIQUE MOISE Rep #: [id number] : 1995 F 30 From: Jonathon Martínez MD PCP: JUDD Bernard Status: REG CLI Study: Kidney and Bladder Date of Exam: 03/22/25 Exam# [id number] Ordering Dr: Tia Núñez EXAM: US Retroperitoneal Limited, Renal CLINICAL INDICATION: RIGHT FLANK PAIN TECHNIQUE: Real-time limited ultrasound of the retroperitoneum with image documentation. COMPARISON: No relevant prior studies available. FINDINGS: RIGHT KIDNEY: Unremarkable. No stones. No hydronephrosis. The right kidney measures 13.0 x 5.5 x 4.9 cm. LEFT KIDNEY: Unremarkable. No stones. No hydronephrosis. The left kidney measures 12.1 x 5.7 x 5.9 cm. BLADDER: Normal-appearing urinary bladder. Prevoid volume 142 cc. Postvoid volume 8 cc. US/Kidney and Bladder IMPRESSION: No acute findings in the retroperitoneum. Reading Location: [facility] CC: LEARNING SUPPORT TEACHER-Kaley Núñez Resident Engineer: Signed Normal [facility] - Miscellaneous t estsOrdered By: Jocelyn Gunn on 03-22-2025 Laboratory comment Kamlesh (Report) Comment . [facility] Comment on above: Pattern is not sugge stive of Inflammatory Bowel Disease Service comment (Unsp spec) [Interp] Comment . [facility] Comment on above: Levels of Specific I gE Class Description of Class ----- < 0.10 0 Negative 0.10 - 0.31 0/I Equivocal/Low 0.32 - 0.55 I Low 0.56 - 1.40 II Moderate 1.41 - 3.90 III High 3.91 - 19.00 IV Very High 19.01 - 100.00 V Very High >100.00 Very High Laminaribioside carbohydrate IgG antibody assayOrdered By: Jocelyn Gunn on 03-22-2025 Laminaribioside IgG IA Qn 15 units 0-60 [facility] Comment on above: Negative:<55 Equivoc al: 55-60 Positive: >60 Serum DNA double strand anti body assay (units/volume)Ordered By: Jocelyn Gunn on 03-22-2025 DNA double strand Ab Qn (S) [IU]/mL 0-9 [facility] Comment on above: Negative <5 Equivoca l 5 - 9 Positive >9 Serum Scl-70 antibody assay (units/volume)Ordered By: Jocelyn Gunn on 03-22-2025 SCL-70 extractable nuclear Ab Qn (S) <0.2 AI 0.0-0.9 [facility] Comment on above: Previous reported re sult: TNP AIEdited by: BREANNA on 03/27/25:0909 AMENDED REPORT 03/27/25 09 ANTISCLER previously reported as: Test not performed Serum beef IgE antibody assa y (units/volume)Ordered By: Jocelyn Gunn on 03-22-2025 Beef IgE Qn (S) <0.10 kU/L Class 0 [facility] Serum codfish IgE antibody a ssay (units/volume)Ordered By: Jocelyn Gunn on 03-22-2025 Codfish IgE Qn (S) <0.10 kU/L Class [address] [facility] Serum corn IgE antibody assa y (units/volume)Ordered By: Jocelyn Gunn on 03-22-2025 [place] IgE Qn (S) <0.10 kU/L Class 0 [facility] Serum cow milk IgE antibody assay (units/volume)Ordered By: Jocelyn Gunn on 03-22-2025 Cow milk IgE Qn (S) 0.18 kU/L High Class 0/I [facility] Serum or plasma C reactive p rotein measurement (mass/volume)Ordered By: Jocelyn Gunn on 03-22-2025 CRP [Mass/Vol] 9.05 mg/L High 0.0-3.0 [facility] Serum or plasma IgA measurem ent (mass/volume)Ordered By: Jocelyn Gunn on 03-22-2025 IgA [Mass/Vol] 107 mg/dL 87-352 [facility] Serum or plasma IgG measurem ent (mass/volume)Ordered By: Jocelyn Gunn on 03-22-2025 IgG [Mass/Vol] 958 mg/dL [phone] [facility] Serum or plasma mannobioside IgG antibody assay by immunoassay (units/volume)Ordered By: Jocelyn Gunn on 03-22-2025 Mannobioside IgG IA Qn 8 units 0-100 [facility] Comment on above: Negative: <90 Equivo margot: 90-100 Positive: >100 This test was developed and its performance characteristics determined by [employer]. It has not been cleared or approved by the Food and Drug Administration. The FDA has determined that such clearance or approval is not necessary. Serum peanut IgE antibody as say (units/volume)Ordered By: Jocelyn Gunn on 03-22-2025 Peanut IgE Qn (S) <0.10 kU/L Class 0 [facility] Serum pork IgE antibody assa y (units/volume)Ordered By: Jocelyn Gunn on 03-22-2025 Pork IgE Qn (S) <0.10 kU/L Class 0 [facility] Serum salmon IgE antibody as say (units/volume)Ordered By: Jocelyn Gunn on 03-22-2025 [place] IgE Qn (S) <0.10 kU/L Class 0 [facility] Serum soybean IgE antibody a ssay (units/volume)Ordered By: Jocelyn Gunn on 03-22-2025 Soybean IgE Qn (S) <0.10 kU/L Class [address] [facility] Serum tissue transglutaminas e (tTG) IgA antibody assay (units/volume)Ordered By: Jocelyn Gunn on 03-22-2025 tTG IgA Qn (S) <2 U/mL 0-3 [facility] Comment on above: Negative 0 - 3 Weak Positive 4 - 10 Positive >10 Tissue Transglutaminase (tTG) has been identified as the endomysial antigen. Studies have demonstr- ated that endomysial IgA antibodies have over 99% specificity for gluten sensitive enteropathy. Serum tuna IgE antibody assa y (units/volume)Ordered By: Jocelyn Gunn on 03-22-2025 Tuna IgE Qn (S) <0.10 kU/L Class 0 [facility] Serum wheat IgE antibody ass ay (units/volume)Ordered By: Jocelyn Gunn on 03-22-2025 Wheat IgE Qn (S) <0.10 kU/L Class 0 [facility] Serum whole egg IgE antibody assay (units/volume)Ordered By: Jocelyn Gunn on 03-22-2025 Whole Egg IgE Qn (S) 0.11 kU/L High Class 0/I [facility] Comment on above: Performed at: - [facility] [id number] [place], [place] [id number] Director: Fritz Sol PhD, Phone: [phone] at: [facility] Lab[address] [id number] Director: Meng Lu MD, Phone: [phone] Internal Medicine Office Vis ito 03-15-2025 Internal Medicine Office Visit [place] [facility] [place] [address] [place] [address] OFFICE VISIT Date of Service: 03/15/25 MR#: [id number] Acct: [id number] Name: JESSICA ACUNA Rep #: [id number] : 1995 Provider: JUDD kemp Age/Sex: 30/F Location: [facility] Status: Signed Intake Vital Signs 03/08/25 15:00 [...] room air room air Intake Visit Reasons: [facility] FU Chief Complaint: [place] FU Is patient [...] has c/o pain in back with urination. [facility] Medical History Depression PCOS (polycystic ovarian syndrome) [...] Patient was hospitalized for asthma exacerbation at [facility]. Patient states breathing is better today but [...] and wheezing; (more content not included)... Normal [facility] - Chemistry and C hemistry - challengeOrdered By: Tia Núñez on 03-15-2025 Bilirubin Ql (U) Negative [facility] Glucose Ql (U) Negative [facility] pH (U) 5.0 [pH] [facility] Specific gravity (U) [Rel density] 1.025 [facility] Urobilinogen (U) [Mass/Vol] Negative [facility] - Hematology and Cell countsOrdered By: Tia Núñez on 03-15-2025 Hemoglobin Ql (U) Trace [facility] - Specimen inform ationOrdered By: Tia Núñez on 03-15-2025 Clarity (U) Clear [facility] Color (U) Yellow [facility] - UrinalysisOrder ed By: Tia Núñez on 03-15-2025 Nitrite Ql (U) Negative [facility] BMP with eGFR DAILYon 2024 AGE 30 years Normal [facility] Comment on above: Performed By: #### 2 12656 ####[facility],[address] [place] [address] Anion gap [Moles/Vol] 10 mmol/L Normal 10 - 20 [facility] Comment on above: Performed By: #### 2 55926 ####[facility],[address] [place] [address] BMP with eGFR DAILY Normal [facility] Comment on above: Result Comment: BASI C METABOLIC PANEL Performed By: #### 2 82383 ####[facility],[address] [place] [address] Calcium [Mass/Vol] 8.9 mg/dL Normal 8.5 - 10.1 [facility] Comment on above: Performed By: #### 2 71813 ####[facility],[address] [place] [address]22 Chloride [Moles/Vol] 105 mmol/L Normal 98 - 107 [facility] Comment on above: Performed By: #### 2 34380 ####[facility],[address] [place] [address] 94188 CO2 [Moles/Vol] 25.1 mmol/L Normal 21.0 - 32.0 [facility] Comment on above: Performed By: #### 2 69939 ####[facility],[address] [place] [address]262 Creatinine [Mass/Vol] 0.78 mg/dL Normal 0.55 - 1.02 [facility] Comment on above: Performed By: #### 2 92798 ####[facility],[address] [place] [address]4424 GFR/1.73 sq M.predicted among non-blacks MDRD (S/P/Bld) [Vol rate/Area] mL/min/{1.73_m2} Normal 60 - 999 [facility] Comment on above: Performed By: #### 2 04081 ####[facility],[address] [place] [address]678 Result Comment: ACCO RDING TO THE NATIONAL KIDNEY DISEASE EDUCATION PROGRAM(NKDE), A NORMAL eGFRIS A VALUE GREATER THAN OR EQUAL TO 60 ML/MIN/1.73 SQ METERS.CHRONIC KIDNEY DISEASE: <60mL/MIN/1.73 SQ METERSKIDNEY FAILURE: <15mL/MIN/1.73 SQ METERSTHIS TEST SHOULD ONLY BE USED FOR PATIENTS 18 YEARS OF AGE AND OLDER. Glucose [Mass/Vol] 138 mg/dL High 74 - 106 [facility] Comment on above: Performed By: #### 2 59922 ####[facility],[address] [place] [address]773 Potassium [Moles/Vol] 4.5 mmol/L Normal 3.5 - 5.1 [facility] Comment on above: Performed By: #### 2 97871 ####[facility],[address] [place] [address] 13951 Sodium [Moles/Vol] 136 mmol/L Normal 136 - 145 [facility] Comment on above: Performed By: #### 2 46823 ####[facility],[address] [place] [address]9766 Urea nitrogen [Mass/Vol] 17 mg/dL Normal 7 - 18 [facility] Comment on above: Performed By: #### 2 51896 ####[facility],[address] [place] [address] 55543 CBC + DIFFon 03-13-2025 Baso # 0.00 x10EE3/UL Normal 0.00 - 0.10 [facility] Comment on above: Performed By: #### 2 13156 ####[facility],[address] [place] [address] 57147 Basophils/100 WBC (Bld) 0.0 % Normal 0.0 - 2.0 [facility] Comment on above: Performed By: #### 2 99671 ####[facility],[address] [place] [address] CBC + DIFF Normal [facility] Comment on above: Result Comment: CBC- COMPLETE BLOOD COUNT Performed By: #### 2 49274 ####[facility],[address] [place] [address] EO # 0.11 x10EE3/UL Normal 0.00 - 0.50 [facility] Comment on above: Performed By: #### 2 50619 ####[place] [address] Eosinophils/100 WBC (Bld) 0.8 % Normal 0.0 - 7.0 [facility] Comment on above: Performed By: #### 2 49535 ####[facility],[address] [place] [address] Erythrocyte distribution width (RBC) [Ratio] 13.5 % Normal 12.0 - 15.6 [facility] Comment on above: Performed By: #### 2 32576 ####[facility],[address] [place] [address] Hematocrit (Bld) [Volume fraction] 42.8 % Normal 34.0 - 46.0 [facility] Comment on above: Performed By: #### 2 57097 ####[facility],[address] [place] [address] Hemoglobin (Bld) [Mass/Vol] 14.7 g/dL Normal 12.0 - 16.0 [facility] Comment on above: Performed By: #### 2 23952 ####[facility],[address] [place] [address] Lymph # 0.75 x10EE3/UL Low 0.80 - 2.80 [facility] Comment on above: Performed By: #### 2 68465 ####[facility],[address] [place], [place] [address] Lymphocytes/100 WBC (Bld) 5.1 % Low 20.0 - 45.0 [facility] Comment on above: Performed By: #### 2 97191 ####[facility],[address] [place], [place] [address] MANUAL DIFF N/A Normal [facility] Comment on above: Performed By: #### 2 55963 ####[facility],[address] [place] [address] MCH (RBC) [Entitic mass] 30 pg Normal 27 - 33 [facility] Comment on above: Performed By: #### 2 64771 ####[place] [address] MCHC 34 X10 3 Normal 32 - 36 [facility] Comment on above: Performed By: #### 2 09299 ####[facility],[address] [place], [place] [address] MCV (RBC) [Entitic vol] 87 fL Normal 80 - 99 [facility] Comment on above: Performed By: #### 2 65447 ####[facility],[address] [place] [address] Simpson # 0.26 x10EE3/UL Normal 0.20 - 1.00 [facility] Comment on above: Performed By: #### 2 57249 ####[place] [id number] MONOS % 1.8 % Normal 0.0 - 10.0 [facility] Comment on above: Performed By: #### 2 51778 ####[facility],[address] [place] [address] 39812 Morphology Kamlesh (Bld) [Interp] N/A Normal [facility] Comment on above: Performed By: #### 2 09964 ####[facility],[address] [place] [address] 40045 Neut # 13.65 x10EE3/UL High 1.50 - 7.10 [facility] Comment on above: Performed By: #### 2 17156 ####[address] [address] Neutrophils/100 WBC (Bld) 92.4 % High 46.0 - 76.0 [facility] Comment on above: Performed By: #### 2 56751 ####[address] [address] PLATELET 215 x10EE3/UL Normal 150 - 450 [facility] Comment on above: Performed By: #### 2 13300 ####[address] [address] Platelet mean volume (Bld) [Entitic vol] 9.1 fL Normal 6.6 - 10.5 [facility] Comment on above: Result Comment: AUTO MATED DIFFERENTIAL Performed By: #### 2 87842 ####[address] [address] RBC 4.92 x 10EE6/UL Normal 4.10 - 5.30 [facility] Comment on above: Performed By: #### 2 78377 ####[address] [address] WBC 14.8 x 10EE3/UL High 4.5 - 10.8 [facility] Comment on above: Performed By: #### 2 87094 ####[address] [address] MAGNESIUM DAILYon 03-13-2025 Magnesium [Mass/Vol] 2.5 mg/dL High 1.8 - 2.4 [facility] Comment on above: Performed By: #### 2 33953 ####[facility],[address] [place] [address]3434 BMP with eGFRon 03-12-2025 AGE 30 years Normal [facility] Comment on above: Performed By: #### 2 14879 ####[facility],[address] [place] [address] 31014 Anion gap [Moles/Vol] 11 mmol/L Normal 10 - 20 [facility] Comment on above: Performed By: #### 2 83879 ####[facility],[address] [place] [address] 91440 BMP with eGFR Normal [facility] Comment on above: Result Comment: BASI C METABOLIC PANEL Performed By: #### 2 78161 ####[facility],[address] [place] [address] 41012 Calcium [Mass/Vol] 8.8 mg/dL Normal 8.5 - 10.1 [facility] Comment on above: Performed By: #### 2 84653 ####[facility],[address] [place] [address] 26466 Chloride [Moles/Vol] 104 mmol/L Normal 98 - 107 [facility] Comment on above: Performed By: #### 2 72278 ####[facility],[address] [place] [address] 41298 CO2 [Moles/Vol] 24.3 mmol/L Normal 21.0 - 32.0 [facility] Comment on above: Performed By: #### 2 40553 ####[facility],[address] [place] [address]6901 Creatinine [Mass/Vol] 0.74 mg/dL Normal 0.55 - 1.02 [facility] Comment on above: Performed By: #### 2 61273 ####[facility],[address] [place] [address] 76030 GFR/1.73 sq M.predicted among non-blacks MDRD (S/P/Bld) [Vol rate/Area] mL/min/{1.73_m2} Normal 60 - 999 [facility] Comment on above: Performed By: #### 2 54528 ####[facility],[address] [place] [address] 87122 Result Comment: ACCO RDING TO THE NATIONAL KIDNEY DISEASE EDUCATION PROGRAM(NKDE), A NORMAL eGFRIS A VALUE GREATER THAN OR EQUAL TO 60 ML/MIN/1.73 SQ METERS.CHRONIC KIDNEY DISEASE: <60mL/MIN/1.73 SQ METERSKIDNEY FAILURE: <15mL/MIN/1.73 SQ METERSTHIS TEST SHOULD ONLY BE USED FOR PATIENTS 18 YEARS OF AGE AND OLDER. Glucose [Mass/Vol] 132 mg/dL High 74 - 106 [facility] Comment on above: Performed By: #### 2 94619 ####[facility],[address] [place] [address] 05262 Potassium [Moles/Vol] 4.1 mmol/L Normal 3.5 - 5.1 [facility] Comment on above: Performed By: #### 2 36519 ####[facility],[address] [place] [address] 72097 Sodium [Moles/Vol] 135 mmol/L Low 136 - 145 [facility] Comment on above: Performed By: #### 2 99116 ####[facility],[address] [place] [address] 70724 Urea nitrogen [Mass/Vol] 14 mg/dL Normal 7 - 18 [facility] Comment on above: Performed By: #### 2 93102 ####[facility],[address] [place] [address] 72701 CBC + DIFFon 03-12-2025 Baso # 0.02 x10EE3/UL Normal 0.00 - 0.10 [facility] Comment on above: Performed By: #### 2 87619 ####[facility],[address] [place] [address] 05635 Basophils/100 WBC (Bld) 0.1 % Normal 0.0 - 2.0 [facility] Comment on above: Performed By: #### 2 44375 ####[facility],[address] [place] [address]994 CBC + DIFF Normal [facility] Comment on above: Result Comment: CBC- COMPLETE BLOOD COUNT Performed By: #### 2 89318 ####[facility],[address] [place] [address] 39574 EO # 0.07 x10EE3/UL Normal 0.00 - 0.50 [facility] Comment on above: Performed By: #### 2 97792 ####[facility],[address] [place] [address] 77434 Eosinophils/100 WBC (Bld) 0.4 % Normal 0.0 - 7.0 [facility] Comment on above: Performed By: #### 2 31190 ####[facility],[address] [place] [address] Erythrocyte distribution width (RBC) [Ratio] 13.2 % Normal 12.0 - 15.6 [facility] Comment on above: Performed By: #### 2 69422 ####[facility],[address] [place] [address] 81523 Hematocrit (Bld) [Volume fraction] 43.2 % Normal 34.0 - 46.0 [facility] Comment on above: Performed By: #### 2 73956 ####[facility],[address] [place] [address] 15852 Hemoglobin (Bld) [Mass/Vol] 15.2 g/dL Normal 12.0 - 16.0 [facility] Comment on above: Performed By: #### 2 97934 ####[facility],[address] [place] [address] 04806 Lymph # 0.64 x10EE3/UL Low 0.80 - 2.80 [facility] Comment on above: Performed By: #### 2 55183 ####[facility],[address] [place] [address] 33058 Lymphocytes/100 WBC (Bld) 4.1 % Low 20.0 - 45.0 [facility] Comment on above: Performed By: #### 2 14729 ####[facility],[address] [place] [address] MANUAL DIFF N/A Normal [facility] Comment on above: Performed By: #### 2 61727 ####[facility],[address] [place] [address] MCH (RBC) [Entitic mass] 30 pg Normal 27 - 33 [facility] Comment on above: Performed By: #### 2 00853 ####[facility],[address] [place] [address] MCHC 35 X10 3 Normal 32 - 36 [facility] Comment on above: Performed By: #### 2 77456 ####[place] [address] MCV (RBC) [Entitic vol] 86 fL Normal 80 - 99 [facility] Comment on above: Performed By: #### 2 74250 ####[place] [address] Simpson # 0.51 x10EE3/UL Normal 0.20 - 1.00 [facility] Comment on above: Performed By: #### 2 56261 ####[facility],[address] [place] [address] MONOS % 3.3 % Normal 0.0 - 10.0 [facility] Comment on above: Performed By: #### 2 94636 ####[place] [id number] Morphology Kamlesh (Bld) [Interp] N/A Normal [facility] Comment on above: Performed By: #### 2 56436 ####[facility],[address] [place] [address] Neut # 14.38 x10EE3/UL High 1.50 - 7.10 [facility] Comment on above: Performed By: #### 2 95146 ####[facility],[address] [place] [address] 86796 Neutrophils/100 WBC (Bld) 92.1 % High 46.0 - 76.0 [facility] Comment on above: Performed By: #### 2 32947 ####[facility],[address] [place] [address] 46692 PLATELET 265 x10EE3/UL Normal 150 - 450 [facility] Comment on above: Performed By: #### 2 90470 ####[facility],[address] [place] [address] 86028 Platelet mean volume (Bld) [Entitic vol] 8.6 fL Normal 6.6 - 10.5 [facility] Comment on above: Result Comment: AUTO MATED DIFFERENTIAL Performed By: #### 2 34781 ####[address] [address] RBC 5.00 x 10EE6/UL Normal 4.10 - 5.30 [facility] Comment on above: Performed By: #### 2 33876 ####[address] [address] WBC 15.6 x 10EE3/UL High 4.5 - 10.8 [facility] Comment on above: Performed By: #### 2 45056 ####[facility],[address] [place] [address] 86226 MAGNESIUM DAILYon 03-12-2025 Magnesium [Mass/Vol] 2.4 mg/dL Normal 1.8 - 2.4 [facility] Comment on above: Performed By: #### 2 96227 ####[address] [address] CBC + DIFFon 03-11-2025 Baso # 0.02 x10EE3/UL Normal 0.00 - 0.10 [facility] Comment on above: Performed By: #### 2 58556 ####[place] [address],[place] [address] Basophils/100 WBC (Bld) 0.2 % Normal 0.0 - 2.0 [facility] Comment on above: Performed By: #### 2 80670 ####[facility],[address] [place] [address] CBC + DIFF Normal [facility] Comment on above: Result Comment: CBC- COMPLETE BLOOD COUNT Performed By: #### 2 97571 ####[facility],[address] [place] [address] EO # 0.35 x10EE3/UL Normal 0.00 - 0.50 [facility] Comment on above: Performed By: #### 2 35651 ####[facility],[address] [place], [place] [address] Eosinophils/100 WBC (Bld) 4.3 % Normal 0.0 - 7.0 [facility] Comment on above: Performed By: #### 2 53297 ####[facility],[address] [place] [address] Erythrocyte distribution width (RBC) [Ratio] 12.9 % Normal 12.0 - 15.6 [facility] Comment on above: Performed By: #### 2 34537 ####[facility],[address] [place] [address] Hematocrit (Bld) [Volume fraction] 42.0 % Normal 34.0 - 46.0 [facility] Comment on above: Performed By: #### 2 09136 ####[facility],[address] [place], [place] [address] Hemoglobin (Bld) [Mass/Vol] 15.0 g/dL Normal 12.0 - 16.0 [facility] Comment on above: Performed By: #### 2 24348 ####[facility],[address] [place] [address] 43901 Lymph # 1.20 x10EE3/UL Normal 0.80 - 2.80 [facility] Comment on above: Performed By: #### 2 48650 ####[facility],[address] [place] [address] 26491 Lymphocytes/100 WBC (Bld) 14.6 % Low 20.0 - 45.0 [facility] Comment on above: Performed By: #### 2 32760 ####[facility],[address] [place] [address] 37432 MANUAL DIFF N/A Normal [facility] Comment on above: Performed By: #### 2 87859 ####[facility],[address] [place] [address] MCH (RBC) [Entitic mass] 30 pg Normal 27 - 33 [facility] Comment on above: Performed By: #### 2 77353 ####[facility],[address] [place] [address] MCHC 36 X10 3 Normal 32 - 36 [facility] Comment on above: Performed By: #### 2 46312 ####[facility],[address] [place] [address] 50316 MCV (RBC) [Entitic vol] 85 fL Normal 80 - 99 [facility] Comment on above: Performed By: #### 2 98232 ####[facility],[address] [place] [address] 85935 Simpson # 0.42 x10EE3/UL Normal 0.20 - 1.00 [facility] Comment on above: Performed By: #### 2 90488 ####[facility],[address] [place] [address] 43201 MONOS % 5.2 % Normal 0.0 - 10.0 [facility] Comment on above: Performed By: #### 2 88574 ####[facility],[address] [place] [address] 27906 Morphology Kamlesh (Bld) [Interp] N/A Normal [facility] Comment on above: Performed By: #### 2 29573 ####[facility],[address] [place] [address] 26839 Neut # 6.24 x10EE3/UL Normal 1.50 - 7.10 [facility] Comment on above: Performed By: #### 2 28172 ####[facility],[address] [place] [address] 50513 Neutrophils/100 WBC (Bld) 75.8 % Normal 46.0 - 76.0 [facility] Comment on above: Performed By: #### 2 66734 ####[facility],[address] [place] [address] 99617 PLATELET 246 x10EE3/UL Normal 150 - 450 [facility] Comment on above: Performed By: #### 2 03260 ####[facility],[address] [place] [address] 14271 Platelet mean volume (Bld) [Entitic vol] 7.9 fL Normal 6.6 - 10.5 [facility] Comment on above: Result Comment: AUTO MATED DIFFERENTIAL Performed By: #### 2 53309 ####[facility],[address] [place] [address] 89925 RBC 4.93 x 10EE6/UL Normal 4.10 - 5.30 [facility] Comment on above: Performed By: #### 2 19706 ####[facility],[address] [place] [address] 33382 WBC 8.2 x 10EE3/UL Normal 4.5 - 10.8 [facility] Comment on above: Performed By: #### 2 80790 ####[facility],[address] [place] [address] 32527 CHEST 1 VIEWon 03-11-2025 CHEST 1 VIEW Normal [facility] CMP with eGFRon 03-11-2025 AGE 30 years Normal [facility] Comment on above: Performed By: #### 2 27181 ####[facility],[address] [place] [address] 77110 Albumin [Mass/Vol] 3.3 g/dL Low 3.4 - 5.0 [facility] Comment on above: Performed By: #### 2 56302 ####[facility],[address] [place] [address] 20732 Albumin/Globulin [Mass ratio] 0.9 {ratio} Normal 0.9 - 1.6 [facility] Comment on above: Performed By: #### 2 03787 ####[facility],[address] [place] [address] 15031 ALK PHOS 85 U/L Normal 46 - 116 [facility] Comment on above: Performed By: #### 2 89888 ####[facility],[address] [place] [address] 33361 ALT [Catalytic activity/Vol] 26 U/L Normal 16 - 63 [facility] Comment on above: Performed By: #### 2 50215 ####[facility],[address] [place] [address] 39096 Anion gap [Moles/Vol] 15 mmol/L Normal 10 - 20 [facility] Comment on above: Performed By: #### 2 01891 ####[facility],[address] [place] [address] 35029 AST [Catalytic activity/Vol] 13 U/L Normal 13 - 39 [facility] Comment on above: Performed By: #### 2 66098 ####[facility],[address] [place] [address] 19482 B/C RATIO 17 ratio Normal 0 - 30 [facility] Comment on above: Performed By: #### 2 63586 ####[facility],[address] [place] [address] 17471 Bilirubin [Mass/Vol] 0.3 mg/dL Normal 0.2 - 1.0 [facility] Comment on above: Performed By: #### 2 36280 ####[facility],[address] [place] [address] 03539 Calcium [Mass/Vol] 8.5 mg/dL Normal 8.5 - 10.1 [facility] Comment on above: Performed By: #### 2 25751 ####[facility],[address] [place], [place] [address] Chloride [Moles/Vol] 103 mmol/L Normal 98 - 107 [facility] Comment on above: Performed By: #### 2 25328 ####[facility],[address] [place], [place] [address] CMP with eGFR Normal [facility] Comment on above: Result Comment: COMP REHENSIVE METABOLIC PANEL Performed By: #### 2 33207 ####[facility],[address] [place] [address] CO2 [Moles/Vol] 23.2 mmol/L Normal 21.0 - 32.0 [facility] Comment on above: Performed By: #### 2 98088 ####[facility],[address] [place], [place] [address] Creatinine [Mass/Vol] 0.82 mg/dL Normal 0.55 - 1.02 [facility] Comment on above: Performed By: #### 2 67226 ####[facility],[address] [place] [address] 19298 GFR/1.73 sq M.predicted among non-blacks MDRD (S/P/Bld) [Vol rate/Area] mL/min/{1.73_m2} Normal 60 - 999 [facility] Comment on above: Performed By: #### 2 32416 ####[facility],[address] [place] [address] Result Comment: ACCO RDING TO THE NATIONAL KIDNEY DISEASE EDUCATION PROGRAM(NKDE), A NORMAL eGFRIS A VALUE GREATER THAN OR EQUAL TO 60 ML/MIN/1.73 SQ METERS.CHRONIC KIDNEY DISEASE: <60mL/MIN/1.73 SQ METERSKIDNEY FAILURE: <15mL/MIN/1.73 SQ METERSTHIS TEST SHOULD ONLY BE USED FOR PATIENTS 18 YEARS OF AGE AND OLDER. Globulin (S) [Mass/Vol] 3.6 g/dL Normal 1.5 - 3.8 [facility] Comment on above: Performed By: #### 2 37286 ####[facility],[address] [place] [address] 14463 Glucose [Mass/Vol] 123 mg/dL High 74 - 106 [facility] Comment on above: Performed By: #### 2 42984 ####[facility],[address] [place] [address] 77137 Potassium [Moles/Vol] 3.5 mmol/L Normal 3.5 - 5.1 [facility] Comment on above: Performed By: #### 2 37428 ####[facility],[address] [place] [address] 74057 Protein [Mass/Vol] 6.9 g/dL Normal 6.4 - 8.2 [facility] Comment on above: Performed By: #### 2 23176 ####[facility],[address] [place] [address] 67519 Sodium [Moles/Vol] 138 mmol/L Normal 136 - 145 [facility] Comment on above: Performed By: #### 2 26580 ####[facility],[address] [place] [address] 06547 Urea nitrogen [Mass/Vol] 14 mg/dL Normal 7 - 18 [facility] Comment on above: Performed By: #### 2 15105 ####[facility],[address] [place] [address] 45913 CORONAVIRUS (SARS) ANTIGEN T ESTon 03-11-2025 EXTERNAL QC DONE? YES Normal [facility] Comment on above: Performed By: #### 2 05130 ####[facility],[address] [place] [address] 69798 INTERNAL CONTROL PASS Normal [facility] Comment on above: Performed By: #### 2 88656 ####[facility],[address] [place] [address] 09715 SARS ANTIGEN Negative Normal NORMAL: NEGATIVE [facility] Comment on above: Performed By: #### 2 26641 ####[facility],[address] [place] [address] 45908 SEND TO ? NO Normal [facility] Comment on above: Result Comment: SARS -CoV-2THIS TEST IS BEING USED UNDER THE FDA EUA PROCEDURE. THIS ASSAY HAS BEENVALIDATED AT [facility] FOR USE WITH NASAL AND NASOPHARYNGEAL SWABSPECIMENS.INTERPRETIVE [...] BY HEALTHCARE PROVIDERS IN CONSULTATION WITH PUBLIC [facility]. Performed By: #### 2 46628 ####[facility],[address] [place] [address] 76173 ED MED ADMINISTRATION DETAIL on 03-11-2025 ED MED ADMINISTRATION DETAIL Normal [facility] ED NURSES CLINICAL NOTEon ED NURSES CLINICAL NOTE Normal [facility] ED ORDER SHEET (CPOE ONLY)on 03-11-2025 ED ORDER SHEET (CPOE ONLY) Normal [facility] ED PHYSICIAN CLINICAL REPORT on 03-11-2025 ED PHYSICIAN CLINICAL REPORT Normal [facility] ED SUPER BILLon 03-11-2025 ED SUPER BILL Normal [facility] ED VISIT SUMMARYon ED VISIT SUMMARY Normal [facility] ED VITALS FLOW SHEETon 03-11 ED VITALS FLOW SHEET Normal [facility] VBGon 03-11-2025 vBE -2 mmol/L Normal -2 - 3 [facility] Comment on above: Performed By: #### 2 40335 ####[facility],[address] [place] [address] 86482 vHCO3 23 mmol/L Normal 23 - 28 [facility] Comment on above: Performed By: #### 2 23699 ####[facility],[address] [place] [address] 11316 vpCO2 37 mmHg Low 41 - 51 [facility] Comment on above: Performed By: #### 2 49412 ####[facility],[address] [place] [address] 15130 vpH 7.40 Normal 7.31 - 7.41 [facility] Comment on above: Performed By: #### 2 56381 ####[facility],[address] [place] [address] 11451 vpO2 44 mmHg Normal [facility] Comment on above: Performed By: #### 2 81814 ####[facility],[address] [place] [address] 89057 vsO2 80 % Normal [facility] Comment on above: Performed By: #### 2 66183 ####[facility],[address] [place] [phone] Internal Medicine Office Vis keith 03-08-2025 Internal Medicine Office Visit [facility] [address] [place] [id number] OFFICE VISIT Date of Service: 03/08/25 MR#: [id number] Acct: [id number] Name: JESSICA ACUNA Rep #: [id number] : 1995 Provider: JUDD kemp Age/Sex: 30/F Location: [email or web address] Status: Signed Intake Vital Signs 07/30/24 11:22 [...] Delivery Method room air 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 Recently patient was seen at [facility] in [place] with a CT scan that showed colitis patient also has a right ovarian cyst. Patient complains of recurring abdominal pain frequently needing to move her bowels after eating pain is worse on the right lower quadrant patient states she feels a heaviness in the right lower quadrant of her abdomen. She did talk to her MARINE METEOROLOGIST about the ovarian cysts however the MARINE METEOROLOGIST provider would like her to have her [...] falls, headache(s) (more content not included)... Normal [facility] Abdomen/Pelvis W IV Cont ONL Yon 02-26-2025 Abdomen/Pelvis W IV Cont ONLY [facility] [address], [place] [address] Abdomen/Pelvis W IV Cont ONLY MR#: [id number] Acct: [id number] Name: JESSICA ACUNA Rep #: [id number] : 1995 F 30 From: Familia krueger MD PCP: JUDD Bernard Status: REG ER Study: Abdomen/Pelvis W IV Cont ONLY Date of Exam: Exam# [id number] Ordering Dr: Nino Sánchez DO PROCEDURE: ABDOMEN/PELVIS [...] lower chance of developing HCC. Reading Location: [facility] CC: JUDD Núñez; Dr. Nino Sánchez DO Resident Engineer: Signed Normal [facility] Absolute lymphocyte countOrd ered By: Nino Sánchez on 02-26-2025 Lymphocytes Auto (Unsp spec) [#/Vol] 1.76 10*3/uL 0.83-4.51 [facility] Absolute neutrophil countOrd ered By: Nino Sánchez on 02-26-2025 Neutrophils (Bld) [#/Vol] 6.7 10*3/uL 2.0-7.7 [facility] Anion gap in Serum or Plasma Ordered By: Nino Sánchez on 02-26-2025 Anion gap [Moles/Vol] 12 mmol/L 5-15 [facility] Automated blood erythrocyte countOrdered By: Nino Sánchez on 02-26-2025 RBC (Bld) [#/Vol] 5.52 10*6/uL High 4.2-5.4 [facility] Comment on above: Performed By: #### L 501.2450, L700.6800, L500.4050, L100.0100 #### [facility] [address] [place], [place], [address] Automated blood hematocrit ( percentage)Ordered By: Nino Sánchez on 02-26-2025 Hematocrit (Bld) [Volume fraction] 46.6 % Normal 37-47 [facility] Comment on above: Performed By: #### L 501.2450, L700.6800, L500.4050, L100.0100 #### [facility] [address] [place], [place], [address] Automated lymphocyte count a s percentage of total leukocytesOrdered By: Nino Sánchez on 02-26-2025 Lymphocytes/100 WBC Auto (Unsp spec) 18.8 % Low 19-41 [facility] BUN/creatinine ratioOrdered By: Nino Sánchez on 02-26-2025 Urea nitrogen/Creatinine [Mass ratio] 16.1 mg/mg 10-20 [facility] Basophil percentageOrdered B y: Nino Sánchez on 02-26-2025 Basophils/100 WBC (Bld) 0.7 % Normal 0-1 [facility] Comment on above: Performed By: #### L 501.2450, L700.6800, L500.4050, L100.0100 #### [facility] [address] [place], [address] Bilirubin Test strip Ql (U)O rdered By: Nino Sánchez on 02-26-2025 Bilirubin Ql (U) Negative Negative [facility] Bilirubin, totalOrdered By: Nino Sánchez on 05-27-2025 Bilirubin [Mass/Vol] 0.32 mg/dL Normal 0.00-1.30 [facility] Comment on above: Performed By: #### L 501.2450, L700.6800, L500.4050, L100.0100 #### [facility] [address] [place], [address] CBC W/Diff, Automatedon 05-2 Absolute Lymph 1.76 X10 3/uL Normal 0.83-4.51 [facility] Comment on above: Performed By: #### L 501.2450, L700.6800, L500.4050, L100.0100 #### [facility] [address] [place], [address] Absolute Neut 6.7 X10 3/uL Normal 2.0-7.7 [facility] Comment on above: Performed By: #### L 501.2450, L700.6800, L500.4050, L100.0100 #### [facility] [address] [place], [address] IG% 0.200 Normal 0.0-0.9 [facility] Comment on above: Result Comment: IG% - Immature Granulocytes (promyelocytes, myelocytes and metamyelocytes) > 1% indicates that a LEFT SHIFT is Present. Performed By: #### L 501.2450, L700.6800, L500.4050, L100.0100 #### [facility] [address] [place], [address] Lymphocytes/100 WBC (Bld) 18.8 % Low 19-41 [facility] Comment on above: Performed By: #### L 501.2450, L700.6800, L500.4050, L100.0100 #### [facility] [address] [place], [address] Nucleated RBC (Bld) [#/Vol] 0 10*3/uL Normal 0-5 [facility] Comment on above: Performed By: #### L 501.2450, L700.6800, L500.4050, L100.0100 #### [facility] [address] [place], [address] RDW SD 37.8 fl Normal 35.1-43.9 [facility] Comment on above: Performed By: #### L 501.2450, L700.6800, L500.4050, L100.0100 #### [facility] [address] [place], [address] Carbon dioxide, total [Moles /volume] in Central venous bloodOrdered By: Nino Sánchez on 02-26-2025 CO2 [Moles/Vol] 20.6 mmol/L Low 21.0-32.0 [facility] Comment on above: Performed By: #### L 501.2450, L700.6800, L500.4050, L100.0100 #### [facility] [address] [place], [address] Chloride assayOrdered By: James Sánchez on 02-26-2025 Chloride [Moles/Vol] 103 mmol/L Normal 98-108 [facility] Comment on above: Performed By: #### L 501.2450, L700.6800, L500.4050, L100.0100 #### [facility] [address] [place], [address] Comprehensive Metabolic Prof ilon 02-26-2025 ALK PHOS 103 U/L Normal 35-104 [facility] Comment on above: Performed By: #### L 501.2450, L700.6800, L500.4050, L100.0100 #### [facility] [address] [place], [address] BUN/CRE 16.1 RATIO Normal 10-20 [facility] Comment on above: Performed By: #### L 501.2450, L700.6800, L500.4050, L100.0100 #### [facility] [address] [place], [address] ECRCL 183.19 ml/min Normal 50-250 [facility] Comment on above: Performed By: #### L 501.2450, L700.6800, L500.4050, L100.0100 #### [facility] [address] [place], [address] GAP 12 Normal 5-15 [facility] Comment on above: Performed By: #### L 501.2450, L700.6800, L500.4050, L100.0100 #### [facility] [address] [place], [address] Potassium [Moles/Vol] 4.0 mmol/L Normal 3.3-5.1 [facility] Comment on above: Performed By: #### L 501.2450, L700.6800, L500.4050, L100.0100 #### [facility] [address] [place], [address] T PROT 7.5 g/dL Normal 5.9-8.4 [facility] Comment on above: Performed By: #### L 501.2450, L700.6800, L500.4050, L100.0100 #### [facility] [address] [place], [address] Comprehensive Metabolic Prof ilOrdered By: Nino Sánchez on 02-26-2025 AST [Catalytic activity/Vol] 16 U/L Normal <=31 [facility] Comment on above: Performed By: #### L 501.2450, L700.6800, L500.4050, L100.0100 #### [facility] [address] [place], [address] Emergency Department Summary on 02-26-2025 Emergency Department Summary [facility] Medical Records Department [address] [place] [address] Emergency Department Summary 02/26/25 MR#: [id number] Acct: [id number] Name: JESSICA ACUNA Rep #: [id number] : 1995 30 From: Nino Sánchez [...] her gallbladder out and is passing gas. [facility] Medical History Non-smoker COVID-19 affecting childbirth [...] following commands knew that she was at [facility] year is 2024 Skin: Warm, dry, [...] Bentyl. Pat (more content not included)... Normal [facility] Eosinophil percentageOrdered By: Nino Sánchez on 02-26-2025 Eosinophils/100 WBC (Bld) 3.2 % Normal 0-5 [facility] Comment on above: Performed By: #### L 501.2450, L700.6800, L500.4050, L100.0100 #### [facility] [address] [place], [place], [address] Erythrocyte distribution wid th ratioOrdered By: Nino Sánchez on 02-26-2025 Erythrocyte distribution width (RBC) [Ratio] 12.3 % Normal 11.6-14.6 [facility] Comment on above: Performed By: #### L 501.2450, L700.6800, L500.4050, L100.0100 #### [facility] [address] [place], [address] Erythrocyte distribution wid th standard deviationOrdered By: Nino Sánchez on 02-26-2025 Erythrocyte distribution width (RBC) [Ratio] 37.8 fl 35.1-43.9 [facility] Glomerular filtration rate ( GFR) estimation/1.73 sq m using serum, plasma, or whole bOrdered By: Nino Sánchez on 02-26-2025 GFR/1.73 sq M.predicted among non-blacks MDRD (S/P/Bld) [Vol rate/Area] 120 mL/min/{1.73_m2} Normal >60 [facility] Comment on above: mL/min/1.73m2 CKD-EP I Creatinine Equation (2020) Result Comment: mL/m in/1.73m2 CKD-EPI Creatinine Equation (2020) Performed By: #### L 501.2450, L700.6800, L500.4050, L100.0100 #### [facility] [address] [place], [address] Hemoglobin measurementOrdere d By: Nino Sánchez on 02-26-2025 Hemoglobin (Bld) [Mass/Vol] 16.1 g/dL High 12.0-15.0 [facility] Comment on above: Performed By: #### L 501.2450, L700.6800, L500.4050, L100.0100 #### [facility] [address] [place], [address] Immature granulocytes/100 WB C Auto (Bld)Ordered By: Nino Sánchez on 02-26-2025 Immature granulocytes/100 WBC (Bld) 0.200 % 0.0-0.9 [facility] Comment on above: IG% - Immature Granu locytes (promyelocytes, myelocytes and metamyelocytes) > 1% indicates that a LEFT SHIFT is Present. Ketones Test strip Ql (U)Ord ered By: Nino Sánchez on 02-26-2025 Ketones Ql (U) Negative Negative [facility] Lipase measurementOrdered By : Nino Sánchez on 02-26-2025 Lipase [Catalytic activity/Vol] 33 U/L Normal 13-75 [facility] Comment on above: Please note:LIPASE r evised reference range effective 23. New Lipase methodology. Expected to produce lower values than the previous assay method. NEW Reference Range: 13 - 75 U/L Result Comment: Antonio live note: LIPASE revised reference range effective 23. New Lipase methodology. Expected to produce lower values than the previous assay method. NEW Reference Range: 13 - 75 U/L Performed By: #### L 501.2450, L700.6800, L500.4050, L100.0100 #### [facility] [address] [place], [address] MCV (mean corpuscular volume ) determinationOrdered By: Nino Sánchez on 02-26-2025 MCV (RBC) [Entitic vol] 84.4 fL Normal 81-99 [facility] Comment on above: Performed By: #### L 501.2450, L700.6800, L500.4050, L100.0100 #### [facility] [address] [place], [place], [address] Mean corpuscular hemoglobin (MCH) determinationOrdered By: Nino Sánchez on 02-26-2025 MCH (RBC) [Entitic mass] 29.2 pg Normal 27.0-32.0 [facility] Comment on above: Performed By: #### L 501.2450, L700.6800, L500.4050, L100.0100 #### [facility] [address] [place], [place], [address] Mean corpuscular hemoglobin concentration (MCHC) determinationOrdered By: Nino Sánchez on 02-26-2025 MCHC (RBC) [Mass/Vol] 34.5 g/dL Normal 32-36 [facility] Comment on above: Performed By: #### L 501.2450, L700.6800, L500.4050, L100.0100 #### [facility] [address] [facility] [place], [place], [address] Mean platelet volume determi nationOrdered By: Nino Sánchez on 02-26-2025 Platelet mean volume (Bld) [Entitic vol] 10.2 fL Normal 6.2-12.0 [facility] Comment on above: Performed By: #### L 501.2450, L700.6800, L500.4050, L100.0100 #### [facility] [address] [facility] [place], [place], [address] Microscopic analysis of urin e for red blood cells (RBC)Ordered By: Nino Sánchez on 02-26-2025 Microscopic analysis of urine for red blood cells (RBC) 0-5 SEEN /hpf 0-5 [facility] Monocyte percentageOrdered B y: Nino Sánchez on 02-26-2025 Monocytes/100 WBC (Bld) 5.7 % Normal 0-10 [facility] Comment on above: Performed By: #### L 501.2450, L700.6800, L500.4050, L100.0100 #### [facility] [address] [place], [place], [address] Mucus LM Ql (Urine sed)Order ed By: Nino Sánchez on 02-26-2025 Mucus Ql (Urine sed) 0 SEEN /hpf [facility] Neutrophil percentageOrdered By: Nino Sánchez on 02-26-2025 Neutrophils/100 WBC (Bld) 71.4 % High 47-70 [facility] Comment on above: Performed By: #### L 501.2450, L700.6800, L500.4050, L100.0100 #### [facility] [address] [place], [address] Nitrite Test strip Ql (U)Ord ered By: Nino Sánchez on 02-26-2025 Nitrite Ql (U) Negative Negative [facility] Nucleated red blood cell per centageOrdered By: Nino Sánchez on 02-26-2025 Nucleated RBC/100 WBC (Bld) [Ratio] 0 % 0-5 [facility] Platelet countOrdered By: James Sánchez on 02-26-2025 Platelets (Bld) [#/Vol] 286 10*3/uL Normal 150-450 [facility] Comment on above: Performed By: #### L 501.2450, L700.6800, L500.4050, L100.0100 #### [facility] [address] [place], [address] Potassium measurement (mass/ volume)Ordered By: Nino Sánchez on 02-26-2025 Potassium (Unsp spec) [Mass/Vol] 4.0 mmol/L 3.3-5.1 [facility] ,Serum,hCG Quali.on 02-26-2025 HCG, SERUM QUAL Negative Normal [facility] Comment on above: Performed By: #### L 501.2450, L700.6800, L500.4050, L100.0100 #### [facility] [address] [place], [address] Protein Test strip Ql (U)Ord ered By: Nino Sánchez on 02-26-2025 Protein Ql (U) 15 mg/dl High Negative [facility] Serum beta-hCG test, qualita tiveOrdered By: Nino Sánchez on 02-26-2025 Beta HCG ( test) Ql Negative [facility] Serum creatinine measurement (mass/volume)Ordered By: Nino Sánchez on 02-26-2025 Creatinine [Mass/Vol] 0.67 mg/dL Low 0.70-1.20 [facility] Comment on above: Performed By: #### L 501.2450, L700.6800, L500.4050, L100.0100 #### [facility] [address] [facility] [place], [address] Serum globulin measurementOr dered By: Nino Sánchez on 02-26-2025 Globulin (S) [Mass/Vol] 3.2 g/dL Normal 2.2-4.2 [facility] Comment on above: Performed By: #### L 501.2450, L700.6800, L500.4050, L100.0100 #### [facility] [address] [place], [address] Serum glucose measurement (m ass/volume)Ordered By: Nino Sánchez on 02-26-2025 Glucose [Mass/Vol] 100 mg/dL High 70-99 [facility] Comment on above: Performed By: #### L 501.2450, L700.6800, L500.4050, L100.0100 #### [facility] [address] [place], [address] Serum or plasma alanine lynch otransferase (ALT) measurementOrdered By: Nino Sánchez on 02-26-2025 ALT [Catalytic activity/Vol] 21 U/L Normal <=34 [facility] Comment on above: Performed By: #### L 501.2450, L700.6800, L500.4050, L100.0100 #### [facility] [address] [facility] [place], [address] Serum or plasma albumin elizabeth urement (mass/volume)Ordered By: Nino Sánchez on 02-26-2025 Albumin [Mass/Vol] 4.3 g/dL Normal 3.5-5.0 [facility] Comment on above: Performed By: #### L 501.2450, L700.6800, L500.4050, L100.0100 #### [facility] [address] [facility] [place], [address] Serum or plasma albumin/glob ulin mass ratioOrdered By: Nino Sánchez on 02-26-2025 Albumin/Globulin [Mass ratio] 1.3 {ratio} Normal 0.9-2.4 [facility] Comment on above: Performed By: #### L 501.2450, L700.6800, L500.4050, L100.0100 #### [facility] [address] [place], [address] Serum or plasma alkaline abilio sphatase measurementOrdered By: Nino Sánchez on 02-26-2025 ALP [Catalytic activity/Vol] 103 U/L 35-104 [facility] Serum or plasma calcium elizabeth urement (mass/volume)Ordered By: Nino Sánchez on 02-26-2025 Calcium [Mass/Vol] 9.3 mg/dL Normal 7.6-11.0 [facility] Comment on above: Performed By: #### L 501.2450, L700.6800, L500.4050, L100.0100 #### [facility] [address] [facility] [place], [address] Serum or plasma urea nitroge n measurement (mass/volume)Ordered By: Nino Sánchez on 02-26-2025 Urea nitrogen [Mass/Vol] 11 mg/dL Normal 4-19 [facility] Comment on above: Performed By: #### L 501.2450, L700.6800, L500.4050, L100.0100 #### [facility] [address] [place], [address] Sodium levelOrdered By: Abiola Sánchez on 02-26-2025 Sodium [Moles/Vol] 136 mmol/L Normal 133-145 [facility] Comment on above: Performed By: #### L 501.2450, L700.6800, L500.4050, L100.0100 #### [facility] [address] [place], [place], [id number] ([address] Squamous epithelial cells de tection in urine sediment by light microscopyOrdered By: Nino Sánchez on 02-26-2025 Epithelial cells.squamous LM Ql (Urine sed) 0 SEEN /hpf 5-10 [facility] Total proteinOrdered By: Samuel Sánchez on 02-26-2025 Protein [Mass/Vol] 7.5 g/dL 5.9-8.4 [facility] Urinalysis, Completeon 02-26 WBC 0-5 SEEN Normal 0-5 [facility] Comment on above: Order Comment: MARVIN CTOR TO SPECIFY Performed By: #### L 400.0001 ####[facility] [address] [place], [address] RBC 0-5 SEEN Normal 0-5 [facility] Comment on above: Order Comment: MARVIN CTOR TO SPECIFY Performed By: #### L 400.0001 ####[facility] [address] [place], [address] BACTERIA 0 SEEN Normal None Seen [facility] Comment on above: Order Comment: MARVIN CTOR TO SPECIFY Performed By: #### L 400.0001 ####[facility] [address] [place], [address] EPI,SQUAMOUS 0 SEEN Normal 5-10 [facility] Comment on above: Order Comment: MARVIN CTOR TO SPECIFY Performed By: #### L 400.0001 ####[facility] [address] [place], [place], [address] Mucus Ql (Urine sed) [address] [facility] Comment on above: Order Comment: MARVIN CTOR TO SPECIFY Performed By: #### L 400.0001 ####[facility] [address] [place], [place], [id number] Urine clarityOrdered By: Samuel Sánchez on 02-26-2025 Clarity (U) Clear Clear [facility] Urine color determinationOrd ered By: Nino Sánchez on 02-26-2025 Color (U) Yellow Yellow [facility] Urine glucose detectionOrder ed By: Nino Sánchez on 02-26-2025 Glucose Ql (U) Normal mg/dl Normal [facility] Urine leukocyte esterase det ection by dipstickOrdered By: Nino Sánchez on 02-26-2025 Leukocyte esterase Test strip Ql (U) Negative Negative [facility] Urine pHOrdered By: Nino ralph on 02-26-2025 pH (U) 6.0 [pH] 5.0 - 8.0 [facility] Urine sediment bacteria coun t by microscopy (number/high power field)Ordered By: Nino Sánchez on 02-26-2025 Bacteria LM.HPF (Urine sed) [#/Area] 0 /[HPF] None Seen [facility] Urine specific gravity measu rementOrdered By: Nino Sánchez on 02-26-2025 Specific gravity (U) [Rel density] 1.020 1.002-1.030 [facility] Urine urobilinogen measureme ntOrdered By: Nino Sánchez on 02-26-2025 Urobilinogen Ql (U) Normal mg/dl Normal [facility] White blood cell (WBC) count Ordered By: Nino Sánchez on 02-26-2025 WBC (Bld) [#/Vol] 9.4 10*3/uL Normal 4.4-11.0 [facility] Comment on above: Performed By: #### L 501.7660, L700.0510, L500.4050, L100.0100 #### [facility] [place], [address] White blood cell countOrdere d By: Nino Sánchez on 02-26-2025 White blood cell count 0-5 SEEN /hpf 0-5 [facility] EMERGENCY DEPARTMENTon 02-23 EMERGENCY DEPARTMENT [place] [id number] [facility] [employer] [facility]NAGEMENT EMERGENCY DEPARTMENT : [phone] Signed with Addenda Patient: JESSICA ACUNA Acct:[id number] MR UN: [id number] : 1995 Sex: F Loc: ED ADM [...] Signed Date/Time: 02/03/252109 Co-Signed: Co-signed Date/Time 02/23/25 0852 History of Present Illness - General Source: [...] Smoked Hx Chewing Tobacco Use: No - [place]/Gender ID What is your current Gender Identity? [...] mood - Skin Skin Color: Present: Normal, [place] Skin exam: Present: warm, dry - Vital [...] (43.0-65.0) % Lymph % (Auto) (17.0-45.5) % Simpson % (Auto) (5.5-11.7) % Eos % (Auto) [...] (21-34) mmol/L (more content not included)... Normal [facility] CBC + DIFFon 02-17-2025 Baso # 0.01 x10EE3/UL Normal 0.00 - 0.10 [facility] Comment on above: Performed By: #### 2 70024 ####[facility],[address] [place] [address] Basophils/100 WBC (Bld) 0.2 % Normal 0.0 - 2.0 [facility] Comment on above: Performed By: #### 2 68008 ####[facility],[address] [place] [address]3690 CBC + DIFF Normal [facility] Comment on above: Result Comment: CBC- COMPLETE BLOOD COUNT Performed By: #### 2 22064 ####[facility],[address] [place] [address] EO # 0.34 x10EE3/UL Normal 0.00 - 0.50 [facility] Comment on above: Performed By: #### 2 24738 ####[facility],[address] [place] [address] Eosinophils/100 WBC (Bld) 4.9 % Normal 0.0 - 7.0 [facility] Comment on above: Performed By: #### 2 17855 ####[facility],[address] [place], [place] [address] Erythrocyte distribution width (RBC) [Ratio] 13.2 % Normal 12.0 - 15.6 [facility] Comment on above: Performed By: #### 2 53202 ####[facility],[address] [place] [address] Hematocrit (Bld) [Volume fraction] 42.0 % Normal 34.0 - 46.0 [facility] Comment on above: Performed By: #### 2 15206 ####[facility],[address] [place] [address] Hemoglobin (Bld) [Mass/Vol] 15.0 g/dL Normal 12.0 - 16.0 [facility] Comment on above: Performed By: #### 2 99138 ####[facility],[address] [place], [place] [address] Lymph # 1.57 x10EE3/UL Normal 0.80 - 2.80 [facility] Comment on above: Performed By: #### 2 90439 ####[facility],[address] [place] [address]120 Lymphocytes/100 WBC (Bld) 23.0 % Normal 20.0 - 45.0 [facility] Comment on above: Performed By: #### 2 33783 ####[facility],[address] [place] [address] MANUAL DIFF N/A Normal [facility] Comment on above: Performed By: #### 2 83789 ####[facility],[address] [place] [address] MCH (RBC) [Entitic mass] 31 pg Normal 27 - 33 [facility] Comment on above: Performed By: #### 2 62283 ####[place] [address] MCHC 36 X10 3 Normal 32 - 36 [facility] Comment on above: Performed By: #### 2 00838 ####[place] [id number] MCV (RBC) [Entitic vol] 86 fL Normal 80 - 99 [facility] Comment on above: Performed By: #### 2 67046 ####[place] [id number] Simpson # 0.25 x10EE3/UL Normal 0.20 - 1.00 [facility] Comment on above: Performed By: #### 2 81211 ####[address] [address] MONOS % 3.7 % Normal 0.0 - 10.0 [facility] Comment on above: Performed By: #### 2 01439 ####[facility],[address] [place] [address]229 Morphology Kamlesh (Bld) [Interp] N/A Normal [facility] Comment on above: Performed By: #### 2 43597 ####[facility],[address] [place] [address]677 Neut # 4.67 x10EE3/UL Normal 1.50 - 7.10 [facility] Comment on above: Performed By: #### 2 07164 ####[facility],[address] [place] [address]40[address] Neutrophils/100 WBC (Bld) 68.3 % Normal 46.0 - 76.0 [facility] Comment on above: Performed By: #### 2 94673 ####[facility],[address] [place] [address] 80547 PLATELET 260 x10EE3/UL Normal 150 - 450 [facility] Comment on above: Performed By: #### 2 71067 ####[address] [address] Platelet mean volume (Bld) [Entitic vol] 8.6 fL Normal 6.6 - 10.5 [facility] Comment on above: Result Comment: AUTO MATED DIFFERENTIAL Performed By: #### 2 61734 ####[facility],[address] [place] [address] 23260 RBC 4.89 x 10EE6/UL Normal 4.10 - 5.30 [facility] Comment on above: Performed By: #### 2 72311 ####[facility],[address] [place] [address] 15709 WBC 6.8 x 10EE3/UL Normal 4.5 - 10.8 [facility] Comment on above: Performed By: #### 2 91755 ####[facility],[address] [place] [address] 12019 CMP with eGFRon 02-17-2025 AGE 30 years Normal [facility] Comment on above: Performed By: #### 2 09699 ####[facility],[address] [place] [address] 70349 Albumin [Mass/Vol] 3.2 g/dL Low 3.4 - 5.0 [facility] Comment on above: Performed By: #### 2 54622 ####[facility],[address] [place] [address] 86142 Albumin/Globulin [Mass ratio] 0.9 {ratio} Normal 0.9 - 1.6 [facility] Comment on above: Performed By: #### 2 47916 ####[facility],[address] [place] [address] 56605 ALK PHOS 88 U/L Normal 46 - 116 [facility] Comment on above: Performed By: #### 2 59846 ####[facility],[address] [place] [address] 98626 ALT [Catalytic activity/Vol] 39 U/L Normal 16 - 63 [facility] Comment on above: Performed By: #### 2 35120 ####[facility],[address] [place], [place] [address] Anion gap [Moles/Vol] 11 mmol/L Normal 10 - 20 [facility] Comment on above: Performed By: #### 2 54727 ####[facility],[address] [place] [address] 29077 AST [Catalytic activity/Vol] 15 U/L Normal 13 - 39 [facility] Comment on above: Performed By: #### 2 35692 ####[facility],[address] [place] [address] 09784 B/C RATIO 16 ratio Normal 0 - 30 [facility] Comment on above: Performed By: #### 2 94812 ####[facility],[address] [place] [address] 24320 Bilirubin [Mass/Vol] 0.3 mg/dL Normal 0.2 - 1.0 [facility] Comment on above: Performed By: #### 2 30975 ####[facility],[address] [place] [address]39 Calcium [Mass/Vol] 8.8 mg/dL Normal 8.5 - 10.1 [facility] Comment on above: Performed By: #### 2 52937 ####[place] [address] Chloride [Moles/Vol] 105 mmol/L Normal 98 - 107 [facility] Comment on above: Performed By: #### 2 78975 ####[facility],[address] [place] [address] CMP with eGFR Normal [facility] Comment on above: Result Comment: COMP REHENSIVE METABOLIC PANEL Performed By: #### 2 34500 ####[place] [address] CO2 [Moles/Vol] 25.7 mmol/L Normal 21.0 - 32.0 [facility] Comment on above: Performed By: #### 2 72672 ####[place] [address] Creatinine [Mass/Vol] 0.75 mg/dL Normal 0.55 - 1.02 [facility] Comment on above: Performed By: #### 2 73301 ####[place] [address] GFR/1.73 sq M.predicted among non-blacks MDRD (S/P/Bld) [Vol rate/Area] mL/min/{1.73_m2} Normal 60 - 999 [facility] Comment on above: Performed By: #### 2 06838 ####[place] [address] Result Comment: ACCO RDING TO THE NATIONAL KIDNEY DISEASE EDUCATION PROGRAM(NKDE), A NORMAL eGFRIS A VALUE GREATER THAN OR EQUAL TO 60 ML/MIN/1.73 SQ METERS.CHRONIC KIDNEY DISEASE: <60mL/MIN/1.73 SQ METERSKIDNEY FAILURE: <15mL/MIN/1.73 SQ METERSTHIS TEST SHOULD ONLY BE USED FOR PATIENTS 18 YEARS OF AGE AND OLDER. Globulin (S) [Mass/Vol] 3.6 g/dL Normal 1.5 - 3.8 [facility] Comment on above: Performed By: #### 2 04254 ####[facility],[address] [place] [address] 31042 Glucose [Mass/Vol] 100 mg/dL Normal 74 - 106 [facility] Comment on above: Performed By: #### 2 91102 ####[facility],[address] [place] [address] 76648 Potassium [Moles/Vol] 3.4 mmol/L Low 3.5 - 5.1 [facility] Comment on above: Performed By: #### 2 40749 ####[facility],[address] [place] [address] 21206 Protein [Mass/Vol] 6.8 g/dL Normal 6.4 - 8.2 [facility] Comment on above: Performed By: #### 2 27812 ####[facility],[address] [place] [address] 90704 Sodium [Moles/Vol] 138 mmol/L Normal 136 - 145 [facility] Comment on above: Performed By: #### 2 34579 ####[facility],[address] [place] [address] 54173 Urea nitrogen [Mass/Vol] 12 mg/dL Normal 7 - 18 [facility] Comment on above: Performed By: #### 2 00613 ####[facility],[address] [place] [address] ABDOMEN/PELVIS Won 2024 CT ABDOMEN/PELVIS W Normal [facility] ED MED ADMINISTRATION DETAIL on 02-17-2025 ED MED ADMINISTRATION DETAIL Normal [facility] ED NURSES CLINICAL NOTEon ED NURSES CLINICAL NOTE Normal [facility] ED ORDER SHEET (CPOE ONLY)on 02-17-2025 ED ORDER SHEET (CPOE ONLY) Normal [facility] ED PHYSICIAN CLINICAL REPORT on 02-17-2025 ED PHYSICIAN CLINICAL REPORT Normal [facility] ED SUPER BILLon 02-17-2025 ED SUPER BILL Normal [facility] ED VISIT SUMMARYon ED VISIT SUMMARY Normal [facility] ED VITALS FLOW SHEETon 02-17 ED VITALS FLOW SHEET Normal [facility] LIPASEon 02-17-2025 Lipase [Catalytic activity/Vol] 39.0 U/L Normal 15.0 - 78.0 [facility] Comment on above: Result Comment: *PLE ASE NOTE THAT RANGES FOR LIPASE HAVE CHANGED OF 09/30/23 DUE TO AN ASSAYUPDATE BY THE LIME HIDE INSPECTOR.THE NEW ASSAY RANGE IS 6-250 U/L, WITH A REFERENCERANGE OF 16-77 U/L. Performed By: #### 2 35062 ####[facility],[address] [place] [address] URINALYSISon 02-17-2025 Amorphous NONE Normal [facility] Comment on above: Performed By: #### 2 11563 ####[facility],[address] [place] [address] Bacteria NONE Normal [facility] Comment on above: Performed By: #### 2 82314 ####[facility],[address] [place] [address] 99201 Bilirubin Ql (U) Negative Normal NORMAL: NEGATIVE [facility] Comment on above: Performed By: #### 2 13895 ####[facility],[address] [place] [address] Casts NONE Normal [facility] Comment on above: Performed By: #### 2 40198 ####[facility],[address] [place] [address] Clarity (U) clear Normal NORMAL: CLEAR [facility] Comment on above: Performed By: #### 2 81032 ####[facility],[address] [place] [address] 99164 Color (U) p.yel Normal NORMAL: YELLOW [facility] Comment on above: Performed By: #### 2 04876 ####[facility],[address] [place] [address] 36767 Crystals LM Nom (Urine sed) NONE Normal [facility] Comment on above: Performed By: #### 2 39504 ####[facility],[address] [place] [address] 69458 Epi Cells MODERATE Normal [facility] Comment on above: Performed By: #### 2 64792 ####[facility],[address] [place] [address] 09893 Glucose Ql (U) NORM Normal NORMAL: NORMAL [facility] Comment on above: Performed By: #### 2 84366 ####[facility],[address] [place] [address] 50651 Hemoglobin Ql (U) 10 Abnormal NORMAL: NEGATIVE [facility] Comment on above: Performed By: #### 2 03162 ####[facility],[address] [place] [address] 80490 Ketone Negative Normal NORMAL: NEGATIVE [facility] Comment on above: Performed By: #### 2 47164 ####[facility],[address] [place] [address] 74417 Leukocytes Negative Normal NORMAL: NEGATIVE [facility] Comment on above: Performed By: #### 2 84839 ####[facility],[address] [place] [address] 61848 Mucous NONE Normal [facility] Comment on above: Performed By: #### 2 61777 ####[facility],[address] [place] [address] 49219 Nitrite Ql (U) Negative Normal NORMAL: NEGATIVE [facility] Comment on above: Performed By: #### 2 21888 ####[facility],[address] [place] [address] 26888 pH (U) 7 [pH] Normal NORMAL: 5.0-8.0 [facility] Comment on above: Performed By: #### 2 95366 ####[facility],[address] [place] [address] Protein Ql (U) 15 Abnormal NORMAL: NEGATIVE [facility] Comment on above: Performed By: #### 2 60527 ####[facility],[address] [place] [address] Rbc NONE Normal 0-3/hpf [facility] Comment on above: Performed By: #### 2 49195 ####[facility],[address] [place] [address] Sp Tatum 1.010 Normal NORMAL: 1.010-1.030 [facility] Comment on above: Performed By: #### 2 62617 ####[facility],[address] [place] [address] Specimen Type R Normal [facility] Comment on above: Performed By: #### 2 31443 ####[facility],[address] [place] [address] Urinalysis dipstick W Reflex Microscopic panel (U) SEE BELOW Normal [facility] Comment on above: Result Comment: MICR OSCOPIC Performed By: #### 2 39386 ####[facility],[address] [place] [address] Urobilinog NORM Normal NORMAL: NORMAL [facility] Comment on above: Performed By: #### 2 84487 ####[facility],[address] [place] [address] Wbc NONE Normal 0-5/hpf [facility] Comment on above: Performed By: #### 2 57032 ####[facility],[address] [place] [address] Yeast NONE Normal [facility] Comment on above: Performed By: #### 2 [id number] ####[facility],[address] [place] [address] Absolute immature granulocyt e countOrdered By: SIMBA ABRAHAM on 02-03-2025 Immature granulocytes (Bld) [#/Vol] Absolute immature granulocyte count 0.00-1.00 [facility] Absolute lymphocyte countOrd ered By: SIMBA ABRAHAM on 02-03-2025 Lymphocytes Auto (Unsp spec) [#/Vol] Absolute lymphocyte count 1.30-2.90 [facility] Bacteria detection in urine sediment by light microscopyOrdered By: SIMBA ABRAHAM on 02-03-2025 Bacteria LM Ql (Urine sed) Bacteria detection in urine sediment by light microscopy 0 - 1+ [facility] Basic Metabolic Panelon 05 Anion gap [Moles/Vol] 9.6 mmol/L Normal 8.0-16.0 [facility] Comment on above: Performed By: #### B MP #### [id number] [place] [address] Calcium [Mass/Vol] 8.9 mg/dL Normal 8.2-10.0 [facility] Comment on above: Performed By: #### B MP #### [facility] [address] [place] [address] Chloride [Moles/Vol] 106 mmol/L Normal 94-110 [facility] Comment on above: Performed By: #### B MP #### [facility] [address] [place] [address] CO2 [Moles/Vol] 28 mmol/L Normal 21-34 [facility] Comment on above: Performed By: #### B MP #### [facility] [address] [place] [address] Creatinine [Mass/Vol] 0.80 mg/dL Normal 0.51-0.95 [facility] Comment on above: Performed By: #### B MP #### [facility] [address] [place] [address] EGFR Other Races >60 Normal >60 [facility] Comment on above: Performed By: #### B MP #### [facility] [address] [place] [address] GFR/1.73 sq M.predicted among blacks MDRD (S/P/Bld) [Vol rate/Area] mL/min/{1.73_m2} Normal >60 [facility] Comment on above: Result Comment: Drafter (Cad) Electronic paula Kidney Disease less than 60 mL/min/1.73 m2 Kidney Failure less than 15 mL/min/1.73 m2 Average estimated GFR by age: 30-39 years 107 mL/min/1.73 m2 Performed By: #### B MP #### [facility] [address] [place] [address] Glucose [Mass/Vol] 74 mg/dL Normal 65-100 [facility] Comment on above: Performed By: #### B MP #### [facility] [address] [place] [address] Potassium [Moles/Vol] 3.6 mmol/L Normal 3.3-5.1 [facility] Comment on above: Performed By: #### B MP #### [facility] [address] [place] [address] Sodium [Moles/Vol] 140 mmol/L Normal 132-145 [facility] Comment on above: Performed By: #### B MP #### [facility] [address] [place] [address] Urea nitrogen [Mass/Vol] 12.6 mg/dL Normal 3.2-26.9 [facility] Comment on above: Performed By: #### B MP #### [facility] [address] [place] [address] Urea nitrogen/Creatinine [Mass ratio] 16 mg/mg Normal 6-20 [facility] Comment on above: Performed By: #### B MP #### [id number] [place] [address] Basophils Auto (Bld) [#/Vol] Ordered By: SIMBA ABRAHAM on 02-03-2025 Basophils (Bld) [#/Vol] Automated blood basophil count (number/volume) 0.00-0.10 [facility] Blood absolute eosinophil co untOrdered By: SIMBA ABRAHAM on 02-03-2025 Eosinophils (Bld) [#/Vol] Blood absolute eosinophil count High 0.00-0.20 [facility] Blood basophils/100 leukocyt esOrdered By: SIMBA ABRAHAM on 02-03-2025 Basophils/100 WBC (Bld) Blood basophils/ 100 leukocytes 0.2-1.0 [facility] Blood erythrocytes count (nu mber/volume)Ordered By: SIMBA ABRAHAM on 02-03-2025 RBC (Bld) [#/Vol] Blood erythrocyte count 3.83- 5.19 [facility] Blood hematocrit (volume fra ction)Ordered By: SIMBA ABRAHAM on 02-03-2025 Hematocrit (Bld) [Volume fraction] Blood hematocrit (volume fraction) 33.4-46.0 [facility] Blood leukocytes count (numb er/volume)Ordered By: SIMBA ABRAHAM on 02-03-2025 WBC (Bld) [#/Vol] Blood leukocytes cou nt (number/volume) 3.6-10.8 [facility] Blood platelet mean volumeOr dered By: SIMBA ABRAHAM on 02-03-2025 Platelet mean volume (Bld) [Entitic vol] Blood platelet mean volume 7.4-10.4 [facility] CBC w/Auto Differentialon Basophils Abs. # 0.06 K/uL Normal 0.00-0.10 [facility] Comment on above: Performed By: #### U AMRC #### [address] [address] Basophils/100 WBC (Bld) 0.7 % Normal 0.2-1.0 [facility] Comment on above: Performed By: #### U AMRC #### [facility] [address] [place] [address] Eosinophils (Bld) [#/Vol] 0.40 10*3/uL High 0.00-0.20 [facility] Comment on above: Performed By: #### U AMRC #### [id number] [place] [address] Eosinophils/100 WBC (Bld) 4.3 % High 0.9-2.9 [facility] Comment on above: Performed By: #### U AMRC #### [place] [address] Erythrocyte distribution width (RBC) [Ratio] 12.5 % Normal 11.5-14.5 [facility] Comment on above: Performed By: #### U AMRC #### [address] [place] [address] Hematocrit (Bld) [Volume fraction] 43.2 % Normal 33.4-46.0 [facility] Comment on above: Performed By: #### U AMRC #### [address] [place] [address] Hemoglobin (Bld) [Mass/Vol] 14.7 g/dL High 11.1-13.7 [facility] Comment on above: Performed By: #### U AMRC #### [address] [place] [address] Imm Grans % 0.10 % Normal 0.00-1.00 [facility] Comment on above: Performed By: #### U AMRC #### [id number] Imm Grans Absolute # 0.01 K/uL Normal 0.00-0.10 [facility] Comment on above: Performed By: #### U AMRC #### [address] [place] [address] Lymphocytes (Bld) [#/Vol] 2.40 10*3/uL Normal 1.30-2.90 [facility] Comment on above: Performed By: #### U AM[facility] #### [address] [address] Lymphocytes/100 WBC (Bld) 27.7 % Normal 17.0-45.5 [facility] Comment on above: Performed By: #### U AMRC #### [address] [address] MCH (RBC) [Entitic mass] 29.7 pg Normal 27.0-31.0 [facility] Comment on above: Performed By: #### U AMRC #### [address] [place] [address] MCHC (RBC) [Mass/Vol] 34.0 g/dL Normal 33.0-37.0 [facility] Comment on above: Performed By: #### U AMRC #### [address] [address] MCV (RBC) [Entitic vol] 87.3 fL Normal 81.0-99.0 [facility] Comment on above: Performed By: #### U AMRC #### [address] [place] [address] Monocytes (Bld) [#/Vol] 0.70 10*3/uL Normal 0.30-0.80 [facility] Comment on above: Performed By: #### U AMRC #### [facility] [address] [place] [address] Monocytes/100 WBC (Bld) 7.6 % Normal 5.5-11.7 [facility] Comment on above: Performed By: #### U AMRC #### [address] [place] [address] Neutrophils Abs. # 5.15 K/uL High 2.20-4.80 [facility] Comment on above: Performed By: #### U AMRC #### [address] [place] [address] Neutrophils/100 WBC (Bld) 59.6 % Normal 43.0-65.0 [facility] Comment on above: Performed By: #### U AMRC #### [address] [place] [address] Platelet mean volume (Bld) [Entitic vol] 10.0 fL Normal 7.4-10.4 [facility] Comment on above: Performed By: #### U AMRC #### [address] [place] [address] Platelets (Bld) [#/Vol] 258 10*3/uL Normal 148-402 [facility] Comment on above: Performed By: #### U AMRC #### [address] [place] [address] RBC (Bld) [#/Vol] 4.95 10*6/uL Normal 3.83-5.19 [facility] Comment on above: Performed By: #### U AMRC #### [address] [place] [address] WBC (Bld) [#/Vol] 8.6 10*3/uL Normal 3.6-10.8 [facility] Comment on above: Performed By: #### U [facility] #### [facility] [address] [place] [address] CT ABD/PELVIS Won 02-03-2025 CT ABD/PELVIS W [...] process in the abdomen or in Normal [facility] LAWRENCEINon 02-03-2025 TERENCE Patient: HORACE ACUNA MRUN [id number] Location: [facility] Aount: [id number] : 1995 Age: 30 Sex F Lab NumbEr [id number] Requested by: SIMBA ABRAHAM Admitdate: 02/03/25 Source: UR Collected: 02/03/25 18:15 Site: Received : 02/03/25 18:56 Culture, Urine FINAL 02/05/25 07:50 02/04/25 Performing Lab: [address] [address] Director: Marcellus Hardwick MD -- AEROBIC CULTURE RESULTS: NO BACTERIAL GROWTH Normal [facility] Comment on above: Performed By: #### U AMR #### [address] [address] Calcium measurement (mass fr action)Ordered By: SIMBA ABRAHAM on 02-03-2025 Calcium (Unsp spec) [Mass fraction] Calcium measurement (mass fraction) 8.2-10.0 [facility] Determination of erythrocyte mean corpuscular volume (MCV)Ordered By: SIMBA ABRAHAM on 02-03-2025 MCV (RBC) [Entitic vol] Determination of erythrocyte mean corpuscular volume (MCV) 81.0-99.0 [facility] Eosinophil count as percenta ge of total leukocytesOrdered By: SIMBA ABRAHAM on 02-03-2025 Eosinophils/100 WBC (Unsp spec) Eosinophil count as percentage of total leukocytes High 0.9-2.9 [facility] Erythrocyte distribution wid th standard deviationOrdered By: SIMBA ABRAHAM on 02-03-2025 Erythrocyte distribution width (RBC) [Ratio] Erythrocyte distribution width standard deviation 11.5-14.5 [facility] Glomerular filtration rate ( GFR) estimation/1.73 sq m using serum, plasma, or whole bOrdered By: SIMBA ABRAHAM on 02-03-2025 GFR/1.73 sq M.predicted among blacks CKD-EPI (S/P/Bld) [Vol rate/Area] Glomerular filtration rate (GFR) estimation/1.73 sq m using serum, plasma, or whole b >60 [facility] Comment on above: Chronic Kidney Disea se less than 60 mL/min/1.73 f2Kbyuyr Failure less than 15 mL/min/1.73 k1Zuwtohs estimated GFR by age:30-39 years 107 mL/min/1.73 m2 GFR/1.73 sq M.predicted among non-blacks CKD-EPI (S/P/Bld) [Vol rate/Area] Glomerular filtration rate (GFR) estimation/1.73 sq m using serum, plasma, or whole b >60 [facility] HCG Quanton 02-03-2025 HCG Quant <1 Normal [facility] Comment on above: Result Comment: Expe cted values for Quantitative HCG Assay: Years Range Male 19-83 0-2 mIU/mL Non- female 22-87 0-6 mIU/mL Maxium level of 5,000 to 200,000 mIU/mL is reached at 10-12wks. Levels decline slowly to 1,000-50,000 during 3rd trimester.wks. Please note reference range change Effective: 10-18-03 Performed By: #### H CGQ #### [address] [address] Ketones Test strip Ql (U)Ord ered By: SIMBA ABRAHAM on 02-03-2025 Ketones Ql (U) Urine ketones detect ion by test strip Negative [facility] Leukocyte esterase ur dipsti ckOrdered By: SIMBA ABRAHAM on 02-03-2025 Leukocyte esterase Test strip Ql (U) Urine leukocyte esterase detection by dipstick Abnormal Negative [facility] Lymphocytes/100 WBC Auto (Bl d)Ordered By: SIMBA ABRAHAM on 02-03-2025 Lymphocytes/100 WBC (Bld) Automated blood lymphocyte count as percentage of total leukocytes 17.0-45.5 [facility] MCH Auto (RBC) [Entitic mass ]Ordered By: SIMBA ABRAHAM on 02-03-2025 MCH (RBC) [Entitic mass] Automated erythrocyte mean corpuscular hemoglobin (MCH) measurement (mass/erythrocyte 27.0-31.0 [facility] MCHC Auto (RBC) [Mass/Vol]Or dered By: SIMBA ABRAHAM on 02-03-2025 MCHC (RBC) [Mass/Vol] Automated erythroc yte mean corpuscular hemoglobin concentration (MCHC) measurement (m 33.0-37.0 [facility] Monocytes Auto (Bld) [#/Vol] Ordered By: SIMBA ABRAHAM on 02-03-2025 Monocytes (Bld) [#/Vol] Automated blood monocyte count (number/volume) 0.30-0.80 [facility] Monocytes/100 WBC Auto (Bld) Ordered By: SIMBA ABRAHAM on 02-03-2025 Monocytes/100 WBC (Bld) Automated blood monocyte count as percentage of total leukocytes 5.5-11.7 [facility] Mucus LM Ql (Urine sed)Order ed By: SIMBA ABRAHAM on 02-03-2025 Mucus Ql (Urine sed) Mucus detection in urine sediment by light microscopy [facility] Neutrophils Auto (Bld) [#/Vo l]Ordered By: SIMBA ABRAHAM on 02-03-2025 Neutrophils (Bld) [#/Vol] Automated blood neutrophil count (number/volume) High 2.20-4.80 [facility] Neutrophils seg % bldOrdered By: SIMBA ABRAHAM on 02-03-2025 Segmented neutrophils/100 WBC (Bld) Neutrophils seg % bld 43.0-65.0 [facility] Nitrite Test strip Ql (U)Ord ered By: SIMBA ABRAHAM on 02-03-2025 Nitrite Ql (U) Nitrite [facility] dipstick [facility] Plate[facility] Auto (Bld) [#/Vol] Ordered By: SIMBA ABRAHAM on 02-03-2025 Platelets (Bld) [#/Vol] Automated blood platelet count (number/volume) 148-402 [facility] Potassium (Bld) [Moles/Vol]O rdered By: SIMBA ABRAHAM on 02-03-2025 Potassium [Moles/Vol] Potassium [Moles/v olume] in Blood 3.3-5.1 [facility] Protein ur QLOrdered By: AUDREY ABRAHAM on 02-03-2025 Protein Ql (U) Protein ur QL Abnormal Negative [facility] RBC LM Ql (Urine sed)Ordered By: SIMBA ABRAHAM on 02-03-2025 RBC Ql (U) Erythrocytes detecti on in urine sediment by light microscopy 0 - 2 [facility] RBC Test strip (U) [#/Vol]Or dered By: SIMBA ABRAHAM on 02-03-2025 RBC (U) [#/Vol] Urine erythrocytes c ount by test strip (number/volume) Abnormal Negative [facility] Serum or plasma anion gapOrd ered By: SIMBA ABRAHAM on 02-03-2025 Anion gap [Moles/Vol] Serum or plasma an ion gap 8.0-16.0 [facility] Serum or plasma carbon dioxi de measurement (moles/volume)Ordered By: SIMBA ABRAHAM on 02-03-2025 CO2 [Moles/Vol] Serum or plasma carb on dioxide measurement (moles/volume) 21-34 [facility] Serum or plasma chloride ginger surement (moles/volume)Ordered By: SIMBA ABRAHAM on 02-03-2025 Chloride [Moles/Vol] Serum or plasma chl oride measurement (moles/volume) 94-110 [facility] Serum or plasma creatinine m easurement (mass/volume)Ordered By: SIMBA ABRAHAM on 02-03-2025 Creatinine [Mass/Vol] Serum or plasma creatinine measurement (mass/volume) 0.51-0.95 [facility] Serum or plasma glucose elizabeth urement (mass/volume)Ordered By: SIMBA ABRAHAM on 02-03-2025 Glucose [Mass/Vol] Serum or plasma gluc ose measurement (mass/volume) 65-100 [facility] Serum or plasma human chorio paula gonadotropin (hCG) measurement (units/volume)Ordered By: SIMBA ABRAHAM on 02-03-2025 HCG Qn Serum or plasma silke n chorionic gonadotropin (hCG) measurement (units/volume) [facility] Comment on above: Expected values for [...] or plasma sodi um measurement (moles/volume) 132-145 [facility] Serum or plasma urea nitroge n measurement (mass/volume)Ordered By: SIMBA ABRAHAM on 02-03-2025 Urea nitrogen [Mass/Vol] Serum or plasma urea nitrogen measurement (mass/volume) 3.2-26.9 [facility] Serum or plasma urea nitroge n/creatinine mass ratioOrdered By: SIMBA ABRAHAM on 02-03-2025 Urea nitrogen/Creatinine [Mass ratio] Serum or plasma urea nitrogen/creatinine mass ratio 6-20 [facility] Specific gravity Test strip (U) [Rel density]Ordered By: SIMBA ABRAHAM on 02-03-2025 Specific gravity (U) [Rel density] Specific gravity ur dipstick 1.015-1.025 [facility] UA w/Micrscopic-reflex cultu reon 02-03-2025 Appearance (U) sl.cloudy Normal Clear [facility] Comment on above: Performed By: #### U AMR #### [address] [place] [address] Bacteria 3+ /hpf Normal 0 - 1+ [facility] Comment on above: Performed By: #### U AMRC #### [address] [place] [address] Bilirubin Ql (U) Negative Normal Negative [facility] Comment on above: Performed By: #### U [facility] #### [address] [address] Casts LEARNING SUPPORT TEACHER Normal [facility] Comment on above: Performed By: #### U AMRC #### [facility] [address] [place] [address] Casts. LEARNING SUPPORT TEACHER Normal [facility] Comment on above: Performed By: #### U AMRC #### [facility] [address] [place] [address] Color (U) yellow Normal Yellow [facility] Comment on above: Performed By: #### U AMRC #### [facility] [address] [place] [address] Crystals LM Nom (Urine sed) LEARNING SUPPORT TEACHER Normal [facility] Comment on above: Performed By: #### U AMRC #### [address] [place] [address] Crystals. LEARNING SUPPORT TEACHER Normal [facility] Comment on above: Performed By: #### U [facility] #### [address] [place] [address] Epithelial cells LM Ql (Urine sed) 7-15 Normal 0 - 6 [facility] Comment on above: Performed By: #### U AMRC #### [facility] [address] [place] [address] Glucose Ql (U) NORMAL Normal Negative [facility] Comment on above: Performed By: #### U AMRC #### [facility] [address] [place] [address] Hemoglobin Ql (U) 150 Abnormal Negative [facility] Comment on above: Performed By: #### U AMRC #### [address] [place] [address] Ketones Ql (U) Negative Normal Negative [facility] Comment on above: Performed By: #### U AMRC #### [facility] [address] [place] [address] Leukocytes Esterase 1+ Abnormal Negative [facility] Comment on above: Performed By: #### U AMRC #### [facility] [address] [place] [address] Mucus Ql (Urine sed) 4+ /lpf Normal [facility] Comment on above: Performed By: #### U AMRC #### [address] [place] [address] Nitrite Ql (U) Negative Normal Negative [facility] Comment on above: Performed By: #### U [facility]RC #### [address] [address] pH (U) 6 [pH] Normal [facility] Comment on above: Performed By: #### U AMRC #### [address] [address] Protein Ql (U) 15 Abnormal Negative [facility] Comment on above: Performed By: #### U AMRC #### [address] [place] [address] RBC 2-5 Normal 0 - 2 [facility] Comment on above: Performed By: #### U AMRC #### [address] [place] [address] Specific gravity (U) [Rel density] 1.020 Normal 1.015-1.025 [facility] Comment on above: Performed By: #### U AMRC #### [address] [address] Trichomonas LEARNING SUPPORT TEACHER Normal [facility] Comment on above: Performed By: #### U AMRC #### [facility] [address] [place] [address] Urobilinogen NORMAL Normal Normal-1.0 [facility] Comment on above: Performed By: #### U AMRC #### [facility] [address] [place] [address] WBC 5-10 Normal 0 - 6 [facility] Comment on above: Performed By: #### U AMRC #### [facility] [address] [place] [address] Yeast LEARNING SUPPORT TEACHER Normal [facility] Comment on above: Performed By: #### U AMRC #### [facility] [address] [place] [address] Other LEARNING SUPPORT TEACHER Normal [facility] Comment on above: Performed By: #### U AMRC #### [facility] [address] [place] [address] Urine appearance determinati onOrdered By: SIMBA ABRAHAM on 02-03-2025 Appearance (U) Appearance ur Clear [facility] Urine color determinationOrd ered By: SIMBA ABRAHAM on 02-03-2025 Color (U) Color ur Yellow [facility] Urine epithelial cells detec tionOrdered By: SIMBA ABRAHAM on 02-03-2025 Epithelial cells Ql (U) Urine epithelial cells detection 0 - 6 [facility] Urine glucose measurement by test strip (mass/volume)Ordered By: SIMBA ABRAHAM on 02-03-2025 Glucose Test strip (U) [Mass/Vol] Urine glucose measurement by test strip (mass/volume) Negative [facility] Urine leukocytes count (numb er/volume)Ordered By: SIMBA ABRAHAM on 02-03-2025 WBC (U) [#/Vol] Urine leukocytes cou nt (number/volume) 0 - 6 [facility] Urine total bilirubin detect ionOrdered By: SIMBA ABRAHAM on 02-03-2025 Bilirubin Ql (U) Urine total bilirubi n detection Negative [facility] Urine urobilinogen measureme ntOrdered By: SIMBA ABRAHAM on 02-03-2025 Urobilinogen Ql (U) Urine urobilinogen measurement Normal-1.0 [facility] Whole blood hemoglobin measu rement (mass/volume)Ordered By: SIMBA ABRAHAM on 02-03-2025 Hemoglobin (Bld) [Mass/Vol] Whole blood hemoglobin measurement (mass/volume) High 11.1-13.7 [facility] pH Test strip (U)Ordered By: SIMBA ABRAHAM on 02-03-2025 pH (U) Urine pH measurement by dipstick [facility] CBC + DIFFon 01-01-2025 Baso # 0.03 x10EE3/UL Normal 0.00 - 0.10 [facility] Comment on above: Performed By: #### 2 [id number] ####[facility],[address] [place], [place] [id number] Basophils/100 WBC (Bld) 0.5 % Normal 0.0 - 2.0 [facility] Comment on above: Performed By: #### 2 [address]2267 ####[facility],[address] [place] [address] CBC + DIFF Normal [facility] Comment on above: Result Comment: CBC- COMPLETE BLOOD COUNT Performed By: #### 2 [id number] ####[facility],[address] [place] [address] EO # 0.39 x10EE3/UL Normal 0.00 - 0.50 [facility] Comment on above: Performed By: #### 2 57067 ####[facility],[address] [place] [address] Eosinophils/100 WBC (Bld) 6.4 % Normal 0.0 - 7.0 [facility] Comment on above: Performed By: #### 2 81179 ####[facility],[address] [place] [address] Erythrocyte distribution width (RBC) [Ratio] 13.8 % Normal 12.0 - 15.6 [facility] Comment on above: Performed By: #### 2 78371 ####[facility],[address] [place] [address] Hematocrit (Bld) [Volume fraction] 44.4 % Normal 34.0 - 46.0 [facility] Comment on above: Performed By: #### 2 48431 ####[facility],[address] [place] [address] Hemoglobin (Bld) [Mass/Vol] 15.3 g/dL Normal 12.0 - 16.0 [facility] Comment on above: Performed By: #### 2 [address]2426 ####[facility],[address] [place], [place] [id number] Lymph # 0.93 x10EE3/UL Normal 0.80 - 2.80 [facility] Comment on above: Performed By: #### 2 58246 ####[facility],[address] [place] [address] Lymphocytes/100 WBC (Bld) 15.3 % Low 20.0 - 45.0 [facility] Comment on above: Performed By: #### 2 05725 ####[facility],[address] [place] [address] MANUAL DIFF N/A Normal [facility] Comment on above: Performed By: #### 2 02197 ####[facility],[address] [place] [address] MCH (RBC) [Entitic mass] 29 pg Normal 27 - 33 [facility] Comment on above: Performed By: #### 2 22206 ####[facility],[address] [place] [address] MCHC 34 X10 3 Normal 32 - 36 [facility] Comment on above: Performed By: #### 2 02264 ####[facility],[address] [place] [address] MCV (RBC) [Entitic vol] 85 fL Normal 80 - 99 [facility] Comment on above: Performed By: #### 2 04958 ####[facility],[address] [place] [address] Simpson # 0.43 x10EE3/UL Normal 0.20 - 1.00 [facility] Comment on above: Performed By: #### 2 82485 ####[facility],[address] [place] [address] MONOS % 7.0 % Normal 0.0 - 10.0 [facility] Comment on above: Performed By: #### 2 41182 ####[facility],[address] [place] [address] Morphology Kamlesh (Bld) [Interp] N/A Normal [facility] Comment on above: Performed By: #### 2 31750 ####[facility],[address] [place] [address] Neut # 4.33 x10EE3/UL Normal 1.50 - 7.10 [facility] Comment on above: Performed By: #### 2 20337 ####[facility],[address] [place] [address] Neutrophils/100 WBC (Bld) 70.9 % Normal 46.0 - 76.0 [facility] Comment on above: Performed By: #### 2 10470 ####[facility],[address] [place] [address] 46684 PLATELET 271 x10EE3/UL Normal 150 - 450 [facility] Comment on above: Performed By: #### 2 91359 ####[facility],[address] [place] [address] 74577 Platelet mean volume (Bld) [Entitic vol] 8.5 fL Normal 6.6 - 10.5 [facility] Comment on above: Result Comment: AUTO MATED DIFFERENTIAL Performed By: #### 2 30234 ####[facility],[address] [place] [address] 22310 RBC 5.21 x 10EE6/UL Normal 4.10 - 5.30 [facility] Comment on above: Performed By: #### 2 36109 ####[facility],[address] [place] [address] 96171 WBC 6.1 x 10EE3/UL Normal 4.5 - 10.8 [facility] Comment on above: Performed By: #### 2 68311 ####[facility],[address] [place] [address] 96807 CHEST 1 VIEWon 01-01-2025 CHEST 1 VIEW Normal [facility] CMP with eGFRon 01-01-2025 AGE 29 years Normal [facility] Comment on above: Performed By: #### 2 45168 ####[facility],[address] [place] [address] 08965 Albumin [Mass/Vol] 3.3 g/dL Low 3.4 - 5.0 [facility] Comment on above: Performed By: #### 2 37342 ####[facility],[address] [place] [address] 96712 Albumin/Globulin [Mass ratio] 0.9 {ratio} Normal 0.9 - 1.6 [facility] Comment on above: Performed By: #### 2 89486 ####[facility],[address] [place] [address] 91542 ALK PHOS 138 U/L High 46 - 116 [facility] Comment on above: Performed By: #### 2 14523 ####[facility],[address] [place] [address] 59604 ALT [Catalytic activity/Vol] 80 U/L High 16 - 63 [facility] Comment on above: Performed By: #### 2 12827 ####[facility],[address] [place] [address] 43960 Anion gap [Moles/Vol] 12 mmol/L Normal 10 - 20 [facility] Comment on above: Performed By: #### 2 45454 ####[facility],[address] [place] [address] 21361 AST [Catalytic activity/Vol] 31 U/L Normal 13 - 39 [facility] Comment on above: Performed By: #### 2 85027 ####[facility],[address] [place] [address] 64964 B/C RATIO 15 ratio Normal 0 - 30 [facility] Comment on above: Performed By: #### 2 95587 ####[facility],[address] [place] [address] 54944 Bilirubin [Mass/Vol] 0.4 mg/dL Normal 0.2 - 1.0 [facility] Comment on above: Performed By: #### 2 51984 ####[facility],[address] [place] [address] 93855 Calcium [Mass/Vol] 8.7 mg/dL Normal 8.5 - 10.1 [facility] Comment on above: Performed By: #### 2 45921 ####[facility],[address] [place] [address] 95097 Chloride [Moles/Vol] 105 mmol/L Normal 98 - 107 [facility] Comment on above: Performed By: #### 2 89237 ####[facility],[address] [place] [address] 18289 CMP with eGFR Normal [facility] Comment on above: Result Comment: COMP REHENSIVE METABOLIC PANEL Performed By: #### 2 03805 ####[facility],[address] [place] [address] 40684 CO2 [Moles/Vol] 24.6 mmol/L Normal 21.0 - 32.0 [facility] Comment on above: Performed By: #### 2 64474 ####[facility],[address] [place] [address] 98514 Creatinine [Mass/Vol] 0.72 mg/dL Normal 0.55 - 1.02 [facility] Comment on above: Performed By: #### 2 35200 ####[facility],[address] [place] [address] 81998 GFR/1.73 sq M.predicted among non-blacks MDRD (S/P/Bld) [Vol rate/Area] mL/min/{1.73_m2} Normal 60 - 999 [facility] Comment on above: Performed By: #### 2 85531 ####[facility],[address] [place] [address] Result Comment: ACCO RDING TO THE NATIONAL KIDNEY DISEASE EDUCATION PROGRAM(NKDE), A NORMAL eGFRIS A VALUE GREATER THAN OR EQUAL TO 60 ML/MIN/1.73 SQ METERS.CHRONIC KIDNEY DISEASE: <60mL/MIN/1.73 SQ METERSKIDNEY FAILURE: <15mL/MIN/1.73 SQ METERSTHIS TEST SHOULD ONLY BE USED FOR PATIENTS 18 YEARS OF AGE AND OLDER. Globulin (S) [Mass/Vol] 3.7 g/dL Normal 1.5 - 3.8 [facility] Comment on above: Performed By: #### 2 35578 ####[facility],[address] [place] [address] 33127 Glucose [Mass/Vol] 122 mg/dL High 74 - 106 [facility] Comment on above: Performed By: #### 2 34142 ####[facility],[address] [place] [address] 75853 Potassium [Moles/Vol] 3.4 mmol/L Low 3.5 - 5.1 [facility] Comment on above: Performed By: #### 2 91580 ####[facility],[address] [place] [address] 67389 Protein [Mass/Vol] 7.0 g/dL Normal 6.4 - 8.2 [facility] Comment on above: Performed By: #### 2 83889 ####[facility],[address] [place] [address] 85944 Sodium [Moles/Vol] 138 mmol/L Normal 136 - 145 [facility] Comment on above: Performed By: #### 2 20414 ####[facility],[address] [place] [address] 49531 Urea nitrogen [Mass/Vol] 11 mg/dL Normal 7 - 18 [facility] Comment on above: Performed By: #### 2 12401 ####[facility],[address] [place] [address] 17747 CORONAVIRUS (SARS) ANTIGEN T ESTon 01-01-2025 EXTERNAL QC DONE? YES Normal [facility] Comment on above: Performed By: #### 2 85933 ####[facility],[address] [place] [address] 14392 INTERNAL CONTROL PASS Normal [facility] Comment on above: Performed By: #### 2 07044 ####[facility],[address] [place] [address] 46988 SARS ANTIGEN Negative Normal NORMAL: NEGATIVE [facility] Comment on above: Performed By: #### 2 76755 ####[facility],[address] [place] [address] 61210 SEND TO ? NO Normal [facility] Comment on above: Result Comment: SARS -CoV-2THIS TEST IS BEING USED UNDER THE FDA EUA PROCEDURE. THIS ASSAY HAS BEENVALIDATED AT [facility] FOR USE WITH NASAL AND NASOPHARYNGEAL SWABSPECIMENS.INTERPRETIVE [...] BY HEALTHCARE PROVIDERS IN CONSULTATION WITH PUBLIC [facility]. Performed By: #### 2 96077 ####[place] [address] CT CHEST (PE PROTOCOL)on CT CHEST (PE PROTOCOL) Normal [facility] D-DIMER, QUANTITATIVEon 04-0 D-DIMER QUANT 253 ng/ml High 0 - 230 [facility] Comment on above: Performed By: #### 2 95323 ####[place] [id number] D-DIMER, QUANTITATIVE Normal [facility] Comment on above: Result Comment: TREMAYNE T D-DIMER Performed By: #### 2 96373 ####[place] [id number] ED MED ADMINISTRATION DETAIL on 01-01-2025 ED MED ADMINISTRATION DETAIL Normal [facility] ED NURSES CLINICAL NOTEon ED NURSES CLINICAL NOTE Normal [facility] ED ORDER SHEET (CPOE ONLY)on 01-01-2025 ED ORDER SHEET (CPOE ONLY) Normal [facility] ED PHYSICIAN CLINICAL REPORT on 01-01-2025 ED PHYSICIAN CLINICAL REPORT Normal [facility] ED PHYSICIAN DISCHARGE REPOR Ton 01-01-2025 ED PHYSICIAN DISCHARGE REPORT Normal [facility] ED SUPER BILLon 01-01-2025 ED SUPER BILL Normal [facility] ED VISIT SUMMARYon ED VISIT SUMMARY Normal [facility] ED VITALS FLOW SHEETon 01-01 ED VITALS FLOW SHEET Normal [facility] INFLUENZA VIRUS RAPID A/Bon 01-01-2025 INFLUENZA VIRUS RAPID A/B Normal [facility] Comment on above: Performed By: #### 2 76496 ####[facility],[address] [place] [address] NT-proBNPon 01-01-2025 Natriuretic peptide B (Bld) [Mass/Vol] 86 pg/mL Normal 0 - 125 [facility] Comment on above: Performed By: #### 2 48446 ####[facility],[address] [place] [address] SERUM QUALon 01-01 EXTERNAL QC DONE? YES Normal [facility] Comment on above: Performed By: #### 2 94980 ####[facility],[address] [place] [address] INTERNAL QC PASS Normal [facility] Comment on above: Performed By: #### 2 54764 ####[facility],[address] [place] [address] SER Negative Normal NEGATIVE [facility] Comment on above: Performed By: #### 2 07514 ####[facility],[address] [place] [address] TROPONINon 01-01-2025 HS TROPONIN 14.2 pg/mL Normal 0.0 - 51.4 [facility] Comment on above: Performed By: #### 2 67706 ####[facility],[address] [place] [address] HS TROPONIN 13.8 pg/mL Normal 0.0 - 51.4 [facility] Comment on above: Performed By: #### 2 62072 ####[facility],[address] [place] [address] ED MED ADMINISTRATION DETAIL on 12-31-2024 ED MED ADMINISTRATION DETAIL Normal [facility] ED NURSES CLINICAL NOTEon ED NURSES CLINICAL NOTE Normal [facility] ED ORDER SHEET (CPOE ONLY)on 12-31-2024 ED ORDER SHEET (CPOE ONLY) Normal [facility] ED PHYSICIAN CLINICAL REPORT on 12-31-2024 ED PHYSICIAN CLINICAL REPORT Normal [facility] ED PHYSICIAN DISCHARGE REPOR Ton 12-31-2024 ED PHYSICIAN DISCHARGE REPORT Normal [facility] ED SUPER BILLon 12-31-2024 ED SUPER BILL Normal [facility] ED VISIT SUMMARYon ED VISIT SUMMARY Normal [facility] ED VITALS FLOW SHEETon 12-31 ED VITALS FLOW SHEET Normal [facility] CBC + DIFFon 12-20-2024 Baso # 0.03 x10EE3/UL Normal 0.00 - 0.10 [facility] Comment on above: Performed By: #### 2 84652 ####[facility],[address] [place] [address] Basophils/100 WBC (Bld) 0.3 % Normal 0.0 - 2.0 [facility] Comment on above: Performed By: #### 2 71041 ####[facility],[address] [place] [address] CBC + DIFF Normal [facility] Comment on above: Result Comment: CBC- COMPLETE BLOOD COUNT Performed By: #### 2 41215 ####[facility],[address] [place] [address] EO # 0.42 x10EE3/UL Normal 0.00 - 0.50 [facility] Comment on above: Performed By: #### 2 73469 ####[facility],[address] [place] [address] 19329 Eosinophils/100 WBC (Bld) 3.7 % Normal 0.0 - 7.0 [facility] Comment on above: Performed By: #### 2 90350 ####[facility],[address] [place] [address] Erythrocyte distribution width (RBC) [Ratio] 13.4 % Normal 12.0 - 15.6 [facility] Comment on above: Performed By: #### 2 85698 ####[facility],[address] [place] [address] Hematocrit (Bld) [Volume fraction] 41.7 % Normal 34.0 - 46.0 [facility] Comment on above: Performed By: #### 2 75483 ####[place] [address] Hemoglobin (Bld) [Mass/Vol] 14.5 g/dL Normal 12.0 - 16.0 [facility] Comment on above: Performed By: #### 2 16855 ####[facility],[address] [place], [place] [address] Lymph # 3.09 x10EE3/UL High 0.80 - 2.80 [facility] Comment on above: Performed By: #### 2 94313 ####[facility],[address] [place], [place] [address] Lymphocytes/100 WBC (Bld) 27.3 % Normal 20.0 - 45.0 [facility] Comment on above: Performed By: #### 2 13774 ####[address] [address] MANUAL DIFF N/A Normal [facility] Comment on above: Performed By: #### 2 59109 ####[address] [address] MCH (RBC) [Entitic mass] 30 pg Normal 27 - 33 [facility] Comment on above: Performed By: #### 2 32171 ####[facility],[address] [place] [address] 22571 MCHC 35 X10 3 Normal 32 - 36 [facility] Comment on above: Performed By: #### 2 62927 ####[facility],[address] [place] [address] 51084 MCV (RBC) [Entitic vol] 86 fL Normal 80 - 99 [facility] Comment on above: Performed By: #### 2 67651 ####[facility],[address] [place] [address] 67790 Simpson # 0.63 x10EE3/UL Normal 0.20 - 1.00 [facility] Comment on above: Performed By: #### 2 33068 ####[facility],[address] [place] [address] 88729 MONOS % 5.6 % Normal 0.0 - 10.0 [facility] Comment on above: Performed By: #### 2 03284 ####[facility],[address] [place] [address] 59515 Morphology Kamlesh (Bld) [Interp] N/A Normal [facility] Comment on above: Performed By: #### 2 78752 ####[facility],[address] [place] [address] 00157 Neut # 7.13 x10EE3/UL High 1.50 - 7.10 [facility] Comment on above: Performed By: #### 2 11018 ####[facility],[address] [place] [address] 92833 Neutrophils/100 WBC (Bld) 63.1 % Normal 46.0 - 76.0 [facility] Comment on above: Performed By: #### 2 10034 ####[facility],[address] [place] [address] 61902 PLATELET 350 x10EE3/UL Normal 150 - 450 [facility] Comment on above: Performed By: #### 2 32756 ####[facility],[address] [place] [address] 59102 Platelet mean volume (Bld) [Entitic vol] 8.0 fL Normal 6.6 - 10.5 [facility] Comment on above: Result Comment: AUTO MATED DIFFERENTIAL Performed By: #### 2 75938 ####[facility],[address] [place] [address] 99379 RBC 4.86 x 10EE6/UL Normal 4.10 - 5.30 [facility] Comment on above: Performed By: #### 2 68128 ####[facility],[address] [place] [address] 83070 WBC 11.3 x 10EE3/UL High 4.5 - 10.8 [facility] Comment on above: Performed By: #### 2 41392 ####[facility],[address] [place], [place] [address] CHEST 2 VIEWSon 12-20-2024 CHEST 2 VIEWS Normal [facility] CMP with eGFRon 12-20-2024 AGE 29 years Normal [facility] Comment on above: Performed By: #### 2 74982 ####[facility],[address] [place] [address] 24965 Albumin [Mass/Vol] 3.5 g/dL Normal 3.4 - 5.0 [facility] Comment on above: Performed By: #### 2 91657 ####[facility],[address] [place] [address] 60568 Albumin/Globulin [Mass ratio] 0.9 {ratio} Normal 0.9 - 1.6 [facility] Comment on above: Performed By: #### 2 53483 ####[facility],[address] [place] [address] 27201 ALK PHOS 122 U/L High 46 - 116 [facility] Comment on above: Performed By: #### 2 88499 ####[facility],[address] [place] [address] 51413 ALT [Catalytic activity/Vol] 47 U/L Normal 16 - 63 [facility] Comment on above: Performed By: #### 2 85642 ####[facility],[address] [place] [address] 85156 Anion gap [Moles/Vol] 9 mmol/L Low 10 - 20 [facility] Comment on above: Performed By: #### 2 65453 ####[facility],[address] [place] [address] 47207 AST [Catalytic activity/Vol] 16 U/L Normal 13 - 39 [facility] Comment on above: Performed By: #### 2 85259 ####[facility],[address] [place] [address] 68726 B/C RATIO 16 ratio Normal 0 - 30 [facility] Comment on above: Performed By: #### 2 73990 ####[facility],[address] [place] [address] 32832 Bilirubin [Mass/Vol] 0.1 mg/dL Low 0.2 - 1.0 [facility] Comment on above: Performed By: #### 2 48738 ####[facility],[address] [place] [address] 91801 Calcium [Mass/Vol] 8.7 mg/dL Normal 8.5 - 10.1 [facility] Comment on above: Performed By: #### 2 98501 ####[facility],[address] [place] [address] 17546 Chloride [Moles/Vol] 104 mmol/L Normal 98 - 107 [facility] Comment on above: Performed By: #### 2 94093 ####[facility],[address] [place] [address] 33115 CMP with eGFR Normal [facility] Comment on above: Result Comment: COMP REHENSIVE METABOLIC PANEL Performed By: #### 2 10974 ####[facility],[address] [place] [address] 17689 CO2 [Moles/Vol] 29.6 mmol/L Normal 21.0 - 32.0 [facility] Comment on above: Performed By: #### 2 67131 ####[facility],[address] [place] [address] 92370 Creatinine [Mass/Vol] 0.86 mg/dL Normal 0.55 - 1.02 [facility] Comment on above: Performed By: #### 2 37589 ####[facility],[address] [place] [address] 69786 GFR/1.73 sq M.predicted among non-blacks MDRD (S/P/Bld) [Vol rate/Area] mL/min/{1.73_m2} Normal 60 - 999 [facility] Comment on above: Performed By: #### 2 87658 ####[facility],[address] [place] [address] 92243 Result Comment: ACCO RDING TO THE NATIONAL KIDNEY DISEASE EDUCATION PROGRAM(NKDE), A NORMAL eGFRIS A VALUE GREATER THAN OR EQUAL TO 60 ML/MIN/1.73 SQ METERS.CHRONIC KIDNEY DISEASE: <60mL/MIN/1.73 SQ METERSKIDNEY FAILURE: <15mL/MIN/1.73 SQ METERSTHIS TEST SHOULD ONLY BE USED FOR PATIENTS 18 YEARS OF AGE AND OLDER. Globulin (S) [Mass/Vol] 3.7 g/dL Normal 1.5 - 3.8 [facility] Comment on above: Performed By: #### 2 02727 ####[facility],[address] [place] [address] 10198 Glucose [Mass/Vol] 92 mg/dL Normal 74 - 106 [facility] Comment on above: Performed By: #### 2 63450 ####[facility],[address] [place] [address] 68255 Potassium [Moles/Vol] 3.3 mmol/L Low 3.5 - 5.1 [facility] Comment on above: Performed By: #### 2 89756 ####[facility],[address] [place] [address] 25903 Protein [Mass/Vol] 7.2 g/dL Normal 6.4 - 8.2 [facility] Comment on above: Performed By: #### 2 50752 ####[facility],[address] [place] [address] 00888 Sodium [Moles/Vol] 139 mmol/L Normal 136 - 145 [facility] Comment on above: Performed By: #### 2 59077 ####[facility],[address] [place] [address] 78952 Urea nitrogen [Mass/Vol] 14 mg/dL Normal 7 - 18 [facility] Comment on above: Performed By: #### 2 49064 ####[facility],[address] [place] [address] 42908 CORONAVIRUS (SARS) ANTIGEN T ESTon 12-20-2024 EXTERNAL QC DONE? YES Normal [facility] Comment on above: Performed By: #### 2 14126 ####[facility],[address] [place] [address] 36643 INTERNAL CONTROL PASS Normal [facility] Comment on above: Performed By: #### 2 72092 ####[facility],[address] [place] [address] 48449 SARS ANTIGEN Negative Normal NORMAL: NEGATIVE [facility] Comment on above: Performed By: #### 2 06808 ####[facility],[address] [place] [address] 56603 SEND TO ? NO Normal [facility] Comment on above: Result Comment: SARS -CoV-2THIS TEST IS BEING USED UNDER THE FDA EUA PROCEDURE. THIS ASSAY HAS BEENVALIDATED AT [facility] FOR USE WITH NASAL AND NASOPHARYNGEAL SWABSPECIMENS.INTERPRETIVE [...] BY HEALTHCARE PROVIDERS IN CONSULTATION WITH PUBLIC [facility]. Performed By: #### 2 50225 ####[place] [address] [address] ABDOMEN/PELVIS WOon 12-20 CT ABDOMEN/PELVIS WO Normal [facility] D-DIMER, QUANTITATIVEon 12-02 0-2024 D-DIMER QUANT <200 Normal 0 - 230 [facility] Comment on above: Performed By: #### 2 07667 ####[place] [address] D-DIMER, QUANTITATIVE Normal [facility] Comment on above: Result Comment: TREMAYNE T D-DIMER Performed By: #### 2 84074 ####[place] [address] INFLUENZA VIRUS RAPID A/Bon 12-20-2024 INFLUENZA VIRUS RAPID A/B Normal [facility] Comment on above: Performed By: #### 2 77575 ####[facility],[address] [place] [address] LIPASEon 12-20-2024 Lipase [Catalytic activity/Vol] 48.0 U/L Normal 15.0 - 78.0 [facility] Comment on above: Result Comment: *PLE ASE NOTE THAT RANGES FOR LIPASE HAVE CHANGED OF 09/30/23 DUE TO AN ASSAYUPDATE BY THE LIME HIDE INSPECTOR.THE NEW ASSAY RANGE IS 6-250 U/L, WITH A REFERENCERANGE OF 16-77 U/L. Performed By: #### 2 51877 ####[facility],[address] [place] [address] URINEon 12-20-2024 Beta HCG ( test) Ql (U) Negative Normal NEGATIVE [facility] Comment on above: Performed By: #### 2 47609 ####[place] [address] EXTERNAL QC DONE? YES Normal [facility] Comment on above: Result Comment: Very dilute urine specimens, as indicated by a low specific gravity, may notcontain sales representative metals levels of hCG. If is still suspected, a firstmorning urine specimen should be collected 48 hours later and tested. Performed By: #### 2 08797 ####[place] [address] INTERNAL QC PASS Normal [facility] Comment on above: Performed By: #### 2 09251 ####[place] [address] TROPONINon 12-20-2024 HS TROPONIN 15.0 pg/mL Normal 0.0 - 51.4 [facility] Comment on above: Performed By: #### 2 58778 ####[place] [address] URINALYSISon 12-20-2024 Amorphous 1+ Normal [facility] Comment on above: Performed By: #### 2 45091 ####[facility],[address] [place] [address] 15264 Bacteria TRACE Normal [facility] Comment on above: Performed By: #### 2 44891 ####[facility],[address] [place] [address] 75162 Bilirubin Ql (U) Negative Normal NORMAL: NEGATIVE [facility] Comment on above: Performed By: #### 2 24197 ####[facility],[address] [place] [address] 59691 Casts NONE Normal [facility] Comment on above: Performed By: #### 2 42423 ####[facility],[address] [place] [address] 65980 Clarity (U) sl.cloudy Normal NORMAL: CLEAR [facility] Comment on above: Performed By: #### 2 21692 ####[facility],[address] [place] [address] 56576 Color (U) yellow Normal NORMAL: YELLOW [facility] Comment on above: Performed By: #### 2 77238 ####[facility],[address] [place] [address] 38527 Crystals LM Nom (Urine sed) NONE Normal [facility] Comment on above: Performed By: #### 2 02635 ####[facility],[address] [place] [address] 48004 Epi Cells MODERATE Normal [facility] Comment on above: Performed By: #### 2 27740 ####[facility],[address] [place] [address] 53986 Glucose Ql (U) NORM Normal NORMAL: NORMAL [facility] Comment on above: Performed By: #### 2 30647 ####[facility],[address] [place] [address] 52235 Hemoglobin Ql (U) 150 Abnormal NORMAL: NEGATIVE [facility] Comment on above: Performed By: #### 2 44034 ####[facility],[address] [place] [address],[facility] [address]46 Ketone Negative Normal NORMAL: NEGATIVE [facility] Comment on above: Performed By: #### 2 01871 ####[facility],[address] [place] [address],[facility] 83753 Leukocytes Negative Normal NORMAL: NEGATIVE [facility] Comment on above: Performed By: #### 2 14538 ####[facility],[address] [place], [place] [address] Mucous 3+ Normal [facility] Comment on above: Performed By: #### 2 61121 ####[facility],[address] [place] [address] 81592 Nitrite Ql (U) Negative Normal NORMAL: NEGATIVE [facility] Comment on above: Performed By: #### 2 75854 ####[facility],[address] [place] [address] pH (U) 6 [pH] Normal NORMAL: 5.0-8.0 [facility] Comment on above: Performed By: #### 2 03868 ####[facility],[address] [place], [place] [address] Protein Ql (U) 30 Abnormal NORMAL: NEGATIVE [facility] Comment on above: Performed By: #### 2 37347 ####[facility],[address] [place], [place] [address] Rbc 0-5 Normal 0-3/hpf [facility] Comment on above: Performed By: #### 2 65029 ####[facility],[address] [place], [place] [address] Sp Tatum 1.020 Normal NORMAL: 1.010-1.030 [facility] Comment on above: Performed By: #### 2 52883 ####[facility],[address] [place], [place] [address] Specimen Type R Normal [facility] Comment on above: Performed By: #### 2 16438 ####[facility],[address] [place] [address] 82908 Urinalysis dipstick W Reflex Microscopic panel (U) SEE BELOW Normal [facility] Comment on above: Result Comment: MICR OSCOPIC Performed By: #### 2 30362 ####[facility],[address] [place] [address] 97257 Urobilinog NORM Normal NORMAL: NORMAL [facility] Comment on above: Performed By: #### 2 73547 ####[facility],[address] [place] [address] 52815 Wbc 1-5 Normal 0-5/hpf [facility] Comment on above: Performed By: #### 2 38193 ####[facility],[address] [place] [address] 92014 Yeast NONE Normal [facility] Comment on above: Performed By: #### 2 26364 ####[facility],[address] [place] [address] 54235 EMERGENCY DEPARTMENTon 12-14 [place] [address] HEALTH INFORMATION MANAGEMENT EMERGENCY DEPARTMENT : [phone] Signed Patient: JESSICA ACUNA Acct:[id number] MRUN : [id number] : 1995 Sex: F Loc: ED ADM [...] Feels Threatened In a Relationship: No - [place]/Gender ID What is your current Gender Identity? [...] edema, tenderness (more content not included)... Normal [facility] Absolute immature granulocyt e countOrdered By: VIET MARIA on 12-13-2024 Immature granulocytes (Bld) [#/Vol] Absolute immature granulocyte count 0.00-1.00 [facility] Absolute lymphocyte countOrd ered By: VIET MARIA on 12-13-2024 Lymphocytes Auto (Unsp spec) [#/Vol] Absolute lymphocyte count 1.30-2.90 [facility] Bacteria detection in urine sediment by light microscopyOrdered By: VIET MARIA on 12-13-2024 Bacteria LM Ql (Urine sed) Bacteria detection in urine sediment by light microscopy 0 - 1+ [facility] [facility] Auto (Bld) [#/Vol] Ordered By: VIET MARIA on 12-13-2024 Basophils (Bld) [#/Vol] Automated blood basophil count (number/volume) 0.00-0.10 [facility] Blood absolute eosinophil co untOrdered By: VIET MARIA on 12-13-2024 Eosinophils (Bld) [#/Vol] Blood absolute eosinophil count High 0.00-0.20 [facility] Blood basophils/100 leukocyt esOrdered By: VIET MARIA on 12-13-2024 Basophils/100 WBC (Bld) Blood basophils/ 100 leukocytes 0.2-1.0 [facility] Blood erythrocytes count (nu mber/volume)Ordered By: VIET MARIA on 12-13-2024 RBC (Bld) [#/Vol] Blood erythrocyte count High 3.83- 5.19 [facility] Blood hematocrit (volume fra ction)Ordered By: VIET MARIA on 12-13-2024 Hematocrit (Bld) [Volume fraction] Blood hematocrit (volume fraction) 33.4-46.0 [facility] Blood leukocytes count (numb er/volume)Ordered By: VIET MARIA on 12-13-2024 WBC (Bld) [#/Vol] Blood leukocytes cou nt (number/volume) 3.6-10.8 [facility] Blood platelet mean volumeOr dered By: VIET MARIA on 12-13-2024 Platelet mean volume (Bld) [Entitic vol] Blood platelet mean volume 7.4-10.4 [facility] CBC w/Auto Differentialon Basophils Abs. # 0.06 K/uL Normal 0.00-0.10 [facility] Comment on above: Performed By: #### C BCS #### [facility] [address] [place] [address] Basophils/100 WBC (Bld) 0.6 % Normal 0.2-1.0 [facility] Comment on above: Performed By: #### C BCS #### [id number] [place] [address] Eosinophils (Bld) [#/Vol] 0.30 10*3/uL High 0.00-0.20 [facility] Comment on above: Performed By: #### C BCS #### [id number] [place] [address] Eosinophils/100 WBC (Bld) 2.6 % Normal 0.9-2.9 [facility] Comment on above: Performed By: #### C BCS #### [address] [address] Erythrocyte distribution width (RBC) [Ratio] 12.8 % Normal 11.5-14.5 [facility] Comment on above: Performed By: #### C BCS #### [id number] [place] [address] Hematocrit (Bld) [Volume fraction] 45.4 % Normal 33.4-46.0 [facility] Comment on above: Performed By: #### C BCS #### [address] [address] Hemoglobin (Bld) [Mass/Vol] 15.4 g/dL High 11.1-13.7 [facility] Comment on above: Performed By: #### C BCS #### [id number] [place] [address] Imm Grans % 0.10 % Normal 0.00-1.00 [facility] Comment on above: Performed By: #### C BCS #### [facility] [address] [place] [address] Imm Grans Absolute # 0.01 K/uL Normal 0.00-0.10 [facility] Comment on above: Performed By: #### C BCS #### [id number] [place] [address] Lymphocytes (Bld) [#/Vol] 2.60 10*3/uL Normal 1.30-2.90 [facility] Comment on above: Performed By: #### C BCS #### [id number] [place] [address] Lymphocytes/100 WBC (Bld) 24.4 % Normal 17.0-45.5 [facility] Comment on above: Performed By: #### C BCS #### [id number] [place] [address] MCH (RBC) [Entitic mass] 29.6 pg Normal 27.0-31.0 [facility] Comment on above: Performed By: #### C BCS #### [id number] [place] [address] MCHC (RBC) [Mass/Vol] 33.9 g/dL Normal 33.0-37.0 [facility] Comment on above: Performed By: #### C BCS #### [id number] [place] [address] MCV (RBC) [Entitic vol] 87.3 fL Normal 81.0-99.0 [facility] Comment on above: Performed By: #### C BCS #### [id number] [place] [address] Monocytes (Bld) [#/Vol] 0.70 10*3/uL Normal 0.30-0.80 [facility] Comment on above: Performed By: #### C BCS #### [facility] [address] [place] [address] Monocytes/100 WBC (Bld) 6.4 % Normal 5.5-11.7 [facility] Comment on above: Performed By: #### C BCS #### [id number] [place] [address] Neutrophils Abs. # 7.12 K/uL High 2.20-4.80 [facility] Comment on above: Performed By: #### C BCS #### [id number] [place] [address] Neutrophils/100 WBC (Bld) 65.9 % High 43.0-65.0 [facility] Comment on above: Performed By: #### C BCS #### [id number] [place] [address] Platelet mean volume (Bld) [Entitic vol] 10.2 fL Normal 7.4-10.4 [facility] Comment on above: Performed By: #### C BCS #### [id number] [place] [address] Platelets (Bld) [#/Vol] 278 10*3/uL Normal 148-402 [facility] Comment on above: Performed By: #### C BCS #### [address] [place] [address] RBC (Bld) [#/Vol] 5.20 10*6/uL High 3.83-5.19 [facility] Comment on above: Performed By: #### C BCS #### [address] [place] [address] WBC (Bld) [#/Vol] 10.8 10*3/uL Normal 3.6-10.8 [facility] Comment on above: Performed By: #### C [facility] #### [id number] [place] [address] CT ABD/PELVIS W/Oon 12-14-19 CT ABD/PELVIS W/O EXAMINATION: CT OF THE [...] 3.5 cm. No follow-up imaging recommended. Normal [facility] Calcium measurement (mass fr action)Ordered By: VIET MARIA on 12-13-2024 Calcium (Unsp spec) [Mass fraction] Calcium measurement (mass fraction) 8.2-10.0 [facility] Comprehensive Metabolic Pane ronen 12-13-2024 Albumin [Mass/Vol] 3.5 g/dL Normal 3.4-5.0 [facility] Comment on above: Performed By: #### C MP #### [id number] [place] [address] Albumin/Globulin [Mass ratio] 0.9 {ratio} Low 1.1-2.5 [facility] Comment on above: Performed By: #### C MP #### [id number] [place] [address] ALP [Catalytic activity/Vol] 110 U/L Normal 54-112 [facility] Comment on above: Performed By: #### C MP #### [facility] [address] [place] [address] ALT [Catalytic activity/Vol] 36 U/L Normal 13-66 [facility] Comment on above: Performed By: #### C MP #### [address] [place] [address] Anion gap [Moles/Vol] 9.6 mmol/L Normal 8.0-16.0 [facility] Comment on above: Performed By: #### C MP #### [id number] [place] [address] AST [Catalytic activity/Vol] 15 U/L Normal 3-39 [facility] Comment on above: Performed By: #### C MP #### [facility] [address] [place] [address] Bilirubin [Mass/Vol] 0.30 mg/dL Normal 0.00-0.99 [facility] Comment on above: Performed By: #### C MP #### [address] [place] [address] Calcium [Mass/Vol] 8.9 mg/dL Normal 8.2-10.0 [facility] Comment on above: Performed By: #### C MP #### [address] [place] [address] Chloride [Moles/Vol] 99 mmol/L Normal 94-110 [facility] Comment on above: Performed By: #### C MP #### [address] [place] [address] CO2 [Moles/Vol] 31 mmol/L Normal 21-34 [facility] Comment on above: Performed By: #### C MP #### [address] [place] [address] Creatinine [Mass/Vol] 0.85 mg/dL Normal 0.51-0.95 [facility] Comment on above: Performed By: #### C MP #### [address] [place] [address] EGFR Other Races >60 Normal >60 [facility] Comment on above: Performed By: #### C MP #### [address] [place] [address] GFR/1.73 sq M.predicted among blacks MDRD (S/P/Bld) [Vol rate/Area] mL/min/{1.73_m2} Normal >60 [facility] Comment on above: Result Comment: Drafter (Cad) Electronic paula Kidney Disease less than 60 mL/min/1.73 m2 Kidney Failure less than 15 mL/min/1.73 m2 Average estimated GFR by age: 30-39 years 107 mL/min/1.73 m2 Performed By: #### C MP #### [facility] [address] [place] [address] Globulin (S) [Mass/Vol] 3.9 g/dL Normal 1.5-4.5 [facility] Comment on above: Performed By: #### C MP #### [facility] [address] [place] [address] Glucose [Mass/Vol] 89 mg/dL Normal 65-100 [facility] Comment on above: Performed By: #### C MP #### [facility] [address] [place] [address] Potassium [Moles/Vol] 3.6 mmol/L Normal 3.3-5.1 [facility] Comment on above: Performed By: #### C MP #### [address] [place] [address] Protein [Mass/Vol] 7.4 g/dL Normal 6.1-8.2 [facility] Comment on above: Performed By: #### C MP #### [facility] [address] [place] [address] Sodium [Moles/Vol] 136 mmol/L Normal 132-145 [facility] Comment on above: Performed By: #### C MP #### [id number] [place] [address] Urea nitrogen [Mass/Vol] 16.3 mg/dL Normal 3.2-26.9 [facility] Comment on above: Performed By: #### C MP #### [facility] [address] [place] [address] Urea nitrogen/Creatinine [Mass ratio] 19 mg/mg Normal 6-20 [facility] Comment on above: Performed By: #### C MP #### [address] [address] Determination of erythrocyte mean corpuscular volume (MCV)Ordered By: VIET MARIA on 12-13-2024 MCV (RBC) [Entitic vol] Determination of erythrocyte mean corpuscular volume (MCV) 81.0-99.0 [facility] Eosinophil count as percenta ge of total leukocytesOrdered By: VIET MARIA on 12-13-2024 Eosinophils/100 WBC (Unsp spec) Eosinophil count as percentage of total leukocytes 0.9-2.9 [facility] Erythrocyte distribution wid th standard deviationOrdered By: VIET MARIA on 12-13-2024 Erythrocyte distribution width (RBC) [Entitic vol] Erythrocyte distribution width standard deviation 11.5-14.5 [facility] Glomerular filtration rate ( GFR) estimation/1.73 sq m using serum, plasma, or whole bOrdered By: VIET MARIA on 12-13-2024 GFR/1.73 sq M.predicted among blacks CKD-EPI (S/P/Bld) [Vol rate/Area] Glomerular filtration rate (GFR) estimation/1.73 sq m using serum, plasma, or whole b >60 [facility] Comment on above: Chronic Kidney Disea se less than 60 mL/min/1.73 h6Fcelsd Failure less than 15 mL/min/1.73 [id number] estimated GFR by age:30-39 years 107 mL/min/1.73 m2 GFR/1.73 sq M.predicted among non-blacks CKD-EPI (S/P/Bld) [Vol rate/Area] Glomerular filtration rate (GFR) estimation/1.73 sq m using serum, plasma, or whole b >60 [facility] HCG Quanton 12-13-2024 HCG Quant 1 mIU/mL Normal [facility] Comment on above: Result Comment: Expe cted values for Quantitative HCG Assay: Years Range Male 19-83 0-2 mIU/mL Non- female 22-87 0-6 mIU/mL Maxium level of 5,000 to 200,000 mIU/mL is reached at 10-12wks. Levels decline slowly to 1,000-50,000 during 3rd trimester.wks. Please note reference range change Effective: 10-18-03 Performed By: #### H CGQ #### [facility] [address] [place] [address] High Sensitivity TNIon 12-13 Abs Change hsTnI 2 ng/L Normal [facility] Comment on above: Performed By: #### H STNI #### [facility] [address] [place] [address] Delta % hsTnI 15 % Normal [facility] Comment on above: Performed By: #### H STNI #### [facility] [address] [place] [address] High Sensitivity TNI 13 ng/L Normal 0-51 [facility] Comment on above: Result Comment: Inte rpretation comment: High-sensitivity troponin I (hsTnI) assay can reliably detect low troponin concentrations relative to conventional troponin assays. It is the preferred marker of myocardial necrosis as recommended by the Fourth [place] Definition of Myocardial Infarction Guidelines. The diagnosis [...] significant. Performed By: #### H STNI #### [address] [address] High Sensitivity TNI 15 ng/L Normal 0-51 [facility] Comment on above: Result Comment: Inte rpretation comment: High-sensitivity troponin I (hsTnI) assay can reliably detect low troponin concentrations relative to conventional troponin assays. It is the preferred marker of myocardial necrosis as recommended by the Fourth [place] Definition of Myocardial Infarction Guidelines. The diagnosis [...] significant. Performed By: #### H STNI #### [address] [place] [address] Interpretation of serum or p lasma cardiac troponin I measurement by high sensitivityOrdered By: VIET MARIA on 12-13-2024 Troponin I.cardiac High sensitivity method Ql [Interp] Interpretation of serum or plasma cardiac troponin I measurement by high sensitivity 0-51 [facility] Comment on above: Interpretation comme nt:High-sensitivity [...] ketones detect ion by test strip Negative [facility] Leukocyte esterase ur dipsti ckOrdered By: VIET MARIA on 12-13-2024 Leukocyte esterase Test strip Ql (U) Urine leukocyte esterase detection by dipstick Negative [facility] Lipaseon 12-13-2024 Lipase [Catalytic activity/Vol] 55 U/L Low 65-230 [facility] Comment on above: Performed By: #### L IPAS #### [id number] [place] [address] Lipase ser/plasOrdered By: Subha MARIA on 12-13-2024 Lipase [Catalytic activity/Vol] Lipase ser/plas Low 65-230 [facility] Lymphocytes/100 WBC Auto (Bl d)Ordered By: VIET MARIA on 12-13-2024 Lymphocytes/100 WBC (Bld) Automated blood lymphocyte count as percentage of total leukocytes 17.0-45.5 [facility] MCH Auto (RBC) [Entitic mass ]Ordered By: VIET MARIA on 12-13-2024 MCH (RBC) [Entitic mass] Automated erythrocyte mean corpuscular hemoglobin (MCH) measurement (mass/erythrocyte 27.0-31.0 [facility] MCHC Auto (RBC) [Mass/Vol]Or dered By: VIET MARIA on 12-13-2024 MCHC (RBC) [Mass/Vol] Automated erythroc yte mean corpuscular hemoglobin concentration (MCHC) measurement (m 33.0-37.0 [facility] Monocytes Auto (Bld) [#/Vol] Ordered By: VIET MARIA on 12-13-2024 Monocytes (Bld) [#/Vol] Automated blood monocyte count (number/volume) 0.30-0.80 [facility] Monocytes/100 WBC Auto (Bld) Ordered By: VIET MARIA on 12-13-2024 Monocytes/100 WBC (Bld) Automated blood monocyte count as percentage of total leukocytes 5.5-11.7 [facility] Neutrophils Auto (Bld) [#/Vo l]Ordered By: VEIT MARIA on 12-13-2024 Neutrophils (Bld) [#/Vol] Automated blood neutrophil count (number/volume) High 2.20-4.80 [facility] Neutrophils seg % bldOrdered By: VIET MARIA on 12-13-2024 Segmented neutrophils/100 WBC (Bld) Neutrophils seg % bld High 43.0-65.0 [facility] Nitrite Test strip Ql (U)Ord ered By: VIET MARIA on 12-13-2024 Nitrite Ql (U) Nitrite ur dipstick Negative C [facility] Platelets Auto (Bld) [#/Vol] Ordered By: VIET MARIA on 12-13-2024 Platelets (Bld) [#/Vol] Automated blood platelet count (number/volume) 148-402 [facility] Potassium (Bld) [Moles/Vol]O rdered By: VIET MARIA on 12-13-2024 Potassium [Moles/Vol] Potassium [Moles/v olume] in Blood 3.3-5.1 [facility] Protein total ser/plasOrdere d By: VIET MARIA on 12-13-2024 Protein [Mass/Vol] Blood total protein measurement 6.1-8.2 [facility] Protein ur QLOrdered By: OKSANA MARIA on 12-13-2024 Protein Ql (U) Protein ur QL Abnormal Negative [facility] RBC LM Ql (Urine sed)Ordered By: VIET MARIA on 12-13-2024 RBC Ql (U) Erythrocytes detecti on in urine sediment by light microscopy 0 - 2 [facility] RBC Test strip (U) [#/Vol]Or dered By: VIET MARIA on 12-13-2024 RBC (U) [#/Vol] Urine erythrocytes c ount by test strip (number/volume) Abnormal Negative [facility] Serum globulin measurement ( mass/volume)Ordered By: VIET MARIA on 12-13-2024 Globulin (S) [Mass/Vol] Serum globulin measurement (mass/volume) 1.5-4.5 [facility] Serum or plasma alanine lynch otransferase (ALT) measurementOrdered By: VIET MARIA on 12-13-2024 ALT [Catalytic activity/Vol] ALT (SGPT) ser/plas 13-66 [facility] Serum or plasma albumin elizabeth urement by bromocresol purple (BCP) dye binding method (mOrdered By: VIET MARIA on 12-13-2024 Albumin BCP dye [Mass/Vol] Serum or plasma albumin measurement by bromocresol purple (BCP) dye binding method (m 3.4-5.0 [facility] Serum or plasma albumin/glob ulin mass ratioOrdered By: VIET MARIA on 12-13-2024 Albumin/Globulin [Mass ratio] Serum or plasma albumin/globulin mass ratio Low 1.1-2.5 [facility] Serum or plasma alkaline abilio sphatase measurement (enzymatic activity/volume)Ordered By: VIET MARIA on 12-13-2024 ALP [Catalytic activity/Vol] Serum or plasma alkaline phosphatase measurement (enzymatic activity/volume) 54-112 [facility] Serum or plasma anion gapOrd ered By: VIET MARIA on 12-13-2024 Anion gap [Moles/Vol] Serum or plasma an ion gap 8.0-16.0 [facility] Serum or plasma aspartate am inotransferase measurement with P-5'-P (enzymatic activitOrdered By: VIET MARIA on 12-13-2024 AST With P-5'-P [Catalytic activity/Vol] Serum or plasma aspartate aminotransferase measurement with P-5'-P (enzymatic activit 3-39 [facility] Serum or plasma bilirubin me asurement (mass/volume)Ordered By: VIET MARIA on 12-13-2024 Bilirubin [Mass/Vol] Serum or plasma bilirubin measurement (mass/volume) 0.00-0.99 [facility] Serum or plasma carbon dioxi de measurement (moles/volume)Ordered By: VIET MARIA on 12-13-2024 CO2 [Moles/Vol] Serum or plasma carb on dioxide measurement (moles/volume) 21-34 [facility] Serum or plasma chloride ginger surement (moles/volume)Ordered By: VIET MARIA on 12-13-2024 Chloride [Moles/Vol] Serum or plasma chl oride measurement (moles/volume) 94-110 [facility] Serum or plasma creatinine m easurement (mass/volume)Ordered By: VIET MARIA on 12-13-2024 Creatinine [Mass/Vol] Serum or plasma creatinine measurement (mass/volume) 0.51-0.95 [facility] Serum or plasma glucose elizabeth urement (mass/volume)Ordered By: VIET MARIA on 12-13-2024 Glucose [Mass/Vol] Serum or plasma gluc ose measurement (mass/volume) 65-100 [facility] Serum or plasma human chorio palua gonadotropin (hCG) measurement (units/volume)Ordered By: VIET MARIA on 12-13-2024 HCG Qn Serum or plasma silke n chorionic gonadotropin (hCG) measurement (units/volume) [facility] Comment on above: Expected values for [...] or plasma sodi um measurement (moles/volume) 132-145 [facility] Serum or plasma urea nitroge n measurement (mass/volume)Ordered By: VIET MARIA on 12-13-2024 Urea nitrogen [Mass/Vol] Serum or plasma urea nitrogen measurement (mass/volume) 3.2-26.9 [facility] Serum or plasma urea nitroge n/creatinine mass ratioOrdered By: VIET MARIA on 12-13-2024 Urea nitrogen/Creatinine [Mass ratio] Serum or plasma urea nitrogen/creatinine mass ratio 6-20 [facility] Specific gravity Test strip (U) [Rel density]Ordered By: VIET MARIA on 12-13-2024 Specific gravity (U) [Rel density] Specific gravity ur dipstick 1.015-1.025 [facility] Troponin I measurement by sc ghly sensitive enzyme immunoassayOrdered By: VIET MARIA on 12-13-2024 Troponin I.cardiac High sensitivity method [Mass/Vol] Troponin I measurement by highly sensitive enzyme immunoassay [facility] UA w/Micrscopic-reflex cultu reon 12-13-2024 Appearance (U) CLEAR Normal Clear [facility] Comment on above: Performed By: #### U AMRC #### [address] [place] [address] Bacteria 1+ /hpf Normal 0 - 1+ [facility] Comment on above: Performed By: #### U AMRC #### [address] [place] [address] Bilirubin Ql (U) Negative Normal Negative [facility] Comment on above: Performed By: #### U AMRC #### [address] [place] [address] Casts LEARNING SUPPORT TEACHER Normal [facility] Comment on above: Performed By: #### U AMRC #### [address] [place] [address] Casts. LEARNING SUPPORT TEACHER Normal [facility] Comment on above: Performed By: #### U AMRC #### [address] [place] [address] Color (U) leif Normal Yellow [facility] Comment on above: Performed By: #### U AMRC #### [address] [address] Crystals LM Nom (Urine sed) LEARNING SUPPORT TEACHER Normal [facility] Comment on above: Performed By: #### U AMRC #### [facility] [address] [place] [address] Crystals. LEARNING SUPPORT TEACHER Normal [facility] Comment on above: Performed By: #### U AMRC #### [facility] [address] [place] [address] Epithelial cells LM Ql (Urine sed) >15 Normal 0 - 6 [facility] Comment on above: Performed By: #### U AMRC #### [facility] [address] [place] [address] Glucose Ql (U) NORMAL Normal Negative [facility] Comment on above: Performed By: #### U AMRC #### [facility] [address] [place] [address] Hemoglobin Ql (U) 10 Abnormal Negative [facility] Comment on above: Performed By: #### U AMRC #### [facility] [address] [place] [address] Ketones Ql (U) Negative Normal Negative [facility] Comment on above: Performed By: #### U AMRC #### [facility] [address] [place] [address] Leukocytes Esterase Negative Normal Negative [facility] Comment on above: Performed By: #### U AMRC #### [facility] [address] [place] [address] Mucus Ql (Urine sed) LEARNING SUPPORT TEACHER Normal [facility] Comment on above: Performed By: #### U AMRC #### [facility] [address] [place] [address] Nitrite Ql (U) Negative Normal Negative [facility] Comment on above: Performed By: #### U AMRC #### [address] [place] [address] pH (U) 5 [pH] Normal [facility] Comment on above: Performed By: #### U AMRC #### [address] [place] [address] Protein Ql (U) 15 Abnormal Negative [facility] Comment on above: Performed By: #### U AMRC #### [address] [address] RBC None Seen Normal 0 - 2 [facility] Comment on above: Performed By: #### U AMRC #### [address] [address] Specific gravity (U) [Rel density] 1.020 Normal 1.015-1.025 [facility] Comment on above: Performed By: #### U AMRC #### [address] [place] [address] Trichomonas LEARNING SUPPORT TEACHER Normal [facility] Comment on above: Performed By: #### U AMRC #### [address] [place] [address] Urobilinogen NORMAL Normal Normal-1.0 [facility] Comment on above: Performed By: #### U AMRC #### [address] [address] WBC 0-2 Normal 0 - 6 [facility] Comment on above: Performed By: #### U AMRC #### [address] [address] Yeast LEARNING SUPPORT TEACHER Normal [facility] Comment on above: Performed By: #### U AMRC #### [facility] [address] [place], [place] [id number] Other LEARNING SUPPORT TEACHER Normal [facility] Comment on above: Performed By: #### U AMRC #### [facility] [address] [place], [place] [id number] Urine appearance determinati onOrdered By: VIET MARIA on 12-13-2024 Appearance (U) Appearance ur Clear [facility] Urine color determinationOrd ered By: VIET MARIA on 12-13-2024 Color (U) Color ur Yellow [facility] Urine epithelial cells detec tionOrdered By: VIET MARIA on 12-13-2024 Epithelial cells Ql (U) Urine epithelial cells detection 0 - 6 [facility] Urine glucose measurement by test strip (mass/volume)Ordered By: VIET MARIA on 12-13-2024 Glucose Test strip (U) [Mass/Vol] Urine glucose measurement by test strip (mass/volume) Negative [facility] Urine leukocytes count (numb er/volume)Ordered By: VIET MARIA on 12-13-2024 WBC (U) [#/Vol] Urine leukocytes cou nt (number/volume) 0 - 6 [facility] Urine total bilirubin detect ionOrdered By: VIET MARIA on 12-13-2024 Bilirubin Ql (U) Urine total bilirubi n detection Negative [facility] Urine urobilinogen measureme ntOrdered By: VIET MARIA on 12-13-2024 Urobilinogen Ql (U) Urine urobilinogen measurement Normal-1.0 [facility] Whole blood hemoglobin measu rement (mass/volume)Ordered By: VIET MARIA on 12-13-2024 Hemoglobin (Bld) [Mass/Vol] Whole blood hemoglobin measurement (mass/volume) High 11.1-13.7 [facility] pH Test strip (U)Ordered By: VIET MARIA on 12-13-2024 pH (U) Urine pH measurement by dipstick [facility] ED MED ADMINISTRATION DETAIL on 12-01-2024 ED MED ADMINISTRATION DETAIL Normal [facility] ED NURSES CLINICAL NOTEon ED NURSES CLINICAL NOTE Normal [facility] ED ORDER SHEET (CPOE ONLY)on 12-01-2024 ED ORDER SHEET (CPOE ONLY) Normal [facility] ED PHYSICIAN CLINICAL REPORT on 12-01-2024 ED PHYSICIAN CLINICAL REPORT Normal [facility] ED PHYSICIAN DISCHARGE REPOR Ton 12-01-2024 ED PHYSICIAN DISCHARGE REPORT Normal [facility] ED SUPER BILLon 12-01-2024 ED SUPER BILL Normal [facility] ED VISIT SUMMARYon ED VISIT SUMMARY Normal [facility] ED VITALS FLOW SHEETon 12-01 ED VITALS FLOW SHEET Normal [facility] ED MED ADMINISTRATION DETAIL on 11-28-2024 ED MED ADMINISTRATION DETAIL Normal [facility] ED NURSES CLINICAL NOTEon ED NURSES CLINICAL NOTE Normal [facility] ED ORDER SHEET (CPOE ONLY)on 11-28-2024 ED ORDER SHEET (CPOE ONLY) Normal [facility] ED PHYSICIAN CLINICAL REPORT on 11-28-2024 ED PHYSICIAN CLINICAL REPORT Normal [facility] ED PHYSICIAN DISCHARGE REPOR Ton 11-28-2024 ED PHYSICIAN DISCHARGE REPORT Normal [facility] ED SUPER BILLon 11-28-2024 ED SUPER BILL Normal [facility] ED VISIT SUMMARYon ED VISIT SUMMARY Normal [facility] ED VITALS FLOW SHEETon 11-28 ED VITALS FLOW SHEET Normal [facility] BMP with eGFRon 11-27-2024 AGE 29 years Normal [facility] Comment on above: Performed By: #### 2 19001 ####[facility],[address] [place] [address] Anion gap [Moles/Vol] 12 mmol/L Normal 10 - 20 [facility] Comment on above: Performed By: #### 2 87182 ####[facility],[address] [place] [address] 99196 BMP with eGFR Normal [facility] Comment on above: Result Comment: BASI C METABOLIC PANEL Performed By: #### 2 30304 ####[facility],[address] [place] [address] 92603 Calcium [Mass/Vol] 8.0 mg/dL Low 8.5 - 10.1 [facility] Comment on above: Performed By: #### 2 74645 ####[facility],[address] [place] [address] 62791 Chloride [Moles/Vol] 102 mmol/L Normal 98 - 107 [facility] Comment on above: Performed By: #### 2 47265 ####[facility],[address] [place] [address] 61713 CO2 [Moles/Vol] 27.4 mmol/L Normal 21.0 - 32.0 [facility] Comment on above: Performed By: #### 2 49352 ####[facility],[address] [place] [address] 09068 Creatinine [Mass/Vol] 0.78 mg/dL Normal 0.55 - 1.02 [facility] Comment on above: Performed By: #### 2 57057 ####[facility],[address] [place] [address] 85503 GFR/1.73 sq M.predicted among non-blacks MDRD (S/P/Bld) [Vol rate/Area] mL/min/{1.73_m2} Normal 60 - 999 [facility] Comment on above: Performed By: #### 2 49101 ####[facility],[address] [place] [address] 51146 Result Comment: ACCO RDING TO THE NATIONAL KIDNEY DISEASE EDUCATION PROGRAM(NKDE), A NORMAL eGFRIS A VALUE GREATER THAN OR EQUAL TO 60 ML/MIN/1.73 SQ METERS.CHRONIC KIDNEY DISEASE: <60mL/MIN/1.73 SQ METERSKIDNEY FAILURE: <15mL/MIN/1.73 SQ METERSTHIS TEST SHOULD ONLY BE USED FOR PATIENTS 18 YEARS OF AGE AND OLDER. Glucose [Mass/Vol] 117 mg/dL High 74 - 106 [facility] Comment on above: Performed By: #### 2 37881 ####[facility],[address] [place] [address] 36745 Potassium [Moles/Vol] 2.9 mmol/L Critically low 3.5 - 5.1 [facility] Comment on above: Result Comment: { CA LLED TO JOSEPH BHAT BY TR @ 0556{ READ BACK BY JOSEPH BHAT RA @ 0555 Performed By: #### 2 57514 ####[facility],[address] [place] [address] 85573 Sodium [Moles/Vol] 138 mmol/L Normal 136 - 145 [facility] Comment on above: Performed By: #### 2 70276 ####[facility],[address] [place] [address] 43563 Urea nitrogen [Mass/Vol] 13 mg/dL Normal 7 - 18 [facility] Comment on above: Performed By: #### 2 29069 ####[facility],[address] [place] [address] 98091 CBC + DIFFon 11-27-2024 Baso # 0.04 x10EE3/UL Normal 0.00 - 0.10 [facility] Comment on above: Performed By: #### 2 83008 ####[facility],[address] [place] [address] 33002 Basophils/100 WBC (Bld) 0.4 % Normal 0.0 - 2.0 [facility] Comment on above: Performed By: #### 2 30398 ####[facility],[address] [place] [address] 14305 CBC + DIFF Normal [facility] Comment on above: Result Comment: CBC- COMPLETE BLOOD COUNT Performed By: #### 2 51234 ####[address] [address] EO # 0.64 x10EE3/UL High 0.00 - 0.50 [facility] Comment on above: Performed By: #### 2 71681 ####[place] [id number] Eosinophils/100 WBC (Bld) 6.3 % Normal 0.0 - 7.0 [facility] Comment on above: Performed By: #### 2 97349 ####[place] [address] Erythrocyte distribution width (RBC) [Ratio] 13.2 % Normal 12.0 - 15.6 [facility] Comment on above: Performed By: #### 2 41975 ####[place] [address] Hematocrit (Bld) [Volume fraction] 44.2 % Normal 34.0 - 46.0 [facility] Comment on above: Performed By: #### 2 57750 ####[place] [address] Hemoglobin (Bld) [Mass/Vol] 15.5 g/dL Normal 12.0 - 16.0 [facility] Comment on above: Performed By: #### 2 28035 ####[address] [address] Lymph # 2.50 x10EE3/UL Normal 0.80 - 2.80 [facility] Comment on above: Performed By: #### 2 55547 ####[place] [id number] Lymphocytes/100 WBC (Bld) 24.5 % Normal 20.0 - 45.0 [facility] Comment on above: Performed By: #### 2 01531 ####[place] [address] MANUAL DIFF N/A Normal [facility] Comment on above: Performed By: #### 2 55459 ####[facility],[address] [place], [place] [address] MCH (RBC) [Entitic mass] 31 pg Normal 27 - 33 [facility] Comment on above: Performed By: #### 2 63897 ####[facility],[address] [place] [address] MCHC 35 X10 3 Normal 32 - 36 [facility] Comment on above: Performed By: #### 2 83328 ####[facility],[address] [place] [address] MCV (RBC) [Entitic vol] 87 fL Normal 80 - 99 [facility] Comment on above: Performed By: #### 2 36688 ####[facility],[address] [place] [address] Simpson # 0.64 x10EE3/UL Normal 0.20 - 1.00 [facility] Comment on above: Performed By: #### 2 76657 ####[facility],[address] [place] [address] 78316 MONOS % 6.3 % Normal 0.0 - 10.0 [facility] Comment on above: Performed By: #### 2 87775 ####[facility],[address] [place] [address] 16349 Morphology Kamlesh (Bld) [Interp] N/A Normal [facility] Comment on above: Performed By: #### 2 46418 ####[facility],[address] [place] [address] Neut # 6.40 x10EE3/UL Normal 1.50 - 7.10 [facility] Comment on above: Performed By: #### 2 18399 ####[facility],[address] [place], [place] [address] Neutrophils/100 WBC (Bld) 62.6 % Normal 46.0 - 76.0 [facility] Comment on above: Performed By: #### 2 50075 ####[facility],[address] [place] [address] 31907 PLATELET 272 x10EE3/UL Normal 150 - 450 [facility] Comment on above: Performed By: #### 2 23355 ####[facility],[address] [place], [place] [address] Platelet mean volume (Bld) [Entitic vol] 7.6 fL Normal 6.6 - 10.5 [facility] Comment on above: Result Comment: AUTO MATED DIFFERENTIAL Performed By: #### 2 59863 ####[facility],[address] [place] [address] 21940 RBC 5.06 x 10EE6/UL Normal 4.10 - 5.30 [facility] Comment on above: Performed By: #### 2 67492 ####[facility],[address] [place], [place] [address] WBC 10.2 x 10EE3/UL Normal 4.5 - 10.8 [facility] Comment on above: Performed By: #### 2 53246 ####[facility],[address] [place] [address] 83445 CHEST 1 VIEWon 11-27-2024 CHEST 1 VIEW Normal [facility] D-DIMER, QUANTITATIVEon 11-04 D-DIMER QUANT <200 Normal 0 - 230 [facility] Comment on above: Performed By: #### 2 24097 ####[facility],[address] [place] [address] 88194 D-DIMER, QUANTITATIVE Normal [facility] Comment on above: Result Comment: TREMAYNE T D-DIMER Performed By: #### 2 20916 ####[facility],[address] [place] [address] 69944 TROPONINon 11-27-2024 HS TROPONIN 30.2 pg/mL Normal 0.0 - 51.4 [facility] Comment on above: Performed By: #### 2 08433 ####[facility],[address] [place] [address] 24722 ED MED ADMINISTRATION DETAIL on 11-20-2024 ED MED ADMINISTRATION DETAIL Normal [facility] ED NURSES CLINICAL NOTEon ED NURSES CLINICAL NOTE Normal [facility] ED ORDER SHEET (CPOE ONLY)on 11-20-2024 ED ORDER SHEET (CPOE ONLY) Normal [facility] ED PHYSICIAN CLINICAL REPORT on 11-20-2024 ED PHYSICIAN CLINICAL REPORT Normal [facility] ED PHYSICIAN DISCHARGE REPOR Ton 11-20-2024 ED PHYSICIAN DISCHARGE REPORT Normal [facility] ED SUPER BILLon 11-20-2024 ED SUPER BILL Normal [facility] ED VISIT SUMMARYon ED VISIT SUMMARY Normal [facility] ED VITALS FLOW SHEETon 11-20 ED VITALS FLOW SHEET Normal [facility] TROPONINon 11-20-2024 HS TROPONIN 19.1 pg/mL Normal 0.0 - 51.4 [facility] Comment on above: Performed By: #### 2 05482 ####[facility],[address] [place] [address] 28083 BMP with eGFRon 11-19-2024 AGE 29 years Normal [facility] Comment on above: Performed By: #### 2 70258 ####[facility],[address] [place] [address] 07154 Anion gap [Moles/Vol] 16 mmol/L Normal 10 - 20 [facility] Comment on above: Performed By: #### 2 01908 ####[facility],[address] [place] [address] 50972 BMP with eGFR Normal [facility] Comment on above: Result Comment: BASI C METABOLIC PANEL Performed By: #### 2 98700 ####[facility],[address] [place] [address] 54998 Calcium [Mass/Vol] 8.2 mg/dL Low 8.5 - 10.1 [facility] Comment on above: Performed By: #### 2 54364 ####[facility],[address] [place] [address] 68461 Chloride [Moles/Vol] 103 mmol/L Normal 98 - 107 [facility] Comment on above: Performed By: #### 2 55627 ####[facility],[address] [place] [address] 42998 CO2 [Moles/Vol] 26.4 mmol/L Normal 21.0 - 32.0 [facility] Comment on above: Performed By: #### 2 43450 ####[facility],[address] [place] [address] 78039 Creatinine [Mass/Vol] 1.01 mg/dL Normal 0.55 - 1.02 [facility] Comment on above: Performed By: #### 2 21906 ####[facility],[address] [place], [place] [address] GFR/1.73 sq M.predicted among non-blacks MDRD (S/P/Bld) [Vol rate/Area] mL/min/{1.73_m2} Normal 60 - 999 [facility] Comment on above: Performed By: #### 2 78108 ####[facility],[address] [place] [address] 41264 Result Comment: ACCO RDING TO THE NATIONAL KIDNEY DISEASE EDUCATION PROGRAM(NKDE), A NORMAL eGFRIS A VALUE GREATER THAN OR EQUAL TO 60 ML/MIN/1.73 SQ METERS.CHRONIC KIDNEY DISEASE: <60mL/MIN/1.73 SQ METERSKIDNEY FAILURE: <15mL/MIN/1.73 SQ METERSTHIS TEST SHOULD ONLY BE USED FOR PATIENTS 18 YEARS OF AGE AND OLDER. Glucose [Mass/Vol] 111 mg/dL High 74 - 106 [facility] Comment on above: Performed By: #### 2 01350 ####[facility],[address] [place] [address] 73412 Potassium [Moles/Vol] 3.2 mmol/L Low 3.5 - 5.1 [facility] Comment on above: Performed By: #### 2 79393 ####[facility],[address] [place] [address] 00539 Sodium [Moles/Vol] 142 mmol/L Normal 136 - 145 [facility] Comment on above: Performed By: #### 2 17605 ####[facility],[address] [place] [address] Urea nitrogen [Mass/Vol] 14 mg/dL Normal 7 - 18 [facility] Comment on above: Performed By: #### 2 02076 ####[facility],[address] [place] [address] CBC + DIFFon 11-19-2024 Baso # 0.03 x10EE3/UL Normal 0.00 - 0.10 [facility] Comment on above: Performed By: #### 2 92651 ####[facility],[address] [place] [address] 42078 Basophils/100 WBC (Bld) 0.2 % Normal 0.0 - 2.0 [facility] Comment on above: Performed By: #### 2 09181 ####[facility],[address] [place] [address] CBC + DIFF Normal [facility] Comment on above: Result Comment: CBC- COMPLETE BLOOD COUNT Performed By: #### 2 49716 ####[facility],[address] [place] [address] 56139 EO # 1.23 x10EE3/UL High 0.00 - 0.50 [facility] Comment on above: Performed By: #### 2 38452 ####[address] [address] Eosinophils/100 WBC (Bld) 8.8 % High 0.0 - 7.0 [facility] Comment on above: Performed By: #### 2 22907 ####[facility],[address] [place] [address] Erythrocyte distribution width (RBC) [Ratio] 14.0 % Normal 12.0 - 15.6 [facility] Comment on above: Performed By: #### 2 69232 ####[facility],[address] [place], [place] [address] Hematocrit (Bld) [Volume fraction] 46.6 % High 34.0 - 46.0 [facility] Comment on above: Performed By: #### 2 06690 ####[facility],[address] [place] [address] Hemoglobin (Bld) [Mass/Vol] 16.1 g/dL High 12.0 - 16.0 [facility] Comment on above: Performed By: #### 2 49486 ####[facility],[address] [place] [address] Lymph # 3.53 x10EE3/UL High 0.80 - 2.80 [facility] Comment on above: Performed By: #### 2 93821 ####[facility],[address] [place], [place] [address] Lymphocytes/100 WBC (Bld) 25.2 % Normal 20.0 - 45.0 [facility] Comment on above: Performed By: #### 2 01420 ####[facility],[address] [place] [address] 20499 MANUAL DIFF N/A Normal [facility] Comment on above: Performed By: #### 2 44113 ####[facility],[address] [place] [address] 20958 MCH (RBC) [Entitic mass] 30 pg Normal 27 - 33 [facility] Comment on above: Performed By: #### 2 78125 ####[facility],[address] [place] [address] 73266 MCHC 35 X10 3 Normal 32 - 36 [facility] Comment on above: Performed By: #### 2 66758 ####[facility],[address] [place] [address] 38858 MCV (RBC) [Entitic vol] 87 fL Normal 80 - 99 [facility] Comment on above: Performed By: #### 2 04214 ####[facility],[address] [place] [address] 65930 Simpson # 0.60 x10EE3/UL Normal 0.20 - 1.00 [facility] Comment on above: Performed By: #### 2 77798 ####[facility],[address] [place] [address] 38131 MONOS % 4.3 % Normal 0.0 - 10.0 [facility] Comment on above: Performed By: #### 2 73139 ####[facility],[address] [place] [address] 98720 Morphology Kamlesh (Bld) [Interp] N/A Normal [facility] Comment on above: Performed By: #### 2 52145 ####[facility],[address] [place] [address] 36318 Neut # 8.60 x10EE3/UL High 1.50 - 7.10 [facility] Comment on above: Performed By: #### 2 02265 ####[facility],[address] [place] [address] 54193 Neutrophils/100 WBC (Bld) 61.4 % Normal 46.0 - 76.0 [facility] Comment on above: Performed By: #### 2 54838 ####[facility],[address] [place] [address] 40059 PLATELET 330 x10EE3/UL Normal 150 - 450 [facility] Comment on above: Performed By: #### 2 90397 ####[facility],[address] [place] [address] 53579 Platelet mean volume (Bld) [Entitic vol] 7.7 fL Normal 6.6 - 10.5 [facility] Comment on above: Result Comment: AUTO MATED DIFFERENTIAL Performed By: #### 2 83064 ####[facility],[address] [place] [address] 08286 RBC 5.36 x 10EE6/UL High 4.10 - 5.30 [facility] Comment on above: Performed By: #### 2 68752 ####[facility],[address] [place] [address] WBC 14.0 x 10EE3/UL High 4.5 - 10.8 [facility] Comment on above: Performed By: #### 2 69613 ####[facility],[address] [place] [address] CHEST 1 VIEWon 11-19-2024 CHEST 1 VIEW Normal [facility] TROPONINon 11-19-2024 HS TROPONIN 21.9 pg/mL Normal 0.0 - 51.4 [facility] Comment on above: Performed By: #### 2 55779 ####[facility],[address] [place] [address] CBC + DIFFon 11-06-2024 Baso # 0.02 x10EE3/UL Normal 0.00 - 0.10 [facility] Comment on above: Performed By: #### 2 89237 ####[facility],[address] [place] [address] Basophils/100 WBC (Bld) 0.2 % Normal 0.0 - 2.0 [facility] Comment on above: Performed By: #### 2 41906 ####[facility],[address] [place] [address] CBC + DIFF Normal [facility] Comment on above: Result Comment: CBC- COMPLETE BLOOD COUNT Performed By: #### 2 45125 ####[facility],[address] [place] [address] EO # 0.26 x10EE3/UL Normal 0.00 - 0.50 [facility] Comment on above: Performed By: #### 2 26321 ####[facility],[address] [place] [address] 33201 Eosinophils/100 WBC (Bld) 2.8 % Normal 0.0 - 7.0 [facility] Comment on above: Performed By: #### 2 84065 ####[facility],[address] [place], [place] [address] Erythrocyte distribution width (RBC) [Ratio] 13.8 % Normal 12.0 - 15.6 [facility] Comment on above: Performed By: #### 2 36123 ####[facility],[address] [place] [address] Hematocrit (Bld) [Volume fraction] 45.2 % Normal 34.0 - 46.0 [facility] Comment on above: Performed By: #### 2 00705 ####[facility],[address] [place] [address] Hemoglobin (Bld) [Mass/Vol] 15.6 g/dL Normal 12.0 - 16.0 [facility] Comment on above: Performed By: #### 2 00268 ####[facility],[address] [place] [address] 35001 Lymph # 1.79 x10EE3/UL Normal 0.80 - 2.80 [facility] Comment on above: Performed By: #### 2 00654 ####[facility],[address] [place] [address] 04916 Lymphocytes/100 WBC (Bld) 19.1 % Low 20.0 - 45.0 [facility] Comment on above: Performed By: #### 2 59122 ####[facility],[address] [place] [address] 78857 MANUAL DIFF N/A Normal [facility] Comment on above: Performed By: #### 2 80490 ####[facility],[address] [place] [address] 27892 MCH (RBC) [Entitic mass] 30 pg Normal 27 - 33 [facility] Comment on above: Performed By: #### 2 91785 ####[facility],[address] [place] [address] MCHC 34 X10 3 Normal 32 - 36 [facility] Comment on above: Performed By: #### 2 46664 ####[facility],[address] [place], [place] [address] MCV (RBC) [Entitic vol] 86 fL Normal 80 - 99 [facility] Comment on above: Performed By: #### 2 84834 ####[facility],[address] [place] [address] Simpson # 0.43 x10EE3/UL Normal 0.20 - 1.00 [facility] Comment on above: Performed By: #### 2 62157 ####[facility],[address] [place] [address] MONOS % 4.6 % Normal 0.0 - 10.0 [facility] Comment on above: Performed By: #### 2 78285 ####[facility],[address] [place] [address] Morphology Kamlesh (Bld) [Interp] N/A Normal [facility] Comment on above: Performed By: #### 2 56779 ####[facility],[address] [place] [address] Neut # 6.87 x10EE3/UL Normal 1.50 - 7.10 [facility] Comment on above: Performed By: #### 2 82417 ####[facility],[address] [place] [address] Neutrophils/100 WBC (Bld) 73.4 % Normal 46.0 - 76.0 [facility] Comment on above: Performed By: #### 2 75354 ####[facility],[address] [place] [address] PLATELET 288 x10EE3/UL Normal 150 - 450 [facility] Comment on above: Performed By: #### 2 06366 ####[facility],[address] [place] [address] 93274 Platelet mean volume (Bld) [Entitic vol] 8.0 fL Normal 6.6 - 10.5 [facility] Comment on above: Result Comment: AUTO MATED DIFFERENTIAL Performed By: #### 2 80678 ####[facility],[address] [place] [address] 57215 RBC 5.26 x 10EE6/UL Normal 4.10 - 5.30 [facility] Comment on above: Performed By: #### 2 34386 ####[facility],[address] [place], [place] [address] WBC 9.4 x 10EE3/UL Normal 4.5 - 10.8 [facility] Comment on above: Performed By: #### 2 59403 ####[facility],[address] [place], [place] [address] CHEST 2 VIEWSon 11-06-2024 CHEST 2 VIEWS Normal [facility] CMP with eGFRon 11-06-2024 AGE 29 years Normal [facility] Comment on above: Performed By: #### 2 88525 ####[facility],[address] [place], [place] [address] Albumin [Mass/Vol] 3.5 g/dL Normal 3.4 - 5.0 [facility] Comment on above: Performed By: #### 2 66091 ####[facility],[address] [place], [place] [address] Albumin/Globulin [Mass ratio] 0.9 {ratio} Normal 0.9 - 1.6 [facility] Comment on above: Performed By: #### 2 00702 ####[facility],[address] [place] [address] 15090 ALK PHOS 95 U/L Normal 46 - 116 [facility] Comment on above: Performed By: #### 2 38499 ####[facility],[address] [place], [place] [address] ALT [Catalytic activity/Vol] 37 U/L Normal 16 - 63 [facility] Comment on above: Performed By: #### 2 72379 ####[facility],[address] [place], [place] [address] Anion gap [Moles/Vol] 12 mmol/L Normal 10 - 20 [facility] Comment on above: Performed By: #### 2 92755 ####[facility],[address] [place] [address] AST [Catalytic activity/Vol] 19 U/L Normal 13 - 39 [facility] Comment on above: Performed By: #### 2 42334 ####[facility],[address] [place] [address] B/C RATIO 15 ratio Normal 0 - 30 [facility] Comment on above: Performed By: #### 2 67841 ####[facility],[address] [place] [address] Bilirubin [Mass/Vol] 0.3 mg/dL Normal 0.2 - 1.0 [facility] Comment on above: Performed By: #### 2 28483 ####[facility],[address] [place] [address] Calcium [Mass/Vol] 8.9 mg/dL Normal 8.5 - 10.1 [facility] Comment on above: Performed By: #### 2 05250 ####[facility],[address] [place], [place] [phone] Chloride [Moles/Vol] 103 mmol/L Normal 98 - 107 [facility] Comment on above: Performed By: #### 2 75149 ####[facility],[address] [place], [place] [phone] CMP with eGFR Normal [facility] Comment on above: Result Comment: COMP REHENSIVE METABOLIC PANEL Performed By: #### 2 91747 ####[facility],[address] [place] [address] 52804 CO2 [Moles/Vol] 27.0 mmol/L Normal 21.0 - 32.0 [facility] Comment on above: Performed By: #### 2 63656 ####[address] [address] Creatinine [Mass/Vol] 0.62 mg/dL Normal 0.55 - 1.02 [facility] Comment on above: Performed By: #### 2 37724 ####[address] [address] GFR/1.73 sq M.predicted among non-blacks MDRD (S/P/Bld) [Vol rate/Area] mL/min/{1.73_m2} Normal 60 - 999 [facility] Comment on above: Performed By: #### 2 84811 ####[address] [address] Result Comment: ACCO RDING TO THE NATIONAL KIDNEY DISEASE EDUCATION PROGRAM(NKDE), A NORMAL eGFRIS A VALUE GREATER THAN OR EQUAL TO 60 ML/MIN/1.73 SQ METERS.CHRONIC KIDNEY DISEASE: <60mL/MIN/1.73 SQ METERSKIDNEY FAILURE: <15mL/MIN/1.73 SQ METERSTHIS TEST SHOULD ONLY BE USED FOR PATIENTS 18 YEARS OF AGE AND OLDER. Globulin (S) [Mass/Vol] 3.7 g/dL Normal 1.5 - 3.8 [facility] Comment on above: Performed By: #### 2 94607 ####[address] [address] Glucose [Mass/Vol] 112 mg/dL High 74 - 106 [facility] Comment on above: Performed By: #### 2 73062 ####[address] [address] Potassium [Moles/Vol] 3.4 mmol/L Low 3.5 - 5.1 [facility] Comment on above: Performed By: #### 2 89247 ####[address] [place] [address] Protein [Mass/Vol] 7.2 g/dL Normal 6.4 - 8.2 [facility] Comment on above: Performed By: #### 2 63973 ####[facility],[address] [place] [address] Sodium [Moles/Vol] 139 mmol/L Normal 136 - 145 [facility] Comment on above: Performed By: #### 2 28038 ####[facility],[address] [place] [address] Urea nitrogen [Mass/Vol] 9 mg/dL Normal 7 - 18 [facility] Comment on above: Performed By: #### 2 16756 ####[facility],[address] [place] [address] CORONAVIRUS (SARS) ANTIGEN T ESTon 11-06-2024 EXTERNAL QC DONE? YES Normal [facility] [facility] Comment on above: Performed By: #### 2 87349 ####[facility],[address] [place] [address] INTERNAL CONTROL PASS Normal [facility] Comment on above: Performed By: #### 2 98710 ####[facility],[address] [place] [address] SARS ANTIGEN Negative Normal NORMAL: NEGATIVE [facility] Comment on above: Performed By: #### 2 03691 ####[facility],[address] [place] [address] SEND TO ? YES Normal [facility] Comment on above: Result Comment: SARS -CoV-2THIS TEST IS BEING USED UNDER THE FDA EUA PROCEDURE. THIS ASSAY HAS BEENVALIDATED AT [facility] FOR USE WITH NASAL AND NASOPHARYNGEAL SWABSPECIMENS.INTERPRETIVE [...] BY HEALTHCARE PROVIDERS IN CONSULTATION WITH [facility]. Performed By: #### 2 39705 ####[place] [address] CT CHEST (PE PROTOCOL)on CT CHEST (PE PROTOCOL) Normal [facility] INFLUENZA VIRUS RAPID A/Bon 11-06-2024 INFLUENZA VIRUS RAPID A/B Normal [facility] Comment on above: Performed By: #### 2 59163 ####[place] [address] LACTATEon 11-06-2024 Lactate [Moles/Vol] 1.1 mmol/L Normal 0.4 - 2.0 [facility] Comment on above: Performed By: #### 2 34935 ####[place] [address] Abdomen/Pelvis without Conto n 07-30-2024 Abdomen/Pelvis without Cont [facility] [address] [place], [place] [address] Abdomen/Pelvis without Cont MR#: [id number] Acct: [id number] Name: JESSICA ACUNA Rep #: [id number] : 1995 F 29 From: Familia krueger MD PCP: JUDD Parham Status: REG ER Study: Abdomen/Pelvis without Cont Date of Exam: 07/04 05/26 Exam# [id number] Ordering Dr: Laureen Rodriges DO [id number] STUDY: CT ABDOMEN AND PELVIS WITHOUT CONTRAST [...] Lai MD at 15:07 EDT , CC: LEARNING SUPPORT TEACHERJose SPERA. Tia Núñez; Dr. Laureen Rodriges, Resident Engineer: Signed Normal [facility] Basic Metabolic Profile (BMP )on 07-30-2024 BUN/CRE 13.2 RATIO Normal 07-22 [facility] Comment on above: Performed By: #### L 500.2500, L100.0100, L700.6800 ####[facility] [address] [place], [address] CA,Total 8.8 mg/dL Normal 8.5-10.1 [facility] Comment on above: Performed By: #### L 500.2500, L100.0100, L700.6800 ####[facility] [address] [place], [address] Chloride [Moles/Vol] 108 mmol/L High 98-107 [facility] Comment on above: Performed By: #### L 500.2500, L100.0100, L700.6800 ####[facility] [address] [place], [address] CO2 [Moles/Vol] 24.0 mmol/L Normal 21.0-32.0 [facility] Comment on above: Performed By: #### L 500.2500, L100.0100, L700.6800 ####[facility] [address] [place], [address] Creatinine [Mass/Vol] 0.68 mg/dL Normal 0.55-1.02 [facility] Comment on above: Result Comment: The validity of the calculated GFR GFRAA in patients over 70 years has not been determined. Clinical correlation is essential. Performed By: #### L 500.2500, L100.0100, L700.6800 ####[facility] [address] [place], [address] ECRCL 178.76 ml/min Normal [facility] Comment on above: Performed By: #### L 500.2500, L100.0100, L700.6800 ####[facility] [address] [place], [address] EST GFR - AA 130 mL/min Normal >60 [facility] Comment on above: Result Comment: Afri can Moroccan GFR Calc Performed By: #### L 500.2500, L100.0100, L700.6800 ####[facility] [address] [place], [address] GAP 6 Normal 5-15 [facility] Comment on above: Performed By: #### L 500.2500, L100.0100, L700.6800 ####[facility] [address] [place], [address] GFR/1.73 sq M.predicted among non-blacks MDRD (S/P/Bld) [Vol rate/Area] 108 mL/min/{1.73_m2} Normal >60 [facility] Comment on above: Result Comment: Non- GFR Calc Performed By: #### L 500.2500, L100.0100, L700.6800 ####[facility] [address] [place], [address] Glucose [Mass/Vol] 104 mg/dL Normal 74-106 [facility] Comment on above: Result Comment: Fast ing Glucose result from 100 to 125 mg/dL suggests IMPAIRED HOMEOSTASIS per A.D.A. criteria. Performed By: #### L 500.2500, L100.0100, L700.6800 ####[facility] [address] [place], [address] Potassium [Moles/Vol] 3.1 mmol/L Low 3.5-5.1 [facility] Comment on above: Performed By: #### L 500.2500, L100.0100, L700.6800 ####[facility] [address] [place], [address] Sodium [Moles/Vol] 138 mmol/L Normal 136-145 [facility] Comment on above: Performed By: #### L 500.2500, L100.0100, L700.6800 ####[facility] [address] [place], [address] Urea nitrogen [Mass/Vol] 9 mg/dL Normal 7-18 [facility] Comment on above: Performed By: #### L 500.2500, L100.0100, L700.6800 ####[facility] [address] [place], [address] CBC W/Diff, Automatedon 10-2 Absolute Lymph 2.09 X10 3/uL Normal 0.83-4.51 [facility] Comment on above: Performed By: #### L 500.2500, L100.0100, L700.6800 ####[facility] [address] [place], [address] Absolute Neut 7.2 X10 3/uL Normal 2.0-7.7 [facility] Comment on above: Performed By: #### L 500.2500, L100.0100, L700.6800 ####[facility] [address] [place], [address] Basophils/100 WBC (Bld) 0.8 % Normal 0-1 [facility] Comment on above: Performed By: #### L 500.2500, L100.0100, L700.6800 ####[facility] [address] [place], [address] Eosinophils/100 WBC (Bld) 1.9 % Normal 0-5 [facility] Comment on above: Performed By: #### L 500.2500, L100.0100, L700.6800 ####[facility] [address] [place], [address] Erythrocyte distribution width (RBC) [Ratio] 12.7 % Normal 11.6-14.6 [facility] Comment on above: Performed By: #### L 500.2500, L100.0100, L700.6800 ####[facility] [address] [place], [address] Hematocrit (Bld) [Volume fraction] 42.6 % Normal 37-47 [facility] Comment on above: Performed By: #### L 500.2500, L100.0100, L700.6800 ####[facility] [address] [place], [address] Hemoglobin (Bld) [Mass/Vol] 15.1 g/dL High 12.0-15.0 [facility] Comment on above: Performed By: #### L 500.2500, L100.0100, L700.6800 ####[facility] [address] [place], [address] IG% 0.200 Normal 0.0-0.9 [facility] Comment on above: Result Comment: IG% - Immature Granulocytes (promyelocytes, myelocytes and metamyelocytes) > 1% indicates that a LEFT SHIFT is Present. Performed By: #### L 500.2500, L100.0100, L700.6800 ####[facility] [address] [place], [address] Lymphocytes/100 WBC (Bld) 20.7 % Normal 19-41 [facility] Comment on above: Performed By: #### L 500.2500, L100.0100, L700.6800 ####[facility] [address] [place], [address] MCH (RBC) [Entitic mass] 29.7 pg Normal 27.0-32.0 [facility] Comment on above: Performed By: #### L 500.2500, L100.0100, L700.6800 ####[facility] [address] [place], [address] MCHC (RBC) [Mass/Vol] 35.4 g/dL Normal 32-36 [facility] Comment on above: Performed By: #### L 500.2500, L100.0100, L700.6800 ####[facility] [address] [place], [address] MCV (RBC) [Entitic vol] 83.9 fL Normal 81-99 [facility] Comment on above: Performed By: #### L 500.2500, L100.0100, L700.6800 ####[facility] [address] [place], [address] Monocytes/100 WBC (Bld) 5.7 % Normal 0-10 [facility] Comment on above: Performed By: #### L 500.2500, L100.0100, L700.6800 ####[facility] [address] [place], [address] Neutrophils/100 WBC (Bld) 70.7 % High 47-70 [facility] Comment on above: Performed By: #### L 500.2500, L100.0100, L700.6800 ####[facility] [address] [place], [address] Nucleated RBC (Bld) [#/Vol] 0 10*3/uL Normal 0-5 [facility] Comment on above: Performed By: #### L 500.2500, L100.0100, L700.6800 ####[facility] [address] [place], [address] Platelet mean volume (Bld) [Entitic vol] 10.7 fL Normal 6.2-12.0 [facility] Comment on above: Performed By: #### L 500.2500, L100.0100, L700.6800 ####[facility] [address] [place], [address] Platelets (Bld) [#/Vol] 255 10*3/uL Normal 150-450 [facility] Comment on above: Performed By: #### L 500.2500, L100.0100, L700.6800 ####[facility] [address] [place], [address] RBC (Bld) [#/Vol] 5.08 10*6/uL Normal 4.2-5.4 [facility] Comment on above: Performed By: #### L 500.2500, L100.0100, L700.6800 ####[facility] [address] [place], [address] RDW SD 39.1 fl Normal 35.1-43.9 [facility] Comment on above: Performed By: #### L 500.2500, L100.0100, L700.6800 ####[facility] [address] [place], [address] WBC (Bld) [#/Vol] 10.1 10*3/uL Normal 4.4-11.0 [facility] Comment on above: Performed By: #### L 500.2500, L100.0100, L700.6800 ####[facility] [address] [place], [address] Emergency Department Summary on 07-30-2024 Emergency Department Summary [facility] Medical Records Department [address] [place] [address] Emergency Department Summary 07/30/24 MR#: [id number] Acct: [id number] Name: JESSICA ACUNA Rep #: [id number] : 1995 29 From: Laureen Rodriges DO PCP: NP. Tia Núñez NP-C Status:DEP ER Location: ED HPI HPI - [...] She denies fevers or chills or sweats. PFSH PFS Medical History (Reviewed 12/21/22 @ 07:53 by Gianna Rob LEARNING SUPPORT TEACHER, LEARNING SUPPORT TEACHER-C) Allergic rhinitis COVID-19 affecting childbirth Environmental allergies [...] Allergy rash Verified 07/30/24 11:24 Family History (Reviewed 12/21/22 @ 07:53 by Gianna Rob LEARNING SUPPORT TEACHER, LEARNING SUPPORT TEACHER-C) Father CVA (cerebral vascular accident) Mother Intrinsic [...] intact b (more content not included)... Normal [facility] ,Serum,hCG Quali.on 07-30-2024 HCG, SERUM QUAL Negative Normal [facility] Comment on above: Performed By: #### L 500.2500, L100.0100, L700.6800 ####[facility] [address] [place], [address] Urinalysis, Completeon 07-30 BACTERIA 1+ /hpf Normal None Seen [facility] Comment on above: Order Comment: CLEAN CATCH Performed By: #### L 400.0001 ####[facility] [address] [place], [address] RBC 5-10 SEEN Normal 0-5 [facility] Comment on above: Order Comment: CLEAN CATCH Performed By: #### L 400.0001 ####[facility] [address] [place], [address] EPI,SQUAMOUS 0-5 SEEN Normal 5-10 [facility] Comment on above: Order Comment: CLEAN CATCH Performed By: #### L 400.0001 ####[facility] [address] [place], [address] Mucus Ql (Urine sed) 1+ /hpf Normal [facility] Comment on above: Order Comment: CLEAN CATCH Performed By: #### L 400.0001 ####[facility] [address] [place], [address] WBC 0 SEEN Normal 0-5 [facility] Comment on above: Order Comment: CLEAN CATCH Performed By: #### L 400.0001 ####[facility] [address] [place], [address] T4-FREE (FREE THYROXINE)on 0 06-28-2024 Free T4 [Mass/Vol] 0.87 ng/dL Normal 0.76 - 1.46 [facility] Comment on above: Result Comment: P otential of falsely elevated results when biotin concentrations are > 10ng/mL. Performed By: #### 2 29972 ####[facility],[address] [place] [address] TSHon 06-28-2024 TSH Qn 0.86 m[IU]/L Normal 0.35 - 3.74 [facility] Comment on above: Performed By: #### 2 80677 ####[facility],[address] [place] [address] CBC + DIFFon 06-17-2024 Baso # 0.03 x10EE3/UL Normal 0.00 - 0.10 [facility] Comment on above: Performed By: #### 2 16598 ####[facility],[address] [place] [address] Basophils/100 WBC (Bld) 0.4 % Normal 0.0 - 2.0 [facility] Comment on above: Performed By: #### 2 34193 ####[facility],[address] [place] [address] CBC + DIFF Normal [facility] Comment on above: Result Comment: CBC- COMPLETE BLOOD COUNT Performed By: #### 2 00440 ####[facility],[address] [place] [address] EO # 0.33 x10EE3/UL Normal 0.00 - 0.50 [facility] Comment on above: Performed By: #### 2 25868 ####[facility],[address] [place] [address] Eosinophils/100 WBC (Bld) 4.1 % Normal 0.0 - 7.0 [facility] Comment on above: Performed By: #### 2 93299 ####[facility],[address] [place] [address] Erythrocyte distribution width (RBC) [Ratio] 12.9 % Normal 12.0 - 15.6 [facility] Comment on above: Performed By: #### 2 23598 ####[facility],[address] [place] [address] Hematocrit (Bld) [Volume fraction] 41.1 % Normal 34.0 - 46.0 [facility] Comment on above: Performed By: #### 2 05852 ####[facility],[address] [place] [address] Hemoglobin (Bld) [Mass/Vol] 14.6 g/dL Normal 12.0 - 16.0 [facility] Comment on above: Performed By: #### 2 65998 ####[facility],[address] [place] [address] Lymph # 1.82 x10EE3/UL Normal 0.80 - 2.80 [facility] Comment on above: Performed By: #### 2 97845 ####[facility],[address] [place] [address] Lymphocytes/100 WBC (Bld) 22.5 % Normal 20.0 - 45.0 [facility] Comment on above: Performed By: #### 2 90232 ####[facility],[address] [place], [place] [address] MANUAL DIFF N/A Normal [facility] Comment on above: Performed By: #### 2 26595 ####[facility],[address] [place], [place] [address] MCH (RBC) [Entitic mass] 30 pg Normal 27 - 33 [facility] Comment on above: Performed By: #### 2 41070 ####[place] [address] MCHC 35 X10 3 Normal 32 - 36 [facility] Comment on above: Performed By: #### 2 41119 ####[facility],[address] [place] [address] MCV (RBC) [Entitic vol] 84 fL Normal 80 - 99 [facility] Comment on above: Performed By: #### 2 84285 ####[facility],[address] [place] [address] Simpson # 0.40 x10EE3/UL Normal 0.20 - 1.00 [facility] Comment on above: Performed By: #### 2 18050 ####[facility],[address] [place] [address] MONOS % 5.0 % Normal 0.0 - 10.0 [facility] Comment on above: Performed By: #### 2 13500 ####[facility],[address] [place] [address] Morphology Kamlesh (Bld) [Interp] N/A Normal [facility] Comment on above: Performed By: #### 2 12095 ####[facility],[address] [place] [address] Neut # 5.51 x10EE3/UL Normal 1.50 - 7.10 [facility] Comment on above: Performed By: #### 2 73401 ####[facility],[address] [place] [address] Neutrophils/100 WBC (Bld) 68.1 % Normal 46.0 - 76.0 [facility] Comment on above: Performed By: #### 2 52353 ####[facility],[address] [place] [address] PLATELET 257 x10EE3/UL Normal 150 - 450 [facility] Comment on above: Performed By: #### 2 32979 ####[facility],[address] [place] [address] Platelet mean volume (Bld) [Entitic vol] 7.9 fL Normal 6.6 - 10.5 [facility] Comment on above: Result Comment: AUTO MATED DIFFERENTIAL Performed By: #### 2 34442 ####[facility],[address] [place] [address] RBC 4.88 x 10EE6/UL Normal 4.10 - 5.30 [facility] Comment on above: Performed By: #### 2 88103 ####[facility],[address] [place] [address] WBC 8.1 x 10EE3/UL Normal 4.5 - 10.8 [facility] Comment on above: Performed By: #### 2 98510 ####[facility],[address] [place] [address] CHEST 2 VIEWSon 06-17-2024 CHEST 2 VIEWS Normal [facility] CMP with eGFRon 06-17-2024 AGE 29 years Normal [facility] Comment on above: Performed By: #### 2 58601 ####[facility],[address] [place] [address] 22582 Albumin [Mass/Vol] 3.0 g/dL Low 3.4 - 5.0 [facility] Comment on above: Performed By: #### 2 96873 ####[facility],[address] [place] [address] 69946 Albumin/Globulin [Mass ratio] 0.8 {ratio} Low 0.9 - 1.6 [facility] Comment on above: Performed By: #### 2 42280 ####[facility],[address] [place] [address] 69260 ALK PHOS 85 U/L Normal 46 - 116 [facility] Comment on above: Performed By: #### 2 97410 ####[facility],[address] [place] [address]7024 ALT [Catalytic activity/Vol] 24 U/L Normal 16 - 63 [facility] Comment on above: Performed By: #### 2 09900 ####[facility],[address] [place] [address] 29311 Anion gap [Moles/Vol] 12 mmol/L Normal 10 - 20 [facility] Comment on above: Performed By: #### 2 35899 ####[facility],[address] [place] [address] AST [Catalytic activity/Vol] 11 U/L Low 13 - 39 [facility] Comment on above: Performed By: #### 2 76914 ####[facility],[address] [place] [address]782 B/C RATIO 17 ratio Normal 0 - 30 [facility] Comment on above: Performed By: #### 2 05332 ####[facility],[address] [place] [address] 24552 Bilirubin [Mass/Vol] 0.2 mg/dL Normal 0.2 - 1.0 [facility] Comment on above: Performed By: #### 2 03647 ####[facility],[address] [place] [address] 20455 Calcium [Mass/Vol] 8.1 mg/dL Low 8.5 - 10.1 [facility] Comment on above: Performed By: #### 2 29770 ####[facility],[address] [place] [address] Chloride [Moles/Vol] 103 mmol/L Normal 98 - 107 [facility] Comment on above: Performed By: #### 2 88163 ####[facility],[address] [place] [address] 31045 CMP with eGFR Normal [facility] Comment on above: Result Comment: COMP REHENSIVE METABOLIC PANEL Performed By: #### 2 15119 ####[facility],[address] [place] [address] 55990 CO2 [Moles/Vol] 24.8 mmol/L Normal 21.0 - 32.0 [facility] Comment on above: Performed By: #### 2 83104 ####[facility],[address] [place] [address]4737 Creatinine [Mass/Vol] 0.78 mg/dL Normal 0.55 - 1.02 [facility] Comment on above: Performed By: #### 2 70369 ####[facility],[address] [place] [address]80[address] GFR/1.73 sq M.predicted among non-blacks MDRD (S/P/Bld) [Vol rate/Area] mL/min/{1.73_m2} Normal 60 - 999 [facility] Comment on above: Performed By: #### 2 30276 ####[facility],[address] [place] [address] 767[address] Result Comment: ACCO RDING TO THE NATIONAL KIDNEY DISEASE EDUCATION PROGRAM(NKDE), A NORMAL eGFRIS A VALUE GREATER THAN OR EQUAL TO 60 ML/MIN/1.73 SQ METERS.CHRONIC KIDNEY DISEASE: <60mL/MIN/1.73 SQ METERSKIDNEY FAILURE: <15mL/MIN/1.73 SQ METERSTHIS TEST SHOULD ONLY BE USED FOR PATIENTS 18 YEARS OF AGE AND OLDER. Globulin (S) [Mass/Vol] 3.8 g/dL Normal 1.5 - 3.8 [facility] Comment on above: Performed By: #### 2 84115 ####[facility],[address] [place] [address]687 Glucose [Mass/Vol] 107 mg/dL High 74 - 106 [facility] Comment on above: Performed By: #### 2 77194 ####[facility],[address] [place] [address] 38243 Potassium [Moles/Vol] 3.2 mmol/L Low 3.5 - 5.1 [facility] Comment on above: Performed By: #### 2 18396 ####[facility],[address] [place] [address] 98717 Protein [Mass/Vol] 6.8 g/dL Normal 6.4 - 8.2 [facility] Comment on above: Performed By: #### 2 15079 ####[facility],[address] [place] [address] Sodium [Moles/Vol] 137 mmol/L Normal 136 - 145 [facility] Comment on above: Performed By: #### 2 60310 ####[facility],[address] [place] [address] Urea nitrogen [Mass/Vol] 13 mg/dL Normal 7 - 18 [facility] Comment on above: Performed By: #### 2 21284 ####[facility],[address] [place] [address] C-REACTIVE PROTEINon 024 CRP 2.01 mg/dl High 0.00 - 0.90 [facility] Comment on above: Performed By: #### 2 13704 ####[facility],[address] [place] [address] CBC + DIFFon 05-16-2024 Baso # 0.02 x10EE3/UL Normal 0.00 - 0.10 [facility] Comment on above: Performed By: #### 2 69108 ####[facility],[address] [place] [address] Basophils/100 WBC (Bld) 0.3 % Normal 0.0 - 2.0 [facility] Comment on above: Performed By: #### 2 86050 ####[facility],[address] [place] [address] CBC + DIFF Normal [facility] Comment on above: Result Comment: CBC- COMPLETE BLOOD COUNT Performed By: #### 2 29988 ####[place] [address] EO # 0.19 x10EE3/UL Normal 0.00 - 0.50 [facility] Comment on above: Performed By: #### 2 91344 ####[facility],[address] [place], [place] [address] Eosinophils/100 WBC (Bld) 2.9 % Normal 0.0 - 7.0 [facility] Comment on above: Performed By: #### 2 04672 ####[facility],[address] [place] [address] Erythrocyte distribution width (RBC) [Ratio] 13.2 % Normal 12.0 - 15.6 [facility] Comment on above: Performed By: #### 2 74856 ####[facility],[address] [place] [address] Hematocrit (Bld) [Volume fraction] 43.0 % Normal 34.0 - 46.0 [facility] Comment on above: Performed By: #### 2 66784 ####[facility],[address] [place] [address] Hemoglobin (Bld) [Mass/Vol] 15.0 g/dL Normal 12.0 - 16.0 [facility] Comment on above: Performed By: #### 2 52592 ####[facility],[address] [place] [address] Lymph # 1.04 x10EE3/UL Normal 0.80 - 2.80 [facility] Comment on above: Performed By: #### 2 10369 ####[facility],[address] [place], [place] [address] Lymphocytes/100 WBC (Bld) 16.0 % Low 20.0 - 45.0 [facility] Comment on above: Performed By: #### 2 80749 ####[facility],[address] [place], [place] [address] MANUAL DIFF N/A Normal [facility] Comment on above: Performed By: #### 2 46159 ####[facility],[address] [place], [place] [address] MCH (RBC) [Entitic mass] 30 pg Normal 27 - 33 [facility] Comment on above: Performed By: #### 2 17353 ####[facility],[address] [place] [address] MCHC 35 X10 3 Normal 32 - 36 [facility] Comment on above: Performed By: #### 2 16247 ####[facility],[address] [place] [address] 19775 MCV (RBC) [Entitic vol] 85 fL Normal 80 - 99 [facility] Comment on above: Performed By: #### 2 49307 ####[facility],[address] [place] [address] Simpson # 0.27 x10EE3/UL Normal 0.20 - 1.00 [facility] Comment on above: Performed By: #### 2 91326 ####[facility],[address] [place] [address] 14760 MONOS % 4.1 % Normal 0.0 - 10.0 [facility] Comment on above: Performed By: #### 2 92854 ####[facility],[address] [place], [place] [address] Morphology Kamlesh (Bld) [Interp] N/A Normal [facility] Comment on above: Performed By: #### 2 33339 ####[facility],[address] [place] [address] 06057 Neut # 5.00 x10EE3/UL Normal 1.50 - 7.10 [facility] Comment on above: Performed By: #### 2 60095 ####[facility],[address] [place], [place] [id number] Neutrophils/100 WBC (Bld) 76.7 % High 46.0 - 76.0 [facility] Comment on above: Performed By: #### 2 05269 ####[facility],[address] [place], [place] [id number] PLATELET 241 x10EE3/UL Normal 150 - 450 [facility] Comment on above: Performed By: #### 2 13400 ####[facility],[address] [place], [place] [id number] Platelet mean volume (Bld) [Entitic vol] 8.0 fL Normal 6.6 - 10.5 [facility] Comment on above: Result Comment: AUTO MATED DIFFERENTIAL Performed By: #### 2 77832 ####[facility],[address] [place], [place] [address] RBC 5.06 x 10EE6/UL Normal 4.10 - 5.30 [facility] Comment on above: Performed By: #### 2 49651 ####[facility],[address] [place], [place] [id number] WBC 6.5 x 10EE3/UL Normal 4.5 - 10.8 [facility] Comment on above: Performed By: #### 2 12373 ####[facility],[address] [place] [address] CHEST 1 VIEWon 05-16-2024 CHEST 1 VIEW Normal [facility] CMP with eGFRon 05-16-2024 AGE 29 years Normal [facility] Comment on above: Performed By: #### 2 35678 ####[facility],[address] [place], [place] [id number] Albumin [Mass/Vol] 3.2 g/dL Low 3.4 - 5.0 [facility] Comment on above: Performed By: #### 2 44287 ####[facility],[address] [place], [place] [id number] Albumin/Globulin [Mass ratio] 0.9 {ratio} Normal 0.9 - 1.6 [facility] Comment on above: Performed By: #### 2 98135 ####[facility],[address] [place] [address] 58725 ALK PHOS 113 U/L Normal 46 - 116 [facility] Comment on above: Performed By: #### 2 34489 ####[facility],[address] [place] [address] 50290 ALT [Catalytic activity/Vol] 83 U/L High 16 - 63 [facility] Comment on above: Performed By: #### 2 12040 ####[facility],[address] [place] [address] 25883 Anion gap [Moles/Vol] 12 mmol/L Normal 10 - 20 [facility] Comment on above: Performed By: #### 2 14779 ####[facility],[address] [place] [address] 30931 AST [Catalytic activity/Vol] 37 U/L Normal 13 - 39 [facility] Comment on above: Performed By: #### 2 81338 ####[facility],[address] [place] [address] 98307 B/C RATIO 8 ratio Normal 0 - 30 [facility] Comment on above: Performed By: #### 2 98628 ####[facility],[address] [place] [address] 83777 Bilirubin [Mass/Vol] 0.4 mg/dL Normal 0.2 - 1.0 [facility] Comment on above: Performed By: #### 2 88373 ####[facility],[address] [place] [address] 11970 Calcium [Mass/Vol] 8.7 mg/dL Normal 8.5 - 10.1 [facility] Comment on above: Performed By: #### 2 27674 ####[facility],[address] [place] [address] 78714 Chloride [Moles/Vol] 102 mmol/L Normal 98 - 107 [facility] Comment on above: Performed By: #### 2 91646 ####[facility],[address] [place] [address] 68747 CMP with eGFR Normal [facility] Comment on above: Result Comment: COMP REHENSIVE METABOLIC PANEL Performed By: #### 2 03499 ####[facility],[address] [place] [address] 18507 CO2 [Moles/Vol] 25.9 mmol/L Normal 21.0 - 32.0 [facility] Comment on above: Performed By: #### 2 82391 ####[place] [address] Creatinine [Mass/Vol] 0.76 mg/dL Normal 0.55 - 1.02 [facility] Comment on above: Performed By: #### 2 46664 ####[place] [address] GFR/1.73 sq M.predicted among non-blacks MDRD (S/P/Bld) [Vol rate/Area] mL/min/{1.73_m2} Normal 60 - 999 [facility] Comment on above: Performed By: #### 2 47142 ####[place] [address] Result Comment: ACCO RDING TO THE NATIONAL KIDNEY DISEASE EDUCATION PROGRAM(NKDE), A NORMAL eGFRIS A VALUE GREATER THAN OR EQUAL TO 60 ML/MIN/1.73 SQ METERS.CHRONIC KIDNEY DISEASE: <60mL/MIN/1.73 SQ METERSKIDNEY FAILURE: <15mL/MIN/1.73 SQ METERSTHIS TEST SHOULD ONLY BE USED FOR PATIENTS 18 YEARS OF AGE AND OLDER. Globulin (S) [Mass/Vol] 3.7 g/dL Normal 1.5 - 3.8 [facility] Comment on above: Performed By: #### 2 87953 ####[place] [id number] Glucose [Mass/Vol] 130 mg/dL High 74 - 106 [facility] Comment on above: Performed By: #### 2 72493 ####[place] [id number] Potassium [Moles/Vol] 3.1 mmol/L Low 3.5 - 5.1 [facility] Comment on above: Performed By: #### 2 33329 ####[place] [phone] Protein [Mass/Vol] 6.9 g/dL Normal 6.4 - 8.2 [facility] Comment on above: Performed By: #### 2 29134 ####[facility],[address] [place] [address] Sodium [Moles/Vol] 137 mmol/L Normal 136 - 145 [facility] Comment on above: Performed By: #### 2 72744 ####[facility],[address] [place] [address] Urea nitrogen [Mass/Vol] 6 mg/dL Low 7 - 18 [facility] Comment on above: Performed By: #### 2 19064 ####[facility],[address] [place] [address] CORONAVIRUS (SARS) ANTIGEN T ESTon 05-16-2024 EXTERNAL QC DONE? YES Normal [facility] Comment on above: Performed By: #### 2 92400 ####[facility],[address] [place] [address] INTERNAL CONTROL PASS Normal [facility] Comment on above: Performed By: #### 2 93279 ####[facility],[address] [place] [address] SARS ANTIGEN Negative Normal NORMAL: NEGATIVE [facility] Comment on above: Performed By: #### 2 92747 ####[facility],[address] [place] [address] SEND TO ? YES Normal [facility] Comment on above: Result Comment: SARS -CoV-2THIS TEST IS BEING USED UNDER THE FDA EUA PROCEDURE. THIS ASSAY HAS BEENVALIDATED AT [facility] FOR USE WITH NASAL AND NASOPHARYNGEAL SWABSPECIMENS.INTERPRETIVE [...] BY HEALTHCARE PROVIDERS IN CONSULTATION WITH PUBLIC HEALTHAUTHORITIES. Performed By: #### 2 22643 ####[place] [id number] CT ABDOMEN/PELVIS [facility] 2023 CT ABDOMEN/PELVIS W Normal [facility] INFLUENZA VIRUS RAPID A/Bon 05-16-2024 INFLUENZA VIRUS RAPID A/B Normal [facility] Comment on above: Performed By: #### 2 37649 ####[address] [address] LIPASEon 05-16-2024 Lipase [Catalytic activity/Vol] 33.0 U/L Normal 15.0 - 78.0 [facility] Comment on above: Result Comment: *PLE ASE NOTE THAT RANGES FOR LIPASE HAVE CHANGED OF 09/30/23 DUE TO AN ASSAYUPDATE BY THE LIME HIDE INSPECTOR.THE NEW ASSAY RANGE IS 6-250 U/L, WITH A REFERENCERANGE OF 16-77 U/L. Performed By: #### 2 22637 ####[facility],[address] [place] [address] SERUM QUALon 05-16 EXTERNAL QC DONE? YES Normal [facility] Comment on above: Performed By: #### 2 28146 ####[facility],[address] [place] [address] INTERNAL QC PASS Normal [facility] Comment on above: Performed By: #### 2 08991 ####[facility],[address] [place] [address] SER Negative Normal NEGATIVE [facility] Comment on above: Performed By: #### 2 62048 ####[facility],[address] [place] [address] URINALYSISon 05-16-2024 Amorphous NONE Normal [facility] Comment on above: Performed By: #### 2 59219 ####[facility],[address] [place] [address] Bacteria TRACE Normal [facility] Comment on above: Performed By: #### 2 77307 ####[facility],[address] [place], [place] [phone] Bilirubin Ql (U) Negative Normal NORMAL: NEGATIVE [facility] Comment on above: Performed By: #### 2 04994 ####[facility],[address] [place], [place] [phone] Casts NONE Normal [facility] Comment on above: Performed By: #### 2 08680 ####[facility],[address] [place] [address] Clarity (U) sl.cloudy Normal NORMAL: CLEAR [facility] Comment on above: Performed By: #### 2 24405 ####[facility],[address] [place], [place] [address] Color (U) yellow Normal NORMAL: YELLOW [facility] Comment on above: Performed By: #### 2 13767 ####[facility],[address] [place] [address] 72741 Crystals LM Nom (Urine sed) NONE Normal [facility] Comment on above: Performed By: #### 2 72845 ####[facility],[address] [place] [address] 82968 Epi Cells MODERATE Normal [facility] Comment on above: Performed By: #### 2 90535 ####[facility],[address] [place] [address] 56279 Glucose Ql (U) NORM Normal NORMAL: NORMAL [facility] Comment on above: Performed By: #### 2 00465 ####[facility],[address] [place] [address] 47916 Hemoglobin Ql (U) 25 Abnormal NORMAL: NEGATIVE [facility] Comment on above: Performed By: #### 2 57895 ####[facility],[address] [place] [address] 12850 Ketone 50 Abnormal NORMAL: NEGATIVE [facility] Comment on above: Performed By: #### 2 23303 ####[facility],[address] [place] [address] 02171 Leukocytes 25 Abnormal NORMAL: NEGATIVE [facility] Comment on above: Performed By: #### 2 24604 ####[facility],[address] [place] [address] 97293 Mucous NONE Normal [facility] Comment on above: Performed By: #### 2 96176 ####[facility],[address] [place] [address] 11873 Nitrite Ql (U) Negative Normal NORMAL: NEGATIVE [facility] Comment on above: Performed By: #### 2 63578 ####[facility],[address] [place] [address] 53888 pH (U) 8 [pH] Normal NORMAL: 5.0-8.0 [facility] Comment on above: Performed By: #### 2 24497 ####[facility],[address] [place] [address] Protein Ql (U) 15 Abnormal NORMAL: NEGATIVE [facility] Comment on above: Performed By: #### 2 55452 ####[facility],[address] [place] [address] Rbc 0-5 Normal 0-3/hpf [facility] Comment on above: Performed By: #### 2 45891 ####[facility],[address] [place] [address] Sp Tatum 1.015 Normal NORMAL: 1.010-1.030 [facility] Comment on above: Performed By: #### 2 62497 ####[facility],[address] [place] [address] Specimen Type Clean catch Normal [facility] Comment on above: Performed By: #### 2 26051 ####[facility],[address] [place] [address] Urinalysis dipstick W Reflex Microscopic panel (U) SEE BELOW Normal [facility] Comment on above: Result Comment: MICR OSCOPIC Performed By: #### 2 81068 ####[facility],[address] [place] [address] Urobilinog NORM Normal NORMAL: NORMAL [facility] Comment on above: Performed By: #### 2 39168 ####[facility],[address] [place] [address] Wbc 1-5 Normal 0-5/hpf [facility] Comment on above: Performed By: #### 2 31133 ####[facility],[address] [place] [address] Yeast NONE Normal [facility] Comment on above: Performed By: #### 2 76077 ####[facility],[address] [place] [address] LYME EARLY (SIGNS/SYMP <=30 DAYS) [CCL]on 04-16-2024 REFLEX LYMEWB? NO Normal [facility] Comment on above: Performed By: #### 2 94855 ####[facility],[address] [place] [address] Lyme IgG IgM Ab Negative Normal Negative [facility] Comment on above: Result Comment: Rece nt infection with B. burgdorferi sensu lato cannot be excluded ifthe specimen collected within four weeks after the onset of signs andsymptoms or within six weeks after a known tick exposure. Clinical andepidemiological correlation is required.[facility] [place], [place] [address]Johnson Quinteros III, M.D.[id number] Performed By: #### 2 72749 ####[facility],[address] [place] [address] B. burgdorferi IgG and IgM p fredy (S)on 04-13-2024 B. burgdorferi IgG+IgM Qn (S) Negative Normal Negative [facility] Comment on above: Order Comment: Speci men Type: BLOOD SPECIMEN Ordering Facility: [facility] Address: [address] [place] [address] Result Comment: Rece nt infection with B. burgdorferi sensu lato cannot be excluded if the specimen collected within four weeks after the onset of signs and symptoms or within six weeks after a known tick exposure. Clinical and epidemiological correlation is required. Performed By: #### 3 4942-3 #### [facility] CLIA [id number] [address] [place] [address] [place] CBC + DIFFon 04-13-2024 Baso # 0.03 x10EE3/UL Normal 0.00 - 0.10 [facility] Comment on above: Performed By: #### 2 61614 ####[facility],[address] [place], [place] [address] Basophils/100 WBC (Bld) 0.4 % Normal 0.0 - 2.0 [facility] Comment on above: Performed By: #### 2 59290 ####[facility] [place] [address] 63409 CBC + DIFF Normal [facility] Comment on above: Result Comment: CBC- COMPLETE BLOOD COUNT Performed By: #### 2 94841 ####[facility],[address] [place] [address] 71098 EO # 0.29 x10EE3/UL Normal 0.00 - 0.50 [facility] Comment on above: Performed By: #### 2 74808 ####[facility],[address] [place] [address] 48461 Eosinophils/100 WBC (Bld) 4.1 % Normal 0.0 - 7.0 [facility] Comment on above: Performed By: #### 2 26862 ####[facility],[address] [place] [address] 57291 Erythrocyte distribution width (RBC) [Ratio] 13.3 % Normal 12.0 - 15.6 [facility] Comment on above: Performed By: #### 2 45552 ####[facility],[address] [place] [address] 83609 Hematocrit (Bld) [Volume fraction] 40.3 % Normal 34.0 - 46.0 [facility] Comment on above: Performed By: #### 2 41298 ####[facility],[address] [place] [address] 15624 Hemoglobin (Bld) [Mass/Vol] 13.6 g/dL Normal 12.0 - 16.0 [facility] Comment on above: Performed By: #### 2 59916 ####[facility],[address] [place] [address] 56481 Lymph # 1.64 x10EE3/UL Normal 0.80 - 2.80 [facility] Comment on above: Performed By: #### 2 57994 ####[facility],[address] [place] [address] 35565 Lymphocytes/100 WBC (Bld) 23.3 % Normal 20.0 - 45.0 [facility] Comment on above: Performed By: #### 2 50184 ####[facility],[address] [place] [address] MANUAL DIFF N/A Normal [facility] Comment on above: Performed By: #### 2 77409 ####[facility],[address] [place] [address] MCH (RBC) [Entitic mass] 29 pg Normal 27 - 33 [facility] Comment on above: Performed By: #### 2 80932 ####[facility],[address] [place] [address] MCHC 34 X10 3 Normal 32 - 36 [facility] Comment on above: Performed By: #### 2 72782 ####[facility],[address] [place] [address] MCV (RBC) [Entitic vol] 86 fL Normal 80 - 99 [facility] Comment on above: Performed By: #### 2 93199 ####[facility],[address] [place] [address] Simpson # 0.48 x10EE3/UL Normal 0.20 - 1.00 [facility] Comment on above: Performed By: #### 2 22733 ####[facility],[address] [place] [address] MONOS % 6.8 % Normal 0.0 - 10.0 [facility] Comment on above: Performed By: #### 2 33007 ####[facility],[address] [place] [address] Morphology Kamlesh (Bld) [Interp] N/A Normal [facility] Comment on above: Performed By: #### 2 54657 ####[facility],[address] [place] [address] Neut # 4.60 x10EE3/UL Normal 1.50 - 7.10 [facility] Comment on above: Performed By: #### 2 50151 ####[facility],[address] [place] [address] 07961 Neutrophils/100 WBC (Bld) 65.4 % Normal 46.0 - 76.0 [facility] Comment on above: Performed By: #### 2 09035 ####[facility],[address] [place] [address] 62685 PLATELET 261 x10EE3/UL Normal 150 - 450 [facility] Comment on above: Performed By: #### 2 48875 ####[facility],[address] [place] [address] 86317 Platelet mean volume (Bld) [Entitic vol] 8.9 fL Normal 6.6 - 10.5 [facility] Comment on above: Result Comment: AUTO MATED DIFFERENTIAL Performed By: #### 2 91260 ####[facility],[address] [place] [address] 77537 RBC 4.70 x 10EE6/UL Normal 4.10 - 5.30 [facility] Comment on above: Performed By: #### 2 91248 ####[facility],[address] [place] [address] 61760 WBC 7.0 x 10EE3/UL Normal 4.5 - 10.8 [facility] Comment on above: Performed By: #### 2 28309 ####[facility],[address] [place] [address] 12176 CMP with eGFRon 04-13-2024 AGE 29 years Normal [facility] Comment on above: Performed By: #### 2 28877 ####[facility],[address] [place] [address] 71717 Albumin [Mass/Vol] 3.1 g/dL Low 3.4 - 5.0 [facility] Comment on above: Performed By: #### 2 65269 ####[facility],[address] [place] [address] 01078 Albumin/Globulin [Mass ratio] 0.9 {ratio} Normal 0.9 - 1.6 [facility] Comment on above: Performed By: #### 2 87789 ####[facility],[address] [place] [address] 15791 ALK PHOS 96 U/L Normal 46 - 116 [facility] Comment on above: Performed By: #### 2 27144 ####[facility],[address] [place] [address] 85668 ALT [Catalytic activity/Vol] 57 U/L Normal 16 - 63 [facility] Comment on above: Performed By: #### 2 29517 ####[facility],[address] [place] [address] 53863 Anion gap [Moles/Vol] 11 mmol/L Normal 10 - 20 [facility] Comment on above: Performed By: #### 2 99465 ####[facility],[address] [place] [address] 04526 AST [Catalytic activity/Vol] 19 U/L Normal 13 - 39 [facility] Comment on above: Performed By: #### 2 41206 ####[facility],[address] [place] [address] 43218 B/C RATIO 19 ratio Normal 0 - 30 [facility] Comment on above: Performed By: #### 2 48041 ####[facility],[address] [place] [address] 61006 Bilirubin [Mass/Vol] 0.2 mg/dL Normal 0.2 - 1.0 [facility] Comment on above: Performed By: #### 2 60280 ####[facility],[address] [place] [address] 62285 Calcium [Mass/Vol] 8.5 mg/dL Normal 8.5 - 10.1 [facility] Comment on above: Performed By: #### 2 06065 ####[facility],[address] [place] [address] 27632 Chloride [Moles/Vol] 103 mmol/L Normal 98 - 107 [facility] Comment on above: Performed By: #### 2 26500 ####[facility],[address] [place] [address] 23307 CMP with eGFR Normal [facility] Comment on above: Result Comment: COMP REHENSIVE METABOLIC PANEL Performed By: #### 2 60478 ####[facility],[address] [place] [address] 20989 CO2 [Moles/Vol] 26.9 mmol/L Normal 21.0 - 32.0 [facility] Comment on above: Performed By: #### 2 23367 ####[facility],[address] [place] [address] 31246 Creatinine [Mass/Vol] 0.68 mg/dL Normal 0.55 - 1.02 [facility] Comment on above: Performed By: #### 2 79989 ####[facility],[address] [place], [place] [address] GFR/1.73 sq M.predicted among non-blacks MDRD (S/P/Bld) [Vol rate/Area] mL/min/{1.73_m2} Normal 60 - 999 [facility] Comment on above: Performed By: #### 2 37994 ####[facility],[address] [place] [address] 17145 Result Comment: ACCO RDING TO THE NATIONAL KIDNEY DISEASE EDUCATION PROGRAM(NKDE), A NORMAL eGFRIS A VALUE GREATER THAN OR EQUAL TO 60 ML/MIN/1.73 SQ METERS.CHRONIC KIDNEY DISEASE: <60mL/MIN/1.73 SQ METERSKIDNEY FAILURE: <15mL/MIN/1.73 SQ METERSTHIS TEST SHOULD ONLY BE USED FOR PATIENTS 18 YEARS OF AGE AND OLDER. Globulin (S) [Mass/Vol] 3.5 g/dL Normal 1.5 - 3.8 [facility] Comment on above: Performed By: #### 2 95022 ####[facility],[address] [place] [address] 90208 Glucose [Mass/Vol] 97 mg/dL Normal 74 - 106 [facility] Comment on above: Performed By: #### 2 27484 ####[address] [address] Potassium [Moles/Vol] 3.1 mmol/L Low 3.5 - 5.1 [facility] Comment on above: Performed By: #### 2 69825 ####[place] [id number] Protein [Mass/Vol] 6.6 g/dL Normal 6.4 - 8.2 [facility] Comment on above: Performed By: #### 2 05976 ####[place] [id number] Sodium [Moles/Vol] 138 mmol/L Normal 136 - 145 [facility] Comment on above: Performed By: #### 2 39296 ####[place] [id number] Urea nitrogen [Mass/Vol] 13 mg/dL Normal 7 - 18 [facility] Comment on above: Performed By: #### 2 61949 ####[address] [address] FERRITINon 04-13-2024 Ferritin [Mass/Vol] 52 ng/mL Normal 8 - 388 [facility] Comment on above: Performed By: #### 2 48235 ####[address] [address] T4-FREE (FREE THYROXINE)on 0 04-13-2024 Free T4 [Mass/Vol] 0.89 ng/dL Normal 0.76 - 1.46 [facility] Comment on above: Result Comment: P otential of falsely elevated results when biotin concentrations are > 10ng/mL. Performed By: #### 2 06514 ####[address] [address] TSHon 04-13-2024 TSH Qn 0.43 m[IU]/L Normal 0.35 - 3.74 [facility] Comment on above: Performed By: #### 2 66461 ####[address] [address] VITAMIN D, 25 HYDROXYon 04-02 VitD 16.20 ng/mL Low 30.00 - 100 [facility] Comment on above: Result Comment: 25-O HD3 [...] D2 Not Established Performed By: #### 2 62530 ####[address] [address] BLOOD TB SCREEN, INCUBATEDon 08-31-2023 M. tuberculosis tuberculin stim IFN-g Ql (Bld) Negative Normal [facility] Comment on above: Order Comment: Speci men Type: BLOOD SPECIMEN Ordering Facility: [facility] Address: [address] [place] [address] Performed By: #### I NTPGP #### [facility] CLIA [id number] [address] [place] [address] [place] MITOGEN MINUS NIL >9.97 Normal >=0.50 [facility] Comment on above: Order Comment: Speci men Type: BLOOD SPECIMEN Ordering Facility: [facility] Address: [address] [place] [address] Performed By: #### I NTPGP #### [facility] CLIA [id number] [address] [place] [address] [place] TB GAMMA INTERPRETATION Infection with M . tuberculosis complex is unlikely. If latent tuberculosis infection is highly suspected, a negative result does not rule out the infection. Specimens from immunocompromised patients and those <5 years of age may show false negative results. In case of a contact investigation, please repeat 8-12 weeks after a known exposure. Normal [facility] Comment on above: Order Comment: Speci men Type: BLOOD SPECIMEN Ordering Facility: [facility] Address: [address] [place] [address] Performed By: #### I NTPGP #### [facility] CLIA [id number] [address] [place] [address] [place] TB NIL 0.03 IU/mL Normal <=8.00 [facility] Comment on above: Order Comment: Speci men Type: BLOOD SPECIMEN Ordering Facility: [facility] Address: [address] [place] [address] Performed By: #### I NTPGP #### [facility] CLIA [id number] [address] [place] [address] [place] TB1 AG MINUS NIL 0.00 IU/mL Normal <0.35 [facility] Comment on above: Order Comment: Speci men Type: BLOOD SPECIMEN Ordering Facility: [facility] Address: [address] [place] [address] Performed By: #### I NTPGP #### [facility] CLIA [id number] [address] [place] [address] [place] TB2 AG MINUS NIL 0.00 IU/mL Normal <0.35 [facility] Comment on above: Order Comment: Speci men Type: BLOOD SPECIMEN Ordering Facility: [facility] Address: [address] [place] [address] Performed By: #### I NTPGP #### [facility] CLIA [id number] [address] [place] [address] [place] HBV surface Ab Ql (S)on 08-04 HBV surface Ab Qn (S) <8.00 Normal [facility] Comment on above: Order Comment: Speci men Type: BLOOD SPECIMEN Ordering Facility: [facility] Address: [address] [place] [address] Result Comment: <8 m IU/mL: No serological evidence of immunity to Hepatitis B Virus. >/= 8 to <12 mIU/mL: No serological evidence of immunity to Hepatitis B Virus. >/= 12 mIU/mL: Consistent with serological evidence of immunity to Hepatitis B Virus. Performed By: #### M UMPSG, 27327-5 #### [facility] CLIA [id number] [address] [place] [address] [place] HBV surface Ab Ser Qlon 08-04 HBV surface Ab Ql (S) Negative Normal [facility] Comment on above: Order Comment: Speci men Type: BLOOD SPECIMEN Ordering Facility: [facility] Address: [address] [place] [address] Result Comment: No s erological evidence of immunity to Hepatitis B Virus. Performed By: #### M UMPSG, 06699-7 #### [facility] CLIA [id number] [address] [place] [address] [place] MUMPS IGG ABon 08-31-2023 MuV IgG Ql (S) Positive Normal Positive [facility] Comment on above: Order Comment: Trevori dominick Type: BLOOD SPECIMEN [facility] Hospital Address: [address] [place] [address] Result Comment: The result suggests recent or past exposure to Mumps virus or Mumps vaccination. The current test does not detect neutralizing antibodies. Positive result may also be seen due to presence of passively-transferred antibodies. Please correlate with patient's history. Performed By: #### M UMPSG, [id number] #### [facility] CLIA [id number] [address] [place] [address] [place] RUBELLA IGG ABon 08-31-2023 RUBELLA IGG AB, QUAL Positive Normal Positive [facility] Comment on above: Order Comment: Speci men Type: BLOOD SPECIMEN Ordering Facility: [facility] Address: [address] [place] [address] Result Comment: The result suggests recent or past exposure to Rubella virus or history of Rubella vaccination. Positive result may also be seen due to presence of passively-transferred antibodies. Please correlate with patient's history. Performed By: #### R UBIGG #### [facility] CLIA [id number] [facility] [place] [address] [place] RUBEOLA (MEASLES)IGGon 08-31 MEASLES IGG AB, QUAL Positive Normal Positive [facility] Comment on above: Order Comment: Speci men Type: BLOOD SPECIMEN Ordering Facility: [facility] Address: [address] [place] [address] Result Comment: The result suggests recent or past exposure to Measles virus or Measles vaccination. The current test does not detect neutralizing antibodies. Positive result may also be seen due to presence of passively-transferred antibodies. Please correlate with patient's history. Performed By: #### M EASLG #### [facility] CLIA [id number] [facility] [address] OF [place] CNOVon 08-09-2023 CNOV Office Visit (OBGYWM ) -------- JESSICA ACUNA ([id number]) 1995 F Date Time Provider Department 08/09/23 11:00 AM TIFFANIE SCHMIDT OBVIANEY During your visit today, we recorded the following information about you: Blood pressure Weight Height 128/98 143.3 kg 1.676 m Tiffanie Schmidt APRN.INSEAM LEVELER 08/09/2023 11:46 AM Signed School Bus Monitor offered: Patient declines. Accompanied by mother. Jessica [...] L0 SAB0 IAB0 Ectopic0 Multiple0 Live Births0 Corporate Ethics Officer History LMP: 09/26/2021, IUD Age at Menarche: Age at First : Age at Menopause: Corporate Ethics Officer History Comments: Sexual Activity: Yes; Male Contraception: [...] external genitalia normal, normal Bartholin's glands, urethra, [place]'s glands, no vulvar lesions, no cervical lesions, [...] year or sooner as needed Tiffanie Schmidt APRN.Tiffanie Haney APRN.CNP 08/09/2023 11:11 AM Signed See PCP - Elevated BP Cymbalta - bupropion will help you control cravings but your BP has to be well-controlled. Fluoxetine and sertraline can be weight variable in some people. (more content not included)... Normal [facility] PAP TESTon 08-09-2023 ADEQUACY Satisfactory for interpretation Normal [facility] Comment on above: Order Comment: Speci men Type: FLUID SPECIMEN Ordering Facility: [facility] Address: [address] [place] [address] [place] [address] Performed By: #### L [id number] #### [facility] CLIA [id number] [address] [place] [address] [place] CASE REPORT Normal [facility] Comment on above: Order Comment: Speci men Type: FLUID SPECIMEN Ordering Facility: [facility] Address: [address] [place] [address] Result Comment: Gyne cologic Cytology Report Case: [id number] Authorizing Provider: Tiffanie Schmidt APRN.INSEAM LEVELER Collected: 08/09/2023 11:53 AM Ordering Location: OB/Gynecology Received: 08/09/2023 12:53 PM First Screen: [place], [place], CT, ASCP Specimen: Pap Test, ThinPrep, Cervix Performed By: #### L [id number] #### [facility] CLIA [id number] [address] [place] [address] [place] CLINICAL HISTORY, CYTOLOGY, COMMUNITY HEALTH NAVIGATOR Routine Exam Normal [facility] Comment on above: Order Comment: Speci men Type: FLUID SPECIMEN Ordering Facility: [facility] Address: [address] [place] [address] Performed By: #### L [id number] #### [facility] CLIA [id number] [address] [place] [address] [place] FINAL PERFORMING LAB Normal [facility] Comment on above: Order Comment: Speci men Type: FLUID SPECIMEN Ordering Facility: [facility] Address: [address] [place] [address] Result Comment: Tech nical component, design analyst screening performed at [facility], [address] [place], [place] [id number] CLIA# [id number] Diagnostic interpretation performed at [facility], [address] [place], [place] [id number] CLIA# [id number] Timber Buyer: Johnson Quinteros M.D. Performed By: #### L [id number] #### [facility] CLIA [id number] [address] [place] [address] [place] HPV REFLEX HPV if Atypical Normal [facility] Comment on above: Order Comment: Speci men Type: FLUID SPECIMEN Ordering Facility: [facility] Address: [address] [place] [address] Performed By: #### L [id number] #### [facility] CLIA [id number] [address] [place] [address] [place] INTERPRETATION, CYTOLOGY, COMMUNITY HEALTH NAVIGATOR Normal [facility] Comment on above: Order Comment: Speci men Type: FLUID SPECIMEN Ordering Facility: [facility] Address: [address] [place] [address] Result Comment: Nega tive for intraepithelial lesion or malignancy. Performed By: #### L [id number] #### [facility] CLIA [id number] [address] [place] [address] [place] LMP 09/26/2021 Normal [facility] Comment on above: Order Comment: Speci men Type: FLUID SPECIMEN Ordering Facility: [facility] Address: [address] [place] [address] Performed By: #### L [id number] #### [facility] CLIA [id number] [facility] [place] [address] [place] PAP DISCLAIMER COMMENT The Pap Smear is a screening test for cervical cancer. False negative results occur with all screening tests, emphasizing the need for rescreening at recommended intervals, and clinical correlation. Normal [facility] Comment on above: Order Comment: Speci men Type: FLUID SPECIMEN Ordering Facility: [facility] Address: [address] [place] [address] Performed By: #### L [id number] #### [facility] CLIA [id number] [address] [place] [id number] [place] PAP PORTER BAGGAGE COMMENT This specimen has be en analyzed by the ThinPrep Imaging System, an automated imaging and review system, which assists the laboratory in evaluating cells on ThinPrep Pap tests. Following automated imaging, selected anderson from every slide are reviewed by a design analyst. Normal [facility] Comment on above: Order Comment: Speci men Type: FLUID SPECIMEN Ordering Facility: [facility] Address: [address] [place] [address] Performed By: #### L [id number] #### [facility] CLIA [id number] [address] [facility] [id number] [address] [place] US FEMALE PELVIS [...] and stored in a permanent archive. MQ: P_2021 COMPARISON: 11/02/2021 RESULT: Exam limited due to [...] Partially visualized IUD. Simple follicular cysts bilaterally Resident Engineer: ALEX Transcribe Date/Time: Jul 18 2023 3:31P Dictated by : HUEY LAWLER MD This examination was interpreted and the report reviewed and electronically signed by: HUEY LAWLER MD on Jul 18 2023 3:35PM EST [id number] Normal [facility] HCG ( test) Ql (U)O rdered By: Mary Kate Brody on 06-28-2023 Beta HCG ( test) Ql Negative Negative [facility] Interpretation and review of laboratory results Normal [facility] HCG QUALITATIVE, URINEon Beta HCG ( test) Ql (U) Negative Normal Negative [facility] Comment on above: Performed By: #### U HCG #### [facility] (DEFAULT) [address] Unspecified body region d uring surgeryOrdered By: Unassigned Pacs on 06-28-2023 [facility] Work Phone: [place] Unspecified body region d uring surgeryon 06-28-2023 Radiology Study observation (narrative) [facility] CT HIP RIGHT WITHOUT CONTRAS T [...] No pathologically enlarged lymph nodes within the [id number]. Intrauterine device is in place within the [...] and acetabular version measurements given above. Normal [facility] CNPNon 06-14-2023 MERRY Telephone (KARMENGYWM) -------- JESSICA ACUNA ([id number]) 1995 F Date Time Provider Department 06/14/23 TIFFANIE SCHMIDT During your visit today, we recorded the following information about you: Danna Rosado RN 06/14/2023 3:04 PM Signed Patient states she went to the bathroom and when she wiped she could feel her IUD strings. Having spotting and left sided pelvic pain. Pain rate of 7 out of 10. Patient does not live in [place] and plans to go to local ER. [...] care everywhere it shows patient went to [facility] on 06/14[facility]23, but can only see lab results. Requested records from [facility]. Myla Sawyer RN, RN 06/17/2023 3:55 PM Signed Records received from [facility] and spoke to patient. She did not [...] ultrasound ordered for pain and IUD localization. Tiffanie Schmidt APRN.Danna Muse RN 06/17/2023 4:41 PM Signed Soonest appointment [...] in place [Z97.5] Order(s):US FEMALE PELVIS TRANSVAG [[id number]] Order #: [id number] FUTURE Prescriptions as of 06/17/2023 - DULoxetine [...] by DANNA ROSADO RN on 06/17/23 Normal [facility] XR HIP RIGHT 4 VIEWSon 05-09 XR [...] osseous abnormality in the right hip. Normal [facility] Basic metabolic 2000 panelon 10-28-2022 Anion gap [Moles/Vol] 10 mmol/L 9 - 18 mmol/L [facility] Calcium [Mass/Vol] 9.0 mg/dL 8.5 - 10. 2 mg/dL [facility] Chloride [Moles/Vol] 103 mmol/L 97 - 10 5 mmol/L [facility] CO2 [Moles/Vol] 23 mmol/L 22 - 30 mmol/L [facility] Creatinine [Mass/Vol] 0.87 mg/dL 0.58 - 0.96 mg/dL [facility] Estimated Glomerular Filtration Rate 93 mL/min/1.73m >=60 mL/min/1.73 m [facility] Glucose [Mass/Vol] 108 mg/dL High 74 - 99 mg/dL [facility] Potassium [Moles/Vol] 3.8 mmol/L 3.7 - 5.1 mmol/L [facility] Sodium [Moles/Vol] 136 mmol/L 136 - 144 mmol/L [facility] Urea nitrogen [Mass/Vol] 15 mg/dL 7 - 21 mg/dL [facility] CBC W Auto Differential pane l (Bld)on 10-28-2022 Basophils (Bld) [#/Vol] 0.10 10*3/uL <0.11 k/uL [facility] Basophils/100 WBC (Bld) 1.0 % C [facility] Differential cell count method Nom (Bld) Auto [facility] Eosinophils (Bld) [#/Vol] 0.30 10*3/uL <0.46 k/uL [facility] Eosinophils/100 WBC (Bld) 3.1 % [facility] Erythrocyte distribution width (RBC) [Ratio] 12.7 % 11.5 - 15.0 % [facility] Hematocrit (Bld) [Volume fraction] 42.9 % 36.0 - 46.0 % [facility] Hemoglobin (Bld) [Mass/Vol] 15.1 g/dL 11.5 - 15.5 g/dL [facility] Immature granulocytes (Bld) [#/Vol] 0.03 10*3/uL <0.10 k/uL [facility] Immature granulocytes/100 WBC (Bld) 0.3 % [facility] Lymphocytes (Bld) [#/Vol] 2.03 10*3/uL 1.00 - 4.00 k/uL [facility] Lymphocytes/100 WBC (Bld) 21.1 % [facility] MCH (RBC) [Entitic mass] 29.2 pg 26.0 - 34.0 pg [facility] MCHC (RBC) [Mass/Vol] 35.2 g/dL 30.5 - 36.0 g/dL [facility] MCV (RBC) [Entitic vol] 82.8 fL 80.0 - 100.0 fL [facility] Monocytes (Bld) [#/Vol] 0.60 10*3/uL <0.87 k/uL [facility] Monocytes/100 WBC (Bld) 6.2 % C [facility] Neutrophils (Bld) [#/Vol] 6.57 10*3/uL 1.45 - 7.50 k/uL [facility] Neutrophils/100 WBC (Bld) 68.3 % [facility] Nucleated RBC (Bld) [#/Vol] <0.01 k/uL [facility] Nucleated RBC/100 WBC (Bld) [Ratio] 0.0 /100 WBC [facility] Platelet mean volume (Bld) [Entitic vol] 10.3 fL 9.0 - 12.7 fL [facility] Platelets (Bld) [#/Vol] 272 10*3/uL 150 - 400 k/uL [facility] RBC (Bld) [#/Vol] 5.18 10*6/uL 3.90 - 5.2 0 m/uL [facility] WBC (Bld) [#/Vol] 9.63 10*3/uL 3.70 - 11.00 k/uL [facility] CNPNon 07-05-2022 CNPN Telephone (AGSPINE3) -------- JESSICA ACUNA ([id number]) 1995 F Date Time Provider Department 07/05/22 MARKOS OVERTON AGSPINE3 During your visit today, we recorded the following information about you: Angélica Vega 07/05/2022 3:08 PM Signed ----- Message from [...] to know if the [facility] [place] [facility] the correct place where she should be scheduling or if she needs to [facility]. Was Patient Referred to [facility]/Seek Emergency Treatment (Y/N): N Did Patient Agree (Y/N): na Was An Attempt Made To Transfer The Patient To The Office (Y/N): N Were You Able To Reach Someone At The Office (Y/N): na If Yes - Patient Was Transferred To (Caregivers Name): na If No - Which [facility] Leadership Business Division Chair Did You Speak With Regarding This Patient: na Was an appointment scheduled (Y/N): N Reason patient was requesting visit (RFV/signs and symptoms/diagnosis) : Referral Question Person calling if other than patient: Patient Return call to if other than patient: na Best contact number: [phone] Thank you, Daylin Ramos July 05, 2022 2:30 PM [facility] 07/05/2022 3:09 PM Signed Patient would like to schedule with Dr Overton in [place] Angélica [place] [facility] [address] [place] [address] P: [phone] F: [phone] [email or web address] [email or web address] As of Date: 07/05/2022 Noted Allergy [...] Encounter Status:Closed by ANGÉLICA VEGA on 07/05/22 [facility] CNOVon 06-18-2022 CNOV Office Visit (ORFWHP ) -------- JESSICA ACUNA ([id number]) 1995 F Date Time Provider Department 06/18/22 [...] symptoms Social History: Tobacco Use: Never 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 Resident Engineer: ALEX Transcribe Date/Time: Jun 03 2022 9:50A [...] Specifically for her we will need a Browder table and this will need to be done at the hospital. We will need Tena AND Nephtamanna extended (more content not included)... Normal [facility] MRI HIP WO IVCON RTon 2021 [facility] Basophil percentageon 2021 Basophil percentage 0 SEEN /hpf 0-5 [facility] Work Phone: Bilirubin Test strip Ql (U)o n 03-22-2022 Bilirubin Ql (U) Negative Negative [facility] Work Phone: Ketones Test strip Ql (U)on 03-22-2022 Ketones Ql (U) Negative Negative [facility] Work Phone: Laboratory - Chemistry and C hemistry - challengeon 03-22-2022 HCG ( test) Ql (U) Negative [facility] Work Phone: Comment on above: Very dilute urine sp ecimens, as indicated by a low specificgravity, may not contain sales representative metals levels of hCG. If is still suspected, a first morning urinespecimen should be collected 48 hours later and tested. Mucus LM Ql (Urine sed)on Mucus Ql (Urine sed) 0 SEEN /hpf [facility] Work Phone: Nitrite Test strip Ql (U)on 03-22-2022 Nitrite Ql (U) Negative Negative [facility] Work Phone: Protein Test strip Ql (U)on 03-22-2022 Protein Ql (U) Negative Negative [facility] Work Phone: Squamous epithelial cells de tection in urine sediment by light microscopyon 03-22-2022 Epithelial cells.squamous LM Ql (Urine sed) 0-5 SEEN /hpf 5-10 [facility] Work Phone: Urine blood detectionon 03-04 RBC Ql (U) 10 /ul Negative [facility] Work Phone: RBC Ql (U) 0-5 SEEN /hpf 0-5 [facility] Work Phone: Urine clarityon 03-22-2022 Clarity (U) Sl. Cloudy Clear [facility] Work Phone: Urine color determinationon 03-22-2022 Color (U) Yellow Yellow [facility] Work Phone: Urine glucose detectionon Glucose Ql (U) Normal mg/dl Normal [facility] Work Phone: Urine leukocyte esterase det ection by dipstickon 03-22-2022 Leukocyte esterase Test strip Ql (U) Negative Negative [facility] Work Phone: Urine pHon 03-22-2022 pH (U) 7.0 [pH] 5.0 - 8.0 [facility] Work Phone: Urine sediment bacteria coun t by microscopy (number/high power field)on 03-22-2022 Bacteria LM.HPF (Urine sed) [#/Area] 0 /[HPF] None Seen [facility] Work Phone: Urine specific gravity measu rementon 03-22-2022 Specific gravity (U) [Rel density] 1.010 1.002-1.030 [facility] Work Phone: Urobilinogen Auto test strip Ql (U)on 03-22-2022 Urobilinogen Ql (U) Normal mg/dl Normal [facility] Work Phone: B TestoSHBG,femmelo 04-15 Sex Hormon Bind Glb 69 nmol/L Normal 30-135 [facility] [place] [facility] Reference Lab Comment on above: Performed By: #### P ROL #### [facility] Routine Lab [address] [place] [phone] #### [id number] #### [facility] Chemistry [address] [place] [phone] Testos Bioavail 9.4 ng/dL Normal 2.2-20.6 [facility] Reference Lab Comment on above: Performed By: #### P ROL #### [facility] Routine Lab [address] [place] [phone] #### 125VTD #### [facility] Chemistry [address] [place] [phone] Testosterone [Mass/Vol] 34 ng/dL Normal 9-55 C [facility] Reference Lab Comment on above: Performed By: #### P ROL #### [facility] Routine Lab [address] [place] [phone] #### 125VTD #### [facility] Chemistry [address] [place] [phone] Testosterone Free 3.6 pg/mL Normal 0.8-7.4 [facility] Reference Lab Comment on above: Performed By: #### P ROL #### [facility] Routine Lab [address] [place] [phone] #### 125VTD #### [facility] Chemistry [address] [place] [phone] VitD, 1,25 Dihydroxyon 04-14 1,25 Dihydroxy VitD2 <4.0 Normal [facility] Reference Lab Comment on above: Performed By: #### P ROL #### [facility] Routine Lab [address] [place] [phone] #### 125VTD #### [facility] Chemistry [address] [place] [phone] 1,25 Dihydroxy VitD3 60.9 pg/mL Normal [facility] Reference Lab Comment on above: Performed By: #### P ROL #### [facility] Routine Lab [address] [place] [phone] #### 125VTD #### [facility] Chemistry [address] [place] [phone] Vit D,1,25 DiOH High 15.0-60.0 [facility] Reference Lab Comment on above: Result Comment: 60.9 This test was developed and its performance characteristics determined by [facility]'s Nikky Rolanda [facility] Pathology and Laboratory [facility] [place] ([facility] It has not been cleared or approved by the FDA. [facility] is regulated under CLIA as qualified to perform high complexity testing. This test is used for clinical purposes. It should not be regarded as investigational or for research. Performed By: #### P ROL #### [facility] Routine Lab [address] [place] [phone] #### 125VTD #### [facility] Chemistry [address] [place] [phone] HydroxyProgesteroneon 2020 HydroxyProgesterone 16.70 ng/dL Normal <=206.00 [facility] Reference Lab Comment on above: Performed By: #### P ROL #### [facility] Routine Lab [address] [place] [phone] #### 125VTD #### [facility] Chemistry [address] [place] [phone] Androstenedioneon 04-10-2021 Androstenedione 1.6 ng/mL Normal 0.3-3.3 [facility] Reference Lab Comment on above: Performed By: #### A NDROS #### [facility] Immuno Assay [address] [place] [phone] DHEA-Son 04-09-2021 DHEA-S 242.4 ug/dL Normal 98.8-340.0 [facility] Reference Lab Comment on above: Performed By: #### D HEAS #### [facility] Laboratories Routine Lab [address] [place], [place] [address] Hemoglobin A1con 04-09-2021 Glucose [Mass/Vol] 111 mg/dL Normal [facility] Reference Lab Comment on above: Performed By: #### H BA1C #### [facility] Routine Lab [address] [place], [place] [address] HbA1c (Bld) [Mass fraction] 5.5 % Normal 4.3-5.6 [facility] Reference Lab Comment on above: Performed By: #### H BA1C #### [facility] Routine Lab [address] [place] [address] Prolactinon 04-09-2021 Prolactin 16.0 ng/mL Normal 4.5-26.8 [facility] Reference Lab Comment on above: Performed By: #### P ROL #### [facility] Routine Lab [address] [place] [address] #### 125VTD #### [facility] Chemistry [address] [place] [phone] Final Surgical Pathology Rep [facility] 11-07-2020 Final Surgical Pathology Report . Pathology Reports Accession: Collected Date/Time: Received Date/Time: Pathologist: [id number] 11/05/2020 12:05 EST 11/06/2020 09:08 TONY SHEA MD Final Surgical Pathology Report DIAGNOSIS: GALLBLADDER, CHOLECYSTECTOMY SPECIMEN: MILD CHRONIC CHOLECYSTITIS. COMMENT: [id number] - [id number] CLINICAL INFORMATION: BILIARY DYSKINESIA SPECIMEN: A GALLBLADDER GROSS DESCRIPTION: A. Received in formalin, labeled with the patients name, Case #[id number], and gallbladder Dimensions-6.3 x 3 x 1.6 cm Cystic duct/pericystic duct lymph node-patent, no lymph node Serosal hiogtdr-wtlacen-xblzxi, smooth with a hepatic bed defect measuring 1.5 x 1.2 cm Luminal contents-green liquid bile and no calculi Mucosal surface-hector -green, velvety with yellow specks throughout Wall thickness-0.3 cm RS- 1 Dictated by NIKKY DEAN MICROSCOPIC DESCRIPTION: Slides reviewed. Electronically Signed by Pathology Report verified by [facility] Electronically signed by TONY HOWARD Sign out Date: 11/07/2020 15:22 Performing Lab: [facility], [address] [place] [id number] [place] [address] Normal [facility] ([place]) Comment on above: Performed By: #### S PFR #### [address] [address] BHCG (URINE)on 10-07-2017 HCG.beta subunit ( test) Ql (U) Negative Normal NEGATIVE [facility] Comment on above: Result Comment: Seru m Test is more Sensitive than a UrinePregnancy Test. Please Note Threshold Values: SERUM - 10mlU/mL URINE - 20mlU/mL Performed By: #### L 200.4105 ####ML - [id number] [place] [address] OPERATIVE NOon 10-07-2017 OPERATIVE NO HNO ID: [id number]: Alesia Ross: (none)Author Type: PhysicianType: Operative ReportFiled: 08/03/2018 1:29 PMNote Text:[place] [address]WLWUBX INFORMATION MANAGEMENTOPERATIVE REPORTPatient: SOHAIL ACUNA AND REW W D.[id number] FStatus: [facility] AMBDATE OF [id number]/07/2017HISTORY OF PRESENT ILLNESSA 22-year-old female had been a patient in the office as well as seenmultiple podiatrists for chronic plantar fasciitis. The right foot isworse than the left. I have reviewed and obtained signed consent for aninstep plantar fasciotomy of the right foot. The patient had anessentially normal CBC recently drawn, and I had her get x-rays [facility] preoperatively which showed that there is just [...] with a 15 blade. This was cut longterm across. It was quite thick.Once we released [...] signs stable and vascular status intact to [facility] lower extremity. The patient will be discharged per anesthesia andgiven home going instructions. 10/20/17 0638 STACIA WALKER D.P.M.cc: CHINYERE HYDE,SHADI Bingham M.D.; ALESIA WALKER D.P.M. << Signature on File>> Reported By: ALESIA WALKER D.P.M. Signed By: ALESIA WALKER D.P.M.Tests performed at:[facility] [place], [place] [phone] Normal [facility] OPERATIVE REPORTon 8 OPERATIVE REPORT [place], [place] [id number] INFORMATION MANAGEMENTOPERATIVE REPORTPatient: SOHAIL ACUNA AND REW W D.P.M.[id number] 22 FStatus: [facility] AMBDATE OF AUPGWAD1510/07/2017HISTORY OF PRESENT ILLNESSA 22-year-old female had been a patient in the office as well as seen multiple podiatristsfor chronic plantar fasciitis. The right foot is worse than the left. I have reviewed andobtained signed consent for an instep plantar fasciotomy of the right foot. The patienthad an essentially normal CBC recently drawn, and [facility] is [...] cut with a 15blade. This was cut longterm across. It was quite thick. Once we [...] D.P.M. Signed By: ALESIA WALKER D.P.M.Tests performed at:[address] [phone] Normal [facility] HISTORY PHYSICALon 8 HISTORY PHYSICAL HNO ID: [id number]: Alesia WalkerService: (none)Author Type: PhysicianType: HANDPFiled: 08/03/2018 1:22 PMNote Text:[place], [place] [id number] INFORMATION MANAGEMENTSURGICAL HISTORY AND PHYSICALPatient: SOHAIL SNELL ANDR EW W D.P.M.[id number] FStatus: PRE SDC AMBDATE OF OBVRRJZXW49/05/2018HISTO RY OF PRESENT ILLNESSThis 22 year-old female [...] had.Her grandpa had hypertension, hypercholesterolemia and previous DE.Mother has asthma. Mother and grandma have arthritis.SOCIAL [...] the chart, because the patient [place] I [place] not [place]. Pt. has recently [facility] showing plantarspur without any fractures, bony tumors, [...] ordered. Pt. to get the CBC at [facility].6. All questions of the patient [...] plantar fasciotomy of the right foot at [facility] on10/07/2017. ALESIA WALKER D.P.M.cc: SHADI WHITLOCK III, M.D.; ALESIA WALKER D.P.M. << Signature on File>> Reported By: ALESIA WALKER D.P.M. Signed By: ALESIA WALKER D.P.M.Tests performed at:[address] [phone] Normal [facility] SURGICAL HISTORY AND PHYSICA Ronen 10-05-2017 SURGICAL HISTORY AND PHYSICAL [place], [place] [id number] INFORMATION MANAGEMENTSURGICAL HISTORY AND PHYSICALPatient: SOHAIL SNELL ANDR EW W D.P.M.[id number] FStatus: PRE SDC AMBDATE OF AENWYWAUD19/05/2018HISTO RY OF PRESENT ILLNESSThis 22 year-old female [...] had. Her grandpa hadhypertension, hypercholesterolemia and previous DE. Mother has asthma. Mother and grandmahave arthritis.SOCIAL [...] the chart, because the patient is a [place] I do nothave x-rays out in [place]. Pt. has recently had x-rays at [facility] showingplantarspur without any fractures, bony tumors, or [...] x-ray ordered. Pt. toget the CBC at [facility].6. All questions of the patient [...] plantar fasciotomy of the right foot at [facility] on 10/07/2017. ALESIA WALKER D.P.M.cc: SHADI WHITLOCK III, M.D.; ALESIA WALKER D.P.M. << Signature on File>> Reported By: ALESIA WALKER D.P.M. Signed By: ALESIA WALKER D.P.M.Tests performed at:[address] [phone] Normal [facility] Bronchoalveolar lavage cultu re with Gram stain Respiratory microbial culture or Staphylococcus aureus isolated. [facility] Work Phone: Gram stain for investigation of transfusion reaction Microscopic observation Gram stain Nom (Unsp spec) [facility] Work Phone: Vital Signs Date Time Vital Sign Value Performing Clinician Facility 05-13-2025 10:56-0400 Body height 167.64 cm Tia Núñez LEARNING SUPPORT TEACHER-C Work Phone: [facility] 05-13-2025 10:56-0400 Body mass index (BMI) [Ratio] 52.7 kg/m2 Tia Núñez LEARNING SUPPORT TEACHER-C Work Phone: [facility] 05-13-2025 10:56-0400 Body temperature 98 [degF] Tia Núñez LEARNING SUPPORT TEACHER-C Work Phone: [facility] 05-13-2025 10:56-0400 Body weight 148.32 kg Tia Núñez LEARNING SUPPORT TEACHER-C Work Phone: [facility] 05-13-2025 10:56-0400 Diastolic blood pressure 80 mm[Hg] Tia Ungerer LEARNING SUPPORT TEACHER-C Work Phone: [facility] 05-13-2025 10:56-0400 Heart rate 103 /min Tia Ungerer LEARNING SUPPORT TEACHER-C Work Phone: [facility] 05-13-2025 10:56-0400 Respiratory rate 16 /min Tia Ungerer LEARNING SUPPORT TEACHER-C Work Phone: [facility] 05-13-2025 10:56-0400 SaO2% (BldA) [Mass fraction] 99 % Tai Ungerer LEARNING SUPPORT TEACHER-C Work Phone: [facility] 05-13-2025 10:56-0400 Systolic blood pressure 130 mm[Hg] Tia Ungerer LEARNING SUPPORT TEACHER-C Work Phone: [facility] 03-15-2025 13:49-0400 Body height 167.64 cm Tia Ungerer LEARNING SUPPORT TEACHER-C Work Phone: [facility] 03-15-2025 13:49-0400 Body temperature 98.2 [degF] Tia Ungerer LEARNING SUPPORT TEACHER-C Work Phone: [facility] 03-15-2025 13:49-0400 Diastolic blood pressure 82 mm[Hg] Tia Ungerer LEARNING SUPPORT TEACHER-C Work Phone: [facility] 03-15-2025 13:49-0400 Heart rate 88 /min Tia Ungerer LEARNING SUPPORT TEACHER-C Work Phone: [facility] 03-15-2025 13:49-0400 Respiratory rate 18 /min Tia Ungerer LEARNING SUPPORT TEACHER-C Work Phone: [facility] 03-15-2025 13:49-0400 SaO2% (BldA) [Mass fraction] 96 % Tia Ungerer LEARNING SUPPORT TEACHER-C Work Phone: [facility] 03-15-2025 13:49-0400 Systolic blood pressure 138 mm[Hg] Tia Ungerer LEARNING SUPPORT TEACHER-C Work Phone: [facility] 03-08-2025 15:00-0400 Body height 167.64 cm Tia Ungerer LEARNING SUPPORT TEACHER-C Work Phone: [facility] 03-08-2025 15:00-0400 Body mass index (BMI) [Ratio] 52.8 kg/m2 Tia Ungerer LEARNING SUPPORT TEACHER-C Work Phone: [facility] 03-08-2025 15:00-0400 Body temperature 97.1 [degF] Tia Ungerer LEARNING SUPPORT TEACHER-C Work Phone: [facility] 03-08-2025 15:00-0400 Body weight 148.43 kg Tia Ungerer LEARNING SUPPORT TEACHER-C Work Phone: [facility] 03-08-2025 15:00-0400 Diastolic blood pressure 88 mm[Hg] Tia Ungerer LEARNING SUPPORT TEACHER-C Work Phone: [facility] 03-08-2025 15:00-0400 Heart rate 102 /min Tia Ungerer LEARNING SUPPORT TEACHER-C Work Phone: [facility] 03-08-2025 15:00-0400 Respiratory rate 16 /min Tia Ungerer LEARNING SUPPORT TEACHER-C Work Phone: [facility] 03-08-2025 15:00-0400 SaO2% (BldA) [Mass fraction] 100 % Tia Ungerer LEARNING SUPPORT TEACHER-C Work Phone: [facility] 03-08-2025 15:00-0400 Systolic blood pressure 148 mm[Hg] Tia Ungerer LEARNING SUPPORT TEACHER-C Work Phone: [facility] 02-26-2025 15:56-0400 Body temperature 97.4 [degF] Tia Ungerer LEARNING SUPPORT TEACHER-C Work Phone: [facility] 02-26-2025 15:56-0400 Diastolic blood pressure 94 mm[Hg] Tia Ungerer LEARNING SUPPORT TEACHER-C Work Phone: [facility] 02-26-2025 15:56-0400 Heart rate 81 /min Tia Ungerer LEARNING SUPPORT TEACHER-C Work Phone: [facility] 02-26-2025 15:56-0400 Respiratory rate 16 /min Tia Ungerer LEARNING SUPPORT TEACHER-C Work Phone: [facility] 02-26-2025 15:56-0400 SaO2% (BldA) [Mass fraction] 100 % Tia Ungerer LEARNING SUPPORT TEACHER-C Work Phone: [facility] 02-26-2025 15:56-0400 Systolic blood pressure 151 mm[Hg] Tia Ungerer LEARNING SUPPORT TEACHER-C Work Phone: [facility] 02-26-2025 12:37-0400 Body height 167.64 cm Tia Ungerer LEARNING SUPPORT TEACHER-C Work Phone: [facility] 02-26-2025 12:37-0400 Body mass index (BMI) [Ratio] 53.1 kg/m2 Tia Ungerer LEARNING SUPPORT TEACHER-C Work Phone: [facility] 02-26-2025 12:37-0400 Body weight 149.5 kg Tia Ungerer LEARNING SUPPORT TEACHER-C Work Phone: [facility] 02-03-2025 18:08-0400 Body temperature 98.5 [degF] VANESA SOLANO MD Work Phone: [facility] 02-03-2025 18:08-0400 Body weight 147.42 kg VANESA SOLANO MD Work Phone: [facility] 02-03-2025 18:08-0400 Diastolic blood pressure 94 mm[Hg] VANESA SOLANO MD Work Phone: [facility] 02-03-2025 18:08-0400 Heart rate 77 /min VANESA SOLANO MD Work Phone: [facility] 02-03-2025 18:08-0400 Respiratory rate 16 /min VANESA SOLANO MD Work Phone: [facility] 02-03-2025 18:08-0400 SaO2% (BldA) [Mass fraction] 98 % VANESA SOLANO MD Work Phone: [facility] 02-03-2025 18:08-0400 Systolic blood pressure 171 mm[Hg] VANESA SOLANO MD Work Phone: [facility] 12-13-2024 20:00-0400 Heart rate 98 /min ARAM JORDAN MD Work Phone: [facility] 12-13-2024 20:00-0400 SaO2% (BldA) [Mass fraction] 97 % ARAM JORDAN MD Work Phone: [facility] 12-13-2024 19:56-0400 Diastolic blood pressure 87 mm[Hg] ARAM JORDAN MD Work Phone: [facility] 12-13-2024 19:56-0400 Systolic blood pressure 135 mm[Hg] ARAM JORDAN MD Work Phone: [facility] 12-13-2024 16:16-0400 Body temperature 98.9 [degF] ARAM JORDAN MD Work Phone: [facility] 12-13-2024 16:16-0400 Body weight 144.24 kg ARAM JORDAN MD Work Phone: [facility] 12-13-2024 16:16-0400 Respiratory rate 16 /min ARAM JORDAN MD Work Phone: [facility] 08-29-2023 15:35-0500 Body height 167.6 cm Elena Xie MD Work Phone: [facility] 08-29-2023 15:35-0500 Body weight 143.34 kg Elena Xie MD Work Phone: [facility] 08-09-2023 10:27-0500 Body height 167.6 cm Tiffanie Schmidt APRN.INSEAM LEVELER Work Phone: [facility] 08-09-2023 10:27-0500 Body weight 143.34 kg Tiffanie Schmidt APRN.INSEAM LEVELER Work Phone: [facility] 08-09-2023 10:27-0500 Diastolic blood pressure 98 mm[Hg] Tiffanie Schmidt APRN.INSEAM LEVELER Work Phone: [facility] 08-09-2023 10:27-0500 Systolic blood pressure 128 mm[Hg] Tiffanie Schmidt APRN.INSEAM LEVELER Work Phone: [facility] 06-28-2023 12:30-0400 Body temperature 97.81 [degF] Yanet Carolina MD Work Phone: [facility] 06-28-2023 12:30-0400 Diastolic blood pressure 60 mm[Hg] Yanet Carolina MD Work Phone: [facility] 06-28-2023 12:30-0400 Heart rate 97 /min Yanet Carolina MD Work Phone: [facility] 06-28-2023 12:30-0400 Respiratory rate 15 /min Yanet Carolina MD Work Phone: [facility] 06-28-2023 12:30-0400 SaO2% (BldA) [Mass fraction] 97 % Yanet Carolina MD Work Phone: [facility] 06-28-2023 12:30-0400 Systolic blood pressure 135 mm[Hg] Yanet Carolina MD Work Phone: [facility] 06-28-2023 07:14-0400 Body height 167.6 cm Yanet Carolina MD Work Phone: [facility] 06-28-2023 07:14-0400 Body mass index (BMI) [Ratio] 50.36 kg/m2 Yanet Carolina MD Work Phone: 4(206)[phone] [address] 06-28-2023 07:14-0400 Body weight 141.52 kg Yanet Carolina MD Work Phone: 3(009)[phone] [place] [address] 05-27-2023 11:32-0400 Body height 171.5 cm Miah Cogbookss PAC Work Phone: 3(679)[phone] [place] [address] 05-27-2023 11:32-0400 Body mass index (BMI) [Ratio] 48.39 kg/m2 Miah Cogbookss PAC Work Phone: 5(574)[phone] [place] [address] 05-27-2023 11:32-0400 Body weight 142.25 kg Miah Cogbookss PAC Work Phone: 7(099)[phone] [place] [address] 05-27-2023 11:32-0400 Diastolic blood pressure 107 mm[Hg] [facility] Work Phone: 3(125)[phone] [place] [address] Comment on above: forgot BP meds/had caffine 05-27-2023 11:32-0400 Heart rate 75 /min Miah Cogbookss PAC Work Phone: 2(352)[phone] [place] [address] 05-27-2023 11:32-0400 SaO2% (BldA) [Mass fraction] 98 % Miah Cogbookss PAC Work Phone: 2(842)[phone] [place] [address] 05-27-2023 11:32-0400 Systolic blood pressure 143 mm[Hg] Miah Cogbookss PAC Work Phone: 4(471)[phone] [place] [address] Comment on above: forgot BP meds/had caffine 05-09-2023 13:13-0400 Body height 167.6 cm Yanet Carolina MD Work Phone: 4(404)[phone] [place] [address] 05-09-2023 13:13-0400 Body mass index (BMI) [Ratio] 47.29 kg/m2 Yanet Carolina MD Work Phone: 8(285)[phone] [place] [address] 05-09-2023 13:13-0400 Body weight 132.9 kg Yanet Carolina MD Work Phone: [facility] 10-28-2022 11:15-0500 Body height 167.6 cm [facility] 10-28-2022 11:150500 Body weight 136.08 kg [facility] 03-22-2022 12:13-0400 Diastolic blood pressure 117 mm[Hg] Dr. Britni Bell Work Phone: [facility] Work Phone: 03-22-2022 12:13-0400 Heart rate 85 /min Dr. Britni Bell Work Phone: [facility] Work Phone: 03-22-2022 12:13-0400 Respiratory rate 15 /min Dr. Britni Bell Work Phone: [facility] Work Phone: 03-22-2022 12:13-0400 SaO2% (BldA) [Mass fraction] 98 % Dr. Britni Bell Work Phone: [facility] Work Phone: 03-22-2022 12:13-0400 Systolic blood pressure 154 mm[Hg] Dr. Britni Bell Work Phone: [facility] Work Phone: 03-22-2022 11:25-0400 Body height 167.[address] Britni Bell Work Phone: [facility] Work Phone: 03-22-2022 11:25-0400 Body mass index (BMI) [Ratio] 46.7 kg/m2 Dr. Britni Bell Work Phone: [facility] Work Phone: 03-22-2022 11:25-0400 Body temperature 97.9 [degF] Dr. Britni Bell Work Phone: [facility] Work Phone: 03-22-2022 11:25-0400 Body weight 131.[address] Britni Bell Work Phone: [facility] Work Phone: 12-29-2021 14:01-0400 Body height 165.1 cm Helen Ferrer MAST MAKER.INSEAM LEVELER Work Phone: [facility] 12-29-2021 14:01-0400 Body weight 139.25 kg Helen Ferrer MAST MAKER.INSEAM LEVELER Work Phone: [facility] 12-29-2021 14:01-0400 Diastolic blood pressure 84 mm[Hg] Helen Ferrer MAST MAKER.INSEAM LEVELER Work Phone: [facility] 12-29-2021 14:01-0400 Heart rate 94 /min Helen Ferrer MAST MAKER.INSEAM LEVELER Work Phone: [facility] 12-29-2021 14:01-0400 SaO2% (BldA) [Mass fraction] 98 % Helen Ferrer MAST MAKER.INSEAM LEVELER Work Phone: [facility] 12-29-2021 14:01-0400 Systolic blood pressure 128 mm[Hg] Helen Ferrer MAST MAKER.INSEAM LEVELER Work Phone: [facility] 11-26-2021 09:05-0500 Body mass index (BMI) [Ratio] 48.9 kg/m2 Dr. Britni Bell Work Phone: [facility] Work Phone: 11-26-2021 09:05-0500 Body temperature 101.3 [degF] Dr. Britni Bell Work Phone: [facility] Work Phone: 11-26-2021 09:05-0500 Body weight 137.[address] Britni Bell Work Phone: [facility] Work Phone: 11-26-2021 09:05-0500 Diastolic blood pressure 92 mm[Hg] Dr. Britni Bell Work Phone: [facility] Work Phone: 11-26-2021 09:05-0500 Heart rate 73 /min Dr. Britni Bell Work Phone: [facility] Work Phone: 11-26-2021 09:05-0500 Respiratory rate 16 /min Dr. Britni Bell Work Phone: [facility] Work Phone: 11-26-2021 09:05-0500 SaO2% (BldA) [Mass fraction] 98 % Dr. Britni Bell Work Phone: [facility] Work Phone: 11-26-2021 09:05-0500 Systolic blood pressure 132 mm[Hg] Dr. Britni Bell Work Phone: [facility] Work Phone: Encounters Encounter Date Encounter Type Care Provider Facility Start: 05-20-2025 ambulatory Tiarey Núñez Facilit y:[facility] Start: 05-13-2025 End: 05-13-2025 Patient encounter procedure Tia Núñez LEARNING SUPPORT TEACHER-C -[facility] Work Phone: Start: 05-13-2025 End: 05-13-2025 ambulatory Tia Ungerer LEARNING SUPPORT TEACHER-C Work Phone: -[facility] Start: 04-22-2025 End: 04-22-2025 Emergency department patient visit STEPHANIE RYAN STOCK [facility] Start: 03-23-2025 End: 03-23-2025 ambulatory Tiarey Yoonr LEARNING SUPPORT TEACHER-C Work Phone: [facility] Work Phone: Start: 03-23-2025 End: 03-23-2025 Patient encounter procedure Tia Joerer LEARNING SUPPORT TEACHER-C -Ultrasound [facility] Work Phone: Start: 03-22-2025 End: 03-22-2025 Emergency department patient visit YANR TIA [facility] Start: 03-22-2025 End: 03-22-2025 Patient encounter procedure Jocelyn Luis A LEARNING SUPPORT TEACHER-C -[facility] Work Phone: Start: 03-22-2025 End: 03-23-2025 ambulatory Tia Joerer LEARNING SUPPORT TEACHER-C Work Phone: [facility] Work Phone: Start: 03-21-2025 End: 03-22-2025 ambulatory Tia Ungerer Facility:[facility] Start: 03-15-2025 End: 03-15-2025 Patient encounter procedure Tia Joerer LEARNING SUPPORT TEACHER-C -[facility] Work Phone: Start: 03-15-2025 End: 03-15-2025 ambulatory Tia Ungerer LEARNING SUPPORT TEACHER-C Work Phone: [facility] Work Phone: Start: 03-11-2025 ambulatory TIA LEARNING SUPPORT TEACHER JOERER [facility] Start: 03-11-2025 End: 03-13-2025 ambulatory UNGERER [facility] Start: 03-08-2025 End: 03-08-2025 Patient encounter procedure Tia Ungerer LEARNING SUPPORT TEACHER-C -[facility] Work Phone: Start: 03-08-2025 End: 03-08-2025 ambulatory Tia Ungerer LEARNING SUPPORT TEACHER-C Work Phone: [facility] Work Phone: Start: 02-26-2025 End: 02-26-2025 Emergency department patient visit Tia Ungerer LEARNING SUPPORT TEACHER-C Work Phone: -Emergency Department Work Phone: Start: 02-17-2025 End: 02-17-2025 Emergency department patient visit LUIS ANTONIO [facility] Start: 02-15-2025 End: 02-15-2025 ambulatory SYLVIA WHITTAKER Facility: Start: 02-03-2025 End: 02-03-2025 ambulatory MARY VAZQUEZ Facility: Start: 02-03-2025 End: 02-03-2025 Emergency department patient visit VANESA SOLANO MD Work Phone: [employer] [facility] Start: 01-01-2025 End: 01-01-2025 Emergency department patient visit NEVA STOCK [facility] Start: 12-20-2024 End: 12-20-2024 Emergency department patient visit LUIS ANTONIO [facility] Start: 12-13-2024 End: 12-13-2024 Emergency department patient visit ARAM JORDAN MD Work Phone: [employer] [facility] Start: 11-27-2024 End: 11-27-2024 Emergency department patient visit GREG SKY [facility] Start: 11-19-2024 End: 11-20-2024 Emergency department patient visit MKIO PERERA [facility] Start: 11-06-2024 End: 11-06-2024 Emergency department patient visit TIA SPEAR [facility] Start: 07-30-2024 End: 07-30-2024 Emergency department patient visit Laureen Rodriges Facility:[facility] Start: 06-28-2024 End: 06-28-2024 ambulatory [facility] Start: 06-20-2024 End: 06-20-2024 Emergency department patient visit TIA SPEAR [facility] Start: 06-17-2024 End: 06-17-2024 Emergency department patient visit TIA LEARNING SUPPORT TEACHER [facility] Start: 05-16-2024 End: 05-16-2024 Emergency department patient visit NEVA STOCK [facility] Start: 04-13-2024 End: 04-13-2024 amb[facility] Start: 08-29-2023 End: 08-29-2023 ambulatory Elena Xie MD Work Phone: General Surgery Comment on above: Morbid obesity (HCC) (Primary Dx); Primary hypertension; History of gastroesophageal reflux (GERD) Start: 08-29-2023 End: 08-29-2023 Telemedicine consultation with patient Elena Xie MD Work Phone: [facility] Start: 08-09-2023 End: 08-09-2023 ambulatory TIFFANIE SCHMIDT Facility:[facility] Start: 08-09-2023 End: 08-09-2023 Patient encounter procedure Tiffanie Schmidt APRN.INSEAM LEVELER Work Phone: OB/Gynecology Comment on above: Encounter for gyneco logical examination (general) (routine) without abnormal findings (Primary Dx); History of ovarian cyst; Class 3 severe obesity with serious comorbidity and body mass index (BMI) of 50.0 to 59.9 in adult, unspecified obesity type (HCC); Screening for cervical cancer; Essential hypertension Start: 08-09-2023 End: 08-09-2023 Patient encounter status Tiffanie Schmidt APRN.INSEAM LEVELER Work Phone: [facility] Work Phone: Start: 07-18-2023 End: 07-18-2023 ambulatory TIA NÚÑEZ Facility:[facility] Start: 07-13-2023 ambulatory SONU GRIFFIN Facility:[facility] Start: 07-13-2023 End: 07-13-2023 Postop follow up visit related to original px Sonu Griffin PAC Work Phone: [facility] Comment on above: Right hip impingemen t syndrome (Primary Dx); S/P hip arthroscopy Start: 06-30-2023 Telephone encounter Yanet dozier MD Work Phone: [facility] Comment on above: Surgical Follow-up ( /) Start: 06-29-2023 Telephone encounter Yanet dozier MD Work Phone: Central Scheduling Comment on above: Advice Only Start: 06-28-2023 End: 06-28-2023 ambulatory YANET CAROLINA Facility:[facility] Start: 06-28-2023 End: 06-28-2023 Subsequent hospital visit by physician Yanet Carolina MD Work Phone: [facility] Comment on above: Right hip impingemen t syndrome Start: 06-15-2023 ambulatory TIA UNGERER Facilit y:[facility] Start: 06-15-2023 End: 06-15-2023 Subsequent hospital visit by physician Yanet Carolina MD Work Phone: [facility] Comment on above: Arrived Start: 06-14-2023 Telephone encounter Tiffanie allen APRN.INSEAM LEVELER Work Phone: OB/Gynecology Comment on above: Pelvic Pain Start: 05-27-2023 ambulatory TIA UNGERER Facilit y:[facility] Start: 05-27-2023 End: 05-27-2023 Patient encounter procedure Miah Centeno PAC Work Phone: Sports Medicine [facility] [place] Comment on above: Right hip impingemen t syndrome (Primary Dx) Start: 05-16-2023 ambulatory TIA UNGERER Facilit y:[facility] Start: 05-16-2023 Encounter for other preprocedural examination TIA UNGERER Facility:[facility] Start: 05-09-2023 ambulatory TIA UNGERER Facilit y:[facility] Start: 05-09-2023 End: 05-09-2023 Office outpatient new 45 minutes Yanet Carolina MD Work Phone: [facility] Comment on above: Right hip impingemen t syndrome (Primary Dx) Start: 03-31-2023 ambulatory YANET CAROLINA Facility:[facility] Start: 12-01-2022 Telephone encounter Tony manzano RN Work Phone: [facility] Comment on above: Preparations For Surinder arely [employer] [facility] Start: 11-03-2022 Telephone encounter Tony manzano RN Work Phone: [facility] Comment on above: [employer] - [employer] ther; Schedule Surgery Start: 10-28-2022 End: 10-28-2022 Admission to establishment [facility] Start: 10-28-2022 End: 10-28-2022 ambulatory [facility] Virtual Pre Anesthesia Comment on above: Pre-op evaluation (P rimary Dx); Class 3 severe obesity with body mass index (BMI) of 45.0 to 49.9 in adult, unspecified obesity type, unspecified whether serious comorbidity present (HCC); Asthma, unspecified asthma severity, unspecified whether complicated, unspecified whether persistent; Anxiety; Gastroesophageal reflux disease, unspecified whether esophagitis present Start: 10-28-2022 End: 10-28-2022 Preprocedural examination done Pac Virtual Pre Anesthesia Start: 10-18-2022 ambulatory Raymond bailey MD Work Phone: [facility] Comment on above: Paperwork Start: 10-14-2022 ambulatory Tony johnston RN Work Phone: Orthopaedics Start: 10-14-2022 Telephone encounter Tony manzano RN Work Phone: Orthopaedics Comment on above: [employer] - [employer] ther; Schedule Surgery; Preparations For Surgery Start: 07-05-2022 Telephone encounter Markos Overton MD Work Phone: [facility] [place] Comment on above: New Patient Start: 06-25-2022 Orders Only Salbador Demarco O Work Phone: [facility] Comment on above: Acetabular labrum te ar, right, subsequent encounter (Primary Dx) Start: 06-23-2022 Telephone encounter Tony Ron RN [facility] Comment on above: [employer] - [employer] ther; Schedule Surgery Start: 06-18-2022 End: 06-18-2022 ambulatory RAYMOND BRAMBILA Facility:[facility] Start: 06-18-2022 End: 06-18-2022 Patient encounter procedure Raymond Brambila MD Work Phone: [facility] Comment on above: Tear of right acetab ular labrum, initial encounter (Primary Dx) Start: 06-04-2022 End: 06-04-2022 Patient encounter procedure Tiffanie Schmidt APRN.INSEAM LEVELER Work Phone: OB/Gynecology Comment on above: IUD check up (Primar y Dx); Vaginal discharge Start: 06-04-2022 Telephone encounter Salbador Dao rosas DO Work Phone: Orthopaedics Comment on above: Results Start: 06-03-2022 End: 06-03-2022 Subsequent hospital visit by physician Mri [facility] Wstr (I-Stat/1.5t) Work Phone: Radiology Comment on above: Pain in hip [M25.559 ] Start: 04-15-2022 End: 04-15-2022 ambulatory Tiffanie Schmidt APRN.INSEAM LEVELER Work Phone: OB/Gynecology Comment on above: Cyst of right ovary (Primary Dx); Pain due to intrauterine contraceptive device (IUD), initial encounter (HCC); Vaginal discharge Start: 04-15-2022 End: 04-15-2022 Telemedicine consultation with patient Tiffanie Schmidt INSEAM LEVELER Work Phone: [facility] Start: 03-26-2022 End: 03-26-2022 Patient encounter procedure Salbador Noel DO Work Phone: [facility] [place] Comment on above: Hip impingement synd viry, right (Primary Dx) Start: 03-22-2022 End: 03-22-2022 Emergency department patient visit Dr. Britni Bell Work Phone: [facility]-Emergency Department Start: 12-29-2021 End: 12-29-2021 Patient encounter procedure Helen Ferrer APRN.INSEAM LEVELER Work Phone: Gastroenterology Comment on above: Generalized abdomina l pain Start: 11-26-2021 End: 11-26-[address] Britni Bell Work Phone: [facility]-Laboratory, Specimen Start: 10-07-2017 End: 10-07-2017 Ambulatory ALESIA WALKER Facility:[facility] Procedures Date Procedure Procedure Detail Performing Clinician Start: 03-23-2025 CT of abdomen Tia WHALEY Work Phone: Start: 03-23-2025 Protein measurement Glory andersona Ungerer LEARNING SUPPORT TEACHER-C Work Phone: Comment on above: TEST RESULTS LIMITSC alprotectin, Fecal 11 ug/g 0-120 Concentration Interpretation Follow-Up < 5 - 50 ug/g Normal None >50 -120 ug/g Borderline Re-evaluate in 4-6 weeks >120 ug/g Abnormal Repeat as clinically indicated [facility] ORIGINAL REPORT ON FILE IN LAB CONTAINS ADDITIONAL TEST SITE INFORMATION. __ Start: 03-22-2025 Antibody to centrome re measurement Tia Ungerer LEARNING SUPPORT TEACHER-C Work Phone: Comment on above: Previous reported re sult: TNP AIEdited by: BREANNA on 03/27/25:0909 AMENDED REPORT 03/27/25 09 ANTI-CENT B previously reported as: Test not performed Start: 03-22-2025 Antibody to extracta ble nuclear antigen measurement Tia Ungerer LEARNING SUPPORT TEACHER-C Work Phone: Comment on above: Previous reported re sult: TNP AIEdited by: BREANNA on 03/27/25:0909 AMENDED REPORT 03/27/25 0909 TENA Ab previously reported as: Test not performed Start: 03-22-2025 Antibody to IRINA-1 measurement Tia Ungerer LEARNING SUPPORT TEACHER-C Work Phone: Comment on above: Previous reported re sult: TNP AIEdited by: BREANNA on 03/27/25:0909 AMENDED REPORT 03/27/25 0909 ANTI-IRINA previously reported as: Test not performed Start: 03-22-2025 Antibody to lupus La protein measurement Tia Ungerer LEARNING SUPPORT TEACHER-C Work Phone: Start: 03-22-2025 Antibody to SS-A measurement Tia Ungerer LEARNING SUPPORT TEACHER-C Work Phone: Start: 03-22-2025 Autoantibody measurement Tia Ungerer LEARNING SUPPORT TEACHER-C Work Phone: Comment on above: Previous reported re sult: TNP AIEdited by: BREANNA on 03/27/25:0909 AMENDED REPORT 03/27/25 0909 ANTICHROMATIN previously reported as: Test not performed Start: 03-22-2025 Chocolate RAST Tia Ungerer LEARNING SUPPORT TEACHER-C Work Phone: Start: 03-22-2025 Endomysial antibody IgA level Tia Ungerer LEARNING SUPPORT TEACHER-C Work Phone: Start: 03-22-2025 Food RAST Tia Un gerer LEARNING SUPPORT TEACHER-C Work Phone: Start: 03-22-2025 Immunoglobulin M measurement Tia Ungerer LEARNING SUPPORT TEACHER-C Work Phone: Start: 03-22-2025 Measurement of funga l antibody Tai Ungerer LEARNING SUPPORT TEACHER-C Work Phone: Comment on above: Negative: <45 Equivo margot: 45-50 Positive: >50 Start: 03-22-2025 AIRPLANE PATROL PILOT antibody measurement Tia Ungerer LEARNING SUPPORT TEACHER-C Work Phone: Comment on above: Previous reported re sult: TNP AIEdited by: BREANNA on 03/27/25:0909 AMENDED REPORT 03/27/25 0909 AIRPLANE PATROL PILOT Ab previously reported as: Test not performed Start: 03-22-2025 Shrimp RAST Tia Un gerer LEARNING SUPPORT TEACHER-C Work Phone: Start: 03-22-2025 Complete ultrasound of kidneys and bladder Tia Ungerer LEARNING SUPPORT TEACHER-C Work Phone: Start: 02-26-2025 Computed tomography of abdomen and pelvis with intravenous contrast Tia Ungerer LEARNING SUPPORT TEACHER-C Work Phone: Start: 02-26-2025 Urnls dip stick/tabl et reagent auto microscopy Tia Osoriorojelio LEARNING SUPPORT TEACHER-C Work Phone: Start: 02-26-2025 Estimated creatinine clearance Tia Osoriorojelio LEARNING SUPPORT TEACHER-C Work Phone: Start: 02-17-2025 Urinalysis LUIS ANTONIO REEVES Comment on above: Result Comment: URIN ALYSIS Performed By: #### [id number] ####[facility],[address] [place] [address] Start: 02-03-2025 Computed tomography of abdomen and pelvis with contrast VANESA SOLANO MD Work Phone: Start: 12-20-2024 Urinalysis LUIS ANTONIO REEVES Comment on above: Result Comment: URIN ALYSIS Performed By: #### [id number] ####[facility],[address] [place] [address] Start: 12-13-2024 CT of abdomen and pe lvis without contrast ARAM JORDAN MD Work Phone: Start: 05-16-2024 Urinalysis LUIS ANTONIO REEVES Comment on above: Result Comment: URIN ALYSIS Performed By: #### [id number] ####[facility],[address] [place] [address] Start: 06-28-2023 US Unspecified body region during surgery Raymond Archer MD Work Phone: Start: 06-28-2023 Urine test visual color cmprsn meths Miah J Valus PAC Work Phone: Start: 06-03-2022 Mri any jt lower ext rem w/o contrast matrl Salbador Cohen DO Work Phone: Start: 03-22-2022 Plain x-ray of pelvi s and lower extremity Dr. Britni Bell Work Phone: Start: 12-14-2007 Tonsillectomy STEPHANIE MARIANO DO History of tonsillectomy History of tonsillectomy Dr. Britni Bell Work Phone: Investigation of transfusion reaction Dr. Britni Bell Work Phone: Respiratory microbia l culture Dr. Britni Bell Work Phone: Plan of Treatment Date Care Activity Detail Author Start: 08-09-2026 Pap Testing Pap Testing [facility] Start: 03-23-2025 Elastase.pancreatic [Presence] in Stool [facility] Start: 03-23-2025 Protein measurement [facility] Start: 03-08-2025 Patient referral [facility] Work Phone: Start: 02-26-2025 [facility] Start: 02-03-2025 Urine culture [facility] Start: 12-13-2024 Troponin I.cardiac panel - Serum or Plasma by High sensitivity method [facility] Start: 08-08-2023 End: 08-08-2023 Patient encounter procedure 08/08/2023 1:45 PM EST Office Visit [facility] [address] [place], [place] [id number] Yanet Carolina MD [address] [place] [address] [facility] Start: 07-13-2023 End: 07-13-2023 Patient encounter procedure [facility] Start: 06-28-2023 End: 06-28-2023 Admission to same day surgery center 06/28/2023 9:10 AM EDT - 06/28/2023 12:00 PM EDT [facility] [address] [place] [address] Ynaet Carolina MD [address] [place] [address] ARTHROSCOPY HIP W/ FEMOROPLASTY [facility] Comment on above: ARTHROSCOPY HIP W/ FEMOROPLASTY Start: 06-28-2023 End: 06-28-2023 Arthroscopy hip w/femoroplasty [facility] Start: 06-28-2023 End: 06-28-2023 Arthroscopy hip w/labral repair [facility] Start: 06-28-2023 Subsequent hospital visit by physician 06/28/2023 7:15 AM EDT Hospital Encounter [facility] [address] [place] [address] Yanet Carolina MD [address] [place] [phone] Right hip impingement syndrome [facility] Comment on above: Right hip impingement syndrome Start: 06-15-2023 End: 06-15-2023 Patient encounter procedure 06/15/2023 9:00 AM EDT Appointment [facility] [address] [place] [address] Yanet Carolina MD [address] [place] [phone] [facility] Start: 06-03-2023 Influenza vaccination INFLUENZA VACCINE (#1) [facility] Start: 05-09-2023 End: 05-09-2024 CT Hip - right WO contrast CT HIP RIGHT WITHOUT CONTRAST WITH 3D FOR SURGICAL PLANNING Imaging Routine Right hip impingement syndrome Expected: 05/09/2023, Expires: 05/09/2024 [facility] Comment on above: Expected: 05/09/2023, Expires: Start: 10-03-2022 DEPRESSION ASSESSMENT DEPRESSION ASSESSMENT [facility] Start: 06-03-2022 Influenza vaccination [facility] Start: 10-03-2021 DEPRESSION ASSESSMENT DEPRESSION ASSESSMENT [facility] Start: 2015 PAP TESTING PAP TESTING [facility] Start: 2015 Screening for malignant neoplasm of cervix CERVICAL CANCER SCREENING DISCUSSION [facility] Start: 2013 Third diphtheria, tetanus and acellular pertussis (DTaP) vaccination TDAP (ADULT) [facility] Start: 2013 Urine microalbumin profile [facility] Start: 01-07-2012 ANNUAL PCP TEAM CHRONIC DISEASE VISIT ANNUAL PCP TEAM CHRONIC DISEASE VISIT [facility] Start: 01-07-2012 BP Controlled (<130/80) BP Controlled (<130/80) [facility] Start: 01-07-2012 HEPATITIS C SCREENING HEPATITIS C SCREENING [facility] Start: 01-07-2012 HIV SCREENING HIV SCREENING [facility] Start: 01-07-2012 SPIROMETRY SPIROMETRY [facility] Start: 2009 HIV screening HIV SCREENING DISCUSSION [facility] Start: 2006 Adult depression screening assessment DEPRESSION SCREENING [facility] Start: 01-07-2000 PNEUMOCOCCAL (1 - PCV) PNEUMOCOCCAL (1 - PCV) [facility] Start: 01-07-2000 Pneumococcal vaccination Pneumococcal Vaccine (1 - PCV) [facility] Start: 1999 COVID-19 VACCINE (#1) COVID-19 VACCINE (#1) [facility] Start: 1999 COVID-19 VACCINE (1) COVID-19 VACCINE (1) [facility] Start: 1994 COVID-19 VACCINE (#1) COVID-19 VACCINE (#1) [facility] Start: 1994 HEPATITIS B (1 of 3 - 3-dose series) HEPATITIS B (1 of 3 - 3-dose series) [facility] Start: 1994 Hepatitis B Vaccine (1 of 3 - 3-dose series) Hepatitis B Vaccine (1 of 3 - 3-dose series) [facility] Start: 1994 Hepatitis C screening HEPATITIS C VIRUS SCREENING [facility] Start: 1994 Tetanus vaccination TETANUS [facility] Arthroscopy hip w/femoroplasty ARTHROSCOPY HIP W/ FEMOROPLASTY Right hip impingement syndrome [facility] Arthroscopy hip w/labral repair ARTHROSCOPY HIP W/ LABRAL REPAIR Right hip impingement syndrome [facility] C reactive protein [Mass/volume] in Serum or Plasma [facility] Celiac disease screen [facility] CT Abdomen [facility] End: 06-15-2023 CT Hip - right [facility] Comment on above: 1 Occurrences starting 06/15/2023 until 06/15/2023 Elastase.pancreatic [Presence] in Stool [facility] Immunoglobulin measurement [facility] Microscopic observat ion [Identifier] in Vaginal fluid by Gram stain BACT/PIA VAG GRAM STAIN Microbiology Routine Vaginal discharge 06/04/2022 2:47 PM EDT [facility] Work Phone: PAP TEST PAP TEST [facility] Encounter for gynecological examination (general) (routine) without abnormal findings Screening for cervical cancer 08/09/2023 11:53 AM EST [facility] Work Phone: Patient Education [facility] Work Phone: Patient referral [facility] Work Phone: Protein measurement [facility] End: 06-28-2023 RF Greater than 1 hour [facility] Comment on above: One Time for 1 Occurrences starting 06/04 until 06/28/2023 US Kidney - bilatera l and Urinary bladder [facility] End: 07-16-2024 Us transvaginal US FEMALE PELVIS TRANSVAG Radiology Routine LLQ pain IUD (intrauterine device) in place 1 Occurrences starting 06/17/2023 until 07/16/[address] [facility] Work Phone: Comment on above: 1 Occurrences starting 06/17/2023 until 07/16/2024 End: 07-18-2023 XR HIP GENERAL 3V PELV/AP/LAT RIGHT XR HIP GENERAL 3V PELV/AP/LAT RIGHT Radiology Routine Tear of right acetabular labrum, initial encounter 1 Occurrences starting 06/18/2022 until 07/18/[address] [facility] Work Phone: Comment on above: 1 Occurrences starting 06/18/2022 until 07/18/2023 [facility] Payers Date Payer Category Payer Private Health Insurance [id number] 2024 Self-pay [id number] 2023 Unknown [employer] [id number] 2023-Present [address] [place] [address] [id number]. [id number] 2022 Unknown [id number] 2015 Medicaid [employer] [id number] 2015-Present [phone] [address] [place] [address] Medicaid [id number]. [id number] 2015 Medicaid [id number]. [id number]. [id number] 2015 Unknown [id number] 1994 Unknown [id number] 2.16840.1.265704.3.579.2. 594 1994 Unknown [id number] 2.840.1.158607.3.579.2. 594 1994 Unknown [id number] 2.840.1.334331.3.579.2. 594 1994 Unknown [id number] 2.16840.1.080545.3.579.2. 594 1994 Unknown [id number] 2.16840.1.698705.3.579.2. 594 1994 Unknown [id number] 2.16840.1.359826.3.579.2. 594 1994 Unknown [id number] 2.16840.1.467830.3.579.2. 594 1994 Unknown [id number] 2.16.840.1.632762.3.579.2. 594 1994 Unknown [id number] 2.16.840.1.081681.3.579.2. 651 1994 Unknown [id number] 2.16.840.1.715697.3.579.2. 651 1994 Unknown [id number] 2.16.840.1.423108.3.579.2. 651 1994 Unknown [id number] 2.16.840.1.986134.3.579.2. 651 1994 Unknown [id number] 2.16.840.1.171074.3.579.2. 651 1994 Unknown [id number] 2.16.840.1.875955.3.579.2. 651 1994 Unknown [id number] 2.16840.1.782276.3.579.2. 651 1994 Unknown [id number] 2.16.840.1.990670.3.579.2. 651 1994 Unknown [id number] 2.16.840.1.619094.3.579.2. 651 1994 Unknown [id number] 2.16.840.1.844425.3.579.2. 651 1994 Unknown [id number] 2.16840.1.459489.3.579.2. 651 1994 Unknown [id number] 2.16.840.1.855506.3.579.2. 651 1994 Unknown [id number] 2.16840.1.621292.3.579.2. 627 Medicaid SELF PAY INSURANCE [id number] Unknown [id number] Unknown [id number] 2.16840.1.065108.3.579.2. 528 Unknown [id number] 2.16.840.1.521474.3.579.2. 528 Unknown [id number] 2.16.840.1.139449.3.579.2. 528 Unknown [id number] 2.16.840.1.039517.3.579.2. 462 Unknown [id number] 2.16.840.1.034640.3.579.2. 462 Unknown [id number] 2.16.840.1.939198.3.579.2. 462 Unknown [id number] 2.16.840.1.738442.3.579.2. 462 Unknown [id number] 2.16.840.1.267418.3.579.2. 462 Unknown [id number] 2.16.840.1.168580.3.579.2. 462 Unknown [id number] 2.16.840.1.777434.3.579.2. 462 Unknown [id number] 2.16.840.1.073819.3.579.2. 462 Unknown [id number] 2.16.840.1.803593.3.579.2. 462 Unknown [id number] 2.16.840.1.802705.3.579.2. 462 Social History Date Type Detail Facility Start: 05-25-2011 End: 03-22-2025 Tobacco smoking status NHIS Never smoked tobacco [facility] Work Phone: Start: 12-29-2021 End: 06-18-2022 Alcohol intake Lifetime non-drinker (finding) [facility] Start: 10-29-2021 History SDOH Alcohol Frequency 1 [facility] Start: 1995 Sex Assigned At Not on file C [facility] Start: 12-13-2021 End: 06-18-2022 Exposure to SARS-CoV-2 (event) Not sure [facility] Start: 03-22-2022 Tobacco smoking stat us AKIS Unknown if ever smoked [facility] Work Phone: Start: 02-09-2021 Non-smoker [facility] Start: 1995 Sex Assigned At Female C [facility] Start: 05-25-2011 End: 06-18-2022 Tobacco use and exposure Smokeless tobacco non-user [facility] Start: 10-28-2022 End: 08-09-2023 Alcohol intake Ex-drinker (finding) [facility] Start: 05-27-2023 End: 08-09-2023 Gender identity Not on file [facility] Start: 05-27-2023 End: 08-09-2023 History of Social function [facility] National Score (1-10 0), lower number is lower risk 86 [facility] Start: 12-13-2024 Never Never [facility] Start: 12-13-2024 No No [facility] Start: 12-14-2014 End: 12-13-2024 Sex Female (finding) [facility] Sexual Orientation Heterosexual (finding) [facility] Work Phone: Sexual Orientation [facility] Medical Equipment Procedure Code Equipment Code Equipment Origin al Text Equipment Identifier Dates Suture Nanotack 1.4mm Dog [employer] [place] - [id number] Start: 06-28-2023 Mental Status Date Assessment Result Facility 02-03-2025 Cognitive function Level Of Cons ciousness Awake;Alert;Appropriate;Follow s Commands [facility] Work Phone: 12-13-2024 Cognitive function Level Of Cons ciousness Awake;Alert;Appropriate;Follow s Commands [facility] Work Phone: Clinical Notes 12-29-2021 to 04-22-2025 Note Date & Type Note Facility 04-22-2025 Hospital Discharge instructions Patient Education 04/22/2025 17:28:36 Back Care Tips Back Care Tips Caring for your back These are things you can do to prevent a recurrence of acute back pain and to reduce symptoms from chronic back pain: Maintain a healthy weight. If you are overweight, losing weight will help most types of back pain. Exercise is an important part of recovery from most types of back pain. The muscles behind and in front of the spine support the back. This means strengthening both the back muscles and the abdominal muscles will provide better support for your spine. Swimming and brisk walking are good overall exercises to improve your fitness level. Practice safe lifting methods (below). Practice good posture when sitting, standing and walking. Avoid prolonged sitting. This puts more stress on the lower back than standing or walking. Wear quality shoes with sufficient arch support. Foot and ankle alignment can affect back symptoms. Women should avoid wearing high heels. Therapeutic massage can help relax the back muscles without stretching them. During the first 24 to 72 hours after an acute injury or flare-up of chronic back pain, apply an ice pack to the painful area for 20 minutes and then remove it for 20 minutes, over a period of 60 to 90 minutes, or several times a day. As a safety precaution, do not use a heating pad at bedtime. Sleeping on a heating pad can lead to skin santiago or tissue damage. You can alternate ice and heat therapies. Medicines Talk to your healthcare provider before using medicines, especially if you have other medical problems or are taking other medicines. You may use acetaminophen or ibuprofen to control pain, unless your healthcare provider prescribed other pain medicine. If you have chronic conditions like diabetes, liver or kidney disease, stomach ulcers, or gastrointestinal bleeding, or are taking blood thinners, talk with your healthcare provider before taking any medicines. Be careful if you are given prescription pain medicines, narcotics, or medicine for muscle spasm. They can cause drowsiness, affect your coordination, reflexes, and judgment. Do not drive or operate heavy machinery while taking these types of medicines. Take prescription pain medicine only as prescribed by your healthcare provider. Lumbar stretch Here is a simple stretching exercise that will help relax muscle spasm and keep your back more limber. If exercise makes your back pain worse, don t do it. Lie on your back with your knees bent and both feet on the ground. Slowly raise your left knee to your chest as you flatten your lower back against the floor. Hold for 5 seconds. Relax and repeat the exercise with your right knee. Do 10 of these exercises for each leg. Safe lifting method Don t bend over at the waist to lift an object off the floor. Instead, bend your knees and hips in a squat. Keep your back and head upright Hold the object close to your body, directly in front of you. Straighten your legs to lift the object. Lower the object to the floor in the reverse fashion. If you must slide something across the floor, push it. Posture tips Sitting Sit in chairs with straight backs or low-back support. Keep your knees lower than your hips, with your feet flat on the floor. When driving, sit up straight. Adjust the seat forward so you are not leaning toward the steering wheel. A small pillow or rolled towel behind your lower back may help if you are driving long distances. Standing When standing for long periods, shift most of your weight to one leg at a time. Alternate legs every few minutes. Sleeping The best way to sleep is on your side with your knees bent. Put a low pillow under your head to support your neck in a neutral spine position. Avoid thick pillows that bend your neck to one side. Put a pillow between your legs to further relax your lower back. If you sleep on your back, put pillows under your knees to support your legs in a slightly flexed position. Use a firm mattress. If your mattress sags, replace it, or use a 1/2-inch plywood board under the mattress to add support. Follow-up care Follow up with your healthcare provider, or as advised. If X-rays, a CT scan or an MRI scan were taken, they will be reviewed by a radiologist. You will be notified of any new findings that may affect your care. Call 911 Call 911 if any of the following occur: Trouble breathing Confusion Very drowsy Fainting or loss of consciousness Rapid or very slow heart rate Loss of bowel or bladder control When to seek medical advice Call your healthcare provider right away if any of the following occur: Pain becomes worse or spreads to your arms or legs Weakness or numbness in one or both arms or legs Numbness in the groin area [phone] [employer]. [address] [place] [address], [place] [address]. All rights reserved. This information is not intended as a substitute for professional medical care. Always follow your healthcare professional's instructions. Follow Up Care 04/22/2025 16:05:11 With:TIA NÚÑEZ APRN-INSEAM LEVELER Address: [address] [place] [phone] When:2-4 days [facility] 04-22-2025 Emergency department Discharge summary Discharge Instructions Thank you for allowing [facility] to assist you with your healthcare needs. The following is important discharge information regarding your hospital visit. Diagnosis from Today's Visit Acute bilateral back pain Back pain What to Do Next Instructions from Your Care Team No qualifying data available. Post Acute Orders No qualifying data available. You Need to Schedule the Following Appointments Follow Up with TIA NÚÑEZ When:Within 2-4 days Where:[place] [address]- [phone] Allergies amoxicillin penicillin Medications Please ask your primary doctor or pharmacist before taking any other medication not listed, including over the counter drugs, herbal medications, vitamins and or supplements as they may interact with your home medications. What How Much When Why Instructions Last Dose New acetaminophen-hydrocodone (Finley 325- 5 mg oral tablet) 1 tab(s) by mouth Every 6 hours as needed for for pain Acute bilateral back pain Duration: 1 Days May take 1-2 tablets / dose Printed Prescription Unchanged ethinyl estradiol-norgestimate (Sprintec 0.25 mg-35 mcg oral tablet) 1 tab(s) by mouth Every day Unchanged fluticasone-salmeterol (Advair Diskus 100 mcg-50 mcg inhalation powder) 1 puff(s) by inhalation Two (2) times a day Unchanged predniSONE (predniSONE 20 mg oral tablet) See instructions 2 tab(s) Oral qDay for 3 days. Then Take 1 tablet qDay for 3 days. Then take 1/ 2 tablet qDay for 4 days. Please take this list to your next doctor s visit. Bring all medications you take, including over the counter medications, herbals and other supplements with you to your doctor s visit. Patients and families are reminded to discard old lists and to update any records with all medication providers or retail pharmacies. Education Materials Back Care Tips Caring for your back These are things you can do to prevent a recurrence of acute back pain and to reduce symptoms from chronic back pain: Maintain a healthy weight. If you are overweight, losing weight will help most types of back pain. Exercise is an important part of recovery from most types of back pain. The muscles behind and in front of the spine support the back. This means strengthening both the back muscles and the abdominal muscles will provide better support for your spine. Swimming and brisk walking are good overall exercises to improve your fitness level. Practice safe lifting methods (below). Practice good posture when sitting, standing and walking. Avoid prolonged sitting. This puts more stress on the lower back than standing or walking. Wear quality shoes with sufficient arch support. Foot and ankle alignment can affect back symptoms. Women should avoid wearing high heels. Therapeutic massage can help relax the back muscles without stretching them. During the first 24 to 72 hours after an acute injury or flare-up of chronic back pain, apply an ice pack to the painful area for 20 minutes and then remove it for 20 minutes, over a period of 60 to 90 minutes, or several times a day. As a safety precaution, do not use a heating pad at bedtime. Sleeping on a heating pad can lead to skin santiago or tissue damage. You can alternate ice and heat therapies. Medicines Talk to your healthcare provider before using medicines, especially if you have other medical problems or are taking other medicines. You may use acetaminophen or ibuprofen to control pain, unless your healthcare provider prescribed other pain medicine. If you have chronic conditions like diabetes, liver or kidney disease, stomach ulcers, or gastrointestinal bleeding, or are taking blood thinners, talk with your healthcare provider before taking any medicines. Be careful if you are given prescription pain medicines, narcotics, or medicine for muscle spasm. They can cause drowsiness, affect your coordination, reflexes, and judgment. Do not drive or operate heavy machinery while taking these types of medicines. Take prescription pain medicine only as prescribed by your healthcare provider. Lumbar stretch Here is a simple stretching exercise that will help relax muscle spasm and keep your back more limber. If exercise makes your back pain worse, don t do it. Lie on your back with your knees bent and both feet on the ground. Slowly raise your left knee to your chest as you flatten your lower back against the floor. Hold for 5 seconds. Relax and repeat the exercise with your right knee. Do 10 of these exercises for each leg. Safe lifting method Don t bend over at the waist to lift an object off the floor. Instead, bend your knees and hips in a squat. Keep your back and head upright Hold the object close to your body, directly in front of you. Straighten your legs to lift the object. Lower the object to the floor in the reverse fashion. If you must slide something across the floor, push it. Posture tips Sitting Sit in chairs with straight backs or low-back support. Keep your knees lower than your hips, with your feet flat on the floor. When driving, sit up straight. Adjust the seat forward so you are not leaning toward the steering wheel. A small pillow or rolled towel behind your lower back may help if you are driving long distances. Standing When standing for long periods, shift most of your weight to one leg at a time. Alternate legs every few minutes. Sleeping The best way to sleep is on your side with your knees bent. Put a low pillow under your head to support your neck in a neutral spine position. Avoid thick pillows that bend your neck to one side. Put a pillow between your legs to further relax your lower back. If you sleep on your back, put pillows under your knees to support your legs in a slightly flexed position. Use a firm mattress. If your mattress sags, replace it, or use a 1/2-inch plywood board under the mattress to add support. Follow-up care Follow up with your healthcare provider, or as advised. If X-rays, a CT scan or an MRI scan were taken, they will be reviewed by a radiologist. You will be notified of any new findings that may affect your care. Call 911 Call 911 if any of the following occur: Trouble breathing Confusion Very drowsy Fainting or loss of consciousness Rapid or very slow heart rate Loss of bowel or bladder control When to seek medical advice Call your healthcare provider right away if any of the following occur: Pain becomes worse or spreads to your arms or legs Weakness or numbness in one or both arms or legs Numbness in the groin area [phone] [employer]. [address] [place] [address]. All rights reserved. This information is not intended as a substitute for professional medical care. Always follow your healthcare professional's instructions. Additional Information VACCINATE! IT SAVES LIVES! Members of the community who have not yet received the COVID-19 vaccine and would like to receive it can visit one of [facility] vaccine clinics. There are many vaccine clinic locations within the [facility]. For locations and available times, please visit [email or web address].[place]. gov/. It is important to note that some COVID mobile vaccine clinics are held outdoors and may be canceled in rainy or stormy conditions. To learn more about pediatric vaccinations (ages 5-11), we invite you to visit the [facility] webpage. https://www.[facility].org/p ages/6693-Fyuqe-Vdwzvitofvl-Freq zdikzp-Tlvuk-Ibdmmckvz.html To learn more about the COVID-19 vaccine, we invite you to visit the CDC website for a list of frequently asked questions. https://www.cdc.gov/coronavirus/ 2019-ncov/vaccines/faq.html [facility] Patient Portal Access Instructions: Stay connected with your healthcare team and access your personal medical information anytime with the [facility] Patient Portal. If you would like a full copy of your medical records please contact the [facility] Medical Records Department Tuesday through Tuesday between 8a.m. and 4:30p.m. Please follow the directions below to access the portal: 1.Access the email account you provided upon registration to the [facility].2.Look for an invitation email from [facility].3.Open the email and access the invitation link: Accept Invitation to [facility]4.Fill in the required anderson to create your account. Sign into www.rumr: turn off the lights with your username and password that you created in the above steps to stay up to date. You can then view a summary of results, a summary of your visits, and the ability to download your summaries to your computer or send the information securely to a physician. Remember that your healthcare information is confidential, so carefully consider who you will allow to register on the [facility] Patient Portal for access to your information. You can also access the [facility] Patient Portal on the [employer]. Simply click on Health Records under Health Data and then click on the [employer] logo. HOW TO SAFELY DISPOSE OF PRESCRIPTION MEDICATIONS Please use one of the following methods to safely dispose of your unused medications. 1.Use a drug disposal kit: the drug disposal pouch allows you to safely discard your old and unused drugs. Ask your nurse to give you one when you are discharged.2.Visit a local take-back location: Many local pharmacies and police departments have programs that collect old and unwanted prescription drugs. Call your local pharmacy or go to http://Odersun.Clickyreserva/8A7Wj0y to find one close to you.3.Make use of household items: Use cat litter or old coffee grounds to dispose medications if other options are not available. Mix your drugs with these household products, seal them in an airtight container and throw it into the garbage. Call [facility]: [phone] to be sure your drugs can be disposed of in this way. Some medicines may require a different approach.4.Never flush your medications down the toilet. IF YOU HAVE BEEN PRESCRIBED AN OPIOIDS FOR PAIN If you have been prescribed an opioid (such as hydrocodone, oxycodone or morphine), it is critical to understand the possible side effects and risks of opioid pain medications. Even when taken as directed, opioids can have several side effects including: Tolerance, meaning you might need to take more of a medication for the same pain relief. Nausea, vomiting and/or constipation. Sleepiness, dizziness, dry mouth, confusion, depression or itching. Physical dependence, meaning you have withdrawal symptoms when a medication is stopped ? this can develop within a few days. KNOW YOUR RESPONSIBILITIES It is important to know exactly how much and how often to take the opioid pain medications you are prescribed. Never take opioids in higher amounts or more often than prescribed. Do not combine opioids with alcohol or other drugs that cause drowsiness, such as benzodiazepines, also known as benzos, including diazepam and alprazolam, muscle relaxants or sleep aids. Never sell or share prescription opioids. This is illegal. Store opioids in a secure place and out of reach of others (including children, family, friends and visitors). The last page(s) of this document has been signed and retained as a CHART COPY Signatures Patient Education Materials Back Care Tips Medication Leaflets My discharge plan and instructions have been reviewed and explained to me and I,JESSICA ACUNA understand my current condition and have read and understand these discharge instructions. I have received a written copy of the plan/instructions. If I have questions, I am aware that I should contact my doctor. Patient/Divisional Human Resources Director Signature: Date/Time: Relationship to Patient: Witness Name/Signature: Date/Time: [facility] 03-23-2025 Radiology Diagnostic study note [facility] Imaging Services [address] [place] [id number] Abdomen Complete MR#: [id number] Acct: [id number] Name: JESSICA ACUNA Rep #: [id number] : 1995 F 30 From: Pet er Peer DO PCP: JUDD Bernard Status: REG CLI Study:Abdomen Complete Date of Exam: Exam# [id number] Ordering Dr: Tia Núñez PROCEDURE: ABDOMEN COMPLETE 03/23/2025 REASON FOR EXAM: RIGHT FLANK PAIN TECHNIQUE: ABDOMEN COMPLETE FINDINGS: Liver: Liver echogenicity is within normal limits. No intrahepatic biliary ductal dilatation. Normal hepatopetal flow in the portal vein. Gallbladder: Status post cholecystectomy Common bile duct: 6 mm. Pancreas: Normal as seen. Tail is not seen well Kidneys: The right kidney measures 13.3 cm L left 5.2 cm AP x 4.4 cm T. normal size, cortical thickness.. No calculi. The left kidney measures 12.2 cm 6.1 cm AP x 5.8 cm normal cortical thickness calculi. Spleen: Normal limits. Spleen length 10.9 cm.. Aorta: Normal caliber IVC: Remarkable. Peritoneal Findings: No peritoneal free fluid other perineal abnormality identified. US/Abdomen Complete IMPRESSION: Unremarkable ultrasound abdomen. Status post cholecystectomy. Reading Location: [facility] CC: JUDD Núñez ~ Resident Engineer: Signed [facility] 03-22-2025 Radiology Diagnostic study note [facility] Imaging Services [address] [place] [address] Kidney and Bladder MR#: [id number] Acct: [id number] Name: JESSICA ACUNA Rep #: [id number] : 1995 F 30 From: Venessa Martínez MD PCP: JUDD Bernard Status: REG CLI Study:Kidney and Bladder Date of Exam: 0 03/22/25 Exam# [id number] Ordering Dr: Tia Núñez EXAM: US Retroperitoneal Limited, Renal CLINICAL INDICATION: RIGHT FLANK PAIN TECHNIQUE: Real-time limited ultrasound of the retroperitoneum with image documentation. COMPARISON: No relevant prior studies available. FINDINGS: RIGHT KIDNEY: Unremarkable. No stones. No hydronephrosis. The right kidney measures 13.0 x 5.5 x 4.9 cm. LEFT KIDNEY: Unremarkable. No stones. No hydronephrosis. The left kidney measures 12.1 x 5.7 x 5.9 cm. BLADDER: Normal-appearing urinary bladder. Prevoid volume 142 cc. Postvoid volume 8 cc. US/Kidney and Bladder IMPRESSION: No acute findings in the retroperitoneum. Reading Location: [facility] CC: LEARNING SUPPORT TEACHER-C Tia Núñez ~ Resident Engineer: Signed [facility] 03-08-2025 Evaluation note Diagnosis Onset Date Resolution Anxiety acute March 08, 2025 2:45pm Colitis acute March 08, 2025 2:45pm Depression acute March 08, 2025 2:45pm Ovarian cyst acute March 08 2:45pm PCOS (polycystic ovarian syndrome) acute March 08, 2025 2:45pm Asthma chronic March 08, 2025 2:45pm Hypertension chronic March 08 2:45pm [facility] Work Phone: 1(890) 198-386206-06-2025 Evaluation note* Diagnosis Onset Date Resolution Status Admit Date Anxiety acute March 08, 2025 2:45pm Colitis acute March 08, 2025 2:45pm Depression acute March 08, 2025 2:45pm Ovarian cyst acute March 08 2:45pm PCOS (polycystic ovarian syndrome) acute March 08, 2025 2 :45pm Asthma chronic March 08, 2025 2:45pm Hypertension chronic March 08 2:45pm Acute right flank pain acute Ju 2024 1:44pm Hematuria acute March 15 1:44pm Lower respiratory infection acute March 15, 2025 1:44pm Abdominal pain acute March 22, 2025 2:34pm Diarrhea acute March 22 2:34pm Nausea acute March 22 2:34pm GERD (gastroesophageal reflu x disease) chronic March 22, 2025 2:34pm [facility] Work Phone: 1([phone]) 429-306905-27-2025 Discharge summary [facility] Medical Records Department [address] [place] [address] Emergency Department Summary 02/26/25 MR#: [id number] Acct: [id number] Name: JESSICA ACUNA Rep #:[id number] : 1995 30 From: Nino Sánchez DO [...] her gallbladder out and is passing gas. [facility] Medical History Non-smoker COVID-19 affecting childbirth [...] following commands knew that she was at [facility] year is 2024 Skin: Warm, dry, [...] 71.4 H Lymph % (Auto) 18.8 L Simpson % (Auto) 5.7 Eos % (Auto) 3.2 [...] Clarity Clear Urine pH 6.0 Ur Specific Tatum 1.020 Urine Protein 15 H Urine Glucose [...] lower chance of developing HCC. Reading Location: [place] [address] Discharge Plan Triage Chief Complaint: Abd Pain [...] symptoms or any other concerns Print Language: Maltese Disposition Disposition: Home, Self Care What to do if you have Problems For any increased pain, shortness of breath, bleeding, nausea or vomiting, chestpain, or any unexpected problems, contact your Primary Care Provider. Call [facility] ([phone]) or report tothe closest Emergency Room. Call 911 if necessary. 02/26/25 1543 Cosigner Signature (if applicable): CC: JUDD Núñez ~ Signed [facility]05-27-2025 Radiology Diagnostic study note [facility] Imaging Services [address] [place], [place] [id number] Abdomen/Pelvis W IV Cont ONLY MR#: [id number] Acct: [id number] Name: JESSICA ACUNA Rep #: [id number] : 1995 F 30 From: Charlie Lai MD PCP: JUDD Bernard Status: REG ER Study:Abdomen/Pelvis W IV Cont ONLY Date of E xam: 02/26/25 Exam# [id number] Ordering Dr: Hung Sánchez DO PROCEDURE: ABDOMEN/PELVIS [...] lower chance of developing HCC. Reading Location: [place] [address] CC: JUDD Núñez; Dr. Nino Sánchez DO ~ Resident Engineer: Signed [facility]05-27-2025 Discharge summary Author Nino Sánchez [facility] Note Date/Time February 26, 2025 3:43p m [facility] Medical Records Department [address] [place] [address] Emergency Department Summary 02/26/25 MR#: [id number] Acct: [id number] Name: JESSICA ACUNA Rep #:[id number] : 1995 30 From: Nino Sánchez DO PCP: Tia Núñez NP-C Status:REG ER Location: ED HPI History of [...] her gallbladder out and is passing gas. [facility] Medical History Non-smoker COVID-19 affecting childbirth [...] following commands knew that she was at [facility] year is 2024 Skin: Warm, dry, [...] 71.4 H Lymph % (Auto) 18.8 L Simpson % (Auto) 5.7 Eos % (Auto) 3.2 [...] Clarity Clear Urine pH 6.0 Ur Specific Tatum 1.020 Urine Protein 15 H Urine Glucose [...] lower chance of developing HCC. Reading Location: [place] [address] Discharge Plan Triage Chief Complaint: Abd Pain [...] symptoms or any other concerns Print Language: Maltese Disposition Disposition: Home, Self Care What to do if you have Problems For any increased pain, shortness of breath, bleeding, nausea or vomiting, chestpain, or any unexpected problems, contact your Primary Care Provider. Call [facility] ([phone]) or report to the closest Emergency Room. Call 911 if necessary. 02/26/25 6315 <Electronically signed by Nino Sánchez DO> [place] Signature (if applicable): CC: JUDD Núñez ~ Signed [facility] Work Phone: 1(697) 583-105705-04-2025 Radiology Diagnostic study note [facility] [address] [place] [address] CT SCAN REPORT : [id number], Signed. Patient: JESSICA ACUNA : 1995 MR#: [id number] Acct:[id number] - EXAMINATION: CT OF THE ABDOMEN AND [...] LAZARO GIFFORD MD Signed date/time: 02/03/252021 CC: SIMBA ABRAHAM MD; VANESA SOLANO MD [facility]03-13-2025 Discharge summary Author VIET MARIA [facility] Note Date/Time December 13, 2024 8:2 8pm [facility] [address] [place] [address] HEALTH INFORMATION MANAGEMENT EMERGENCY DEPARTMENT : [phone] Signed Patient: JESSICA ACUNA Acct:[id number] MRUN: [id number] : 1995 Sex: F Loc: ED AD [...] Negative Except Where Noted in Documentation <VIET MARIA M - Last Filed: 12/14/24 15:22> ED PMH/Social HX/Family HX - Social History Able to Read: No Able to Write: No Smoking Status: Never Smoked Hx Chewing Tobacco Use: No Alcohol Use: Never Any recreational drug use reported?: No Feels Threatened In Home Environment: No Feels Threatened In a Relationship: No - [place]/Gender ID What is your current Gender Identity? [...] mood - Skin Skin Color: Present: Normal, [place] Skin exam: Present: warm, dry - Expanded [...] % Lymph % (Auto) 24.4 (17.0-45.5) % Simpson % (Auto) 6.4 (5.5-11.7) % Eos % [...] Clear (Clear) Urine pH 5 Ur Specific Tatum 1.020 (1.015-1.025) Urine Protein 15 A (Negative) [...] (43.0-65.0) % Lymph % (Auto) (17.0-45.5) % Simpson % (Auto) (5.5-11.7) % Eos % (Auto) [...] Urine Appearance (Clear) Urine pH Ur Specific Tatum (1.015-1.025) Urine Protein (Negative) Urine Ketones (Negative) [...] 1522 <Electronically signed by NBA CAMPOS MD> 12/13/242021 Co Signed Electronically By: Co Signed Date/Time: CC: ARAM JORDAN MD [facility] Work Phone: [phone]) 550-782403-13-[address] [address] HEALTH INFORMATION MANAGEMENT EMERGENCY DEPARTMENT : [phone] Signed Patient: JESSICA ACUNA Acct:[id number] MRUN: [id number] : 1995 Sex: F Loc: ED AD [...] Feels Threatened In a Relationship: No - [place]/Gender ID What is your current Gender Identity? [...] mood - Skin Skin Color: Present: Normal, [place] Skin exam: Present: warm, dry - Expanded [...] % Lymph % (Auto) 24.4 (17.0-45.5) % Simpson % (Auto) 6.4 (5.5-11.7) % Eos % [...] Clear (Clear) Urine pH 5 Ur Specific Tatum 1.020 (1.015-1.025) Urine Protein 15 A (Negative) [...] (43.0-65.0) % Lymph % (Auto) (17.0-45.5) % Simpson % (Auto) (5.5-11.7) % Eos % (Auto) [...] Urine Appearance (Clear) Urine pH Ur Specific Tatum (1.015-1.025) Urine Protein (Negative) Urine Ketones (Negative) [...] Generated By:VIET MARIA MD Generated Date/Time: 12/13/24 170 Electronically Signed By: 12/14/24 1522 12/13/242021 Co Signed Electronically By: Co Signed Date/Time: CC: ARAM JORDAN MD [facility]03-13-2025 Radiology Diagnostic study note [facility] [place] [address] [place] SCAN REPORT : [id number], Signed. Patient: JESSICA ACUNA : 1995 MR#: [id number] Acct:[id number] - EXAMINATION: CT OF THE ABDOMEN AND [...] by: YANET SIMMS MD Signed date/time: 12/13/24 4122 CC: VIET MARIA MD; ARAM JORDAN MD [facility] Work Phone: 1(557) 781-457611-27-2023 NoteHNO ID: [id number] Author: Elena Xie MD Service: ? Author [...] visit. Either the patient or their legal sales representative metals has been informed of the risks and [...] before and after bariat (more content not included)...[facility]11-27-2023 History of Present illness Narrative* Elena Xie MD - 08/29/2023 4:44 PM EST BARIATRIC SURGERY NEW PATIENT CONSULTATION HISTORY AND PHYSICAL Date: August 29, 2023 Time: 4:44 PM Name: Jessica Acuna This visit was performed virtually. I have communicated my name and active licensure. The patient sidentity and physical location were verified at the time of this visit. Either the patient or theirlegal sales representative metals has been informed of the risks and [...] nose DIRECTED FOR a one time DOSE. [id number]. if no response in TWO MINUTES use [...] which included preparing to see the patient, powi-xe-[id number] patient care, completing clinical documentation, obtaining and/or reviewing separately obtained history, and counseling and educating the patient/family/caregiver. Elena Xie MD Advanced Laparoscopic and Bariatric Surgery documented in this encounterOhio Valley Surgical Hospital11-07-2023 Instructions* Patient Instructions* Tiffanie Schmidt APRN.CNP - 08/09/2023 11:11 AM EST See PCP - Elevated BP Cymbalta - bupropion will help you control cravings but your BP has to be well- controlled. Fluoxetine and sertraline can be weight variable in some people. documented in this encounterOhio Valley Surgical Hospital11-07-2023 NoteHNO ID: [id number] Author: Tiffanie Schmidt APRN.CNP Service: ? Author Type: Nurse Practitioner Type: Progress Notes Filed: 08/09/2023 11:46 AM Note Text: School Bus Monitor offered: Patient declines. Accompanied by mother. Jessica [...] L0 SAB0 IAB0 Ectopic0 Multiple0 Live Births0 Corporate Ethics Officer History LMP: 09/26/2021, IUD Age at Menarche: Age at First : Age at Menopause: Corporate Ethics Officer History Comments: Sexual Activity: Yes; Male Contraception: [...] external genitalia normal, normal Bartholin's glands, urethra, [place]'s glands, no vulvar lesions, no cervical lesions, [...] year or sooner as needed Tiffanie Schmidt APRN.[facility]11-07-2023 History of Present illness Narrative* Tiffanie Schmidt APRN.INSEAM LEVELER - 08/09/2023 10:18 AM EST School Bus Monitor offered: Patient declines. Accompanied by mother. Jessica [...] L0 SAB0 IAB0 Ectopic0 Multiple0 Live Births0 Corporate Ethics Officer History LMP: 09/26/2021, IUD Age at Menarche: Age at First : Age at Menopause: Corporate Ethics Officer History Comments: Sexual Activity: Yes; Male Contraception: [...] external genitalia normal, normal Bartholin's glands, urethra, [place]'s glands, no vulvar lesions, no cervical lesions, [...] year or sooner as needed Tiffanie Schmidt APRN.INSEAM LEVELER documented in this encounterOhio Valley Surgical Hospital10-16-2023 NoteHNO ID: [id number] Author: Tia Silver RDMS Service: ? Author Type: Cabin Crew Type: Progress Notes Filed: 07/18/2023 1:35 PM [...] Silver RDMS RVT July 18, 2023 1:35 [facility]10-11-2023 History of Present illness Narrative* Sonu Otilai Griffin, PAC - 07/13/2023 11:00 AM EDT [...] concerns. Sonu Griffin PA-C documented in this encounterOSHol[facility]09-28-2023 Telephone encounter Note* Telephone Encounter - [...] tomorrow if this regimen is not helpful. [facility]09-28-2023 Miscellaneous Notes* Telephone Encounter - Kendra [...] throbbing. Please call her to advise at [phone]. * Telephone Encounter - Yanet Carolina MD - 06/30/2023 11:44 AM EDT Called patient for postop checkup, no one was available so I left a generic voice mail for them to call the office back when convenient, if they have any questions or concerns. Yanet Carolina MD documented in this encounterOSHolzer Hospital09-28-2023 Telephone encounter Note* Telephone Encounter - Chelsie Tena - 06/30/2023 11:52 AM EDT Patient had hip surgery on 06/[address] Yanet Carolina. Patient has been on the same pain medicine for a couple years and she says it is not working. Patient says she cannot sleep due to pain and throbbing. Please call her to advise at [phone]. [facility]09-28-2023 Telephone encounter Note* Telephone Encounter - Yanet Carolina MD - 06/30/2023 11:44 AM EDT Called patient for postop checkup, no one was available so I left a generic voice mail for them to call the office back when convenient, if they have any questions or concerns. Yanet Carolina MD [facility]09-27-2023 Note* Addendum Note - Sonu Griffin [facility] - 06/29/2023 11:14 AM EDTAddended by: SONU GRIFFIN on: 06/29/2023 11:14 AM Modules accepted: Orders, Level of Service [facility]09-27-2023 Note* Addendum Note - Sonu Griffin [facility] - 06/29/2023 11:14 AM EDTAddended by: SONU GRIFFIN on: 06/29/2023 11:14 AM Modules accepted: Orders, Level of Service [facility]09-27-2023 Note* Addendum Note - Sonu Griffin [facility] - 06/29/2023 11:14 AM EDTAddended by: SONU GRIFFIN on: 06/29/2023 11:14 AM Modules accepted: Orders, Level of Service [facility]09-27-2023 Note* Addendum Note - Sonu Griffin [facility] - 06/29/2023 11:14 AM EDTAddended by: SONU GRIFFIN on: 06/29/2023 11:14 AM Modules accepted: Orders, Level of Service [facility]09-27-2023 Note* Addendum Note - NELLA Thorpe - 06/29/2023 11:14 AM EDTAddended by: SONU GRIFFIN on: 06/29/2023 11:14 AM Modules accepted: Orders, Level of Service [facility]09-27-2023 Miscellaneous Notes* Addendum Note - NELLA [...] 1-2 tabs every 4-6 hours as needed. RUDI. All questions answered and script sent to [...] should do. Please advise. documented in this encounterOSHolzer Hospital09-27-2023 Telephone encounter Note* Telephone Encounter - NELLA Thorpe - 06/29/2023 11:12 AM EDT Discussed pain control being an issue. Advised stopping mobic, using toradol for 3 days as prescribed with food and water. Continued APAP as prescribed and continued use of oxycodone 1-2 tabs every 4-6 hours as needed. RICE. All questions answered and script sent to pharmacy Sonu Griffin PA-C [facility]09-27-2023 Telephone encounter Note* Telephone Encounter - [...] on what she should do. Please advise. [facility]09-26-2023 Miscellaneous Notes* Nursing Notes - Júnior [...] 1. Right hip Arthroscopic osteoplasty femoral neck 01718 2. Right hip Arthroscopic labral repair 34279 3. Right hip Arthroscopic capsular closure 4. Right hip Flouroscopy 90348 Surgeon: Yanet Carolina MD Petrology Teacher: NELLA Brady served as mate first, the assistance was necessary to perform safe [...] feet were placed in well-paddedtraction boots. A Jo[place]usan Postless system was utilized. A traction check [...] and slotted cannula to introduce an arthroscopic paskenta blade knife into the AL portal. An [...] from medial to lateral positions. Using a Concept Inbox Slingshot device, a traction suture was placed [...] distal limbs of the capsulotomy with a Concept Inbox Slingshot device. The slingshot device was first [...] - 06/28/2023 11:04 AM EDT Jessica Acuna ([id number]) PRE OPERATIVE DIAGNOSIS Right hip impingement syndrome [M25.851] POST OPERATIVE DIAGNOSIS Post-Op Diagnosis Codes: * Right hip impingement syndrome [M25.851] PROCEDURE PERFORMED Procedure(s) (LRB): Right hip arthroscopy (Right) ARTHROSCOPY HIP W/ LABRAL REPAIR (Right) PRIMARY CLOSURE Yes INTRAOPERATIVE FINDINGS cam lesion, labral tear SURGEON Surgeon(s) and Role: * Yanet Carolina MD - Primary ANESTHESIOLOGIST Anesthesiologist: Raymond Archer MD MECHANICAL PENCILS ASSEMBLER: Crissy Moraes APRN-MECHANICAL PENCILS ASSEMBLER SURGICAL STAFF Mdm Developer: Barbara Aguirre; Rosalia Hagen RN Physician Petrology Teacher: Sonu Griffin, PAC Scrub Person: Raul Riley Tattoo Technician: Donnie Lan COMPLICATIONS None ESTIMATED BLOOD LOSS Minimal SPECIMENS No specimen sent * No specimens in log * Yanet Carolina MD June 28, 2023 11:04 AM documented in this encounterOSU [facility]09-[facility] Nurse Note* Nursing Notes - Júnior Dickinson RN - 06/28/2023 12:35 PM EDT AVS reviewed with pt and family. Questions answered. [facility]09-[facility]23 Nurse Note* Nursing Notes - Júnior Dickinson RN - 06/28/2023 11:30 AM EDT Oral and nasal airway removed. Pt alert follows commands. [facility]09-26-2023 Hospital Discharge instructions* Discharge Instructions* NELLA [...] not hesitate to call our office at [phone]. Hip Arthroscopy [facility] after surgery is [...] before using it again. documented in this [facility]09-26-2023 Surgery Postoperative evaluation and management note* Op Note - Yanet aCrolina MD - 06/28/2023 11:05 AM EDT OP NOTE - RIGHT HIP ARTHROSCOPY Preop Diagnosis: 1. Right hip Femoroacetabular impingement, cam 2. Right hip Labral tear Postop Diagnosis: 1. Right hip Femoroacetabular impingement, cam anterior lateral neck 2. Right hip chondrolabral delamination and delaminating tear of labral base Procedure: 1. Right hip Arthroscopic osteoplasty femoral neck 88116 2. Right hip Arthroscopic labral repair 25200 3. Right hip Arthroscopic capsular closure 4. Right hip Flouroscopy 16453 Surgeon: Yanet Carolina MD Petrology Teacher: NELLA Brady served as mate first, the assistance was necessary to perform safe [...] feet were placed in well-paddedtraction boots. A [employer] Postless system was utilized. A traction check [...] and slotted cannula to introduce an arthroscopic paskenta blade knife into the AL portal. An [...] from medial to lateral positions. Using a Concept Inbox Slingshot device, a traction suture was placed [...] distal limbs of the capsulotomy with a Concept Inbox Slingshot device. The slingshot device was first [...] PACU in stable condition. Yanet Carolina MD [facility] Surgery Postoperative evaluation and management note* Brief Op Note - Yanet Carolina MD - 06/28/2023 11:04 AM EDT Jessica Acuna ([id number]) PRE OPERATIVE DIAGNOSIS Right hip impingement syndrome [M25.851] POST OPERATIVE DIAGNOSIS Post-Op Diagnosis Codes: * Right hip impingement syndrome [M25.851] PROCEDURE PERFORMED Procedure(s) (LRB): Right hip arthroscopy (Right) ARTHROSCOPY HIP W/ LABRAL REPAIR (Right) PRIMARY CLOSURE Yes INTRAOPERATIVE FINDINGS cam lesion, labral tear SURGEON Surgeon(s) and Role: * Yanet Carolina MD - Primary ANESTHESIOLOGIST Anesthesiologist: Raymond Archer MD MECHANICAL PENCILS ASSEMBLER: Crissy Moraes APRN-MECHANICAL PENCILS ASSEMBLER SURGICAL STAFF Mdm Developer: Barbara Aguirre; Rosalia Hagen RN Physician Petrology Teacher: Sonu Griffin, PAC Scrub Person: Raul Riley Tattoo Technician: Donnie Lan COMPLICATIONS None ESTIMATED BLOOD LOSS Minimal SPECIMENS No specimen sent * No specimens in log * Yanet Carolina MD June 28, 2023 11:04 AM [facility]09-26-2023 Nurse Surgical operation note* Barbara Aguirre - 06/28/2023 11:00 AM EDT ISBAR given to RAIL CREW MEMBER All questions answered [facility]09-26-2023 Nurse Note* Barbara Aguirre - 06/28/2023 11:00 AM EDT ISBAR given to RAIL CREW MEMBER All questions answered * Lluvia Sam RN [...] cannula for block procedure documented in this encounterOSHolzer Hospital09-26-2023 Nurse Surgical operation note* Lluvia Sam RN - 06/28/2023 9:03 AM EDT OR team at bedside, report given to JOSEPH Jimenez [facility]09-26-2023 Nurse Surgical operation note* Lluvia Sam RN - 06/28/2023 8:[address] Archer at bedside, timeout completed for block to the right hip [facility]09-26-2023 Nurse Surgical operation note* Lluvia Sam RN - 06/28/2023 8:54 AM EDT Patient placed on 2 liters per nasal cannula for block procedure [facility]09-26-2023 Surgery Preoperative evaluation and management note* OR PreOp - NELLA Thorpe - 06/28/2023 8:49 AM EDT In compliance with the laws of the [facility], the following conditions have been [...] The patient's account was reviewed on the [place] Automated Rx Reporting System: OARRS. Their controlled substance medication history was found to be aligned with health and medication history. Patient has had no adverse outcomes with this medication. Sonu Griffin PA-C [facility]09-26-2023 Attending History and physical note* NELLA [...] medical history on file. Patient denies CAD, DE, stents, CHF, arrhythmias, chest pain/palpitations with exertion, [...] with obygn for this. Yanet Carolina MD [facility]09-26-2023 History and physical note* NELLA Thorpe [...] medical history on file. Patient denies CAD, DE, stents, CHF, arrhythmias, chest pain/palpitations with exertion, [...] medical history on file. Patient denies CAD, DE, stents, CHF, arrhythmias, chest pain/palpitations with exertion, [...] Yanet Carolina MD documented in this encounterOSU [facility]09-[facility]-2023 Surgical operation note* OR PreOp - NELLA Thorpe - 06/28/2023 8:49 AM EDT In compliance with the laws of the [facility], the following conditions have been [...] The patient's account was reviewed on the [place] Summify Rx Reporting System: RapidMindS. Their controlled substance medication history was found to be aligned with health and medication history. Patient has had no adverse outcomes with this medication. Sonu Griffin PA-C documented in this [facility]09-26-[facility] History and physical note* Yanet Carolina MD - 06/28/2023 8:46 AM EDT HPI: Jessica Acuna is a 28 y.o. y.o. female who presents for pre-operative H&P and surgical consent for Right hip scope 06/28 No past medical history on file. Patient denies CAD, DE, stents, CHF, arrhythmias, chest pain/palpitations with exertion, [...] with obygn for this. Yanet Carolina MD [facility] Miscellaneous Notes* Telephone Encounter - Tiffanie Schmidt APRN.CNP - 06/17/2023 4:48 PM EDT Noted. Tiffanie Schmidt APRN.CNP * Telephone Encounter - Danna Rosado RN - 06/17/2023 4:33 PM EDT Soonest appointment is 06/27 in Radiology. Scheduled. Danna Rosado RN * Telephone Encounter - Tiffanie Schmidt APRN.CNP - 06/17/2023 4:06 PM EDT ED note reviewed. IUD strings were visualized extruding from cervical os. Pelvic ultrasound orderedfor pain and IUD localization. Tiffanie Schmidt APRN.LAURIE * Telephone Encounter - Myla Rich RN - 06/17/2023 3:51 PM EDT Records received from [facility] and spoke to patient. She did not [...] care everywhere it shows patient went to [facility] on 06/14/23, but can only see lab results. Requested records from [facility]. Myla Rich RN * Telephone Encounter - Danna Rosado RN - 06/16/2023 8:26 AM EDT Left message for patient to call office. Danna Rosado RN * Telephone Encounter - Tiffanie Schmidt APRN.CNP - 06/15/2023 5:31 PM EDT Please call pt for patient update. Tiffanie Schmidt APRN.LAURIE * Telephone Encounter - Lluvia Trujillo LPN - 06/14/2023 4:03 PM EDT . * Telephone Encounter - Danna Rosado RN - 06/14/2023 3:02 PM EDT Patient states she went to the bathroom and when she wiped she could feel her IUD strings. Having spotting and left sided pelvic pain. Pain rate of 7 out of 10. Patient does not live in [place] and plans to go to local ER. She has hip surgery coming up on 06/28/23. If this IUD needs removed, patientis wanting to replace it before her surgery. Patient to call the office with an update. Danna Rosado RN documented in this encounterOhio Valley Surgical Hospital08-25-2023 History and physical note * Maih Centeno, PAC - 05/27/2023 12:00 PM EDT [...] medical history on file. Patient denies CAD, DE, stents, CHF, arrhythmias, chest pain/palpitations with exertion, [...] 32 Alpha angle 53 MRI: right hip [facility] 06-03-22 images and report reviewed AVN no Other abnormality no Labral Tear yes Articular damage no IMPRESSION: RIGHT hip pain, FAIS / labral tear / cam Plan: consent Right hip scope 06/28/23 Miah Centeno PA-C [facility]08-25-2023 History and physical note* NELLA Leblanc [...] medical history on file. Patient denies CAD, DE, stents, CHF, arrhythmias, chest pain/palpitations with exertion, [...] 06/28/23 Miah Centeno PA-C documented in this encounterNationwide Children's Hospital08-25-2023 History of Present illness Narrative* NELLA [...] for Right hip scope 06/28. Okay for Ancef. Eliquis will be used post operatively. Pt [...] 14 days, #56 Anti-nausea Eliquis BMI 48.39 Ancef Iceman Crutches morning of Miah Centeno PA-C documented in this encounterNationwide Children's Hospital08-07-2023 History of Present illness Narrative* Yanet [...] locking. Pain relief with nothing. Phx of [place] in 2021, no inj. Tx: Percocet [...] following improve the problem: rest. 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 Pt consented to conversing via phone. Spoke with pt for 5 mins. Informed pt - [place] [facility] [place], pt's BMI > 40 [...] Sports Medicine Surgeon and Orthopedic Surgeon Appt: [phone] [facility] [address] / [address] [place], [place] [address] documented in this encounterOhio Valley Surgical Hospital01-26-2023 History and physical note * Kelly Leal PA-C - 10/28/2022 11:00 AM EST PREANESTHESIA CONSULT CLINIC TELEHEALTH VISIT Patient has been identified by name and date of : Yes This is a virtual visit using MyChart video visit. It require patient-provider interaction for [...] fevers. Neuro: No history of TIA's, stroke, CHANGE OF ADDRESS CLERK tumor, impaired sensorium, hemiplegia, paraplegia or quadraplegia. No neurological symptoms or problems. Respiratory: Positive for Asthma, Negative for Current cough, Dyspnea, Home O2, Pneumonia within 6 weeks (date), Tobacco Use, URI < 2 weeks, Wheezing Cardiovascular: No history of HTN requiring medication, no history of angina, CHF, DE, cardiac surgery or stents. Denies rest pain, [...] or incontinence,, stones or chronic kidney disease COMMUNITY HEALTH NAVIGATOR: Negative for abnormal vaginal bleeding, abnormal vaginal [...] can bite the upper lip above the saad line Neck: Short and thick neck Mouth: [...] 11:22 AM PAGER/CONTACT #: [place] [id number] Instructions* Patient Instructions* Kelly Leal PA-C - 10/25/2022 2:05 PM EST PATIENT PREOPERATIVE INSTRUCTIONS Raymond Brambila MD has scheduled you for your procedure at this surgery center: [facility]: [phone] --[address] [place] [address]. Please enter through the entrance closest to [...] Procedures: - YOU MUST HAVE A RESPONSIBLE OFFICE CORRESPONDENT TAKE YOU HOME. A REVENUE CYCLE ANALYST OR MILLING MACHINE TENDER CANNOT BE MADE A RESPONSIBLE OFFICE CORRESPONDENT. - We recommend that a responsible person [...] Advance Directive, please fax a copy to [phone] or email to for it to be [...] your chart that day. Marychuy Leal PA-C [phone] documented in this encounterOhio Valley Surgical Hospital01-12-2023 Miscellaneous Notes* Telephone Encounter - Tony Ron RN - 10/14/2022 9:31 AM EST Pt Id By Name & . Pt consented to conversing via phone. Pt agreed to surgery date with Dr. Raymond Brambila on Oct 28 at [facility]. Pt confirmed surgery will be for Right [...] patient was offered a surgery/procedure at a [facility] facility. The surgeon/proceduralist and patient have [...] As a result of the September 2021 [facility] decision to cancel non- essential surgeries at [facility] facilities, unless special criteria are met, I have reviewed the clinical record for this patient and have determined that the scheduled procedure meets the criteria to go forward and should be scheduled because of the presence of severe symptoms and/or risk of rapid disease progression. Spoke with pt for 15 mins. documented in this encounterOhio Valley Surgical Hospital10-03-2022 Miscellaneous Notes* Telephone Encounter - Angélica Vega - 07/05/2022 3:09 PM EDT Patient would like to schedule with Dr Overton in Angela Vega [facility] [place] [id number] [facility] [address] [place] [address] P: [phone] F: [phone] [email or web address] * Telephone Encounter - Angélica Vega - [...] to know if the [facility] the correct place where she should be scheduling or if she needs to [facility]. Was Patient Referred to [facility]/Seek Emergency Treatment (Y/N): N Did Patient Agree (Y/N): na Was An Attempt Made To Transfer The Patient To The Office (Y/N): N Were You Able To Reach Someone At The Office (Y/N): na If Yes - Patient Was Transferred To (Caregivers Name): na If No - Which [facility] Leadership Business Division Chair Did You Speak With Regarding This Patient: na Was an appointment scheduled (Y/N): N Reason patient was requesting visit (RFV/signs and symptoms/diagnosis) : Referral Question Person calling if other than patient: Patient Return call to if other than patient: na Best contact number: [phone] Thank you, Daylin Ramos July 05, 2022 2:30 PM documented in this encounterOhio Valley Surgical Hospital09-16-2022 NoteHNO ID: [id number] Author: Raymond Brambila MD Service: ? 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 Resident Engineer: AELX Transcribe Date/Time: Jun 03 2022 9:50A ... [...] Specifically for her we will need a Browder table and this will need to be done at the hospital. We will need Tena AND Nephew extended cannulas and instruments. We will also need the Arthrex standard arthroscopy instruments. We will potentially need an extended camera to go with all of these instruments. 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 Resident Engineer: ALEX Transcribe Date/Time: Jun 03 2022 9:50A [...] Specifically for her we will need a Browder table and this will need to be [...] and cannula set Arthrex hip arthroscopy instrumentation Browder Table or Tena and Nephew Hip arthroscopy [...] MD Sports Medicine/Orthopaedic Surgery documented in this encounterOhio Valley Surgical Hospital09-02-2022 Miscellaneous Notes* Telephone Encounter - Tiffanie [...] consultation. Dr. Jaskaran Brambila, Dr. Jocelyn Martini ([facility]) or Dr. Will Arriaga. thank you DD documented in this encounterOhio Valley Surgical Hospital09-02-2022 History of Present illness Narrative* Tiffanie Schmidt APRN.INSEAM LEVELER - 06/04/2022 1:48 PM EDT Jessica Acuna [...] which included preparing to see the patient, [id number]-[id number] patient care, completing clinical documentation, obtaining and/or reviewing separately obtained history, performing a medically appropriate examination, counseling and educating the pat ient/family/caregiver, and ordering medications, tests, or procedures. documented in this encounterOhio Valley Surgical Hospital09-01-2022 History of Present illness Narrative* Anupama Sharma, RT(R) - 06/03/2022 8:40 AM EDT Radiology Service [...] 03, 2022 8:59 AM documented in this encounterOhio Valley Surgical Hospital07-14-2022 History of Present illness Narrative* Tiffanie Schmidt APRN.INSEAM LEVELER - 04/15/2022 9:07 AM EDT Virtual Visit: This is a virtual visit using [employer] video visit. It required patient-provider interaction for [...] contraceptive device (IUD), initial encounter ([facility] [facility]) - ICD9: 996.76, 338.18, ICD10: T83.84XA - [...] which included preparing to see the patient, [id number] patient care, completing clinical documentation, obtaining and/or reviewing separately obtained history, performing a medically appropriate examination and counseling and educating the patient/family/caregiver. documented in this encounterOhio [facility]06-24-2022 Instructions* Patient Instructions* Salbador Cohen V, DO - 03/26/2022 3:32 PM EDT Thank you for choosing the [facility] for your acute care needs. [...] physician or booking an appointment, please call [phone] or speak with any Patient Director Day Care Center. Hours: Tuesday through Tuesday 7:30 am to 7:00 pm. Tuesday and Tuesday: 8:00 am to 2:30 pm. documented in this encounterOhio Valley Surgical Hospital06-24-2022 History of Present illness Narrative* Salbador Cohen V, DO - 03/26/2022 3:28 PM EDT Deysi Singh [address] [place] [phone] Ms. Acuna is a 27 year old [...] everyday function. 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 documented in this encounterOhio Valley Surgical Hospital03-29-2022 History of Present illness Narrative* Helen [...] for internal providers or letter via the [employer] for external providers. Jessica Acuna [...] gall bladder was taken out 2020 in [place]. Patient reports she takes omeprazole as needed [...] with more than 50% of the total kwun-xo-gwfl time of the visit in counseling / coordination of care. I have confirmed and edited as necessary, the PFSH and ROS obtained by others. Helen Ferrer APRN.CNP January 04, 2022 1:14 PM [facility] No data available for this section [facility] Evaluation note* Diagnosis Generalized abdominal pain Abdominal pain, generalized documented in this encounter [facility]* Diagnosis Onset Date Resolution Status Allergic rhinitis acute Asthma chronic Morbid obesity due to excess calories [facility] Work Phone: Evaluation note* Diagnosis Hip impingement syndrome, right- Primary documented in this encounter [facility] note* Diagnosis Cyst of right ovary- Primary Other and unspecified ovarian cyst Pain due to intrauterine contraceptive device (IUD), initial encounter ([facility]) Vaginal discharge Leukorrhea, not specified as infective documented in this encounter [facility]* Diagnosis Pain in hip Pain in joint, pelvic region and thigh documented in this encounter [facility]* Diagnosis IUD check up- Primary Surveillance of previously prescribed intrauterine contraceptive device Vaginal discharge Leukorrhea, not specified as infective documented in this encounter [facility]* Diagnosis Tear of right acetabular labrum, initial encounter- Primary documented in this encounter [facility] note* Diagnosis Acetabular labrum tear, right, subsequent encounter- Primary documented in this encounter [facility] note* Diagnosis Tear of right acetabular labrum, initial encounter- Primary documented in this encounter [facility] note* Diagnosis Pre-op evaluation- Primary Preoperative examination, [...] labrum, initial encounter documented in this encounter [facility]* Diagnosis Right hip impingement syndrome- Primary documented in this encounter [facility] note* Diagnosis Right hip impingement syndrome- Primary Right hip impingement syndrome documented in this encounter [facility] note* Diagnosis Right hip impingement syndrome Right hip impingement syndrome documented in this encounter [facility] note* Diagnosis LLQ pain- Primary Abdominal pain, left lower quadrant IUD (intrauterine device) in place Presence of intrauterine contraceptive device documented in this encounter [facility]* Diagnosis Right hip impingement syndrome documented in this encounter [facility] note* Diagnosis S/P hip arthroscopy- Primary documented in this encounter [facility] note* Diagnosis Right hip impingement syndrome- Primary S/P hip arthroscopy documented in this encounter [facility] note* Diagnosis Encounter for gynecological examination (general) [...] Unspecified essential hypertension documented in this encounter [facility]* Diagnosis Morbid obesity (HCC)- Primary Morbid obesity Primary hypertension Unspecified essential hypertension History of gastroesophageal reflux (GERD) Personal history of other diseases of digestive system documented in this encounter [facility] noteNo assessment information availableCoPremier Health [facility] Work Phone: Hospital Discharge instructions Additional Instructions [...] resolution if any problems concerns return to ER.[facility] Work Phone: Hospital Discharge instructions Additional [...] Return for worsening symptoms or any other concernsWMadison Health Work Phone: Reason for referral (narrative)* Diagnostic Procedure Only (Routine) - Pending Review Specialty Diagnoses / Procedures Referred By Dayana shearer Referred To Contact XR IMAGING Diagnoses Tear of right acetabular labrum, initial encounter Procedures XR HIP GENERAL 3V PELV/AP/LAT RIGHT RADEX HIP UNILATERAL WITH PELVIS 2-[place] [address] [place] [address] Xr Imaging Referral ID Status Reason Start Date Expiration Date Visits Requested Visits Authorized [id number] Pending Review Auto-Generat ed Referral 06/18/2022 07/18/2023 1 1 [facility] for referral (narrative)* Diagnostic Procedure Only (Routine) - Authorized Specialty Diagnoses / Procedures Referred By Dayana shearer Referred To Contact US IMAGING Diagnoses LLQ pain IUD (intrauterine device) in place Procedures US FEMALE PELVIS TRANSVAG US TRANSVAGINAL Tiffanie Schmidt APRN.INSEAM LEVELER [address] [place] [address] [facility] [id number] Referral ID Status Reason Start Date Expiration Date Visits Requested Visits Authorized [id number] Authorized Auto-Generat ed Referral 06/17/2023 07/16/2024 1 1 [facility] for referral (narrative)No reason for referral information availableWMadison Health Work Phone: Summary Purpose Family History No Family History Records Found Relationship Condition Age at Onset Recorded Date/T bryan father Cerebrovascular accident (CVA) Unknown mother Intrinsic asthma Unknown grandfather Diabetes mellitus Unknown Chronic obstructive pulmonary disease Unk nown Advance Directives No Advanced Directives Records Found Advance Directive Response Recorded Date/ Time Living Will No March 22, 2022 12:08pm Power of Rough Rounder No March 22 12:08pm Advance Directive Response Recorded Date/ Time Do you have a Healthcare Power of Rough Rounder? No February 26, 2025 1:53pm Chief Complaint [...] Date abd February 26, 2025 12:35 pm LEARNING SUPPORT TEACHER. EST [facility] - PPW SENT March 08, 2025 2:45pm Chief Complaint Admit Date abd February 26, 2025 12:35 pm LEARNING SUPPORT TEACHER. [facility] March 08, 2025 2:45pm [facility] FU March 15, 2025 1:44 pm Reason [...] Date abd February 26, 2025 12:35 pm LEARNING SUPPORT TEACHER. [facility] March 08, 2025 [...] 2025 1:44 pm Lower respiratory infection March 15 1:44pm Abdominal pain March 22, 2025 2:34 pm Diarrhea March 22, 2025 2:34 pm Nausea March 22, 2025 2:34 pm GERD (gastroesophageal reflux disease) J [facility] 2024 2:34pm Chief Complaint Admit Date abd February 26, 2025 12:35 pm LEARNING SUPPORT TEACHER. 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 [facility] S[facility] March 08, 2025 2:45pm [facility] FU March 15, 2025 1:44 pm COLITIS DIARRHEA BLOOD IN STOOL March 2:34pm RT FLANK PAIN, HEMATURIA March 22, 2025 3:18pm RT FLANK PAIN March 23, 2025 10:1 3am Not feeling well. Headache. Wheezing May us2024 10:49am Reason for Referral Specialty Diagnoses / Procedures Referred By Dayana shearer Referred To Contact [facility] Diagnoses Hip impingement syndrome, right Procedures CONSULT TO PHYSICAL THERAPY PHYSICAL THERAPY EVALUATION HIGH COMPLEX 45 MINS Salbador Cohen V, DO [address] [place] [address] [facility] [place] [address] [place] [address] Referral ID Status Reason Start Date Expiration Date Visits Requested Visits Authorized [id number] Pending Review Auto-Generat ed Referral 03/26/2022 03/26/2023 1 1 Specialty Diagnoses / Procedures Referred By Contac t Referred To Contact MR IMAGING Diagnoses Pain in hip Procedures MRI HIP WO IVCON RT MRI ANY JT LOWER EXTREM W/O CONTRAST MATRL Salbador Cohen V, DO [address] [place] [address] Mr Imaging Referral ID Status Reason Start Date Expiration Date V isits Requested Visits Authorized [id number] Closed Auto-Generate d Referral 05/14/2022 07/16/2022 1 1 Specialty Diagnoses / Procedures Referred By Contac t Referred To Contact [facility] [place] Diagnoses Acetabular labrum tear, right, subsequent encounter Procedures CONSULT TO [facility] FOR PAIN RECOVERY (CHRONIC PAIN) OFFICE/OUTPATIENT [facility] MDM 60-74 MINUTES Salbador Cohen V, DO [address] [place] [address] Referral ID Status Reason Start Date Expiration Date Visits Requested Visits Authorized [id number] Pending Review PCP Requested Referral 06/25/2022 06/25/2023 1 1 Specialty Diagnoses / Procedures Referred By Contac t Referred To Contact [facility] Diagnoses Tear of right acetabular labrum, initial encounter Procedures CONSULT TO PHYSICAL THERAPY PHYSICAL THERAPY EVALUATION HIGH COMPLEX [address] [place] [address] [place] [address] [facility] [place] [address] [place] [address] Referral ID Status Reason Start Date Expiration Date Visits Requested Visits Authorized [id number] Pending Review Auto-Generat ed Referral 10/14/2022 10/14/2023 1 1 Specialty Diagnoses / Procedures Referred By Contac t Referred To Contact Diagnoses Right hip impingement syndrome Procedures CT HIP RIGHT WITHOUT CONTRAST WITH 3D FOR SURGICAL PLANNING [place] CT SCAN,LOWER EXTREMITY,W/O CONTRAST Yanet Carolina MD [address] [place] [address] Referral ID Status Reason Start Date Expiration Date V isits Requested Visits Authorized [id number] New Request 05/09/2023 06/02/2024 1 1 Specialty Diagnoses / Procedures Referred By Dayana shearer Referred To Contact [facility] Diagnoses Right hip impingement syndrome Miah Centeno, PAC [address] [place] [address] Referral ID Status Reason Start Date Expiration Date V isits Requested Visits Authorized [id number] New Request 05/27/2023 06/20/2024 1 1 Scheduling Instructions [facility] at [address] Room: [address] [id number] FAX [facility] [place] [address] [facility] [address] [place] [address] FAX [facility] at [facility] [address] [place], [place] [phone] FAX [facility] at Outpatient [facility] [place] [address] [facility] [facility] [address] [place], [place] [address] FAX [facility] [address] [facility], [address] [place] [address] FAX Outpatient Rehabilitation Outpatient [facility] [place] [address] [facility] [facility], [address] [place], [place] [phone] FAX [facility] [address] [place] [address] FAX Continued on next page [facility] [place] [address] [facility], [address] [place], [place] [id number] FAX [facility] [address] [place] [address] FAX Outpatient Rehabilitation Outpatient [facility] [place] [address] [facility] [address] [place] [address] FAX [facility] at [facility] [address] [place] [address] FAX [facility]patient [facility] [place] [address] [place] [address] FAX [facility] at [facility], Room [address] [place] [address] FAX Referral ID Status Reason Start Date Expiration Date Visits Re quested Visits Authorized [id number] Closed 05/09/2023 06/02/2024 1 1 Specialty Diagnoses / Procedures Referred By Contac t Referred To Contact Procedures US IMAGING OR Raymond Archer MD [address] [place] [address] Referral ID Status Reason Start Date Expiration Date V isits Requested Visits Authorized [id number] New Request 06/28/2023 07/22/2024 1 1 Specialty Diagnoses / Procedures Referred By Contac t Referred To Contact Diagnoses Class 3 severe obesity with serious comorbidity and body mass index (BMI) of 50.0 to 59.9 in adult, unspecified obesity type (HCC) Procedures CONSULT [facility] OFFICE/OUTPATIENT NEW HIGH MDM 60-74 MINUTES Tiffanie Schmidt, MAST MAKER.INSEAM LEVELER [address] [place] [address] Referral ID Status Reason Start Date Expiration Date Visits Requested Visits Authorized [id number] Authorized PCP Requested Referral 08/09/2023 08/08/2024 1 1 Additional Source Comments INFORMATION SOURCE (unrecogn ized section and content) DATE CREATED AUTHOR 03/28/2018 [facility] DATE CREATED AUTHOR AUTHOR'S ORGANIZ ATION 09/10/2018 [facility] DATE CREATED AUTHOR AUTHOR'S ORGANIZ ATION 11/08/2020 [facility] ([place]) DATE CREATED AUTHOR AUTHOR'S ORGANIZ ATION 04/16/2021 [facility] DATE CREATED AUTHOR AUTHOR'S ORGANIZ ATION 07/03/2022 [facility] DATE CREATED AUTHOR AUTHOR'S ORGANIZ ATION 07/07/2022 [facility] DATE CREATED AUTHOR AUTHOR'S ORGANIZ ATION 07/15/2023 [facility] DATE CREATED AUTHOR AUTHOR'S ORGANIZ ATION 04/20/2024 [facility] DATE CREATED AUTHOR AUTHOR'S ORGANIZ ATION 03/01/2025 [facility] DATE CREATED AUTHOR AUTHOR'S ORGANIZ ATION 03/28/2025 [facility] DATE CREATED AUTHOR AUTHOR'S ORGANIZ ATION 05/04/2025 [facility] DATE CREATED AUTHOR AUTHOR'S ORGANIZ ATION 05/18/2025 [facility] Source Comments (unrecognize d section and content) In the event this informatio n is protected by the Federal Confidentiality of Alcohol and Drug Abuse Patient Records regulations: The Federal rules restrict any use of the information to criminally investigate or prosecute any alcohol or drug abuse patient.[facility] HospitalIn the event this information is protected by the Federal Confidentiality of Alcohol and Drug Abuse Patient Records regulations: The Federal rules restrict any use of the information to criminally investigate or prosecute any alcohol or drug abuse patient.[facility] HospitalIn the event this information is protected by the Federal Confidentiality of Alcohol and Drug Abuse Patient Records regulations: The Federal rules restrict any use of the information to criminally investigate or prosecute any alcohol or drug abuse patient.[facility] HospitalIn the event this information is protected by the Federal Confidentiality of Alcohol and Drug Abuse Patient Records regulations: The Federal rules restrict any use of the information to criminally investigate or prosecute any alcohol or drug abuse patient.[facility] HospitalIn the event this information is protected by the Federal Confidentiality of Alcohol and Drug Abuse Patient Records regulations: The Federal rules restrict any use of the information to criminally investigate or prosecute any alcohol or drug abuse patient.[facility] HospitalIn the event this information is protected by the Federal Confidentiality of Alcohol and Drug Abuse Patient Records regulations: The Federal rules restrict any use of the information to criminally investigate or prosecute any alcohol or drug abuse patient.[facility] HospitalIn the event this information is protected by the Federal Confidentiality of Alcohol and Drug Abuse Patient Records regulations: The Federal rules restrict any use of the information to criminally investigate or prosecute any alcohol or drug abuse patient.[facility] HospitalIn the event this information is protected by the Federal Confidentiality of Alcohol and Drug Abuse Patient Records regulations: The Federal rules restrict any use of the information to criminally investigate or prosecute any alcohol or drug abuse patient.[facility] HospitalIn the event this information is protected by the Federal Confidentiality of Alcohol and Drug Abuse Patient Records regulations: The Federal rules restrict any use of the information to criminally investigate or prosecute any alcohol or drug abuse patient.[facility] HospitalIn the event this information is protected by the Federal Confidentiality of Alcohol and Drug Abuse Patient Records regulations: The Federal rules restrict any use of the information to criminally investigate or prosecute any alcohol or drug abuse patient.[facility] HospitalIn the event this information is protected by the Federal Confidentiality of Alcohol and Drug Abuse Patient Records regulations: The Federal rules restrict any use of the information to criminally investigate or prosecute any alcohol or drug abuse patient.[facility] HospitalIn the event this information is protected by the Federal Confidentiality of Alcohol and Drug Abuse Patient Records regulations: The Federal rules restrict any use of the information to criminally investigate or prosecute any alcohol or drug abuse patient.[facility] HospitalIn the event this information is protected by the Federal Confidentiality of Alcohol and Drug Abuse Patient Records regulations: The Federal rules restrict any use of the information to criminally investigate or prosecute any alcohol or drug abuse patient.[facility] HospitalIn the event this information is protected by the Federal Confidentiality of Alcohol and Drug Abuse Patient Records regulations: The Federal rules restrict any use of the information to criminally investigate or prosecute any alcohol or drug abuse patient.[facility] HospitalIn the event this information is protected by the Federal Confidentiality of Alcohol and Drug Abuse Patient Records regulations: The Federal rules restrict any use of the information to criminally investigate or prosecute any alcohol or drug abuse patient.[facility] HospitalIn the event this information is protected by the Federal Confidentiality of Alcohol and Drug Abuse Patient Records regulations: The Federal rules restrict any use of the information to criminally investigate or prosecute any alcohol or drug abuse patient.[facility] HospitalIn the event this information is protected by the Federal Confidentiality of Alcohol and Drug Abuse Patient Records regulations: The Federal rules restrict any use of the information to criminally investigate or prosecute any alcohol or drug abuse patient.[facility] HospitalIn the event this information is protected by the Federal Confidentiality of Alcohol and Drug Abuse Patient Records regulations: The Federal rules restrict any use of the information to criminally investigate or prosecute any alcohol or drug abuse patient.[facility] HospitalIn the event this information is protected by the Federal Confidentiality of Alcohol and Drug Abuse Patient Records regulations: The Federal rules restrict any use of the information to criminally investigate or prosecute any alcohol or drug abuse patient.[facility] HospitalIn the event this information is protected by the Federal Confidentiality of Alcohol and Drug Abuse Patient Records regulations: The Federal rules restrict any use of the information to criminally investigate or prosecute any alcohol or drug abuse patient.[facility] Reason for Visit (unrecogniz ed section [...] NEW HIGH MDM 60-74 MINUTES Tiffanie Schmidt, FABIAN.INSEAM LEVELER [address] [place] [address] Referral ID Status Reason Start Date Expiration Date V isits Requested Visits Authorized [id number] Closed PCP Requested Referral 11/13/2021 11/13/2022 1 1 Reason Comments New Patient Right hip pain Reason Comments Ovarian Cyst Specialty Diagnoses / Procedures Referred By Dayana shearer Referred To Contact MR IMAGING Diagnoses Pain in hip Procedures MRI HIP WO IVCON RT MRI ANY JT LOWER EXTREM W/O CONTRAST Salbador Alberto, Toña, DO [address] [place] [address] Mr Imaging Referral ID Status Reason Start Date Expiration Date V isits Requested Visits Authorized [id number] Closed Auto-Generate d Referral 05/14/2022 07/16/2022 1 1 Reason Comments Results Reason Comments Pain Reason Comments Winder Helper - Other Schedule Surgery Reason Comments New Patient Reason Comments Winder Helper - Other Schedule Surgery Preparations For Surgery Reason Comments Pre-Op Visit Reason Comments Preparations For Surgery Reason Comments Winder Helper - Other Reason Comments Pain 28 y.o. female c/o R hip pain. NKI. Pain located: anterior hip, groin, some lateral hip. Duration: 3-4 yrs. Pain 6/10, described as sharp/dull/achy/throbbing. Aggravated with prolonged sitting/standing/walking, stairs up>down, in/out of car, laying on R side (+) n/t-B/L legs into feet R>L, mechanical sx-clicking, popping, locking. Pain relief with nothing. [facility] [place] [facility] [place] Tx: Percocet 5-325 mg 1 tab 2x/day for pain PRN, stretching, HEP Specialty Diagnoses / Procedures Referred By Dayana shearer Referred To Contact Orthopaedics Diagnoses Tear of right acetabular labrum, initial encounter Tia Núñez MD [address] [place] [address] [facility] [address] [place] [address] Referral ID Status Reason Start Date Expiration Date V isits Requested Visits Authorized [id number] New Request 03/31/2023 04/24/2024 1 1 Reason Comments Pre-operative Evaluation Pre-op R hip sc ope (DOS: 06/28/23). Pt states that pain is worse at night and when driving. 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 [address] [place] [address] Referral ID Status Reason Start Date Expiration Date Visits Re quested Visits Authorized [id number] 1 Reason Onset Date Comments Advice [...] an antibiotic and prednisone. Reason Comments Annual Corporate Ethics Officer Exam Reason Comments Obesity Care Teams (unrecognized sec tion and content) Business Division Chair Relationship Specialty Start Date End Date Petra Morales [id number] [place] [address] PCP - General Pediatrics 01/28/11 Business Division Chair Relationship Specialty Start Date End Date Petra Morales [address] [place] [address] PCP - General Pediatrics 01/28/11 Business Division Chair Relationship Specialty Start Date End Date Petra Morales Enrique [address] [place] [address] [phone] PCP - General Pediatrics 01/28/11 Business Division Chair Relationship Specialty Start Date End Date Petra Morales Enrique [address] [place] [address] PCP - General Pediatrics 01/28/11 Business Division Chair Relationship Specialty Start Date End Date Petra Morales Enrique [address] [place] [address] PCP - General Pediatrics 01/28/11 Business Division Chair Relationship Specialty Start Date End Date Petra Morales Enrique [address] [place] [address] PCP - General Pediatrics 01/28/11 Business Division Chair Relationship Specialty Start Date End Date Petra Morales Enrique [address] [place] [address] PCP - General Pediatrics 01/28/11 Business Division Chair Relationship Specialty Start Date End Date Petra Morales Enrique [address] [place] [address] PCP - General Pediatrics 01/28/11 Business Division Chair Relationship Specialty Start Date End Date Petra Morales Enrique [address] [place] [address] PCP - General Pediatrics 01/28/11 Business Division Chair Relationship Specialty Start Date End Date Petra Morales Enrique [address] [place] [address] PCP - General Pediatrics 01/28/11 Business Division Chair Relationship Specialty Start Date End Date Petra Morales Enrique [address] [address] PCP - General Pediatrics 01/28/11 Business Division Chair Relationship Specialty Start Date End Date Tia Núñez, INSEAM LEVELER [address] [place] [address] PCP - General Family Medicine 10/28/22 Business Division Chair Relationship Specialty Start Date End Date Tia Núñez, INSEAM LEVELER [address] [place] [address] PCP - General Family Medicine 10/28/22 Business Division Chair Relationship Specialty Start Date End Date Tia Núñez, INSEAM LEVELER [address] [place] [address] PCP - General Family Medicine 10/28/22 Business Division Chair Relationship Specialty Start Date End Date Tia Núñez, INSEAM LEVELER [address] [place] [address] PCP - General Family Medicine 10/28/22 Business Division Chair Relationship Specialty Start Date End Date Tia Núñez MD [address] [place] [phone] PCP - General Nurse Practitioner - Family 05/16/23 Business Division Chair Relationship Specialty Start Date End Date Tia Núñez MD [address] [place] [phone] PCP - General Nurse Practitioner - Family 05/16/23 Business Division Chair Relationship Specialty Start Date End Date Tia Núñez, INSEAM LEVELER [address] [place] [address] PCP - General Family Medicine 10/28/22 Business Division Chair Relationship Specialty Start Date End Date Tia Núñez MD [address] [place] [phone] PCP - General Nurse Practitioner - [facility] 05/16/23 Business Division Chair Relationship Specialty Start Date End Date Tia Núñez MD [address] [place] [phone] PCP - General Nurse Practitioner - [facility] 05/16/23 Business Division Chair Relationship Specialty Start Date End Date Tia Núñez MD [address] [place] [address] PCP - General Nurse Practitioner - [facility] 05/16/23 Business Division Chair Relationship Specialty Start Date End Date Tia Núñez MD [address] [place] [address] PCP - General Nurse Practitioner - [facility] 05/16/23 Business Division Chair Relationship Specialty Start Date End Date Tia Núñez INSEAM LEVELER [address] [place] [address] PCP - General Family [facility] 10/28/22 Business Division Chair Relationship Specialty Start Date End Date Tia Núñez INSEAM LEVELER [address] [place] [address] PCP - General Family Medicine 10/28/22 Team Status: Active Member Role Status Dates ARAM JORDAN MD Primary Care Provider Active Start: December 13, 2024 VIET MARIA MD Emergency Provider Active Start: December 13, 2024 DOMO LE next of kin Active JESSICA ACUNA Guarantor Active Team Status: Active Member Role Status Dates VANESA SOLANO MD Primary Care Provider Active Start: February 03, 2025 MARY VAZQUEZ MD Emergency Provider Active Star t: February 03, 2025 DOMO LE next of kin Active JESSICA ACUNA , A Guarantor Active Team Status: Active Member Role Status Dates Tia Ungerer , LEARNING SUPPORT TEACHER-C Primary Care Provider Active Team Status: Inactive Member Role Status Dates Tiajuanjose Osorioerer , LEARNING SUPPORT TEACHER-C Primary Care Provider Active Start: February 26, 2025 End: February 26, 2025 Dr. Nino Sánchez , Emergency Provider Active Start: February 26, 2025 End: February 26, 2025 Team Status: Inactive Member Role Status Dates Tia Yoonr , LEARNING SUPPORT TEACHER-C Primary Care Provider Active Start: February 26, 2025 End: February 26, 2025 Dr. Nino Sánchez DO Attending Provider Active Start: February 26, 2025 End: February 26, 2025 Dr. Nino Sánchez , Emergency Provider Active Start: February 26, 2025 End: February 26, 2025 Team Status: Inactive Member Role Status Dates Tia Ungerer , LEARNING SUPPORT TEACHER-C Primary Care Provider Active Start: March 08, 2025 End: March 08, 2025 Tia Ungerer , LEARNING SUPPORT TEACHER-C Attending Provider Active Start: March 08, 2025 End: March 08, 2025 Tia Ungerer , LEARNING SUPPORT TEACHER-C Referring Provider Active Start: March 08, 2025 End: March 08, 2025 Team Status: Inactive Member Role Status Dates Tia Ungerer , LEARNING SUPPORT TEACHER-C Primary Care Provider Active Start: March 15, 2025 End: March 15, 2025 Tia Ungerer , LEARNING SUPPORT TEACHER-C Attending Provider Active Start: March 15, 2025 End: March 15, 2025 Tia Ungerer , LEARNING SUPPORT TEACHER-C Referring Provider Active Start: March 15, 2025 End: March 15, 2025 Team Status: Inactive Member Role Status Dates Jocelyn Gunn LEARNING SUPPORT TEACHER-C Attending Provider Active S tart: March 22, 2025 End: March 22, 2025 Tia Ungerer , LEARNING SUPPORT TEACHER-C Primary Care Provider Active Start: March 22, 2025 End: March 22, 2025 Tia Ungerer , LEARNING SUPPORT TEACHER-C Referring Provider Active Start: March 22, 2025 End: March 22, 2025 Team Status: Active Member Role Status Dates Tia Ungerer , LEARNING SUPPORT TEACHER-C Primary Care Provider Active Start: March 22, 2025 Tia Ungerer , LEARNING SUPPORT TEACHER-C Attending Provider Active Start: March 22, 2025 Tia Núñez , LEARNING SUPPORT TEACHER-C Referring Provider Active Start: March 22, 2025 Jocelyn Gunn LEARNING SUPPORT TEACHER-C Other Provider Active Start : March 22, 2025 Team Status: Inactive Member Role Status Dates Tia Ungerer , LEARNING SUPPORT TEACHER-C Primary Care Provider Active Start: March 23, 2025 End: March 23, 2025 Tia Ungerer , LEARNING SUPPORT TEACHER-C Attending Provider Active Start: March 23, 2025 End: March 23, 2025 Tia Osorioerer , LEARNING SUPPORT TEACHER-C Referring Provider Active Start: March 23, 2025 End: March 23, 2025 Jocelyn Gunn LEARNING SUPPORT TEACHER-C Other Provider Active Start : March 23, 2025 End: March 23, 2025 Team Status: Active Member Role/Relationship Status Dates Tia Osorioerer , LEARNING SUPPORT TEACHER-C Primary Care Provider Active Team Status: Inactive Member Role/Relationship Status Dates Tia Osorioerer , LEARNING SUPPORT TEACHER-C Primary Care Provider Active Start: February 26, 2025 End: February 26, 2025 Dr. Nino Sánchez DO Attending Provider Active Start: February 26, 2025 End: February 26, 2025 Dr. Nino Sánchez DO Emergency Provider Active Start: February 26, 2025 End: February 26, 2025 Team Status: Inactive Member Role/Relationship Status Dates Tia Ungerer , LEARNING SUPPORT TEACHER-C Primary Care Provider Active Start: March 08, 2025 End: March 08, 2025 Tia Osorioerer , LEARNING SUPPORT TEACHER-C Attending Provider Active Start: March 08, 2025 End: March 08, 2025 Tia Osorioerer , LEARNING SUPPORT TEACHER-C Referring Provider Active Start: March 08, 2025 End: March 08, 2025 Team Status: Inactive Member Role/Relationship Status Dates Tia Ungerer , LEARNING SUPPORT TEACHER-C Primary Care Provider Active Start: March 15, 2025 End: March 15, 2025 Tia Ungerer , LEARNING SUPPORT TEACHER-C Attending Provider Active Start: March 15, 2025 End: March 15, 2025 Tia Ungerer , LEARNING SUPPORT TEACHER-C Referring Provider Active Start: March 15, 2025 End: March 15, 2025 Team Status: Inactive Member Role/Relationship Status Dates Jocelyn Gunn LEARNING SUPPORT TEACHER-C Attending Provider Active S tart: March 22, 2025 End: March 22, 2025 Tia Ungerer , LEARNING SUPPORT TEACHER-C Primary Care Provider Active Start: March 22, 2025 End: March 22, 2025 Tia Ungerer , LEARNING SUPPORT TEACHER-C Referring Provider Active Start: March 22, 2025 End: March 22, 2025 Team Status: Inactive Member Role/Relationship Status Dates Tia Ungerer , LEARNING SUPPORT TEACHER-C Primary Care Provider Active Start: March 22, 2025 End: March 22, 2025 Tia Osorioerer , LEARNING SUPPORT TEACHER-C Attending Provider Active Start: March 22, 2025 End: March 22, 2025 Tia Ungerer , LEARNING SUPPORT TEACHER-C Referring Provider Active Start: March 22, 2025 End: March 22, 2025 Jocelyn Gunn , LEARNING SUPPORT TEACHER-C Other Provider Active Start : March 22, 2025 End: March 22, 2025 Team Status: Inactive Member Role/Relationship Status Dates Tia Ungerer , LEARNING SUPPORT TEACHER-C Primary Care Provider Active Start: March 23, 2025 End: March 23, 2025 Tia Ungerer , LEARNING SUPPORT TEACHER-C Attending Provider Active Start: March 23, 2025 End: March 23, 2025 Tia Osorioerer , LEARNING SUPPORT TEACHER-C Referring Provider Active Start: March 23, 2025 End: March 23, 2025 Jocelyn Gunn , LEARNING SUPPORT TEACHER-C Other Provider Active Start : March 23, 2025 End: March 23, 2025 Team Status: Inactive Member Role/Relationship Status Dates Tia Ungerer , LEARNING SUPPORT TEACHER-C Primary Care Provider Active Start: May 13, 2025 End: May 13, 2025 Tia Ungerer , LEARNING SUPPORT TEACHER-C Attending Provider Active Start: May 13, 2025 End: May 13, 2025 Tia Osorioerer , LEARNING SUPPORT TEACHER-C Referring Provider Active Start: May 13, 2025 End: May 13, 2025 Goals (unrecognized section and content) Goals [...] may be documented in an alternate section No data available for this sectionGoals may be documented in an alternate [...] ., Pre-op/Pre-Proc 0920 (Given - Provid er: JEANIE Greco) EPINEPHrine PF (ADRENALIN) 1 MG/ML injection (CANCELED) [...] Tue06/28/23 at 1107, Until Tue06/28/23 at 1445, Moderate Pain, Recovery 1159 (Given [...] BE BASED ON THE PRIMARY CLINICAL RECORDS. [employer] provides no warranty or guarantee of the accuracy or completeness of information in this document.
[2025-05-20 05:57] LABS: Internal QC Validated? YES +Cl - CLEAR BKGD; Pregnancy, Urine Negative Negative; Record Kit Lot#,Urine Preg 0000962302
[2025-05-20] MEDS: Lactated Ringers 1,000 ML 15 ML IV (06:06)
--- NOTE | 2025-05-20 06:17 | PCM.PRE.AN2 ---
ASA Classification* ASA Classification ASA Classification: 3 Assessment & Plan Anesthesia* Anesthesia Assessment Anesthesia Assessment: Discussed sedation and/or anesthesia options, risks, benefits, and alternatives with patient/parents/legal guardian/POA. Questions invited. The patient/parents/legal guardian/POA seems to understand and agrees to proceed with anesthesia plan. Reviewed the physical assessment, medical history, allergy history and patient home medications list prior to surgery/procedure/anesthetic and documented any changes. Performed airway and anesthesia risk assessments. Anesthesia Type Anesthesia Type: MAC History Source History Obtained from:: Patient and Chart Anesthesia Focused Assessment* Temperature: 97.5 F Pulse Rate: 68 Blood Pressure: 141/101 Respiratory Rate: 12 Pulse Ox: 100 Oxygen Delivery Method: Room Air Airway Assessment Mouth opens: >3 cm Mallampati Score: IV Teeth Condition: Intact Neck Range of motion (ROM): Limited ROM (Slight Decrease) Labs Anesthesia Preop lab: CBC WBC 9.4 K/mm3 (4.4-11.0) 02/26/25 14:00 02/26/25 RBC 5.52 M/mm3 (4.2-5.4) H 02/26/25 14:00 02/26/25 Hgb 16.1 g/dL (12.0-15.0) H 02/26/25 14:00 02/26/25 Hct 46.6 % (37-47) 02/26/25 14:00 02/26/25 Plt Count 286 K/mm3 (150-450) 02/26/25 14:00 02/26/25 CHEMISTRY Potassium 4.0 mmol/L (3.3-5.1) 02/26/25 14:00 02/26/25 Sodium 136 mmol/L (133-145) 02/26/25 14:00 02/26/25 BUN 11 mg/dL (4-19) 02/26/25 14:00 02/26/25 Creatinine 0.67 mg/dL (0.70-1.20) L 02/26/25 14:00 02/26/25 Glucose 100 mg/dL (70-99) H 02/26/25 14:00 02/26/25 COAG Urine Test Negative Negative 05/20/25 05:42 05/20/25 Pre-Assessment Diagnosis/Proposed Procedure Planned Operative Procedure(s): EGD/CSCOPE Anesthesia History Anesthesia History - mri technician: Anesthesia History - mri technician Hx Hospitalization Yes: ASTHMA ISSUES 05/17/25 12:19 Any Problems With Anesthesia No 05/17/25 12:19 Cholinesterase deficiency No 05/17/25 12:19 You/Your Family Experience No 05/17/25 12:19 fever (hyperthermia) with Relationship Recent Exposure to Contagious No 05/20/25 05:56 Disease Does patient have nerve No 05/17/25 12:19 stimulator Patient instructed to have device shut off --Does patient have Pacemaker No 05/20/25 05:56 or ICD? When Was Last Pacemaker Check QUESTION #4 FULL TEXT: You/Your Family Experience fever (hyperthermia) with Anesthesia Last Oral Intake Last Oral intake: Last Oral Intake NPO since 02:30 05/20/25 05:56 Meds taken in AM with sips of No 05/20/25 05:56 water? Meds patient instructed to take am of surgery Any additional information?: Yes NPO since: 02:30 Meds taken in AM with sips of water?: No PONV PONV - mri technician: PONV - mri technician Female Yes 05/17/25 12:19 HX of Motion Sickness No 05/17/25 12:19 HX of N/V After Surgery No 05/17/25 12:19 Non-Smoker Yes 05/17/25 12:19 Duration of Surgery greater No 05/17/25 12:19 than 60 minutes Number of Risk Factors 2 05/17/25 12:19 PONV Score Moderate Risk 05/17/25 12:19 Height & Weight Height & Weight: Anesthesia: Height & Weight Height 5 ft 6 in 05/20/25 05:56 Weight: 148.9 kg 05/20/25 05:56 Body Mass Index (BMI) 52.9 05/20/25 05:56 Respiratory Assessment Respiratory Assessment - mri technician: Respiratory Tract Infection Hx - mri technician Hx Respiratory Tract Infection No 05/17/25 12:19 STOP Sleep Apnea STOP Sleep Apnea - mri technician: STOP Sleep Apnea - mri technician Hx Hypertension Yes: CONTROLLED WITH MED 05/17/25 12:19 Hx Sleep Apnea No 05/17/25 12:19 CPAP BIPAP Do you snore loudly (louder No 05/17/25 12:19 than talking or can be heard Do you often feel tired/ Yes 05/17/25 12:19 fatigued/ sleepy during daytime? Has anyone observed you stop No 05/17/25 12:19 breathing during sleep? STOP Results Positive 05/17/25 12:19 QUESTION #5 FULL TEXT : Do you snore loudly (louder than talking or can be heard through closed doors)? Tobacco Use History Tobacco Use History - mri technician: Tobacco Use History - mri technician Tobacco Use Non-smoker 02/09/21 17:13 Smoking Status Never smoker 05/17/25 12:19 Hx Tobacco Use No 05/17/25 12:19 Years Smoking Packs Smoked per Day Smoking Cessation Date was within the last 15 years Hx Smoking Cessation Date Hx Smoking Cessation Counseling Hematologic Medial History Hematologic Hx - mri technician: Hematologic Medical Hx - psychiatric social worker supervisor Hx of Blood Transfusion No 05/17/25 12:19 Hx of Transfusion in last 3 No 05/17/25 12:19 Months Date of Last Transfusion (if within last 3 months) Ever experience any problems No 05/17/25 12:19 with transfusion(s)? Specify any problems Hx of Preganancy in last 3 No 05/17/25 12:19 Months Nurse Filling Out Transfusion DSCHRIBER 05/17/25 12:19 & Questions: Date: 05/17/25 05/17/25 12:19 Time: 12:21 05/17/25 12:19 Patient unable to answer at this time (ie. confused, unrespo /Reproduction History /Reproductive History - mri technician: /Reproductive Hx- mri technician Hx Now No 05/17/25 12:19 Gestational Age (in weeks): EDC: Hx Hx Para Hx Section SAB No 05/17/25 12:19 Active Medications Active Medications: Current Medications Generic Name Dose Route Start Last Admin Trade Name Freq PRN Reason Stop Dose Admin Lactated Ringer's 1,000 mls @ 15 mls/hr 05/20/25 05:45 05/20/25 06:06 IV 15 mls/hr .Q48H TOÑO Administration PFSH Medical History Wears glasses History of steroid therapy Back pain History of IBS Shortness of breath on exertion History of pain when walking History of edema Depression PCOS (polycystic ovarian syndrome) Hypertension Anxiety Colitis Non-smoker GERD (gastroesophageal reflux disease) Home Medications ?Medication ?Instructions ?Recorded ?Last Taken ?Type levonorgestrel (Mirena) 1 insert intrauterine ONCE 11/26/21 Unknown History Nebulizer machine #1 ea 06/18/24 Unknown Rx duloxetine 60 mg capsule,delayed 60 mg PO DAILY #90 caps 03/08/25 05/18/25 Rx release losartan 50 mg-hydrochlorothiazide 1 tab PO DAILY #90 tabs 03/08/25 05/19/25 Rx 12.5 mg tablet trazodone 50 mg tablet 50 mg PO QHS #60 tabs 03/08/25 Unknown Rx naproxen 500 mg tablet 500 mg PO BID PRN pain #30 tabs 03/14/25 Unknown Rx albuterol sulfate 2.5 mg/3 mL 2.5 mg (3 mL) inhalation Q4H PRN 03/15/25 Unknown Rx (0.083 %) solution for nebulization shortness of breath or wheezing #180 mL albuterol sulfate 90 mcg/actuation 2 puff inhalation Q4H PRN 03/15/25 Unknown Rx aerosol inhaler (Ventolin HFA) shortness of breath or wheezing #8.5 grams famotidine 40 mg tablet 40 mg PO QHS #30 tabs 03/22/25 05/17/25 Rx pantoprazole 40 mg tablet,delayed 40 mg PO BID #60 tabs 03/22/25 05/17/25 Rx release budesonide-formoterol HFA 80 2 puff inhalation DAILY 05/20/25 05/20/25 History mcg-4.5 mcg/actuation aerosol inhaler (Symbicort) Allergy/AdvReac Type Severity Reaction Status Date / Time Penicillins Allergy rash Verified 05/20/25 05:53 Family History Father CVA (cerebral vascular accident) Mother Intrinsic asthma Grandfather Diabetes COPD (chronic obstructive pulmonary disease) Surgical History History of hip surgery S/P cholecystectomy History of tonsillectomy History of foot surgery Social History Smoking Status: Never smoker alcohol intake: never substance use type: does not use caffeine: Yes what type of physical activity do you participate in: none seatbelt use: always do you feel safe at home: Yes Review of Systems (Anesthesia) ROS Narrative System reviewed and no additional complaints, except as documented. Physical Exam Resp clear to auscultation bilaterally
--- NOTE | 2025-05-20 06:30 | EGD_PTH ---
PATIENT: JESSICA ACUNA LOC: EN U#:[id number] AGE/SX: 30/F ROOM: RE05/20/[address]: Dr. Carlos Dawn DO : 1995 BED: DIS: 05/20/2025 SPEC #: [id number] RECD: 05/20/25 09:58 STATUS: SILAS REAnia #: [id number] YANNA: 05/20/25 06:[address]: Carols Dawn DEPT: SURGICAL PATHOLOGY RECD BY: Marino Gerard ENTERED: 05/20/25 10:58 SP TYPE: EGD BIOPSY OT DR: Tia Parra, BRIDAL GOWN FITTER-C Tissues: A - Duodenum, NOS B - Gastric mucous membrane C - Esophagus, NOS D - Ileum, NOS E - COLON BIOPSY F - Sigmoid colon biopsy Procedures: Immunohistochemical Stains Surgery Specimen Level IV HEADER OPERATION: Colonoscopy with biopsy, EGD with biopsy PRE-OP DIAGNOSIS: Diarrhea, nausea, acute right flank pain, abdominal pain TISSUE SUBMITTED: A- Duodenum biopsy, B- Gastric body biopsy, C- Distal esophagus biopsy, D- Terminal ileum biopsy, E- Random colon biopsy, F- Sigmoid colon polyp biopsy MICROSCOPIC DIAGNOSIS A. Duodenum, biopsy: - Normal villous architecture with mildly increased intraepithelial lymphocytes - see note. Note: This pattern of injury is etiologically nonspecific and the differential diagnosis includes sensitivity to gluten and non-gluten proteins, small intestinal bacterial overgrowth, stasis related changes, infection, protein calorie malnutrition, tropical sprue, and medication injury (NSAIDs, Olmesartan / Benicar, Mycophenolic acid, Idelalisib, for example). If celiac disease is a clinical concern, additional clinical studies, such as tTG-IgA, are recommended. B. Gastric body, biopsy: - Features of reactive gastropathy. - IHC negative for H. pylori organisms. C. Distal esophagus, biopsy: - Squamous mucosa with reactive changes and two eosinophils per high power field. - Columnar mucosa negative for goblet cell metaplasia. D. Terminal ileum, biopsy: - Villous architecture with mucosal lymphoid aggregates, favor reactive. E. Colon, random biopsy: - No specific pathologic change. - The histologic features of microscopic colitis are not demonstrated. F. Sigmoid colon, polyp, biopsy: - Tubular adenoma. MICROSCOPIC DESCRIPTION Slides are reviewed. All matched controls reacted appropriately. These tests were developed and their performance characteristics determined by [facility]. They may not have been cleared or approved by the U.S. Food and Drug Administration. The FDA has determined that such clearance or approval is not necessary. The above immunohistochemical/dualISH markers are viewed by the Pathologist. GROSS DESCRIPTION A. Received in fixative is one container labeled with the patient's name and designated Duodenum biopsy. The specimen consists of two irregular fragments of light hector soft tissue that measure <0.1 and 0.4 cm. Smallest fragment may not survive processing. The specimen is totally submitted in one cassette. B. Received in fixative is one container labeled with the patient's name and designated Gastric body biopsy. The specimen consists of two irregular fragments of light hector soft tissue that measure 0.5 and 0.7 cm. The specimen is totally submitted in one cassette. C. Received in fixative is one container labeled with the patient's name and designated Distal esophagus biopsy. The specimen consists of two irregular fragments of light hector soft tissue that measure 0.3 and 0.5 cm. The specimen is totally submitted in one cassette. D. Received in fixative is one container labeled with the patient's name and designated Terminal ileum biopsy. The specimen consists of four irregular fragments of light hector soft tissue that measure 0.1 to 0.4 cm. The specimen is totally submitted in one cassette. E. Received in fixative is one container labeled with the patient's name and designated Random colon biopsy. The specimen consists of multiple irregular fragments of light hector soft tissue that in aggregate measure 2 x 0.5 x 0.2 cm. The specimen is totally submitted in one cassette. F. Received in fixative is one container labeled with the patient's name and designated Sigmoid polyp colon biopsy. The specimen consists of two irregular fragments of light hector soft tissue that measure 0.2 and 0.5 cm. The specimen is totally submitted in one cassette. VT 05/20/2025 CPT:53571e1,09705
--- NOTE | 2025-05-20 06:35 | HP.PCM_ITS ---
[facility] - General General Date of Admission: 05/20/25 Date of Service: 05/20/25 Chief Complaint: frequent loose stools with urgency, heartburn, and abdominal pain HPI Narrative JESSICA ACUNA, is a 30 F who presents regarding frequent loose stools with urgency, heartburn, and abdominal pain. She reports daily heartburn that can get so severe it causes her to become nauseous. She states that eating may help the heartburn briefly, but then it returns. She has urgent diarrhea within 15minutes of eating. She has had her gallbladder removed due to poor ejection fraction about 5 years ago. She had been on an orange powder, that was horrible and a pill that was to help with the diarrhea but she stopped due to job and insurance changes. She had been scheduled for bidirectional endoscopies as well until she changed jobs. She denies recent stool testing. She is taking pantoprazole 40mg daily and PRN ondansetron. She reports seeing blood while wiping after BM but not in toilet water, and has excess belching. She states that her stools can be mucus-looking to watery. She states that her dad and a first cousin are dealing with colon cancer right now. She denies difficulty chewing and swallowing, constipation, and melena. 5.18.25 CT abd/pelvis w/IV con Pomerene: gallbladder absent, mucosal thickening vs under filling of the colon, nonspecific colitis cannot be excluded, 3.7 right adnexal cyst, trace free fluid in pelvis. 5..25 CT abd/pelvis w/IV con WC: Status post cholecystectomy. 4 cm x 4.2 cm right ovarian cyst. IUD seen within the uterus. [facility] Medical History Wears glasses History of steroid therapy Back pain History of IBS Shortness of breath on exertion History of pain when walking History of edema Depression PCOS (polycystic ovarian syndrome) Hypertension Anxiety Colitis Non-smoker GERD (gastroesophageal reflux disease) Home Medications ?Medication ?Instructions ?Recorded ?Last Taken ?Type levonorgestrel (Mirena) 1 insert intrauterine ONCE 0 11/26/21 Unknown History Nebulizer machine #1 ea 06/18/24 Unknown Rx duloxetine 60 mg capsule,delayed 60 mg PO DAILY #90 ca ps 03/08/25 05/18/25 Rx release losartan 50 mg-hydrochlorothiazide 1 tab PO DAILY #90 tabs 03/08/25 05/19/25 Rx 12.5 mg tablet trazodone 50 mg tablet 50 mg PO QHS #60 tabs Unknown Rx naproxen 500 mg tablet 500 mg PO BID PRN pain #30 t abs 03/14/25 Unknown Rx albuterol sulfate 2.5 mg/3 mL 2.5 mg (3 mL) inhalation Q4H PRN 03/15/25 Unknown Rx (0.083 %) solution for nebulization shortness of breat h or wheezing #180 mL albuterol sulfate 90 mcg/actuation 2 puff inhalation Q 4H PRN 03/15/25 Unknown Rx aerosol inhaler (Ventolin HFA) shortness of breath or wheezing #8.5 grams famotidine 40 mg tablet 40 mg PO QHS #30 tabs 05/17/25 Rx pantoprazole 40 mg tablet,delayed 40 mg PO BID #60 tab s 03/22/25 05/17/25 Rx release budesonide-formoterol HFA 80 2 puff inhalation DAILY 0 05/20/25 05/20/25 History mcg-4.5 mcg/actuation aerosol inhaler (Symbicort) Allergy/AdvReac Type Severity Reaction Status Date / Time Penicillins Allergy rash Verified 05/20/25 05:53 Family History Father CVA (cerebral vascular accident) Mother Intrinsic asthma Grandfather Diabetes COPD (chronic obstructive pulmonary disease) Surgical History History of hip surgery S/P cholecystectomy History of tonsillectomy History of foot surgery Social History Smoking Status: Never smoker alcohol intake: never substance use type: does not use caffeine: Yes what type of physical activity do you participate in: none seatbelt use: always do you feel safe at home: Yes ROS Constitutional Constitutional: Denies fatigue, fever(s), poor appetite, weight gain or weight loss Gastrointestinal Gastrointestinal: Denies belching, bloating, change in bowel habits, change in stool character, chewing difficulty, coffee ground emesis, constipation, 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, diarrhea, dyspepsia, dysphagia, early satiety, excessive flatus, fecal incontinence, heartburn, hematemesis, hematochezia, hemorrhoids, loose stools, melena, nausea, odynophagia, rectal bleeding, tenesmus, vomiting or weight changes Vital Signs Vital Signs Vital Signs: 05/20/25 05:56 05/20/25 05:56 05/20/25 06:23 Temperature 97.5 F L 97.5 F L Temperature Source Temporal Pulse Rate 68 68 Respiratory Rate 12 12 Respiratory Pattern Normal Blood Pressure 141/101 H 141/101 H Blood Pressure Mean 114 Blood Pressure Source Monitor Blood Pressure Position Semi-Fowlers Blood Pressure Location Right Forearm Pulse Ox 100 100 Oxygen Delivery Method Room Air Room Air Weight Weight: 328 lb 4.293 oz Body Mass Index (BMI) 52.9 Physical Exam Const alert, oriented x3, no apparent distress and healthy appearing General Appearance: cooperative GI normal to inspection, nondistended, normoactive bowel sounds, soft to palpation, non-tender and non-distended Percussion: normal to percussion Rectal Exam: deferred Results Lab / Micro Data Labs: Laboratory Results - last 24 hr 05/20/25 05:42: Urine Test Negative Assessment & Plan Assessment/Plan (1) Diarrhea: QUALIFIERS: Diarrhea type: functional diarrhea Qualified Code(s): K59.1 - Functional diarrhea (2) Nausea: (3) Acute right flank pain: (4) Abdominal pain: QUALIFIERS: Abdominal location: generalized Qualified Code(s): R10.84 - Generalized abdominal pain PLAN: Assessment and Plan Assessment and Plan (1) Nausea: Status: Acute (2) GERD (gastroesophageal reflux disease): Status: Chronic Qualifiers: Esophagitis presence: esophagitis presence not specified Qualified Code(s): K21.9 - Gastro-esophageal reflux disease without esophagitis (3) Diarrhea: Status: Acute Qualifiers: Diarrhea type: functional diarrhea Qualified Code(s): K59.1 - Functional diarrhea (4) Abdominal pain: Status: Acute Qualifiers: Abdominal location: generalized Qualified Code(s): R10.84 - Generalized abdominal pain Orders: Orders Allergen, Food Profile 14 Today K21.9 - Gastro-esophageal reflux disease without esophagitis, R10.9 - Unspecified abdominal pain, R11.0 - Nausea, R19.7 - Diarrhea, unspecified VIN Comprehensive Panel Today K21.9 - Gastro-esophageal reflux disease without esophagitis, R10.9 - Unspecified abdominal pain, R11.0 - Nausea, R19.7 - Diarrhea, unspecified Calprotectin, Stool Today K21.9 - Gastro-esophageal reflux disease without esophagitis, R10.9 - Unspecified abdominal pain, R11.0 - Nausea, R19.7 - Diarrhea, unspecified Celiac Disease Profile Today K21.9 - Gastro-esophageal reflux disease without esophagitis, R10.9 - Unspecified abdominal pain, R11.0 - Nausea, R19.7 - Diarrhea, unspecified CRP Today K21.9 - Gastro-esophageal reflux disease without esophagitis, R10.9 - Unspecified abdominal pain, R11.0 - Nausea, R19.7 - Diarrhea, unspecified IBD Expanded Profile Today K21.9 - Gastro-esophageal reflux disease without esophagitis, R10.9 - Unspecified abdominal pain, R11.0 - Nausea, R19.7 - Diarrhea, unspecified Immunoglobulins G/A/M/E Today K21.9 - Gastro-esophageal reflux disease without esophagitis, R10.9 - Unspecified abdominal pain, R11.0 - Nausea, R19.7 - Diarrhea, unspecified Pancreatic Elastase, Fecal Today K21.9 - Gastro-esophageal reflux disease without esophagitis, R10.9 - Unspecified abdominal pain, R11.0 - Nausea, R19.7 - Diarrhea, unspecified Medications: New colesevelam (WelChol) 1,875 mg (3 x 625 mg) PO BID 1 month 180 tabs 0RF pantoprazole take 30minutes before eating breakfast and dinner. 40 mg PO BID 60 tabs 3RF famotidine 40 mg PO QHS 30 tabs 3RF Plan JESSICA ACUNA, is a 30 F who presents to the office today for establishment with [facility] regarding frequent loose stools with urgency, heartburn, and abdominal pain. * blood for food allergies, IBD, celiac * stool for calprotectin, pancreatic elastase * colesevelam 1875mg PO BID, 1hr after other medications * increase pantoprazole 40mg PO to twice daily 30minutes before eating breakfast and dinner * add famotidine 40mg PO QHS * schedule bidirectional endoscopies * office FU 1wk after endoscopies
--- NOTE | 2025-05-20 07:24 | OP.EGD_ITS ---
Patient Name: Maryan Hogan Procedure Date: 05/20/2025 6:19 AM Date of : 1995 Age: 30 Procedure: Upper GI endoscopy Indications: Epigastric abdominal pain, Functional Dyspepsia, Indigestion, Heartburn, Suspected esophageal reflux Providers: Carlos Dawn DO Referring MD: Jose Bernard Medicines: Monitored Anesthesia Care Patient Profile: This is a 30 year old female. Refer to note in patient chart for documentation of history and physical. Patient has symptoms of chronic global abdominal pain, chronic dyspepsia, chronic nausea and chronic vomiting. Complications: No immediate complications. Procedure: Pre-Anesthesia Assessment: - Prior to the procedure, a History and Physical was performed, and patient medications and allergies were reviewed. The patient is competent. The risks and benefits of the procedure and the sedation options and risks were discussed with the patient. All questions were answered and informed consent was obtained. Patient identification and proposed procedure were verified by the physician in the pre-procedure area. Mental Status Examination: alert and oriented. Airway Examination: normal oropharyngeal airway and neck mobility. Respiratory Examination: clear to auscultation. CV Examination: normal. ASA Grade Assessment: II - A patient with mild systemic disease. After reviewing the risks and benefits, the patient was deemed in satisfactory condition to undergo the procedure. The anesthesia plan was to use monitored anesthesia care (MAC). Immediately prior to administration of medications, the patient was re-assessed for adequacy to receive sedatives. The heart rate, respiratory rate, oxygen saturations, blood pressure, adequacy of pulmonary ventilation, and response to care were monitored throughout the procedure. The physical status of the patient was re-assessed after the procedure. After obtaining informed consent, the endoscope was passed under direct vision. Throughout the procedure, the patient's blood pressure, pulse, and oxygen saturations were monitored continuously. The Colonoscope was introduced through the mouth, and advanced to the fourth part of the duodenum. Small bowel enteroscopy was deemed necessary. The upper GI endoscopy was accomplished with ease. The patient tolerated the procedure well. Scope In: 6:52:51 AM Scope Out: 6:56:33 AM Total Procedure Duration Time 0 hours 3 minutes 42 seconds Findings: LA Grade A (one or more mucosal breaks less than 5 mm, not extending between tops of 2 mucosal folds) esophagitis with no bleeding was found 35 to 40 cm from the incisors. Biopsies were taken with a cold forceps for histology. Verification of patient identification for the specimen was done. Estimated blood loss was minimal. Diffuse mildly erythematous mucosa without bleeding was found in the entire examined stomach. Biopsies were taken with a cold forceps for histology. Verification of patient identification for the specimen was done. Estimated blood loss was minimal. Biopsies were taken with a cold forceps for Helicobacter pylori testing. Verification of patient identification for the specimen was done. Estimated blood loss was minimal. Bilious fluid was found in the gastric body. Diffuse moderately erythematous mucosa without active bleeding and with no stigmata of bleeding was found in the entire duodenum. Biopsies were taken with a cold forceps for histology. Verification of patient identification for the specimen was done. Estimated blood loss was minimal. Impression: - LA Grade A erosive esophagitis with no bleeding. Biopsied. - Erythematous mucosa in the stomach. Biopsied. - Bilious gastric fluid. - Erythematous duodenopathy. Biopsied. Recommendation: - Discharge patient to home. - Resume previous diet. - Continue present medications. - Await pathology results. Procedure Code(s): --- Professional --- 46531, Small intestinal endoscopy, enteroscopy beyond second portion of duodenum, not including ileum; with biopsy, single or multiple CPT copyright 2021 [employer]. All rights reserved. The codes documented in this report are preliminary and upon child care associate review may be revised to meet current compliance requirements. Carlos Dawn DO 05/20/2025 7:23:57 AM This report has been signed electronically. Number of Addenda: 0 Note Initiated On: 05/20/2025 6:19 AM
--- NOTE | 2025-05-20 07:25 | OP.PROVAT_ITS ---
05/20/2025 Jose Bernard Re : Upper GI endoscopy procedure for Maryan Hogan Dear Np. Parra This procedure was performed on Tuesday, May 20, 2025. My impressions and recommendations are as follows: Impressions : - LA Grade A erosive esophagitis with no bleeding. Biopsied. - Erythematous mucosa in the stomach. Biopsied. - Bilious gastric fluid. - Erythematous duodenopathy. Biopsied. Recommendations : - Discharge patient to home. - Resume previous diet. - Continue present medications. - Await pathology results. My findings are described in the full procedure note, which is enclosed. If I can be of further assistance, please feel free to contact me at . Sincerely, Carlos Dawn, 05/20/2025 7:23:57 AM This report has been signed electronically.
--- NOTE | 2025-05-20 07:25 | PCM.POST.ANE ---
Anesthesia: Postop Eval I Current Vital Signs Temperature: 98.1 F Pulse Rate: 81 Blood Pressure: 115/71 Respiratory Rate: 16 Pulse Ox: 99 Oxygen Delivery Method: Room Air Assessment Airway patent: Yes Spontaneous unlabored respirations: Yes Mental status: Awake and Calm nausea: No Vomiting: No Anesthesia Complication: No Fluid Hydration Crystalloid volume administer (ml): 400 Total IV fluid infused: 400 Progress Note Anesthesia document: Postop Eval 1 completed: Yes
--- NOTE | 2025-05-20 07:28 | OP.COLON_ITS ---
Patient Name: Maryan Hogan Procedure Date: 05/20/2025 6:56 AM Date of : 1995 Age: 30 Procedure: Colonoscopy Indications: Generalized abdominal pain, Clinically significant diarrhea of unexplained origin Providers: Carlos Dawn DO Referring MD: Jose Bernard Medicines: Monitored Anesthesia Care Patient Profile: This is a 30 year old female. Refer to note in patient chart for documentation of history and physical. Patient has symptoms of chronic global abdominal pain, chronic dyspepsia, chronic nausea and chronic vomiting. Last Colonoscopy: none. The patient's first colonoscopy is today. Complications: No immediate complications. Procedure: Pre-Anesthesia Assessment: - Prior to the procedure, a History and Physical was performed, and patient medications and allergies were reviewed. The patient is competent. The risks and benefits of the procedure and the sedation options and risks were discussed with the patient. All questions were answered and informed consent was obtained. Patient identification and proposed procedure were verified by the physician in the pre-procedure area. Mental Status Examination: alert and oriented. Airway Examination: normal oropharyngeal airway and neck mobility. Respiratory Examination: clear to auscultation. CV Examination: normal. ASA Grade Assessment: II - A patient with mild systemic disease. After reviewing the risks and benefits, the patient was deemed in satisfactory condition to undergo the procedure. The anesthesia plan was to use monitored anesthesia care (MAC). Immediately prior to administration of medications, the patient was re-assessed for adequacy to receive sedatives. The heart rate, respiratory rate, oxygen saturations, blood pressure, adequacy of pulmonary ventilation, and response to care were monitored throughout the procedure. The physical status of the patient was re-assessed after the procedure. After I obtained informed consent, the scope was passed under direct vision. Throughout the procedure, the patient's blood pressure, pulse, and oxygen saturations were monitored continuously. The Colonoscope was introduced through the anus and advanced to the terminal ileum. The colonoscopy was performed without difficulty. The patient tolerated the procedure well. Scope In: 6:59:06 AM Scope Withdrawal Time 0 hours 11 minutes 31 seconds Scope Out: 7:12:51 AM Total Procedure Duration Time 0 hours 13 minutes 45 seconds Findings: The perianal and digital rectal examinations were normal. A 5 mm polyp was found in the sigmoid colon. The polyp was sessile. The polyp was removed with a jumbo cold forceps. Resection and retrieval were complete. Verification of patient identification for the specimen was done. Estimated blood loss was minimal. An area of mildly congested mucosa was found in the sigmoid colon, at the hepatic flexure and in the ascending colon. Biopsies were taken with a cold forceps for histology. Verification of patient identification for the specimen was done. Estimated blood loss was minimal. A patchy area of the terminal ileum was congested. Estimated blood loss: none. Several biopsies were obtained with cold forceps for histology randomly. Verification of patient identification for the specimen was done. Estimated blood loss was minimal. Impression: - One 5 mm polyp in the sigmoid colon, removed with a jumbo cold forceps. Resected and retrieved. - Congested mucosa in the sigmoid colon, at the hepatic flexure and in the ascending colon. Biopsied. - Congested mucosa in the terminal ileum. - Several biopsies were obtained. Recommendation: - Discharge patient to home. - Resume previous diet. - Continue present medications. - Await pathology results. - Repeat colonoscopy in 5 years for surveillance. Procedure Code(s): --- Professional --- 78515, Colonoscopy, flexible; with biopsy, single or multiple CPT copyright 2021 [employer]. All rights reserved. The codes documented in this report are preliminary and upon movement therapist review may be revised to meet current compliance requirements. Carlos Dawn DO 05/20/2025 7:28:11 AM This report has been signed electronically. Number of Addenda: 0 Note Initiated On: 05/20/2025 6:56 AM
--- NOTE | 2025-05-20 07:28 | OP.PROVAT_ITS ---
05/20/2025 Jose Bernard Re : Colonoscopy procedure for Maryan Hogan Dear Np. Parra This procedure was performed on Tuesday, May 20, 2025. My impressions and recommendations are as follows: Impressions : - One 5 mm polyp in the sigmoid colon, removed with a jumbo cold forceps. Resected and retrieved. - Congested mucosa in the sigmoid colon, at the hepatic flexure and in the ascending colon. Biopsied. - Congested mucosa in the terminal ileum. - Several biopsies were obtained. Recommendations : - Discharge patient to home. - Resume previous diet. - Continue present medications. - Await pathology results. - Repeat colonoscopy in 5 years for surveillance. My findings are described in the full procedure note, which is enclosed. If I can be of further assistance, please feel free to contact me at . Sincerely, Carlos Dawn, 05/20/2025 7:28:11 AM This report has been signed electronically.
--- NOTE | 2025-05-20 13:21 | PCM.POSTANE2 ---
Anesthesia Postop Eval I Sum Postop Eval Completion status Anesthesia document: Postop Eval 1 completed: Yes Anesthesia Postop Eval I Summary Anesthesia Postop Eval I Summary: Anesthesia Postop Eval I: Assessment Summary Airway patent Yes 05/20/25 07:26 [email or web address] Spontaneous unlabored Yes 05/20/25 07:26 [email or web address] respirations Mental status Awake,Calm 05/20/25 07:26 [email or web address] nausea No 05/20/25 07:26 [email or web address] Vomiting No 05/20/25 07:26 [email or web address] Anesthesia Postop Eval I: Fluid Summary Crystalloid volume administer 400 05/20/25 07:26 [email or web address] (ml) Colloids volume administered ( ml) Blood Product volume administered (ml) Total IV fluid infused 400 05/20/25 07:26 [email or web address] Anesthesia Postop Eval I: Summary Notes Anesthesia Complication No 05/20/25 07:26 [email or web address] Anesthesia Complication Comment: Post-operative progress note Anesthesia: Postop Eval II Evaluation Mental status: Awake and Calm Pain Level: 0 nausea: No Vomiting: No Complications Anesthesia Complication: No
== END 2025-05-20 07:56 | disposition home or self-care (01) ==
LOC: EN 05:10 → AC 05:12
PROVIDERS: Anesthesiology; PCP Nurse Practitioner Family; Referring Provider Nurse Practitioner Family; Visit Provider Internal Medicine Gastroenterology
PROC: 0DJD8ZZ Inspection of Lower Intestinal Tract, Via Natural or Artificial Opening Endoscopic (ICD-10-PCS; CPT 45378; principal; 2025-05-20 06:25)
DX: D12.5 Benign neoplasm of sigmoid colon (principal); R19.7 Diarrhea, unspecified; I10 Essential (primary) hypertension; Z90.49 Acquired absence of other specified parts of digestive tract; K21.00 Gastro-esophageal reflux disease with esophagitis, without bleeding; Z79.899 Other long term (current) drug therapy; K31.9 Disease of stomach and duodenum, unspecified
CPT/HCPCS: 45380; 43239; 81025; 88305; 88342; J2405

== ENCOUNTER 2025-07-01 12:56 | Emergency (ER) | payer MEDICAID, SELFPAY ==
[2025-07-01 12:57] VITALS: BP 155/125; PULSE 101; RESP 18; TEMP 36.9; O2SAT 99; BMI 52.6
[2025-07-01 13:17] LABS: Hematocrit 47.1 % (37-47); Hemoglobin 15.9 g/dL (12.0-15.0); Immature Granulocytes Count 0.040 X10^3/uL (0.0-0.0); Mean Corp Hgb Conc 33.8 g/dL (32-36); Mean Corpuscular Volume 84.6 fL (81-99); Mean Platelet Vol. 10.1 fl (6.2-12.0); NRBC Flagged by Analyzer 0 % (0-5); Platelet Count 295 K/mm3 (150-450); RBC Distribution Width CV 13.1 % (11.6-14.6); RBC Distribution Width SD 40.6 fl (35.1-43.9); Red Blood Count 5.57 M/mm3 (4.2-5.4); White Blood Count 10.8 K/mm3 (4.4-11.0)
[2025-07-01 13:35] LABS: Internal QC Validated? YES +Cl - CLEAR BKGD; Pregnancy, Serum, hCG Quali. NEGATIVE Negative; Record Kit Lot#, Serum Preg. 980607
[2025-07-01 14:08] LABS: AST(SGOT) 14 U/L (<=31); Alanine Aminotransfer ALT/SGPT 21 U/L (<=34); Albumin, Serum 4.1 g/dL (3.5-5.0); Alkaline Phosphatase 93 U/L (35-104); Anion Gap 12 (5-15); BUN 17 mg/dL (4-19); BUN/Creat Ratio 19.5 RATIO (10-20); Calcium,Total 9.3 mg/dL (7.6-11.0); Carbon Dioxide 20.7 mmol/L (21.0-32.0); Chloride 105 mmol/L (98-108); Estimated Creatinine Clearance 138.52 ml/min (50-250); Globulin 3.1 g/dL (2.2-4.2); Glucose 108 mg/dL (70-99); Lipase 54 U/L (13-75); Potassium 3.8 mmol/L (3.3-5.1)
--- NOTE | 2025-07-01 14:30 | EX.ED.DYSGE1 ---
HPI History of Present Illness Chief Complaint: Abd Pain Detail of Chief Complaint: Sent from OB because of elevated blood pressure. Informant: patient and other (Reviewed office notes authored by Dr. Danna Murillo) Onset/Context/Timing Onset: - (History of hypertension, history of chronic pelvic pain) Context: - (Unknown) Timing: Intermittent (The pelvic pain is intermittent. It is worse over the past several months. Patient not had a blood pressure checked recently.) Quality: Patient is presently on losartan 50 mg and hydrochlorothiazide 12.5 mg. Location: Cardiovascular and abdomen/pelvis Current Severity: Moderate Maximum Severity: Moderate Worsened by: With respect to blood pressure and pelvic pain Relieved by: Not applicable and nothing prospectively Associated Symptoms Associated Symptoms: Mild headache Narrative Narrative: Patient is a 30-year-old female. Her last normal menstrual period was 3 weeks ago. She does have a Mirena device in place. She has history of recurrent ovarian cysts. She has no history of STI. Dr. Murillo's plan was reviewed. She thought an ultrasound will be beneficial since she has not had 1 in a year. Patient denies fever, chills night sweats. She denies cardiac or respiratory symptoms. She reports right adnexal pain. It is intermittent. It is worse now. Nothing specifically makes it better or worse. She denies abnormal vaginal bleeding. She denies vaginal discharge. She states that today's office visit was to evaluate for possible surgery. Patient's blood pressure at the [facility] office was documented to be 163/112. Patient does complain of slight headache. Denies double vision, blurred vision loss of vision. Eyes ringing ears decreased hearing. Denies trouble with speech or swallowing. She denies paresthesia, anesthesia or weakness in her upper or lower extremities. Patient has problems with balance. Prior similar symptoms: Yes Recent Illness/Hospitalization: No PFSH PFSH Medical History Diarrhea Labral tear of hip joint (04/17/20) High blood pressure Wears glasses History of steroid therapy Back pain History of IBS Shortness of breath on exertion History of pain when walking History of edema Depression PCOS (polycystic ovarian syndrome) Hypertension Anxiety Colitis Non-smoker GERD (gastroesophageal reflux disease) Home Medications Medication Instructions Recorded Last Taken Type levonorgestrel (Mirena) 1 insert intrauterine ONCE 11/26/21 Unknown History Nebulizer machine #1 ea 06/18/24 Unknown Rx duloxetine 60 mg capsule,delayed 60 mg PO DAILY #90 caps 03/08/25 05/18/25 Rx release losartan 50 mg-hydrochlorothiazide 1 tab PO DAILY #90 tabs 03/08/25 05/19/25 Rx 12.5 mg tablet trazodone 50 mg tablet 50 mg PO QHS #60 tabs 03/08/25 Unknown Rx albuterol sulfate 2.5 mg/3 mL 2.5 mg (3 mL) inhalation Q4H PRN 03/15/25 Unknown Rx (0.083 %) solution for nebulization shortness of breath or wheezing #180 mL albuterol sulfate 90 mcg/actuation 2 puff inhalation Q4H PRN 03/15/25 Unknown Rx aerosol inhaler (Ventolin HFA) shortness of breath or wheezing #8.5 grams famotidine 40 mg tablet 40 mg PO QHS #30 tabs 03/22/25 05/17/25 Rx budesonide-formoterol HFA 80 2 puff inhalation DAILY 05/20/25 05/20/25 History mcg-4.5 mcg/actuation aerosol inhaler (Symbicort) prochlorperazine maleate 5 mg 5 mg PO TID PRN nausea and 06/04/25 Unknown Rx tablet (Compazine) vomiting #14 tabs naproxen 500 mg tablet 500 mg PO BID PRN pain 06/06/25 Unknown History sucralfate 1 gram tablet (Carafate) 1 g PO QAC #30 tabs 06/06/25 Unknown Rx sulfamethoxazole 800 1 tab PO BID 06/06/25 Unknown History mg-trimethoprim 160 mg tablet hyoscyamine sulfate 0.125 mg 0.125 mg sublingual BID-QID PRN 06/10/25 Unknown Rx sublingual tablet abdominal cramping pain, diarrhea #90 tabs pantoprazole 40 mg tablet,delayed 40 mg PO QDAY #90 tabs 06/10/25 Unknown Rx release doxycycline hyclate 100 mg tablet 100 mg PO BID 7 days #14 tabs 07/01/25 Unknown Rx naproxen 500 mg tablet 500 mg PO BID #14 tabs 07/01/25 Unknown Rx Allergy/AdvReac Type Severity Reaction Status Date / Time tramadol Allergy Intermediate Hives Verified 07/01/25 12:57 Penicillins Allergy rash Verified 07/01/25 12:57 Family History Father CVA (cerebral vascular accident) Mother Intrinsic asthma Grandfather Diabetes COPD (chronic obstructive pulmonary disease) Surgical History History of hip surgery S/P cholecystectomy History of tonsillectomy History of foot surgery Social History Smoking Status: Never smoker alcohol intake: never substance use type: does not use caffeine: Yes what type of physical activity do you participate in: none seatbelt use: always do you feel safe at home: Yes ROS ROS ED Constitutional Constitutional ED: Denies chills, fever(s), subjective, sweats or weight loss Eyes Eyes: Denies blurry vision, change in vision or diplopia ENT ENT ED: Denies ear pain, rhinorrhea or sore throat Cardiovascular Cardiovascular: Denies chest pain, orthopnea, palpitations, paroxysmal nocturnal dyspnea or racing heartbeat Respiratory/Chest Respiratory/Chest: Denies cough, dyspnea, dyspnea on exertion, orthopnea or paroxysmal nocturnal dyspnea Gastrointestinal Gastrointestinal: Reports abdominal pain and nausea; Denies constipation, diarrhea, melena or vomiting Genitourinary Genitourinary ED: Denies dysuria, hematuria or urinary frequency Musculoskeletal Musculoskeletal: Denies arthralgias, back pain or myalgias Integumentary Denies abscess, Abrasions or rash Neurologic Neurologic: Denies headache(s), paresthesias or weakness Psychiatric Psychiatric: Reports anxiety; Denies depression or suicidal ideation Endocrine Endocrinology: Denies cold intolerance or heat intolerance Hematologic/Lymphatic Hematologic/Lymphatic: Reports systems reviewed and no addt'l complaints, except as documented EXAM Physical Exam Const Vital Signs: 07/01/25 12:57 07/01/25 14:57 07/01/25 16:00 Temperature 98.5 F Temperature Source Oral Pulse Rate 101 H 94 89 Respiratory Rate 18 16 15 Blood Pressure 155/125 H 152/109 H 138/90 H Blood Pressure Mean 135 123 106 Pulse Ox 99 100 100 Oxygen Delivery Method Room Air Room Air Nasal Cannula Positive well nourished and well developed Constitutional Narrative: BMI is greater than 50. General Appearance ED: well developed, NAD and other Patient intermittently cried during the history and physical. ; Negative for cyanotic, diaphoretic or pallor HEENT Reports moist mucous membranes HEENT Narrative: Head is atraumatic no cephalic. Ears normal. Nares patent. Posterior pharynx is normal. Uvula midline. No deviation with retrusion Eyes PERRL and EOMs intact bilaterally Eyes Narrative: There is no nystagmus. General Eye ED: Negative for pale conjunctiva or scleral icterus Neck no lymphadenopathy, supple and no JVD Neck Narrative: There is no carotid bruits. Resp normal respiratory effort and clear to auscultation bilaterally Cardio regular rate, regular rhythm, S1 normal heart sound, S2 normal heart sound and no murmurs GI normal to inspection, nondistended, normoactive bowel sounds, non-distended and no masses; Negative for non-tender or hepatosplenomegaly GI Narrative: Exam is limited due to body habitus. Tenderness near the right inguinal area. There is no obvious mass or lymphadenopathy. Of note Dr. Murillo's office note was reviewed. Back/Spine no CVA tenderness Extremity normal to inspection General Extremety ED: Negative for edema or tenderness General Extremity: Negative for edema Neuro oriented x3 and CN's II-XII intact bilaterally Sensorium / Orientation: alert Motor Exam: strength 5/5 throughout Psych Mood & Affect: anxious and tearful Skin no rashes or lesions noted, no wounds and skin turgor normal General Skin Exam: elasticity normal; Negative for jaundice or pallor MDM MDM MDM Narrative Medical decision making narrative: Dr. Murillo's note was reviewed. Nurse protocol was initiated. Will obtain electrolyte panel to assess renal function since this has not been done recently. Her blood pressure is slightly elevated 155 or 125. Ultrasound of the pelvis was obtained to evaluate this worsening intermittent chronic pelvic pain especially since she was being considered for operative intervention. History & Record Review Additional record(s) reviewed:: Prior outpatient record (Dr. Murillo is note was read in its entirety.) and Prior labs Lab Data Attestation: I reviewed the patient's lab results. Lab results narrative: CBC reveals elevated H&H. Patient's electrolyte panel reveals slightly decreased CO2 at 20.7. test was negative. Labs: Laboratory Results - last 24 hr 07/01/25 13:05 WBC 10.8 RBC 5.57 H Hgb 15.9 H Hct 47.1 H MCV 84.6 MCH 28.5 MCHC 33.8 RDW Std Deviation 40.6 RDW Coeff of [place] 13.1 Plt Count 295 MPV 10.1 Immature Gran % (Auto) 0.400 Neut % (Auto) 65.6 Lymph % (Auto) 21.7 [place] % (Auto) 5.4 Eos % (Auto) 5.9 H Baso % (Auto) 1.0 Absolute Neuts (auto) 7.1 Absolute Lymphs (auto) 2.34 Nucleated RBC % 0 Sodium 138 Potassium 3.8 Chloride 105 Carbon Dioxide 20.7 L Anion Gap 12 BUN 17 Creatinine 0.88 Estim Creat Clear Calc 138.52 Est GFR (MDRD) Non-Af 90 BUN/Creatinine Ratio 19.5 Glucose 108 H Calcium 9.3 Total Bilirubin 0.23 AST 14 ALT 21 Alkaline Phosphatase 93 Total Protein 7.2 Albumin 4.1 Globulin 3.1 Albumin/Globulin Ratio 1.3 Lipase 54 Serum , Qual NEGATIVE Radiography Diagnostic Testing: Clinical Impression(s) from Imaging Studies Transvaginal US 07/01/25 14:34 IMPRESSION: Overall heterogeneous appearance to the uterus. IUD. Endometrial thickening at the fundus. Recommend repeat ultrasound in 6-8 weeks to confirm improvement. Right ovary cysts but no torsion. Left ovary not visualized. Reading Location: [place] [id number] The report dictated by the radiologist was reviewed. 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 Blood pressure has improved. There is no need for treatment at this time. This may be stress related. Also it could be due to the fact that she is having pain. Treatment and Re-Evaluation :: Patient was informed of the results. She began to cry. She states she is upset because she has recurrent cyst. Recommend she contact Dr. Murillo. Discharge Plan Triage Chief Complaint: Abd Pain ED Provider: Colt Milligan Dx/Rx/DC Orders Clinical Impression: Cyst of right ovary, Ovarian cyst rupture, Hypertension, PCOS (polycystic ovarian syndrome), Depression, Morbid obesity due to excess calories, Pelvic pain in female Instructions: ED Ovarian Cyst Prescriptions: New naproxen 500 mg tablet 500 mg PO BID Qty: 14 0RF No Action Mirena 20 mcg/24 hours (7 yrs) 52 mg intrauterine device 1 insert intrauterine ONCE Rx Instructions: as a single dose duloxetine 60 mg capsule,delayed release(DR/EC) 60 mg PO DAILY Qty: 90 1RF losartan-hydrochlorothiazide 50-12.5 mg tablet 1 tab PO DAILY Qty: 90 1RF trazodone 50 mg tablet 50 mg PO QHS Qty: 60 1RF albuterol sulfate [Ventolin HFA] 90 mcg/actuation HFA aerosol inhaler 2 puff INHALATION Q4H PRN (Reason: shortness of breath or wheezing) Qty: 8.5 5RF albuterol sulfate 2.5 mg /3 mL (0.083 %) solution for nebulization 2.5 mg inhalation Q4H PRN (Reason: shortness of breath or wheezing) Qty: 180 1RF famotidine 40 mg tablet 40 mg PO QHS Qty: 30 3RF pantoprazole 40 mg tablet,delayed release (DR/EC) 40 mg PO QDAY Qty: 90 1RF Rx Instructions: take 30 minutes prior to first meal of the day hyoscyamine sulfate 0.125 mg tablet, sublingual 0.125 mg sublingual BID-QID PRN (Reason: abdominal cramping pain, diarrhea) Qty: 90 1RF sulfamethoxazole-trimethoprim 800-160 mg tablet 1 tab PO BID naproxen 500 mg tablet 500 mg PO BID PRN (Reason: pain) Rx Instructions: Take with food on hold will restart on 06/12/25 sucralfate [Carafate] 1 gram tablet 1 g PO QAC Qty: 30 0RF doxycycline hyclate 100 mg tablet 100 mg PO BID 7 Days Qty: 14 0RF budesonide-formoterol [Symbicort] 80-4.5 mcg/actuation HFA aerosol inhaler 2 puff inhalation DAILY (DME) Nebulizer machine See Rx Instructions .ROUTE .MEDSUPPLY Qty: 1 0RF Rx Instructions: As directed prochlorperazine maleate [Compazine] 5 mg tablet 5 mg PO TID PRN (Reason: nausea and vomiting) Qty: 14 0RF Primary Care Provider: Tia Parra Referrals: Vande Velde,Danna, DO [Med Staff - Active Staff, Obstetrics-Gynecology (OBGYN)] - 3-5 Days Tia Parra, UX MANAGER-C [Primary Care Provider, Internal Medicine] Print Language: [place] Disposition Disposition: Home, Self Care
--- NOTE | 2025-07-01 14:34 | US_ITS ---
PROCEDURE: TRANSVAGINAL NON- 07/01/2025 REASON FOR EXAM: RIGHT ADNEXAL PAIN, HISTORY OF RECURRENT OVARIAN C TECHNIQUE: Procedure Code: USTVAG Modality: US Procedure: TRANSVAGINAL NON- COMPARISON: July 2020. FINDINGS: Measurements: Uterus:Measures 7.2 x 4.1 x 3.5 cm . isoechoic nodule measures 2.0 by 1.9 x 1.5 cm. Small nabothian cysts. Endometrial Thickness: Nodular area of thickening in the fundus of the uterus measures 1.5 cm. This contains IUD.. Remainder of the uterus negative. Right Ovary: Measures 4.3 x 4.6 x 5.2cm. There is a cysts measures 4.1 x 3.8 cm. Left not well-visualized. Other: Small amount of free pelvic fluid. US/Transvaginal Non- IMPRESSION: Overall heterogeneous appearance to the uterus. IUD. Endometrial thickening at the fundus. Recommend repeat ultrasound in 6-8 weeks to confirm improvement. Right ovary cysts but no torsion. Left ovary not visualized. Reading Location: [place] [id number]
[2025-07-01 14:57] VITALS: BP 152/109; PULSE 94; RESP 16; O2SAT 100
[2025-07-01 16:00] VITALS: BP 138/90; PULSE 89; RESP 15; O2SAT 100
[2025-07-01 16:45] VITALS: BP 130/84; PULSE 89; RESP 17; TEMP 36.6; O2SAT 99
== END 2025-07-01 16:46 | disposition home or self-care (01) ==
PROVIDERS: Emergency Provider Emergency Medicine; PCP Nurse Practitioner Family; Visit Provider Emergency Medicine
DX: E28.2 Polycystic ovarian syndrome (principal); E66.01 Morbid (severe) obesity due to excess calories; Z68.43 Body mass index [BMI] 50.0-59.9, adult; Z12.4 Encounter for screening for malignant neoplasm of cervix; R10.2 Pelvic and perineal pain; G89.29 Other chronic pain; R51.9 Headache, unspecified; I10 Essential (primary) hypertension; K21.9 Gastro-esophageal reflux disease without esophagitis; F32.A Depression, unspecified; Z79.899 Other long term (current) drug therapy
CPT/HCPCS: G0145; 76830; 80053; 83690; 84703; 85025; 87624; 88175; 99283

== ENCOUNTER → 2025-07-01 | Outpatient (CLI) | payer MEDICAID, SELFPAY ==
[2025-07-05 19:08] LABS: HPV APTIMA, High Risk Negative (Negative)
== END | disposition home or self-care (01) ==
LOC: LABSPEC 13:15
PROVIDERS: PCP Nurse Practitioner Family; Referring Provider Obstetrics & Gynecology; Visit Provider Obstetrics & Gynecology
DX: Z12.4 Encounter for screening for malignant neoplasm of cervix (principal)
CPT/HCPCS: 87624; G0145; 88175

== ENCOUNTER → 2025-07-15 | Outpatient (CLI) | payer MEDICAID, SELFPAY ==
--- NOTE | 2025-07-15 15:16 | US_ITS ---
PROCEDURE: PELVIC W/ TRANSVAGINAL 07/15/2025 REASON FOR EXAM: ER F/U HVG BLEEDING, PELVIC CYST TECHNIQUE: Procedure Code: USPELTVAG Modality: US Procedure: PELVIC W/ TRANSVAGINAL COMPARISON: Pelvic ultrasound 07/01/2025. FINDINGS: Anteverted uterus appears normal in size, measuring 7.3 x 4.1 x 3.3 cm. No abnormal collection within the uterine cavity. Cervical nabothian cysts noted. IUD in place. Posterior uterine body fibroid measures 1.7 x 1.7 x 1.6 cm. Endometrial stripe complex appears within normal limits measuring 0.9 cm in thickness. Right ovary measures 5 x 4.9 x 4.3 cm. Left ovary measures 2.7 x 2 x 1.2 cm. Blood flow is demonstrated bilaterally within the ovaries on color Doppler. Right ovary contains a simple anechoic cyst measuring 4.2 x 3.8 x 3.4 cm. US/Pelvic w/ Transvaginal IMPRESSION: 1. Posterior uterine body fibroid measuring 1.7 cm. 2. Endometrial stripe appears within normal limits. IUD in place. 3. Simple right ovarian cyst measuring up to 4.2 cm. No follow-up indicated. Reading Location: [id number]
== END | disposition home or self-care (01) ==
LOC: US 15:10
PROVIDERS: PCP Nurse Practitioner Family; Referring Provider Obstetrics & Gynecology; Visit Provider Obstetrics & Gynecology
DX: R10.20 Pelvic and perineal pain unspecified side (principal); N83.201 Unspecified ovarian cyst, right side
CPT/HCPCS: 76830; 76856

== ENCOUNTER 2025-08-27 12:15 | Day surgery (SDC) | payer MEDICAID, SELFPAY ==
[2025-08-19 16:38] LABS: Hematocrit 41.2 % (37-47); Hemoglobin 13.9 g/dL (12.0-15.0); Mean Corp Hgb Conc 33.7 g/dL (32-36); Mean Corpuscular Volume 85.7 fL (81-99); Mean Platelet Vol. 11.0 fl (6.2-12.0); Platelet Count 233 K/mm3 (150-450); RBC Distribution Width CV 13.2 % (11.6-14.6); RBC Distribution Width SD 41.0 fl (35.1-43.9); Red Blood Count 4.81 M/mm3 (4.2-5.4); White Blood Count 8.3 K/mm3 (4.4-11.0)
[2025-08-19 17:16] LABS: AST(SGOT) 43 U/L (<=31); Alanine Aminotransfer ALT/SGPT 42 U/L (<=34); Albumin, Serum 4.0 g/dL (3.5-5.0); Alkaline Phosphatase 101 U/L (35-104); Anion Gap 10 (5-15); BUN 17 mg/dL (4-19); BUN/Creat Ratio 20.6 RATIO (10-20); Calcium,Total 9.1 mg/dL (7.6-11.0); Carbon Dioxide 25.7 mmol/L (21.0-32.0); Chloride 104 mmol/L (98-108); Globulin 2.7 g/dL (2.2-4.2); Glucose 82 mg/dL (70-99); Potassium 3.2 mmol/L (3.3-5.1)
--- NOTE | 2025-08-23 14:14 | PAT.ANESEVAL ---
Pre-Assessment Diagnosis/Proposed Procedure Planned Operative Procedure(s): HYSTEROSCOPY D&C,DIAGNOSTIC LAPAROSCOPY WITH IUD REMOVAL AND REINSERTION Anesthesia History Anesthesia History - time clock repairer: Anesthesia History - time clock repairer Hx Hospitalization No 08/19/25 12:10 Any Problems With Anesthesia No 08/19/25 12:10 Cholinesterase deficiency No 08/19/25 12:10 You/Your Family Experience No 08/19/25 12:10 fever (hyperthermia) with Relationship Recent Exposure to Contagious No 06/06/25 07:44 Disease Does patient have nerve No 08/19/25 12:10 stimulator Patient instructed to have device shut off --Does patient have Pacemaker or ICD? When Was Last Pacemaker Check QUESTION #4 FULL TEXT: You/Your Family Experience fever (hyperthermia) with Anesthesia Last Oral Intake Last Oral intake: Last Oral Intake NPO since Meds taken in AM with sips of water? Meds patient instructed to take am of surgery PONV PONV - time clock repairer: PONV - time clock repairer Female Yes 08/19/25 12:10 HX of Motion Sickness No 08/19/25 12:10 HX of N/V After Surgery No 08/19/25 12:10 Non-Smoker Yes 08/19/25 12:10 Duration of Surgery greater Yes 08/19/25 12:10 than 60 minutes Number of Risk Factors 3 08/19/25 12:10 PONV Score Moderate Risk 08/19/25 12:10 Height & Weight Height & Weight: Anesthesia: Height & Weight Height 5 ft 6 in 08/19/25 14:11 Respiratory Assessment Respiratory Assessment - time clock repairer: Respiratory Tract Infection Hx - time clock repairer Hx Respiratory Tract Infection No 08/19/25 12:10 STOP Sleep Apnea STOP Sleep Apnea - time clock repairer: STOP Sleep Apnea - time clock repairer Hx Hypertension Yes: CONTROLLED WITH MED 08/19/25 12:10 Hx Sleep Apnea No 08/19/25 12:10 CPAP BIPAP Do you snore loudly (louder No 08/19/25 12:10 than talking or can be heard Do you often feel tired/ No 08/19/25 12:10 fatigued/ sleepy during daytime? Has anyone observed you stop No 08/19/25 12:10 breathing during sleep? STOP Results Negative 08/19/25 12:10 QUESTION #5 FULL TEXT : Do you snore loudly (louder than talking or can be heard through closed doors)? 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 Specify any problems Hx of Preganancy in last 3 No 08/19/25 12:10 Months Nurse Filling Out Transfusion DSCHRIBER 08/19/25 12:10 & Questions: Date: 08/19/25 08/19/25 12:10 Time: 12:12 08/19/25 12:10 Patient unable to answer at this time (ie. confused, unrespo /Reproduction History /Reproductive History - time clock repairer: /Reproductive Hx- time clock repairer Hx Now No 08/19/25 12:10 Gestational Age (in weeks): EDC: Hx Hx Para Hx Section SAB No 08/19/25 14:11 Does the father of the baby or his family experience fever w Father of the baby Malignant [facility] History Restless legs Asthma Labral tear of hip joint (04/17/20) Wears glasses History of IBS Depression PCOS (polycystic ovarian syndrome) Hypertension Anxiety Non-smoker GERD (gastroesophageal reflux disease) Home Medications ?Medication ?Instructions ?Recorded ?Last Taken ?Type levonorgestrel (Mirena) 1 insert intrauterine ONCE 11/26/21 Unknown History Nebulizer machine #1 ea 06/18/24 Unknown Rx albuterol sulfate 2.5 mg/3 mL 2.5 mg (3 mL) inhalation Q4H PRN 03/15/25 Unknown Rx (0.083 %) solution for nebulization shortness of breath or wheezing #180 mL albuterol sulfate 90 mcg/actuation 2 puff inhalation Q4H PRN 03/15/25 Unknown Rx aerosol inhaler (Ventolin HFA) shortness of breath or wheezing #8.5 grams budesonide-formoterol HFA 80 2 puff inhalation BID 05/20/25 05/20/25 History mcg-4.5 mcg/actuation aerosol inhaler (Symbicort) hyoscyamine sulfate 0.125 mg 0.125 mg sublingual BID-QID PRN 06/10/25 Unknown Rx sublingual tablet abdominal cramping pain, diarrhea #90 tabs pantoprazole 40 mg tablet,delayed 40 mg PO QDAY #90 tabs 06/10/25 Unknown Rx release duloxetine 60 mg capsule,delayed 60 mg PO DAILY #90 caps 07/02/25 Unknown Rx release losartan 50 mg-hydrochlorothiazide 2 tab PO DAILY #60 tabs 07/02/25 Unknown Rx 12.5 mg tablet ibuprofen 800 mg tablet 800 mg PO Q8H PRN pain #90 tabs 07/11/25 Unknown Rx trazodone 50 mg tablet 50 mg PO QHS PRN sleep 08/19/25 Unknown History Allergy/AdvReac Type Severity Reaction Status Date / Time tramadol Allergy Intermediate Hives Verified 08/19/25 14:11 Penicillins Allergy rash Verified 08/19/25 14:11 Family History Father CVA (cerebral vascular accident) Mother Intrinsic asthma Grandfather Diabetes COPD (chronic obstructive pulmonary disease) Surgical History History of esophagogastroduodenoscopy (EGD) History of hip surgery S/P cholecystectomy History of tonsillectomy History of foot surgery Social History Smoking Status: Never smoker alcohol intake: never substance use type: does not use caffeine: Yes what type of physical activity do you participate in: none seatbelt use: always do you feel safe at home: Yes Audit: Pertinent Findings Pertinent Findings Pulmonary function results/spirometer pertinent findings: 10/12/2019. Fully reversible mild large airway obstructive ventilatory defect, diagnosed of asthma Recommendation Anesthesia Recommendation Anesthesia recommendation: OPTIMIZED for anesthesia
[2025-08-27] VITALS (8 sets, daily range): BP systolic 90–151; BP diastolic 66–108; PULSE 51–84; RESP 16–18; TEMP 36.1–36.3; O2SAT 96–99; BMI 52.6
[2025-08-27 12:43] LABS: Internal QC Validated? YES +Cl - CLEAR BKGD; Pregnancy, Urine Negative Negative; Record Kit Lot#,Urine Preg 980607
[2025-08-27] MEDS: Lactated Ringers 1,000 ML 15 ML IV ×2 (12:46→14:42)
--- NOTE | 2025-08-27 13:01 | PCM.PRE.AN2 ---
ASA Classification* ASA Classification ASA Classification: 4 (Asthma, BMI > 50, HTN, LUCY) Assessment & Plan Anesthesia* Anesthesia Assessment Anesthesia Assessment: Discussed sedation and/or anesthesia options, risks, benefits, and alternatives with patient/parents/legal guardian/POA. Questions invited. The patient/parents/legal guardian/POA seems to understand and agrees to proceed with anesthesia plan. Reviewed the physical assessment, medical history, allergy history and patient home medications list prior to surgery/procedure/anesthetic and documented any changes. Performed airway and anesthesia risk assessments. Anesthesia Type Anesthesia Type: MAC (Please use non-rebreather, surgeon is cancelling laprascopic portion of procedure, and only doing Hysteroscopy D&C) History Source History Obtained from:: Patient and Chart Anesthesia Focused Assessment* Temperature: 97.0 F Pulse Rate: 80 Blood Pressure: 151/108 Respiratory Rate: 18 Pulse Ox: 97 Oxygen Delivery Method: Room Air Airway Assessment Mouth opens: >3 cm Mallampati Score: IV Neck Range of motion (ROM): Full ROM Labs Anesthesia Preop lab: CBC WBC, (4.4-11.0) 8.3 K/mm3 08/19/25, 14:45 RBC, (4.2-5.4) 4.81 M/mm3 08/19/25, 14:45 Hgb, (12.0-15.0) 13.9 g/dL 08/19/25, 14:45 Hct, (37-47) 41.2 % 08/19/25, 14:45 Plt Count, (150-450) 233 K/mm3 08/19/25, 14:45 CHEMISTRY Potassium, (3.3-5.1) 3.2 mmol/L L 08/19/25, 14:45 Sodium, (133-145) 140 mmol/L 08/19/25, 14:45 BUN, (4-19) 17 mg/dL 08/19/25, 14:45 Creatinine, (0.70-1.20) 0.82 mg/dL 08/19/25, 14:45 Glucose, (70-99) 82 mg/dL 08/19/25, 14:45 COAG Urine Test Negative Negative Today, 12:31 Pre-Assessment Diagnosis/Proposed Procedure Planned Operative Procedure(s): HYSTEROSCOPY D&C,DIAGNOSTIC LAPAROSCOPY WITH IUD REMOVAL AND REINSERTION Anesthesia History 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 When Was Last Pacemaker Check QUESTION #4 FULL TEXT: You/Your Family Experience fever (hyperthermia) with Anesthesia Last Oral Intake Last Oral intake: Last Oral Intake NPO since 00:00 08/27/25 12:38 Meds taken in AM with sips of Yes 08/27/25 12:38 water? Meds patient instructed to see medlist 08/27/25 12:38 take am of surgery PONV PONV - financial accounting manager: PONV - financial accounting manager Female Yes 08/19/25 12:10 HX of Motion Sickness No 08/19/25 12:10 HX of N/V After Surgery No 08/19/25 12:10 Non-Smoker Yes 08/19/25 12:10 Duration of Surgery greater Yes 08/19/25 12:10 than 60 minutes Number of Risk Factors 3 08/19/25 12:10 PONV Score Moderate Risk 08/19/25 12:10 Height & Weight Height & Weight: Anesthesia: Height & Weight Height 5 ft 6 in 08/27/25 12:38 Weight: 147.8 kg 08/27/25 12:38 Body Mass Index (BMI) 52.6 08/27/25 12:38 Respiratory Assessment Respiratory Assessment - financial accounting manager: Respiratory Tract Infection Hx - financial accounting manager Hx Respiratory Tract Infection No 08/19/25 12:10 STOP Sleep Apnea STOP Sleep Apnea - financial accounting manager: STOP Sleep Apnea - financial accounting manager Hx Hypertension Yes: CONTROLLED WITH MED 08/19/25 12:10 Hx Sleep Apnea No 08/19/25 12:10 CPAP BIPAP Do you snore loudly (louder No 08/19/25 12:10 than talking or can be heard Do you often feel tired/ No 08/19/25 12:10 fatigued/ sleepy during daytime? Has anyone observed you stop No 08/19/25 12:10 breathing during sleep? STOP Results Negative 08/19/25 12:10 QUESTION #5 FULL TEXT : Do you snore loudly (louder than talking or can be heard through closed doors)? 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 Specify any problems Hx of Preganancy in last 3 No 08/19/25 12:10 Months Nurse Filling Out Transfusion DSCHRIBER 08/19/25 12:10 & Questions: Date: 08/19/25 08/19/25 12:10 Time: 12:12 08/19/25 12:10 Patient unable to answer at this time (ie. confused, unrespo /Reproduction History /Reproductive History - financial accounting manager: /Reproductive Hx- financial accounting manager Hx Now No 08/19/25 12:10 Gestational Age (in weeks): EDC: Hx Hx Para Hx Section SAB No 08/19/25 14:11 Does the father of the baby or his family experience fever w Father of the baby Malignant Hypertension history comment Active Medications Active Medications: Current Medications Generic Name Dose Route Start Last Admin Trade Name Freq PRN Reason Stop Dose Admin Lactated Ringer's 1,000 mls @ 15 mls/hr 08/27/25 12:30 08/27/25 12:46 IV 15 mls/hr .Q48H TOÑO Administration Levonorgestrel 1 each 08/27/25 14:15 Levonorgestrel Iud (Liletta) INTRA-UTER 08/27/25 14:16 X1 ONE PFSH Medical History Restless legs Asthma Labral tear of hip joint (04/17/20) Wears glasses History of IBS Depression PCOS (polycystic ovarian syndrome) Hypertension Anxiety Non-smoker GERD (gastroesophageal reflux disease) Home Medications ?Medication ?Instructions ?Recorded ?Last Taken ?Type levonorgestrel (Mirena) 1 insert intrauterine ONCE 11/26/21 Unknown History Nebulizer machine #1 ea 06/18/24 Unknown Rx albuterol sulfate 2.5 mg/3 mL 2.5 mg (3 mL) inhalation Q4H PRN 03/15/25 Unknown Rx (0.083 %) solution for nebulization shortness of breath or wheezing #180 mL albuterol sulfate 90 mcg/actuation 2 puff inhalation Q4H PRN 03/15/25 Unknown Rx aerosol inhaler (Ventolin HFA) shortness of breath or wheezing #8.5 grams budesonide-formoterol HFA 80 2 puff inhalation BID 05/20/25 08/27/25 History mcg-4.5 mcg/actuation aerosol inhaler (Symbicort) hyoscyamine sulfate 0.125 mg 0.125 mg sublingual BID-QID PRN 06/10/25 Unknown Rx sublingual tablet abdominal cramping pain, diarrhea #90 tabs pantoprazole 40 mg tablet,delayed 40 mg PO QDAY #90 tabs 06/10/25 Unknown Rx release duloxetine 60 mg capsule,delayed 60 mg PO DAILY #90 caps 07/02/25 Unknown Rx release losartan 50 mg-hydrochlorothiazide 2 tab PO DAILY #60 tabs 07/02/25 08/27/25 Rx 12.5 mg tablet ibuprofen 800 mg tablet 800 mg PO Q8H PRN pain #90 tabs 07/11/25 Unknown Rx trazodone 50 mg tablet 50 mg PO QHS PRN sleep 08/19/25 Unknown History Allergy/AdvReac Type Severity Reaction Status Date / Time tramadol Allergy Intermediate Hives Verified 08/27/25 12:34 Penicillins Allergy rash Verified 08/27/25 12:34 Family History Father CVA (cerebral vascular accident) Mother Intrinsic asthma Grandfather Diabetes COPD (chronic obstructive pulmonary disease) Surgical History History of esophagogastroduodenoscopy (EGD) History of hip surgery S/P cholecystectomy History of tonsillectomy History of foot surgery Social History Smoking Status: Never smoker alcohol intake: never substance use type: does not use caffeine: Yes what type of physical activity do you participate in: none seatbelt use: always do you feel safe at home: Yes Review of Systems (Anesthesia) ROS Narrative System reviewed and no additional complaints, except as documented. Physical Exam Const alert and oriented x3 Nutritional Appearance: morbidly obese Resp normal respiratory effort, normal air movement and clear to auscultation bilaterally Cardio regular rate, regular rhythm and no murmurs; Negative for diaphoretic
--- NOTE | 2025-08-27 13:05 | PCM.HP.BLA ---
History and Physical Date of Admission: 08/27/25 Intake Vital Signs 07/02/2509:32 08/19/2514:10 08/19/2514:11 Height 5 ft 6 in 5 ft 6 in 5 ft 6 in Weight: 329 lb 4 oz 333 lb 2 oz BMI 53.1 53.7 BP 168/100 H 136/91 H Blood Pressure Location Lt brachial Position Sitting Respiration 20 H Pulse 102 H Pulse Source Monitor Temp 98.7 F Pulse Oximetry (%) 99 Oxygen Delivery Method room air Intake Visit Reasons: Preop D&C IUD removal and reinsert Chief Complaint: Preop D&C Customer Care Team Coach Required: No Is patient in pain?: No Allergies tramadol Allergy (Intermediate, Verified 08/19/25 14:11) Hives Penicillins Allergy (Verified 08/19/25 14:11) rash Medications ?Medication ?Instructions ?Recorded ?Confirmed ?Type levonorgestrel (Mirena) 1 insert intrauterine ONCE 11/26/21 08/19/25 History Nebulizer machine #1 ea 06/18/24 08/19/25 Rx albuterol sulfate 2.5 mg/3 mL 2.5 mg (3 mL) inhalation Q4H PRN 03/15/25 08/19/25 Rx (0.083 %) solution for nebulization shortness of breath or wheezing #180 mL albuterol sulfate 90 mcg/actuation 2 puff inhalation Q4H PRN 03/15/25 08/19/25 Rx aerosol inhaler (Ventolin HFA) shortness of breath or wheezing #8.5 grams budesonide-formoterol HFA 80 2 puff inhalation BID 05/20/25 08/19/25 History mcg-4.5 mcg/actuation aerosol inhaler (Symbicort) hyoscyamine sulfate 0.125 mg 0.125 mg sublingual BID-QID PRN 06/10/25 08/19/25 Rx sublingual tablet abdominal cramping pain, diarrhea #90 tabs pantoprazole 40 mg tablet,delayed 40 mg PO QDAY #90 tabs 06/10/25 08/19/25 Rx release duloxetine 60 mg capsule,delayed 60 mg PO DAILY #90 caps 07/02/25 08/19/25 Rx release losartan 50 mg-hydrochlorothiazide 2 tab PO DAILY #60 tabs 07/02/25 08/19/25 Rx 12.5 mg tablet ibuprofen 800 mg tablet 800 mg PO Q8H PRN pain #90 tabs 07/11/25 08/19/25 Rx trazodone 50 mg tablet 50 mg PO QHS PRN sleep 08/19/25 08/19/25 History Post menopausal: No Patient : No : No Control Method: Mirena [facility] Medical History Restless legs Asthma Labral tear of hip joint (04/17/20) Wears glasses History of IBS Depression PCOS (polycystic ovarian syndrome) Hypertension Anxiety Non-smoker GERD (gastroesophageal reflux disease) Surgical History History of esophagogastroduodenoscopy (EGD) History of hip surgery S/P cholecystectomy History of tonsillectomy History of foot surgery Family History Father CVA (cerebral vascular accident) Mother Intrinsic asthma Grandfather Diabetes COPD (chronic obstructive pulmonary disease) Social History Smoking Status: Never smoker alcohol intake: never substance use type: does not use caffeine: Yes what type of physical activity do you participate in: none seatbelt use: always do you feel safe at home: Yes HPI Preop D&C IUD removal and reinsert Details: JESSICA ACUNA is a 30 year old who presents for preop exam for a hysteroscopy dilation and curettage, removal and placement of IUD and ovarian cystectomy. However, her cyst has decreased in size as of this am (now measuring 3.0 x 3.38cm) The patient is a 30-year-old female with a history of recurrent ovarian cysts, asthma, and hypertension presenting for evaluation of chronic pelvic pain and breakthrough bleeding. Pelvic Pain - Reports chronic pelvic pain described as stabbing and random that wakes her up at night. - Pain is localized throughout the uterus, sides, and back, and has been progressively worsening over the years. - Partner confirms that pain has visibly increased since they first got together six years ago. - Has not been diagnosed with endometriosis but suspects it due to the nature of her symptoms. - Pain is sometimes associated with dyspareunia. - Recent CT scan performed at [facility] showed recurrent cysts on her sides. Breakthrough Bleeding - Experiences random breakthrough bleeding despite having a Mirena IUD in place for five years. - Describes the bleeding as chocolaty in appearance. Menstrual Irregularities - Does not have regular menstrual cycles due to Mirena IUD. - Reports that she has had recurrent cysts on any form of control. Contraception - Currently using Mirena IUD for contraception, in place for five years. - Previous use of oral contraceptive pills, which also resulted in cyst formation. Reproductive Goals - Desires to have children in the future but wants to address current health issues first. - Partner has a 15-year-old child from a previous relationship. Anteverted uterus appears normal in size, measuring 7.3 x 4.1 x 3.3 cm. No abnormal collection within the uterine cavity. Cervical nabothian cysts noted. IUD in place. Posterior uterine body fibroid measures 1.7 x 1.7 x 1.6 cm. Endometrial stripe complex appears within normal limits measuring 0.9 cm in thickness. Right ovary measures 5 x 4.9 x 4.3 cm. Left ovary measures 2.7 x 2 x 1.2 cm. Blood flow is demonstrated bilaterally within the ovaries on color Doppler. Right ovary contains a simple anechoic cyst measuring 4.2 x 3.8 x 3.4 cm. US/Pelvic w/ Transvaginal IMPRESSION: 1. Posterior uterine body fibroid measuring 1.7 cm. 2. Endometrial stripe appears within normal limits. IUD in place. 3. Simple right ovarian cyst measuring up to 4.2 cm. No follow-up indicated. ROS Const ROS Unobtainable: All systems reviewed & are unremarkable except as noted in H Resp Resp: Reports system reviewed and no additional complaints, except as documented; Denies cough GI GI: Reports as per HPI Psych Psych: Reports system reviewed and no additional complaints, except as documented Exam Const General: cooperative, healthy appearing, comfortable and no acute distress Resp Effort & Inspection: normal respiratory effort Skin General: no rashes or lesions noted Psych Appearance: grossly normal Speech and Movement: speech and movement normal Coding Level of Care Code Off vis,est,level 4 Diagnoses Pelvic pain in female R10.2 Ovarian cyst, right N83.201 Assessment and Plan Assessment and Plan (1) Pelvic pain in female: Status: Acute (2) Ovarian cyst, right: Status: Acute Plan After discussing the patient's diagnosis and treatment plan options, patient wishes to proceed with surgical management. I have discussed with the patient the risks, benefits, and alternatives of the procedure which include but are not limited to risks of anesthesia, bleeding, infection, possible damage to bowel, bladder, or surrounding vasculature which could lead to additional surgery to evaluate any complications. Patient agrees to procedure and wishes to proceed. ACOG/uptodate references given for additional information regarding procedure. plan now is for hysteroscopy D&C removal and replacement of progesterone IUD
--- NOTE | 2025-08-27 13:06 | PCM.DC ---
Discharge Instructions DC O2, CPAP, BIPAP needs Home O2 Discharge instructions: No Dressing / Incision Discharge Activity: May Shower and May Take a Tub Bath (after 1 week) May resume sexual activity in: 1-2 weeks Weight Bearing Status: Weight bearing as tolerated Lifting Restrictions: none Dressing / Incision Call your doctor if you observe: Fever of 101 or Higher, Using more than 1 pad per hour, Shortness of breath and Uncontrolled pain Follow Up Care Please Follow Up With: Danna Blas DO When: Call [phone] to schedule appointment. Test Results: Test results from this visit will be discussed in further detail at your follow-up appointment, if applicable. Discharge Plan Admission Primary Reason for Your Visit: hysteroscopy dilation and curettage, removal and placement of IUD Attending Provider: Danna Blas Primary Care Provider: Tia Parra Instructions Print Language: Uzbek Discharge Orders/Prescriptions Prescriptions: New ibuprofen 800 mg tablet 800 mg PO Q8H PRN (Reason: pain) Qty: 20 0RF oxycodone-acetaminophen [Percocet] 5-325 mg tablet 1 tab PO Q4H PRN (Reason: pain) 7 Days Qty: 5 0RF Continued Mirena 20 mcg/24 hours (7 yrs) 52 mg intrauterine device 1 insert intrauterine ONCE Rx Instructions: as a single dose albuterol sulfate [Ventolin HFA] 90 mcg/actuation HFA aerosol inhaler 2 puff INHALATION Q4H PRN (Reason: shortness of breath or wheezing) Qty: 8.5 5RF albuterol sulfate 2.5 mg /3 mL (0.083 %) solution for nebulization 2.5 mg inhalation Q4H PRN (Reason: shortness of breath or wheezing) Qty: 180 1RF pantoprazole 40 mg tablet,delayed release (DR/EC) 40 mg PO QDAY Qty: 90 1RF Rx Instructions: take 30 minutes prior to first meal of the day hyoscyamine sulfate 0.125 mg tablet, sublingual 0.125 mg sublingual BID-QID PRN (Reason: abdominal cramping pain, diarrhea) Qty: 90 1RF duloxetine 60 mg capsule,delayed release(DR/EC) 60 mg PO DAILY Qty: 90 1RF losartan-hydrochlorothiazide 50-12.5 mg tablet 2 tab PO DAILY Qty: 60 1RF budesonide-formoterol [Symbicort] 80-4.5 mcg/actuation HFA aerosol inhaler 2 puff inhalation BID trazodone 50 mg tablet 50 mg PO QHS PRN (Reason: sleep) (DME) Nebulizer machine See Rx Instructions .ROUTE .MEDSUPPLY Qty: 1 0RF Rx Instructions: As directed ibuprofen 800 mg tablet 800 mg PO Q8H PRN (Reason: pain) Qty: 90 0RF Referrals / Follow Up: Tia Parra, EMERGENCY MEDICINE PHYSICIAN-C [Primary Care Provider, Internal Medicine] Disposition Disposition (needs filled in before D/C Order can be placed): Home, Self Care
[2025-08-27 13:14] LABS: AST(SGOT) 16 U/L (<=31); Alanine Aminotransfer ALT/SGPT 25 U/L (<=34); Albumin, Serum 4.2 g/dL (3.5-5.0); Alkaline Phosphatase 94 U/L (35-104); Anion Gap 10 (5-15); BUN 10 mg/dL (4-19); BUN/Creat Ratio 14.0 RATIO (10-20); Calcium,Total 9.0 mg/dL (7.6-11.0); Carbon Dioxide 22.2 mmol/L (21.0-32.0); Chloride 103 mmol/L (98-108); Estimated Creatinine Clearance 164.68 ml/min (50-250); Globulin 3.0 g/dL (2.2-4.2); Glucose 105 mg/dL (70-99); Potassium 3.9 mmol/L (3.3-5.1)
[2025-08-27] MEDS: Lactated Ringers 500 ML IV (13:32)
[2025-08-27] MEDS: Midazolam 2 MG/2 ML Syringe IV (13:35)
[2025-08-27] MEDS: fentaNYL 100 MCG/2 ML Ampul IV (13:49)
[2025-08-27] MEDS: Lidocaine 1% (20 ml mdv) 20 ML Vial (13:53)
[2025-08-27] MEDS: Levonorgestrel IUD (Liletta) 1 EACH INTRA-UTER (13:54)
--- NOTE | 2025-08-27 14:01 | OP.PCM_ITS ---
Multi Select Codes Urinary/Genital Urinary/Genital CPT Codes: 44025 Hysteroscopy, Polypectomy, Symphion and Other Procedure See Report (iud removal and insertion ) Operative Report (Standard) Operative Information Date of Procedure: 08/27/25 Pre-Operative Diagnosis: abnormal uterine bleeding Post-Operative Diagnosis: abnormal uterine bleeding Surgery/Procedure Performed: hysteroscopy dilation and curettage mold bunch trimmer: No Type of Anesthesia: MAC and Topical Anesth RN Documented Start/Stop Times: Operation Date: 08/27/25 14:15 Case Time Into Pre-Op 08/27/25 12:22 Anesthesia Start 08/27/25 13:32 Into Room 08/27/25 13:32 Procedure Start 08/27/25 13:47 Procedure End 08/27/25 13:58 Procedure Start Time: 13:47 Procedure Stop Time: 13:58 Select all DRAINS/GRAFTS/IMPLANTS that apply: None Estimated Blood Loss: 5cc Specimen collected: Yes Description of specimen(s) removed: endometrial curetting's Description of surgery: Patient was prepped and draped in a normal sterile fashion under MAC anesthesia. A weighted speculum was placed in the vagina and the anterior lip of the cervix was grasped with a single-tooth tenaculum. A paracervical block was placed with 1% lidocaine. The iud was removed without difficulty. The uterus sounded to 9cm. Cervix was progressively dilated to allow passage of a 5 mm hysteroscope. The lining was fully visualized and noted to have polyp like structures present . Curettage was performed and the specimen was sent to pathology. Next, a new liletta progesterone IUD was inserted to the fundus. the string was trimmed at 3 cm from the cervix. All instruments were removed from the vagina and excellent hemostasis was noted. Patient was awoken and taken to recovery in stable condition. Surgical Findings: thickened polypoid appearing endometrium Complications Complications: No Admit VTE Documentation VTE Present on Admission: No VTE Mechan Device Prophylaxis: [facility]'s VTE Pharm Prophylaxis ordered?: No
--- NOTE | 2025-08-27 14:15 | EMB_PTH ---
PATIENT: JESSICA ACUNA LOC: [facility] [place] U#:[id number] AGE/SX: 30/F ROOM: RE08/27/[address]: Dr. Danna Blas DO : 1995 BED: DIS: 08/27/2025 SPEC #: [id number] RECD: 08/27/25 18:09 STATUS: SILAS GIA #: [id number] YANNA: 08/27/25 14:[address]: Danna Blas DEPT: SURGICAL PATHOLOGY RECD BY: Marino Gerard ENTERED: 08/28/25 10:23 SP TYPE: ENDOM BX/C OT DR: Tia Parra, LOGISTICS AND PLANNING MANAGER-C Tissues: A - Endometrium, NOS Procedures: Surgery Specimen Level IV HEADER OPERATION: Dilation and curettage hysteroscopy, IUD removal and reinser PRE-OP DIAGNOSIS: Abnormal uterine bleeding TISSUE SUBMITTED: A- Endometrial curettings MICROSCOPIC DIAGNOSIS A. Endometrium, curettage: - Fragments of endometrial polyp with pseudodecidual stromal change. MICROSCOPIC DESCRIPTION Slides are reviewed. GROSS DESCRIPTION A. Received in formalin labeled with the patient's name and date of . Designated as endometrial curettings is a 2.8 x 2.5 x 0.6 cm aggregate of hector-pink to red irregular and rubbery tissue fragments admixed with slightly hemorrhagic mucoid material. Entirely submitted in 2 cassettes. NE [id number]
--- NOTE | 2025-08-27 14:15 | PCM.POST.ANE ---
Anesthesia: Postop Eval I Current Vital Signs Temperature: 97.2 F Pulse Rate: 84 Blood Pressure: 144/102 Respiratory Rate: 16 Pulse Ox: 99 Oxygen Delivery Method: Room Air Assessment Airway patent: Yes Spontaneous unlabored respirations: Yes Mental status: Awake and Calm nausea: No Vomiting: No Anesthesia Complication: No Fluid Hydration Crystalloid volume administer (ml): 500 Total IV fluid infused: 500 Progress Note Anesthesia document: Postop Eval 1 completed: Yes
--- NOTE | 2025-08-27 14:37 | SUR.PHASEI ---
1415 pt feels nauseated and woozy . Skin pale and pt is diaphoretic HR 51. bp 68/90. Pt said she feels like she needs to have a bowel movement, pt placed on bedpan. 1416 Dr rahman called , order for Reglan given. 1425 Pt feels better, skin is pink and cool .
--- NOTE | 2025-08-27 14:58 | POSTOPAN2_ITS ---
Anesthesia Postop Eval I Sum Postop Eval Completion status Anesthesia document: Postop Eval 1 completed: Yes Anesthesia Postop Eval I Summary Anesthesia Postop Eval I Summary: Anesthesia Postop Eval I: Assessment Summary Airway patent Yes 08/27/25 14:15 SLIP COVER SEAMSTRESS.[email or web address] Spontaneous unlabored Yes 08/27/25 14:15 SLIP COVER SEAMSTRESS.TAMMI respirations Mental status Awake,Calm 08/27/25 14:15 SLIP COVER SEAMSTRESS.SKOBY nausea No 08/27/25 14:15 SLIP COVER SEAMSTRESS.LENOBY Vomiting No 08/27/25 14:15 SLIP COVER SEAMSTRESS.LENOBMariola Anesthesia Postop Eval I: Fluid Summary Crystalloid volume administer 500 08/27/25 14:15 SLIP COVER SEAMSTRESS.SKOBY (ml) Colloids volume administered ( ml) Blood Product volume administered (ml) Total IV fluid infused 500 08/27/25 14:15 SLIP COVER SEAMSTRESS.LENOBMariola Anesthesia Postop Eval I: Summary Notes Anesthesia Complication No 08/27/25 14:15 SLIP COVER SEAMSTRESS.TAMMI Anesthesia Complication Comment: Post-operative progress note Anesthesia: Postop Eval II Evaluation Mental status: Awake Pain Level: 0 nausea: No Vomiting: No Complications Anesthesia Complication: No
--- NOTE | 2025-08-27 14:58 | PCM.POSTANE2 ---
Anesthesia Postop Eval I Sum Postop Eval Completion status Anesthesia document: Postop Eval 1 completed: Yes Anesthesia Postop Eval I Summary Anesthesia Postop Eval I Summary: Anesthesia Postop Eval I: Assessment Summary Airway patent Yes 08/27/25 14:15 GANG [email or web address] Spontaneous unlabored Yes 08/27/25 14:15 GANG BOSS.TAMMI respirations Mental status Awake,Calm 08/27/25 14:15 GANG [email or web address].[email or web address] nausea No 08/27/25 14:15 GANG BOSS.LENOBY Vomiting No 08/27/25 14:15 GANG BOSS.LENOBMariola Anesthesia Postop Eval I: Fluid Summary Crystalloid volume administer 500 08/27/25 14:15 GANG BOSS.[email or web address] (ml) Colloids volume administered ( ml) Blood Product volume administered (ml) Total IV fluid infused 500 08/27/25 14:15 GANG BOSS.LENOBMariola Anesthesia Postop Eval I: Summary Notes Anesthesia Complication No 08/27/25 14:15 GANG BOSS.TAMMI Anesthesia Complication Comment: Post-operative progress note Anesthesia: Postop Eval II Evaluation Mental status: Awake Pain Level: 0 nausea: No Vomiting: No Complications Anesthesia Complication: No
[2025-08-27] MEDS: HYDROcodone Bitartrate/Apap 5/325 Tablet PO (15:20)
== END 2025-08-27 15:46 | disposition home or self-care (01) ==
LOC: SDC 12:15 → AC 12:16
PROVIDERS: PCP Nurse Practitioner Family; Referring Provider Obstetrics & Gynecology; Visit Provider Obstetrics & Gynecology
PROC: (CPT 58120; principal; 2025-08-27 14:00)
DX: N84.0 Polyp of corpus uteri (principal); E66.01 Morbid (severe) obesity due to excess calories; Z68.43 Body mass index [BMI] 50.0-59.9, adult; Z30.433 Encounter for removal and reinsertion of intrauterine contraceptive device; N93.9 Abnormal uterine and vaginal bleeding, unspecified; I10 Essential (primary) hypertension; J45.909 Unspecified asthma, uncomplicated; K21.9 Gastro-esophageal reflux disease without esophagitis; Z79.899 Other long term (current) drug therapy
CPT/HCPCS: 58558; 58300; 00952; 36415; 80053; 81025; 85027; 86850; 86900; 86901; 88305; J2405

== ENCOUNTER → 2025-09-04 | Outpatient (CLI) | payer MEDICAID, SELFPAY | END | disposition home or self-care (01) | LOC: LABSPEC 16:21 | PROVIDERS: PCP Nurse Practitioner Family; Visit Provider Nurse Practitioner Women's Health | DX: R30.0 Dysuria (principal) | CPT/HCPCS: 87086; 87088 ==